=== PATIENT | female | born 1985 | race Caucasian/White ===

== ENCOUNTER 2016-07-21 18:37 | Emergency (ER) | payer OTHER ==
[2016-07-21] MEDS ORDERED: MORPHINE SULFATE 2 MG INJ IV ONE (19:11)
[2016-07-21] MEDS ORDERED: Phenergan 25 MG INJ IV ONE (19:11)
[2016-07-21] MEDS ORDERED: Phenergan 25 MG INJ ONE (19:17)
[2016-07-21] MEDS ORDERED: MORPHINE SULFATE 2 MG INJ ONE (19:18)
[2016-07-21 19:36] LABS: Mean Cell Volume 93.1 fl (78-100); Mean Corpuscular Hemoglobin 31.5 pg (26-32); Mean Platelet Volume 9.3 fl (6-9.5); Platelet Count 335 K/mm3 (150-450); Red Blood Count 4.35 M/mm3 (4.1-5.4); White Blood Count 10.9 K/mm3 (4.0-10.5)
--- NOTE | 2016-07-21 19:43 | ERPHSYRPT ---
- History of Present Illness Time Seen by Provider: 07/21/16 19:38 Source: patient Exam Limitations: no limitations Patient Subjective Stated Complaint: PT HERE FOR INFECTED TATTOO FOR 3 1/2 WEEKS NOW, HAS BEEN ON 2 ROUNDS OF ANTIBOTICS,CO PAIN TO RIGHT FOOT Triage Nursing Assessment: PT ALERT, RESP EASY, SKIN W/D, RIGHT FOOT WITH TATTOO TO TOP OF FOOT THAT IS OPEN, DRAINING YELLOW DRAINAGE, HAS SCAB TO CENTER OF TATTOO Physician History: Pt had tatoo on 5/6 on both feet. Since then R foot with swelling, redness and pain to top of foot. Have been on 2 rounds of antibiotics, Keflex and Cipro, with minimal relief. Noitced yellowish fluid discharge yesterday. No fever, chills, dizziness or weakness. Timing/Duration: week(s) (2), constant Quality: burning, painful Severity: moderate Location: feet (R) Possible Causes: other (Tattoo) Modifying Factors: Improves With: other (Naproxen) Associated Symptoms: No change in skin texture, No fever, No numbness, No paresthesia Allergies/Adverse Reactions: No Known Drug Allergies Allergy (Verified 07/21/16 18:50) Home Medications: Humalog 10 units SQ TID 06/08/12 [History] Alprazolam 1 mg [Xanax 1 mg] 1 mg PO DAILY 02/13/14 [History] Simvastatin 0 mg PO DAILY 02/13/14 [History] Insulin Detemir [Levemir] 15 units BID 07/21/16 [History] Lisinopril 5 mg DAILY 07/21/16 [History] Hx Tetanus, Diphtheria Vaccination/Date Given: Yes (2015) Hx Influenza Vaccination/Date Given: No Hx Pneumococcal Vaccination/Date Given: No Immunizations Up to Date: Yes - Review of Systems Constitutional: No Fever, No Chills Eyes: No Symptoms Ears, Nose, & Throat: No Symptoms Respiratory: No Cough, No Dyspnea Cardiac: No Chest Pain, No Edema, No Syncope Abdominal/Gastrointestinal: No Abdominal Pain, No Nausea, No Vomiting, No Diarrhea Genitourinary Symptoms: No Dysuria Musculoskeletal: No Back Pain, No Neck Pain Skin: Cellulitis (top of R foot with some erythema and tenderness. No discharge noted ), No Rash Neurological: No Dizziness, No Focal Weakness, No Sensory Changes Psychological: No Symptoms Endocrine: No Symptoms All Other Systems: Reviewed and Negative - Past Medical History Pertinent Past Medical History: Yes Neurological History: No Pertinent History, Peripheral Neuropathy ENT History: No Pertinent History Cardiac History: No Pertinent History Respiratory History: No Pertinent History Endocrine Medical History: Diabetes Type I Musculoskeletal History: No Pertinent History GI Medical History: No Pertinent History History: No Pertinent History Psycho-Social History: Anxiety, Depression Female Reproductive Disorders: No Pertinent History Other Medical History: was taken off of diabetic pump and put on sub q insulin coverage- 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 - Past Surgical History Past Surgical History: Yes Neuro Surgical History: No Pertinent History Cardiac: No Pertinent History Respiratory: No Pertinent History Gastrointestinal: No Pertinent History Genitourinary: No Pertinent History Musculoskeletal: No Pertinent History Female Surgical History: Dilation & Curettage, Section - Social History Smoking Status: Current some day smoker (1/2 - PPD) How long have you smoked: 10 Exposure to second hand smoke: Yes Alcohol Use: None Drug Use: none Patient Lives Alone: No Significant Family History: heart disease, diabetes - Female History Hx Last Menstrual Period: UNKNOWN - Nursing Vital Signs Nursing Vital Signs: Initial Vital Signs Temperature 97.2 F Pulse Rate 115 Respiratory Rate 16 Blood Pressure [Left Arm] 138/87 Pain Intensity 8 - Physical Exam General Appearance: no apparent distress, alert Eye Exam: PERRL/EOMI, eyes nml inspection Ears, Nose, Throat Exam: normal ENT inspection, pharynx normal, moist mucous membranes Neck Exam: normal inspection, non-tender, supple, full range of motion Respiratory Exam: normal breath sounds, lungs clear, No respiratory distress Cardiovascular Exam: regular rate/rhythm, normal heart sounds Gastrointestinal/Abdomen Exam: soft, mass, No tenderness Back Exam: normal inspection, normal range of motion, No CVA tenderness, No vertebral tenderness Extremity Exam: normal range of motion, other (R foot: top of foot with some swelling/tenderness, no discharge noted, +2 DP bilat.) Neurologic Exam: alert, oriented x 3, cooperative, normal mood/affect, sensation nml, No motor deficits Skin Exam: normal color, warm, dry SpO2: 97 Oxygen Delivery: Room Air - Course Nursing assessment & vital signs reviewed: Yes Ordered Tests: Active Orders 24 hr Category Date Time Status IV Insertion STAT Care 07/21/16 19:09 Active BMP Stat Lab 07/21/16 19:23 Completed CBC W DIFF Stat Lab 07/21/16 19:23 Completed Manual Differential NC Stat Lab 07/21/16 19:23 Completed UA W/ MICROSCOPIC Stat Lab 07/21/16 19:23 Completed Urine Triage Profile Stat Lab 07/21/16 19:23 Completed Medication Summary Discontinued Medications Generic Name Dose Route Start Last Admin Trade Name Chaim PRN Reason Stop Dose Admin Ceftriaxone Sodium/Dextrose 1 g in 50 mls @ 100 mls/hr 07/21/16 19:47 19:55 Rocephin 1 Gm-D5w 50 Ml Bag IV 07/21/16 20:16 100 mls/hr STAT STA Administration Ceftriaxone Sodium/Dextrose Confirm 07/21/16 19:54 Rocephin 1 Gm-D5w 50 Ml Bag Administered 07/21/16 19:55 Dose 1 g in 50 mls @ ud IV .STK-MED ONE Morphine Sulfate 2 mg 07/21/16 19:11 07/21/16 19:20 Morphine Sulfate 2 Mg Inj IV 07/21/16 19:12 2 mg STAT ONE Administration Morphine Sulfate Confirm 07/21/16 19:18 Morphine Sulfate 2 Mg Inj Administered 07/21/16 19:19 Dose 2 mg .ROUTE .STK-MED ONE Promethazine HCl 12.5 mg 07/21/16 19:11 07/21/16 19:20 Phenergan 25 Mg Inj IV 07/21/16 19:12 12.5 mg STAT ONE Administration Promethazine HCl Confirm 07/21/16 19:17 Phenergan 25 Mg Inj Administered 07/21/16 19:18 Dose 25 mg .ROUTE .STK-MED ONE Lab/Rad Data: Laboratory Result Diagrams 07/21/16 19:23 07/21/16 19:23 Laboratory Results 07/21/16 07/21/16 07/21/16 Range/Units 19:23 19:23 19:23 WBC (4.0-10.5) K/mm3 RBC (4.1-5.4) M/mm3 Hgb (12.0-16.0) gm/dl Hct (35-47) % MCV (78-100) fl MCH (26-32) pg MCHC (32-36) g/dl RDW (11.5-14.0) % Plt Count (150-450) K/mm3 MPV (6-9.5) fl Segmented Neutrophils (36.0-66.0) % Band Neutrophils (0.0-2.0) % Lymphocytes (Manual) (24-44) % Monocytes (Manual) (0.0-12.0) % Eosinophils (Manual) (0.00-3.0) % Differential Comment Atypical Lymphocytes % Platelet Estimate (NORMAL) Sodium 141 (136-145) mEq/L Potassium 3.9 (3.5-5.1) mEq/L Chloride 104 (98-107) mEq/L Carbon Dioxide 29.3 (21-32) mEq/L Anion Gap 11.3 (5-15) MEQ/L BUN 17 (9-20) mg/dL Creatinine 0.88 (0.55-1.30) mg/dl Estimated GFR > 60 ML/MIN Glucose 137 H (70-110) MG/DL Calcium 9.9 (8.5-10.1) mg/dL Ur Collection Type CLEAN CATCH Urine Color YELLOW (YELLOW) Urine Appearance CLEAR (CLEAR) Urine pH 7.0 (5-6) Ur Specific [place] 1.025 (1.005-1.025) Urine Protein 100 (Negative) Urine Glucose (UA) 100 (NEGATIVE) mg/dL Urine Ketones NEGATIVE (NEGATIVE) Urine Nitrite NEGATIVE (NEGATIVE) Urine Bilirubin NEGATIVE (NEGATIVE) Urine Urobilinogen 0.2 (0-1) mg/dL Urine WBC (Auto) NEGATIVE (NEGATIVE) Urine RBC (Auto) TRACE-INTACT (0-5) Rodney/ul Urine Microscopic RBC 0-2 (0-2) /HPF Urine Microscopic WBC 0-2 (0-5) /HPF Ur Epithelial Cells MODERATE (FEW) /HPF Urine Bacteria RARE (NEGATIVE) /HPF Hyaline Casts 0-2 (0-2) /LPF Urine Opiates Level NEG. (NEGATIVE) Ur Methadone NEG. (NEGATIVE) Urine Barbiturates NEG. (NEGATIVE) Ur Phencyclidine (PCP) NEG. (NEGATIVE) Urine Amphetamine NEG. (NEGATIVE) U Benzodiazepine Level NEG. (NEGATIVE) Urine Cocaine NEG. (NEGATIVE) Urine Marijuana (THC) NEG. (NEGATIVE) Specimen Received 07/21/16 19207/21/16 Range/Units 19:23 WBC 10.9 H (4.0-10.5) K/mm3 RBC 4.35 (4.1-5.4) M/mm3 Hgb 13.7 (12.0-16.0) gm/dl Hct 40.5 (35-47) % MCV 93.1 (78-100) fl MCH 31.5 (26-32) pg MCHC 33.8 (32-36) g/dl RDW 13.0 (11.5-14.0) % Plt Count 335 (150-450) K/mm3 MPV 9.3 (6-9.5) fl Segmented Neutrophils 43 (36.0-66.0) % Band Neutrophils 1 (0.0-2.0) % Lymphocytes (Manual) 43 (24-44) % Monocytes (Manual) 3 (0.0-12.0) % Eosinophils (Manual) 2 (0.00-3.0) % Differential Comment NORMAL Atypical Lymphocytes 8 % Platelet Estimate NORMAL (NORMAL) Sodium (136-145) mEq/L Potassium (3.5-5.1) mEq/L Chloride (98-107) mEq/L Carbon Dioxide (21-32) mEq/L Anion Gap (5-15) MEQ/L BUN (9-20) mg/dL Creatinine (0.55-1.30) mg/dl Estimated GFR ML/MIN Glucose (70-110) MG/DL Calcium (8.5-10.1) mg/dL Ur Collection Type Urine Color (YELLOW) Urine Appearance (CLEAR) Urine pH (5-6) Ur Specific [place] (1.005-1.025) Urine Protein (Negative) Urine Glucose (UA) (NEGATIVE) mg/dL Urine Ketones (NEGATIVE) Urine Nitrite (NEGATIVE) Urine Bilirubin (NEGATIVE) Urine Urobilinogen (0-1) mg/dL Urine WBC (Auto) (NEGATIVE) Urine RBC (Auto) (0-5) Rodney/ul Urine Microscopic RBC (0-2) /HPF Urine Microscopic WBC (0-5) /HPF Ur Epithelial Cells (FEW) /HPF Urine Bacteria (NEGATIVE) /HPF Hyaline Casts (0-2) /LPF Urine Opiates Level (NEGATIVE) Ur Methadone (NEGATIVE) Urine Barbiturates (NEGATIVE) Ur Phencyclidine (PCP) (NEGATIVE) Urine Amphetamine (NEGATIVE) U Benzodiazepine Level (NEGATIVE) Urine Cocaine (NEGATIVE) Urine Marijuana (THC) (NEGATIVE) Specimen Received - Progress Progress: improved Progress Note: 07/21/16 20:32 Pt. given Rocephin, Morphine for discomfort, which did give her some relief Counseled pt/family regarding: lab results, diagnosis - Departure Time of Disposition: 20:32 Departure Disposition: Home Clinical Impression: Cellulitis Condition: Stable Critical Care Time: No Instructions: Cellulitis -- Adult Additional Instructions: RX: Augmenti XR, [place] Elevate R foot, ice, Motrin 600mg every 6 hrs with food to decrease pain/ swelling Return for worse pain, redness, swelling, fever, chills or any problems Prescriptions: Hydrocodone Bit/Acetaminophen [[place] 5-325 Tablet] 1 each PO Q6H PRN PRN #12 tablet PRN Reason: Pain Amoxicillin/Potassium Clav [Augmentin 875-125 Tablet] 1 each PO BID #20 tablet
[2016-07-21 19:44] LABS: ANION GAP 11.3 MEQ/L (5-15); BLOOD UREA NITROGEN 17 mg/dL (9-20); CHLORIDE 104 mEq/L (98-107); Carbon Dioxide 29.3 mEq/L (21-32); Glucose 137 MG/DL (70-110); Potassium 3.9 mEq/L (3.5-5.1); SODIUM 141 mEq/L (136-145)
[2016-07-21] MEDS ORDERED: ROCEPHIN 1 Gm-D5w 50 ml Bag** 1 G/50 ML IVPB IV STA (19:47)
[2016-07-21 19:53] LABS: Collection Type CLEAN CATCH
[2016-07-21 19:54] LABS: ADD URINE CULTURE? NO (NO); Bacteria RARE /HPF (NEGATIVE); COMPLETE URINE MICROSCOPIC? YES; Epithelial Cells MODERATE /HPF (FEW); Hyaline Casts 0-2 /LPF (0-2); WBC 0-2 /HPF (0-5)
[2016-07-21] MEDS ORDERED: ROCEPHIN 1 Gm-D5w 50 ml Bag** 1 G/50 ML IVPB IV ONE (19:54)
[2016-07-21 20:08] LABS: ATYPICAL LYMPHS 8 %; BAND 1 % (0.0-2.0); Eosinophil 2 % (0.00-3.0); Platelet Estimate NORMAL (NORMAL); Total Cells Counted 100
[2016-07-21 20:51] VITALS: BP 140/88; PULSE 102; O2SAT 96
== END 2016-07-21 20:55 | disposition home or self-care (01) ==
LOC: ED 18:37
DX: L03.115 Cellulitis of right lower limb (principal); L81.8 Other specified disorders of pigmentation
CPT/HCPCS: 36000; 36415; 80048; 80307; 81000; 85025; 96365; 96374; 99284; J0696; J2270; J2550

== ENCOUNTER 2016-09-10 22:32 | Inpatient (IN) | payer OTHER ==
[2016-09-10] MEDS ORDERED: Sodium Chloride 0.9% 1000 ML 1,000 ML IV SCH (23:00)
[2016-09-10 23:11] LABS: Lactic Acid 2.2 (0.4-2.0)
[2016-09-10] MEDS ORDERED: NORCO 5/325 MG PO ONE (23:16)
[2016-09-10 23:19] LABS: Mean Cell Volume 92.3 fl (78-100); Mean Platelet Volume 10.8 fl (6-9.5); Platelet Count 255 K/mm3 (150-450); Red Blood Count 3.65 M/mm3 (4.1-5.4); Red Cell Distribution Width 12.9 % (11.5-14.0); White Blood Count 13.2 K/mm3 (4.0-10.5)
[2016-09-10] MEDS ORDERED: Vancomycin 1GM/ Ns 250ML*** 250 ML IV ONE (23:23)
[2016-09-10] MEDS ORDERED: Sodium Chloride 0.9% 1000 ML 1,000 ML ONE (23:24)
[2016-09-10] MEDS ORDERED: NORCO 5/325 MG ONE (23:24)
[2016-09-10 23:29] LABS: Mean Corpuscular Hemoglobin 31.7 pg (26-32)
[2016-09-10 23:38] LABS: VBG BASE EXCESS -3.1 (-2.0-2.0); VBG CARBOXYHEMOGLOBIN 2.6 % T HGB (0.0-6.9); VBG HCO3- 20.9 meq/L (22-28); VBG HEMOGLOBIN 11.8; VBG O2 SATURATION 81.1 (95-100); VBG POTASSIUM 4.5 (3.5-5.1); VBG pH 7.41 (7.32-7.42)
[2016-09-10 23:41] LABS: ALBUMIN 1.8 g/dL (3.4-5.0); ALKALINE PHOSPHATASE 603 U/L (46-116); ANION GAP 20.1 MEQ/L (5-15); BLOOD UREA NITROGEN 15 mg/dL (9-20); CHLORIDE 93 mEq/L (98-107); Carbon Dioxide 22.8 mEq/L (21-32); Potassium 3.9 mEq/L (3.5-5.1); SGOT/AST 81 U/L (15-37); SGPT/ALT 182 U/L (12-78); SODIUM 132 mEq/L (136-145); Total Protein 6.3 gm/dL (6.4-8.2)
[2016-09-10 23:56] LABS: Glucose 517 MG/DL (70-110)
[2016-09-11 00:08] LABS: Bilirubin NEGATIVE (NEGATIVE); Blood NEGATIVE Ery/ul (0-5); COMPLETE URINE MICROSCOPIC? NO; Collection Type CLEAN CATCH; Glucose 1000 mg/dL (NEGATIVE); Leukocyte Esterase NEGATIVE (NEGATIVE)
[2016-09-11 00:25] LABS: ATYPICAL LYMPHS 1 %; BAND 12 % (0.0-2.0); Dohle Bodies 2+; Eosinophil 2 % (0.00-3.0); Metamyelocyte 2 %; Platelet Estimate NORMAL (NORMAL); Total Cells Counted 100
[2016-09-11] MEDS ORDERED: Azactam 1 GM/100 ML D5W 1 GM/100 ML IVPB IV ONE (00:33)
[2016-09-11] MEDS ORDERED: Sodium Chloride 0.9% 500 ML 500 ML IV ONE (00:36)
[2016-09-11] MEDS ORDERED: NovoLIN R SQ STA (00:42)
[2016-09-11] MEDS ORDERED: NovoLIN R ONE ×2 (00:48→02:06)
[2016-09-11] MEDS ORDERED: Sodium Chloride 0.9% 1000 ML 1,000 ML ONE ×2 (00:48→02:07)
--- NOTE | 2016-09-11 00:52 | ERPHSYRPT ---
- History of Present Illness Source: patient Exam Limitations: clinical condition Patient Subjective Stated Complaint: pt states she has a wound to her head where she hit it on her car door a week ago thursday. states she has been having fever, chill, and aches. Triage Nursing Assessment: pt alert and oriented, asnwers questions approp. pt ambulatory with steady gait noted. respirations nonlabored with lungs cta. mult scabs noted to bilat lower ext. scab noted to lt posterior head with redness surrounding. Physician History: Patient with history of head injuries in 9 days ago on corner of a car door without loss of consciousness did not think much of it. The area has been slightly swollen and painful since that time was seen at [facility] 2 days ago had a head CT was placed on Cleocin antibiotic as well as Naprosyn. She had abnormal liver enzymes at that time. She has had poor appetite but has been trying to drink water think she is dehydrated. Patient has juvenile diabetic and sugars she thinks is probably also out of control. Had a fever today without treatment at home. Had a head CT done at that time not sure what it showed. Patient was given prescription for Cleocin and Naprosyn at that time records from [facility] were reviewed. There was a fluid collection/ possible hematoma left occipital area. No nausea or vomiting just very poor appetite. Timing/Duration: today, day(s) (9), worse Fever Severity: mild Associated Symptoms: cough, headache, muscle aches, weakness Allergies/Adverse Reactions: No Known Drug Allergies Allergy (Verified 09/10/16 22:54) Home Medications: Humalog 12 units SQ TID 06/08/12 [History] Alprazolam 1 mg [Xanax 1 mg] 1 mg PO DAILY 02/13/14 [History] Insulin Detemir [Levemir] 15 units BID 07/21/16 [History] Hx Tetanus, Diphtheria Vaccination/Date Given: Yes (2015) Hx Influenza Vaccination/Date Given: No Hx Pneumococcal Vaccination/Date Given: No Immunizations Up to Date: Yes - Review of Systems Constitutional: Fever, Chills, Fatigue, Lethargy, Malaise, Weakness Eyes: No Symptoms Ears, Nose, & Throat: No Symptoms Respiratory: Cough (NONPRODUCTIVE NO WHEEZING OR SHORTNESS OF BREATH) Cardiac: No Symptoms Abdominal/Gastrointestinal: Appetite Changes, No Abdominal Pain, No Nausea, No Vomiting Genitourinary Symptoms: No Symptoms Musculoskeletal: No Symptoms Skin: No Symptoms Neurological: Headache Psychological: No Symptoms Endocrine: No Symptoms Hematologic/Lymphatic: No Symptoms Immunological/Allergic: No Symptoms All Other Systems: Reviewed and Negative - Past Medical History Pertinent Past Medical History: Yes Neurological History: No Pertinent History, Peripheral Neuropathy ENT History: No Pertinent History Cardiac History: No Pertinent History Respiratory History: No Pertinent History Endocrine Medical History: Diabetes Type I Musculoskeletal History: No Pertinent History GI Medical History: No Pertinent History History: No Pertinent History Psycho-Social History: Anxiety, Depression Female Reproductive Disorders: No Pertinent History Other Medical History: was taken off of diabetic pump and put on sub q insulin coverage- sees [facility] um rn - Past Surgical History Past Surgical History: Yes Neuro Surgical History: No Pertinent History Cardiac: No Pertinent History Respiratory: No Pertinent History Gastrointestinal: No Pertinent History Genitourinary: No Pertinent History Musculoskeletal: No Pertinent History Female Surgical History: Dilation & Curettage, Section - Social History Smoking Status: Current some day smoker How long have you smoked: 10 Exposure to second hand smoke: Yes Alcohol Use: None Drug Use: none Patient Lives Alone: No Significant Family History: heart disease, diabetes - Female History Hx Last Menstrual Period: depo shot - Nursing Vital Signs Nursing Vital Signs: Initial Vital Signs Temperature 98.6 F 09/10/16 22:38 Pulse Rate 105 H 09/10/16 22:38 Respiratory Rate 18 09/10/16 22:38 Blood Pressure 142/74 09/10/16 22:38 O2 Sat by Pulse Oximetry 97 09/10/16 22:38 Pain Scale Pain Intensity 8 - Physical Exam General Appearance: moderate distress, thin Eye Exam: PERRL/EOMI, eyes nml inspection, No photophobia ENT Exam: normal ENT inspection Neck Exam: normal inspection, non-tender, supple, full range of motion Respiratory Exam: normal breath sounds, decreased air movement Cardiovascular/Chest Exam: normal heart sounds, regular rate/rhythm, murmur Gastrointestinal/Abdominal Exam: soft, non tender, no distention, no mass, no guarding Pelvic Exam: not done Rectal Exam: deferred Extremity Exam: non-tender, normal range of motion, normal inspection Neurologic Exam: alert, oriented x 3, cooperative, co founder & ceo II-XII nml as tested, other (TENDER SLIGHTLY RAISED AREA OF EDEMA LEFT OCCIPITAL AREA WITH SMALL CENTRAL ABRASION) Skin Exam: normal color, warm, dry, rash (BILATERAL DORSAL FEET) Lymphatic: No adenopathy SpO2 Interpretation: borderline oxygenation SpO2: 92 (O2 APPLIED) Oxygen Delivery: Room Air - Course Nursing assessment & vital signs reviewed: Yes - Radiology Exams Chest X-ray Interpretation: Reviewed by me, Discussed w/ radiologist, Negative - CT Exams Head CT Interpretation: Tele-radiologist Report, Other (NO ACUTE INTRACRANIAL PATHOLOGY CONTINUES WITH AREA OF SOFT TISSUE SWELLING LEFT SUBOCCIPITAL AREA) Ordered Tests: Active Orders 24 hr Category Date Time Status Accucheck STAT Care 09/10/16 22:54 Active Accucheck STAT Care 09/11/16 00:29 Active A P Mechanic STAT Care 09/10/16 22:54 Active IV Insertion STAT Care 09/10/16 22:54 Active Pulse Oximetry (ED) STAT Care 09/10/16 22:54 Active Rectal Temperature STAT Care 09/10/16 22:54 Active CHEST 1 VIEW (PORTABLE) Stat Exams 09/10/16 23:10 Taken HEAD WITHOUT CONTRAST [CT] Stat Exams 09/11/16 02:40 Taken AMYLASE Stat Lab 09/11/16 00:00 Completed BLOOD CULTURE Stat Lab 09/10/16 23:14 Received CBC W DIFF Stat Lab 09/10/16 23:13 Completed CMP Stat Lab 09/10/16 23:13 Completed CULTURE, THROAT Stat Lab 09/10/16 23:14 Received CULTURE,URINE Stat Lab 09/10/16 22:55 Ordered HCG QUALITATIVE,SERUM Stat Lab 09/10/16 23:13 Completed LIPASE Stat Lab 09/11/16 00:00 Completed Lactic Acid Stat Lab 09/10/16 23:06 Completed Lactic Acid Stat Lab 09/11/16 02:04 Completed Lactic Acid Stat Lab 09/11/16 04:32 Ordered Manual Differential NC Stat Lab 09/10/16 23:13 Completed STREP SCREEN-BETA A Stat Lab 09/10/16 23:14 Completed UA Stat Lab 09/11/16 00:02 Completed VENOUS BLOOD GAS Stat Lab 09/10/16 23:06 Completed Transfer Order Routine Transfer 09/11/16 04:13 Ordered Medication Summary Generic Name Dose Route Start Last Admin Trade Name Freq PRN Reason Stop Dose Admin Sodium Chloride 1,000 mls @ 100 mls/hr 09/11/16 04:15 07/20/17 04:12 Sodium Chloride 0.9% 1000 Ml IV 10/11/16 04:14 100 mls/hr .Q10H ELOY Administration Discontinued Medications Generic Name Dose Route Start Last Admin Trade Name Chaim PRN Reason Stop Dose Admin Hydrocodone Bitart/Acetaminophen 1 tab 09/10/16 23:16 09/10/16 23:26 [place] 5/325 Mg PO 09/10/16 23:17 1 tab SENT HOME W/ PATIENT ONE Administration Hydrocodone Bitart/Acetaminophen Confirm 09/10/16 23:24 [place] 5/325 Mg Administered 09/10/16 23:25 Dose 1 tab .ROUTE .STK-MED ONE Hydrocodone Bitart/Acetaminophen 1 tab 09/11/16 02:20 09/11/16 02:48 [place] 5/325 Mg PO 09/11/16 02:21 1 tab STAT ONE Administration Hydrocodone Bitart/Acetaminophen Confirm 09/11/16 02:30 [place] 5/325 Mg Administered 09/11/16 02:31 Dose 1 tab .ROUTE .STK-MED ONE Sodium Chloride 1,000 mls @ 100 mls/hr 09/10/16 23:00 09/10/16 23:50 Sodium Chloride 0.9% 1000 Ml IV 10/10/16 22:59 999 mls/hr .Q10H ELOY Administration Sodium Chloride Confirm 09/10/16 23:24 Sodium Chloride 0.9% 1000 Ml Administered 09/10/16 23:25 Dose 1,000 mls @ ud .ROUTE .STK-MED ONE Vancomycin HCl 250 mls @ 167 mls/hr 09/10/16 23:23 09/10/16 23:45 Vancomycin 1gm/ Ns 250ml IV 09/11/16 00:52 167 mls/hr STAT ONE Administration Aztreonam 1 gm in 100 mls @ 200 mls/hr 09/11/16 00:33 09/11/16 01:53 Azactam 1 Gm/100 Ml D5w IV 09/11/16 01:02 200 mls/hr STAT ONE Administration Sodium Chloride 500 mls @ 500 mls/hr 09/11/16 00:36 09/11/16 00:51 Sodium Chloride 0.9% 500 Ml IV 09/11/16 01:35 500 mls/hr .Q1H ONE Administration Sodium Chloride Confirm 09/11/16 00:48 Sodium Chloride 0.9% 1000 Ml Administered 09/11/16 00:49 Dose 1,000 mls @ ud .ROUTE .[facility] ONE Insulin Human Regular 100 101 mls @ 6.06 mls/hr 09/11/16 02:00 09/11/16 03:35 units/ Sodium Chloride IV 10/11/16 01:59 3 units/hr .[id number] ELOY 3.03 mls/hr 6 UNITS/HR Infusion Sodium Chloride Confirm 09/11/16 02:07 Sodium Chloride 0.9% 100 Ml Ivpb Administered 09/11/16 02:08 Dose 100 mls @ ud IV .STK-MED ONE Sodium Chloride Confirm 09/11/16 02:07 Sodium Chloride 0.9% 1000 Ml Administered 09/11/16 02:08 Dose 1,000 mls @ ud .ROUTE .[facility] ONE Insulin Human Regular 100 101 mls @ 3.03 mls/hr 09/11/16 03:45 units/ Sodium Chloride IV 10/11/16 03:44 .Q24H ELOY 3 UNITS/HR Insulin Human Regular 8 unit 09/11/16 00:42 09/11/16 00:51 Novolin R SQ 09/11/16 00:43 8 unit STAT STA Administration Insulin Human Regular Confirm 09/11/16 00:48 Novolin R Administered 09/11/16 00:49 Dose 8 unit .ROUTE .[facility] ONE Insulin Human Regular Confirm 09/11/16 02:06 Novolin R Administered 09/11/16 02:07 Dose 1 unit .ROUTE .[facility] ONE Lab/Rad Data: Laboratory Result Diagrams 09/10/16 23:13 09/10/16 23:13 Laboratory Results 09/11/16 09/11/16 09/11/16 Range/Units 02:04 00:02 00:00 WBC (4.0-10.5) K/mm3 RBC (4.1-5.4) M/mm3 Hgb (12.0-16.0) gm/dl Hct (35-47) % MCV (78-100) fl MCH (26-32) pg MCHC (32-36) g/dl RDW (11.5-14.0) % Plt Count (150-450) K/mm3 MPV (6-9.5) fl Segmented Neutrophils (36.0-66.0) % Band Neutrophils (0.0-2.0) % Lymphocytes (Manual) (24-44) % Monocytes (Manual) (0.0-12.0) % Eosinophils (Manual) (0.00-3.0) % Metamyelocytes % Differential Comment Atypical Lymphocytes % Dohle Bodies Platelet Estimate (NORMAL) VBG pH (7.32-7.42) VBG pCO2 at Pat Temp (42-55) mm/Hg VBG pO2 at Pat Temp (25-40) mm/Hg VBG HCO3 (22-28) meq/L VBG O2 Sat (Alejandra) (95-100) VBG Base Excess (-2.0-2.0) VBG Hemoglobin VBG Carboxyhemoglobin (0.0-6.9) % T HGB POC Potassium (3.5-5.1) Sodium (136-145) mEq/L Potassium (3.5-5.1) mEq/L Chloride (98-107) mEq/L Carbon Dioxide (21-32) mEq/L Anion Gap (5-15) MEQ/L BUN (9-20) mg/dL Creatinine (0.55-1.30) mg/dl Estimated GFR ML/MIN Glucose (70-110) MG/DL Lactic Acid 2.4 H (0.4-2.0) Calcium (8.5-10.1) mg/dL Total Bilirubin (0.2-1.0) mg/dL AST (15-37) U/L ALT (12-78) U/L Alkaline Phosphatase (46-116) U/L Serum Total Protein (6.4-8.2) gm/dL Albumin (3.4-5.0) g/dL Amylase 10 L (25-115) U/L Lipase 59 L (73-393) U/L Serum , Qual (Negative) Ur Collection Type CLEAN CATCH Urine Color YELLOW (YELLOW) Urine Appearance CLEAR (CLEAR) Urine pH 5.0 (5-6) Ur Specific [place] 1.020 (1.005-1.025) Urine Protein NEGATIVE (Negative) Urine Ketones MODERATE (NEGATIVE) Urine Blood NEGATIVE (0-5) Rodney/ul Urine Nitrite NEGATIVE (NEGATIVE) Urine Bilirubin NEGATIVE (NEGATIVE) Urine Urobilinogen NORMAL (0-1) mg/dL Ur Leukocyte Esterase NEGATIVE (NEGATIVE) Urine Glucose 1000 (NEGATIVE) mg/dL Streptococcus Screen (Negative) Specimen Received 09/10/16 2403 09/10/16 09/10/16 09/10/16 Range/Units 23:14 23:13 23:13 WBC (4.0-10.5) K/mm3 RBC (4.1-5.4) M/mm3 Hgb (12.0-16.0) gm/dl Hct (35-47) % MCV (78-100) fl MCH (26-32) pg MCHC (32-36) g/dl RDW (11.5-14.0) % Plt Count (150-450) K/mm3 MPV (6-9.5) fl Segmented Neutrophils (36.0-66.0) % Band Neutrophils (0.0-2.0) % Lymphocytes (Manual) (24-44) % Monocytes (Manual) (0.0-12.0) % Eosinophils (Manual) (0.00-3.0) % Metamyelocytes % Differential Comment Atypical Lymphocytes % Dohle Bodies Platelet Estimate (NORMAL) VBG pH (7.32-7.42) VBG pCO2 at Pat Temp (42-55) mm/Hg VBG pO2 at Pat Temp (25-40) mm/Hg VBG HCO3 (22-28) meq/L VBG O2 Sat (Alejandra) (95-100) VBG Base Excess (-2.0-2.0) VBG Hemoglobin VBG Carboxyhemoglobin (0.0-6.9) % T HGB POC Potassium (3.5-5.1) Sodium 132 L (136-145) mEq/L Potassium 3.9 (3.5-5.1) mEq/L Chloride 93 L (98-107) mEq/L Carbon Dioxide 22.8 (21-32) mEq/L Anion Gap 20.1 H (5-15) MEQ/L BUN 15 (9-20) mg/dL Creatinine 1.05 (0.55-1.30) mg/dl Estimated GFR > 60 ML/MIN Glucose 517 H* (70-110) MG/DL Lactic Acid (0.4-2.0) Calcium 9.0 (8.5-10.1) mg/dL Total Bilirubin 1.20 H (0.2-1.0) mg/dL AST 81 H (15-37) U/L ALT 182 H (12-78) U/L Alkaline Phosphatase 603 H (46-116) U/L Serum Total Protein 6.3 L (6.4-8.2) gm/dL Albumin 1.8 L (3.4-5.0) g/dL Amylase (25-115) U/L Lipase (73-393) U/L Serum , Qual NEGATIVE (Negative) Ur Collection Type Urine Color (YELLOW) Urine Appearance (CLEAR) Urine pH (5-6) Ur Specific [place] (1.005-1.025) Urine Protein (Negative) Urine Ketones (NEGATIVE) Urine Blood (0-5) Rodney/ul Urine Nitrite (NEGATIVE) Urine Bilirubin (NEGATIVE) Urine Urobilinogen (0-1) mg/dL Ur Leukocyte Esterase (NEGATIVE) Urine Glucose (NEGATIVE) mg/dL Streptococcus Screen NEGATIVE (Negative) Specimen Received 09/10/16 09/10/16 09/10/16 Range/Units 23:13 23:06 23:06 WBC 13.2 H (4.0-10.5) K/mm3 RBC 3.65 L (4.1-5.4) M/mm3 Hgb 11.6 L (12.0-16.0) gm/dl Hct 33.7 L (35-47) % MCV 92.3 (78-100) fl MCH 31.7 (26-32) pg MCHC 34.4 (32-36) g/dl RDW 12.9 (11.5-14.0) % Plt Count 255 (150-450) K/mm3 MPV 10.8 H (6-9.5) fl Segmented Neutrophils 63 (36.0-66.0) % Band Neutrophils 12 H (0.0-2.0) % Lymphocytes (Manual) 17 L (24-44) % Monocytes (Manual) 3 (0.0-12.0) % Eosinophils (Manual) 2 (0.00-3.0) % Metamyelocytes 2 % Differential Comment NORMAL Atypical Lymphocytes 1 % Dohle Bodies 2+ Platelet Estimate NORMAL (NORMAL) VBG pH 7.41 (7.32-7.42) VBG pCO2 at Pat Temp 33 L (42-55) mm/Hg VBG pO2 at Pat Temp 41 H (25-40) mm/Hg VBG HCO3 20.9 L (22-28) meq/L VBG O2 Sat (Alejandra) 81.1 L (95-100) VBG Base Excess -3.1 L (-2.0-2.0) VBG Hemoglobin 11.8 VBG Carboxyhemoglobin 2.6 (0.0-6.9) % T HGB POC Potassium 4.5 (3.5-5.1) Sodium (136-145) mEq/L Potassium (3.5-5.1) mEq/L Chloride (98-107) mEq/L Carbon Dioxide (21-32) mEq/L Anion Gap (5-15) MEQ/L BUN (9-20) mg/dL Creatinine (0.55-1.30) mg/dl Estimated GFR ML/MIN Glucose (70-110) MG/DL Lactic Acid 2.2 H (0.4-2.0) Calcium (8.5-10.1) mg/dL Total Bilirubin (0.2-1.0) mg/dL AST (15-37) U/L ALT (12-78) U/L Alkaline Phosphatase (46-116) U/L Serum Total Protein (6.4-8.2) gm/dL Albumin (3.4-5.0) g/dL Amylase (25-115) U/L Lipase (73-393) U/L Serum , Qual (Negative) Ur Collection Type Urine Color (YELLOW) Urine Appearance (CLEAR) Urine pH (5-6) Ur Specific [place] (1.005-1.025) Urine Protein (Negative) Urine Ketones (NEGATIVE) Urine Blood (0-5) Rodney/ul Urine Nitrite (NEGATIVE) Urine Bilirubin (NEGATIVE) Urine Urobilinogen (0-1) mg/dL Ur Leukocyte Esterase (NEGATIVE) Urine Glucose (NEGATIVE) mg/dL Streptococcus Screen (Negative) Specimen Received - Progress Progress: improved Progress Note: 09/11/16 04:06Patient's blood sugar under good control after insulin drip utilized and with blood sugar 245 now discontinued. Patient's initial lactate was 2.2 and was increased to 2.4 and 2 hours. Slightly elevated white blood cell count. Urine negative for infection but with moderate ketones. Patient with history of juvenile diabetes. Chest x-ray negative for pneumonia. Exact site of potential infection is unclear except for possible infected area left occipital area. Patient was treated with vancomycin and Azactam for possible sepsis. Also noted significantly elevated liver enzymes. All this was carefully discussed with Dr. Miranda and patient will be admitted observation for Dr. Wilcox's further evaluation and treatment. This is an acceptance the patient. - Departure Time of Disposition: 04:09 Departure Disposition: Observation Clinical Impression: Ketoacidosis, Elevated lactic acid level, POSSIBLE SEPSIS, RULE OUT INFECTION SUBOCCIPITAL AREA, CONTUSION LEFT SUBOCCIPITAL, Elevated liver enzymes Fever Qualifiers: Fever type: unspecified Qualified Code(s): R50.9 - Fever, unspecified Cephalgia Qualifiers: Headache type: post-traumatic Headache chronicity pattern: unspecified pattern Condition: Fair Critical Care Time: No Referrals: FROILAN FRANCO [Primary Care Provider] -
[2016-09-11] MEDS ORDERED: NOVOLIN R INSULIN (FOR DRIPS)** 100 UNITS in Sodium Chloride 0.9% 100 ML IVPB 100 ML IV SCH ×2 (02:00→03:45)
[2016-09-11] MEDS ORDERED: Sodium Chloride 0.9% 100 ML IVPB 100 ML IV ONE (02:07)
[2016-09-11] MEDS ORDERED: NORCO 5/325 MG PO ONE ×2 (02:20→10:30)
[2016-09-11] MEDS ORDERED: NORCO 5/325 MG ONE (02:30)
[2016-09-11 02:37] LABS: Lactic Acid 2.4 (0.4-2.0)
[2016-09-11 02:46] LABS: LIPASE 59 U/L (73-393)
[2016-09-11] MEDS: Sodium Chloride 0.9% 1000 ML 1,000 ML IV SCH ×2 (04:12→14:01)
[2016-09-11] MEDS ORDERED: Zofran 4 MG/2 ML VIAL IV PRN (04:51)
[2016-09-11] MEDS ORDERED: NovoLOG Insulin SQ PRN (04:51)
[2016-09-11] MEDS ORDERED: VANCOCIN 1 GM VIAL*** 1 GM in Sodium Chloride 0.9% 250 ML 250 ML IV SCH (04:51)
[2016-09-11] MEDS: ULTRAM 50 MG PO PRN ×3 (05:16→14:02)
[2016-09-11] MEDS ORDERED: AZACTAM 1 GM ONE (06:23)
[2016-09-11] MEDS: Azactam 1 GM/100 ML D5W 1 GM/100 ML IVPB IV SCH ×3 (07:15→22:39)
[2016-09-11 07:32] LABS: Mean Cell Volume 93.4 fl (78-100); Mean Platelet Volume 10.3 fl (6-9.5); Platelet Count 254 K/mm3 (150-450); Red Blood Count 3.17 M/mm3 (4.1-5.4); Red Cell Distribution Width 12.8 % (11.5-14.0); White Blood Count 11.4 K/mm3 (4.0-10.5)
[2016-09-11 07:46] LABS: ALBUMIN 1.5 g/dL (3.4-5.0); ALKALINE PHOSPHATASE 488 U/L (46-116); BLOOD UREA NITROGEN 13 mg/dL (9-20); CHLORIDE 99 mEq/L (98-107); Carbon Dioxide 20.9 mEq/L (21-32); Glucose 418 MG/DL (70-110); Mean Corpuscular Hemoglobin 32.1 pg (26-32); Potassium 3.2 mEq/L (3.5-5.1); SGOT/AST 49 U/L (15-37); SGPT/ALT 134 U/L (12-78); SODIUM 135 mEq/L (136-145); Total Protein 5.3 gm/dL (6.4-8.2)
--- NOTE | 2016-09-11 08:42 | XRAY ---
Indication: Fever and cough. Comparison: July 16, 2014. Portable chest again demonstrates right infrahilar fibrosis/scarring. Remaining heart, lungs, and bony thorax normal. Comment: Preliminary interpretation was made by [facility]. No critical discrepancy.
--- NOTE | 2016-09-11 08:47 | XRAY ---
Indication: Left posterior head swelling, laceration, and drainage. Car door injury 1.5 weeks ago. Multiple contiguous axial images obtained through the head without contrast. Comparison: None There is moderate-sized left posterior parietal scalp hematoma. Otherwise normal appearing brain parenchyma, ventricles, and bony calvarium. Visualized paranasal sinuses and mastoid air cells are clear. Impression: Left posterior parietal scalp hematoma. No underlying fracture or acute intracranial abnormalities. Comment: Preliminary interpretation was made by [facility]. No discrepancy. CTDI 50.87
[2016-09-11 09:22] LABS: BAND 2 % (0.0-2.0); Eosinophil 2 % (0.00-3.0); Total Cells Counted 100; Toxic Granulation 2+
[2016-09-11 09:23] LABS: Platelet Estimate NORMAL (NORMAL)
[2016-09-11] MEDS ORDERED: INSULIN DETEMIR 15 UNIT SQ SCH (10:00)
[2016-09-11] MEDS: Lantus Insulin SQ SCH ×2 (10:02→22:40)
[2016-09-11] MEDS: NovoLOG Insulin SQ SCH ×2 (10:03→16:20)
[2016-09-11] MEDS: VANCOCIN 1 GM VIAL*** 1 GM in Sodium Chloride 0.9% 250 ML 250 ML IV SCH ×2 (10:03→23:18)
[2016-09-11] MEDS ORDERED: INSULIN LISPRO 12 UNIT SQ SCH (11:30)
[2016-09-11] MEDS: NovoLOG Insulin SQ PRN (14:02)
[2016-09-11] MEDS: XANAX 1 MG PO SCH (22:38)
[2016-09-12] MEDS: NovoLOG Insulin SQ PRN ×4 (00:53→22:30)
[2016-09-12] MEDS: Sodium Chloride 0.9% 1000 ML 1,000 ML IV SCH ×2 (02:53→16:31)
[2016-09-12] MEDS: ULTRAM 50 MG PO PRN (03:21)
[2016-09-12] MEDS: Azactam 1 GM/100 ML D5W 1 GM/100 ML IVPB IV SCH ×3 (06:04→22:30)
[2016-09-12 07:15] LABS: HEPATITIS B VIRUS CORE TOT AB Non Reactive (Non Reactive); Hepatitis B Surface Ab.Quant. <3.50 mIU/mL (0.00-8.49)
[2016-09-12] MEDS: NovoLOG Insulin SQ SCH ×3 (07:17→16:12)
[2016-09-12 07:38] LABS: Mean Cell Volume 94.1 fl (78-100); Mean Platelet Volume 9.7 fl (6-9.5); Platelet Count 301 K/mm3 (150-450); Red Blood Count 3.23 M/mm3 (4.1-5.4); Red Cell Distribution Width 12.9 % (11.5-14.0)
[2016-09-12 07:39] LABS: Mean Corpuscular Hemoglobin 31.8 pg (26-32)
[2016-09-12 07:58] LABS: BAND 17 % (0.0-2.0); Eosinophil 5 % (0.00-3.0); Hypochromia 1+; Metamyelocyte 1 %; Platelet Estimate NORMAL (NORMAL); Polychromasia 1+; Total Cells Counted 100
[2016-09-12 08:00] LABS: ALBUMIN 1.5 g/dL (3.4-5.0); ALKALINE PHOSPHATASE 513 U/L (46-116); ANION GAP 10.9 MEQ/L (5-15); BLOOD UREA NITROGEN 7 mg/dL (9-20); CHLORIDE 102 mEq/L (98-107); Carbon Dioxide 26.5 mEq/L (21-32); Glucose 290 MG/DL (70-110); Potassium 3.1 mEq/L (3.5-5.1); SGOT/AST 67 U/L (15-37); SGPT/ALT 111 U/L (12-78); SODIUM 136 mEq/L (136-145); Total Protein 5.3 gm/dL (6.4-8.2)
[2016-09-12] MEDS: NORCO 5/325 MG PO PRN ×3 (09:09→22:30)
[2016-09-12] MEDS ORDERED: TROUGH DRUG LEVELS IJ ONE (09:30)
[2016-09-12] MEDS: Lantus Insulin SQ SCH ×2 (10:15→22:30)
[2016-09-12] MEDS: VANCOCIN 1 GM VIAL*** 1 GM in Sodium Chloride 0.9% 250 ML 250 ML IV SCH ×2 (10:45→23:16)
[2016-09-12] MEDS: XANAX 1 MG PO SCH (22:30)
[2016-09-13] MEDS: Azactam 1 GM/100 ML D5W 1 GM/100 ML IVPB IV SCH ×3 (05:48→22:35)
[2016-09-13] MEDS: NORCO 5/325 MG PO PRN ×4 (05:48→22:35)
[2016-09-13] MEDS: Sodium Chloride 0.9% 1000 ML 1,000 ML IV SCH ×2 (05:59→17:32)
[2016-09-13 06:08] LABS: Mean Cell Volume 94.7 fl (78-100); Mean Platelet Volume 9.9 fl (6-9.5); Platelet Count 306 K/mm3 (150-450); Red Blood Count 3.22 M/mm3 (4.1-5.4); Red Cell Distribution Width 12.7 % (11.5-14.0); White Blood Count 9.8 K/mm3 (4.0-10.5)
[2016-09-13 06:24] LABS: Mean Corpuscular Hemoglobin 31.6 pg (26-32)
[2016-09-13 06:39] LABS: ALBUMIN 1.6 g/dL (3.4-5.0); ALKALINE PHOSPHATASE 551 U/L (46-116); ANION GAP 10.6 MEQ/L (5-15); BLOOD UREA NITROGEN 7 mg/dL (9-20); CHLORIDE 100 mEq/L (98-107); Carbon Dioxide 29.5 mEq/L (21-32); Glucose 238 MG/DL (70-110); SGOT/AST 94 U/L (15-37); SGPT/ALT 112 U/L (12-78); SODIUM 137 mEq/L (136-145); Total Protein 5.5 gm/dL (6.4-8.2)
[2016-09-13 07:08] LABS: Potassium 2.9 mEq/L (3.5-5.1)
[2016-09-13 07:16] LABS: Eosinophil 1 % (0.00-3.0); Total Cells Counted 100
[2016-09-13 07:17] LABS: Platelet Estimate NORMAL (NORMAL)
[2016-09-13] MEDS: POTASSIUM CHLORIDE 20 mEq IN WATER 100ML 100 ML IV SCH ×2 (07:41→12:35)
[2016-09-13] MEDS: NovoLOG Insulin SQ SCH ×3 (07:41→16:01)
[2016-09-13] MEDS: NovoLOG Insulin SQ PRN ×3 (07:42→22:37)
[2016-09-13] MEDS: Lantus Insulin SQ SCH ×2 (10:22→22:36)
[2016-09-13] MEDS: Klor Con 10 MEQ PO SCH (10:22)
[2016-09-13] MEDS: VANCOCIN 1 GM VIAL*** 1 GM in Sodium Chloride 0.9% 250 ML 250 ML IV SCH ×2 (10:22→23:34)
--- NOTE | 2016-09-13 15:31 | HP ---
CHIEF COMPLAINT: Head injury, fever and chills. History of poorly controlled diabetes. Anxiety. HISTORY OF PRESENT ILLNESS: The patient is a 31 year-old white female who apparently hit her head on a car door a few days ago. She reports it has been swollen and becoming more tender. She developed fever and chills and aches. The patient presented herself to the emergency room and was found to have what was felt to be cellulitis over the area of the scalp although she has hair that is dyed red and it is difficult to appreciate any erythema. There was somewhat warmth over the area and slightly boggy. The patient had been given a prescription for Cleocin and Naproxen at the [facility] Emergency room for a visit 2 days prior to this. PAST MEDICAL HISTORY: As indicated above, significant for poorly controlled diabetes. HOME MEDICATIONS: Currently includes Humalog 12 Units t.i.d., alprazolam 1 mg daily for anxiety, Levemir 15 Units b.i.d. ALLERGIES: The patient reports no known drug allergies PHYSICAL EXAMINATION: GENERAL: Reveals a well nourished, well developed 31 year-old white female who is disheveled and complaining of a headache and laying in the bed in a darkened room. VITAL SIGNS: Her initial vital signs showed a temperature of 98.6, pulse 105, respirations 18, and blood pressure 142/74. O2 were 97% on room air. HEENT: Reveals tenderness and slightly bogginess to the scalp area. There appears to be slight drainage from where the patient has been pressing on it and trying to express pus. Pupils are equal, round, reactive to light, extraocular muscles intact. Oropharynx is pink and moist. NECK: Supple without lymphadenopathy, thyromegaly or JVD. CHEST: Clear to auscultation, good air movement bilaterally. HEART: Regular rate and rhythm without murmurs, rubs or gallops. ABDOMEN: Soft, nontender, nondistended without hepatosplenomegaly or masses. EXTREMITIES: Without cyanosis, clubbing or edema. LABS: The patient's lab studies showed a CT scan showing posterior parietal scalp hematoma with no underlying fracture or acute intracranial abnormalities. The patient's initial laboratory studies showed a lactic acid of 2.4. She had a blood sugar that was 517, a BUN of 15, a creatinine of 1.05. Her total bili was 1.20, SGOT 81, SGPT 182, edyta phosphotase 603. Venous blood gas showed a pH of 7.41, pCO2 33. Her strep screen was negative. Her white count was 13,200, hemoglobin 11.6, platelet count 255,000. HCG was negative. Amylase and lipase were 10 and 59 respectively. Urinalysis showed glucose of 1000but was otherwise essentially normal with specific gravity 1.020. Her differential showed a 12 bands and 63 polys. ASSESSMENT: * Patient with cellulitis of the scalp, possible abscess. We will obtain surgical consultation. * Type 1 diabetes mellitus out of control. We will follow her with sliding scale coverage. * Unexplained elevation liver enzymes. We will check a hepatitis panel. * The patient will be placed on IV Vancomycin and Azactam pending surgical consultation.
[2016-09-13] MEDS: ULTRAM 50 MG PO PRN (20:02)
[2016-09-13] MEDS: XANAX 1 MG PO SCH (22:35)
[2016-09-14] MEDS: Azactam 1 GM/100 ML D5W 1 GM/100 ML IVPB IV SCH (04:55)
[2016-09-14] MEDS: Sodium Chloride 0.9% 1000 ML 1,000 ML IV SCH (04:55)
[2016-09-14] MEDS: NORCO 5/325 MG PO PRN ×2 (05:08→10:26)
[2016-09-14 05:47] LABS: Mean Cell Volume 95.3 fl (78-100); Platelet Count 329 K/mm3 (150-450); Red Blood Count 3.18 M/mm3 (4.1-5.4); Red Cell Distribution Width 13.1 % (11.5-14.0); White Blood Count 11.1 K/mm3 (4.0-10.5)
[2016-09-14 06:04] LABS: ALBUMIN 1.8 g/dL (3.4-5.0); ALKALINE PHOSPHATASE 540 U/L (46-116); ANION GAP 11.3 MEQ/L (5-15); BLOOD UREA NITROGEN 8 mg/dL (9-20); CHLORIDE 100 mEq/L (98-107); Carbon Dioxide 27.4 mEq/L (21-32); Glucose 303 MG/DL (70-110); Mean Corpuscular Hemoglobin 31.7 pg (26-32); Potassium 3.5 mEq/L (3.5-5.1); SGOT/AST 86 U/L (15-37); SGPT/ALT 93 U/L (12-78); SODIUM 135 mEq/L (136-145); Total Protein 5.8 gm/dL (6.4-8.2)
[2016-09-14 06:24] LABS: BAND 1 % (0.0-2.0); Eosinophil 2 % (0.00-3.0); Platelet Estimate NORMAL (NORMAL); Total Cells Counted 100
[2016-09-14] MEDS: NovoLOG Insulin SQ SCH ×2 (08:03→12:03)
[2016-09-14] MEDS: NovoLOG Insulin SQ PRN (08:06)
--- NOTE | 2016-09-14 09:21 | PCM.DCORD ---
- Discharge Disposition: Home, Self-Care Prescriptions: Continue Alprazolam 1 mg [Xanax 1 mg] 1 mg PO HS Insulin Detemir [Levemir] 15 units BID Insulin Lispro [Humalog] 12 unit SQ TIDAC Insulin Lispro [Humalog] 0 unit SQ UD PRN PRN Reason: Hyperglycemia Follow up with: FROILAN FRANCO [Primary Care Provider] - 1 Week
[2016-09-14] MEDS: VANCOCIN 1 GM VIAL*** 1 GM in Sodium Chloride 0.9% 250 ML 250 ML IV SCH (09:39)
[2016-09-14] MEDS: Lantus Insulin SQ SCH (10:58)
[2016-09-14] MEDS: Klor Con 10 MEQ PO SCH (10:58)
[2016-09-14 11:12] VITALS: BP 140/76; PULSE 80; O2SAT 97
--- NOTE | 2016-09-15 13:40 | DS ---
DISCHARGE DIAGNOSES: 1) CELLULITIS. 2) DIABETES MELLITUS TYPE 1 OUT OF CONTROL. 3) ELEVATED LIVER ENZYMES. CONSULTANTS: Dr. Sharma. HISTORY: The patient is a 31 year-old white female with history of diabetes mellitus type 1. She hit her head on a car door. She had been seen in outpatient clinic and started on Cleocin and NSAID for pain relief. She reports as the pain got progressively worse she represented herself to the emergency room and was subsequently admitted to the hospital for further evaluation and management with the diagnosis of cellulitis and possible abscess. HOSPITAL COURSE: The patient was admitted to the [facility] and started on Azactam and Vancomycin. She had surgical consultation by Dr. Sharma who felt that incision and drainage was not warranted. She did improve on a daily but slow basis. Over the past 48 hours she has had no fever. Her white blood cell count has slowly decreased to 11.1 on the day of discharge with 1 band and 55 polys. Her hemoglobin 10.1, PLT count 329,000. The patient has had sugars that have been somewhat high. Her glucose on 09/14/2016 was 303, BUN 8, creatinine 0.64. Electrolytes were essentially normal. She had been hypokalemic the day before at 2.9. We started her on oral potassium at 10 mEq daily. Her liver enzymes have also remained somewhat elevated. They have normalized somewhat. Her SGOT 86, SGPT 93, alkaline phosphatase 540. By the day of discharge she was made aware of this and the fact that she needs a follow up with a GI specialist as an outpatient. We did check a hepatitis panel which was negative during her stay. The patient is now felt to be ready for discharge home. She is discharged home on Bactrim DS 1 tablet twice a day. She is also to continue the potassium at 10 mEq daily as well as her usual home medications listed in the history and physical. She will see Amparo Gallego who is her normal primary care provider at the end of this week coming up or she is to call us if she has return of fever or worsening of her discomfort in her scalp area in the interim.
== END 2016-09-14 12:50 | disposition home or self-care (01) | DRG 603 ==
LOC: ED 22:32 → MED SURG 09-11 04:43 → OBSVTOIN 09-11 07:55
PROVIDERS: ADMIT Family Medicine; ATTEND Family Medicine
DX: L03.811 Cellulitis of head [any part, except face] (principal); W22.09XA Striking against other stationary object, initial encounter; E10.65 Type 1 diabetes mellitus with hyperglycemia; Z79.4 Long term (current) use of insulin; R74.8 Abnormal levels of other serum enzymes; F41.9 Anxiety disorder, unspecified
CPT/HCPCS: 36000; 36415; 70450; 71010; 80053; 80074; 80202; 81002; 82150; 82805; 82947; 82962; 83605; 83690; 84132; 84703; 85025; 87040; 87070; 87086; 87430; 93041; 94760; 96360; 96361; 96374; 99285; J3370; J3480; A9270-GY

== ENCOUNTER 2017-04-04 13:48 | Emergency (ER) | payer OTHER ==
[2017-04-04 15:51] VITALS: PULSE 115; O2SAT 94
[2017-04-04] MEDS ORDERED: TORAdol 30 mg Injection IM ONE (15:51)
[2017-04-04] MEDS ORDERED: AMOXIL 500 MG PO ONE (15:51)
[2017-04-04] MEDS ORDERED: AMOXIL 500 MG ONE (15:57)
[2017-04-04] MEDS ORDERED: TORAdol 30 mg Injection ONE (15:57)
--- NOTE | 2017-04-04 15:57 | ERPHSYRPT ---
- History of Present Illness Time Seen by Provider: 04/04/17 15:49 Source: patient Exam Limitations: no limitations Patient Subjective Stated Complaint: sore throat for three days and fever yesterday Triage Nursing Assessment: to room per self. skin w/d, color normal, resp nonlabored. mouth moist. left neck tender to touch. states fever at home. Physician History: 32-year-old white female arrives with complaint of a sore throat for 3-4 days fever yesterday no vomiting. She states she has pain with swallowing. Past medical history includes anxiety and depression. Past surgical history includes D&C . Timing/Duration: day(s) (4 days) Severity: moderate Modifying Factors: Improves With: nothing Associated Symptoms: fever, other (sore throat), No nausea, No vomiting, No abdominal pain, No shortness of breath, No heartburn, No diaphoresis, No cough, No chills, No chest pain, No headaches, No loss of appetite, No malaise, No rash , No syncope, No seizure, No weakness Allergies/Adverse Reactions: No Known Drug Allergies Allergy (Verified 04/04/17 14:31) Home Medications: Alprazolam 1 mg [Xanax 1 mg] 1 mg PO HS 02/13/14 [History] Insulin Detemir [Levemir] 15 units SQ BID 07/21/16 [History] Insulin Lispro [Humalog] 12 unit SQ TIDAC 09/11/16 [History] Cyclobenzaprine HCl [Flexeril] 5 mg PO UD 04/04/17 [History] Loratadine 10 mg [Claritin 10 mg] 10 mg PO DAILY 04/04/17 [History] Hx Tetanus, Diphtheria Vaccination/Date Given: Yes (2015) Hx Influenza Vaccination/Date Given: No Hx Pneumococcal Vaccination/Date Given: No - Review of Systems Constitutional: Fever, No Chills, No Fatigue, No Lethargy, No Malaise, No Night Sweats, No Weakness, No Weight Loss Eyes: No Symptoms Ears, Nose, & Throat: Throat Pain, Painful Swallowing, No Ear Pain, No Ear Discharge, No Hearing Changes, No Tinnitus, No Nose Pain, No Nose Congestion, No Nose Discharge, No Sinus Drainage, No Epistaxis, No Mouth Pain, No Mouth Swelling, No Loose Teeth, No Throat Swelling, No Hoarse, No Snoring, No Stridor Respiratory: No Cough, No Dyspnea Cardiac: No Chest Pain, No Edema, No Syncope Abdominal/Gastrointestinal: No Abdominal Pain, No Nausea, No Vomiting, No Diarrhea Genitourinary Symptoms: No Dysuria Musculoskeletal: No Back Pain, No Neck Pain Skin: No Rash Neurological: No Dizziness, No Focal Weakness, No Sensory Changes Psychological: No Symptoms Endocrine: No Symptoms All Other Systems: Reviewed and Negative - Past Medical History Pertinent Past Medical History: Yes Neurological History: No Pertinent History, Peripheral Neuropathy ENT History: No Pertinent History Cardiac History: No Pertinent History Respiratory History: No Pertinent History Endocrine Medical History: Diabetes Type I Musculoskeletal History: No Pertinent History GI Medical History: No Pertinent History History: No Pertinent History Psycho-Social History: Anxiety, Depression Female Reproductive Disorders: No Pertinent History Other Medical History: was taken off of diabetic pump and put on sub q insulin coverage- 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, carpal tunnel - Past Surgical History Past Surgical History: Yes Neuro Surgical History: No Pertinent History Cardiac: No Pertinent History Respiratory: No Pertinent History Gastrointestinal: No Pertinent History Genitourinary: No Pertinent History Musculoskeletal: No Pertinent History Female Surgical History: Dilation & Curettage, Section Other Surgical History: cs x2 - Social History Smoking Status: Current some day smoker How long have you smoked: 10 Exposure to second hand smoke: Yes Alcohol Use: None Drug Use: none Patient Lives Alone: No Significant Family History: heart disease, diabetes - Female History Hx Last Menstrual Period: unsure Hx Now: No (on depo shot) - Nursing Vital Signs Nursing Vital Signs: Initial Vital Signs Temperature 98.6 F 04/04/17 14:24 Pulse Rate 121 H 04/04/17 14:24 Respiratory Rate 20 04/04/17 14:24 Blood Pressure 135/97 04/04/17 14:24 O2 Sat by Pulse Oximetry 99 04/04/17 14:24 Pain Scale Pain Intensity 8 - Physical Exam General Appearance: mild distress Eye Exam: PERRL/EOMI, eyes nml inspection Ears, Nose, Throat Exam: TMs normal, moist mucous membranes, pharyngeal erythema , No pharynx normal, No dry mucous membranes, No TM abnormal (R), No TM abnormal (L), No tonsillar exudate Neck Exam: normal inspection, non-tender, supple, full range of motion Respiratory Exam: normal breath sounds, lungs clear, No respiratory distress Cardiovascular Exam: regular rate/rhythm, normal heart sounds, normal peripheral pulses Gastrointestinal/Abdomen Exam: soft, normal bowel sounds, No tenderness, No mass Back Exam: normal inspection, normal range of motion, No CVA tenderness, No vertebral tenderness Extremity Exam: normal inspection, normal range of motion, pelvis stable Neurologic Exam: alert, oriented x 3, cooperative, normal mood/affect, nml cerebellar function, nml station & gait, sensation nml, No motor deficits Skin Exam: normal color, warm, dry, No rash SpO2 Interpretation: normal (94%) SpO2: 94 Oxygen Delivery: Room Air - Course Nursing assessment & vital signs reviewed: Yes Ordered Tests: Medication Summary Discontinued Medications Generic Name Dose Route Start Last Admin Trade Name Keatonq PRN Reason Stop Dose Admin Amoxicillin 500 mg 04/04/17 15:51 Amoxil 500 Mg PO 04/04/17 15:52 STAT ONE Ketorolac Tromethamine 60 mg 04/04/17 15:51 Toradol 30 Mg Injection IM 04/04/17 15:52 STAT ONE - Progress Progress: improved Progress Note: 04/04/17 15:54 32-year-old white female arrives with complaint of sore throat fever symptoms for 3 days throat is markedly erythematous. Will go ahead and place patient on amoxicillin 500 mg orally 3 times a day. Will give patient Toradol 60 mg IM. Will discharge patient she is to take plenty fluids Tylenol every 4 hours or Motrin every 6 hours as needed for pain or temperature greater than 100.5. Patient states she is on her Depo-Provera shots. - Departure Time of Disposition: 15:55 Departure Disposition: Home Clinical Impression: Throat pain Pharyngitis Qualifiers: Pharyngitis/tonsillitis etiology: unspecified etiology Qualified Code(s): J02.9 - Acute pharyngitis, unspecified Condition: Fair Critical Care Time: No Referrals: FROILAN FRANCO [Primary Care Provider] - Instructions: Sore Throat, Adult (DC) Additional Instructions: Return home. Plenty of fluids. Tylenol every 4 hours as needed for pain or temperature greater than 100.5. Motrin every 6 hours as needed for pain or temperature greater than 100.5. Amoxicillin 500 mg orally 3 times a day for 10 days. Follow-up with your family Dr. symptoms are worse, no better in 48 hours, or persist longer than one week. Return for acute distress or for severe symptoms. Prescriptions: Amoxicillin 500 mg PO TID #30 capsule
[2017-04-04 16:15] VITALS: BP 137/88
== END 2017-04-04 16:15 | disposition home or self-care (01) ==
LOC: ED 13:48
DX: J02.9 Acute pharyngitis, unspecified (principal); R07.0 Pain in throat
CPT/HCPCS: 96372; 99284; J1885; A9270-GY

== ENCOUNTER 2017-04-29 19:20 | Emergency (ER) | payer OTHER ==
[2017-04-29] MEDS ORDERED: TORAdol 30 mg Injection IV ONE (19:43)
[2017-04-29] MEDS ORDERED: Zofran 4 MG/2 ML VIAL IV ONE (19:43)
[2017-04-29] MEDS ORDERED: Sodium Chloride 0.9% 1000 ML 1,000 ML IV SCH (19:45)
[2017-04-29] MEDS ORDERED: Sodium Chloride 0.9% 1000 ML 1,000 ML ONE (19:52)
[2017-04-29] MEDS ORDERED: TORAdol 30 mg Injection ONE (19:52)
[2017-04-29] MEDS ORDERED: Zofran 4 MG/2 ML VIAL ONE (19:52)
--- NOTE | 2017-04-29 20:00 | ERPHSYRPT ---
- History of Present Illness Time Seen by Provider: 04/29/17 19:38 Source: patient Exam Limitations: no limitations Patient Subjective Stated Complaint: low back pain x2 days; increasingly worse today; minimally worse on right side; diarrhea x2 days; also states her blood sugars have been running high today. Triage Nursing Assessment: pt a&o x3; skin p, w, d; ambulated to room per self; no other distress noted at this time. Physician History: FOR THE PAST 2 DAYS PT HAS HAD LOW BACK PAIN SLIGHTLY WORSE ON THE RIGHT WITH A SUBJECTIVE FEVER, CHILLS AND DIARRHEA WITHOUT BLOOD. PT DENIES CHEST PAIN, SHORTNESS OF AIR, NAUSEA, VOMITING. Allergies/Adverse Reactions: No Known Drug Allergies Allergy (Verified 04/04/17 14:31) Home Medications: Alprazolam 1 mg [Xanax 1 mg] 1 mg PO HS 02/13/14 [History] Insulin Detemir [Levemir] 15 units SQ BID 07/21/16 [History] Insulin Lispro [Humalog] 12 unit SQ TIDAC 09/11/16 [History] Cyclobenzaprine HCl [Flexeril] 5 mg PO UD 04/04/17 [History] Loratadine 10 mg [Claritin 10 mg] 10 mg PO DAILY 04/04/17 [History] Dextroamphetamine/Amphetamine [Adderall 20 mg Tablet] 20 mg PO DAILY 04/29/17 [ History] Hx Tetanus, Diphtheria Vaccination/Date Given: Yes Hx Influenza Vaccination/Date Given: No Hx Pneumococcal Vaccination/Date Given: No Immunizations Up to Date: No - Review of Systems Constitutional: Fever, Chills Respiratory: No Dyspnea Cardiac: No Chest Pain Abdominal/Gastrointestinal: Diarrhea, No Abdominal Pain, No Vomiting Musculoskeletal: Back Pain All Other Systems: Reviewed and Negative - Past Medical History Pertinent Past Medical History: Yes Neurological History: No Pertinent History, Peripheral Neuropathy ENT History: No Pertinent History Cardiac History: No Pertinent History Respiratory History: No Pertinent History Endocrine Medical History: Diabetes Type I Musculoskeletal History: No Pertinent History GI Medical History: No Pertinent History History: No Pertinent History Psycho-Social History: Anxiety, Depression Female Reproductive Disorders: No Pertinent History Other Medical History: was taken off of diabetic pump and put on sub q insulin coverage- 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, carpal tunnel - Past Surgical History Past Surgical History: Yes Neuro Surgical History: No Pertinent History Cardiac: No Pertinent History Respiratory: No Pertinent History Gastrointestinal: No Pertinent History Genitourinary: No Pertinent History Musculoskeletal: No Pertinent History Female Surgical History: Dilation & Curettage, Section Other Surgical History: cs x2 - Social History Smoking Status: Current every day smoker How long have you smoked: 10 years Exposure to second hand smoke: No Alcohol Use: None Drug Use: none Patient Lives Alone: No Significant Family History: heart disease, diabetes - Female History Hx Last Menstrual Period: depo shot Hx Now: No - Nursing Vital Signs Nursing Vital Signs: Initial Vital Signs Temperature 97.7 F 04/29/17 19:32 Pulse Rate 104 H 04/29/17 19:32 Respiratory Rate 14 04/29/17 19:32 Blood Pressure 159/115 04/29/17 19:32 O2 Sat by Pulse Oximetry 99 04/29/17 19:32 Pain Scale Pain Intensity 6 - Physical Exam General Appearance: alert Eye Exam: other (RIGHT PUPIL 3MM DIAMETER AND LEFT PUPIL 5MM DIAMETER(PT STATES SHE CAN SEE OK OUT OF BOTH EYES).) Ears, Nose, Throat Exam: pharynx normal, moist mucous membranes Neck Exam: normal inspection Respiratory Exam: lungs clear Cardiovascular Exam: normal heart sounds Gastrointestinal/Abdomen Exam: soft, normal bowel sounds, No tenderness Back Exam: normal range of motion, other (MILD PARAVERTEBRAL LOWER LUMBAR TENDERNESS) Extremity Exam: normal inspection, No pedal edema Neurologic Exam: alert, cooperative Skin Exam: warm, dry SpO2 Interpretation: normal SpO2: 99 Oxygen Delivery: Room Air - Course Nursing assessment & vital signs reviewed: Yes Ordered Tests: Active Orders 24 hr Category Date Time Status IV Insertion STAT Care 04/29/17 19:43 Active AMYLASE Stat Lab 04/29/17 20:00 Completed CBC W DIFF Stat Lab 04/29/17 20:00 Completed CMP Stat Lab 04/29/17 20:00 Completed LIPASE Stat Lab 04/29/17 20:00 Completed MAGNESIUM Stat Lab 04/29/17 20:00 Completed UA W/ MICROSCOPIC Stat Lab 04/29/17 20:00 Completed Medication Summary Generic Name Dose Route Start Last Admin Trade Name Freq PRN Reason Stop Dose Admin Sodium Chloride 1,000 mls @ 100 mls/hr 04/29/17 19:45 04/29/17 20:02 Sodium Chloride 0.9% 1000 Ml IV 05/29/17 19:44 100 mls/hr .Q10H ELOY Administration Discontinued Medications Generic Name Dose Route Start Last Admin Trade Name Chaim PRN Reason Stop Dose Admin Ketorolac Tromethamine 30 mg 04/29/17 19:43 04/29/17 20:02 Toradol 30 Mg Injection IV 04/29/17 19:44 30 mg STAT ONE Administration Ketorolac Tromethamine Confirm 04/29/17 19:52 Toradol 30 Mg Injection Administered 04/29/17 19:53 Dose 30 mg .ROUTE .STK-Codarica ONE Ondansetron HCl 4 mg 04/29/17 19:43 04/29/17 20:02 Zofran 4 Mg/2 Ml Vial IV 04/29/17 19:44 4 mg STAT ONE Administration Ondansetron HCl Confirm 04/29/17 19:52 Zofran 4 Mg/2 Ml Vial Administered 04/29/17 19:53 Dose 4 mg .ROUTE .PúbliKo-Codarica ONE Lab/Rad Data: Laboratory Result Diagrams 04/29/17 20:00 04/29/17 20:00 Laboratory Results 04/29/17 04/29/17 04/29/17 Range/Units 20:00 20:00 20:00 WBC (4.0-10.5) K/mm3 RBC (4.1-5.4) M/mm3 Hgb (12.0-16.0) gm/dl Hct (35-47) % MCV (78-100) fl MCH (26-32) pg MCHC (32-36) g/dl RDW (11.5-14.0) % Plt Count (150-450) K/mm3 MPV (6-9.5) fl Gran % (36.0-66.0) % Lymphocytes % (24.0-44.0) % Monocytes % (0.0-12.0) % Eosinophils % (0.00-5.0) % Basophils % (0.0-0.4) % Basophils # (0-0.4) Sodium 136 L (137-145) mmol/L Potassium 3.8 (3.5-5.1) mmol/L Chloride 98 (98-107) mEq/L Carbon Dioxide 23 (22-30) mmol/L Anion Gap 19.0 H (5-15) MEQ/L BUN 10 (7-17) mg/dl Creatinine 0.51 L (0.52-1.04) mg/dl Estimated GFR > 60 ML/MIN Glucose 361 H (74-106) mg/dL Calcium 9.5 (8.4-10.2) mg/dL Magnesium 1.8 (1.6-2.3) mg/dL Total Bilirubin 0.20 (0.2-1.3) mg/d? AST 24 (14-36) U/L ALT 20 (0-35) U/L Alkaline Phosphatase 115 (38-126) U/L Serum Total Protein 6.9 (6.3-8.2) mg/dl Albumin 3.9 (3.5-5.0) g/dl Amylase 45 (30-110) U/L Lipase 35 (23-300) U/L Ur Collection Type CLEAN CATCH Urine Color COLORLESS (YELLOW) Urine Appearance CLEAR (CLEAR) Urine pH 6.0 (5-6) Ur Specific [place] 1.010 (1.005-1.025) Urine Protein 30 (Negative) Urine Ketones NEGATIVE (NEGATIVE) Urine Blood NEGATIVE (0-5) Rodney/ul Urine Nitrite NEGATIVE (NEGATIVE) Urine Bilirubin NEGATIVE (NEGATIVE) Urine Urobilinogen NORMAL (0-1) mg/dL Ur Leukocyte Esterase NEGATIVE (NEGATIVE) Ur Epithelial Cells RARE (FEW) /HPF Urine Bacteria RARE (NEGATIVE) /HPF Urine Culture Reflexed NO (NO) Urine Glucose 1000 (NEGATIVE) mg/dL Specimen Received 04/29/17 19404/29/17 Range/Units 20:00 WBC 7.1 (4.0-10.5) K/mm3 RBC 4.18 (4.1-5.4) M/mm3 Hgb 13.2 (12.0-16.0) gm/dl Hct 39.1 (35-47) % MCV 93.5 (78-100) fl MCH 31.6 (26-32) pg MCHC 33.8 (32-36) g/dl RDW 13.2 (11.5-14.0) % Plt Count 287 (150-450) K/mm3 MPV 10.1 H (6-9.5) fl Gran % 41.4 (36.0-66.0) % Lymphocytes % 49.2 H (24.0-44.0) % Monocytes % 7.7 (0.0-12.0) % Eosinophils % 1.3 (0.00-5.0) % Basophils % 0.4 (0.0-0.4) % Basophils # 0.03 (0-0.4) Sodium (137-145) mmol/L Potassium (3.5-5.1) mmol/L Chloride (98-107) mEq/L Carbon Dioxide (22-30) mmol/L Anion Gap (5-15) MEQ/L BUN (7-17) mg/dl Creatinine (0.52-1.04) mg/dl Estimated GFR ML/MIN Glucose (74-106) mg/dL Calcium (8.4-10.2) mg/dL Magnesium (1.6-2.3) mg/dL Total Bilirubin (0.2-1.3) mg/d? AST (14-36) U/L ALT (0-35) U/L Alkaline Phosphatase (38-126) U/L Serum Total Protein (6.3-8.2) mg/dl Albumin (3.5-5.0) g/dl Amylase (30-110) U/L Lipase (23-300) U/L Ur Collection Type Urine Color (YELLOW) Urine Appearance (CLEAR) Urine pH (5-6) Ur Specific [place] (1.005-1.025) Urine Protein (Negative) Urine Ketones (NEGATIVE) Urine Blood (0-5) Rodney/ul Urine Nitrite (NEGATIVE) Urine Bilirubin (NEGATIVE) Urine Urobilinogen (0-1) mg/dL Ur Leukocyte Esterase (NEGATIVE) Ur Epithelial Cells (FEW) /HPF Urine Bacteria (NEGATIVE) /HPF Urine Culture Reflexed (NO) Urine Glucose (NEGATIVE) mg/dL Specimen Received - Departure Time of Disposition: 20:57 Departure Disposition: Home Clinical Impression: LOW BACK PAIN, HYPERGLYCEMIA Condition: Stable Critical Care Time: No Referrals: FROILAN FRANCO [Primary Care Provider] - Instructions: Low Back Pain (DC) Additional Instructions: FOLLOW UP WITH PRIVATE DOCTOR TOMORROW. Prescriptions: Naproxen [Naprosyn] 500 mg PO [id number] PRN #20 tablet PRN Reason: Pain Cyclobenzaprine HCl [Flexeril] 10 mg PO TID #20 tablet
[2017-04-29 20:07] LABS: BASOPHIL % 0.4 % (0.0-0.4); Basophil (Absolute #) 0.03 (0-0.4); Eosinophil % 1.3 % (0.00-5.0); Eosinophil (Absolute #) 0.09 (0-0.5); Granulocyte Absolute (ANC) 2.95 (1.4-6.9); Granulocytes % 41.4 % (36.0-66.0); Hematocrit 39.1 % (35-47); Hemoglobin 13.2 gm/dl (12.0-16.0); Lymphocytes % 49.2 % (24.0-44.0); Mean Cell Volume 93.5 fl (78-100); Mean Corpuscular Hemoglobin 31.6 pg (26-32); Mean Corpuscular Hgb Concent. 33.8 g/dl (32-36); Mean Platelet Volume 10.1 fl (6-9.5); Monocyte (Absolute #) 0.55 (0.0-1.3); Monocytes % 7.7 % (0.0-12.0); Platelet Count 287 K/mm3 (150-450); Red Blood Count 4.18 M/mm3 (4.1-5.4); Red Cell Distribution Width 13.2 % (11.5-14.0); White Blood Count 7.1 K/mm3 (4.0-10.5)
[2017-04-29 20:29] LABS: ALBUMIN 3.9 g/dl (3.5-5.0); ALKALINE PHOSPHATASE 115 U/L (38-126); AMYLASE 45 U/L (30-110); BLOOD UREA NITROGEN 10 mg/dl (7-17); CHLORIDE 98 mEq/L (98-107); Calcium 9.5 mg/dL (8.4-10.2); Carbon Dioxide 23 mmol/L (22-30); Creatinine 1 0.51 mg/dl (0.52-1.04); Glucose 361 mg/dL (74-106); LIPASE 35 U/L (23-300); Potassium 3.8 mmol/L (3.5-5.1); SGOT/AST 24 U/L (14-36); SODIUM 136 mmol/L (137-145); Total Protein 6.9 mg/dl (6.3-8.2)
[2017-04-29 20:36] LABS: SGPT/ALT 20 U/L (0-35)
[2017-04-29 20:47] LABS: Appearance CLEAR (CLEAR); Bilirubin NEGATIVE (NEGATIVE); Blood NEGATIVE Ery/ul (0-5); Glucose 1000 mg/dL (NEGATIVE); Ketones NEGATIVE (NEGATIVE); Leukocyte Esterase NEGATIVE (NEGATIVE); Nitrite NEGATIVE (NEGATIVE); Protein,Urine Dip 30 (Negative); Urobilinogen NORMAL mg/dL (0-1)
[2017-04-29 20:48] LABS: Bacteria RARE /HPF (NEGATIVE); Epithelial Cells RARE /HPF (FEW)
[2017-04-29 20:50] VITALS: BP 144/82; PULSE 98
[2017-04-29] MEDS ORDERED: NovoLIN R SQ ONE (20:50)
[2017-04-29] MEDS ORDERED: NovoLIN R ONE (21:02)
[2017-04-29 21:17] VITALS: O2SAT 99
== END 2017-04-29 21:22 | disposition home or self-care (01) ==
LOC: ED 19:20
DX: M54.5 Low back pain (principal); E10.65 Type 1 diabetes mellitus with hyperglycemia; F41.8 Other specified anxiety disorders; F17.200 Nicotine dependence, unspecified, uncomplicated
CPT/HCPCS: 36000; 36415; 80053; 81000; 82150; 83690; 83735; 85025; 96360; 96374; 96375; 99284; J1885; J2405; A9270-GY

== ENCOUNTER 2018-07-18 19:12 | Emergency (ER) | payer OTHER ==
--- NOTE | 2018-07-18 19:25 | ERPHSYRPT ---
- History of Present Illness Time Seen by Provider: 07/18/18 19:22 Source: patient Exam Limitations: no limitations Physician History: pt had overuse injury to left wrist a few weeks ago then fell on it and had inital x-ray reported to her as sprain- now hurting more an has swelling ; tender at ulnar area; neuro vas intact although paresthesias reported Occurred: days ago Method of Injury: fell, twisted Quality: constant, aching, sharpness, throbbing Severity of Pain-Max: moderate Severity of Pain-Current: moderate Extremities Pain Location: wrist: left Modifying Factors: Improves With: movement Associated Symptoms: none Allergies/Adverse Reactions: No Known Drug Allergies Allergy (Verified 07/18/18 19:18) Home Medications: Alprazolam 1 mg [Xanax 1 mg] 1 mg PO HS 02/13/14 [History] Insulin Lispro [Humalog] 12 unit SQ TIDAC 09/11/16 [History] Loratadine 10 mg [Claritin 10 mg] 10 mg PO DAILY PRN 04/04/17 [History] Insulin Glargine,Hum.rec.anlog [Toujeo Solostar] 15 units SQ BID 07/18/18 [ History] Hx Tetanus, Diphtheria Vaccination/Date Given: Yes Hx Influenza Vaccination/Date Given: No Hx Pneumococcal Vaccination/Date Given: No - Review of Systems Constitutional: No Fever, No Chills Eyes: No Symptoms Ears, Nose, & Throat: No Symptoms Respiratory: No Cough, No Dyspnea Cardiac: No Chest Pain, No Edema, No Syncope Abdominal/Gastrointestinal: No Abdominal Pain, No Nausea, No Vomiting, No Diarrhea Genitourinary Symptoms: No Dysuria Musculoskeletal: Fall, Injury (left wrist), Joint Pain, Joint Swelling, No Back Pain, No Neck Pain Skin: No Rash Neurological: No Dizziness, No Focal Weakness, No Sensory Changes Psychological: No Symptoms Endocrine: No Symptoms All Other Systems: Reviewed and Negative - Past Medical History Pertinent Past Medical History: Yes Neurological History: No Pertinent History, Peripheral Neuropathy ENT History: No Pertinent History Cardiac History: No Pertinent History Respiratory History: No Pertinent History Endocrine Medical History: Diabetes Type I Musculoskeletal History: No Pertinent History GI Medical History: No Pertinent History History: No Pertinent History Psycho-Social History: Anxiety, Depression Female Reproductive Disorders: No Pertinent History Other Medical History: was taken off of diabetic pump and put on sub q insulin coverage- sees [facility] [facility]- 5 yrs ago, carpal tunnel - Past Surgical History Past Surgical History: Yes Neuro Surgical History: No Pertinent History Cardiac: No Pertinent History Respiratory: No Pertinent History Gastrointestinal: No Pertinent History Genitourinary: No Pertinent History Musculoskeletal: No Pertinent History Female Surgical History: Dilation & Curettage, Section Other Surgical History: cs x2 - Social History Smoking Status: Current every day smoker How long have you smoked: 10 years Exposure to second hand smoke: No Alcohol Use: None Drug Use: none Patient Lives Alone: No Significant Family History: heart disease, diabetes - Nursing Vital Signs Nursing Vital Signs: Initial Vital Signs Temperature 99.3 F 07/18/18 19:24 Pulse Rate 103 H 07/18/18 19:24 Respiratory Rate 18 07/18/18 19:24 Blood Pressure 137/87 07/18/18 19:24 O2 Sat by Pulse Oximetry 98 07/18/18 19:24 Pain Scale Pain Intensity 8 - Physical Exam General Appearance: alert Eyes, Ears, Nose, Throat Exam: moist mucous membranes Neck Exam: non-tender, supple Cardiovascular/Respiratory Exam: chest non-tender, normal breath sounds, regular rate/rhythm, no respiratory distress Abdominal Exam: non-tender, No guarding Back Exam: normal inspection, No vertebral tenderness Shoulder Exam: normal inspection, non-tender, no evidence of injury, normal ROM Elbow/Forearm Exam: normal inspection, non-tender, no evidence of injury, normal ROM Wrist Exam: bone tenderness (left distal ulna at wrist), swelling Hand Exam: normal inspection, non-tender, no evidence of injury, normal ROM DTR - Upper Extremity Exam: bicep (R): 2+, bicep (L): 2+, tricep (R): 2+, tricep (L): 2+ Neuro/Tendon Exam: normal sensation, normal motor functions, normal tendon functions Mental Status Exam: alert, oriented x 3, cooperative Skin Exam: normal color, warm, dry - Course Nursing assessment & vital signs reviewed: Yes - Radiology Exams Left Wrist X-ray Interpretation: Reviewed by me, Non-displaced Fracture Ordered Tests: Active Orders 24 hr Category Date Time Status Splint STAT Care 07/18/18 19:27 Active WRIST (MIN 3 VIEWS) Stat Exams 07/18/18 19:26 Taken Medication Summary Discontinued Medications Generic Name Dose Route Start Last Admin Trade Name Chaim PRN Reason Stop Dose Admin Ketorolac Tromethamine 60 mg 07/18/18 19:27 07/18/18 19:35 Toradol 30 Mg Injection IM 07/18/18 19:28 60 mg STAT ONE Administration Ketorolac Tromethamine Confirm 07/18/18 19:34 Toradol 30 Mg Injection Administered 07/18/18 19:35 Dose 60 mg .ROUTE .STK-MED ONE - Progress Progress: improved, re-examined Counseled pt/family regarding: diagnosis, need for follow-up, rad results - Departure Departure Disposition: Home Clinical Impression: occult fracture left wrist vs sprain Condition: Good Critical Care Time: No Referrals: FROILAN FRANCO [Primary Care Provider] - Instructions: Wrist Sprain, Wrist Fracture Additional Instructions: followup with your DrMarietta for ortho referral and further evaluation; use splint meantime and return if any further concerns meantime; the final x-ray report will be thursday , but we are treating as if if it could be a fracture - hairline or may just be a bad sprain and require MRI later; return meantime if any concerns;
[2018-07-18 19:33] VITALS: BP 137/87; PULSE 103; O2SAT 98
[2018-07-18] MEDS ORDERED: TORAdol 30 mg Injection ONE (19:34)
[2018-07-18] MEDS: TORAdol 30 mg Injection IM ONE (19:35)
--- NOTE | 2018-07-18 22:15 | XRAY ---
Indication: Chronic pain. Comparison: June 09, 2018. 3 views of the left wrist unchanged again with small distal radius bony exostosis. No new/acute findings.
== END 2018-07-18 20:50 | disposition home or self-care (01) ==
LOC: ED 19:12
DX: S62.102A Fracture of unspecified carpal bone, left wrist, initial encounter for closed fracture (principal); W19.XXXA Unspecified fall, initial encounter; X50.1XXA Overexertion from prolonged static or awkward postures, initial encounter; G62.9 Polyneuropathy, unspecified; E10.9 Type 1 diabetes mellitus without complications; F41.8 Other specified anxiety disorders
CPT/HCPCS: 73110; 96372; 99284; J1885; L3908

== ENCOUNTER 2018-07-27 16:00 | Emergency (ER) | payer OTHER ==
[2018-07-27 16:09] VITALS: O2SAT 98
--- NOTE | 2018-07-27 16:27 | ERPHSYRPT ---
- History of Present Illness Time Seen by Provider: 07/27/18 16:22 Source: patient Exam Limitations: no limitations Patient Subjective Stated Complaint: PT states "I was here a week ago and had my left wrist x rayed and there is a fracture. I called my doctor and they made an appointment for bone and joint on the 19 of August." Triage Nursing Assessment: Pt presented alert and oriented X 3, skin pwd. Pt ambulates with an upright steady gait, able to speak in clear full sentences. Pt in no apparent respiratory distress. Pt has velcro splint on her left wrist. Physician History: 33-year-old white female arrives with complaint of pain in her left wrist symptoms since June 09, 2018 patient states she had fallen at that time in actually had an x-ray which was initially read as negative. She states she's been having pain in her left wrist worse with movement she was seen again on July 18, 2018 she had an x-ray which was initially read as a possible hairline fracture however this was reread by the radiologist on 2618 x-ray was read as a small distal radius exostosis of the left wrist no other abnormalities were noted. Patient states that she followed up with her family doctor and she had been set up with an appointment for August 18 with [facility] she states that she continues to hurt in her left wrist. Past medical history includes peripheral neuropathy, diabetes type 1, anxiety, depression Past surgical history includes D&C and Occurred: other (6 weeks ago) Method of Injury: fell Quality: constant Severity of Pain-Max: mild Severity of Pain-Current: mild Extremities Pain Location: wrist: left Associated Symptoms: none Allergies/Adverse Reactions: No Known Drug Allergies Allergy (Verified 07/18/18 19:18) Home Medications: Alprazolam 1 mg [Xanax 1 mg] 1 mg PO HS 02/13/14 [History] Insulin Lispro [Humalog] 12 unit SQ TIDAC 09/11/16 [History] Loratadine 10 mg [Claritin 10 mg] 10 mg PO DAILY PRN 04/04/17 [History] Insulin Glargine,Hum.rec.anlog [Touleena Solostar] 15 units SQ BID 07/18/18 [ History] Hx Tetanus, Diphtheria Vaccination/Date Given: Yes Hx Influenza Vaccination/Date Given: No Hx Pneumococcal Vaccination/Date Given: No Immunizations Up to Date: Yes - Review of Systems Constitutional: No Fever, No Chills Eyes: No Symptoms Ears, Nose, & Throat: No Symptoms Respiratory: No Cough, No Dyspnea Cardiac: No Chest Pain, No Edema, No Syncope Abdominal/Gastrointestinal: No Abdominal Pain, No Nausea, No Vomiting, No Diarrhea Genitourinary Symptoms: No Dysuria Musculoskeletal: Other (left wrist pain) Skin: No Rash Neurological: No Dizziness, No Focal Weakness, No Sensory Changes Psychological: No Symptoms Endocrine: No Symptoms All Other Systems: Reviewed and Negative - Past Medical History Pertinent Past Medical History: Yes Neurological History: No Pertinent History, Peripheral Neuropathy ENT History: No Pertinent History Cardiac History: No Pertinent History Respiratory History: No Pertinent History Endocrine Medical History: Diabetes Type I Musculoskeletal History: No Pertinent History GI Medical History: No Pertinent History History: No Pertinent History Psycho-Social History: Anxiety, Depression Female Reproductive Disorders: No Pertinent History Other Medical History: was taken off of diabetic pump and put on sub q insulin coverage- 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, carpal tunnel - Past Surgical History Past Surgical History: Yes Neuro Surgical History: No Pertinent History Cardiac: No Pertinent History Respiratory: No Pertinent History Gastrointestinal: No Pertinent History Genitourinary: No Pertinent History Musculoskeletal: No Pertinent History Female Surgical History: Dilation & Curettage, Section Other Surgical History: cs x2 - Social History Smoking Status: Current every day smoker How long have you smoked: years Exposure to second hand smoke: Yes Alcohol Use: None Drug Use: none Patient Lives Alone: No Significant Family History: heart disease, diabetes - Female History Hx Last Menstrual Period: depo Hx Now: No - Nursing Vital Signs Nursing Vital Signs: Initial Vital Signs Temperature 99.0 F 07/27/18 16:05 Respiratory Rate 18 07/27/18 16:05 Blood Pressure 91/69 07/27/18 16:05 O2 Sat by Pulse Oximetry 98 07/27/18 16:05 Pain Scale Pain Intensity 10 - Physical Exam General Appearance: alert Eyes, Ears, Nose, Throat Exam: moist mucous membranes Neck Exam: non-tender, supple Cardiovascular/Respiratory Exam: chest non-tender, normal breath sounds, regular rate/rhythm, no respiratory distress Abdominal Exam: non-tender, No guarding Back Exam: normal inspection, No vertebral tenderness Shoulder Exam: normal inspection, non-tender, no evidence of injury, normal ROM Elbow/Forearm Exam: normal inspection, non-tender, no evidence of injury, normal ROM Wrist Exam: No normal inspection (left wrist tender with palpation over distal radius, decreased range of motion left wrist secondary to pain) Neuro/Tendon Exam: normal sensation, normal motor functions Mental Status Exam: alert, oriented x 3, cooperative Skin Exam: normal color, warm, dry SpO2 Interpretation: normal (98%) SpO2: 98 - Course Nursing assessment & vital signs reviewed: Yes - Progress Progress: improved Progress Note: 07/27/18 16:26 33-year-old white female with a complaint of left wrist pain since June 09, 2018 she had this reexamined on July 18, 2018 and had been told that there was possibly a hairline fracture in her distal radius and that the x-rays would be reread by the radiologist patient had the x-rays read by the radiologist x-ray of the left wrist is remarkable for small distal radius exostosis of the left wrist there were no other abnormalities. Patient apparently had been seen by her family doctor who arranged for her to have an appointment on August 18 with [facility]. She continues to complain of pain in her left wrist. I have offered to obtain a repeat x-ray of the patient's left wrist she really does not want to do this right now she does state that she will plan to followup with [facility]. Will go ahead and write for Naprosyn for pain. 07/27/18 16:27 patient has a Velcro wristlet which she will be encouraged to use on the left wrist. - Departure Departure Disposition: Home Clinical Impression: Left wrist pain Condition: Fair Critical Care Time: No Referrals: FROILAN FRANCO [Primary Care Provider] - Instructions: Wrist Pain Additional Instructions: Return home. Ice and elevate left wrist 24-[address] [facility]opedics bone and joint clinic tomorrow morning 8 AM. Naprosyn 500 mg orally twice a day as needed for pain. Use your wristlet on your left wrist. Prescriptions: Naproxen 500 mg [Naprosyn 500 MG] 500 mg PO BIDPRN PRN #10 tablet PRN Reason: Pain
[2018-07-27 16:37] VITALS: BP 106/48; PULSE 88
== END 2018-07-27 16:38 | disposition home or self-care (01) ==
LOC: ED 16:00
DX: M25.532 Pain in left wrist (principal); G62.9 Polyneuropathy, unspecified; E10.9 Type 1 diabetes mellitus without complications
CPT/HCPCS: 99283

== ENCOUNTER 2018-11-29 18:34 | Emergency (ER) | payer OTHER ==
--- NOTE | 2018-11-29 18:43 | ERPHSYRPT ---
- History of Present Illness Time Seen by Provider: 11/29/18 18:43 Source: patient Exam Limitations: no limitations Physician History: 33 y/o white female presents with fx front upper tooth today. has an appt to see dentist in a month. Timing/Duration: abrupt onset, this afternoon Severity: moderate ENT Location: dental Prearrival Treatment: no prearrival treatment Associated Symptoms: tooth pain Allergies/Adverse Reactions: No Known Drug Allergies Allergy (Verified 11/29/18 18:51) Home Medications: Alprazolam 1 mg [Xanax 1 mg] 1 mg PO HS 02/13/14 [History] Insulin Lispro [Humalog] 12 unit SQ TIDAC 09/11/16 [History] Loratadine 10 mg [Claritin 10 mg] 10 mg PO DAILY PRN 04/04/17 [History] Insulin Glargine,Hum.rec.anlog [Toujeo Solostar] 15 units SQ BID 07/18/18 [ History] Hx Tetanus, Diphtheria Vaccination/Date Given: Yes Hx Influenza Vaccination/Date Given: No Hx Pneumococcal Vaccination/Date Given: No - Review of Systems Constitutional: No Symptoms Eyes: No Symptoms Ears, Nose, & Throat: Other (dental pain) Respiratory: No Symptoms Cardiac: No Symptoms Abdominal/Gastrointestinal: No Symptoms Genitourinary Symptoms: No Symptoms Musculoskeletal: No Symptoms Skin: No Symptoms Neurological: No Symptoms Psychological: No Symptoms Endocrine: No Symptoms Hematologic/Lymphatic: No Symptoms Immunological/Allergic: No Symptoms All Other Systems: Reviewed and Negative - Past Medical History Pertinent Past Medical History: Yes Neurological History: No Pertinent History, Peripheral Neuropathy ENT History: No Pertinent History Cardiac History: No Pertinent History Respiratory History: No Pertinent History Endocrine Medical History: Diabetes Type I Musculoskeletal History: No Pertinent History GI Medical History: No Pertinent History History: No Pertinent History Psycho-Social History: Anxiety, Depression Female Reproductive Disorders: No Pertinent History Other Medical History: was taken off of diabetic pump and put on sub q insulin coverage- 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, carpal tunnel - Past Surgical History Past Surgical History: Yes Neuro Surgical History: No Pertinent History Cardiac: No Pertinent History Respiratory: No Pertinent History Gastrointestinal: No Pertinent History Genitourinary: No Pertinent History Musculoskeletal: No Pertinent History Female Surgical History: Dilation & Curettage, Section Other Surgical History: cs x2 - Social History Smoking Status: Current every day smoker How long have you smoked: years Exposure to second hand smoke: Yes Alcohol Use: None Drug Use: none Patient Lives Alone: No Significant Family History: heart disease, diabetes - Nursing Vital Signs Nursing Vital Signs: Initial Vital Signs Temperature 98.6 F 11/29/18 18:44 Pulse Rate 119 H 11/29/18 18:44 Respiratory Rate 20 11/29/18 18:44 Blood Pressure 164/92 11/29/18 18:44 O2 Sat by Pulse Oximetry 98 11/29/18 18:44 Pain Scale Pain Intensity 9 - Physical Exam General Appearance: no apparent distress, alert Eye Exam: bilateral eye: normal inspection, PERRL, EOMI Ear Exam: bilateral ear: auricle normal Nasal Exam: normal inspection Throat Exam: dental tenderness (generalized poor dentition) Neck Exam: normal inspection, non-tender, supple, full range of motion, trachea midline Cardiovascular/Respiratory Exam: chest non-tender Abdominal Exam: non-tender Neurologic Exam: alert, oriented x 3, cooperative, tube wrapper II-XII nml as tested Skin Exam: normal color, warm, dry SpO2 Interpretation: normal O2 Delivery: Room Air - Course Nursing assessment & vital signs reviewed: Yes - Progress Progress: unchanged Counseled pt/family regarding: diagnosis, need for follow-up - Departure Departure Disposition: Home Clinical Impression: Pain, dental Condition: Stable Critical Care Time: No Referrals: FROILAN FRANCO [Primary Care Provider] - Additional Instructions: follow up with dentist for definitive care. use tylenol and ibuprofen for pain Prescriptions: Amoxicillin 500 mg Cap [Amoxil 500 mg] 500 mg PO TID #30 capsule
[2018-11-29 19:30] VITALS: BP 149/93; PULSE 114; O2SAT 97
[2018-11-29] MEDS ORDERED: AMOXIL 500 MG PO ONE (20:02)
[2018-11-29] MEDS ORDERED: PERCOCET TABLET 5/325MG PO STA (20:03)
[2018-11-29] MEDS ORDERED: PERCOCET TABLET 5/325MG ONE (20:19)
[2018-11-29] MEDS ORDERED: AMOXIL 500 MG ONE (20:20)
== END 2018-11-29 20:41 | disposition home or self-care (01) ==
LOC: ED 18:34
DX: K08.89 Other specified disorders of teeth and supporting structures (principal)
CPT/HCPCS: 99283; A9270-GY

== ENCOUNTER 2018-12-28 18:37 | Emergency (ER) | payer OTHER ==
--- NOTE | 2018-12-28 18:45 | ERPHSYRPT ---
- History of Present Illness Time Seen by Provider: 12/28/18 18:44 Source: patient, family Exam Limitations: no limitations Physician History: 33 y/o white female presents after slipping and falling backwards hitting head onto car door frame. no loc but vision changed briefly. has severe headache and nausea. Occurred: just prior to arrival Severity: mild Head Injury Location: occipital Method of Injury: fell (slipped) Loss of Consciousness: no loss of consciousness, dazed Associated Symptoms: nausea, headaches Allergies/Adverse Reactions: No Known Drug Allergies Allergy (Verified 12/28/18 18:46) Home Medications: Alprazolam 1 mg [Xanax 1 mg] 1 mg PO HS 02/13/14 [History] Insulin Lispro [Humalog] 12 unit SQ TIDAC 09/11/16 [History] Insulin Glargine,Hum.rec.anlog [Toujeo Solostar] 15 units SQ BID 07/18/18 [ History] Cephalexin Mh 500 mg [Keflex 500 mg] 500 mg PO TID 12/28/18 [History] Hx Tetanus, Diphtheria Vaccination/Date Given: Yes Hx Influenza Vaccination/Date Given: No Hx Pneumococcal Vaccination/Date Given: No - Review of Systems Constitutional: No Symptoms Eyes: No Symptoms, Vision Changes (after hit head, brief and now resolved) Ears, Nose, & Throat: No Symptoms Respiratory: No Symptoms Cardiac: No Symptoms Abdominal/Gastrointestinal: No Symptoms Genitourinary Symptoms: No Symptoms Musculoskeletal: No Symptoms Skin: No Symptoms Neurological: Headache Psychological: No Symptoms Endocrine: No Symptoms Hematologic/Lymphatic: No Symptoms Immunological/Allergic: No Symptoms All Other Systems: Reviewed and Negative - Past Medical History Pertinent Past Medical History: Yes Neurological History: No Pertinent History, Peripheral Neuropathy ENT History: No Pertinent History Cardiac History: No Pertinent History Respiratory History: No Pertinent History Endocrine Medical History: Diabetes Type I Musculoskeletal History: No Pertinent History GI Medical History: No Pertinent History History: No Pertinent History Psycho-Social History: Anxiety, Depression Female Reproductive Disorders: No Pertinent History Other Medical History: was taken off of diabetic pump and put on sub q insulin coverage- sees [employer] [facility]- 5 yrs ago, carpal tunnel - Past Surgical History Past Surgical History: Yes Neuro Surgical History: No Pertinent History Cardiac: No Pertinent History Respiratory: No Pertinent History Gastrointestinal: No Pertinent History Genitourinary: No Pertinent History Musculoskeletal: No Pertinent History Female Surgical History: Dilation & Curettage, Section Other Surgical History: cs x2 - Social History Smoking Status: Current every day smoker How long have you smoked: years Exposure to second hand smoke: Yes Alcohol Use: None Drug Use: none Patient Lives Alone: No Significant Family History: heart disease, diabetes - Nursing Vital Signs Nursing Vital Signs: Initial Vital Signs Temperature 97.9 F 12/28/18 18:41 Pulse Rate 105 H 12/28/18 18:41 Respiratory Rate 16 12/28/18 18:41 Blood Pressure 197/109 12/28/18 18:41 O2 Sat by Pulse Oximetry 99 12/28/18 18:41 Pain Scale Pain Intensity 9 - Joann Coma Score Best Eye Response ([place]): (4) open spontaneously Best Verbal Response ([place]): (5) oriented Best Motor Response ([place]): (6) obeys commands [place] Total: 15 - Physical Exam General Appearance: no apparent distress, alert, anxiety Head Injury: no evidence of injury Eye Exam: bilateral eye: normal inspection, PERRL, EOMI ENT Exam: airway nml, nml ext.inspection Neck Exam: supple, trachea midline, full range of motion, normal alignment, normal inspection Cardiovascular/Respiratory Exam: chest non-tender Gastrointestinal/Abdominal Exam: non tender Pelvic Exam: not done Rectal Exam: not done Back Exam: normal inspection, normal range of motion, No CVA tenderness, No vertebral tenderness Extremity Exam: non-tender, normal range of motion, normal inspection Mental Status Exam: alert, oriented x 3, cooperative watch adjuster Exam: normal hearing, normal speech, PERRL, tongue midline Coordination/Gait Exam: normal finger to nose, normal gait, normal cerebellar function Motor/Sensory Exam: no motor deficit, no sensory deficit Skin Exam: normal color, warm, dry Lymphatic Exam: No adenopathy SpO2 Interpretation: normal O2 Delivery: Room Air Ordered Tests: Active Orders 24 hr Category Date Time Status HEAD WITHOUT CONTRAST [CT] Stat Exams 12/28/18 18:45 Taken - Progress Progress: unchanged Progress Note: 12/28/18 19:50 ct head-negtive for acute process Counseled pt/family regarding: diagnosis, need for follow-up, rad results - Departure Departure Disposition: Home Clinical Impression: Head injury Condition: Stable Critical Care Time: No Referrals: FROILAN FRANCO [Primary Care Provider] - Additional Instructions: ice pack to area 3 times daily for 2 days. tylenol and ibuprofen for pain. follow up with primary doctor for further management
[2018-12-28] MEDS ORDERED: Norco 10/325 MG Tablet ONE (19:52)
[2018-12-28] MEDS: Norco 10/325 MG Tablet PO ONE (19:53)
[2018-12-28 20:20] VITALS: BP 182/99; PULSE 97; O2SAT 97
--- NOTE | 2018-12-29 08:37 | XRAY ---
Indication: Headache and dizziness following left posterior head injury. Multiple contiguous axial images obtained through the head without contrast. Comparison: September 11, 2016. Normal appearing brain parenchyma, ventricles, and bony calvarium. Visualized paranasal sinuses and mastoid air cells are clear. Impression: Normal CT head without contrast exam. CT DI 43.40
== END 2018-12-28 20:19 | disposition home or self-care (01) ==
LOC: ED 18:37
DX: S09.90XA Unspecified injury of head, initial encounter (principal); W01.198A Fall on same level from slipping, tripping and stumbling with subsequent striking against other object, initial encounter; Y93.9 Activity, unspecified; Y92.89 Other specified places as the place of occurrence of the external cause
CPT/HCPCS: 70450; 99283; A9270-GY

== ENCOUNTER 2019-03-07 16:46 | Inpatient (IN) | payer OTHER ==
[2019-03-07] MEDS ORDERED: Sodium Chloride 0.9% 1000 ML 1,000 ML IV STA ×2 (17:07→18:15)
[2019-03-07] MEDS ORDERED: Zofran 4 MG/2 ML VIAL IV ONE (17:08)
--- NOTE | 2019-03-07 17:22 | ERPHSYRPT ---
- History of Present Illness Time Seen by Provider: 03/07/19 17:10 Historian: patient Exam Limitations: clinical condition Patient Subjective Stated Complaint: Pt states that she has been vomiting for a week, unable to keep food or liquids down, states that she has been checking her sugars and they have been high, went to [facility] 2 nights ago and they told her that nothing was wrong Triage Nursing Assessment: Pt brought to the ER by her niece, Accu check to high to register, hypertensive, bowel sounds heard in all 4 quadrants, rates abdominal pain 12/02 Physician History: 34 y/o diabetic white female has been vomiting intermittently for a week. worse last 2 days. unable to hold down fluids. pt has had associated diarrhea and malaise. denies sore throat, denies cough, denies earaches, denies chest congestion. seen at [facility] yesterday with an elevated blood glucose in the 300s. Timing/Duration: week(s) (1) Quality: cramping Abdominal Pain Onset Location: generalized abdomen Pain Radiation: no radiation Severity of Pain-Max: mild Severity of Pain-Current: mild Modifying Factors: Improves With: nothing Associated Symptoms: diarrhea, loss of appetite, nausea, vomiting, weakness Previous symptoms: same symptoms as today Allergies/Adverse Reactions: No Known Drug Allergies Allergy (Verified 03/07/19 17:06) Home Medications: Alprazolam 1 mg [Xanax 1 mg] 1 mg PO HS 02/13/14 [History] Insulin Glargine,Hum.rec.anlog [Touleena Solostar] 15 units SQ BID 07/18/18 [ History] Insulin Aspart (Niacinamide) [Fiasp 100 Unit/ml Flextouch] 12 units SQ TIDAC [History] Hx Tetanus, Diphtheria Vaccination/Date Given: Yes Hx Influenza Vaccination/Date Given: No Hx Pneumococcal Vaccination/Date Given: No - Review of Systems Constitutional: Lethargy, Weakness Eyes: No Symptoms Ears, Nose, & Throat: No Symptoms Respiratory: No Symptoms Cardiac: No Symptoms Abdominal/Gastrointestinal: Nausea, Vomiting, Diarrhea Genitourinary Symptoms: No Symptoms Musculoskeletal: No Symptoms Skin: No Symptoms Neurological: No Symptoms Psychological: No Symptoms Endocrine: No Symptoms Hematologic/Lymphatic: No Symptoms Immunological/Allergic: No Symptoms All Other Systems: Reviewed and Negative - Past Medical History Pertinent Past Medical History: Yes Neurological History: No Pertinent History, Peripheral Neuropathy ENT History: No Pertinent History Cardiac History: No Pertinent History Respiratory History: No Pertinent History Endocrine Medical History: Diabetes Type I Musculoskeletal History: No Pertinent History GI Medical History: No Pertinent History History: No Pertinent History Psycho-Social History: Anxiety, Depression Female Reproductive Disorders: No Pertinent History Other Medical History: was taken off of diabetic pump and put on sub q insulin coverage- 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, carpal tunnel - Past Surgical History Past Surgical History: Yes Neuro Surgical History: No Pertinent History Cardiac: No Pertinent History Respiratory: No Pertinent History Gastrointestinal: No Pertinent History Genitourinary: No Pertinent History Musculoskeletal: No Pertinent History Female Surgical History: Dilation & Curettage, Section Other Surgical History: cs x2 - Social History Smoking Status: Current every day smoker How long have you smoked: years Exposure to second hand smoke: Yes Alcohol Use: None Drug Use: none Patient Lives Alone: No Significant Family History: heart disease, diabetes - Female History Hx Now: No (depo) - Nursing Vital Signs Nursing Vital Signs: Initial Vital Signs Temperature 98.6 F 03/07/19 16:54 Pulse Rate 105 H 03/07/19 16:54 Blood Pressure 179/93 03/07/19 16:54 O2 Sat by Pulse Oximetry 100 03/07/19 16:54 Pain Scale Pain Intensity 9 - Physical Exam General Appearance: no apparent distress, lethargy (mild) Eye Exam: PERRL/EOMI, eyes nml inspection Ears, Nose, Throat Exam: normal ENT inspection, dry mucous membranes Neck Exam: normal inspection, non-tender, supple, full range of motion Respiratory Exam: normal breath sounds, lungs clear, airway intact, No chest tenderness, No respiratory distress Cardiovascular Exam: regular rate/rhythm, normal heart sounds, normal peripheral pulses Gastrointestinal/Abdomen Exam: soft, normal bowel sounds, No tenderness Rectal Exam: not done Back Exam: normal inspection, normal range of motion, No CVA tenderness, No vertebral tenderness Extremity Exam: normal inspection, normal range of motion, pelvis stable Neurologic Exam: alert, oriented x 3, cooperative, supervisor sewer maintenance II-XII nml as tested Skin Exam: normal color, warm, dry Lymphatic Exam: No adenopathy SpO2 Interpretation: normal SpO2: 100 O2 Delivery: Room Air Ordered Tests: Active Orders 24 hr Category Date Time Status IV Insertion STAT Care 03/07/19 17:07 Active Pulse Oximetry (ED) STAT Care 03/07/19 17:07 Active CBC W DIFF Stat Lab 03/07/19 17:50 Completed CMP Stat Lab 03/07/19 17:50 Completed HCG,QUALITATIVE URINE Stat Lab 03/07/19 17:09 Ordered Lactic Acid Urgent Lab 03/07/19 17:49 Results UA W/RFX UR CULTURE Stat Lab 03/07/19 17:09 Ordered Transfer Order Routine Transfer 03/07/19 Ordered Medication Summary Generic Name Dose Route Start Last Admin Trade Name Freq PRN Reason Stop Dose Admin Sodium Chloride 1,000 mls @ 999 mls/hr 03/07/19 18:15 03/07/19 18:48 Sodium Chloride 0.9% 1000 Ml IV 03/07/19 19:15 999 mls/hr .Q1H1M STA Administration Discontinued Medications Generic Name Dose Route Start Last Admin Trade Name Freq PRN Reason Stop Dose Admin Sodium Chloride 1,000 mls @ 999 mls/hr 03/07/19 17:07 03/07/19 18:52 Sodium Chloride 0.9% 1000 Ml IV 03/07/19 18:07 Infused .Q1H1M STA Infusion Sodium Chloride Confirm 03/07/19 17:35 Sodium Chloride 0.9% 1000 Ml Administered 03/07/19 17:36 Dose 1,000 mls @ ud .ROUTE .STK-MED ONE Sodium Chloride Confirm 03/07/19 18:47 Sodium Chloride 0.9% 1000 Ml Administered 03/07/19 18:48 Dose 1,000 mls @ ud .ROUTE .STK-MED ONE Insulin Human Regular 18 unit 03/07/19 18:33 Novolin R IV 03/07/19 18:34 STAT ONE Ondansetron HCl 4 mg 03/07/19 17:08 03/07/19 17:37 Zofran 4 Mg/2 Ml Vial IV 03/07/19 17:09 4 mg STAT ONE Administration Ondansetron HCl Confirm 03/07/19 17:35 Zofran 4 Mg/2 Ml Vial Administered 03/07/19 17:36 Dose 4 mg .ROUTE .STK-MED ONE Lab/Rad Data: Laboratory Result Diagrams 03/07/19 17:50 03/07/19 17:50 Laboratory Results 03/07/19 03/07/19 03/07/19 Range/Units 17:50 17:50 17:49 WBC 7.2 (4.0-10.5) K/mm3 RBC 4.32 (4.1-5.4) M/mm3 Hgb 14.3 (12.0-16.0) gm/dl Hct 42.1 (35-47) % MCV 97.5 (78-100) fl MCH 33.1 H (26-32) pg MCHC 34.0 (32-36) g/dl RDW 12.7 (11.5-14.0) % Plt Count 227 (150-450) K/mm3 MPV 10.2 (7.5-11.0) fl Gran % 68.1 H (36.0-66.0) % Eos # (Auto) 0.06 (0-0.5) Absolute Lymphs (auto) 1.94 (1.0-4.6) Absolute Monos (auto) 0.28 (0.0-1.3) Lymphocytes % 26.9 (24.0-44.0) % Monocytes % 3.9 (0.0-12.0) % Eosinophils % 0.8 (0.00-5.0) % Basophils % 0.3 (0.0-0.4) % Absolute Granulocytes 4.92 (1.4-6.9) Basophils # 0.02 (0-0.4) Sodium 132 L (137-145) mmol/L Potassium 4.8 (3.5-5.1) mmol/L Chloride 92 L (98-107) mmol/L Carbon Dioxide 18 L (22-30) mmol/L Anion Gap 27.5 H (5-15) MEQ/L BUN 14 (7-17) mg/dL Creatinine 0.67 (0.52-1.04) mg/dL Estimated GFR > 60.0 ML/MIN Glucose 628 H* (74-106) mg/dL Lactic Acid 2.0 (0.4-2.0) Calcium 9.5 (8.4-10.2) mg/dL Total Bilirubin 1.00 (0.2-1.3) mg/dL AST 30 (14-36) U/L ALT 13 (0-35) U/L Alkaline Phosphatase 134 H (38-126) U/L Serum Total Protein 7.1 (6.3-8.2) g/dL Albumin 3.9 (3.5-5.0) g/dL - Progress Progress: improved Progress Note: 03/07/19 18:[address] figueroa. will admit telemetry. dx dka. iv hydration antiemetics and insulin Discussed with : Tra Counseled pt/family regarding: lab results, diagnosis - Departure Departure Disposition: In-patient Admission Clinical Impression: DKA (diabetic ketoacidoses) Condition: Fair Critical Care Time: Yes Critical Care Time(excluding separately billable procedures): Critical 30-74 mins Referrals: FROILAN FRANCO [Primary Care Provider] -
[2019-03-07] MEDS ORDERED: Zofran 4 MG/2 ML VIAL ONE (17:35)
[2019-03-07] MEDS ORDERED: Sodium Chloride 0.9% 1000 ML 1,000 ML ONE ×2 (17:35→18:47)
[2019-03-07 17:55] LABS: Absolute Neutrophil Ct (ANC) 4.92 (1.4-6.9); BASOPHIL % 0.3 % (0.0-0.4); Basophil (Absolute #) 0.02 (0-0.4); Eosinophil % 0.8 % (0.00-5.0); Eosinophil (Absolute #) 0.06 (0-0.5); Hematocrit 42.1 % (35-47); Hemoglobin 14.3 gm/dl (12.0-16.0); Lymphocyte (Absolute #) 1.94 (1.0-4.6); Lymphocytes % 26.9 % (24.0-44.0); Mean Cell Volume 97.5 fl (78-100); Mean Corpuscular Hemoglobin 33.1 pg (26-32); Mean Platelet Volume 10.2 fl (7.5-11.0); Monocyte (Absolute #) 0.28 (0.0-1.3); Monocytes % 3.9 % (0.0-12.0); Neutrophil % 68.1 % (36.0-66.0); Platelet Count 227 K/mm3 (150-450); Red Blood Count 4.32 M/mm3 (4.1-5.4); Red Cell Distribution Width 12.7 % (11.5-14.0); White Blood Count 7.2 K/mm3 (4.0-10.5)
[2019-03-07 18:19] LABS: ALBUMIN 3.9 g/dL (3.5-5.0); ALKALINE PHOSPHATASE 134 U/L (38-126); ANION GAP 27.5 MEQ/L (5-15); BLOOD UREA NITROGEN 14 mg/dL (7-17); CHLORIDE 92 mmol/L (98-107); Calcium 9.5 mg/dL (8.4-10.2); Carbon Dioxide 18 mmol/L (22-30); Creatinine 1 0.67 mg/dL (0.52-1.04); Potassium 4.8 mmol/L (3.5-5.1); SGOT/AST 30 U/L (14-36); SGPT/ALT 13 U/L (0-35); SODIUM 132 mmol/L (137-145); Total Protein 7.1 g/dL (6.3-8.2)
[2019-03-07 18:33] LABS: Glucose 628 mg/dL (74-106)
[2019-03-07] MEDS ORDERED: NovoLIN R IV ONE (18:33)
[2019-03-07] MEDS ORDERED: NovoLIN R ONE ×2 (19:07→20:29)
[2019-03-07 19:38] LABS: Appearance CLEAR (CLEAR); Bilirubin NEGATIVE (NEGATIVE); Blood NEGATIVE Ery/ul (0-5); Epithelial Cells RARE /HPF (FEW); Glucose >=500 mg/dL (NEGATIVE); Ketones MODERATE (NEGATIVE); Leukocyte Esterase NEGATIVE (NEGATIVE); Mucus SLIGHT /HPF (NEGATIVE); Nitrite NEGATIVE (NEGATIVE); Protein,Urine Dip NEGATIVE (Negative); Specific Gravity 1.027 (1.005-1.025); Urobilinogen NEGATIVE mg/dL (0-1)
[2019-03-07] MEDS ORDERED: Phenergan 25 MG INJ IM PRN (20:00)
[2019-03-07] MEDS ORDERED: TYLENOL 325 MG PO PRN (20:00)
[2019-03-07] MEDS: Sodium Chloride 0.9% 1000 ML 1,000 ML IV SCH (20:01)
[2019-03-07] MEDS ORDERED: NOVOLIN R INSULIN (FOR DRIPS)** 100 UNITS in Sodium Chloride 0.9% 100 ML IVPB 100 ML IV PRN (20:19)
[2019-03-07] MEDS ORDERED: Sodium Chloride 0.9% 100 ML IVPB 100 ML IV ONE (20:29)
[2019-03-07] MEDS ORDERED: Ecotrin 325 MG PO ONE (23:49)
[2019-03-07] MEDS ORDERED: PROTONIX 40 MG IV IV ONE (23:49)
[2019-03-07] MEDS ORDERED: Tums EX 750 MG PO PRN (23:51)
[2019-03-08] MEDS: Zofran 4 MG/2 ML VIAL IV PRN ×3 (00:01→15:46)
[2019-03-08] MEDS: NovoLOG Insulin SQ PRN ×3 (00:02→15:53)
[2019-03-08 00:13] LABS: Lactic Acid 3.1 (0.4-2.0)
[2019-03-08] MEDS ORDERED: Sodium Chloride 0.9% 1000 ML 1,000 ML IV STA (01:00)
[2019-03-08] MEDS: DILAUDID 2 MG INJECTION IV PRN ×6 (01:07→21:39)
[2019-03-08] MEDS: Sodium Chloride 0.9% 1000 ML 1,000 ML IV SCH ×5 (02:41→18:48)
[2019-03-08 03:21] LABS: Lactic Acid 2.9 (0.4-2.0)
[2019-03-08 03:43] LABS: Absolute Neutrophil Ct (ANC) 10.25 (1.4-6.9); BASOPHIL % 0.2 % (0.0-0.4); Basophil (Absolute #) 0.03 (0-0.4); Eosinophil % 0.1 % (0.00-5.0); Eosinophil (Absolute #) 0.01 (0-0.5); Hematocrit 34.5 % (35-47); Hemoglobin 11.7 gm/dl (12.0-16.0); Lymphocyte (Absolute #) 2.15 (1.0-4.6); Lymphocytes % 16.5 % (24.0-44.0); Mean Cell Volume 97.2 fl (78-100); Mean Corpuscular Hgb Concent. 33.9 g/dl (32-36); Mean Platelet Volume 10.1 fl (7.5-11.0); Monocyte (Absolute #) 0.62 (0.0-1.3); Monocytes % 4.7 % (0.0-12.0); Neutrophil % 78.5 % (36.0-66.0); Platelet Count 242 K/mm3 (150-450); Red Blood Count 3.55 M/mm3 (4.1-5.4); Red Cell Distribution Width 12.7 % (11.5-14.0); White Blood Count 13.1 K/mm3 (4.0-10.5)
[2019-03-08 03:57] LABS: ALKALINE PHOSPHATASE 87 U/L (38-126); ANION GAP 20.4 MEQ/L (5-15); BLOOD UREA NITROGEN 13 mg/dL (7-17); CHLORIDE 107 mmol/L (98-107); Calcium 8.3 mg/dL (8.4-10.2); Glucose 253 mg/dL (74-106); Potassium 4.6 mmol/L (3.5-5.1); SGOT/AST 22 U/L (14-36); SGPT/ALT 14 U/L (0-35); SODIUM 138 mmol/L (137-145); Total Protein 5.8 g/dL (6.3-8.2)
[2019-03-08 04:04] LABS: Carbon Dioxide 15 mmol/L (22-30)
[2019-03-08] MEDS ORDERED: TYLENOL 325 MG PO PRN (08:11)
[2019-03-08] MEDS: Carafate SUSPENSION 1000 MG/10 ML PO SCH ×3 (08:18→17:05)
[2019-03-08] MEDS: PROTONIX 40 MG IV IV SCH ×2 (08:30)
--- NOTE | 2019-03-08 08:50 | XRAY ---
Indication: Abdomen pain. Two-dimensional gallbladder sonogram performed. Comparison: None Gallbladder normally distended with minimal sludge/gravel in the dependent portion. No gallbladder wall thickening or pericholecystic fluid. Common bile duct measures 2.5 mm. No intrahepatic biliary distention. Liver is enlarged measuring 21 cm. Remaining visualized portions of the liver, pancreas, and right kidney appear unremarkable. Right kidney measures 11.2 cm in length. Impression: 1. Minimal gallbladder sludge/gravel. Negative for acute cholecystitis or biliary distention. 2. Incidental hepatomegaly.
[2019-03-08] MEDS ORDERED: NOVOLIN R INSULIN (FOR DRIPS)** 100 UNITS in Sodium Chloride 0.9% 100 ML IVPB 100 ML IV PRN (08:55)
--- NOTE | 2019-03-08 08:59 | HP ---
CHIEF COMPLAINT: Vomiting for a week, chest pain, inability to keep anything down with history of diabetes mellitus type 1. HISTORY OF PRESENT ILLNESS: The patient presented to the emergency room by ambulance found to be in diabetic ketoacidosis. She was brought into the hospital for management with IV insulin drip and IV fluids. She did receive 3,000 liters in the emergency room before she was admitted to the [facility]. The patient reports she had occasional problems with diabetic ketoacidosis but it has been a while since she had any problems with this. The patient reports she was seen in the emergency room in [facility] last week and swabbed for influenza which was negative. She reports she used several different medications [id number] for complaints of chest discomfort from what she feels is reflux esophagitis without much relief. PAST MEDICAL/SURGICAL HISTORY: Otherwise significant for anxiety and depression. She apparently has had previously been treated with diabetic pump but does not currently have a pump in place. She has had section x2. HOME MEDICATIONS: Alprazolam 1 mg at night for sleep. Toujeo 15 units b.i.d. and insulin short-acting 12 units subcu t.i.d. with meals. ALLERGIES: NKDA. PHYSICAL EXAMINATION: The patient's vital signs on admission showed temperature 98.6F, pulse 105, blood pressure 179/93. O2 100%. HEENT: Normocephalic, atraumatic. Pupils equal round reactive to light. Oropharynx is dry. NECK: Supple without lymphadenopathy, thyromegaly or JVD. CHEST: Clear to auscultation. HEART: Tachycardic without murmurs, rubs or gallops. ABDOMEN: Diffusely tender with no palpable masses. EXTREMITIES: Without cyanosis, clubbing or edema. NEUROLOGIC: She is alert and oriented x3. LAB DATA AND TESTS: The patient's labs in the emergency room showed her white count to be 7,300, hemoglobin 14.3, PLT count 227,000. Her sugar was 6.8 initially with a BUN 14, creatinine 0.67, sodium 132, potassium 4.8. Her CO2 was 18. Anion gap was 27.5. She had UA with specific gravity of 1.027, greater than 100 glucose. Her troponin was less than 0.012. ASSESSMENT: A patient with diabetic ketoacidosis who has been admitted to the hospital for diabetic ketoacidosis protocol on insulin drip and with close monitoring of vital signs and fluids at 200 cc/hour. We will give her IV Protonix for the chest discomfort and Carafate liquid 1 gm every six hours to help out with her esophagitis. We will monitor for any potential deterioration. She was treated with Tylenol for pain in her chest but without relief. She was given Dilaudid which did help at a milligram every 2 hours PRN for the chest discomfort. She did have a 12 lead EKG that showed no acute changes other than sinus tachycardia.
--- NOTE | 2019-03-08 09:00 | XRAY ---
Indication: Fever. Comparison: September 10, 2016. Portable chest demonstrates normal heart, lungs, and bony thorax.
[2019-03-08 09:03] LABS: AMYLASE 32 U/L (30-110); ANION GAP 19.1 MEQ/L (5-15); BLOOD UREA NITROGEN 13 mg/dL (7-17); CHLORIDE 107 mmol/L (98-107); Calcium 8.2 mg/dL (8.4-10.2); Creatinine 1 0.72 mg/dL (0.52-1.04); Glucose 253 mg/dL (74-106); LIPASE 16 U/L (23-300); Potassium 4.6 mmol/L (3.5-5.1); SODIUM 138 mmol/L (137-145)
[2019-03-08 09:10] LABS: Carbon Dioxide 15 mmol/L (22-30)
[2019-03-08] MEDS: Lantus Insulin SQ SCH ×3 (09:38→21:35)
[2019-03-08] MEDS: NovoLOG Insulin SQ SCH ×3 (09:39→17:36)
[2019-03-08] MEDS ORDERED: INSULIN GLARGINE HUM REC ANLOG 15 UNIT SQ SCH (10:00)
[2019-03-08] MEDS ORDERED: Dextrose 5% -0.45 NaCl 1000 ML 1,000 ML IV SCH (11:15)
[2019-03-08] MEDS ORDERED: [UNRECOGNIZED DRUG - OTHER] SQ SCH (11:30)
[2019-03-08] MEDS ORDERED: INSULIN ASPART 12 UNIT SQ SCH (11:30)
[2019-03-08] MEDS: Phenergan 25 MG INJ IV PRN ×2 (12:44→18:47)
[2019-03-08 12:50] LABS: ANION GAP 14.3 MEQ/L (5-15); BLOOD UREA NITROGEN 11 mg/dL (7-17); CHLORIDE 107 mmol/L (98-107); Calcium 8.3 mg/dL (8.4-10.2); Carbon Dioxide 19 mmol/L (22-30); Creatinine 1 0.64 mg/dL (0.52-1.04); Glucose 234 mg/dL (74-106); SODIUM 136 mmol/L (137-145)
[2019-03-08] MEDS: XANAX 1 MG PO SCH (21:35)
[2019-03-09] MEDS: Carafate SUSPENSION 1000 MG/10 ML PO SCH ×5 (00:12→23:45)
[2019-03-09] MEDS: NovoLOG Insulin SQ PRN (00:13)
[2019-03-09] MEDS: Sodium Chloride 0.9% 1000 ML 1,000 ML IV SCH ×4 (00:52→21:16)
[2019-03-09 05:41] LABS: Absolute Neutrophil Ct (ANC) 3.76 (1.4-6.9); BASOPHIL % 0.3 % (0.0-0.4); Basophil (Absolute #) 0.03 (0-0.4); Eosinophil % 1.9 % (0.00-5.0); Eosinophil (Absolute #) 0.17 (0-0.5); Hematocrit 40.7 % (35-47); Hemoglobin 13.6 gm/dl (12.0-16.0); Lymphocyte (Absolute #) 4.41 (1.0-4.6); Lymphocytes % 50.2 % (24.0-44.0); Mean Cell Volume 98.8 fl (78-100); Mean Corpuscular Hgb Concent. 33.4 g/dl (32-36); Mean Platelet Volume 12.5 fl (7.5-11.0); Monocyte (Absolute #) 0.42 (0.0-1.3); Monocytes % 4.8 % (0.0-12.0); Neutrophil % 42.8 % (36.0-66.0); Red Blood Count 4.12 M/mm3 (4.1-5.4); Red Cell Distribution Width 13.5 % (11.5-14.0); White Blood Count 8.8 K/mm3 (4.0-10.5)
[2019-03-09 05:47] LABS: Platelet Count 107 K/mm3 (150-450)
[2019-03-09 06:00] LABS: ALBUMIN 2.9 g/dL (3.5-5.0); ALKALINE PHOSPHATASE 100 U/L (38-126); ANION GAP 13.8 MEQ/L (5-15); BLOOD UREA NITROGEN 7 mg/dL (7-17); CHLORIDE 108 mmol/L (98-107); Calcium 8.6 mg/dL (8.4-10.2); Carbon Dioxide 19 mmol/L (22-30); Creatinine 1 0.51 mg/dL (0.52-1.04); Glucose 176 mg/dL (74-106); MAGNESIUM 1.7 mg/dL (1.6-2.3); Potassium 4.1 mmol/L (3.5-5.1); SGOT/AST 23 U/L (14-36); SGPT/ALT 10 U/L (0-35); SODIUM 136 mmol/L (137-145); Total Protein 5.8 g/dL (6.3-8.2)
[2019-03-09] MEDS: Zofran 4 MG/2 ML VIAL IV PRN ×2 (06:25→16:56)
[2019-03-09] MEDS: DILAUDID 2 MG INJECTION IV PRN ×7 (06:32→23:59)
[2019-03-09] MEDS: PROTONIX 40 MG IV IV SCH (10:01)
[2019-03-09] MEDS: Pepcid 20 MG VIAL IV SCH (10:02)
[2019-03-09] MEDS: Lantus Insulin SQ SCH ×2 (10:03→20:49)
[2019-03-09] MEDS: Phenergan 25 MG INJ IV PRN (10:04)
[2019-03-09] MEDS: NovoLOG Insulin SQ SCH ×3 (10:07→17:39)
[2019-03-09] MEDS: XANAX 1 MG PO SCH (20:49)
[2019-03-10] MEDS: NovoLOG Insulin SQ PRN ×2 (00:11→13:15)
[2019-03-10] MEDS: Phenergan 25 MG INJ IV PRN (02:05)
[2019-03-10] MEDS: Sodium Chloride 0.9% 1000 ML 1,000 ML IV SCH ×2 (03:52→13:12)
[2019-03-10 05:08] LABS: Hematocrit 34.6 % (35-47); Hemoglobin 11.7 gm/dl (12.0-16.0); Mean Cell Volume 97.5 fl (78-100); Mean Corpuscular Hgb Concent. 33.8 g/dl (32-36); Mean Platelet Volume 10.3 fl (7.5-11.0); Platelet Count 209 K/mm3 (150-450); Red Blood Count 3.55 M/mm3 (4.1-5.4); Red Cell Distribution Width 12.9 % (11.5-14.0); White Blood Count 8.2 K/mm3 (4.0-10.5)
[2019-03-10 05:24] LABS: ALKALINE PHOSPHATASE 86 U/L (38-126); ANION GAP 9.3 MEQ/L (5-15); BLOOD UREA NITROGEN 3 mg/dL (7-17); CHLORIDE 107 mmol/L (98-107); Calcium 8.2 mg/dL (8.4-10.2); Carbon Dioxide 24 mmol/L (22-30); Creatinine 1 0.51 mg/dL (0.52-1.04); Glucose 73 mg/dL (74-106); SGOT/AST 37 U/L (14-36); SGPT/ALT 13 U/L (0-35); SODIUM 138 mmol/L (137-145)
[2019-03-10 05:48] LABS: Potassium 2.9 mmol/L (3.5-5.1)
[2019-03-10] MEDS: POTASSIUM CHLORIDE 20 mEq IN WATER 100ML 20 MEQ/100 ML BAG IV SCH ×2 (06:13→08:21)
[2019-03-10] MEDS: Carafate SUSPENSION 1000 MG/10 ML PO SCH ×3 (06:13→17:44)
[2019-03-10] MEDS: DILAUDID 2 MG INJECTION IV PRN (06:26)
[2019-03-10] MEDS: PROTONIX 40 MG IV IV SCH (08:23)
[2019-03-10] MEDS: Pepcid 20 MG VIAL IV SCH (08:23)
[2019-03-10] MEDS: NovoLOG Insulin SQ SCH ×3 (08:29→17:46)
[2019-03-10] MEDS: Lantus Insulin SQ SCH ×2 (08:29→22:22)
[2019-03-10] MEDS: PERCOCET TABLET 5/325MG PO PRN ×4 (09:27→22:21)
[2019-03-10] MEDS: XANAX 1 MG PO SCH (22:23)
[2019-03-11] MEDS: Sodium Chloride 0.9% 1000 ML 1,000 ML IV SCH (02:22)
[2019-03-11 06:42] LABS: Absolute Neutrophil Ct (ANC) 2.31 (1.4-6.9); BASOPHIL % 0.6 % (0.0-0.4); Basophil (Absolute #) 0.04 (0-0.4); Eosinophil % 4.3 % (0.00-5.0); Eosinophil (Absolute #) 0.27 (0-0.5); Hematocrit 33.4 % (35-47); Hemoglobin 11.4 gm/dl (12.0-16.0); Lymphocyte (Absolute #) 3.36 (1.0-4.6); Mean Cell Volume 97.7 fl (78-100); Mean Corpuscular Hemoglobin 33.3 pg (26-32); Mean Corpuscular Hgb Concent. 34.1 g/dl (32-36); Mean Platelet Volume 11.3 fl (7.5-11.0); Monocyte (Absolute #) 0.36 (0.0-1.3); Monocytes % 5.7 % (0.0-12.0); Neutrophil % 36.4 % (36.0-66.0); Red Blood Count 3.42 M/mm3 (4.1-5.4); Red Cell Distribution Width 12.8 % (11.5-14.0); White Blood Count 6.3 K/mm3 (4.0-10.5)
[2019-03-11 06:52] LABS: ALBUMIN 2.6 g/dL (3.5-5.0); ALKALINE PHOSPHATASE 69 U/L (38-126); ANION GAP 7.5 MEQ/L (5-15); BLOOD UREA NITROGEN 4 mg/dL (7-17); CHLORIDE 104 mmol/L (98-107); Calcium 8.2 mg/dL (8.4-10.2); Carbon Dioxide 29 mmol/L (22-30); Creatinine 1 0.44 mg/dL (0.52-1.04); Glucose 121 mg/dL (74-106); Potassium 3.5 mmol/L (3.5-5.1); SGOT/AST 37 U/L (14-36); SGPT/ALT 15 U/L (0-35); SODIUM 137 mmol/L (137-145); Total Protein 5.4 g/dL (6.3-8.2)
[2019-03-11 07:27] VITALS: BP 127/82; PULSE 101; O2SAT 99
[2019-03-11 07:37] LABS: Platelet Count 165 K/mm3 (150-450)
--- NOTE | 2019-03-11 09:37 | DS ---
DISCHARGE DIAGNOSES: 1) DIABETIC KETOACIDOSIS. 2) REFLUX ESOPHAGITIS. HOSPITAL COURSE: The patient is a 34 year-old white female presenting with diabetic ketoacidosis to the emergency room with her blood sugar greater than 600. She was found to have a decrease in her CO2 levels and ketones were found in her urine. The patient was vomiting, unable to keep anything down. She was subsequently admitted to the hospital for IV fluids and placed on diabetic ketoacidosis protocol. The patient's blood sugars dropped to 200 fairly easily. Initially we stopped the insulin drip. However the patient's sugar vika again to 300. Her bicarb still remains somewhat low in fact was worsened at 15. We restarted the drip and left it on overnight. By the next morning the patient was feeling somewhat better. The patient was vehemently complaining of chest pain on admission which was thought to be due to reflux esophagitis and did not respond to anything other narcotic medications. She was given Dilaudid to help out with pain control. The patient otherwise was placed on Carafate liquid four times a daily as well as Protonix 40 mg IV and Pepcid 40 mg. The patient did improve on this therapy treatment, being able to eat a little bit more the next day. The patient was somewhat slow to improve and reluctant to go home as she felt like she might get worse again. She still had episodes of nausea requiring antiemetic medications even into the day of 03/10/2019. By the morning of 03/11/2019, the patient was looking much better, sugars were less than 200. She was felt to be ready for discharge home at this time. We discharged her home with additional medications of Carafate four times daily, Protonix 40 mg daily, Pepcid 40 mg daily. She was given Percocet 5/325 mg #15 four times a day PRN for pain. She was instructed to follow up in the office in one week. She will continue to use her insulin as she has been at home previously but placed on sliding scale coverage as her appetite has not completely returned to normal just yet. She will return to the hospital if she has any further exacerbations in the meantime.
== END 2019-03-11 10:42 | disposition home or self-care (01) | DRG 639 ==
LOC: ED 16:46 → ICU 19:48
PROVIDERS: ADMIT Family Medicine; ATTEND Family Medicine
DX: E11.10 Type 2 diabetes mellitus with ketoacidosis without coma (principal); R07.9 Chest pain, unspecified; K21.0 Gastro-esophageal reflux disease with esophagitis; Z79.4 Long term (current) use of insulin; Z79.899 Other long term (current) drug therapy
CPT/HCPCS: 36000; 36415; 71045; 76705; 80048; 80053; 81001; 82150; 82962; 83036; 83605; 83690; 83735; 84132; 84484; 84703; 85025; 85027; 93005; 94760; 94762; 96360; 96361; 96374; 96375; 99285; 99291; J1170; J1815; J2405; J2550; J3480; A9270-GY

== ENCOUNTER 2019-08-06 20:09 | Emergency (ER) | payer OTHER ==
[2019-08-06] MEDS ORDERED: HUMULIN R 100 UNIT in Sodium Chloride 0.9% 100 ML IVPB 100 ML IV PRN (20:16)
[2019-08-06] MEDS ORDERED: Sodium Chloride 0.9% 1000 ML 1,000 ML IV STA (20:16)
--- NOTE | 2019-08-06 20:16 | ERPHSYRPT ---
- History of Present Illness Time Seen by Provider: 08/06/19 20:12 Source: patient, family, EMS Exam Limitations: clinical condition Physician History: pt is known diabetic and has trouble with her sugar regulation noted that she was not answering phone and came to check and found her sleepy/somnolent and has off scale glucose reading per EMS on accucheck. Timing/Duration: today Severity: severe Modifying Factors: Improves With: eating Associated Symptoms: nausea Allergies/Adverse Reactions: No Known Drug Allergies Allergy (Verified 03/07/19 17:06) Home Medications: Alprazolam 1 mg [Xanax 1 mg] 1 mg PO HS 02/13/14 [History] Insulin Glargine,Hum.rec.anlog [Toujeo Solostar] 15 units SQ BID 07/18/18 [ History] Insulin Aspart (Niacinamide) [Fiasp 100 Unit/ml Flextouch] 12 units SQ TIDAC [History] Hx Tetanus, Diphtheria Vaccination/Date Given: Yes Hx Influenza Vaccination/Date Given: No Hx Pneumococcal Vaccination/Date Given: No - Review of Systems Constitutional: No Fever, No Chills Eyes: No Symptoms Ears, Nose, & Throat: No Symptoms Respiratory: No Cough, No Dyspnea Cardiac: No Chest Pain, No Edema, No Syncope Abdominal/Gastrointestinal: No Abdominal Pain, No Nausea, No Vomiting, No Diarrhea Genitourinary Symptoms: No Dysuria Musculoskeletal: No Back Pain, No Neck Pain Skin: No Rash Neurological: Other (smnolence), No Dizziness, No Focal Weakness, No Sensory Changes Psychological: No Symptoms Endocrine: Polyuria, Polydipsia Hematologic/Lymphatic: No Symptoms Immunological/Allergic: No Symptoms All Other Systems: Reviewed and Negative - Past Medical History Pertinent Past Medical History: Yes Neurological History: Peripheral Neuropathy ENT History: No Pertinent History Cardiac History: No Pertinent History Respiratory History: No Pertinent History Endocrine Medical History: Diabetes Type I Musculoskeletal History: No Pertinent History GI Medical History: No Pertinent History History: No Pertinent History Psycho-Social History: Anxiety, Depression Female Reproductive Disorders: No Pertinent History Other Medical History: was taken off of diabetic pump and put on sub q insulin coverage- 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);carpal tunnel bilat - Past Surgical History Past Surgical History: Yes Neuro Surgical History: No Pertinent History Cardiac: No Pertinent History Respiratory: No Pertinent History Gastrointestinal: No Pertinent History Genitourinary: No Pertinent History Musculoskeletal: No Pertinent History Female Surgical History: Dilation & Curettage, Section Other Surgical History: cs x2 - Social History Smoking Status: Current every day smoker How long have you smoked: years Exposure to second hand smoke: Yes Alcohol Use: None Drug Use: none Patient Lives Alone: No Significant Family History: heart disease, diabetes - Nursing Vital Signs Nursing Vital Signs: Initial Vital Signs Temperature 97.8 F 08/06/19 20:10 Pulse Rate 111 H 08/06/19 20:10 Respiratory Rate 36 H 08/06/19 20:10 Blood Pressure 101/62 08/06/19 20:10 O2 Sat by Pulse Oximetry 99 08/06/19 20:10 - Physical Exam General Appearance: moderate distress, alert Eye Exam: PERRL/EOMI, eyes nml inspection Ears, Nose, Throat Exam: normal ENT inspection, TMs normal, pharynx normal, moist mucous membranes Neck Exam: normal inspection, non-tender, supple, full range of motion Respiratory Exam: normal breath sounds, lungs clear, airway intact, No respiratory distress Cardiovascular Exam: regular rate/rhythm, normal heart sounds, normal peripheral pulses Gastrointestinal/Abdomen Exam: soft, normal bowel sounds, No tenderness, No mass Pelvic Exam: deferred Rectal Exam: deferred Back Exam: normal inspection, normal range of motion, No CVA tenderness, No vertebral tenderness Extremity Exam: normal inspection, normal range of motion, pelvis stable Neurologic Exam: cooperative, nml cerebellar function, confusion, No motor deficits Skin Exam: normal color, warm, dry, No rash Lymphatic Exam: No adenopathy SpO2 Interpretation: normal O2 Delivery: Room Air - Course Nursing assessment & vital signs reviewed: Yes EKG Interpreted by Me: Sinus Tach, prolonged QT interval, Right Bundle Branch Block, Non-specific ST Changes, Other (lpfb) Ordered Tests: Active Orders 24 hr Category Date Time Status Accucheck STAT Care 08/06/19 20:16 Active Jonathan Dukes DAILY Care 08/06/19 21:32 Ordered Director And Professor STAT Care 08/06/19 20:19 Active EKG-ER Only STAT Care 08/06/19 20:16 Active IV Insertion-2nd Peripheral STAT Care 08/06/19 20:16 Active Pulse Oximetry (ED) STAT Care 08/06/19 20:16 Active ABG [ARTERIAL BLOOD GASES] Stat Lab 08/06/19 21:32 Ordered CBC W DIFF Stat Lab 08/06/19 20:39 Completed CMP Stat Lab 08/06/19 20:39 Completed CULTURE,URINE Routine Lab 08/06/19 21:03 Received ETHYL ALCOHOL Stat Lab 08/06/19 20:39 Completed HCG QUALITATIVE,SERUM Stat Lab 08/06/19 20:39 Completed Lactic Acid Urgent Lab 08/06/19 20:35 Completed UA W/RFX UR CULTURE Stat Lab 08/06/19 21:01 Completed Medication Summary Generic Name Dose Route Start Last Admin Trade Name Freq PRN Reason Stop Dose Admin Insulin Human Regular 100 unit 100 mls @ 0 mls/hr 08/06/19 20:16 / Sodium Chloride IV 09/05/19 20:15 .Q0M PRN DKA/HYPERGLYCEMIA Protocol 0.1 UNIT/KG/HR Discontinued Medications Generic Name Dose Route Start Last Admin Trade Name Freq PRN Reason Stop Dose Admin Sodium Chloride 1,000 mls @ 999 mls/hr 08/06/19 20:16 08/06/19 21:34 Sodium Chloride 0.9% 1000 Ml IV 08/06/19 21:16 Infused .Q1H1M STA Infusion Sodium Chloride Confirm 08/06/19 20:34 Sodium Chloride 0.9% 1000 Ml Administered 08/06/19 20:35 Dose 1,000 mls @ ud .ROUTE .STK-MED ONE Sodium Chloride Confirm 08/06/19 21:29 Sodium Chloride 0.9% 100 Ml Ivpb Administered 08/06/19 21:30 Dose 100 mls @ ud IV .STK-MED ONE Insulin Human Regular Confirm 08/06/19 21:30 Humulin R Administered 08/06/19 21:31 Dose 1 unit .ROUTE .STK-MED ONE Insulin Human Regular 6 unit 08/06/19 21:40 Humulin R IV 08/06/19 21:41 STAT ONE Insulin Human Regular Confirm 08/06/19 21:42 Humulin R Administered 08/06/19 21:43 Dose 1 unit .ROUTE .STK-MED ONE Lab/Rad Data: Laboratory Result Diagrams 08/06/19 20:39 08/06/19 20:39 Laboratory Results 06/13/20 06/13/20 06/13/20 Range/Units 21:01 20:39 20:39 WBC (4.0-10.5) K/mm3 RBC (4.1-5.4) M/mm3 Hgb (12.0-16.0) gm/dl Hct (35-47) % MCV (78-100) fl MCH (26-32) pg MCHC (32-36) g/dl RDW (11.5-14.0) % Plt Count (150-450) K/mm3 MPV (7.5-11.0) fl Gran % (36.0-66.0) % Eos # (Auto) (0-0.5) Absolute Lymphs (auto) (1.0-4.6) Absolute Monos (auto) (0.0-1.3) Lymphocytes % (24.0-44.0) % Monocytes % (0.0-12.0) % Eosinophils % (0.00-5.0) % Basophils % (0.0-0.4) % Absolute Granulocytes (1.4-6.9) Basophils # (0-0.4) Sodium 133 L (137-145) mmol/L Potassium 6.3 H* (3.5-5.1) mmol/L Chloride 95 L (98-107) mmol/L Carbon Dioxide < 5 L* (22-30) mmol/L BUN 26 H (7-17) mg/dL Creatinine 1.24 H (0.52-1.04) mg/dL Estimated GFR 52.9 ML/MIN Glucose 1616 H* (74-106) mg/dL Lactic Acid (0.4-2.0) Calcium 9.1 (8.4-10.2) mg/dL Total Bilirubin 0.40 (0.2-1.3) mg/dL AST 31 (14-36) U/L ALT 19 (0-35) U/L Alkaline Phosphatase 181 H (38-126) U/L Serum Total Protein 6.5 (6.3-8.2) g/dL Albumin 4.0 (3.5-5.0) g/dL Serum , Qual NEGATIVE (Negative) Urine Color STRAW (YELLOW) Urine Appearance CLEAR (CLEAR) Urine pH 5.0 (5-6) Ur Specific Wilmer 1.022 (1.005-1.025) Urine Protein NEGATIVE (Negative) Urine Ketones SMALL (NEGATIVE) Urine Blood NEGATIVE (0-5) Rodney/ul Urine Nitrite NEGATIVE (NEGATIVE) Urine Bilirubin NEGATIVE (NEGATIVE) Urine Urobilinogen NEGATIVE (0-1) mg/dL Ur Leukocyte Esterase NEGATIVE (NEGATIVE) Urine WBC (Auto) NONE (0-5) /HPF Urine RBC (Auto) NONE (0-2) /HPF U Epithel Cells (Auto) NONE (FEW) /HPF Urine Bacteria (Auto) NONE SEEN (NEGATIVE) /HPF Urine Mucus (Auto) SLIGHT (NEGATIVE) /HPF Urine Culture Reflexed ORDERED SEPARATELY (NO) Urine Glucose >=500 (NEGATIVE) mg/dL Ethyl Alcohol < 10 (0-10) mg/dL 08/06/19 08/06/19 Range/Units 20:39 20:35 WBC 10.9 H (4.0-10.5) K/mm3 RBC 3.63 L (4.1-5.4) M/mm3 Hgb 12.5 (12.0-16.0) gm/dl Hct 44.9 (35-47) % MCV 123.7 H (78-100) fl MCH 34.4 H (26-32) pg MCHC 27.8 L (32-36) g/dl RDW 13.9 (11.5-14.0) % Plt Count 348 (150-450) K/mm3 MPV 11.1 H (7.5-11.0) fl Gran % 83.0 H (36.0-66.0) % Eos # (Auto) 0.01 (0-0.5) Absolute Lymphs (auto) 1.44 (1.0-4.6) Absolute Monos (auto) 0.36 (0.0-1.3) Lymphocytes % 13.3 L (24.0-44.0) % Monocytes % 3.3 (0.0-12.0) % Eosinophils % 0.1 (0.00-5.0) % Basophils % 0.3 (0.0-0.4) % Absolute Granulocytes 9.02 H (1.4-6.9) Basophils # 0.03 (0-0.4) Sodium (137-145) mmol/L Potassium (3.5-5.1) mmol/L Chloride (98-107) mmol/L Carbon Dioxide (22-30) mmol/L BUN (7-17) mg/dL Creatinine (0.52-1.04) mg/dL Estimated GFR ML/MIN Glucose (74-106) mg/dL Lactic Acid 3.2 H (0.4-2.0) Calcium (8.4-10.2) mg/dL Total Bilirubin (0.2-1.3) mg/dL AST (14-36) U/L ALT (0-35) U/L Alkaline Phosphatase (38-126) U/L Serum Total Protein (6.3-8.2) g/dL Albumin (3.5-5.0) g/dL Serum , Qual (Negative) Urine Color (YELLOW) Urine Appearance (CLEAR) Urine pH (5-6) Ur Specific Wilmer (1.005-1.025) Urine Protein (Negative) Urine Ketones (NEGATIVE) Urine Blood (0-5) Rodney/ul Urine Nitrite (NEGATIVE) Urine Bilirubin (NEGATIVE) Urine Urobilinogen (0-1) mg/dL Ur Leukocyte Esterase (NEGATIVE) Urine WBC (Auto) (0-5) /HPF Urine RBC (Auto) (0-2) /HPF U Epithel Cells (Auto) (FEW) /HPF Urine Bacteria (Auto) (NEGATIVE) /HPF Urine Mucus (Auto) (NEGATIVE) /HPF Urine Culture Reflexed (NO) Urine Glucose (NEGATIVE) mg/dL Ethyl Alcohol (0-10) mg/dL - Progress Progress: unchanged, re-examined Progress Note: 08/06/19 21:[address] Torres in ER at [facility] and will transfer for definitive care - give IVF bolus and Insulin 6 U and start drip - awaiting blood gas for bicarb drip airway is still good and pulso ox 99%. 08/06/19 21:48 pt required Critical care throughout visit to transfer due to resus efforts in DKA. Discussed with DrMarietta: Other (Dr. Torres at [facility]) Will see patient in: ED Counseled pt/family regarding: lab results, diagnosis, need for follow-up, rad results - Departure Departure Disposition: Transfer Clinical Impression: DKA (diabetic ketoacidoses) Condition: Critical Critical Care Time: No Referrals: FROILAN FRANCO [Primary Care Provider] -
[2019-08-06 20:33] VITALS: O2SAT 98
[2019-08-06] MEDS ORDERED: Sodium Chloride 0.9% 1000 ML 1,000 ML ONE (20:34)
[2019-08-06 20:42] LABS: Absolute Neutrophil Ct (ANC) 9.02 (1.4-6.9); BASOPHIL % 0.3 % (0.0-0.4); Basophil (Absolute #) 0.03 (0-0.4); Eosinophil % 0.1 % (0.00-5.0); Eosinophil (Absolute #) 0.01 (0-0.5); Hematocrit 44.9 % (35-47); Hemoglobin 12.5 gm/dl (12.0-16.0); Lymphocyte (Absolute #) 1.44 (1.0-4.6); Lymphocytes % 13.3 % (24.0-44.0); Mean Cell Volume 123.7 fl (78-100); Mean Corpuscular Hemoglobin 34.4 pg (26-32); Mean Corpuscular Hgb Concent. 27.8 g/dl (32-36); Mean Platelet Volume 11.1 fl (7.5-11.0); Monocyte (Absolute #) 0.36 (0.0-1.3); Monocytes % 3.3 % (0.0-12.0); Platelet Count 348 K/mm3 (150-450); Red Blood Count 3.63 M/mm3 (4.1-5.4); Red Cell Distribution Width 13.9 % (11.5-14.0); White Blood Count 10.9 K/mm3 (4.0-10.5)
[2019-08-06 20:53] LABS: ALKALINE PHOSPHATASE 181 U/L (38-126); BLOOD UREA NITROGEN 26 mg/dL (7-17); CHLORIDE 95 mmol/L (98-107); Calcium 9.1 mg/dL (8.4-10.2); Creatinine 1 1.24 mg/dL (0.52-1.04); SGOT/AST 31 U/L (14-36); SGPT/ALT 19 U/L (0-35); SODIUM 133 mmol/L (137-145); Total Protein 6.5 g/dL (6.3-8.2)
[2019-08-06 21:06] LABS: Appearance CLEAR (CLEAR); Bilirubin NEGATIVE (NEGATIVE); Blood NEGATIVE Ery/ul (0-5); Glucose >=500 mg/dL (NEGATIVE); Ketones SMALL (NEGATIVE); Leukocyte Esterase NEGATIVE (NEGATIVE); Mucus SLIGHT /HPF (NEGATIVE); Nitrite NEGATIVE (NEGATIVE); Protein,Urine Dip NEGATIVE (Negative); Specific Gravity 1.022 (1.005-1.025); Urobilinogen NEGATIVE mg/dL (0-1)
[2019-08-06 21:22] LABS: Bacteria NONE SEEN /HPF (NEGATIVE)
[2019-08-06 21:25] VITALS: BP 100/61; PULSE 107
[2019-08-06 21:27] LABS: ETHYL ALCOHOL < 10 mg/dL (0-10)
[2019-08-06 21:28] LABS: Glucose 1616 mg/dL (74-106)
[2019-08-06 21:29] LABS: Potassium 6.3 mmol/L (3.5-5.1)
[2019-08-06] MEDS ORDERED: Sodium Chloride 0.9% 100 ML IVPB 100 ML IV ONE (21:29)
[2019-08-06 21:30] LABS: Carbon Dioxide < 5 mmol/L (22-30)
[2019-08-06] MEDS ORDERED: HUMULIN R ONE ×2 (21:30→21:42)
[2019-08-06] MEDS ORDERED: HUMULIN R IV ONE (21:40)
[2019-08-06 21:44] LABS: A-aADO2 9; ABG HEMOGLOBIN 12.3; ARTERIAL BLD GAS O2 SATURATION 98.7 % (95-100); ARTERIAL BLOOD GAS BASE EXCESS -25.4 (-2.0-2.0); ARTERIAL BLOOD GAS FIO2 21 %; ARTERIAL BLOOD GAS PCO2 12 mmHg (35-45); ARTERIAL BLOOD GAS PO2 126 mmHg (75-100); ARTERIAL BLOOD GAS pH 7.04 (7.35-7.45); CARBOXYHEMOGLOBIN 0.7 % THgb (0.0-6.9); HCO3- 3.2 (22-28); paO2 pAO1 0.93
[2019-08-06 21:45] LABS: ABG POTASSIUM 7.1 (3.5-5.1); ABG SITE RIGHT BRACHIAL
[2019-08-06] MEDS ORDERED: Dextrose 5%/Water IV Soln. 1000 ML 1,000 ML IV ONE (21:48)
[2019-08-06] MEDS ORDERED: SODIUM BICARBONATE 50 MEQ/50 ML ABBOJECT IV ONE (21:49)
[2019-08-06] MEDS ORDERED: Sodium Bicarbonate 50 MEQ/50 ML VIAL ONE (21:52)
== END 2019-08-06 22:32 | disposition short-term general hospital (02) ==
LOC: ED 20:09
DX: E10.10 Type 1 diabetes mellitus with ketoacidosis without coma (principal)
CPT/HCPCS: 36000; 36415; 36600; 51702; 80053; 80307; 81001; 81025; 82375; 82803; 82962; 83605; 85025; 87086; 93005; 93041; 94760; 96360; 96374; 99285; 99291; 99292; J1815; G0480

== ENCOUNTER 2019-09-09 16:27 | Inpatient (IN) | payer OTHER ==
[2019-09-09] MEDS ORDERED: Sodium Chloride 0.9% 1000 ML 2,000 ML ONE (16:35)
[2019-09-09] MEDS ORDERED: Sodium Chloride 0.9% 1000 ML 1,000 ML IV STA ×3 (16:39→17:26)
[2019-09-09] MEDS ORDERED: HUMULIN R SQ ONE (16:39)
--- NOTE | 2019-09-09 16:47 | ERPHSYRPT ---
- History of Present Illness Time Seen by Provider: 09/09/19 16:39 Source: family, EMS Physician History: This is a 34-year-old patient with known history of diabetes presenting to the ED via EMS after being found less responsive at home. -History obtained from EMS-family called 911 as patient was ;less responsive at home. The glucometer can read up to 700 and it read high on the meter. Vital signs were stable for them -On arrival to ED, patient continues to be less responsive, vital signs are stable, blood sugars too high to read -She answers questions intermittently- states she is hurting everywhere, has been vomiting x 2 days - denies fever/sob/urinary symptoms/drug abuse - denies Timing/Duration: today Severity: severe Associated Symptoms: other (unable to obtain given patients mental status) Allergies/Adverse Reactions: No Known Drug Allergies Allergy (Verified 09/09/19 17:06) Home Medications: Alprazolam 1 mg [Xanax 1 mg] 1 mg PO HS 02/13/14 [History] Insulin Glargine,Hum.rec.anlog [Toujeo Solostar] 15 units SQ BID 07/18/18 [History] Insulin Aspart (Niacinamide) [Fiasp 100 Unit/ml Flextouch] 12 units SQ TIDAC 03/07/19 [History] Hx Tetanus, Diphtheria Vaccination/Date Given: Yes Hx Influenza Vaccination/Date Given: No Hx Pneumococcal Vaccination/Date Given: No - Review of Systems Constitutional: No Symptoms, Other Eyes: No Symptoms Ears, Nose, & Throat: No Symptoms Respiratory: No Symptoms Cardiac: No Symptoms Abdominal/Gastrointestinal: Nausea, Vomiting Genitourinary Symptoms: No Symptoms Musculoskeletal: No Symptoms, Other Skin: No Symptoms Neurological: No Symptoms Psychological: No Symptoms Endocrine: No Symptoms Hematologic/Lymphatic: No Symptoms Immunological/Allergic: No Symptoms All Other Systems: Reviewed and Negative - Past Medical History Pertinent Past Medical History: Yes Neurological History: Peripheral Neuropathy ENT History: No Pertinent History Cardiac History: No Pertinent History Respiratory History: No Pertinent History Endocrine Medical History: Diabetes Type I Musculoskeletal History: No Pertinent History GI Medical History: No Pertinent History History: No Pertinent History Psycho-Social History: Anxiety, Depression Female Reproductive Disorders: No Pertinent History Other Medical History: was taken off of diabetic pump and put on sub q insulin coverage- 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 (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 Krishnan);carpal tunnel bilat - Past Surgical History Past Surgical History: Yes Neuro Surgical History: No Pertinent History Cardiac: No Pertinent History Respiratory: No Pertinent History Gastrointestinal: No Pertinent History Genitourinary: No Pertinent History Musculoskeletal: No Pertinent History Female Surgical History: Dilation & Curettage, Section Other Surgical History: cs x2 - Social History Smoking Status: Current every day smoker How long have you smoked: years Exposure to second hand smoke: Yes Alcohol Use: None Drug Use: none Patient Lives Alone: No Significant Family History: heart disease, diabetes - Female History Hx Now: No - Nursing Vital Signs Nursing Vital Signs: Initial Vital Signs Pulse Rate 127 H 09/09/19 16:28 Respiratory Rate 28 H 09/09/19 16:28 Blood Pressure 140/78 09/09/19 16:28 O2 Sat by Pulse Oximetry 100 09/09/19 16:28 Pain Scale Pain Intensity 9 - Physical Exam General Appearance: mild distress Eye Exam: PERRL/EOMI, eyes nml inspection, No scleral icterus Ears, Nose, Throat Exam: normal ENT inspection, TMs normal, pharynx normal Neck Exam: normal inspection, non-tender, supple, full range of motion Respiratory Exam: normal breath sounds, lungs clear, No respiratory distress Cardiovascular Exam: regular rate/rhythm, normal heart sounds, normal peripheral pulses Gastrointestinal/Abdomen Exam: soft, normal bowel sounds Pelvic Exam: not done Rectal Exam: deferred Back Exam: normal inspection, No CVA tenderness Extremity Exam: normal inspection, normal range of motion Neurologic Exam: alert, oriented x 3, cooperative, other (unable to assess given patients mental status) Skin Exam: normal color, warm Lymphatic Exam: No adenopathy SpO2 Interpretation: normal O2 Delivery: Room Air - Course EKG Interpreted by Me: RATE, Sinus Tach, Right [place] Deviation, NORMAL INTERVALS, NORMAL QRS Rhythm Strip: Rate, Sinus Tachycardia Ordered Tests: Active Orders 24 hr Category Date Time Status Accucheck STAT Care 09/09/19 16:39 Active Fmd Teacher STAT Care 09/09/19 16:40 Active EKG-ER Only STAT Care 09/09/19 16:39 Active Rizzo [Catheter-[place] Rizzo] STAT Care 09/09/19 16:49 Active IV Insertion STAT Care 09/09/19 16:39 Active IV Insertion-2nd Peripheral STAT Care 09/09/19 16:39 Active CHEST 1 VIEW (PORTABLE) Stat Exams 09/09/19 16:42 Completed ABG [ARTERIAL BLOOD GASES] Urgent Lab 09/09/19 17:50 Completed ARTERIAL BLOOD GASES Urgent Lab 09/09/19 16:39 Completed CBC W DIFF Stat Lab 09/09/19 16:40 Completed CMP Stat Lab 09/09/19 16:40 Completed CULTURE,URINE Stat Lab 09/09/19 16:49 Ordered ETHYL ALCOHOL Stat Lab 09/09/19 16:40 Completed Glucose,Critical Care Stat Lab 09/09/19 17:01 Completed Glucose,Critical Care Urgent Lab 09/09/19 17:50 Completed HCG QUALITATIVE,SERUM Stat Lab 09/09/19 16:40 Completed Lactic Acid Urgent Lab 09/09/19 16:39 Completed Lactic Acid Urgent Lab 09/09/19 18:01 Completed MAGNESIUM Stat Lab 09/09/19 16:40 Completed UA W/RFX UR CULTURE Stat Lab 09/09/19 16:40 Completed Transfer Order Routine Transfer 09/09/19 Ordered Medication Summary Generic Name Dose Route Start Last Admin Trade Name Freq PRN Reason Stop Dose Admin Insulin Human Regular 100 unit 100 mls @ 5.847 mls/hr 09/09/19 17:52 09/09/19 17:59 / Sodium Chloride IV 10/09/19 17:51 0.1 unit/kg/hr .Q17H7M PRN 5.847 mls/hr DKA/HYPERGLYCEMIA Administration Protocol 0.1 UNIT/KG/HR Sodium Chloride 1,000 mls @ 100 mls/hr 09/09/19 18:15 09/09/19 18:09 Sodium Chloride 0.9% 1000 Ml IV 10/09/19 18:14 100 mls/hr .Q10H ELOY Administration Discontinued Medications Generic Name Dose Route Start Last Admin Trade Name Freq PRN Reason Stop Dose Admin Sodium Chloride Confirm 09/09/19 16:35 Sodium Chloride 0.9% 1000 Ml Administered 09/09/19 16:36 Dose 2,000 mls @ ud .ROUTE .STK-MED ONE Sodium Chloride 1,000 mls @ 999 mls/hr 09/09/19 16:39 09/09/19 17:36 Sodium Chloride 0.9% 1000 Ml IV 09/09/19 17:39 Infused .Q1H1M STA Infusion Sodium Chloride 1,000 mls @ 999 mls/hr 09/09/19 16:53 09/09/19 17:36 Sodium Chloride 0.9% 1000 Ml IV 09/09/19 17:53 Infused .Q1H1M STA Infusion Sodium Chloride 1,000 mls @ 999 mls/hr 09/09/19 17:26 09/09/19 18:33 Sodium Chloride 0.9% 1000 Ml IV 09/09/19 18:26 Infused .Q1H1M STA Titration Sodium Chloride Confirm 09/09/19 17:24 Sodium Chloride 0.9% 1000 Ml Administered 09/09/19 17:25 Dose 1,000 mls @ ud .ROUTE .STK-MED ONE Sodium Chloride Confirm 09/09/19 17:55 Sodium Chloride 0.9% 100 Ml Ivpb Administered 09/09/19 17:56 Dose 100 mls @ ud IV .STK-MED ONE Insulin Human Regular 10 unit 09/09/19 16:39 09/09/19 17:26 Humulin R SQ 09/09/19 16:40 10 unit STAT ONE Administration Insulin Human Regular Confirm 09/09/19 17:24 Humulin R Administered 09/09/19 17:25 Dose 10 unit .ROUTE .STK-MED ONE Insulin Human Regular Confirm 09/09/19 17:55 Humulin R Administered 09/09/19 17:56 Dose 100 unit .ROUTE .STK-MED ONE Sodium Bicarbonate 100 meq 09/09/19 17:51 09/09/19 17:58 Sodium Bicarbonate 50 Meq/50 Ml Abboject IV 09/09/19 17:52 100 meq STAT ONE Administration Sodium Bicarbonate Confirm 09/09/19 17:55 Sodium Bicarbonate 50 Meq/50 Ml Abboject Administered 09/09/19 17:56 Dose 100 meq IV .STK-MED ONE Lab/Rad Data: Laboratory Result Diagrams 09/09/19 16:40 09/09/19 16:40 Laboratory Results 09/09/19 09/09/19 09/09/19 Range/Units 18:01 17:50 17:50 WBC (4.0-10.5) K/mm3 RBC (4.1-5.4) M/mm3 Hgb (12.0-16.0) gm/dl Hct (35-47) % MCV (78-100) fl MCH (26-32) pg MCHC (32-36) g/dl RDW (11.5-14.0) % Plt Count (150-450) K/mm3 MPV (7.5-11.0) fl Gran % (36.0-66.0) % Eos # (Auto) (0-0.5) Absolute Lymphs (auto) (1.0-4.6) Absolute Monos (auto) (0.0-1.3) Lymphocytes % (24.0-44.0) % Monocytes % (0.0-12.0) % Eosinophils % (0.00-5.0) % Basophils % (0.0-0.4) % Absolute Granulocytes (1.4-6.9) Basophils # (0-0.4) Puncture Site RIGHT BRACHIAL pCO2 11 L* (35-45) mmHg pO2 152 H* (75-100) mmHg Base Excess -24.2 L (-2.0-2.0) O2 Saturation 94.8 (94-100) g/dF ABG pH 7.09 L* (7.35-7.45) ABG HCO3 3.3 L* (22-28) ABG O2 Sat (Measured) 99.2 (95-100) % Graham Test NOT APPLICABLE A-a Gradient -16 a/A Ratio 1.12 Hemoglobin 12.7 Carboxyhemoglobin 3.5 (0.0-6.9) % THgb Methemoglobin 1.0 L (1.4-1.5) % Potassium 4.5 (3.5-5.1) Temperature 37.0 C POC O2 Flow Rate 21 % Sodium (137-145) mmol/L Chloride (98-107) mmol/L Carbon Dioxide (22-30) mmol/L BUN (7-17) mg/dL Creatinine (0.52-1.04) mg/dL Estimated GFR ML/MIN Glucose 685 H* (74-106) mg/dL Lactic Acid 10.7 H (0.4-2.0) Calcium (8.4-10.2) mg/dL Magnesium (1.6-2.3) mg/dL Total Bilirubin (0.2-1.3) mg/dL AST (14-36) U/L ALT (0-35) U/L Alkaline Phosphatase (38-126) U/L Serum Total Protein (6.3-8.2) g/dL Albumin (3.5-5.0) g/dL Serum , Qual (Negative) Urine Color (YELLOW) Urine Appearance (CLEAR) Urine pH (5-6) Ur Specific Webster (1.005-1.025) Urine Protein (Negative) Urine Ketones (NEGATIVE) Urine Blood (0-5) Rodney/ul Urine Nitrite (NEGATIVE) Urine Bilirubin (NEGATIVE) Urine Urobilinogen (0-1) mg/dL Ur Leukocyte Esterase (NEGATIVE) Urine WBC (Auto) (0-5) /HPF Urine RBC (Auto) (0-2) /HPF U Epithel Cells (Auto) (FEW) /HPF Urine Bacteria (Auto) (NEGATIVE) /HPF Urine Mucus (Auto) (NEGATIVE) /HPF Urine Culture Reflexed (NO) Urine Glucose (NEGATIVE) mg/dL Ethyl Alcohol (0-10) mg/dL 09/09/19 09/09/19 09/09/19 Range/Units 17:01 16:40 16:40 WBC (4.0-10.5) K/mm3 RBC (4.1-5.4) M/mm3 Hgb (12.0-16.0) gm/dl Hct (35-47) % MCV (78-100) fl MCH (26-32) pg MCHC (32-36) g/dl RDW (11.5-14.0) % Plt Count (150-450) K/mm3 MPV (7.5-11.0) fl Gran % (36.0-66.0) % Eos # (Auto) (0-0.5) Absolute Lymphs (auto) (1.0-4.6) Absolute Monos (auto) (0.0-1.3) Lymphocytes % (24.0-44.0) % Monocytes % (0.0-12.0) % Eosinophils % (0.00-5.0) % Basophils % (0.0-0.4) % Absolute Granulocytes (1.4-6.9) Basophils # (0-0.4) Puncture Site pCO2 (35-45) mmHg pO2 (75-100) mmHg Base Excess (-2.0-2.0) O2 Saturation (94-100) g/dF ABG pH (7.35-7.45) ABG HCO3 (22-28) ABG O2 Sat (Measured) (95-100) % Graham Test A-a Gradient a/A Ratio Hemoglobin Carboxyhemoglobin (0.0-6.9) % THgb Methemoglobin (1.4-1.5) % Potassium (3.5-5.1) Temperature C POC O2 Flow Rate % Sodium (137-145) mmol/L Chloride (98-107) mmol/L Carbon Dioxide (22-30) mmol/L BUN (7-17) mg/dL Creatinine (0.52-1.04) mg/dL Estimated GFR ML/MIN Glucose > 685 H* (74-106) mg/dL Lactic Acid (0.4-2.0) Calcium (8.4-10.2) mg/dL Magnesium (1.6-2.3) mg/dL Total Bilirubin (0.2-1.3) mg/dL AST (14-36) U/L ALT (0-35) U/L Alkaline Phosphatase (38-126) U/L Serum Total Protein (6.3-8.2) g/dL Albumin (3.5-5.0) g/dL Serum , Qual NEGATIVE (Negative) Urine Color YELLOW (YELLOW) Urine Appearance SLIGHTLY CLOUDY (CLEAR) Urine pH 5.0 (5-6) Ur Specific [place] 1.022 (1.005-1.025) Urine Protein NEGATIVE (Negative) Urine Ketones SMALL (NEGATIVE) Urine Blood NEGATIVE (0-5) Rodney/ul Urine Nitrite NEGATIVE (NEGATIVE) Urine Bilirubin NEGATIVE (NEGATIVE) Urine Urobilinogen NEGATIVE (0-1) mg/dL Ur Leukocyte Esterase NEGATIVE (NEGATIVE) Urine WBC (Auto) NONE (0-5) /HPF Urine RBC (Auto) NONE (0-2) /HPF U Epithel Cells (Auto) NONE (FEW) /HPF Urine Bacteria (Auto) NONE (NEGATIVE) /HPF Urine Mucus (Auto) SLIGHT (NEGATIVE) /HPF Urine Culture Reflexed ORDERED SEPARATELY (NO) Urine Glucose >=500 (NEGATIVE) mg/dL Ethyl Alcohol (0-10) mg/dL 09/09/19 09/09/19 09/09/19 Range/Units 16:40 16:40 16:39 WBC 15.7 H (4.0-10.5) K/mm3 RBC 3.72 L (4.1-5.4) M/mm3 Hgb 12.9 (12.0-16.0) gm/dl Hct 42.9 (35-47) % MCV 115.3 H (78-100) fl MCH 34.7 H (26-32) pg MCHC 30.1 L (32-36) g/dl RDW 14.1 H (11.5-14.0) % Plt Count 413 (150-450) K/mm3 MPV 11.5 H (7.5-11.0) fl Gran % 82.3 H (36.0-66.0) % Eos # (Auto) 0.05 (0-0.5) Absolute Lymphs (auto) 2.34 (1.0-4.6) Absolute Monos (auto) 0.34 (0.0-1.3) Lymphocytes % 14.9 L (24.0-44.0) % Monocytes % 2.2 (0.0-12.0) % Eosinophils % 0.3 (0.00-5.0) % Basophils % 0.3 (0.0-0.4) % Absolute Granulocytes 12.92 H (1.4-6.9) Basophils # 0.04 (0-0.4) Puncture Site RIGHT BRACHIAL pCO2 13 L* (35-45) mmHg pO2 127 H* (75-100) mmHg Base Excess -22.8 L (-2.0-2.0) O2 Saturation 97.0 (94-100) g/dF ABG pH 7.12 L* (7.35-7.45) ABG HCO3 4.2 L* (22-28) ABG O2 Sat (Measured) 99.0 (95-100) % Graham Test NOT APPLICABLE A-a Gradient 6 a/A Ratio 0.95 Hemoglobin 12.0 Carboxyhemoglobin 0.9 (0.0-6.9) % THgb Methemoglobin 1.1 L (1.4-1.5) % Potassium 4.3 4.2 (3.5-5.1) Temperature 37.0 C POC O2 Flow Rate 21 % Sodium 143 (137-145) mmol/L Chloride 110 H (98-107) mmol/L Carbon Dioxide < 5 L* (22-30) mmol/L BUN 28 H (7-17) mg/dL Creatinine 1.24 H (0.52-1.04) mg/dL Estimated GFR 52.9 ML/MIN Glucose 723 H* (74-106) mg/dL Lactic Acid 8.5 H (0.4-2.0) Calcium 8.8 (8.4-10.2) mg/dL Magnesium 2.8 H (1.6-2.3) mg/dL Total Bilirubin 0.40 (0.2-1.3) mg/dL AST 30 (14-36) U/L ALT 26 (0-35) U/L Alkaline Phosphatase 127 H (38-126) U/L Serum Total Protein 6.4 (6.3-8.2) g/dL Albumin 3.7 (3.5-5.0) g/dL Serum , Qual (Negative) Urine Color (YELLOW) Urine Appearance (CLEAR) Urine pH (5-6) Ur Specific [place] (1.005-1.025) Urine Protein (Negative) Urine Ketones (NEGATIVE) Urine Blood (0-5) Rodney/ul Urine Nitrite (NEGATIVE) Urine Bilirubin (NEGATIVE) Urine Urobilinogen (0-1) mg/dL Ur Leukocyte Esterase (NEGATIVE) Urine WBC (Auto) (0-5) /HPF Urine RBC (Auto) (0-2) /HPF U Epithel Cells (Auto) (FEW) /HPF Urine Bacteria (Auto) (NEGATIVE) /HPF Urine Mucus (Auto) (NEGATIVE) /HPF Urine Culture Reflexed (NO) Urine Glucose (NEGATIVE) mg/dL Ethyl Alcohol < 10 (0-10) mg/dL - Progress Progress Note: 09/09/19 16:52 This is a 34-year-old patient brought to the ED for management of hyperglycemia. -She is responding to verbal stimulus -Vital signs stable on arrival - Labs ordered: CBC, CMP, UA, UDS, betahydroxybutyrate, lactic acid, ABG, bedside glucose Results: Imaging: CXR portable Medications/fluids : IVF bolus x 2, 10U insulin 09/09/19 17:57 Labs ordered: CBC, CMP, UA, ABG, betahydroxybutyrate, urine hcg ( negative) Results: ABG initial showed Ph 7.12, pco2- 13, po2- 127, hco3- 4.2, potassium 4.2, glucose 685. After 2 IVF boluses, 10 U insulin- repeat ABG worsened with ph 7.09, pco2 11, hco3 3.3, K + 4.5 . glucose 685, lA- 10.7 - insulin drip started along with 2 amp bicarb. CBC- leukocytosis with WBC ct 15.7, CMP- Cr 1.24, Na 143, Potassium 4.3 UA- ketones+, No UTI Imaging: CXr- No acute cardiopulmonary abnormality Medications/fluids : 3 IVF boluses, 10U regular insulin on arrival, is on insulin drip and maintenance fluids 09/09/19 18:29 Given severe DKA, discussed with Dr. Bryant who has agreed to take over further care. Discussed with : Mark Will see patient in: hospital (full admit) - Departure Departure Disposition: In-patient Admission Clinical Impression: DKA (diabetic ketoacidoses) Condition: Fair Critical Care Time: Yes Critical Care Time(excluding separately billable procedures): Critical 30-74 mins Referrals: FROILAN FRANCO [Primary Care Provider] -
[2019-09-09 17:02] LABS: A-aADO2 6; ABG POTASSIUM 4.2 (3.5-5.1); ARTERIAL BLOOD GAS BASE EXCESS -22.8 (-2.0-2.0); ARTERIAL BLOOD GAS FIO2 21 %; ARTERIAL BLOOD GAS PO2 127 mmHg (75-100); CARBOXYHEMOGLOBIN 0.9 % THgb (0.0-6.9); HCO3- 4.2 (22-28); Lactic Acid 8.5 (0.4-2.0); Methhemoglobin 1.1 % (1.4-1.5); paO2 pAO1 0.95
[2019-09-09 17:08] LABS: ARTERIAL BLOOD GAS PCO2 13 mmHg (35-45); ARTERIAL BLOOD GAS pH 7.12 (7.35-7.45)
[2019-09-09 17:09] LABS: ABG SITE RIGHT BRACHIAL
--- NOTE | 2019-09-09 17:10 | XRAY ---
Indication: Diabetic ketoacidosis. Comparison: March 08, 2019. Portable chest again demonstrates normal heart, lungs, and bony thorax.
[2019-09-09 17:19] LABS: Appearance SLIGHTLY CLOUDY (CLEAR); Bilirubin NEGATIVE (NEGATIVE); Blood NEGATIVE Ery/ul (0-5); Glucose >=500 mg/dL (NEGATIVE); Ketones SMALL (NEGATIVE); Leukocyte Esterase NEGATIVE (NEGATIVE); Mucus SLIGHT /HPF (NEGATIVE); Nitrite NEGATIVE (NEGATIVE); Protein,Urine Dip NEGATIVE (Negative); Specific Gravity 1.022 (1.005-1.025); Urobilinogen NEGATIVE mg/dL (0-1)
[2019-09-09] MEDS ORDERED: Sodium Chloride 0.9% 1000 ML 1,000 ML ONE ×2 (17:24→18:08)
[2019-09-09] MEDS ORDERED: HUMULIN R ONE ×2 (17:24→17:55)
[2019-09-09] MEDS ORDERED: SODIUM BICARBONATE 50 MEQ/50 ML ABBOJECT IV ONE ×2 (17:51→17:55)
[2019-09-09] MEDS ORDERED: Sodium Chloride 0.9% 100 ML IVPB 100 ML IV ONE (17:55)
[2019-09-09 17:57] LABS: Absolute Neutrophil Ct (ANC) 12.92 (1.4-6.9); BASOPHIL % 0.3 % (0.0-0.4); Basophil (Absolute #) 0.04 (0-0.4); Eosinophil % 0.3 % (0.00-5.0); Eosinophil (Absolute #) 0.05 (0-0.5); Hematocrit 42.9 % (35-47); Hemoglobin 12.9 gm/dl (12.0-16.0); Lymphocyte (Absolute #) 2.34 (1.0-4.6); Lymphocytes % 14.9 % (24.0-44.0); Mean Cell Volume 115.3 fl (78-100); Mean Corpuscular Hemoglobin 34.7 pg (26-32); Mean Corpuscular Hgb Concent. 30.1 g/dl (32-36); Mean Platelet Volume 11.5 fl (7.5-11.0); Monocyte (Absolute #) 0.34 (0.0-1.3); Monocytes % 2.2 % (0.0-12.0); Neutrophil % 82.3 % (36.0-66.0); Platelet Count 413 K/mm3 (150-450); Red Blood Count 3.72 M/mm3 (4.1-5.4); Red Cell Distribution Width 14.1 % (11.5-14.0); White Blood Count 15.7 K/mm3 (4.0-10.5)
[2019-09-09] MEDS: HUMULIN R 100 UNIT in Sodium Chloride 0.9% 100 ML IVPB 100 ML IV PRN (17:59)
[2019-09-09 18:03] LABS: A-aADO2 -16; ABG HEMOGLOBIN 12.7; ABG POTASSIUM 4.5 (3.5-5.1); ARTERIAL BLD GAS O2 SATURATION 99.2 % (95-100); ARTERIAL BLOOD GAS BASE EXCESS -24.2 (-2.0-2.0); ARTERIAL BLOOD GAS FIO2 21 %; ARTERIAL BLOOD GAS PO2 152 mmHg (75-100); CARBOXYHEMOGLOBIN 3.5 % THgb (0.0-6.9); HCO3- 3.3 (22-28); HGB O2 SAT 94.8 g/dF (94-100); paO2 pAO1 1.12
[2019-09-09 18:04] LABS: ARTERIAL BLOOD GAS pH 7.09 (7.35-7.45)
[2019-09-09 18:05] LABS: ABG SITE RIGHT BRACHIAL; ARTERIAL BLOOD GAS PCO2 11 mmHg (35-45)
[2019-09-09 18:13] LABS: ALBUMIN 3.7 g/dL (3.5-5.0); ALKALINE PHOSPHATASE 127 U/L (38-126); BLOOD UREA NITROGEN 28 mg/dL (7-17); CHLORIDE 110 mmol/L (98-107); Calcium 8.8 mg/dL (8.4-10.2); Creatinine 1 1.24 mg/dL (0.52-1.04); MAGNESIUM 2.8 mg/dL (1.6-2.3); Potassium 4.3 mmol/L (3.5-5.1); SGOT/AST 30 U/L (14-36); SODIUM 143 mmol/L (137-145); Total Protein 6.4 g/dL (6.3-8.2)
[2019-09-09] MEDS ORDERED: Sodium Chloride 0.9% 1000 ML 1,000 ML IV SCH ×2 (18:15→19:21)
[2019-09-09 18:20] LABS: SGPT/ALT 26 U/L (0-35)
[2019-09-09 18:23] LABS: Carbon Dioxide < 5 mmol/L (22-30); ETHYL ALCOHOL < 10 mg/dL (0-10); Glucose 723 mg/dL (74-106)
[2019-09-09] MEDS ORDERED: XANAX 1 MG PO PRN (20:50)
[2019-09-09] MEDS: SODIUM CHLORIDE 0.45% W/ 20 mEq KCL 1,000 ML IV SCH (21:39)
[2019-09-09 22:21] LABS: Amphetamine,Urine NEGATIVE (NEGATIVE); Barbiturate,Urine NEGATIVE (NEGATIVE); Benzodiazepine,Urine NEGATIVE (NEGATIVE); Cocaine,Urine NEGATIVE (NEGATIVE); Methadone,Urine NEGATIVE (NEGATIVE); Opiate,Urine NEGATIVE (NEGATIVE); PCP,Urine NEGATIVE (NEGATIVE); THC,Urine NEGATIVE (NEGATIVE)
[2019-09-09 22:30] LABS: A-aADO2 38; ABG HEMOGLOBIN 11.9; ABG POTASSIUM 3.9 (3.5-5.1); ARTERIAL BLD GAS O2 SATURATION 97.2 % (95-100); ARTERIAL BLOOD GAS BASE EXCESS -2.1 (-2.0-2.0); ARTERIAL BLOOD GAS FIO2 21 %; ARTERIAL BLOOD GAS PCO2 30 mmHg (35-45); ARTERIAL BLOOD GAS PO2 74 mmHg (75-100); ARTERIAL BLOOD GAS pH 7.45 (7.35-7.45); HCO3- 20.9 (22-28); HGB O2 SAT 94.9 g/dF (94-100); Methhemoglobin 1.4 % (1.4-1.5); paO2 pAO1 0.66
[2019-09-09 22:31] LABS: ABG SITE LEFT BRACHIAL
[2019-09-09 22:38] LABS: BLOOD UREA NITROGEN 26 mg/dL (7-17); CHLORIDE 117 mmol/L (98-107); Calcium 9.2 mg/dL (8.4-10.2); Carbon Dioxide 21 mmol/L (22-30); Creatinine 1 0.89 mg/dL (0.52-1.04); Glucose 160 mg/dL (74-106); Potassium 3.9 mmol/L (3.5-5.1); SODIUM 148 mmol/L (137-145)
[2019-09-10] MEDS: Zofran 4 MG/2 ML VIAL IV PRN ×2 (01:15→08:15)
[2019-09-10] MEDS: HUMALOG SQ PRN ×5 (01:26→16:26)
[2019-09-10 02:34] LABS: ANION GAP 14.9 MEQ/L (5-15); BLOOD UREA NITROGEN 23 mg/dL (7-17); CHLORIDE 115 mmol/L (98-107); Carbon Dioxide 22 mmol/L (22-30); Creatinine 1 0.78 mg/dL (0.52-1.04); Glucose 237 mg/dL (74-106); Potassium 4.3 mmol/L (3.5-5.1); SODIUM 147 mmol/L (137-145)
[2019-09-10 02:48] LABS: ARTERIAL BLD GAS O2 SATURATION 97.9 % (95-100); ARTERIAL BLOOD GAS BASE EXCESS -1.7 (-2.0-2.0); ARTERIAL BLOOD GAS PCO2 34 mmHg (35-45); ARTERIAL BLOOD GAS PO2 80 mmHg (75-100); ARTERIAL BLOOD GAS pH 7.42 (7.35-7.45); HCO3- 22.1 (22-28)
[2019-09-10 02:49] LABS: A-aADO2 27; ABG HEMOGLOBIN 12.4; ABG POTASSIUM 4.2 (3.5-5.1); ARTERIAL BLOOD GAS FIO2 21 %; CARBON DIOXIDE 23 mEq/L (23-27); HGB O2 SAT 95.9 g/dF (94-100); paO2 pAO1 0.75
[2019-09-10 02:50] LABS: ABG SITE RIGHT BRACHIAL
[2019-09-10] MEDS: SODIUM CHLORIDE 0.45% W/ 20 mEq KCL 1,000 ML IV SCH (04:27)
[2019-09-10 05:58] LABS: ARTERIAL BLOOD GAS PCO2 29 mmHg (35-45); ARTERIAL BLOOD GAS PO2 151 mmHg (75-100); ARTERIAL BLOOD GAS pH 7.46 (7.35-7.45)
[2019-09-10 05:59] LABS: A-aADO2 -38; ABG HEMOGLOBIN 11.7; ABG POTASSIUM 5.4 (3.5-5.1); ARTERIAL BLD GAS O2 SATURATION 99 % (95-100); ARTERIAL BLOOD GAS BASE EXCESS -2.1 (-2.0-2.0); CARBON DIOXIDE 21 mEq/L (23-27); HCO3- 20 (22-28); Methhemoglobin 0.8 % (1.4-1.5); paO2 pAO1 1.34
[2019-09-10 06:00] LABS: ABG SITE RIGHT BRACHIAL; ARTERIAL BLOOD GAS FIO2 21 %; CARBOXYHEMOGLOBIN 3.8 % THgb (0.0-6.9); HGB O2 SAT 94.9 g/dF (94-100)
[2019-09-10] MEDS ORDERED: D5W/0.45NS W/ 20mEq KCl 1000 ML 1,000 ML IV ONE (06:25)
[2019-09-10 06:26] LABS: Hematocrit 34.4 % (35-47); Hemoglobin 11.3 gm/dl (12.0-16.0); Mean Corpuscular Hemoglobin 33.8 pg (26-32); Mean Corpuscular Hgb Concent. 32.8 g/dl (32-36); Mean Platelet Volume 10.2 fl (7.5-11.0); Platelet Count 356 K/mm3 (150-450); Red Blood Count 3.34 M/mm3 (4.1-5.4); Red Cell Distribution Width 13.8 % (11.5-14.0); White Blood Count 12.3 K/mm3 (4.0-10.5)
[2019-09-10 06:31] LABS: ANION GAP 13.8 MEQ/L (5-15); BLOOD UREA NITROGEN 21 mg/dL (7-17); CHLORIDE 114 mmol/L (98-107); Calcium 8.7 mg/dL (8.4-10.2); Carbon Dioxide 21 mmol/L (22-30); Creatinine 1 0.78 mg/dL (0.52-1.04); Glucose 296 mg/dL (74-106); Potassium 4.6 mmol/L (3.5-5.1); SODIUM 145 mmol/L (137-145)
[2019-09-10 08:43] LABS: ARTERIAL BLOOD GAS pH 7.44 (7.35-7.45)
[2019-09-10 08:44] LABS: ARTERIAL BLD GAS O2 SATURATION 98.9 % (95-100); ARTERIAL BLOOD GAS PCO2 24 mmHg (35-45); ARTERIAL BLOOD GAS PO2 91 mmHg (75-100); HCO3- 16.3 (22-28)
[2019-09-10 08:46] LABS: A-aADO2 29; ABG HEMOGLOBIN 12.4; ARTERIAL BLOOD GAS FIO2 21 %; HGB O2 SAT 96.8 g/dF (94-100); Methhemoglobin 0.9 % (1.4-1.5)
[2019-09-10 08:47] LABS: ABG SITE LEFT BRACHIAL; CARBOXYHEMOGLOBIN 1.1 % THgb (0.0-6.9)
[2019-09-10 10:20] LABS: ANION GAP 10.4 MEQ/L (5-15); BLOOD UREA NITROGEN 18 mg/dL (7-17); CHLORIDE 115 mmol/L (98-107); Carbon Dioxide 25 mmol/L (22-30); Glucose 141 mg/dL (74-106); SODIUM 146 mmol/L (137-145)
[2019-09-10] MEDS: HUMULIN R 100 UNIT in Sodium Chloride 0.9% 100 ML IVPB 100 ML IV PRN ×2 (11:00→20:05)
[2019-09-10 11:26] LABS: Folate (Folic Acid) 5.34 ng/mL (2.76 - >20)
[2019-09-10] MEDS ORDERED: TRANDATE 20 MG/5 ML SYRINGE IV PRN (12:45)
[2019-09-10] MEDS ORDERED: ROCEPHIN 1 Gm-D5w 50 ml Bag** 1 G/50 ML IVPB IV SCH (13:00)
[2019-09-10] MEDS: D5W/0.45NS W/ 20mEq KCl 1000 ML 1,000 ML IV SCH ×2 (13:20→23:04)
[2019-09-10 13:44] LABS: ANION GAP 13.6 MEQ/L (5-15); BLOOD UREA NITROGEN 17 mg/dL (7-17); CHLORIDE 112 mmol/L (98-107); Calcium 9.1 mg/dL (8.4-10.2); Carbon Dioxide 24 mmol/L (22-30); Creatinine 1 0.72 mg/dL (0.52-1.04); Glucose 282 mg/dL (74-106); Potassium 4.3 mmol/L (3.5-5.1); SODIUM 146 mmol/L (137-145)
[2019-09-10] MEDS ORDERED: TRANDATE 20 MG/5 ML SYRINGE IV ONE (15:49)
[2019-09-10] MEDS ORDERED: Transderm Scop 1.5MG Patch TOP ONE (16:15)
--- NOTE | 2019-09-10 17:11 | XRAY ---
Indication: Loss of consciousness. Altered mental status/memory loss. Multiple contiguous axial images obtained through the head without contrast. Comparison: December 28, 2018. Again normal appearing brain parenchyma, ventricles, and bony calvarium. Visualized paranasal sinuses and mastoid air cells are clear. Impression: Continued normal CT head without contrast exam. Comment: Preliminary interpretation was made by [facility]. No critical discrepancy.
[2019-09-10 19:13] LABS: ANION GAP 16.6 MEQ/L (5-15); BLOOD UREA NITROGEN 16 mg/dL (7-17); CHLORIDE 114 mmol/L (98-107); Calcium 9.2 mg/dL (8.4-10.2); Carbon Dioxide 19 mmol/L (22-30); Creatinine 1 0.67 mg/dL (0.52-1.04); Glucose 234 mg/dL (74-106); Potassium 4.2 mmol/L (3.5-5.1); SODIUM 146 mmol/L (137-145)
[2019-09-10] MEDS ORDERED: Sodium Chloride 0.9% 100 ML IVPB 100 ML IV ONE (19:35)
[2019-09-10] MEDS ORDERED: HUMULIN R ONE (19:35)
--- NOTE | 2019-09-10 20:29 | PCM.HP ---
History of Present Illness - Chief Complaint Chief Complaint: DKA Date: 09/10/19 History of Present Illness: is a 34 year old female. Patient was arousable but was not able to give a hx this am. HPI is gathered from medical record and nursing staff. - Review of Systems All Other Systems: Unable due to condition (Patient is somulent and unable to provide hx. ) Medications & Allergies Home Medications: Home Medication List Alprazolam 0.5 mg [xanAX 0.5 MG] 0.5 mg PO DAILY 09/10/19 [History Confirmed 09/10/19] Insulin Lispro [Humalog Kwikpen] 12 unit SQ AC 09/10/19 [History Confirmed 09/10/19] Medroxyprogesterone Acet [Depo-Provera] 150 mg IM Q90D 09/10/19 [History Confirmed 09/10/19] Allergies/Adverse Reactions: Allergies Allergy/AdvReac Type Severity Reaction Status Date / Time No Known Drug Allergies Allergy Verified 09/09/19 17:06 - Past Medical History Past Medical History: Yes Neurological History: Peripheral Neuropathy ENT History: No Pertinent History Cardiac History: No Pertinent History Respiratory History: No Pertinent History Endocrine Medical History: Diabetes Type I Musculoskelatal History: No Pertinent History GI Medical History: No Pertinent History History: No Pertinent History Pyscho-Social History: Anxiety, Depression Reproductive Disorders: No Pertinent History Comment: was taken off of diabetic pump and put on sub q insulin coverage- 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);carpal tunnel bilat - Female History Hx Last Menstrual Period: unk Are you now?: No - Past Surgical History Past Surgical History: Yes Neuro Surgical History: No Pertinent History Cardiac History: No Pertinent History Respiratory Surgery: No Pertinent History GI Surgical History: No Pertinent History Genitourinary Surgical Hx: No Pertinent History Musculskeletal Surgical Hx: No Pertinent History Female Surgical History: Dilation & Curettage, Section Other Surgical History: cs x2 - Social History Smoking Status: Unknown if ever smoked How long have you smoked: years Exposure to second hand smoke: Yes Alcohol: None Drug Use: none Significant Family History: heart disease, diabetes - Physical Exam Vital Signs: Vital Signs - 24 hr Temp Pulse Resp BP Pulse Ox 09/10/19 19:50 100.5 F 122 H 17 142/64 97 07/18/20 16:00 98.5 F 119 H 14 167/84 98 09/10/19 12:00 99.1 F 132 H 12 169/89 96 09/10/19 08:19 99.7 F 126 H 25 H 173/93 98 09/10/19 08:00 126 H 25 H 09/10/19 07:45 99.0 F 134 H 14 136/66 95 09/10/19 04:00 98.9 F 126 H 25 H 130/63 96 09/09/19 23:59 125 H 09/09/19 23:55 16 09/09/19 23:23 99.3 F 125 H 16 105/60 98 General Appearance: mild distress, thin Neurologic Exam: depressed mood/affect, other (Arousable and was able to state where she was), No normal mood/affect, No disoriented, No confusion Respiratory Exam: normal breath sounds, lungs clear, No respiratory distress, No diminished breath sounds Cardiovascular Exam: tachycardia, No murmur, No friction rub, No gallop Gastrointestinal/Abdomen Exam: soft, normal bowel sounds, No tenderness, No distention Pelvic Exam: not done Rectal Exam: not done Extremity Exam: No pedal edema, No swelling Skin Exam: normal color, warm, dry, No rash Results - Labs Lab/Micro Results: Accuchecks Accucheck Value: 219 Accucheck Value: 120 Accucheck Value: 151 Accucheck Value: 237 Accucheck Value: 227 Lab Results-Last 24 Hours 09/09/19 09/09/19 09/09/19 Range/Units 20:49 21:25 22:15 WBC (4.0-10.5) K/mm3 RBC (4.1-5.4) M/mm3 Hgb (12.0-16.0) gm/dl Hct (35-47) % MCV (78-100) fl MCH (26-32) pg MCHC (32-36) g/dl RDW (11.5-14.0) % Plt Count (150-450) K/mm3 MPV (7.5-11.0) fl Puncture Site pCO2 (35-45) mmHg pO2 (75-100) mmHg Base Excess (-2.0-2.0) O2 Saturation (94-100) g/dF ABG pH (7.35-7.45) ABG HCO3 (22-28) ABG O2 Sat (Measured) (95-100) % Graham Test A-a Gradient a/A Ratio Hemoglobin Carboxyhemoglobin (0.0-6.9) % THgb Methemoglobin (1.4-1.5) % Glucose 208 H 160 H (70-110) Temperature C POC O2 Flow Rate % Sodium 148 H (137-145) mmol/L Potassium 3.9 (3.5-5.1) mmol/L Chloride 117 H (98-107) mmol/L Carbon Dioxide 21 L (22-30) mmol/L Anion Gap 14.0 (5-15) MEQ/L BUN 26 H (7-17) mg/dL Creatinine 0.89 (0.52-1.04) mg/dL Estimated GFR > 60.0 ML/MIN Hemoglobin A1c (4.5-6.0) % Lactic Acid (0.4-2.0) Calcium 9.2 (8.4-10.2) mg/dL Troponin I (0.000-0.034) ng/mL Vitamin B12 (239-931) pg/mL Folic Acid (2.76 - >20) ng/mL Urine Opiates Level NEGATIVE (NEGATIVE) Ur Methadone NEGATIVE (NEGATIVE) Urine Barbiturates NEGATIVE (NEGATIVE) Ur Phencyclidine (PCP) NEGATIVE (NEGATIVE) Urine Amphetamine NEGATIVE (NEGATIVE) U Benzodiazepine Level NEGATIVE (NEGATIVE) Urine Cocaine NEGATIVE (NEGATIVE) Urine Marijuana (THC) NEGATIVE (NEGATIVE) 09/09/19 09/09/19 09/09/19 Range/Units 22:18 22:18 22:18 WBC (4.0-10.5) K/mm3 RBC (4.1-5.4) M/mm3 Hgb (12.0-16.0) gm/dl Hct (35-47) % MCV (78-100) fl MCH (26-32) pg MCHC (32-36) g/dl RDW (11.5-14.0) % Plt Count (150-450) K/mm3 MPV (7.5-11.0) fl Puncture Site LEFT BRACHIAL pCO2 30 L (35-45) mmHg pO2 74 L (75-100) mmHg Base Excess -2.1 L (-2.0-2.0) O2 Saturation 94.9 (94-100) g/dF ABG pH 7.45 (7.35-7.45) ABG HCO3 20.9 L (22-28) ABG O2 Sat (Measured) 97.2 (95-100) % Graham Test NOT APPLICABLE A-a Gradient 38 a/A Ratio 0.66 Hemoglobin 11.9 Carboxyhemoglobin 1.0 (0.0-6.9) % THgb Methemoglobin 1.4 (1.4-1.5) % Glucose 161 H (70-110) Temperature 37.0 C POC O2 Flow Rate 21 % Sodium (137-145) mmol/L Potassium 3.9 (3.5-5.1) mmol/L Chloride (98-107) mmol/L Carbon Dioxide (22-30) mmol/L Anion Gap (5-15) MEQ/L BUN (7-17) mg/dL Creatinine (0.52-1.04) mg/dL Estimated GFR ML/MIN Hemoglobin A1c (4.5-6.0) % Lactic Acid 7.8 H (0.4-2.0) Calcium (8.4-10.2) mg/dL Troponin I (0.000-0.034) ng/mL Vitamin B12 (239-931) pg/mL Folic Acid (2.76 - >20) ng/mL Urine Opiates Level (NEGATIVE) Ur Methadone (NEGATIVE) Urine Barbiturates (NEGATIVE) Ur Phencyclidine (PCP) (NEGATIVE) Urine Amphetamine (NEGATIVE) U Benzodiazepine Level (NEGATIVE) Urine Cocaine (NEGATIVE) Urine Marijuana (THC) (NEGATIVE) 09/09/19 09/10/19 09/10/19 Range/Units 23:25 00:15 02:15 WBC (4.0-10.5) K/mm3 RBC (4.1-5.4) M/mm3 Hgb (12.0-16.0) gm/dl Hct (35-47) % MCV (78-100) fl MCH (26-32) pg MCHC (32-36) g/dl RDW (11.5-14.0) % Plt Count (150-450) K/mm3 MPV (7.5-11.0) fl Puncture Site pCO2 (35-45) mmHg pO2 (75-100) mmHg Base Excess (-2.0-2.0) O2 Saturation (94-100) g/dF ABG pH (7.35-7.45) ABG HCO3 (22-28) ABG O2 Sat (Measured) (95-100) % Graham Test A-a Gradient a/A Ratio Hemoglobin Carboxyhemoglobin (0.0-6.9) % THgb Methemoglobin (1.4-1.5) % Glucose 154 H 194 H 237 H (70-110) Temperature C POC O2 Flow Rate % Sodium 147 H (137-145) mmol/L Potassium 4.3 (3.5-5.1) mmol/L Chloride 115 H (98-107) mmol/L Carbon Dioxide 22 (22-30) mmol/L Anion Gap 14.9 (5-15) MEQ/L BUN 23 H (7-17) mg/dL Creatinine 0.78 (0.52-1.04) mg/dL Estimated GFR > 60.0 ML/MIN Hemoglobin A1c (4.5-6.0) % Lactic Acid (0.4-2.0) Calcium 9.0 (8.4-10.2) mg/dL Troponin I (0.000-0.034) ng/mL Vitamin B12 (239-931) pg/mL Folic Acid (2.76 - >20) ng/mL Urine Opiates Level (NEGATIVE) Ur Methadone (NEGATIVE) Urine Barbiturates (NEGATIVE) Ur Phencyclidine (PCP) (NEGATIVE) Urine Amphetamine (NEGATIVE) U Benzodiazepine Level (NEGATIVE) Urine Cocaine (NEGATIVE) Urine Marijuana (THC) (NEGATIVE) 09/10/19 09/10/19 09/10/19 Range/Units 02:40 05:00 05:45 WBC (4.0-10.5) K/mm3 RBC (4.1-5.4) M/mm3 Hgb (12.0-16.0) gm/dl Hct (35-47) % MCV (78-100) fl MCH (26-32) pg MCHC (32-36) g/dl RDW (11.5-14.0) % Plt Count (150-450) K/mm3 MPV (7.5-11.0) fl Puncture Site RIGHT BRACHIAL pCO2 34 L (35-45) mmHg pO2 80 (75-100) mmHg Base Excess -1.7 (-2.0-2.0) O2 Saturation 95.9 (94-100) g/dF ABG pH 7.42 (7.35-7.45) ABG HCO3 22.1 (22-28) ABG O2 Sat (Measured) 97.9 (95-100) % Graham Test NOT APPLICABLE A-a Gradient 27 a/A Ratio 0.75 Hemoglobin 12.4 Carboxyhemoglobin 1.0 (0.0-6.9) % THgb Methemoglobin 1.0 L (1.4-1.5) % Glucose 296 H (70-110) Temperature C POC O2 Flow Rate 21 % Sodium 145 (137-145) mmol/L Potassium 4.2 4.6 (3.5-5.1) mmol/L Chloride 114 H (98-107) mmol/L Carbon Dioxide 23 21 L (22-30) mmol/L Anion Gap 13.8 (5-15) MEQ/L BUN 21 H (7-17) mg/dL Creatinine 0.78 (0.52-1.04) mg/dL Estimated GFR > 60.0 ML/MIN Hemoglobin A1c 10.72 H (4.5-6.0) % Lactic Acid (0.4-2.0) Calcium 8.7 (8.4-10.2) mg/dL Troponin I (0.000-0.034) ng/mL Vitamin B12 (239-931) pg/mL Folic Acid (2.76 - >20) ng/mL Urine Opiates Level (NEGATIVE) Ur Methadone (NEGATIVE) Urine Barbiturates (NEGATIVE) Ur Phencyclidine (PCP) (NEGATIVE) Urine Amphetamine (NEGATIVE) U Benzodiazepine Level (NEGATIVE) Urine Cocaine (NEGATIVE) Urine Marijuana (THC) (NEGATIVE) 09/10/19 09/10/19 09/10/19 Range/Units 05:45 05:55 05:55 WBC 12.3 H (4.0-10.5) K/mm3 RBC 3.34 L (4.1-5.4) M/mm3 Hgb 11.3 L (12.0-16.0) gm/dl Hct 34.4 L (35-47) % MCV 103.0 H D (78-100) fl MCH 33.8 H (26-32) pg MCHC 32.8 (32-36) g/dl RDW 13.8 (11.5-14.0) % Plt Count 356 (150-450) K/mm3 MPV 10.2 (7.5-11.0) fl Puncture Site RIGHT BRACHIAL pCO2 29 L (35-45) mmHg pO2 151 H* (75-100) mmHg Base Excess -2.1 L (-2.0-2.0) O2 Saturation 94.9 (94-100) g/dF ABG pH 7.46 H (7.35-7.45) ABG HCO3 20 L (22-28) ABG O2 Sat (Measured) 99 (95-100) % Graham Test NOT APPLICABLE A-a Gradient -38 a/A Ratio 1.34 Hemoglobin 11.7 Carboxyhemoglobin 3.8 (0.0-6.9) % THgb Methemoglobin 0.8 L (1.4-1.5) % Glucose (70-110) Temperature C POC O2 Flow Rate 21 % Sodium (137-145) mmol/L Potassium 5.4 H (3.5-5.1) mmol/L Chloride (98-107) mmol/L Carbon Dioxide 21 L (22-30) mmol/L Anion Gap (5-15) MEQ/L BUN (7-17) mg/dL Creatinine (0.52-1.04) mg/dL Estimated GFR ML/MIN Hemoglobin A1c (4.5-6.0) % Lactic Acid 1.5 (0.4-2.0) Calcium (8.4-10.2) mg/dL Troponin I (0.000-0.034) ng/mL Vitamin B12 (239-931) pg/mL Folic Acid (2.76 - >20) ng/mL Urine Opiates Level (NEGATIVE) Ur Methadone (NEGATIVE) Urine Barbiturates (NEGATIVE) Ur Phencyclidine (PCP) (NEGATIVE) Urine Amphetamine (NEGATIVE) U Benzodiazepine Level (NEGATIVE) Urine Cocaine (NEGATIVE) Urine Marijuana (THC) (NEGATIVE) 09/10/19 09/10/19 09/10/19 Range/Units 06:00 08:00 08:00 WBC (4.0-10.5) K/mm3 RBC (4.1-5.4) M/mm3 Hgb (12.0-16.0) gm/dl Hct (35-47) % MCV (78-100) fl MCH (26-32) pg MCHC (32-36) g/dl RDW (11.5-14.0) % Plt Count (150-450) K/mm3 MPV (7.5-11.0) fl Puncture Site LEFT BRACHIAL pCO2 24 L (35-45) mmHg pO2 91 (75-100) mmHg Base Excess -6.0 L (-2.0-2.0) O2 Saturation 96.8 (94-100) g/dF ABG pH 7.44 (7.35-7.45) ABG HCO3 16.3 L* (22-28) ABG O2 Sat (Measured) 98.9 (95-100) % Graham Test NOT APPLICABLE A-a Gradient 29 a/A Ratio Hemoglobin 12.4 Carboxyhemoglobin 1.1 (0.0-6.9) % THgb Methemoglobin 0.9 L (1.4-1.5) % Glucose 191 H (70-110) Temperature C POC O2 Flow Rate 21 % Sodium (137-145) mmol/L Potassium 4.0 (3.5-5.1) mmol/L Chloride (98-107) mmol/L Carbon Dioxide (22-30) mmol/L Anion Gap (5-15) MEQ/L BUN (7-17) mg/dL Creatinine (0.52-1.04) mg/dL Estimated GFR ML/MIN Hemoglobin A1c (4.5-6.0) % Lactic Acid (0.4-2.0) Calcium (8.4-10.2) mg/dL Troponin I (0.000-0.034) ng/mL Vitamin B12 315 (239-931) pg/mL Folic Acid 5.34 (2.76 - >20) ng/mL Urine Opiates Level (NEGATIVE) Ur Methadone (NEGATIVE) Urine Barbiturates (NEGATIVE) Ur Phencyclidine (PCP) (NEGATIVE) Urine Amphetamine (NEGATIVE) U Benzodiazepine Level (NEGATIVE) Urine Cocaine (NEGATIVE) Urine Marijuana (THC) (NEGATIVE) 09/10/19 09/10/19 09/10/19 Range/Units 08:00 10:07 12:00 WBC (4.0-10.5) K/mm3 RBC (4.1-5.4) M/mm3 Hgb (12.0-16.0) gm/dl Hct (35-47) % MCV (78-100) fl MCH (26-32) pg MCHC (32-36) g/dl RDW (11.5-14.0) % Plt Count (150-450) K/mm3 MPV (7.5-11.0) fl Puncture Site pCO2 (35-45) mmHg pO2 (75-100) mmHg Base Excess (-2.0-2.0) O2 Saturation (94-100) g/dF ABG pH (7.35-7.45) ABG HCO3 (22-28) ABG O2 Sat (Measured) (95-100) % Graham Test A-a Gradient a/A Ratio Hemoglobin Carboxyhemoglobin (0.0-6.9) % THgb Methemoglobin (1.4-1.5) % Glucose 141 H 127 H (70-110) Temperature C POC O2 Flow Rate % Sodium 146 H (137-145) mmol/L Potassium 4.0 (3.5-5.1) mmol/L Chloride 115 H (98-107) mmol/L Carbon Dioxide 25 (22-30) mmol/L Anion Gap 10.4 (5-15) MEQ/L BUN 18 H (7-17) mg/dL Creatinine 0.70 (0.52-1.04) mg/dL Estimated GFR > 60.0 ML/MIN Hemoglobin A1c (4.5-6.0) % Lactic Acid 8.9 H (0.4-2.0) Calcium 9.0 (8.4-10.2) mg/dL Troponin I (0.000-0.034) ng/mL Vitamin B12 (239-931) pg/mL Folic Acid (2.76 - >20) ng/mL Urine Opiates Level (NEGATIVE) Ur Methadone (NEGATIVE) Urine Barbiturates (NEGATIVE) Ur Phencyclidine (PCP) (NEGATIVE) Urine Amphetamine (NEGATIVE) U Benzodiazepine Level (NEGATIVE) Urine Cocaine (NEGATIVE) Urine Marijuana (THC) (NEGATIVE) 09/10/19 09/10/19 09/10/19 Range/Units 13:20 13:34 16:00 WBC (4.0-10.5) K/mm3 RBC (4.1-5.4) M/mm3 Hgb (12.0-16.0) gm/dl Hct (35-47) % MCV (78-100) fl MCH (26-32) pg MCHC (32-36) g/dl RDW (11.5-14.0) % Plt Count (150-450) K/mm3 MPV (7.5-11.0) fl Puncture Site pCO2 (35-45) mmHg pO2 (75-100) mmHg Base Excess (-2.0-2.0) O2 Saturation (94-100) g/dF ABG pH (7.35-7.45) ABG HCO3 (22-28) ABG O2 Sat (Measured) (95-100) % Graham Test A-a Gradient a/A Ratio Hemoglobin Carboxyhemoglobin (0.0-6.9) % THgb Methemoglobin (1.4-1.5) % Glucose 282 H 332 H (70-110) Temperature C POC O2 Flow Rate % Sodium 146 H (137-145) mmol/L Potassium 4.3 (3.5-5.1) mmol/L Chloride 112 H (98-107) mmol/L Carbon Dioxide 24 (22-30) mmol/L Anion Gap 13.6 (5-15) MEQ/L BUN 17 (7-17) mg/dL Creatinine 0.72 (0.52-1.04) mg/dL Estimated GFR > 60.0 ML/MIN Hemoglobin A1c (4.5-6.0) % Lactic Acid (0.4-2.0) Calcium 9.1 (8.4-10.2) mg/dL Troponin I < 0.012 (0.000-0.034) ng/mL Vitamin B12 (239-931) pg/mL Folic Acid (2.76 - >20) ng/mL Urine Opiates Level (NEGATIVE) Ur Methadone (NEGATIVE) Urine Barbiturates (NEGATIVE) Ur Phencyclidine (PCP) (NEGATIVE) Urine Amphetamine (NEGATIVE) U Benzodiazepine Level (NEGATIVE) Urine Cocaine (NEGATIVE) Urine Marijuana (THC) (NEGATIVE) 09/10/19 09/10/19 09/10/19 Range/Units 16:26 18:40 18:40 WBC (4.0-10.5) K/mm3 RBC (4.1-5.4) M/mm3 Hgb (12.0-16.0) gm/dl Hct (35-47) % MCV (78-100) fl MCH (26-32) pg MCHC (32-36) g/dl RDW (11.5-14.0) % Plt Count (150-450) K/mm3 MPV (7.5-11.0) fl Puncture Site pCO2 (35-45) mmHg pO2 (75-100) mmHg Base Excess (-2.0-2.0) O2 Saturation (94-100) g/dF ABG pH (7.35-7.45) ABG HCO3 (22-28) ABG O2 Sat (Measured) (95-100) % Graham Test A-a Gradient a/A Ratio Hemoglobin Carboxyhemoglobin (0.0-6.9) % THgb Methemoglobin (1.4-1.5) % Glucose 234 H (70-110) Temperature C POC O2 Flow Rate % Sodium 146 H (137-145) mmol/L Potassium 4.2 (3.5-5.1) mmol/L Chloride 114 H (98-107) mmol/L Carbon Dioxide 19 L (22-30) mmol/L Anion Gap 16.6 H (5-15) MEQ/L BUN 16 (7-17) mg/dL Creatinine 0.67 (0.52-1.04) mg/dL Estimated GFR > 60.0 ML/MIN Hemoglobin A1c (4.5-6.0) % Lactic Acid (0.4-2.0) Calcium 9.2 (8.4-10.2) mg/dL Troponin I < 0.012 < 0.012 (0.000-0.034) ng/mL Vitamin B12 (239-931) pg/mL Folic Acid (2.76 - >20) ng/mL Urine Opiates Level (NEGATIVE) Ur Methadone (NEGATIVE) Urine Barbiturates (NEGATIVE) Ur Phencyclidine (PCP) (NEGATIVE) Urine Amphetamine (NEGATIVE) U Benzodiazepine Level (NEGATIVE) Urine Cocaine (NEGATIVE) Urine Marijuana (THC) (NEGATIVE) 09/10/19 Range/Units 18:55 WBC (4.0-10.5) K/mm3 RBC (4.1-5.4) M/mm3 Hgb (12.0-16.0) gm/dl Hct (35-47) % MCV (78-100) fl MCH (26-32) pg MCHC (32-36) g/dl RDW (11.5-14.0) % Plt Count (150-450) K/mm3 MPV (7.5-11.0) fl Puncture Site pCO2 (35-45) mmHg pO2 (75-100) mmHg Base Excess (-2.0-2.0) O2 Saturation (94-100) g/dF ABG pH (7.35-7.45) ABG HCO3 (22-28) ABG O2 Sat (Measured) (95-100) % Graham Test A-a Gradient a/A Ratio Hemoglobin Carboxyhemoglobin (0.0-6.9) % THgb Methemoglobin (1.4-1.5) % Glucose 232 H (70-110) Temperature C POC O2 Flow Rate % Sodium (137-145) mmol/L Potassium (3.5-5.1) mmol/L Chloride (98-107) mmol/L Carbon Dioxide (22-30) mmol/L Anion Gap (5-15) MEQ/L BUN (7-17) mg/dL Creatinine (0.52-1.04) mg/dL Estimated GFR ML/MIN Hemoglobin A1c (4.5-6.0) % Lactic Acid (0.4-2.0) Calcium (8.4-10.2) mg/dL Troponin I (0.000-0.034) ng/mL Vitamin B12 (239-931) pg/mL Folic Acid (2.76 - >20) ng/mL Urine Opiates Level (NEGATIVE) Ur Methadone (NEGATIVE) Urine Barbiturates (NEGATIVE) Ur Phencyclidine (PCP) (NEGATIVE) Urine Amphetamine (NEGATIVE) U Benzodiazepine Level (NEGATIVE) Urine Cocaine (NEGATIVE) Urine Marijuana (THC) (NEGATIVE) Microbiology 09/09/19 17:40 Urine Culture - Preliminary Catherized NO GROWTH TO DATE Accuchecks Accucheck Value: 219 Accucheck Value: 120 Accucheck Value: 151 Accucheck Value: 237 Accucheck Value: 227 - Radiology Impressions Radiology Exams & Impressions: Radiology Procedures Category Date Time Status CHEST 1 VIEW (PORTABLE) Stat Exams 09/09/19 16:42 Completed ECHO W/2D AND DOPPLER [US] Urgent Exams 09/12/19 08:00 Ordered HEAD WITHOUT CONTRAST [CT] Urgent Exams 09/10/19 11:06 Completed Assessment/Plan (1) Encephalopathy Current Visit: Yes Status: Acute Assessment & Plan: Likely due to DKA or metabolic acidosis. Patient has had difficulty weening off the insulin drip. Even with blood sugars in the 100s she is unable or has no desire to eat. We have put her back on the insulin drip at a lower rate. She is on d5 half normal with K. Her lactic has trended down then back up trended down and back up. We will maintain her on the drip for longer. Her gap had closed and she had been initiated on sliding scale. Patient got CT of head today to rule possible stroke due to her decreased level of consciousness. CT head was neg for bleed. Code(s): G93.40 - ENCEPHALOPATHY, UNSPECIFIED (2) DKA (diabetic ketoacidoses) Current Visit: Yes Status: Acute Assessment & Plan: She is going to be on the insulin drip for longer period of time. The gap was closed and she was transitioned to PO diet. She is not eating. BS started to increase again. Will keep her on D5 half normal and lower dose of insulin drip for now. Code(s): E11.10 - TYPE 2 DIABETES MELLITUS WITH KETOACIDOSIS WITHOUT COMA (3) Tachycardia Current Visit: Yes Status: Acute Assessment & Plan: Unsure etiology. Was started on beta lisa which helped with tachycardia. Trops x3 were ordered EKG x2 were ordered. Echo was ordered. Patient does have PRN labetalol Code(s): R00.0 - TACHYCARDIA, UNSPECIFIED (4) Elevated lactic acid level Current Visit: No Status: Acute Assessment & Plan: Likely due to DKA which is still being managed. Code(s): R79.89 - OTHER SPECIFIED ABNORMAL FINDINGS OF BLOOD CHEMISTRY (5) Noncompliance Current Visit: Yes Status: Acute Assessment & Plan: Patient is not on the correct insulin regimen. She is supposed to be on long acting but does not take this. She has a follow up scheduled with endocrinology. Code(s): Z91.19 - PATIENT'S NONCOMPLIANCE W OTH MEDICAL TREATMENT AND REGIMEN (6) Poor dental hygiene Current Visit: Yes Status: Acute Assessment & Plan: Patient likely has some tooth decay due to poor oral hygiene. She is currently on antibiotics as possible source of infection. Will continue to monitor signs and symptoms. Code(s): Z91.89 - OTH PERSONAL RISK FACTORS, NOT ELSEWHERE CLASSIFIED (7) Sepsis Current Visit: Yes Status: Acute Assessment & Plan: Patient now has a temp, elevated lactic acid, tachycardia and encephalopathy. Will start her on vanc and zosyn and follow sepsis protocol.
[2019-09-10] MEDS ORDERED: FEVERALL 650 MG PR PRN (21:02)
[2019-09-10] MEDS ORDERED: TYLENOL 325 MG PO PRN (21:28)
[2019-09-10] MEDS ORDERED: VANCOMYCIN 1 GRAM/200 ML BAG 1 GM/200 ML PIGGYBACK IV ONE (22:00)
[2019-09-10 22:26] LABS: ANION GAP 15.5 MEQ/L (5-15); BLOOD UREA NITROGEN 14 mg/dL (7-17); CHLORIDE 113 mmol/L (98-107); Calcium 9.4 mg/dL (8.4-10.2); Carbon Dioxide 21 mmol/L (22-30); Creatinine 1 0.71 mg/dL (0.52-1.04); Glucose 211 mg/dL (74-106); SODIUM 146 mmol/L (137-145)
[2019-09-10] MEDS ORDERED: Zosyn 3.375 GM Vial IV ONE (23:09)
[2019-09-10] MEDS ORDERED: Sodium Chloride 100ML MINI-BAG PLUS 100 ML IV ONE (23:10)
[2019-09-10] MEDS: Zosyn 3.375 GM Vial 3.375 GM in Sodium Chloride 100ML MINI-BAG PLUS 100 ML IV SCH (23:19)
[2019-09-11] MEDS ORDERED: Toprol Xl 50 MG PO ONE (01:51)
[2019-09-11 02:12] LABS: ANION GAP 11.5 MEQ/L (5-15); BLOOD UREA NITROGEN 12 mg/dL (7-17); CHLORIDE 114 mmol/L (98-107); Calcium 9.2 mg/dL (8.4-10.2); Carbon Dioxide 24 mmol/L (22-30); Creatinine 1 0.72 mg/dL (0.52-1.04); Glucose 147 mg/dL (74-106); Potassium 3.8 mmol/L (3.5-5.1); SODIUM 146 mmol/L (137-145)
[2019-09-11] MEDS ORDERED: TRANDATE 20 MG/5 ML SYRINGE IV ONE ×2 (03:41→16:26)
[2019-09-11] MEDS ORDERED: Sodium Chloride 100ML MINI-BAG PLUS 100 ML IV ONE (04:13)
[2019-09-11] MEDS: Zosyn 3.375 GM Vial 3.375 GM in Sodium Chloride 100ML MINI-BAG PLUS 100 ML IV SCH ×4 (05:25→23:27)
[2019-09-11 05:55] LABS: Absolute Neutrophil Ct (ANC) 7.51 (1.4-6.9); BASOPHIL % 0.3 % (0.0-0.4); Basophil (Absolute #) 0.03 (0-0.4); Eosinophil % 0.1 % (0.00-5.0); Eosinophil (Absolute #) 0.01 (0-0.5); Hematocrit 36.9 % (35-47); Hemoglobin 11.8 gm/dl (12.0-16.0); Lymphocyte (Absolute #) 2.74 (1.0-4.6); Lymphocytes % 24.3 % (24.0-44.0); Mean Cell Volume 105.4 fl (78-100); Mean Corpuscular Hemoglobin 33.7 pg (26-32); Monocyte (Absolute #) 0.99 (0.0-1.3); Monocytes % 8.8 % (0.0-12.0); Neutrophil % 66.5 % (36.0-66.0); Platelet Count 313 K/mm3 (150-450); Red Cell Distribution Width 14.3 % (11.5-14.0); White Blood Count 11.3 K/mm3 (4.0-10.5)
[2019-09-11] MEDS: D5W/0.45NS W/ 20mEq KCl 1000 ML 1,000 ML IV SCH (06:00)
[2019-09-11 06:21] LABS: ANION GAP 10.8 MEQ/L (5-15); BLOOD UREA NITROGEN 11 mg/dL (7-17); CHLORIDE 112 mmol/L (98-107); Calcium 9.1 mg/dL (8.4-10.2); Carbon Dioxide 25 mmol/L (22-30); Creatinine 1 0.74 mg/dL (0.52-1.04); Glucose 164 mg/dL (74-106); Potassium 3.6 mmol/L (3.5-5.1); SODIUM 144 mmol/L (137-145)
[2019-09-11] MEDS: Zofran 4 MG/2 ML VIAL IV PRN ×3 (08:16→17:34)
[2019-09-11] MEDS: VANCOMYCIN 1 GRAM/200 ML BAG 1 GM/200 ML PIGGYBACK IV SCH ×2 (09:51→21:20)
[2019-09-11 10:24] LABS: ANION GAP 13.2 MEQ/L (5-15); BLOOD UREA NITROGEN 10 mg/dL (7-17); CHLORIDE 112 mmol/L (98-107); Calcium 9.2 mg/dL (8.4-10.2); Carbon Dioxide 23 mmol/L (22-30); Glucose 151 mg/dL (74-106); Potassium 3.7 mmol/L (3.5-5.1); SODIUM 145 mmol/L (137-145)
[2019-09-11] MEDS: Pepcid 20 MG VIAL IV SCH (10:43)
[2019-09-11] MEDS: Lantus Insulin SQ SCH (10:43)
--- NOTE | 2019-09-11 11:38 | PCM.NOTE ---
Date and Time: 09/11/19 1138 Subjective Assessment: 34 yr old female seen and examined this am. Patient reports that she has been without her tuojeo for her DM. She reports that she has been drinking apple juice this am. She reported to one of the nurses that she would like her neuropathy medication. - Review of Systems Constitutional: Fever, No Chills All Other Systems: Unable due to condition (Patient is more awake this am but still limited historian) Objective Exam General Appearance: mild distress, lethargy, thin, other (Patient is unkempt and is a brittle diabetic. Bronze colored skin.) Neurologic Exam: depressed mood/affect (Flat affect), other (arousable and more alert than yesterday. She answered two questions today) Skin Exam: warm, dry, No rash, No jaundice Eye Exam: No scleral icterus Ears, Nose, Throat Exam: moist mucous membranes Respiratory Exam: normal breath sounds, lungs clear, No respiratory distress, No diminished breath sounds, No crackles/rales, No wheezing Cardiovascular Exam: normal heart sounds, tachycardia, No murmur, No friction rub, No gallop, No irregular, No edema Gastrointestinal/Abdomen Exam: soft, normal bowel sounds, No tenderness Extremity Exam: No pedal edema, No swelling Pelvic Exam: deferred Rectal Exam: deferred OBJECTIVE DATA Vital Signs: Vital Signs - 24 hr Temp Pulse Resp BP Pulse Ox 09/11/19 08:00 103 H 15 09/11/19 07:22 99.3 F 107 H 15 171/94 97 09/11/19 04:00 99.5 F 123 H 15 144/79 09/11/19 00:01 123 H 09/11/19 00:00 15 09/10/19 23:55 99.5 F 123 H 15 144/79 98 09/10/19 20:00 122 H 17 09/10/19 19:50 100.5 F 122 H 17 142/64 97 09/10/19 16:00 98.5 F 119 H 14 167/84 98 09/10/19 12:00 99.1 F 132 H 12 169/89 96 Pain Assessment - Last Documented Pain Intensity 9 Pain Scale Used [facility] Intake and Output: Intake & Output 09/08/19 09/09/19 09/10/19 09/11/19 11:59 11:59 11:59 11:59 Intake Total 1287 6790 Output Total 2250 7960 Balance -963 690 Weight 60.8 kg 60 kg Lab Results: Accuchecks Date 09/11/19 Time 08:00 Accucheck Value: 153 Accucheck Value: 140 Accucheck Value: 140 Lab Results-Last 24 Hours 09/10/19 09/10/19 09/10/19 Range/Units 06:00 12:00 13:20 WBC (4.0-10.5) K/mm3 RBC (4.1-5.4) M/mm3 Hgb (12.0-16.0) gm/dl Hct (35-47) % MCV (78-100) fl MCH (26-32) pg MCHC (32-36) g/dl RDW (11.5-14.0) % Plt Count (150-450) K/mm3 MPV (7.5-11.0) fl Gran % (36.0-66.0) % Eos # (Auto) (0-0.5) Absolute Lymphs (auto) (1.0-4.6) Absolute Monos (auto) (0.0-1.3) Lymphocytes % (24.0-44.0) % Monocytes % (0.0-12.0) % Eosinophils % (0.00-5.0) % Basophils % (0.0-0.4) % Absolute Granulocytes (1.4-6.9) Basophils # (0-0.4) Glucose 127 H (70-110) Sodium (137-145) mmol/L Potassium (3.5-5.1) mmol/L Chloride (98-107) mmol/L Carbon Dioxide (22-30) mmol/L Anion Gap (5-15) MEQ/L BUN (7-17) mg/dL Creatinine (0.52-1.04) mg/dL Estimated GFR ML/MIN Lactic Acid (0.4-2.0) Calcium (8.4-10.2) mg/dL Troponin I < 0.012 (0.000-0.034) ng/mL NT-Pro-B Natriuret Pep (0-450) pg/mL Vitamin B12 315 (239-931) pg/mL Folic Acid 5.34 (2.76 - >20) ng/mL 07/09/10/19 09/10/19 Range/Units 13:34 16:00 16:26 WBC (4.0-10.5) K/mm3 RBC (4.1-5.4) M/mm3 Hgb (12.0-16.0) gm/dl Hct (35-47) % MCV (78-100) fl MCH (26-32) pg MCHC (32-36) g/dl RDW (11.5-14.0) % Plt Count (150-450) K/mm3 MPV (7.5-11.0) fl Gran % (36.0-66.0) % Eos # (Auto) (0-0.5) Absolute Lymphs (auto) (1.0-4.6) Absolute Monos (auto) (0.0-1.3) Lymphocytes % (24.0-44.0) % Monocytes % (0.0-12.0) % Eosinophils % (0.00-5.0) % Basophils % (0.0-0.4) % Absolute Granulocytes (1.4-6.9) Basophils # (0-0.4) Glucose 282 H 332 H (70-110) Sodium 146 H (137-145) mmol/L Potassium 4.3 (3.5-5.1) mmol/L Chloride 112 H (98-107) mmol/L Carbon Dioxide 24 (22-30) mmol/L Anion Gap 13.6 (5-15) MEQ/L BUN 17 (7-17) mg/dL Creatinine 0.72 (0.52-1.04) mg/dL Estimated GFR > 60.0 ML/MIN Lactic Acid (0.4-2.0) Calcium 9.1 (8.4-10.2) mg/dL Troponin I < 0.012 (0.000-0.034) ng/mL NT-Pro-B Natriuret Pep (0-450) pg/mL Vitamin B12 (239-931) pg/mL Folic Acid (2.76 - >20) ng/mL 09/10/19 09/10/19 09/10/19 Range/Units 18:40 18:40 18:55 WBC (4.0-10.5) K/mm3 RBC (4.1-5.4) M/mm3 Hgb (12.0-16.0) gm/dl Hct (35-47) % MCV (78-100) fl MCH (26-32) pg MCHC (32-36) g/dl RDW (11.5-14.0) % Plt Count (150-450) K/mm3 MPV (7.5-11.0) fl Gran % (36.0-66.0) % Eos # (Auto) (0-0.5) Absolute Lymphs (auto) (1.0-4.6) Absolute Monos (auto) (0.0-1.3) Lymphocytes % (24.0-44.0) % Monocytes % (0.0-12.0) % Eosinophils % (0.00-5.0) % Basophils % (0.0-0.4) % Absolute Granulocytes (1.4-6.9) Basophils # (0-0.4) Glucose 234 H 232 H (70-110) Sodium 146 H (137-145) mmol/L Potassium 4.2 (3.5-5.1) mmol/L Chloride 114 H (98-107) mmol/L Carbon Dioxide 19 L (22-30) mmol/L Anion Gap 16.6 H (5-15) MEQ/L BUN 16 (7-17) mg/dL Creatinine 0.67 (0.52-1.04) mg/dL Estimated GFR > 60.0 ML/MIN Lactic Acid (0.4-2.0) Calcium 9.2 (8.4-10.2) mg/dL Troponin I < 0.012 (0.000-0.034) ng/mL NT-Pro-B Natriuret Pep (0-450) pg/mL Vitamin B12 (239-931) pg/mL Folic Acid (2.76 - >20) ng/mL 09/10/19 09/10/19 09/11/19 Range/Units 21:45 22:05 01:45 WBC (4.0-10.5) K/mm3 RBC (4.1-5.4) M/mm3 Hgb (12.0-16.0) gm/dl Hct (35-47) % MCV (78-100) fl MCH (26-32) pg MCHC (32-36) g/dl RDW (11.5-14.0) % Plt Count (150-450) K/mm3 MPV (7.5-11.0) fl Gran % (36.0-66.0) % Eos # (Auto) (0-0.5) Absolute Lymphs (auto) (1.0-4.6) Absolute Monos (auto) (0.0-1.3) Lymphocytes % (24.0-44.0) % Monocytes % (0.0-12.0) % Eosinophils % (0.00-5.0) % Basophils % (0.0-0.4) % Absolute Granulocytes (1.4-6.9) Basophils # (0-0.4) Glucose 215 H 211 H 147 H (70-110) Sodium 146 H 146 H (137-145) mmol/L Potassium 4.0 3.8 (3.5-5.1) mmol/L Chloride 113 H 114 H (98-107) mmol/L Carbon Dioxide 21 L 24 (22-30) mmol/L Anion Gap 15.5 H 11.5 (5-15) MEQ/L BUN 14 12 (7-17) mg/dL Creatinine 0.71 0.72 (0.52-1.04) mg/dL Estimated GFR > 60.0 > 60.0 ML/MIN Lactic Acid (0.4-2.0) Calcium 9.4 9.2 (8.4-10.2) mg/dL Troponin I (0.000-0.034) ng/mL NT-Pro-B Natriuret Pep (0-450) pg/mL Vitamin B12 (239-931) pg/mL Folic Acid (2.76 - >20) ng/mL 09/11/19 09/11/19 09/11/19 Range/Units 01:56 05:22 05:22 WBC 11.3 H (4.0-10.5) K/mm3 RBC 3.50 L (4.1-5.4) M/mm3 Hgb 11.8 L (12.0-16.0) gm/dl Hct 36.9 (35-47) % MCV 105.4 H (78-100) fl MCH 33.7 H (26-32) pg MCHC 32.0 (32-36) g/dl RDW 14.3 H (11.5-14.0) % Plt Count 313 (150-450) K/mm3 MPV 10.0 (7.5-11.0) fl Gran % 66.5 H (36.0-66.0) % Eos # (Auto) 0.01 (0-0.5) Absolute Lymphs (auto) 2.74 (1.0-4.6) Absolute Monos (auto) 0.99 (0.0-1.3) Lymphocytes % 24.3 (24.0-44.0) % Monocytes % 8.8 (0.0-12.0) % Eosinophils % 0.1 (0.00-5.0) % Basophils % 0.3 (0.0-0.4) % Absolute Granulocytes 7.51 H (1.4-6.9) Basophils # 0.03 (0-0.4) Glucose 146 H 164 H (70-110) Sodium 144 (137-145) mmol/L Potassium 3.6 (3.5-5.1) mmol/L Chloride 112 H (98-107) mmol/L Carbon Dioxide 25 (22-30) mmol/L Anion Gap 10.8 (5-15) MEQ/L BUN 11 (7-17) mg/dL Creatinine 0.74 (0.52-1.04) mg/dL Estimated GFR > 60.0 ML/MIN Lactic Acid (0.4-2.0) Calcium 9.1 (8.4-10.2) mg/dL Troponin I (0.000-0.034) ng/mL NT-Pro-B Natriuret Pep (0-450) pg/mL Vitamin B12 (239-931) pg/mL Folic Acid (2.76 - >20) ng/mL 09/11/19 09/11/19 09/11/19 Range/Units 08:00 10:00 10:00 WBC (4.0-10.5) K/mm3 RBC (4.1-5.4) M/mm3 Hgb (12.0-16.0) gm/dl Hct (35-47) % MCV (78-100) fl MCH (26-32) pg MCHC (32-36) g/dl RDW (11.5-14.0) % Plt Count (150-450) K/mm3 MPV (7.5-11.0) fl Gran % (36.0-66.0) % Eos # (Auto) (0-0.5) Absolute Lymphs (auto) (1.0-4.6) Absolute Monos (auto) (0.0-1.3) Lymphocytes % (24.0-44.0) % Monocytes % (0.0-12.0) % Eosinophils % (0.00-5.0) % Basophils % (0.0-0.4) % Absolute Granulocytes (1.4-6.9) Basophils # (0-0.4) Glucose 171 H 151 H (70-110) Sodium 145 (137-145) mmol/L Potassium 3.7 (3.5-5.1) mmol/L Chloride 112 H (98-107) mmol/L Carbon Dioxide 23 (22-30) mmol/L Anion Gap 13.2 (5-15) MEQ/L BUN 10 (7-17) mg/dL Creatinine 0.70 (0.52-1.04) mg/dL Estimated GFR > 60.0 ML/MIN Lactic Acid (0.4-2.0) Calcium 9.2 (8.4-10.2) mg/dL Troponin I (0.000-0.034) ng/mL NT-Pro-B Natriuret Pep 860 H (0-450) pg/mL Vitamin B12 (239-931) pg/mL Folic Acid (2.76 - >20) ng/mL 09/11/19 09/11/19 Range/Units 10:17 11:20 WBC (4.0-10.5) K/mm3 RBC (4.1-5.4) M/mm3 Hgb (12.0-16.0) gm/dl Hct (35-47) % MCV (78-100) fl MCH (26-32) pg MCHC (32-36) g/dl RDW (11.5-14.0) % Plt Count (150-450) K/mm3 MPV (7.5-11.0) fl Gran % (36.0-66.0) % Eos # (Auto) (0-0.5) Absolute Lymphs (auto) (1.0-4.6) Absolute Monos (auto) (0.0-1.3) Lymphocytes % (24.0-44.0) % Monocytes % (0.0-12.0) % Eosinophils % (0.00-5.0) % Basophils % (0.0-0.4) % Absolute Granulocytes (1.4-6.9) Basophils # (0-0.4) Glucose 175 H (70-110) Sodium (137-145) mmol/L Potassium (3.5-5.1) mmol/L Chloride (98-107) mmol/L Carbon Dioxide (22-30) mmol/L Anion Gap (5-15) MEQ/L BUN (7-17) mg/dL Creatinine (0.52-1.04) mg/dL Estimated GFR ML/MIN Lactic Acid 5.1 H (0.4-2.0) Calcium (8.4-10.2) mg/dL Troponin I (0.000-0.034) ng/mL NT-Pro-B Natriuret Pep (0-450) pg/mL Vitamin B12 (239-931) pg/mL Folic Acid (2.76 - >20) ng/mL Radiology Exams: Radiology Procedures Category Date Time Status CHEST 1 VIEW (PORTABLE) Stat Exams 09/09/19 16:42 Completed ECHO W/2D AND DOPPLER [US] Urgent Exams 09/12/19 08:00 Ordered HEAD WITHOUT CONTRAST [CT] Urgent Exams 09/10/19 11:06 Completed Multi-Disciplinary Progress Notes: Multi-Disciplinary Progress Notes 09/11/19 07:58 Pharmacy Note by Jaylan Lopez Pharmacokinetic dosing service Date: 09/11/19 Time: 0800 Objective: PHARMACY DOSING VANCOMYCIN Patient: JUAN SHARMA Floor: 128 Age: 34 yo Serum creatinine: 0.74 mg/dL Height: 65 Inches Weight (kg): 60 Diagnosis: POSSIBLE SEPSIS; DIABETIC DKA Relevant medical/social history: Cultures and sensitivities: NONE Other labs: SR CR = 0.74 WBC 11.3 LACTIC 8.9 Assessment: IBW (kg): 57.00 Dosing wt(kg): 60 Estimated Creatinine clearance (ml/min): 97.3 CRCL method: Cockcroft and Gault using ibw(default). Drug selected: Vancomycin Loading dose (mg): 0 Vd (liters): 42.0 (factor used: 0.7 L/kg) Huseyin (hr-1): 0.085 Half life (hrs): 8.15 Recommended dose: 1000 mg Interval: 12 hrs Infusion time (hrs): 1.5 Predicted peak (mcg/mL): 35.0 Predicted trough (mcg/mL): 14.34 Total body weight is being used for vancomycin dosing. Renal function is stable [ xxxx] /unstable [ ] Recommendations: Give Vancomycin 1000 mg q 12 hrs with an expected Cpeak of 35.0 mcg/ml and an expected Ctrough of 14.34 mcg/ml Renal dosing of other antibiotics (review renal dosing of other medications and list guidelines here): ZOSYN 3.375 GM Q6H Thank you for the consult, will continue to follow. Signature: SHAILESH Initialized on 09/11/19 07:58 - END OF NOTE Assessment/Plan (1) Sepsis Current Visit: Yes Status: Acute Assessment & Plan: Patient meets criteria for sepsis. She is on vanc and zosyn. Tylenol for fevers. She continues to have elevated lactic acid. Will continue to trend lactic acid and follow up on blood cultures. No source of infection found except possible dental infection. (2) Encephalopathy Current Visit: Yes Status: Acute Assessment & Plan: Encephalopathy likely due to DKA or Sepsis. Patient is more alert this am. Patient is starting to appear fluid overloaded. Lactic acid is still elevated and has bounced all around from 1.5 to 10. We will continue to trend lactic acid. It is currently around 5. CT head was negative for any pathology. Today patient was able to answer two questions. Code(s): G93.40 - ENCEPHALOPATHY, UNSPECIFIED (3) DKA (diabetic ketoacidoses) Current Visit: Yes Status: Acute Assessment & Plan: Gap was closed and then started to be elevated again. Patient has had to be restarted on insulin drip due to increasing blood sugars and elevated lactic acid. She is a brittle diabetic. She is being started on long acting and moderate sliding scale. She is on clear liquid diet. Will continue to monitor BS and lactic acid. Patient reported to me she has been out of her medications. Patient reported to discharge planning that she has them she just does not take them. She is at risk for repeat admission. Patient supposedly has endocrin appt on September 15. Code(s): E11.10 - TYPE 2 DIABETES MELLITUS WITH KETOACIDOSIS WITHOUT COMA (4) Tachycardia Current Visit: Yes Status: Acute Assessment & Plan: Patient has required multiple doses of labetol and metoprolol for HR and BP. She still has been tachy but has improved. Will decrease fluids. She is not normally on bp meds. Echo is ordered Code(s): R00.0 - TACHYCARDIA, UNSPECIFIED (5) Elevated lactic acid level Current Visit: No Status: Acute Code(s): R79.89 - OTHER SPECIFIED ABNORMAL FINDINGS OF BLOOD CHEMISTRY (6) Noncompliance Current Visit: Yes Status: Acute Code(s): Z91.19 - PATIENT'S NONCOMPLIANCE W OTH MEDICAL TREATMENT AND REGIMEN (7) Poor dental hygiene Current Visit: Yes Status: Acute Code(s): Z91.89 - OTH PERSONAL RISK FACTORS, NOT ELSEWHERE CLASSIFIED (8) Elevated brain natriuretic peptide (BNP) level Current Visit: Yes Status: Acute Assessment & Plan: Echo has been ordered. BNP was elevated this am. She is possibly fluid overloaded but she has required significant fluid replacement due to DKA and sepsis Code(s): R79.89 - OTHER SPECIFIED ABNORMAL FINDINGS OF BLOOD CHEMISTRY
[2019-09-11] MEDS ORDERED: Neurontin 100 MG PO PRN (11:41)
[2019-09-11] MEDS: HUMALOG SQ PRN ×3 (14:30→22:07)
[2019-09-11 14:37] LABS: AMYLASE 73 U/L (30-110); ANION GAP 10.6 MEQ/L (5-15); BLOOD UREA NITROGEN 9 mg/dL (7-17); CHLORIDE 108 mmol/L (98-107); Calcium 8.9 mg/dL (8.4-10.2); Carbon Dioxide 25 mmol/L (22-30); Glucose 332 mg/dL (74-106); LIPASE 106 U/L (23-300); Potassium 3.7 mmol/L (3.5-5.1); SODIUM 140 mmol/L (137-145)
[2019-09-11] MEDS ORDERED: HUMALOG ONE ×2 (18:45→22:04)
[2019-09-11] MEDS: Ativan 2 MG/1 ML VIAL IV PRN (18:51)
[2019-09-12] MEDS ORDERED: HUMALOG ONE ×2 (02:39→05:52)
[2019-09-12] MEDS: HUMALOG SQ PRN ×4 (02:41→21:52)
[2019-09-12] MEDS: Zofran 4 MG/2 ML VIAL IV PRN ×4 (02:41→21:53)
[2019-09-12] MEDS ORDERED: TRANDATE 20 MG/5 ML SYRINGE IV ONE (03:10)
[2019-09-12] MEDS ORDERED: BENADRYL 25 MG CAPSULE PO ONE (03:10)
[2019-09-12] MEDS: Zosyn 3.375 GM Vial 3.375 GM in Sodium Chloride 100ML MINI-BAG PLUS 100 ML IV SCH ×3 (05:23→17:17)
[2019-09-12] MEDS: Sodium Chloride 0.9% 10 ML FLUSH Syringe IV SCH ×3 (05:23→21:52)
[2019-09-12] MEDS: D5W/0.45NS W/ 20mEq KCl 1000 ML 1,000 ML IV SCH (07:16)
[2019-09-12] MEDS: Lantus Insulin SQ SCH (07:32)
[2019-09-12 08:04] LABS: Hematocrit 35.3 % (35-47); Hemoglobin 11.5 gm/dl (12.0-16.0); Mean Cell Volume 102.6 fl (78-100); Mean Corpuscular Hemoglobin 33.4 pg (26-32); Mean Corpuscular Hgb Concent. 32.6 g/dl (32-36); Mean Platelet Volume 9.7 fl (7.5-11.0); Platelet Count 272 K/mm3 (150-450); Red Blood Count 3.44 M/mm3 (4.1-5.4); Red Cell Distribution Width 13.2 % (11.5-14.0); White Blood Count 9.3 K/mm3 (4.0-10.5)
[2019-09-12 08:22] LABS: ANION GAP 12.6 MEQ/L (5-15); BLOOD UREA NITROGEN 10 mg/dL (7-17); CHLORIDE 103 mmol/L (98-107); Calcium 9.1 mg/dL (8.4-10.2); Carbon Dioxide 25 mmol/L (22-30); Creatinine 1 0.63 mg/dL (0.52-1.04); Glucose 146 mg/dL (74-106); SODIUM 138 mmol/L (137-145)
[2019-09-12] MEDS: Norco 10/325 MG Tablet PO PRN ×4 (09:13→21:51)
[2019-09-12] MEDS: POTASSIUM CHLORIDE 20 mEq IN WATER 100ML 20 MEQ/100 ML BAG IV SCH ×2 (09:14→11:35)
[2019-09-12] MEDS: Pepcid 20 MG VIAL IV SCH (09:19)
[2019-09-12] MEDS: VANCOMYCIN 1 GRAM/200 ML BAG 1 GM/200 ML PIGGYBACK IV SCH ×2 (10:40→21:52)
[2019-09-12] MEDS: Tums EX 750 MG PO PRN (11:00)
--- NOTE | 2019-09-12 12:25 | ECHO ---
Transthoracic echocardiographic examination and color Doppler was done on 09/12/2019. INDICATION: Tachycardia. IMPRESSION: 1) NO REGIONAL WALL MOTION ABNORMALITY. ESTIMATED GLOBAL LEFT VENTRICULAR EJECTION FRACTION BETWEEN 60 AND 65%. 2) TRACE TRICUSPID REGURGITATION. RIGHT VENTRICULAR SYSTOLIC PRESSURE OF 21 MM OF MERCURY. The left ventricle is visualized and demonstrated adequate motion of all the segments. Estimated global left ventricular ejection fraction between 60 and 65%. The left ventricular thickness is at upper limits of normal. The mitral valve is seen and this opens adequately. No significant mitral regurgitation is seen. Left atrium is normal. The aortic valve opens adequately. The gradient across the left ventricular outflow tract is about 14 mm of Mercury. The right side chambers are normal with normal right ventricular contractility. There is trace tricuspid regurgitation. The right ventricular systolic pressure of 21 mm of Mercury.
[2019-09-12] MEDS: Ativan 2 MG/1 ML VIAL IV PRN (21:51)
[2019-09-12] MEDS ORDERED: BENADRYL 25 MG CAPSULE PO PRN (22:33)
[2019-09-13] MEDS: Zosyn 3.375 GM Vial 3.375 GM in Sodium Chloride 100ML MINI-BAG PLUS 100 ML IV SCH ×2 (00:04→05:20)
[2019-09-13 05:09] LABS: BLOOD UREA NITROGEN 11 mg/dL (7-17); CHLORIDE 101 mmol/L (98-107); Carbon Dioxide 28 mmol/L (22-30); Creatinine 1 0.71 mg/dL (0.52-1.04); Glucose 286 mg/dL (74-106); Potassium 3.5 mmol/L (3.5-5.1); SODIUM 134 mmol/L (137-145)
[2019-09-13 05:10] LABS: ALBUMIN 2.9 g/dL (3.5-5.0); ALKALINE PHOSPHATASE 109 U/L (38-126); ANION GAP 8.5 MEQ/L (5-15); Calcium 9.1 mg/dL (8.4-10.2); SGOT/AST 31 U/L (14-36); SGPT/ALT 15 U/L (0-35); Total Protein 5.7 g/dL (6.3-8.2)
[2019-09-13] MEDS: Sodium Chloride 0.9% 10 ML FLUSH Syringe IV SCH (05:20)
[2019-09-13] MEDS: Norco 10/325 MG Tablet PO PRN ×2 (05:30→10:02)
[2019-09-13] MEDS: Zofran 4 MG/2 ML VIAL IV PRN ×2 (05:30→10:02)
[2019-09-13] MEDS: Lantus Insulin SQ SCH (07:48)
[2019-09-13] MEDS: HUMALOG SQ PRN (07:49)
[2019-09-13] MEDS: Tums EX 750 MG PO PRN (07:49)
[2019-09-13 08:10] VITALS: BP 141/91; PULSE 98; O2SAT 100
[2019-09-13] MEDS ORDERED: TROUGH DRUG LEVELS IJ ONE (09:30)
--- NOTE | 2019-09-13 10:52 | DS ---
DISCHARGE DIAGNOSES: 1) DIABETIC KETOACIDOSIS. 2) DIABETES MELLITUS TYPE 1. HISTORY: The patient is a 34 year old white female who has had several admissions to the hospital for this problem. She reports that she has been feeling bad and hurting all over. Her sugar at home was over 700 on her meter and she therefore presented to the emergency room where she was found to be in diabetic ketoacidosis. The patient was admitted to the hospital after she was found to in diabetic ketoacidosis. PAST MEDICAL/SURGICAL HISTORY: Significant for diabetes, anxiety and depression. She has previously had a diabetic pump which has been removed. She sees Abigail Krishnan, [facility] Endocrinology. She has had bilateral carpal tunnel surgery performed. HOSPITAL COURSE: The patient was given diabetic ketoacidosis protocol which resolved her initial problem where her labs essentially returned to near normal other than being somewhat hypokalemic which had resolved with IV potassium riders. The patient was slow to improve in regards to her stomach and ability to take food down. Still not eating well by the morning of 09/12/2019 but by the morning of 09/13/2019 was looking and feeling much better. She was requesting Midnight for pain medicine to go home with and apparently she had been taking that quite regularly during her stay and I am concerned that she may developing a habit which we had discussed with her and being careful about the potential for addiction with that medication. The patient will be discharged home on her usual home medications and she was given a total of twelve Midnight to use on a PRN basis for her pain. She will be given follow up appointment to see her primary care provider, Amparo Gallego, in one week in the office.
== END 2019-09-13 10:55 | disposition home or self-care (01) | DRG 637 ==
LOC: ED 16:27 → ICU 19:08
PROVIDERS: ADMIT Family Medicine; ATTEND Family Medicine
DX: E10.10 Type 1 diabetes mellitus with ketoacidosis without coma (principal); A41.9 Sepsis, unspecified organism; G93.40 Encephalopathy, unspecified; E87.6 Hypokalemia; Z79.899 Other long term (current) drug therapy; Z79.4 Long term (current) use of insulin; R00.0 Tachycardia, unspecified; R79.89 Other specified abnormal findings of blood chemistry; Z91.19 Patient's noncompliance with other medical treatment and regimen
CPT/HCPCS: 36000; 36415; 36600; 51702; 70450; 71045; 80048; 80053; 80307; 81001; 81025; 82010; 82150; 82375; 82607; 82746; 82803; 82947; 82962; 83036; 83605; 83690; 83735; 83880; 84132; 84484; 85025; 85027; 87040; 87086; 93005; 93041; 93306; 96360; 96372; 96374; 99285; 99291; J0696; J1815; J1817; J2060; J2405; J3480; A9270-GY; G0480; J3370

== ENCOUNTER 2020-05-11 19:14 | Emergency (ER) | payer OTHER ==
[2020-05-11] MEDS ORDERED: NORCO 5/325 MG PO ONE (19:43)
[2020-05-11] MEDS ORDERED: NORCO 5/325 MG ONE (19:49)
--- NOTE | 2020-05-11 19:53 | ERPHSYRPT ---
- History of Present Illness Source: patient Exam Limitations: no limitations Patient Subjective Stated Complaint: "My finger hurts." Triage Nursing Assessment: Patient reported right 1st finger pain and swelling. Denied any known injury to the finger. Onset the night prior. located only at the 1st finger non-radiating. Described pain as throbbing. Denied past similar events. Right 1st digit with noted swelling, tenderness, and the appearance of a blister on the lateral aspect of the DIP. No noted erythema, heat, or read streaking. No noted exudate. Decreased ROM d/t pain. CR < 3 sec. Timing/Duration: yesterday Quality: painful Severity: moderate, severe Location: other (Right index finger) Possible Causes: no cause identified Associated Symptoms: blisters, swelling/mass/lumps Allergies/Adverse Reactions: No Known Drug Allergies Allergy (Verified 05/11/20 19:23) Home Medications: Insulin Lispro [Humalog Kwikpen] 12 unit SQ AC 09/10/19 [History] Medroxyprogesterone Acet [Depo-Provera] 150 mg IM Q90D 09/10/19 [History] Hx Tetanus, Diphtheria Vaccination/Date Given: Yes Hx Influenza Vaccination/Date Given: No Hx Pneumococcal Vaccination/Date Given: No Travel Risk - International Travel Have you traveled outside of the country in past 3 weeks: No - Coronavirus Screening Are you exhibiting any of the following symptoms?: No Close contact with a COVID-19 positive Pt in past 14-21 Days: No - Review of Systems Constitutional: No Fever, No Chills Eyes: No Symptoms Ears, Nose, & Throat: No Symptoms Respiratory: No Cough, No Dyspnea Cardiac: No Chest Pain, No Edema, No Syncope Abdominal/Gastrointestinal: No Abdominal Pain, No Nausea, No Vomiting, No Diarrhea Genitourinary Symptoms: No Dysuria Musculoskeletal: No Back Pain, No Neck Pain Skin: Cellulitis, Other (Blisters), No Rash Neurological: No Dizziness, No Focal Weakness, No Sensory Changes Psychological: No Symptoms Endocrine: No Symptoms All Other Systems: Reviewed and Negative - Past Medical History Pertinent Past Medical History: Yes Neurological History: Peripheral Neuropathy ENT History: No Pertinent History Cardiac History: No Pertinent History Respiratory History: No Pertinent History Endocrine Medical History: Diabetes Type I Musculoskeletal History: No Pertinent History GI Medical History: No Pertinent History History: No Pertinent History Psycho-Social History: Anxiety, Depression Female Reproductive Disorders: No Pertinent History Other Medical History: was taken off of diabetic pump and put on sub q insulin coverage- 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);carpal tunnel bilat - Past Surgical History Past Surgical History: Yes Neuro Surgical History: No Pertinent History Cardiac: No Pertinent History Respiratory: No Pertinent History Gastrointestinal: No Pertinent History Genitourinary: No Pertinent History Musculoskeletal: No Pertinent History Female Surgical History: Dilation & Curettage, Section Other Surgical History: cs x2 - Social History Smoking Status: Current every day smoker How long have you smoked: years Exposure to second hand smoke: Yes Alcohol Use: None Drug Use: none Patient Lives Alone: No Significant Family History: heart disease, diabetes - Female History Hx Now: No - Nursing Vital Signs Nursing Vital Signs: Initial Vital Signs Temperature 97.7 F 05/11/20 19:15 Pulse Rate 110 H 05/11/20 19:15 Respiratory Rate 16 05/11/20 19:15 Blood Pressure 171/100 05/11/20 19:15 O2 Sat by Pulse Oximetry 98 05/11/20 19:15 Pain Scale Pain Intensity 9 - Physical Exam General Appearance: no apparent distress, alert Eye Exam: PERRL/EOMI, eyes nml inspection Ears, Nose, Throat Exam: normal ENT inspection, pharynx normal, moist mucous membranes Neck Exam: normal inspection, non-tender, supple, full range of motion Respiratory Exam: normal breath sounds, lungs clear, No respiratory distress Cardiovascular Exam: regular rate/rhythm, normal heart sounds Gastrointestinal/Abdomen Exam: soft, mass, No tenderness Back Exam: normal inspection, normal range of motion, No CVA tenderness, No vertebral tenderness Extremity Exam: normal inspection, normal range of motion, deformities (Pain right index finger), inflammation, swelling, tenderness Neurologic Exam: alert, oriented x 3, cooperative, normal mood/affect, sensation nml, No motor deficits Skin Exam: warm, dry, other (Blistering noted on fingertip.) SpO2 Interpretation: normal SpO2: 98 Procedures - Incision and Drainage Time of Procedure: 20:25 Site: right index finger Anesthesia: None Blade Size: other (19G needle) I & D Procedure: betadine prep, sterile drapes applied, irrigated with normal saline Results: other (Clear fluid) Progress: No complications. Neuro conditions. Patient tolerated well. No blood loss. Clear drainage from blister. - Course Nursing assessment & vital signs reviewed: Yes Ordered Tests: Active Orders 24 hr Category Date Time Status FINGER(S) Stat Exams 05/11/20 19:57 Taken Medication Summary Discontinued Medications Generic Name Dose Route Start Last Admin Trade Name Chaim PRN Reason Stop Dose Admin Hydrocodone Bitart/Acetaminophen 1 tab 05/11/20 19:43 05/11/20 19:50 [place] 5/325 Mg PO 05/11/20 19:44 1 tab STAT ONE Administration Hydrocodone Bitart/Acetaminophen Confirm 05/11/20 19:49 [place] 5/325 Mg Administered 05/11/20 19:50 Dose 1 tab .ROUTE .STK-MED ONE - Progress Progress: improved Progress Note: 05/11/20 19:52 X-ray finger make sure there is no foreign body. Patient denies any injury but unsure. Will consider pain control, x-ray and probable I&D. 05/11/20 20:27 XR is negative. Incision and drainage went well. Will discharge home on antibiotics. Counseled pt/family regarding: diagnosis, need for follow-up, rad results - Departure Departure Disposition: Home Clinical Impression: Cellulitis Condition: Stable Critical Care Time: No Referrals: FROILAN FRANCO [Primary Care Provider] - Instructions: Cellulitis (Skin Infection), Adult (DC) Additional Instructions: Keep clean. Daily dressing changes. Take antibiotics as prescribed. Follow-up with your PCP in 2 to 3 days for recheck. Motrin or Tylenol for pain. Return to ER if worse. Prescriptions: Smz/Tmp Ds Tablet [Bactrim Ds Tablet] 1 udtab PO BID #20 tablet
[2020-05-11] MEDS ORDERED: Rocephin 1000 MG INJ IM ONE (20:29)
[2020-05-11] MEDS ORDERED: Rocephin 1000 MG INJ ONE (20:45)
[2020-05-11] MEDS ORDERED: XYLOCAINE 1% HCL 20 ML MDV ONE (20:45)
[2020-05-11] MEDS ORDERED: BACIGUENT PACKET ONE (21:03)
[2020-05-11 21:07] VITALS: BP 141/100; PULSE 108; O2SAT 97
--- NOTE | 2020-05-11 22:04 | XRAY ---
Indication: Pain and swelling. No known injury. Comparison: None 3 view right 2nd finger demonstrates distal soft tissue swelling. No other bony, articular, or soft tissue abnormalities.
== END 2020-05-11 21:08 | disposition home or self-care (01) ==
LOC: ED 19:14
DX: L03.011 Cellulitis of right finger (principal)
CPT/HCPCS: 73140; 96372; 99284; J0696; A9270-GY

== ENCOUNTER 2020-07-03 20:34 | Observation (INO) | payer OTHER ==
[2020-07-03] MEDS ORDERED: Zofran 4 MG/2 ML VIAL IV ONE (20:53)
[2020-07-03] MEDS ORDERED: Sodium Chloride 0.9% 1000 ML 1,000 ML IV STA (20:53)
[2020-07-03] MEDS ORDERED: MORPHINE SULFATE 4 MG INJ IV ONE (20:53)
[2020-07-03 21:14] LABS: Absolute Neutrophil Ct (ANC) 6.65 (1.4-6.9); BASOPHIL % 0.7 % (0.0-0.4); Basophil (Absolute #) 0.07 (0-0.4); Eosinophil % 0.7 % (0.00-5.0); Eosinophil (Absolute #) 0.07 (0-0.5); Hematocrit 43.6 % (35-47); Hemoglobin 14.7 gm/dl (12.0-16.0); Lymphocyte (Absolute #) 2.78 (1.0-4.6); Lymphocytes % 27.8 % (24.0-44.0); Mean Cell Volume 96.5 fl (78-100); Mean Corpuscular Hemoglobin 32.5 pg (26-32); Mean Corpuscular Hgb Concent. 33.7 g/dl (32-36); Mean Platelet Volume 9.5 fl (7.5-11.0); Monocyte (Absolute #) 0.43 (0.0-1.3); Monocytes % 4.3 % (0.0-12.0); Neutrophil % 66.5 % (36.0-66.0); Platelet Count 389 K/mm3 (150-450); Red Blood Count 4.52 M/mm3 (4.1-5.4); Red Cell Distribution Width 13.6 % (11.5-14.0)
[2020-07-03 21:20] LABS: Appearance SLIGHTLY CLOUDY (CLEAR); Bilirubin NEGATIVE (NEGATIVE); Blood NEGATIVE Ery/ul (0-5); Epithelial Cells RARE /HPF (FEW); Glucose >=500 mg/dL (NEGATIVE); Ketones SMALL (NEGATIVE); Leukocyte Esterase NEGATIVE (NEGATIVE); Mucus SLIGHT /HPF (NEGATIVE); Nitrite NEGATIVE (NEGATIVE); Protein,Urine Dip >=500 (Negative); RBC 0-2 /HPF (0-2); Urobilinogen NEGATIVE mg/dL (0-1); WBC 0-2 /HPF (0-5)
[2020-07-03 21:27] LABS: ALBUMIN 4.2 g/dL (3.5-5.0); ALKALINE PHOSPHATASE 153 U/L (38-126); AMYLASE 45 U/L (30-110); ANION GAP 12.4 MEQ/L (5-15); BLOOD UREA NITROGEN 14 mg/dL (7-17); CHLORIDE 101 mmol/L (98-107); Calcium 9.7 mg/dL (8.4-10.2); Carbon Dioxide 23 mmol/L (22-30); Creatinine 1 0.67 mg/dL (0.52-1.04); EST GLOMERULAR FILTRATION RATE > 60.0 ML/MIN; Glucose 295 mg/dL (74-106); LIPASE 19 U/L (23-300); Potassium 3.8 mmol/L (3.5-5.1); SGOT/AST 31 U/L (14-36); SGPT/ALT 36 U/L (0-35); SODIUM 132 mmol/L (137-145); Total Protein 7.3 g/dL (6.3-8.2)
--- NOTE | 2020-07-03 21:30 | ERPHSYRPT ---
- History of Present Illness Time Seen by Provider: 07/03/20 20:43 Historian: patient Exam Limitations: no limitations Patient Subjective Stated Complaint: Patient states " I started having right ABD pain this morning and the pain continues to get worse as the day goes on". Triage Nursing Assessment: . Physician History: 35 years old female type I diabetic presented in the ER with gradually worsening right upper quadrant pain since morning, moderate intensity sharp nature, nonradiating, aggravated with movements palpation and associated with nausea but no vomiting. Denies any fever or chills. Denies any sick contact. No diarrhea or constipation reported. Timing/Duration: today, gradual onset, worse Activities at Onset: rest Quality: sharpness Abdominal Pain Onset Location: RUQ, epigastric Pain Radiation: no radiation Severity of Pain-Max: moderate Severity of Pain-Current: moderate Modifying Factors: Worsens With: movement, palpation Associated Symptoms: nausea, No vomiting Previous symptoms: no prior history Allergies/Adverse Reactions: No Known Drug Allergies Allergy (Verified 07/03/20 20:44) Home Medications: Medroxyprogesterone Acet [Depo-Provera] 150 mg IM Q90D 09/10/19 [History] Insulin Aspart (Niacinamide) [Fiasp 100 Unit/ml Flextouch] 14 units SQ AC 07/03/20 [History] Hx Tetanus, Diphtheria Vaccination/Date Given: Yes Hx Influenza Vaccination/Date Given: No Hx Pneumococcal Vaccination/Date Given: No Immunizations Up to Date: Yes Travel Risk - International Travel Have you traveled outside of the country in past 3 weeks: No - Coronavirus Screening Are you exhibiting any of the following symptoms?: No Close contact with a COVID-19 positive Pt in past 14-21 Days: No - Vaccine Status Have you recieved a Covid-19 vaccination: No - Review of Systems Constitutional: No Symptoms Eyes: No Symptoms Ears, Nose, & Throat: No Symptoms Respiratory: No Symptoms Cardiac: No Symptoms Abdominal/Gastrointestinal: Abdominal Pain, Nausea Genitourinary Symptoms: No Symptoms Musculoskeletal: No Symptoms Skin: No Symptoms Neurological: No Symptoms Psychological: No Symptoms Endocrine: No Symptoms Hematologic/Lymphatic: No Symptoms Immunological/Allergic: No Symptoms - Past Medical History Pertinent Past Medical History: Yes Neurological History: Peripheral Neuropathy ENT History: No Pertinent History Cardiac History: No Pertinent History Respiratory History: No Pertinent History Endocrine Medical History: Diabetes Type I Musculoskeletal History: No Pertinent History GI Medical History: No Pertinent History History: No Pertinent History Psycho-Social History: Anxiety, Depression Female Reproductive Disorders: No Pertinent History Other Medical History: Was taken off of diabetic pump and put on sub q insulin coverage- 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 - Past Surgical History Past Surgical History: Yes Neuro Surgical History: No Pertinent History Cardiac: No Pertinent History Respiratory: No Pertinent History Gastrointestinal: No Pertinent History Genitourinary: No Pertinent History Musculoskeletal: No Pertinent History Female Surgical History: Dilation & Curettage, Section Other Surgical History: cs x2 - Social History Smoking Status: Current every day smoker How long have you smoked: 20 years Exposure to second hand smoke: Yes Alcohol Use: None Drug Use: none Patient Lives Alone: No Significant Family History: heart disease, diabetes - Female History Hx Last Menstrual Period: Depo Shot Hx Now: (UNKN) - Nursing Vital Signs Nursing Vital Signs: Initial Vital Signs Temperature 98.5 F 07/03/20 20:42 Pulse Rate 120 H 07/03/20 20:42 Respiratory Rate 18 07/03/20 20:42 Blood Pressure 176/93 07/03/20 20:42 O2 Sat by Pulse Oximetry 100 07/03/20 20:42 Pain Scale Pain Intensity 4 - Physical Exam General Appearance: no apparent distress, alert Eye Exam: PERRL/EOMI, eyes nml inspection Ears, Nose, Throat Exam: normal ENT inspection Neck Exam: normal inspection, supple, full range of motion Respiratory Exam: normal breath sounds, lungs clear Cardiovascular Exam: normal heart sounds, tachycardia Gastrointestinal/Abdomen Exam: soft, normal bowel sounds, tenderness (Right upper quadrant), guarding (Right upper quadrant), No rebound Back Exam: normal inspection, normal range of motion Extremity Exam: normal inspection, normal range of motion Neurologic Exam: alert, oriented x 3, cooperative Skin Exam: normal color SpO2 Interpretation: normal SpO2: 100 O2 Delivery: Room Air Ordered Tests: Active Orders 24 hr Category Date Time Status IV Insertion STAT Care 07/03/20 20:53 Active NPO (ED) STAT Care 07/03/20 20:53 Active ABDOMEN AND PELVIS W CONTRAST [CT] Stat Exams 07/03/20 21:42 Taken AMYLASE Stat Lab 07/03/20 21:05 Completed CBC W DIFF Stat Lab 07/03/20 21:05 Completed CMP Stat Lab 07/03/20 21:05 Completed HCG,QUALITATIVE URINE Stat Lab 07/03/20 21:03 Completed LIPASE Stat Lab 07/03/20 21:05 Completed UA W/RFX UR CULTURE Stat Lab 07/03/20 21:03 Completed VENOUS BLOOD GAS Stat Lab 07/03/20 21:30 Completed Medication Summary Generic Name Dose Route Start Last Admin Trade Name Chaim PRN Reason Stop Dose Admin Piperacillin Sod/Tazobactam 100 mls @ 200 mls/hr 07/03/20 23:04 Sod 3.375 gm/ Sodium Chloride IV 07/03/20 23:33 STAT ONE Discontinued Medications Generic Name Dose Route Start Last Admin Trade Name Freq PRN Reason Stop Dose Admin Sodium Chloride 1,000 mls @ 999 mls/hr 07/03/20 20:53 07/03/20 22:53 Sodium Chloride 0.9% 1000 Ml IV 07/03/20 21:53 Infused .Q1H1M STA Infusion Sodium Chloride Confirm 07/03/20 21:36 Sodium Chloride 0.9% 1000 Ml Administered 07/03/20 21:37 Dose 1,000 mls @ ud .ROUTE .STK-MED ONE Morphine Sulfate 4 mg 07/03/20 20:53 07/03/20 21:57 Morphine Sulfate 4 Mg Inj IV 07/03/20 20:54 4 mg STAT ONE Administration Morphine Sulfate Confirm 07/03/20 21:36 Morphine Sulfate 4 Mg Inj Administered 07/03/20 21:37 Dose 4 mg .ROUTE .STK-MED ONE Ondansetron HCl 4 mg 07/03/20 20:53 07/03/20 21:57 Zofran 4 Mg/2 Ml Vial IV 07/03/20 20:54 4 mg STAT ONE Administration Ondansetron HCl Confirm 07/03/20 21:35 Zofran 4 Mg/2 Ml Vial Administered 07/03/20 21:36 Dose 4 mg .ROUTE .STK-MED ONE Lab/Rad Data: Laboratory Result Diagrams 07/03/20 21:05 07/03/20 21:05 Laboratory Results 07/03/20 07/03/20 07/03/20 Range/Units 21:30 21:05 21:05 WBC 10.0 (4.0-10.5) K/mm3 RBC 4.52 (4.1-5.4) M/mm3 Hgb 14.7 (12.0-16.0) gm/dl Hct 43.6 (35-47) % MCV 96.5 (78-100) fl MCH 32.5 H (26-32) pg MCHC 33.7 (32-36) g/dl RDW 13.6 (11.5-14.0) % Plt Count 389 (150-450) K/mm3 MPV 9.5 (7.5-11.0) fl Gran % 66.5 H (36.0-66.0) % Eos # (Auto) 0.07 (0-0.5) Absolute Lymphs (auto) 2.78 (1.0-4.6) Absolute Monos (auto) 0.43 (0.0-1.3) Lymphocytes % 27.8 (24.0-44.0) % Monocytes % 4.3 (0.0-12.0) % Eosinophils % 0.7 (0.00-5.0) % Basophils % 0.7 (0.0-0.4) % Absolute Granulocytes 6.65 (1.4-6.9) Basophils # 0.07 (0-0.4) pO2/FiO2 Ratio 21.0 % VBG pH 7.45 H (7.32-7.42) VBG pCO2 at Pat Temp 31 L (42-55) mm/Hg VBG pO2 at Pat Temp 55 H (25-40) mm/Hg VBG HCO3 21.5 L (22-28) meq/L VBG O2 Sat (Alejandra) 90.4 L (95-100) VBG Base Excess -1.6 (-2.0-2.0) VBG Hemoglobin 14.3 VBG Carboxyhemoglobin 6.8 (0.0-6.9) % T HGB POC Potassium 4.4 (3.5-5.1) Sodium 132 L (137-145) mmol/L Potassium 3.8 (3.5-5.1) mmol/L Chloride 101 (98-107) mmol/L Carbon Dioxide 23 (22-30) mmol/L Anion Gap 12.4 (5-15) MEQ/L BUN 14 (7-17) mg/dL Creatinine 0.67 (0.52-1.04) mg/dL Estimated GFR > 60.0 ML/MIN Glucose 295 H (74-106) mg/dL Calcium 9.7 (8.4-10.2) mg/dL Total Bilirubin 0.60 (0.2-1.3) mg/dL AST 31 (14-36) U/L ALT 36 H (0-35) U/L Alkaline Phosphatase 153 H (38-126) U/L Serum Total Protein 7.3 (6.3-8.2) g/dL Albumin 4.2 (3.5-5.0) g/dL Amylase 45 (30-110) U/L Lipase 19 L (23-300) U/L Urine Color (YELLOW) Urine Appearance (CLEAR) Urine pH (5-6) Ur Specific [place] (1.005-1.025) Urine Protein (Negative) Urine Ketones (NEGATIVE) Urine Blood (0-5) Rodney/ul Urine Nitrite (NEGATIVE) Urine Bilirubin (NEGATIVE) Urine Urobilinogen (0-1) mg/dL Ur Leukocyte Esterase (NEGATIVE) Urine WBC (Auto) (0-5) /HPF Urine RBC (Auto) (0-2) /HPF U Epithel Cells (Auto) (FEW) /HPF Urine Bacteria (Auto) (NEGATIVE) /HPF Urine Mucus (Auto) (NEGATIVE) /HPF Urine Culture Reflexed (NO) Urine Glucose (NEGATIVE) mg/dL Urine HCG, Qual (Negative) 07/03/20 07/03/20 Range/Units 21:03 21:03 WBC (4.0-10.5) K/mm3 RBC (4.1-5.4) M/mm3 Hgb (12.0-16.0) gm/dl Hct (35-47) % MCV (78-100) fl MCH (26-32) pg MCHC (32-36) g/dl RDW (11.5-14.0) % Plt Count (150-450) K/mm3 MPV (7.5-11.0) fl Gran % (36.0-66.0) % Eos # (Auto) (0-0.5) Absolute Lymphs (auto) (1.0-4.6) Absolute Monos (auto) (0.0-1.3) Lymphocytes % (24.0-44.0) % Monocytes % (0.0-12.0) % Eosinophils % (0.00-5.0) % Basophils % (0.0-0.4) % Absolute Granulocytes (1.4-6.9) Basophils # (0-0.4) pO2/FiO2 Ratio % VBG pH (7.32-7.42) VBG pCO2 at Pat Temp (42-55) mm/Hg VBG pO2 at Pat Temp (25-40) mm/Hg VBG HCO3 (22-28) meq/L VBG O2 Sat (Alejandra) (95-100) VBG Base Excess (-2.0-2.0) VBG Hemoglobin VBG Carboxyhemoglobin (0.0-6.9) % T HGB POC Potassium (3.5-5.1) Sodium (137-145) mmol/L Potassium (3.5-5.1) mmol/L Chloride (98-107) mmol/L Carbon Dioxide (22-30) mmol/L Anion Gap (5-15) MEQ/L BUN (7-17) mg/dL Creatinine (0.52-1.04) mg/dL Estimated GFR ML/MIN Glucose (74-106) mg/dL Calcium (8.4-10.2) mg/dL Total Bilirubin (0.2-1.3) mg/dL AST (14-36) U/L ALT (0-35) U/L Alkaline Phosphatase (38-126) U/L Serum Total Protein (6.3-8.2) g/dL Albumin (3.5-5.0) g/dL Amylase (30-110) U/L Lipase (23-300) U/L Urine Color YELLOW (YELLOW) Urine Appearance SLIGHTLY CLOUDY (CLEAR) Urine pH 5.0 (5-6) Ur Specific [place] 1.030 (1.005-1.025) Urine Protein >=500 (Negative) Urine Ketones SMALL (NEGATIVE) Urine Blood NEGATIVE (0-5) Rodney/ul Urine Nitrite NEGATIVE (NEGATIVE) Urine Bilirubin NEGATIVE (NEGATIVE) Urine Urobilinogen NEGATIVE (0-1) mg/dL Ur Leukocyte Esterase NEGATIVE (NEGATIVE) Urine WBC (Auto) 0-2 (0-5) /HPF Urine RBC (Auto) 0-2 (0-2) /HPF U Epithel Cells (Auto) RARE (FEW) /HPF Urine Bacteria (Auto) NONE (NEGATIVE) /HPF Urine Mucus (Auto) SLIGHT (NEGATIVE) /HPF Urine Culture Reflexed NO (NO) Urine Glucose >=500 (NEGATIVE) mg/dL Urine HCG, Qual NEGATIVE (Negative) - Progress Progress: improved, pain not gone completely, re-examined Progress Note: 07/03/20 23:11 35 years old type I diabetic is evaluated for right-sided abdominal pain. She is given fluids and symptomatic treatment for pain, reevaluation feeling better. She has a normal white count, grossly unremarkable chemistries. Normal lipase. Obtain CT with contrast which showed colitis and started on Zosyn. Discussed with Dr. Wilcox and patient is admitted Discussed with .: Tra Will see patient in: hospital (observation) Counseled pt/family regarding: lab results, diagnosis, rad results - Departure Departure Disposition: Observation Clinical Impression: Infectious colitis Condition: Stable Critical Care Time: No Referrals: FROILAN FRANCO [Primary Care Provider] -
[2020-07-03] MEDS ORDERED: Zofran 4 MG/2 ML VIAL ONE (21:35)
[2020-07-03] MEDS ORDERED: MORPHINE SULFATE 4 MG INJ ONE (21:36)
[2020-07-03] MEDS ORDERED: Sodium Chloride 0.9% 1000 ML 1,000 ML ONE (21:36)
[2020-07-03 22:14] LABS: VBG BASE EXCESS -1.6 (-2.0-2.0); VBG CARBOXYHEMOGLOBIN 6.8 % T HGB (0.0-6.9); VBG HCO3- 21.5 meq/L (22-28); VBG HEMOGLOBIN 14.3; VBG O2 SATURATION 90.4 (95-100); VBG POTASSIUM 4.4 (3.5-5.1); VBG pH 7.45 (7.32-7.42)
[2020-07-03] MEDS ORDERED: Zosyn 3.375 GM Vial 3.375 GM in Sodium Chloride 100ML MINI-BAG PLUS 100 ML IV ONE (23:04)
[2020-07-03] MEDS ORDERED: Zosyn 3.375 GM Vial IV ONE (23:33)
[2020-07-03] MEDS ORDERED: Sodium Chloride 100ML MINI-BAG PLUS 100 ML IV ONE (23:34)
[2020-07-04 00:10] LABS: INFLUENZA A NEGATIVE (NEGATIVE); INFLUENZA B NEGATIVE (NEGATIVE); RESPIRATORY SYNCTIAL VIRUS NEGATIVE (Negative)
[2020-07-04] MEDS ORDERED: Sodium Chloride 0.9% W/ 20 mEq KCl/LITER 1,000 ML IV SCH (01:37)
[2020-07-04] MEDS ORDERED: HUMALOG SQ PRN (01:37)
[2020-07-04] MEDS ORDERED: Zofran 4 MG/2 ML VIAL IV PRN (01:37)
[2020-07-04] MEDS ORDERED: Zosyn 3.375 GM Vial IV ONE ×2 (02:31→04:15)
[2020-07-04] MEDS ORDERED: Sodium Chloride 100ML MINI-BAG PLUS 100 ML IV ONE ×2 (02:35→04:15)
[2020-07-04] MEDS: MORPHINE SULFATE 2 MG INJ IV PRN ×3 (02:38→10:47)
[2020-07-04] MEDS: Zosyn 3.375 GM Vial 3.375 GM in Sodium Chloride 100ML MINI-BAG PLUS 100 ML IV SCH ×2 (02:38→06:09)
[2020-07-04 05:28] LABS: Absolute Neutrophil Ct (ANC) 4.36 (1.4-6.9); BASOPHIL % 0.4 % (0.0-0.4); Basophil (Absolute #) 0.04 (0-0.4); Eosinophil % 1.3 % (0.00-5.0); Eosinophil (Absolute #) 0.12 (0-0.5); Hematocrit 38.4 % (35-47); Hemoglobin 12.6 gm/dl (12.0-16.0); Lymphocyte (Absolute #) 3.88 (1.0-4.6); Lymphocytes % 43.2 % (24.0-44.0); Mean Cell Volume 96.5 fl (78-100); Mean Corpuscular Hemoglobin 31.7 pg (26-32); Mean Corpuscular Hgb Concent. 32.8 g/dl (32-36); Mean Platelet Volume 9.7 fl (7.5-11.0); Monocyte (Absolute #) 0.59 (0.0-1.3); Monocytes % 6.6 % (0.0-12.0); Neutrophil % 48.5 % (36.0-66.0); Platelet Count 364 K/mm3 (150-450); Red Blood Count 3.98 M/mm3 (4.1-5.4); Red Cell Distribution Width 13.7 % (11.5-14.0)
[2020-07-04 06:03] LABS: ALBUMIN 3.4 g/dL (3.5-5.0); ALKALINE PHOSPHATASE 118 U/L (38-126); ANION GAP 13.9 MEQ/L (5-15); BLOOD UREA NITROGEN 11 mg/dL (7-17); CHLORIDE 104 mmol/L (98-107); Calcium 8.9 mg/dL (8.4-10.2); Carbon Dioxide 20 mmol/L (22-30); Creatinine 1 0.66 mg/dL (0.52-1.04); EST GLOMERULAR FILTRATION RATE > 60.0 ML/MIN; Glucose 189 mg/dL (74-106); Potassium 3.4 mmol/L (3.5-5.1); SGOT/AST 25 U/L (14-36); SGPT/ALT 29 U/L (0-35); SODIUM 135 mmol/L (137-145); Total Protein 6.3 g/dL (6.3-8.2)
[2020-07-04] MEDS ORDERED: PROTONIX 40 MG IV IV SCH (10:00)
[2020-07-04] MEDS ORDERED: MEDROXYPROGESTERONE ACET IM SCH (10:30)
[2020-07-04] MEDS ORDERED: MEDICATION INTERVENTION PO SCH (10:45)
--- NOTE | 2020-07-04 10:50 | SSS ---
DISCHARGE DIAGNOSES: 1) ABDOMINAL PAIN. 2) PROTEINURIA. 3) DIABETES MELLITUS TYPE I. HISTORY: The patient is a 35 year-old white female who presented herself to the emergency room complaining of right flank pain. She reports the pain had gotten worse throughout the day. She denies any other symptoms. She has had no nausea, no vomiting, no diarrhea, no blood in the stool, no constipation. The patient does see diabetic specialist nurse practitioner in [place] for diabetes mellitus type I. PAST MEDICAL/SURGICAL HISTORY: Fibromyalgia. Peripheral neuropathy. She does have a diabetic pump which was placed but had it removed. section x2. HOME MEDICATIONS: Insulin Aspart 14 units subcu AC and Toujeo 34 units at night. She takes Depo-Provera shots once every three months and Savella 100 mg b.i.d. for fibromyalgia. ALLERGIES: NKDA. PHYSICAL EXAMINATION: Her vital signs on admission showed her temperature 98.5F, pulse 120, blood pressure 136/93, respiratory rate 18. O2 saturation 100%. HEENT: Normocephalic, atraumatic. Pupils equal round reactive to light. Extraocular movements intact. Oropharynx is pink and moist. NECK: Supple without lymphadenopathy, thyromegaly or JVD. CHEST: Clear to auscultation. HEART: Regular rate and rhythm. No murmurs, rubs or gallops. ABDOMEN: Soft, mildly tender in the right flank area but no palpable masses were felt. EXTREMITIES: Without cyanosis, clubbing or edema. NEUROLOGIC: The patient is alert and oriented x3. No focal deficits were noted. LAB DATA AND TESTS: The patient's evaluations in the emergency room included CT scan of the abdomen and pelvis which showed some swelling or flattening from decreased air in the colon on the right side but nothing else was seen. Gallbladder ultrasound was also looked at in comparison and was essentially unremarkable. She had no stones or hydronephrosis seen in the right kidney. Her 12-lead EKG showed sinus tachycardia but otherwise was normal. She had HCG which was negative. Her sugar was 295, BUN 14, creatinine 0.67. Electrolytes showed sodium slightly low at 132. Liver enzymes slightly elevated. SGPT 36. Alkaline phosphatase 153. Amylase and lipase were normal. Her CBC was normal with white count of 10,000, hemoglobin 14.7, PLT count of 289,000. COVID, influenza and RSV were negative. Her UA showed specific gravity 1.030 and had significant proteinuria at greater than 500 as well as her glucose, 0-2 red blood cells and 0-2 white blood cells per high power field. Her venous blood gas showed a pH of 7.45, pCO2 31. HOSPITAL COURSE: The patient was admitted to the [facility] [place] after getting IV Zosyn and IV fluids. By the next morning the patient was hungry and was wanting to eat. She had minimal tenderness and no other problems were noted. The patient was felt to be ready for advancing her diet and if she tolerated that well she will be discharged home. She will follow up in the office at which time we will check 24 hour urine protein to see if there is an issue with that since she has diabetes. Her BUN and creatinine however were noted to be normal as were the CT scans in that area as well. She will continue her usual medications and follow up in my office in one week.
[2020-07-04] MEDS ORDERED: INSULIN ASPART 14 UNIT SQ SCH (11:30)
[2020-07-04] MEDS ORDERED: [UNRECOGNIZED DRUG - OTHER] SQ SCH (11:30)
[2020-07-04] MEDS ORDERED: HUMALOG SQ SCH (11:30)
[2020-07-04 12:01] VITALS: BP 136/81; PULSE 101; O2SAT 95
[2020-07-04] MEDS ORDERED: INSULIN GLARGINE HUM REC ANLOG 34 UNIT SQ SCH (22:00)
[2020-07-04] MEDS ORDERED: Lantus Insulin SQ SCH (22:00)
[2020-07-04] MEDS ORDERED: MILNACIPRAN HCL 100 MG PO SCH (22:00)
--- NOTE | 2020-07-04 22:52 | XRAY ---
Exam: CT of the abdomen and pelvis with IV contrast from 07/03/2000. Comparison: None. Indication: 35-year-old female with generalized abdominal pain, right-sided abdominal pain associated with nausea which began today. The patient gives a history of 3 prior sections and a dilation and curettage. Technique: Post-IV contrast axial images were obtained through the abdomen and pelvis during automated injection of 80 ML's of Isovue 370 IV contrast material. Reconstructed coronal and sagittal images were created and reviewed. Delayed axial images were obtained through the abdomen and pelvis as well. Findings: The lung bases reveal some minimal linear scarring/atelectasis at the anterior medial right lung base and the posterior medial left lung base. No posterior pleural fluid is seen. The liver appears of unremarkable size and is remarkable for a small ill-defined hypodensity measuring 5-6 mm in diameter within the upper left hepatic lobe on axial image #18. This is too small to characterize. The remainder of the liver reveals an unremarkable uniform attenuation. No intrahepatic biliary duct distention is seen. The gallbladder is distended and reveals no dense calcifications within it. The spleen is of normal size and reveals no mass. The pancreas and adrenal glands appear unremarkable. The kidneys reveal a couple small cysts within the right kidney, the larger measuring 1.2 cm in diameter within the lower pole. There is no solid renal mass or hydronephrosis. No renal calculi are seen. No ureteral calculi are seen. Mild atherosclerotic vascular calcification is seen within the distal abdominal aorta. No abdominal aortic aneurysm or abnormal retroperitoneal lymphadenopathy is seen. A retroaortic left renal vein is incidentally seen. There is no free intraperitoneal air. A minimal fat-containing umbilical hernia is seen. No bowel containing ventral hernia is seen. There are segments of underdistended colon with possibly chronic mucosal thickening along the ascending to mid transverse colon where the vasa recta appears somewhat prominent. The sigmoid colon appears decompressed. I see no significant surrounding inflammatory changes. There is no evidence of bowel obstruction. The uterus appears anteflexed. No abnormal pelvic mass, pelvic lymphadenopathy, or free intraperitoneal fluid is seen. I see no findings of appendicitis within the right lower quadrant. The inguinal regions appear unremarkable. The skeleton reveals no acute fracture or aggressive bone lesion. Impression: 1. Mild thickened appearance along the proximal colon could possibly be due to mild colitis, or alternatively, underdistended bowel. 2. Other incidental findings, as discussed above. No other acute process is seen.
== END 2020-07-04 12:17 | disposition home or self-care (01) ==
LOC: ED 20:34 → MED SURG 07-04 01:25
PROVIDERS: ADMIT Family Medicine; ATTEND Family Medicine
DX: R10.11 Right upper quadrant pain (principal); E10.9 Type 1 diabetes mellitus without complications; R80.9 Proteinuria, unspecified; Z79.899 Other long term (current) drug therapy; Z79.4 Long term (current) use of insulin; Z20.828 Contact with and (suspected) exposure to other viral communicable diseases
CPT/HCPCS: 0241U; 36000; 36415; 74177; 80053; 81001; 82150; 82805; 83036; 83690; 84703; 85025; 96360; 96365; 96374; 96375; 99285; G0378; J1817; J2270; J2405

== ENCOUNTER 2020-07-04 21:34 | Emergency (ER) | payer OTHER ==
[2020-07-04] MEDS ORDERED: TORAdol 30 mg Injection IV ONE (22:31)
[2020-07-04] MEDS ORDERED: Zofran 4 MG/2 ML VIAL IV ONE (22:31)
[2020-07-04] MEDS ORDERED: Sodium Chloride 0.9% 1000 ML 1,000 ML IV SCH (22:45)
[2020-07-04] MEDS ORDERED: TORAdol 30 mg Injection ONE (23:25)
[2020-07-04] MEDS ORDERED: Zofran 4 MG/2 ML VIAL ONE (23:25)
[2020-07-04] MEDS ORDERED: Sodium Chloride 0.9% 1000 ML 1,000 ML ONE (23:25)
[2020-07-04 23:35] LABS: Absolute Neutrophil Ct (ANC) 5.32 (1.4-6.9); BASOPHIL % 0.4 % (0.0-0.4); Basophil (Absolute #) 0.04 (0-0.4); Eosinophil % 1.5 % (0.00-5.0); Eosinophil (Absolute #) 0.14 (0-0.5); Hematocrit 35.8 % (35-47); Hemoglobin 11.8 gm/dl (12.0-16.0); Lymphocyte (Absolute #) 3.28 (1.0-4.6); Lymphocytes % 35.2 % (24.0-44.0); Mean Cell Volume 96.8 fl (78-100); Mean Corpuscular Hemoglobin 31.9 pg (26-32); Mean Platelet Volume 9.7 fl (7.5-11.0); Monocyte (Absolute #) 0.54 (0.0-1.3); Monocytes % 5.8 % (0.0-12.0); Neutrophil % 57.1 % (36.0-66.0); Platelet Count 362 K/mm3 (150-450); Red Cell Distribution Width 13.6 % (11.5-14.0); White Blood Count 9.3 K/mm3 (4.0-10.5)
[2020-07-04 23:40] LABS: Appearance SLIGHTLY CLOUDY (CLEAR); Bilirubin NEGATIVE (NEGATIVE); Blood NEGATIVE Ery/ul (0-5); Epithelial Cells RARE /HPF (FEW); Glucose >=500 mg/dL (NEGATIVE); Ketones NEGATIVE (NEGATIVE); Leukocyte Esterase NEGATIVE (NEGATIVE); Mucus SLIGHT /HPF (NEGATIVE); Nitrite NEGATIVE (NEGATIVE); Protein,Urine Dip >=500 (Negative); RBC 0-2 /HPF (0-2); Specific Gravity 1.024 (1.005-1.025); Urobilinogen NEGATIVE mg/dL (0-1); WBC 0-2 /HPF (0-5)
[2020-07-04 23:49] LABS: ALBUMIN 3.6 g/dL (3.5-5.0); ALKALINE PHOSPHATASE 108 U/L (38-126); ANION GAP 13.9 MEQ/L (5-15); BLOOD UREA NITROGEN 10 mg/dL (7-17); CHLORIDE 107 mmol/L (98-107); Calcium 9.1 mg/dL (8.4-10.2); Carbon Dioxide 18 mmol/L (22-30); Creatinine 1 0.64 mg/dL (0.52-1.04); EST GLOMERULAR FILTRATION RATE > 60.0 ML/MIN; Glucose 262 mg/dL (74-106); LIPASE 64 U/L (23-300); SGOT/AST 35 U/L (14-36); SGPT/ALT 28 U/L (0-35); SODIUM 135 mmol/L (137-145); Total Protein 6.5 g/dL (6.3-8.2)
[2020-07-04 23:50] LABS: Potassium 4.2 mmol/L (3.5-5.1)
[2020-07-05 01:08] VITALS: O2SAT 98
--- NOTE | 2020-07-05 02:17 | ERPHSYRPT ---
- History of Present Illness Time Seen by Provider: 07/04/20 22:00 Historian: patient Exam Limitations: no limitations Patient Subjective Stated Complaint: pt states she was in the er yesterday for rt abd pain. today she has pain in the rt abd and rt flank. states pain in her flank and lower back are new Triage Nursing Assessment: pt alert and oriented, answers questions approp. pt ambulatory with steady gait noted, respirations nonlabored with lungs cta. abd soft and nontender to light palpation, bowel sounds present x4 and hyper. Physician History: Patient is a 35-year-old female with history of type 1 diabetes presents to our ED with complaints of 'nausea right abdominal pain flank pain, and back pain. Patient was in our ED yesterday for abdominal pain. Patient was discharged home. Patient's pain today is different in location and character from her pain yesterday. No associated vomiting. No diarrhea. No trauma. No fever. No chest pain or shortness of breath. Symptoms are mild to moderate in intensity. No dysuria urinary frequency or hematuria. Symptoms are constant. No specific worsening or improving factors. Patient voices no other complaints or concerns at this time. Timing/Duration: yesterday Activities at Onset: none Quality: aching Abdominal Pain Onset Location: other (Right-sided abdominal pain right flank and low back) Pain Radiation: no radiation Severity of Pain-Max: moderate Severity of Pain-Current: mild Modifying Factors: Improves With: nothing Associated Symptoms: denies symptoms Previous symptoms: different symptoms Allergies/Adverse Reactions: No Known Drug Allergies Allergy (Verified 07/04/20 22:02) Home Medications: Medroxyprogesterone Acet [Depo-Provera] 150 mg IM Q90D 09/10/19 [History] Insulin Aspart (Niacinamide) [Fiasp 100 Unit/ml Flextouch] 14 units SQ AC 07/03/20 [History] Insulin Glargine,Hum.rec.anlog [Toujoano Solostar] 34 units SQ HS 07/04/20 [History] Milnacipran HCl [Savella] 100 mg PO BID 07/04/20 [History] Hx Tetanus, Diphtheria Vaccination/Date Given: Yes Hx Influenza Vaccination/Date Given: No Hx Pneumococcal Vaccination/Date Given: No Immunizations Up to Date: Yes Travel Risk - International Travel Have you traveled outside of the country in past 3 weeks: No - Coronavirus Screening Are you exhibiting any of the following symptoms?: No Close contact with a COVID-19 positive Pt in past 14-21 Days: No - Vaccine Status Have you recieved a Covid-19 vaccination: No - Review of Systems Constitutional: No Symptoms, No Fever, No Chills Eyes: No Symptoms Ears, Nose, & Throat: No Symptoms Respiratory: No Symptoms, No Cough, No Dyspnea Cardiac: No Symptoms, No Chest Pain, No Edema, No Syncope Abdominal/Gastrointestinal: No Symptoms, No Abdominal Pain, No Nausea, No Vomiting, No Diarrhea Genitourinary Symptoms: No Symptoms, No Dysuria Musculoskeletal: No Symptoms, No Back Pain, No Neck Pain Skin: No Symptoms, No Rash Neurological: No Symptoms, No Dizziness, No Focal Weakness, No Sensory Changes Psychological: No Symptoms Endocrine: No Symptoms Hematologic/Lymphatic: No Symptoms Immunological/Allergic: No Symptoms All Other Systems: Reviewed and Negative - Past Medical History Pertinent Past Medical History: Yes Neurological History: Peripheral Neuropathy ENT History: No Pertinent History Cardiac History: No Pertinent History Respiratory History: No Pertinent History Endocrine Medical History: Diabetes Type I Musculoskeletal History: Arthritis, Fibromyalgia GI Medical History: Pancreatitis History: No Pertinent History Psycho-Social History: Anxiety, Depression Female Reproductive Disorders: No Pertinent History Other Medical History: Was taken off of diabetic pump and put on sub q insulin coverage- sees [facility] dip unit operator (Abigail Krishnan). - Past Surgical History Past Surgical History: Yes Neuro Surgical History: No Pertinent History Cardiac: No Pertinent History Respiratory: No Pertinent History Gastrointestinal: No Pertinent History Genitourinary: No Pertinent History Musculoskeletal: No Pertinent History Female Surgical History: Dilation & Curettage, Section Other Surgical History: cs x2 - Social History Smoking Status: Current every day smoker How long have you smoked: 20 years Exposure to second hand smoke: No Alcohol Use: None Drug Use: none Patient Lives Alone: No Significant Family History: heart disease, diabetes - Female History Hx Last Menstrual Period: depo Hx Now: No - Nursing Vital Signs Nursing Vital Signs: Initial Vital Signs Temperature 99.9 F 07/04/20 21:51 Pulse Rate 110 H 07/04/20 21:51 Respiratory Rate 16 07/04/20 21:51 Blood Pressure 188/97 07/04/20 21:51 O2 Sat by Pulse Oximetry 100 07/04/20 21:51 Pain Scale Pain Intensity 5 - Physical Exam General Appearance: no apparent distress, alert, other Eye Exam: PERRL/EOMI, eyes nml inspection Ears, Nose, Throat Exam: normal ENT inspection, TMs normal, pharynx normal, moist mucous membranes Neck Exam: normal inspection, non-tender, supple, full range of motion Respiratory Exam: normal breath sounds, lungs clear, airway intact, No chest tenderness, No respiratory distress Cardiovascular Exam: regular rate/rhythm, normal heart sounds, normal peripheral pulses Gastrointestinal/Abdomen Exam: soft, tenderness, other (Tenderness to right lower abdomen right flank and low back. Overlying soft tissue intact. No signs of trauma.), No mass Pelvic Exam: not done Rectal Exam: deferred Back Exam: normal inspection, normal range of motion, No CVA tenderness, No vertebral tenderness Extremity Exam: normal inspection, normal range of motion, pelvis stable Neurologic Exam: alert, oriented x 3, cooperative, normal mood/affect, nml cerebellar function, sensation nml, No motor deficits Skin Exam: normal color, warm, dry Lymphatic Exam: No adenopathy SpO2 Interpretation: normal SpO2: 98 O2 Delivery: Room Air - Course Nursing assessment & vital signs reviewed: Yes - CT Exams Abdomen/Pelvis CT Interpretation: Tele-radiologist Report (No acute findings on CT abdomen pelvis.) Ordered Tests: Active Orders 24 hr Category Date Time Status IV Insertion STAT Care 07/04/20 22:31 Active ABDOMEN AND PELVIS W CONTRAST [CT] Stat Exams 07/04/20 23:46 Taken CBC W DIFF Stat Lab 07/04/20 23:25 Completed CMP Stat Lab 07/04/20 23:25 Completed LIPASE Stat Lab 07/04/20 23:25 Completed UA W/RFX UR CULTURE Stat Lab 07/04/20 22:36 Completed Medication Summary Generic Name Dose Route Start Last Admin Trade Name Freq PRN Reason Stop Dose Admin Sodium Chloride 1,000 mls @ 100 mls/hr 07/04/20 22:45 07/04/20 23:26 Sodium Chloride 0.9% 1000 Ml IV 08/03/20 22:44 100 mls/hr .Q10H ELOY Administration Discontinued Medications Generic Name Dose Route Start Last Admin Trade Name Freq PRN Reason Stop Dose Admin Ketorolac Tromethamine 30 mg 07/04/20 22:31 07/04/20 23:26 Toradol 30 Mg Injection IV 07/04/20 22:32 30 mg STAT ONE Administration Ketorolac Tromethamine Confirm 07/04/20 23:25 Toradol 30 Mg Injection Administered 07/04/20 23:26 Dose 30 mg .ROUTE .STK-MED ONE Ondansetron HCl 4 mg 07/04/20 22:31 07/04/20 23:26 Zofran 4 Mg/2 Ml Vial IV 07/04/20 22:32 4 mg STAT ONE Administration Ondansetron HCl Confirm 07/04/20 23:25 Zofran 4 Mg/2 Ml Vial Administered 07/04/20 23:26 Dose 4 mg .ROUTE .STK-MED ONE Lab/Rad Data: Laboratory Result Diagrams 07/04/20 23:25 07/04/20 23:25 Laboratory Results 07/04/20 07/04/20 07/04/20 Range/Units 23:25 23:25 22:36 WBC 9.3 (4.0-10.5) K/mm3 RBC 3.70 L (4.1-5.4) M/mm3 Hgb 11.8 L (12.0-16.0) gm/dl Hct 35.8 (35-47) % MCV 96.8 (78-100) fl MCH 31.9 (26-32) pg MCHC 33.0 (32-36) g/dl RDW 13.6 (11.5-14.0) % Plt Count 362 (150-450) K/mm3 MPV 9.7 (7.5-11.0) fl Gran % 57.1 (36.0-66.0) % Eos # (Auto) 0.14 (0-0.5) Absolute Lymphs (auto) 3.28 (1.0-4.6) Absolute Monos (auto) 0.54 (0.0-1.3) Lymphocytes % 35.2 (24.0-44.0) % Monocytes % 5.8 (0.0-12.0) % Eosinophils % 1.5 (0.00-5.0) % Basophils % 0.4 (0.0-0.4) % Absolute Granulocytes 5.32 (1.4-6.9) Basophils # 0.04 (0-0.4) Sodium 135 L (137-145) mmol/L Potassium 4.2 D (3.5-5.1) mmol/L Chloride 107 (98-107) mmol/L Carbon Dioxide 18 L (22-30) mmol/L Anion Gap 13.9 (5-15) MEQ/L BUN 10 (7-17) mg/dL Creatinine 0.64 (0.52-1.04) mg/dL Estimated GFR > 60.0 ML/MIN Glucose 262 H (74-106) mg/dL Calcium 9.1 (8.4-10.2) mg/dL Total Bilirubin 0.50 (0.2-1.3) mg/dL AST 35 (14-36) U/L ALT 28 (0-35) U/L Alkaline Phosphatase 108 (38-126) U/L Serum Total Protein 6.5 (6.3-8.2) g/dL Albumin 3.6 (3.5-5.0) g/dL Lipase 64 (23-300) U/L Urine Color YELLOW (YELLOW) Urine Appearance SLIGHTLY CLOUDY (CLEAR) Urine pH 5.0 (5-6) Ur Specific [place] 1.024 (1.005-1.025) Urine Protein >=500 (Negative) Urine Ketones NEGATIVE (NEGATIVE) Urine Blood NEGATIVE (0-5) Rodney/ul Urine Nitrite NEGATIVE (NEGATIVE) Urine Bilirubin NEGATIVE (NEGATIVE) Urine Urobilinogen NEGATIVE (0-1) mg/dL Ur Leukocyte Esterase NEGATIVE (NEGATIVE) Urine WBC (Auto) 0-2 (0-5) /HPF Urine RBC (Auto) 0-2 (0-2) /HPF U Epithel Cells (Auto) RARE (FEW) /HPF Urine Bacteria (Auto) NONE (NEGATIVE) /HPF Urine Mucus (Auto) SLIGHT (NEGATIVE) /HPF Urine Culture Reflexed NO (NO) Urine Glucose >=500 (NEGATIVE) mg/dL - Progress Progress: improved Progress Note: Patient reassessed. Pain improved. Urinalysis reveals proteinuria and glucosuria. Renal function otherwise within normal limits. No UTI. Glucose is 262. CT abdomen pelvis negative for acute pathology. States she is currently working with Dr. Wilcox to figure out why her urine proteins are excessive. Zack meléndez feels well. She is currently requesting discharge. Patient agrees to follow-up with her primary care doctor within 48 hours for reevaluation. Patient voices no other complaints or concerns at this time. 07/05/20 02:33 Counseled pt/family regarding: lab results, diagnosis, need for follow-up, rad results - Departure Departure Disposition: Home Clinical Impression: Abdominal pain, Proteinuria, Glucosuria Condition: Stable Critical Care Time: No Referrals: FROILAN FRANCO [Primary Care Provider] - Additional Instructions: Discharge/Care Plan JUAN SHARMA was seen on 07/05/20 in the Emergency Room. The patient was counseled regarding Diagnosis,Lab results, Imaging studies, need for follow up and when to return to the Emergency Room. Prescriptions given: Discharge Note I have spoken with the patient and/or caregivers. I have explained the patient's condition, diagnosis and treatment plan based on the information available to me at this time. I have answered the patient's and/or caregiver's questions and addressed any concerns. The patient and/or caregivers have as good understanding of the patient's diagnosis, condition and treatment plan as can be expected at this point. The vital signs have been stable. The patient's condition is stable and appropriate for discharge from the emergency department. The patient will pursue further outpatient evaluation with the primary care physician or other designated or consulting physician as outlined in the discharge instructions. The patient and/or caregivers are agreeable to this plan of care and follow-up instructions have been explained in detail. The patient and/or caregivers have received these instruction. The patient/and or caregivers are aware that any significant change in condition or worsening of symptoms should prompt an immediate return to this or the closest emergency department or call 911.
[2020-07-05 02:39] VITALS: BP 178/99; PULSE 97
--- NOTE | 2020-07-05 23:40 | XRAY ---
Exam: CT of the abdomen and pelvis with IV contrast from 07/05/2020. CTDI: 4.08 mGy Comparison: CT of the abdomen and pelvis with IV contrast from 07/03/2020. Indication: 35-year-old female with right lower quadrant pain 2 days with new onset of right flank pain 1 day with associated nausea; patient was diagnosed with colitis and admitted on 07/03/2020, treated with antibiotics, and discharged on 07/04/2020. Technique: Post-IV contrast axial images were obtained through the abdomen and pelvis during automated injection of 80 cc of Isovue-370 contrast material. No oral contrast was given. Delayed axial images were obtained. Reconstructed coronal and sagittal images were created and reviewed. Findings: The lung bases reveal minimal linear atelectasis/scarring at the anterior medial right lung base and anterior left lung base. No posterior pleural fluid is seen. The liver appears of unremarkable size. Prior tiny hypodensity within the upper portion of the left lobe of the liver is not as well-seen on the current study. It may be barely detected on delay axial image #15. It is too small to characterize. No other hepatic mass or intrahepatic biliary duct distention is seen. The gallbladder is mildly distended and reveals no dense calcifications within it. The spleen, pancreas, and adrenal glands appear unremarkable. The kidneys are of unremarkable size. A couple small cysts are again seen within the right kidney. I see no definite renal calculi or hydronephrosis. There is no evidence of abdominal aortic aneurysm. Minimal vascular calcification is seen with the distal abdominal aorta. No abnormal retro-peritoneal lymphadenopathy is seen. Incidentally, I note moderate secretions/fluid within the stomach lumen. There is a tiny fat-containing umbilical hernia. No free intraperitoneal air is seen. I see no evidence of bowel obstruction or significant bowel wall thickening. There is no evidence of appendicitis within the right lower quadrant. The uterus is anteflexed and is of unremarkable size. The pelvic adnexa appear unremarkable. No abnormally enlarged pelvic lymph nodes or free intraperitoneal fluid is seen. The urinary bladder appears unremarkable. The deep pelvic sidewalls are normal. There appears to be a mild amount of stool within the distal rectosigmoid colon. The skeleton reveals no acute fracture or other aggressive bone lesion. Impression: 1. No acute intra-abdominal or pelvic findings are seen, as discussed above.
== END 2020-07-05 02:37 | disposition home or self-care (01) ==
LOC: ED 21:34
DX: R10.9 Unspecified abdominal pain (principal); R80.9 Proteinuria, unspecified; R81 Glycosuria
CPT/HCPCS: 36415; 74177; 80053; 81001; 83690; 85025; 96374; 96375; 99284; J1885; J2405

== ENCOUNTER 2020-08-01 16:55 | Emergency (ER) | payer OTHER ==
[2020-08-01 18:07] LABS: Absolute Neutrophil Ct (ANC) 4.42 (1.4-6.9); BASOPHIL % 0.5 % (0.0-0.4); Basophil (Absolute #) 0.04 (0-0.4); Eosinophil (Absolute #) 0.08 (0-0.5); Hematocrit 48.2 % (35-47); Hemoglobin 15.3 gm/dl (12.0-16.0); Lymphocyte (Absolute #) 3.13 (1.0-4.6); Lymphocytes % 38.5 % (24.0-44.0); Mean Cell Volume 97.4 fl (78-100); Mean Corpuscular Hemoglobin 30.9 pg (26-32); Mean Corpuscular Hgb Concent. 31.7 g/dl (32-36); Mean Platelet Volume 9.9 fl (7.5-11.0); Monocyte (Absolute #) 0.45 (0.0-1.3); Monocytes % 5.5 % (0.0-12.0); Neutrophil % 54.5 % (36.0-66.0); Platelet Count 304 K/mm3 (150-450); Red Blood Count 4.95 M/mm3 (4.1-5.4); Red Cell Distribution Width 12.6 % (11.5-14.0); White Blood Count 8.1 K/mm3 (4.0-10.5)
--- NOTE | 2020-08-01 18:12 | ERPHSYRPT ---
- History of Present Illness Time Seen by Provider: 08/01/20 17:25 Historian: patient Exam Limitations: no limitations Patient Subjective Stated Complaint: Pt states that she has been having pain in her right lower back for the past week, possible flank pain Triage Nursing Assessment: Pt was brought to the ER by her mother, tachycardic, hypertensive, pain to right lower back, possible flank pain, some mild pain to the right lower quadrant, had 24 hour urine study done this week with Dr. Wilcox and it showed over 3000 protein, type 1 diabetic, doesn't appear to be in any distress Physician History: This is a 35-year-old insulin-dependent diabetic white female who has had worsening back/flank pain in the last week. Patient was seen in this emergency department on 07/04/2020 with the same diagnosis. She was admitted into the hospital with the diagnosis of abdominal pain, flank pain and colitis. She was treated in the hospital with Zosyn intravenously. Patient was then discharged to home on 07/05/2020 but then returned with the same complaint of abdominal/flank pain and back pain. She was discharged to home from the emergency department. Patient has history of arthritis, fibromyalgia and pancreatitis as well. Dr. Wilcox had the patient undergo a 24-hour urine test on 07/26/2020. Her total urine protein level was over 3000. She is here today primarily for worsening pain in her flank and back. She did not suffer any acute traumatic injury. Activities at Onset: none Quality: aching Abdominal Pain Onset Location: flank (Lateral) Pain Radiation: no radiation Severity of Pain-Max: moderate Severity of Pain-Current: moderate Modifying Factors: Improves With: nothing Associated Symptoms: back Previous symptoms: same symptoms as today Allergies/Adverse Reactions: No Known Drug Allergies Allergy (Verified 08/01/20 17:27) Home Medications: Medroxyprogesterone Acet [Depo-Provera] 150 mg IM Q90D 09/10/19 [History] Insulin Aspart (Niacinamide) [Fiasp 100 Unit/ml Flextouch] 14 units SQ AC 07/03/20 [History] Insulin Glargine,Hum.rec.anlog [Toujeo Solostar] 34 units SQ HS 07/04/20 [History] Milnacipran HCl [Savella] 100 mg PO BID 07/04/20 [History] Hx Tetanus, Diphtheria Vaccination/Date Given: Yes Hx Influenza Vaccination/Date Given: No Hx Pneumococcal Vaccination/Date Given: No Travel Risk - International Travel Have you traveled outside of the country in past 3 weeks: No - Coronavirus Screening Are you exhibiting any of the following symptoms?: No Close contact with a COVID-19 positive Pt in past 14-21 Days: No - Vaccine Status Have you recieved a Covid-19 vaccination: No - Review of Systems Constitutional: No Symptoms Eyes: No Symptoms Ears, Nose, & Throat: No Symptoms Respiratory: No Symptoms Cardiac: No Symptoms Abdominal/Gastrointestinal: No Symptoms Genitourinary Symptoms: Flank Pain (Neuro) Musculoskeletal: Back Pain, No Injury Skin: No Symptoms Neurological: No Symptoms Psychological: No Symptoms Endocrine: No Symptoms Hematologic/Lymphatic: No Symptoms Immunological/Allergic: No Symptoms All Other Systems: Reviewed and Negative - Past Medical History Pertinent Past Medical History: Yes Neurological History: Peripheral Neuropathy ENT History: No Pertinent History Cardiac History: No Pertinent History Respiratory History: No Pertinent History Endocrine Medical History: Diabetes Type I Musculoskeletal History: Arthritis, Fibromyalgia GI Medical History: Pancreatitis History: No Pertinent History Psycho-Social History: Anxiety, Depression Female Reproductive Disorders: No Pertinent History Other Medical History: Was taken off of diabetic pump and put on sub q insulin coverage- sees [facility] cuff folder (Abigail Krishnan). - Past Surgical History Past Surgical History: Yes Neuro Surgical History: No Pertinent History Cardiac: No Pertinent History Respiratory: No Pertinent History Gastrointestinal: No Pertinent History Genitourinary: No Pertinent History Musculoskeletal: No Pertinent History Female Surgical History: Dilation & Curettage, Section Other Surgical History: cs x2 - Social History Smoking Status: Current every day smoker How long have you smoked: 20 years Exposure to second hand smoke: Yes Alcohol Use: None Drug Use: none Patient Lives Alone: No Significant Family History: heart disease, diabetes - Female History Hx Now: No (depo) - Nursing Vital Signs Nursing Vital Signs: Initial Vital Signs Temperature 98.0 F 08/01/20 17:14 Pulse Rate 112 H 08/01/20 17:14 Blood Pressure 144/98 08/01/20 17:14 O2 Sat by Pulse Oximetry 98 08/01/20 17:14 Pain Scale Pain Intensity [Right Lower 9 Back] Pain Intensity 9 - Physical Exam General Appearance: no apparent distress, alert, anxiety Eye Exam: PERRL/EOMI, eyes nml inspection Ears, Nose, Throat Exam: normal ENT inspection, moist mucous membranes Neck Exam: normal inspection, non-tender, supple, full range of motion Respiratory Exam: normal breath sounds, lungs clear, airway intact, No chest tenderness, No respiratory distress Cardiovascular Exam: tachycardia (Mild) Gastrointestinal/Abdomen Exam: soft, normal bowel sounds, No tenderness Pelvic Exam: not done Rectal Exam: not done Back Exam: normal inspection, normal range of motion, CVA tenderness (Lateral pain), No vertebral tenderness Extremity Exam: normal inspection, normal range of motion, pelvis stable Neurologic Exam: alert, oriented x 3, cooperative, 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, normal mood/affect, nml cerebellar function, nml station & gait, sensation nml Skin Exam: normal color, warm, dry Lymphatic Exam: No adenopathy SpO2 Interpretation: normal SpO2: 98 O2 Delivery: Room Air - Course Nursing assessment & vital signs reviewed: Yes Ordered Tests: Active Orders 24 hr Category Date Time Status ABDOMEN AND PELVIS W/0 CONTRAS [CT] Stat Exams 08/01/20 17:33 Taken AMYLASE Stat Lab 08/01/20 17:56 Completed CBC W DIFF Stat Lab 08/01/20 17:56 Completed CMP Stat Lab 08/01/20 17:56 Completed CULTURE,URINE Stat Lab 08/01/20 17:39 Received LIPASE Stat Lab 08/01/20 17:56 Completed Lactic Acid Stat Lab 08/01/20 17:32 Completed UA W/RFX UR CULTURE Stat Lab 08/01/20 17:39 Completed Medication Summary Discontinued Medications Generic Name Dose Route Start Last Admin Trade Name Chaim PRN Reason Stop Dose Admin Ceftriaxone Sodium 1,000 mg 08/01/20 19:21 Rocephin 1000 Mg Inj IM 08/01/20 19:22 STAT ONE Lab/Rad Data: Laboratory Result Diagrams 08/01/20 17:56 08/01/20 17:56 Laboratory Results 08/01/20 08/01/20 08/01/20 Range/Units 17:56 17:56 17:39 WBC 8.1 (4.0-10.5) K/mm3 RBC 4.95 (4.1-5.4) M/mm3 Hgb 15.3 (12.0-16.0) gm/dl Hct 48.2 H (35-47) % MCV 97.4 (78-100) fl MCH 30.9 (26-32) pg MCHC 31.7 L (32-36) g/dl RDW 12.6 (11.5-14.0) % Plt Count 304 (150-450) K/mm3 MPV 9.9 (7.5-11.0) fl Gran % 54.5 (36.0-66.0) % Eos # (Auto) 0.08 (0-0.5) Absolute Lymphs (auto) 3.13 (1.0-4.6) Absolute Monos (auto) 0.45 (0.0-1.3) Lymphocytes % 38.5 (24.0-44.0) % Monocytes % 5.5 (0.0-12.0) % Eosinophils % 1.0 (0.00-5.0) % Basophils % 0.5 (0.0-0.4) % Absolute Granulocytes 4.42 (1.4-6.9) Basophils # 0.04 (0-0.4) Sodium 134 L (137-145) mmol/L Potassium 4.2 (3.5-5.1) mmol/L Chloride 103 (98-107) mmol/L Carbon Dioxide 18 L (22-30) mmol/L Anion Gap 17.3 H (5-15) MEQ/L BUN 13 (7-17) mg/dL Creatinine 0.62 (0.52-1.04) mg/dL Estimated GFR > 60.0 ML/MIN Glucose 244 H (74-106) mg/dL Lactic Acid (0.4-2.0) Calcium 9.5 (8.4-10.2) mg/dL Total Bilirubin 0.50 (0.2-1.3) mg/dL AST 30 (14-36) U/L ALT 20 (0-35) U/L Alkaline Phosphatase 77 (38-126) U/L Serum Total Protein 6.2 L (6.3-8.2) g/dL Albumin 3.6 (3.5-5.0) g/dL Amylase 37 (30-110) U/L Lipase 29 (23-300) U/L Urine Color EN (YELLOW) Urine Appearance SLIGHTLY CLOUDY (CLEAR) Urine pH 5.0 (5-6) Ur Specific [place] 1.026 (1.005-1.025) Urine Protein >=500 (Negative) Urine Ketones SMALL (NEGATIVE) Urine Blood SMALL (0-5) Rodney/ul Urine Nitrite NEGATIVE (NEGATIVE) Urine Bilirubin NEGATIVE (NEGATIVE) Urine Urobilinogen 2 (0-1) mg/dL Ur Leukocyte Esterase NEGATIVE (NEGATIVE) Urine WBC (Auto) 6-10 (0-5) /HPF Urine RBC (Auto) 0-2 (0-2) /HPF U Hyaline Cast (Auto) 3-5 (0-2) /LPF U Epithel Cells (Auto) RARE (FEW) /HPF Urine Bacteria (Auto) RARE (NEGATIVE) /HPF Urine Mucus (Auto) SLIGHT (NEGATIVE) /HPF Urine Culture Reflexed YES (NO) Urine Glucose >=500 (NEGATIVE) mg/dL 08/01/20 Range/Units 17:32 WBC (4.0-10.5) K/mm3 RBC (4.1-5.4) M/mm3 Hgb (12.0-16.0) gm/dl Hct (35-47) % MCV (78-100) fl MCH (26-32) pg MCHC (32-36) g/dl RDW (11.5-14.0) % Plt Count (150-450) K/mm3 MPV (7.5-11.0) fl Gran % (36.0-66.0) % Eos # (Auto) (0-0.5) Absolute Lymphs (auto) (1.0-4.6) Absolute Monos (auto) (0.0-1.3) Lymphocytes % (24.0-44.0) % Monocytes % (0.0-12.0) % Eosinophils % (0.00-5.0) % Basophils % (0.0-0.4) % Absolute Granulocytes (1.4-6.9) Basophils # (0-0.4) Sodium (137-145) mmol/L Potassium (3.5-5.1) mmol/L Chloride (98-107) mmol/L Carbon Dioxide (22-30) mmol/L Anion Gap (5-15) MEQ/L BUN (7-17) mg/dL Creatinine (0.52-1.04) mg/dL Estimated GFR ML/MIN Glucose (74-106) mg/dL Lactic Acid 3.4 H (0.4-2.0) Calcium (8.4-10.2) mg/dL Total Bilirubin (0.2-1.3) mg/dL AST (14-36) U/L ALT (0-35) U/L Alkaline Phosphatase (38-126) U/L Serum Total Protein (6.3-8.2) g/dL Albumin (3.5-5.0) g/dL Amylase (30-110) U/L Lipase (23-300) U/L Urine Color (YELLOW) Urine Appearance (CLEAR) Urine pH (5-6) Ur Specific [place] (1.005-1.025) Urine Protein (Negative) Urine Ketones (NEGATIVE) Urine Blood (0-5) Rodney/ul Urine Nitrite (NEGATIVE) Urine Bilirubin (NEGATIVE) Urine Urobilinogen (0-1) mg/dL Ur Leukocyte Esterase (NEGATIVE) Urine WBC (Auto) (0-5) /HPF Urine RBC (Auto) (0-2) /HPF U Hyaline Cast (Auto) (0-2) /LPF U Epithel Cells (Auto) (FEW) /HPF Urine Bacteria (Auto) (NEGATIVE) /HPF Urine Mucus (Auto) (NEGATIVE) /HPF Urine Culture Reflexed (NO) Urine Glucose (NEGATIVE) mg/dL - Progress Progress: improved, pain not gone completely, re-examined Progress Note: 08/01/20 19:22 Medical decision making: This patient has poor peripheral venous access. We are unable to obtain venous access. We were able to obtain a urine and blood work. The CAT scan of the abdomen pelvis is negative when compared to the CAT scans of the abdomen pelvis on 07/04/2020 and 07/05/2020. The patient does not have any acute emergent critical condition. She will likely need to have an evaluation by a trailer technician because of the protein that is in her urine. Patient is to drink plenty of fluids at home. We will treat her mild urinary tract infection with Rocephin in the hospital intramuscularly and outpatient Keflex. I will give her a dose of pain medicine here in the emergency department intramuscularly. Counseled pt/family regarding: lab results, diagnosis, need for follow-up, rad results - Departure Departure Disposition: Home Clinical Impression: Flank pain, Back pain, Proteinuria, UTI (urinary tract infection) Condition: Stable Critical Care Time: No Referrals: ALAN WILCOX [Primary Care Provider] - Additional Instructions: Drink plenty of fluids. Call your primary care doctor tomorrow and discuss the possibility of evaluation by a trailer technician if indicated. Take your medications as prescribed. Prescriptions: Cephalexin Mh 500 mg [Keflex 500 mg] 500 mg PO TID #21 capsule
[2020-08-01 18:20] LABS: Appearance SLIGHTLY CLOUDY (CLEAR); Bacteria RARE /HPF (NEGATIVE); Bilirubin NEGATIVE (NEGATIVE); Blood SMALL Ery/ul (0-5); Epithelial Cells RARE /HPF (FEW); Glucose >=500 mg/dL (NEGATIVE); Ketones SMALL (NEGATIVE); Leukocyte Esterase NEGATIVE (NEGATIVE); Mucus SLIGHT /HPF (NEGATIVE); Nitrite NEGATIVE (NEGATIVE); Protein,Urine Dip >=500 (Negative); RBC 0-2 /HPF (0-2); Specific Gravity 1.026 (1.005-1.025); Urobilinogen 2 mg/dL (0-1)
[2020-08-01 18:22] LABS: ALBUMIN 3.6 g/dL (3.5-5.0); ALKALINE PHOSPHATASE 77 U/L (38-126); AMYLASE 37 U/L (30-110); ANION GAP 17.3 MEQ/L (5-15); BLOOD UREA NITROGEN 13 mg/dL (7-17); CHLORIDE 103 mmol/L (98-107); Calcium 9.5 mg/dL (8.4-10.2); Carbon Dioxide 18 mmol/L (22-30); Creatinine 1 0.62 mg/dL (0.52-1.04); EST GLOMERULAR FILTRATION RATE > 60.0 ML/MIN; Glucose 244 mg/dL (74-106); LIPASE 29 U/L (23-300); Potassium 4.2 mmol/L (3.5-5.1); SGOT/AST 30 U/L (14-36); SODIUM 134 mmol/L (137-145); Total Protein 6.2 g/dL (6.3-8.2)
[2020-08-01 18:29] LABS: SGPT/ALT 20 U/L (0-35)
[2020-08-01] MEDS ORDERED: Rocephin 1000 MG INJ IM ONE (19:21)
[2020-08-01] MEDS ORDERED: MORPHINE SULFATE 4 MG INJ IM ONE (19:26)
[2020-08-01] MEDS ORDERED: ZOFRAN ODT 4 MG PO ONE (19:27)
[2020-08-01] MEDS ORDERED: ZOFRAN ODT 4 MG ONE ×2 (19:36→19:49)
[2020-08-01] MEDS ORDERED: Rocephin 1000 MG INJ ONE (19:37)
[2020-08-01] MEDS ORDERED: MORPHINE SULFATE 4 MG INJ ONE (19:37)
[2020-08-01 20:02] VITALS: BP 128/92; PULSE 122; O2SAT 100
--- NOTE | 2020-08-02 08:39 | XRAY ---
Indication: Right flank pain 1 week. Nausea. Multiple contiguous axial images obtained through the abdomen and pelvis without contrast using renal stone protocol. Comparison: July 05, 2020. Lung bases again demonstrates mild bibasilar fibrosis/scarring without infiltrate or effusion. Heart is not enlarged. No renal calculus or evidence for obstructive uropathy in either system. Noncontrasted stomach and bowel loops nonobstructed again with normal appendix. No free fluid/air. Remaining liver, gallbladder, pancreas, spleen, adrenal glands, kidneys, ureters, bladder, and uterus unremarkable for noncontrast exam. There remains minimal aortoiliac calcifications without aneurysm. Osseous structures intact. Impression: 1. Continued negative renal calculus or evidence for obstructive uropathy. 2. Remaining CT abdomen/pelvis without contrast exam is negative.
== END 2020-08-01 20:00 | disposition home or self-care (01) ==
LOC: ED 16:55
DX: R10.9 Unspecified abdominal pain (principal); R80.9 Proteinuria, unspecified; N39.0 Urinary tract infection, site not specified; M54.5 Low back pain
CPT/HCPCS: 36415; 74176; 80053; 81001; 82150; 83605; 83690; 85025; 87086; 96372; 99284; J0696; J2270; Q0162

== ENCOUNTER 2020-08-05 19:31 | Emergency (ER) | payer OTHER ==
[2020-08-05] MEDS ORDERED: Zofran 4 MG/2 ML VIAL IV ONE (19:56)
[2020-08-05] MEDS ORDERED: Sodium Chloride 0.9% 1000 ML 1,000 ML IV STA ×2 (19:56→20:48)
--- NOTE | 2020-08-05 20:00 | ERPHSYRPT ---
- History of Present Illness Time Seen by Provider: 08/05/20 19:35 Source: patient Exam Limitations: no limitations Patient Subjective Stated Complaint: Patient states " My sugar has been running high all day and I haven't ate anything today. I have given myself about 50U of Fiasp today and I cannot get my BS below 200. I have been in DKA before and I do not want to do that again." Triage Nursing Assessment: . Physician History: 35 years old type I diabetic with history of DKA's in the past presented in the ER with chief complaint of elevated blood sugar in 500s when she woke up this morning, has been giving insulin multiple times and is unable to bring it below 200. Patient blood sugar on presentation is 235. Reports some nausea but no vomiting. Complaining of mild pelvic cramping off and on but denies any urinary symptoms. Does have couple of episodes of loose stools today. Denies fever chills but feeling fatigued tired with lack of energy. Timing/Duration: today, constant, sudden, improved Severity: moderate Modifying Factors: Improves With: nothing Associated Symptoms: nausea, abdominal pain, malaise, weakness, No shortness of breath, No heartburn, No diaphoresis, No cough, No chills, No chest pain, No fever, No headaches, No loss of appetite, No rash, No syncope, No seizure Allergies/Adverse Reactions: No Known Drug Allergies Allergy (Verified 08/05/20 19:47) Home Medications: Medroxyprogesterone Acet [Depo-Provera] 150 mg IM Q90D 09/10/19 [History] Insulin Aspart (Niacinamide) [Fiasp 100 Unit/ml Flextouch] 14 units SQ AC 06/23 03/15 [History] Insulin Glargine,Hum.rec.anlog [Toujeo Solostar] 34 units SQ HS 07/04/20 [History] Milnacipran HCl [Savella] 100 mg PO BID 07/04/20 [History] Hx Tetanus, Diphtheria Vaccination/Date Given: Yes Hx Influenza Vaccination/Date Given: No Hx Pneumococcal Vaccination/Date Given: No Immunizations Up to Date: Yes Travel Risk - International Travel Have you traveled outside of the country in past 3 weeks: No - Coronavirus Screening Are you exhibiting any of the following symptoms?: No Close contact with a COVID-19 positive Pt in past 14-21 Days: No - Vaccine Status Have you recieved a Covid-19 vaccination: No - Review of Systems Constitutional: Fatigue, Weakness Eyes: No Symptoms Ears, Nose, & Throat: No Symptoms Respiratory: No Symptoms Cardiac: No Symptoms Abdominal/Gastrointestinal: Abdominal Pain, Nausea Genitourinary Symptoms: No Symptoms Musculoskeletal: Myalgias Skin: No Symptoms Neurological: No Symptoms Psychological: No Symptoms Endocrine: No Symptoms Hematologic/Lymphatic: No Symptoms Immunological/Allergic: No Symptoms - Past Medical History Pertinent Past Medical History: Yes Neurological History: Peripheral Neuropathy ENT History: No Pertinent History Cardiac History: No Pertinent History Respiratory History: No Pertinent History Endocrine Medical History: Diabetes Type I Musculoskeletal History: Arthritis, Fibromyalgia GI Medical History: Pancreatitis History: No Pertinent History Psycho-Social History: Anxiety, Depression Female Reproductive Disorders: No Pertinent History Other Medical History: Was taken off of diabetic pump and put on sub q insulin coverage- sees [facility] psychiatric lpn (Abigail Krishnan). - Past Surgical History Past Surgical History: Yes Neuro Surgical History: No Pertinent History Cardiac: No Pertinent History Respiratory: No Pertinent History Gastrointestinal: No Pertinent History Genitourinary: No Pertinent History Musculoskeletal: No Pertinent History Female Surgical History: Dilation & Curettage, Section Other Surgical History: cs x2 - Social History Smoking Status: Current every day smoker How long have you smoked: 20 years Exposure to second hand smoke: Yes Alcohol Use: None Drug Use: none Patient Lives Alone: No Significant Family History: heart disease, diabetes - Female History Hx Last Menstrual Period: Depo Shot Hx Now: No - Nursing Vital Signs Nursing Vital Signs: Initial Vital Signs Temperature 98.7 F 08/05/20 19:50 Pulse Rate 118 H 08/05/20 19:50 Respiratory Rate 18 08/05/20 19:50 Blood Pressure 138/95 08/05/20 19:50 O2 Sat by Pulse Oximetry 98 08/05/20 19:50 Pain Scale Pain Intensity 8 - Physical Exam General Appearance: no apparent distress, alert, anxiety Eye Exam: PERRL/EOMI, eyes nml inspection Ears, Nose, Throat Exam: normal ENT inspection, pharynx normal Neck Exam: normal inspection, non-tender, supple, full range of motion Respiratory Exam: normal breath sounds, lungs clear, No chest tenderness Cardiovascular Exam: normal heart sounds, tachycardia Back Exam: normal inspection, normal range of motion Extremity Exam: normal inspection, normal range of motion Neurologic Exam: alert, oriented x 3, cooperative, disciplinary hearing officer II-XII nml as tested, nml cerebellar function, nml station & gait, sensation nml, No motor deficits Skin Exam: normal color SpO2 Interpretation: normal SpO2: 98 O2 Delivery: Room Air Ordered Tests: Active Orders 24 hr Category Date Time Status IV Insertion STAT Care 08/05/20 19:56 Active POCT Glucose Check STAT Care 08/05/20 19:56 Active CBC W DIFF Stat Lab 08/05/20 20:13 Completed CMP Stat Lab 08/05/20 20:13 Completed HCG,QUALITATIVE URINE Stat Lab 08/05/20 19:58 Completed Lactic Acid Stat Lab 08/05/20 22:35 Received Lactic Acid Urgent Lab 08/05/20 19:56 Completed MAGNESIUM Stat Lab 08/05/20 20:13 Completed POCT GLUCOSE Stat Lab 08/05/20 19:44 Completed POCT GLUCOSE Stat Lab 08/05/20 22:35 Completed UA W/RFX UR CULTURE Stat Lab 08/05/20 19:58 Completed VENOUS BLOOD GAS Urgent Lab 08/05/20 19:57 Completed Medication Summary Discontinued Medications Generic Name Dose Route Start Last Admin Trade Name Freq PRN Reason Stop Dose Admin Sodium Chloride 1,000 mls @ 999 mls/hr 08/05/20 19:56 08/05/20 21:44 Sodium Chloride 0.9% 1000 Ml IV 08/05/20 20:56 Infused .Q1H1M STA Infusion Sodium Chloride Confirm 08/05/20 20:13 Sodium Chloride 0.9% 1000 Ml Administered 08/05/20 20:14 Dose 1,000 mls @ ud .ROUTE .STK-MED ONE Sodium Chloride 1,000 mls @ 999 mls/hr 08/05/20 20:48 08/05/20 22:28 Sodium Chloride 0.9% 1000 Ml IV 08/05/20 21:48 Infused .Q1H1M STA Infusion Sodium Chloride Confirm 08/05/20 20:59 Sodium Chloride 0.9% 1000 Ml Administered 08/05/20 21:00 Dose 1,000 mls @ ud .ROUTE .STK-MED ONE Ketorolac Tromethamine 30 mg 08/05/20 22:45 08/05/20 22:49 Toradol 30 Mg Injection IV 08/05/20 22:46 30 mg STAT ONE Administration Ketorolac Tromethamine Confirm 08/05/20 22:48 Toradol 30 Mg Injection Administered 08/05/20 22:49 Dose 30 mg .ROUTE .STK-MED ONE Ondansetron HCl 4 mg 08/05/20 19:56 08/05/20 20:16 Zofran 4 Mg/2 Ml Vial IV 08/05/20 19:57 4 mg STAT ONE Administration Ondansetron HCl Confirm 08/05/20 20:13 Zofran 4 Mg/2 Ml Vial Administered 08/05/20 20:14 Dose 4 mg .ROUTE .STK-MED ONE Lab/Rad Data: Laboratory Result Diagrams 08/05/20 20:13 08/05/20 20:13 Laboratory Results 08/05/20 08/05/20 08/05/20 Range/Units 22:35 20:13 20:13 WBC 9.7 (4.0-10.5) K/mm3 RBC 4.67 (4.1-5.4) M/mm3 Hgb 14.3 (12.0-16.0) gm/dl Hct 43.0 (35-47) % MCV 92.1 (78-100) fl MCH 30.6 (26-32) pg MCHC 33.3 (32-36) g/dl RDW 12.1 (11.5-14.0) % Plt Count 354 (150-450) K/mm3 MPV 9.9 (7.5-11.0) fl Gran % 56.7 (36.0-66.0) % Eos # (Auto) 0.04 (0-0.5) Absolute Lymphs (auto) 3.64 (1.0-4.6) Absolute Monos (auto) 0.48 (0.0-1.3) Lymphocytes % 37.4 (24.0-44.0) % Monocytes % 4.9 (0.0-12.0) % Eosinophils % 0.4 (0.00-5.0) % Basophils % 0.6 (0.0-0.4) % Absolute Granulocytes 5.52 (1.4-6.9) Basophils # 0.06 (0-0.4) pO2/FiO2 Ratio % VBG pH (7.32-7.42) VBG pCO2 at Pat Temp (42-55) mm/Hg VBG pO2 at Pat Temp (25-40) mm/Hg VBG HCO3 (22-28) meq/L VBG O2 Sat (Alejandra) (95-100) VBG Base Excess (-2.0-2.0) VBG Hemoglobin VBG Carboxyhemoglobin (0.0-6.9) % T HGB POC Potassium (3.5-5.1) Sodium 137 (137-145) mmol/L Potassium 3.6 (3.5-5.1) mmol/L Chloride 102 (98-107) mmol/L Carbon Dioxide 22 (22-30) mmol/L Anion Gap 16.4 H (5-15) MEQ/L BUN 11 (7-17) mg/dL Creatinine 0.60 (0.52-1.04) mg/dL Estimated GFR > 60.0 ML/MIN Glucose 170 H (74-106) mg/dL POC Glucometer 109 H (74 to 106) mg/dL Lactic Acid (0.4-2.0) Calcium 9.6 (8.4-10.2) mg/dL Magnesium 1.6 (1.6-2.3) mg/dL Total Bilirubin 0.50 (0.2-1.3) mg/dL AST 31 (14-36) U/L ALT 22 (0-35) U/L Alkaline Phosphatase 83 (38-126) U/L Serum Total Protein 7.1 (6.3-8.2) g/dL Albumin 4.1 (3.5-5.0) g/dL Urine Color (YELLOW) Urine Appearance (CLEAR) Urine pH (5-6) Ur Specific [place] (1.005-1.025) Urine Protein (Negative) Urine Ketones (NEGATIVE) Urine Blood (0-5) Rodney/ul Urine Nitrite (NEGATIVE) Urine Bilirubin (NEGATIVE) Urine Urobilinogen (0-1) mg/dL Ur Leukocyte Esterase (NEGATIVE) Urine WBC (Auto) (0-5) /HPF Urine RBC (Auto) (0-2) /HPF U Hyaline Cast (Auto) (0-2) /LPF U Epithel Cells (Auto) (FEW) /HPF Urine Bacteria (Auto) (NEGATIVE) /HPF Urine Mucus (Auto) (NEGATIVE) /HPF Urine Culture Reflexed (NO) Urine Glucose (NEGATIVE) mg/dL Urine HCG, Qual (Negative) 08/05/20 08/05/20 08/05/20 Range/Units 19:58 19:58 19:57 WBC (4.0-10.5) K/mm3 RBC (4.1-5.4) M/mm3 Hgb (12.0-16.0) gm/dl Hct (35-47) % MCV (78-100) fl MCH (26-32) pg MCHC (32-36) g/dl RDW (11.5-14.0) % Plt Count (150-450) K/mm3 MPV (7.5-11.0) fl Gran % (36.0-66.0) % Eos # (Auto) (0-0.5) Absolute Lymphs (auto) (1.0-4.6) Absolute Monos (auto) (0.0-1.3) Lymphocytes % (24.0-44.0) % Monocytes % (0.0-12.0) % Eosinophils % (0.00-5.0) % Basophils % (0.0-0.4) % Absolute Granulocytes (1.4-6.9) Basophils # (0-0.4) pO2/FiO2 Ratio 21.0 % VBG pH 7.41 (7.32-7.42) VBG pCO2 at Pat Temp 36 L (42-55) mm/Hg VBG pO2 at Pat Temp 45 H (25-40) mm/Hg VBG HCO3 22.8 (22-28) meq/L VBG O2 Sat (Alejandra) 77.2 L (95-100) VBG Base Excess -1.4 (-2.0-2.0) VBG Hemoglobin 14.8 VBG Carboxyhemoglobin 4.8 (0.0-6.9) % T HGB POC Potassium 3.7 (3.5-5.1) Sodium (137-145) mmol/L Potassium (3.5-5.1) mmol/L Chloride (98-107) mmol/L Carbon Dioxide (22-30) mmol/L Anion Gap (5-15) MEQ/L BUN (7-17) mg/dL Creatinine (0.52-1.04) mg/dL Estimated GFR ML/MIN Glucose (74-106) mg/dL POC Glucometer (74 to 106) mg/dL Lactic Acid (0.4-2.0) Calcium (8.4-10.2) mg/dL Magnesium (1.6-2.3) mg/dL Total Bilirubin (0.2-1.3) mg/dL AST (14-36) U/L ALT (0-35) U/L Alkaline Phosphatase (38-126) U/L Serum Total Protein (6.3-8.2) g/dL Albumin (3.5-5.0) g/dL Urine Color YELLOW (YELLOW) Urine Appearance CLEAR (CLEAR) Urine pH 6.0 (5-6) Ur Specific [place] 1.019 (1.005-1.025) Urine Protein >=500 (Negative) Urine Ketones SMALL (NEGATIVE) Urine Blood NEGATIVE (0-5) Rodney/ul Urine Nitrite NEGATIVE (NEGATIVE) Urine Bilirubin NEGATIVE (NEGATIVE) Urine Urobilinogen NEGATIVE (0-1) mg/dL Ur Leukocyte Esterase NEGATIVE (NEGATIVE) Urine WBC (Auto) 0-2 (0-5) /HPF Urine RBC (Auto) 3-5 (0-2) /HPF U Hyaline Cast (Auto) 0-2 (0-2) /LPF U Epithel Cells (Auto) RARE (FEW) /HPF Urine Bacteria (Auto) RARE (NEGATIVE) /HPF Urine Mucus (Auto) SLIGHT (NEGATIVE) /HPF Urine Culture Reflexed NO (NO) Urine Glucose 50 (NEGATIVE) mg/dL Urine HCG, Qual NEGATIVE (Negative) 08/05/20 08/05/20 Range/Units 19:56 19:44 WBC (4.0-10.5) K/mm3 RBC (4.1-5.4) M/mm3 Hgb (12.0-16.0) gm/dl Hct (35-47) % MCV (78-100) fl MCH (26-32) pg MCHC (32-36) g/dl RDW (11.5-14.0) % Plt Count (150-450) K/mm3 MPV (7.5-11.0) fl Gran % (36.0-66.0) % Eos # (Auto) (0-0.5) Absolute Lymphs (auto) (1.0-4.6) Absolute Monos (auto) (0.0-1.3) Lymphocytes % (24.0-44.0) % Monocytes % (0.0-12.0) % Eosinophils % (0.00-5.0) % Basophils % (0.0-0.4) % Absolute Granulocytes (1.4-6.9) Basophils # (0-0.4) pO2/FiO2 Ratio % VBG pH (7.32-7.42) VBG pCO2 at Pat Temp (42-55) mm/Hg VBG pO2 at Pat Temp (25-40) mm/Hg VBG HCO3 (22-28) meq/L VBG O2 Sat (Alejandra) (95-100) VBG Base Excess (-2.0-2.0) VBG Hemoglobin VBG Carboxyhemoglobin (0.0-6.9) % T HGB POC Potassium (3.5-5.1) Sodium (137-145) mmol/L Potassium (3.5-5.1) mmol/L Chloride (98-107) mmol/L Carbon Dioxide (22-30) mmol/L Anion Gap (5-15) MEQ/L BUN (7-17) mg/dL Creatinine (0.52-1.04) mg/dL Estimated GFR ML/MIN Glucose (74-106) mg/dL POC Glucometer 235 H (74 to 106) mg/dL Lactic Acid 3.9 H (0.4-2.0) Calcium (8.4-10.2) mg/dL Magnesium (1.6-2.3) mg/dL Total Bilirubin (0.2-1.3) mg/dL AST (14-36) U/L ALT (0-35) U/L Alkaline Phosphatase (38-126) U/L Serum Total Protein (6.3-8.2) g/dL Albumin (3.5-5.0) g/dL Urine Color (YELLOW) Urine Appearance (CLEAR) Urine pH (5-6) Ur Specific [place] (1.005-1.025) Urine Protein (Negative) Urine Ketones (NEGATIVE) Urine Blood (0-5) Rodney/ul Urine Nitrite (NEGATIVE) Urine Bilirubin (NEGATIVE) Urine Urobilinogen (0-1) mg/dL Ur Leukocyte Esterase (NEGATIVE) Urine WBC (Auto) (0-5) /HPF Urine RBC (Auto) (0-2) /HPF U Hyaline Cast (Auto) (0-2) /LPF U Epithel Cells (Auto) (FEW) /HPF Urine Bacteria (Auto) (NEGATIVE) /HPF Urine Mucus (Auto) (NEGATIVE) /HPF Urine Culture Reflexed (NO) Urine Glucose (NEGATIVE) mg/dL Urine HCG, Qual (Negative) - Progress Progress: improved, re-examined Progress Note: 08/05/20 23:36 35 years old is evaluated for uncontrolled diabetes mellitus. She is given fluids, work-up ruled out DKA, HHS. Her blood sugar improved to low 100s without any medication. Patient had elevated lactate without any focus of infection and improved with second bolus of fluid 2.9. She is counseled about blood sugar monitoring and dietary management. Discussed signs symptoms of worsening needing return to ER which she seems understanding. Abdominal exam nonsurgical, lungs bilateral clear to auscultation and not in any distress, do not think needs any imaging and is stable for discharge with outpatient follow- up. Counseled pt/family regarding: lab results, diagnosis, need for follow-up - Departure Departure Disposition: Home Clinical Impression: Hyperglycemia, Lactic acidosis Condition: Stable Critical Care Time: No Referrals: ALAN MORAN [Primary Care Provider] - Follow Up with PCP/3 days Instructions: Hyperglycemia, Adult (DC) Additional Instructions: Drink plenty of fluids. Monitor your blood sugar regularly, keep a log and follow-up with primary care. Return to ER for uncontrolled blood sugar or if have any fever chills, abdominal pain, chest pain, palpitations or shortness of breath etc.
[2020-08-05 20:10] LABS: Appearance CLEAR (CLEAR); Bacteria RARE /HPF (NEGATIVE); Bilirubin NEGATIVE (NEGATIVE); Blood NEGATIVE Ery/ul (0-5); Epithelial Cells RARE /HPF (FEW); Glucose 50 mg/dL (NEGATIVE); Hyaline Casts 0-2 /LPF (0-2); Ketones SMALL (NEGATIVE); Leukocyte Esterase NEGATIVE (NEGATIVE); Mucus SLIGHT /HPF (NEGATIVE); Nitrite NEGATIVE (NEGATIVE); Protein,Urine Dip >=500 (Negative); Specific Gravity 1.019 (1.005-1.025); Urobilinogen NEGATIVE mg/dL (0-1); WBC 0-2 /HPF (0-5)
[2020-08-05] MEDS ORDERED: Zofran 4 MG/2 ML VIAL ONE (20:13)
[2020-08-05] MEDS ORDERED: Sodium Chloride 0.9% 1000 ML 1,000 ML ONE ×2 (20:13→20:59)
[2020-08-05 20:17] LABS: Absolute Neutrophil Ct (ANC) 5.52 (1.4-6.9); BASOPHIL % 0.6 % (0.0-0.4); Basophil (Absolute #) 0.06 (0-0.4); Eosinophil % 0.4 % (0.00-5.0); Eosinophil (Absolute #) 0.04 (0-0.5); Hemoglobin 14.3 gm/dl (12.0-16.0); Lymphocyte (Absolute #) 3.64 (1.0-4.6); Lymphocytes % 37.4 % (24.0-44.0); Mean Cell Volume 92.1 fl (78-100); Mean Corpuscular Hemoglobin 30.6 pg (26-32); Mean Corpuscular Hgb Concent. 33.3 g/dl (32-36); Mean Platelet Volume 9.9 fl (7.5-11.0); Monocyte (Absolute #) 0.48 (0.0-1.3); Monocytes % 4.9 % (0.0-12.0); Neutrophil % 56.7 % (36.0-66.0); Platelet Count 354 K/mm3 (150-450); Red Blood Count 4.67 M/mm3 (4.1-5.4); Red Cell Distribution Width 12.1 % (11.5-14.0); White Blood Count 9.7 K/mm3 (4.0-10.5)
[2020-08-05 20:28] LABS: ALBUMIN 4.1 g/dL (3.5-5.0); ALKALINE PHOSPHATASE 83 U/L (38-126); ANION GAP 16.4 MEQ/L (5-15); BLOOD UREA NITROGEN 11 mg/dL (7-17); CHLORIDE 102 mmol/L (98-107); Calcium 9.6 mg/dL (8.4-10.2); Carbon Dioxide 22 mmol/L (22-30); EST GLOMERULAR FILTRATION RATE > 60.0 ML/MIN; Glucose 170 mg/dL (74-106); MAGNESIUM 1.6 mg/dL (1.6-2.3); Potassium 3.6 mmol/L (3.5-5.1); SGOT/AST 31 U/L (14-36); SODIUM 137 mmol/L (137-145); Total Protein 7.1 g/dL (6.3-8.2)
[2020-08-05 20:34] LABS: SGPT/ALT 22 U/L (0-35)
[2020-08-05 20:38] LABS: VBG BASE EXCESS -1.4 (-2.0-2.0); VBG CARBOXYHEMOGLOBIN 4.8 % T HGB (0.0-6.9); VBG HCO3- 22.8 meq/L (22-28); VBG HEMOGLOBIN 14.8; VBG O2 SATURATION 77.2 (95-100); VBG POTASSIUM 3.7 (3.5-5.1); VBG pH 7.41 (7.32-7.42)
[2020-08-05] MEDS ORDERED: TORAdol 30 mg Injection IV ONE (22:45)
[2020-08-05] MEDS ORDERED: TORAdol 30 mg Injection ONE (22:48)
[2020-08-05 23:38] VITALS: O2SAT 98
[2020-08-06 00:16] VITALS: BP 150/90; PULSE 100
== END 2020-08-05 23:55 | disposition home or self-care (01) ==
LOC: ED 19:31
DX: E10.65 Type 1 diabetes mellitus with hyperglycemia (principal); Z79.4 Long term (current) use of insulin; E87.2 Acidosis
CPT/HCPCS: 36000; 36415; 80053; 81001; 82805; 82947; 83605; 83735; 84703; 85025; 96360; 96361; 96374; 96375; 99284; J1885; J2405

== ENCOUNTER 2020-08-07 11:33 | Observation (INO) | payer OTHER ==
[2020-08-07] MEDS ORDERED: Sodium Chloride 0.9% 1000 ML 1,000 ML IV STA (12:43)
--- NOTE | 2020-08-07 12:47 | ERPHSYRPT ---
- History of Present Illness Time Seen by Provider: 08/07/20 12:30 Source: patient Exam Limitations: no limitations Patient Subjective Stated Complaint: pt here for weakness, and vomiting for 4 days now, she was seen in er on thursday for same thing, she states her BS have b een high today Triage Nursing Assessment: pt alert, resp easy, skin w.d.p, face mask in place, abd soft Physician History: Patient is a 35-year-old female with a history of type 1 diabetes presents to our ED with complaints of nausea vomiting x4 days. Patient states she feels extremely weak. Patient was in our ED on Thursday for the same. Patient is here as her symptoms are progressing. Patient complains of abdominal cramping. Patient states that she feels her bowels are very active. No trauma. No fever. No diarrhea. No obvious change in urine output. Symptoms are progressive. Symptoms are moderate in intensity. No specific worsening or improving factors. Patient denies chest pain. Shortness of breath. No numbness tingling or weakness. She voices no other complaints concerns at this time. Of note patient is an active smoker. She has no intentions of quitting at this time. Timing/Duration: day(s) (4 days) Severity: moderate Modifying Factors: Improves With: nothing Associated Symptoms: nausea, vomiting, abdominal pain, loss of appetite, weakness, No cough, No chest pain, No fever, No syncope Allergies/Adverse Reactions: No Known Drug Allergies Allergy (Verified 08/07/20 12:25) Home Medications: Medroxyprogesterone Acet [Depo-Provera] 150 mg IM Q90D 09/10/19 [History] Insulin Aspart (Niacinamide) [Fiasp 100 Unit/ml Flextouch] 14 units SQ AC 07/03/20 [History] Insulin Glargine,Hum.rec.anlog [Toujeo Solostar] 34 units SQ HS 07/04/20 [History] Milnacipran HCl [Savella] 100 mg PO BID 07/04/20 [History] Hx Tetanus, Diphtheria Vaccination/Date Given: Yes Hx Influenza Vaccination/Date Given: No Hx Pneumococcal Vaccination/Date Given: No Immunizations Up to Date: No Travel Risk - International Travel Have you traveled outside of the country in past 3 weeks: No - Coronavirus Screening Are you exhibiting any of the following symptoms?: No Close contact with a COVID-19 positive Pt in past 14-21 Days: No - Vaccine Status Have you recieved a Covid-19 vaccination: No - Review of Systems Constitutional: No Symptoms, No Fever, No Chills Eyes: No Symptoms Ears, Nose, & Throat: No Symptoms Respiratory: No Symptoms, No Cough, No Dyspnea Cardiac: No Symptoms, No Chest Pain, No Edema, No Syncope Abdominal/Gastrointestinal: No Symptoms, No Abdominal Pain, No Nausea, No Vomiting, No Diarrhea Genitourinary Symptoms: No Symptoms, No Dysuria Musculoskeletal: No Symptoms, No Back Pain, No Neck Pain Skin: No Symptoms, No Rash Neurological: No Symptoms, No Dizziness, No Focal Weakness, No Sensory Changes Psychological: No Symptoms Endocrine: No Symptoms Hematologic/Lymphatic: No Symptoms Immunological/Allergic: No Symptoms All Other Systems: Reviewed and Negative - Past Medical History Pertinent Past Medical History: Yes Neurological History: Peripheral Neuropathy ENT History: No Pertinent History Cardiac History: No Pertinent History Respiratory History: No Pertinent History Endocrine Medical History: Diabetes Type I Musculoskeletal History: Arthritis, Fibromyalgia GI Medical History: Pancreatitis History: No Pertinent History Psycho-Social History: Anxiety, Depression Female Reproductive Disorders: No Pertinent History Other Medical History: Was taken off of diabetic pump and put on sub q insulin coverage- sees [facility] sales office manager (Abigail Krishnan). - Past Surgical History Past Surgical History: Yes Neuro Surgical History: No Pertinent History Cardiac: No Pertinent History Respiratory: No Pertinent History Gastrointestinal: No Pertinent History Genitourinary: No Pertinent History Musculoskeletal: No Pertinent History Female Surgical History: Dilation & Curettage, Section Other Surgical History: cs x2 - Social History Smoking Status: Current every day smoker How long have you smoked: 20 years Exposure to second hand smoke: Yes Alcohol Use: None Drug Use: none Patient Lives Alone: No Significant Family History: heart disease, diabetes - Female History Hx Last Menstrual Period: unsure Hx Now: No - Nursing Vital Signs Nursing Vital Signs: Initial Vital Signs Temperature 97.7 F 08/07/20 12:13 Pulse Rate 117 H 08/07/20 12:13 Respiratory Rate 18 08/07/20 12:13 Blood Pressure 151/84 08/07/20 12:13 O2 Sat by Pulse Oximetry 100 08/07/20 12:13 Pain Scale Pain Intensity 6 - Physical Exam General Appearance: no apparent distress, alert Eye Exam: PERRL/EOMI, eyes nml inspection Ears, Nose, Throat Exam: normal ENT inspection, TMs normal, pharynx normal, moist mucous membranes Neck Exam: normal inspection, non-tender, supple, full range of motion Respiratory Exam: normal breath sounds, lungs clear, No respiratory distress Cardiovascular Exam: regular rate/rhythm, normal heart sounds, normal peripheral pulses Gastrointestinal/Abdomen Exam: soft, normal bowel sounds, No tenderness, No mass Back Exam: normal inspection, normal range of motion, No CVA tenderness, No vertebral tenderness Extremity Exam: normal inspection, normal range of motion, pelvis stable Neurologic Exam: alert, oriented x 3, cooperative, normal mood/affect, nml cerebellar function, nml station & gait, sensation nml, No motor deficits Skin Exam: normal color, warm, dry, No rash Lymphatic Exam: No adenopathy SpO2 Interpretation: normal SpO2: 100 O2 Delivery: Room Air - Course Nursing assessment & vital signs reviewed: Yes EKG Interpreted by Me: RATE ([id number]), Sinus Tach, NORMAL AXIS, NORMAL INTERVALS - Radiology Ultrasound Exam Gallbladder Ultrasound: tele radiology report (CT abdomen pelvis with contrast reveals n oncontrast stomach and bowel loops none obstructed with normal appendix. Gallbladder normally distended with new intraluminal dense sludge/gravel layering. Left lobe of the liver demonstrates 1 cm hemangioma. Right kidney demonstrates 2 stable small cortic) Ordered Tests: Active Orders 24 hr Category Date Time Status Bedrest ROUTINE Activity 08/07/20 16:34 Active Uat Tester STAT Care 08/07/20 12:45 Completed Code Status Order ROUTINE Care 08/07/20 16:34 Active EKG-ER Only STAT Care 08/07/20 12:43 Completed IV Care Q6H Care 08/07/20 16:34 Active IV Insertion STAT Care 08/07/20 12:43 Completed Neuro Checks Q4H Care 08/07/20 16:34 Active POCT Glucose Check Q1H Care 08/07/20 14:[address] in Observation ROUTINE Care 08/07/20 16:34 Active Pulse Oximetry (ED) STAT Care 08/07/20 12:43 Completed Telemetry q6h Care 08/07/20 16:34 Active Consistent Carbohydrate Diet 1800 Calorie Diet 08/07/20 Dinner Active ABDOMEN AND PELVIS W CONTRAST [CT] Stat Exams 08/07/20 14:35 Completed CBC W DIFF AM.LAB Lab 08/08/20 04:00 Ordered CBC W DIFF Stat Lab 08/07/20 13:33 Completed CMP AM.LAB Lab 08/08/20 04:00 Ordered CMP Stat Lab 08/07/20 13:33 Completed ETHYL ALCOHOL Stat Lab 08/07/20 13:33 Completed MAGNESIUM Stat Lab 08/07/20 13:33 Completed POCT GLUCOSE Stat Lab 08/07/20 12:44 Completed POCT GLUCOSE Stat Lab 08/07/20 14:45 Completed POCT GLUCOSE Stat Lab 08/07/20 15:12 Completed POCT GLUCOSE Stat Lab 08/07/20 16:18 Completed UA W/RFX UR CULTURE Stat Lab 08/07/20 12:44 Completed Urine Triage Profile Stat Lab 08/07/20 12:44 Completed Pulse Oximetry CONTINUOUS RT 08/07/20 16:34 Active Transfer Order Routine Transfer 08/07/20 Completed Medication Summary Generic Name Dose Route Start Last Admin Trade Name Freq PRN Reason Stop Dose Admin Hydralazine HCl 10 mg 08/07/20 20:30 Apresoline 20 Mg/Ml Inj IV 09/06/20 18:25 Q6H PRN PRN HYPERTENSION Insulin Human Regular 100 unit 100 mls @ 6.033 mls/hr 08/07/20 15:24 08/07/20 21:10 / Sodium Chloride IV 09/06/20 15:23 0 unit/kg/hr .[id number] PRN 0 mls/hr DKA/HYPERGLYCEMIA Titration Protocol 0.1 UNIT/KG/HR Sodium Chloride 1,000 mls @ 150 mls/hr 08/07/20 17:15 08/07/20 17:16 Sodium Chloride 0.9% 1000 Ml IV 08/07/20 23:54 150 mls/hr .Q6H40M ELOY Administration Potassium Chloride 100 mls @ 50 mls/hr 08/07/20 17:15 Potassium Chloride 20 Meq In Water 100ml IV 09/06/20 17:14 PRN PRN Sodium Chloride 1,000 mls @ 100 mls/hr 08/07/20 17:45 08/07/20 18:27 Sodium Chloride 0.9% 1000 Ml IV 09/06/20 17:44 Not Given .Q10H ELOY Insulin Glargine 34 unit 08/07/20 22:00 08/07/20 21:10 Lantus Insulin SQ 09/06/20 21:59 34 unit HS ELOY Administration Insulin Human Lispro 0 unit 08/07/20 20:52 08/07/20 22:11 Humalog SQ 09/06/20 20:51 5 unit UD PRN Administration HYPERGLYCEMIA Morphine Sulfate 2 mg 08/07/20 16:34 08/07/20 21:10 Morphine Sulfate 2 Mg Inj IV 08/12/20 16:33 2 mg Q4H PRN PRN Administration PAIN Ondansetron HCl 4 mg 08/07/20 16:34 08/07/20 23:05 Zofran 4 Mg/2 Ml Vial IV 09/06/20 16:33 4 mg Q6H PRN PRN Administration NAUSEA/VOMITING Potassium Bicarbonate 50 meq 08/07/20 17:27 K-Lyte 25 Meq PO 09/06/20 17:26 PRN PRN Discontinued Medications Generic Name Dose Route Start Last Admin Trade Name Freq PRN Reason Stop Dose Admin Hydralazine HCl 10 mg 08/07/20 18:26 08/07/20 18:29 Apresoline 20 Mg/Ml Inj IV 09/06/20 18:29 10 mg Q6H PRN Administration HYPERTENSION Sodium Chloride 1,000 mls @ 999 mls/hr 08/07/20 12:43 08/07/20 13:58 Sodium Chloride 0.9% 1000 Ml IV 08/07/20 13:43 Infused .Q1H1M STA Infusion Sodium Chloride Confirm 08/07/20 12:50 Sodium Chloride 0.9% 1000 Ml Administered 08/07/20 12:51 Dose 1,000 mls @ ud .ROUTE .STK-MED ONE Magnesium Sulfate/Dextrose 100 mls @ 100 mls/hr 08/07/20 14:30 08/07/20 15:15 Magnesium 1 Gm / 100 Ml D5w IV 08/07/20 16:29 100 mls/hr Q1H ELOY Administration Lactated Ringer's 1,000 mls @ 999 mls/hr 08/07/20 14:34 08/07/20 16:05 Lactated Ringers IV 08/07/20 15:34 Infused .Q1H1M ONE Infusion Lactated Ringer's Confirm 08/07/20 14:36 Lactated Ringers Administered 08/07/20 14:37 Dose 1,000 mls @ ud IV .STK-MED ONE Sodium Chloride Confirm 08/07/20 15:30 Sodium Chloride 0.9% 100 Ml Bag Administered 08/07/20 15:31 Dose 100 mls @ ud .ROUTE .STK-MED ONE Insulin Human Regular Confirm 08/07/20 15:30 Humulin R Administered 08/07/20 15:31 Dose 100 unit .ROUTE .STK-MED ONE Morphine Sulfate 2 mg 08/07/20 12:55 08/07/20 12:58 Morphine Sulfate 2 Mg Inj IV 08/07/20 12:56 2 mg STAT ONE Administration Morphine Sulfate Confirm 08/07/20 12:56 Morphine Sulfate 2 Mg Inj Administered 08/07/20 12:57 Dose 2 mg .ROUTE .STK-MED ONE Morphine Sulfate 4 mg 08/07/20 14:34 08/07/20 14:40 Morphine Sulfate 4 Mg Inj IV 08/07/20 14:35 4 mg STAT ONE Administration Morphine Sulfate Confirm 08/07/20 14:36 Morphine Sulfate 4 Mg Inj Administered 08/07/20 14:37 Dose 4 mg .ROUTE .STK-MED ONE Ondansetron HCl 4 mg 08/07/20 12:56 08/07/20 12:58 Zofran 4 Mg/2 Ml Vial IV 08/07/20 12:57 4 mg STAT ONE Administration Ondansetron HCl Confirm 08/07/20 12:56 Zofran 4 Mg/2 Ml Vial Administered 08/07/20 12:57 Dose 4 mg .ROUTE .STK-MED ONE Ondansetron HCl 4 mg 08/07/20 14:28 08/07/20 14:29 Zofran 4 Mg/2 Ml Vial IV 08/07/20 14:29 4 mg STAT ONE Administration Ondansetron HCl Confirm 08/07/20 14:28 Zofran 4 Mg/2 Ml Vial Administered 08/07/20 14:29 Dose 4 mg .ROUTE .STK-MED ONE Lab/Rad Data: Laboratory Result Diagrams 08/07/20 13:33 08/07/20 13:33 Laboratory Results 08/07/20 08/07/20 08/07/20 Range/Units 16:19 16:18 15:12 WBC (4.0-10.5) K/mm3 RBC (4.1-5.4) M/mm3 Hgb (12.0-16.0) gm/dl Hct (35-47) % MCV (78-100) fl MCH (26-32) pg MCHC (32-36) g/dl RDW (11.5-14.0) % Plt Count (150-450) K/mm3 MPV (7.5-11.0) fl Gran % (36.0-66.0) % Eos # (Auto) (0-0.5) Absolute Lymphs (auto) (1.0-4.6) Absolute Monos (auto) (0.0-1.3) Lymphocytes % (24.0-44.0) % Monocytes % (0.0-12.0) % Eosinophils % (0.00-5.0) % Basophils % (0.0-0.4) % Absolute Granulocytes (1.4-6.9) Basophils # (0-0.4) pO2/FiO2 Ratio Cancelled VBG pH Cancelled VBG pCO2 at Pat Temp Cancelled VBG pO2 at Pat Temp Cancelled VBG HCO3 Cancelled VBG O2 Sat (Alejandra) Cancelled VBG Base Excess Cancelled VBG Hemoglobin Cancelled VBG Carboxyhemoglobin Cancelled POC Potassium Cancelled Sodium (137-145) mmol/L Potassium (3.5-5.1) mmol/L Chloride (98-107) mmol/L Carbon Dioxide (22-30) mmol/L Anion Gap (5-15) MEQ/L BUN (7-17) mg/dL Creatinine (0.52-1.04) mg/dL Estimated GFR ML/MIN Glucose (74-106) mg/dL POC Glucometer 331 H 394 H (74 to 106) mg/dL Calcium (8.4-10.2) mg/dL Magnesium (1.6-2.3) mg/dL Total Bilirubin (0.2-1.3) mg/dL AST (14-36) U/L ALT (0-35) U/L Alkaline Phosphatase (38-126) U/L Serum Total Protein (6.3-8.2) g/dL Albumin (3.5-5.0) g/dL Urine Color (YELLOW) Urine Appearance (CLEAR) Urine pH (5-6) Ur Specific Shannon (1.005-1.025) Urine Protein (Negative) Urine Ketones (NEGATIVE) Urine Blood (0-5) Rodney/ul Urine Nitrite (NEGATIVE) Urine Bilirubin (NEGATIVE) Urine Urobilinogen (0-1) mg/dL Ur Leukocyte Esterase (NEGATIVE) Urine WBC (Auto) (0-5) /HPF Urine RBC (Auto) (0-2) /HPF U Hyaline Cast (Auto) (0-2) /LPF U Epithel Cells (Auto) (FEW) /HPF Urine Bacteria (Auto) (NEGATIVE) /HPF Urine Mucus (Auto) (NEGATIVE) /HPF Urine Culture Reflexed (NO) Urine Glucose (NEGATIVE) mg/dL Urine Opiates Level (NEGATIVE) Ur Methadone (NEGATIVE) Urine Barbiturates (NEGATIVE) Ur Phencyclidine (PCP) (NEGATIVE) Urine Amphetamine (NEGATIVE) U Benzodiazepine Level (NEGATIVE) Urine Cocaine (NEGATIVE) Urine Marijuana (THC) (NEGATIVE) Ethyl Alcohol (0-10) mg/dL SARS-CoV-2 (PCR) (NEGATIVE) 08/07/20 08/07/20 08/07/20 Range/Units 14:46 14:45 13:33 WBC (4.0-10.5) K/mm3 RBC (4.1-5.4) M/mm3 Hgb (12.0-16.0) gm/dl Hct (35-47) % MCV (78-100) fl MCH (26-32) pg MCHC (32-36) g/dl RDW (11.5-14.0) % Plt Count (150-450) K/mm3 MPV (7.5-11.0) fl Gran % (36.0-66.0) % Eos # (Auto) (0-0.5) Absolute Lymphs (auto) (1.0-4.6) Absolute Monos (auto) (0.0-1.3) Lymphocytes % (24.0-44.0) % Monocytes % (0.0-12.0) % Eosinophils % (0.00-5.0) % Basophils % (0.0-0.4) % Absolute Granulocytes (1.4-6.9) Basophils # (0-0.4) pO2/FiO2 Ratio VBG pH VBG pCO2 at Pat Temp VBG pO2 at Pat Temp VBG HCO3 VBG O2 Sat (Alejandra) VBG Base Excess VBG Hemoglobin VBG Carboxyhemoglobin POC Potassium Sodium 133 L (137-145) mmol/L Potassium 3.5 (3.5-5.1) mmol/L Chloride 104 (98-107) mmol/L Carbon Dioxide 16 L* (22-30) mmol/L Anion Gap 16.9 H (5-15) MEQ/L BUN 7 (7-17) mg/dL Creatinine 0.57 (0.52-1.04) mg/dL Estimated GFR > 60.0 ML/MIN Glucose 221 H (74-106) mg/dL POC Glucometer 364 H (74 to 106) mg/dL Calcium 8.8 (8.4-10.2) mg/dL Magnesium 1.5 L (1.6-2.3) mg/dL Total Bilirubin 0.60 (0.2-1.3) mg/dL AST 20 (14-36) U/L ALT 9 (0-35) U/L Alkaline Phosphatase 83 (38-126) U/L Serum Total Protein 6.2 L (6.3-8.2) g/dL Albumin 3.4 L (3.5-5.0) g/dL Urine Color (YELLOW) Urine Appearance (CLEAR) Urine pH (5-6) Ur Specific Shannon (1.005-1.025) Urine Protein (Negative) Urine Ketones (NEGATIVE) Urine Blood (0-5) Rodney/ul Urine Nitrite (NEGATIVE) Urine Bilirubin (NEGATIVE) Urine Urobilinogen (0-1) mg/dL Ur Leukocyte Esterase (NEGATIVE) Urine WBC (Auto) (0-5) /HPF Urine RBC (Auto) (0-2) /HPF U Hyaline Cast (Auto) (0-2) /LPF U Epithel Cells (Auto) (FEW) /HPF Urine Bacteria (Auto) (NEGATIVE) /HPF Urine Mucus (Auto) (NEGATIVE) /HPF Urine Culture Reflexed (NO) Urine Glucose (NEGATIVE) mg/dL Urine Opiates Level (NEGATIVE) Ur Methadone (NEGATIVE) Urine Barbiturates (NEGATIVE) Ur Phencyclidine (PCP) (NEGATIVE) Urine Amphetamine (NEGATIVE) U Benzodiazepine Level (NEGATIVE) Urine Cocaine (NEGATIVE) Urine Marijuana (THC) (NEGATIVE) Ethyl Alcohol < 10 (0-10) mg/dL SARS-CoV-2 (PCR) NEGATIVE (NEGATIVE) 08/07/20 08/07/20 08/07/20 Range/Units 13:33 12:44 12:44 WBC 11.9 H (4.0-10.5) K/mm3 RBC 4.25 (4.1-5.4) M/mm3 Hgb 13.0 (12.0-16.0) gm/dl Hct 38.8 (35-47) % MCV 91.3 (78-100) fl MCH 30.6 (26-32) pg MCHC 33.5 (32-36) g/dl RDW 12.0 (11.5-14.0) % Plt Count 326 (150-450) K/mm3 MPV 9.7 (7.5-11.0) fl Gran % 72.6 H (36.0-66.0) % Eos # (Auto) 0.02 (0-0.5) Absolute Lymphs (auto) 2.56 (1.0-4.6) Absolute Monos (auto) 0.62 (0.0-1.3) Lymphocytes % 21.6 L (24.0-44.0) % Monocytes % 5.2 (0.0-12.0) % Eosinophils % 0.2 (0.00-5.0) % Basophils % 0.4 (0.0-0.4) % Absolute Granulocytes 8.60 H (1.4-6.9) Basophils # 0.05 (0-0.4) pO2/FiO2 Ratio VBG pH VBG pCO2 at Pat Temp VBG pO2 at Pat Temp VBG HCO3 VBG O2 Sat (Alejandra) VBG Base Excess VBG Hemoglobin VBG Carboxyhemoglobin POC Potassium Sodium (137-145) mmol/L Potassium (3.5-5.1) mmol/L Chloride (98-107) mmol/L Carbon Dioxide (22-30) mmol/L Anion Gap (5-15) MEQ/L BUN (7-17) mg/dL Creatinine (0.52-1.04) mg/dL Estimated GFR ML/MIN Glucose (74-106) mg/dL POC Glucometer (74 to 106) mg/dL Calcium (8.4-10.2) mg/dL Magnesium (1.6-2.3) mg/dL Total Bilirubin (0.2-1.3) mg/dL AST (14-36) U/L ALT (0-35) U/L Alkaline Phosphatase (38-126) U/L Serum Total Protein (6.3-8.2) g/dL Albumin (3.5-5.0) g/dL Urine Color YELLOW (YELLOW) Urine Appearance SLIGHTLY CLOUDY (CLEAR) Urine pH 6.0 (5-6) Ur Specific Shannon 1.024 (1.005-1.025) Urine Protein >=500 (Negative) Urine Ketones MODERATE (NEGATIVE) Urine Blood NEGATIVE (0-5) Rodney/ul Urine Nitrite NEGATIVE (NEGATIVE) Urine Bilirubin NEGATIVE (NEGATIVE) Urine Urobilinogen NEGATIVE (0-1) mg/dL Ur Leukocyte Esterase NEGATIVE (NEGATIVE) Urine WBC (Auto) 0-2 (0-5) /HPF Urine RBC (Auto) 0-2 (0-2) /HPF U Hyaline Cast (Auto) 3-5 (0-2) /LPF U Epithel Cells (Auto) RARE (FEW) /HPF Urine Bacteria (Auto) RARE (NEGATIVE) /HPF Urine Mucus (Auto) SLIGHT (NEGATIVE) /HPF Urine Culture Reflexed NO (NO) Urine Glucose >=500 (NEGATIVE) mg/dL Urine Opiates Level NEGATIVE (NEGATIVE) Ur Methadone NEGATIVE (NEGATIVE) Urine Barbiturates NEGATIVE (NEGATIVE) Ur Phencyclidine (PCP) NEGATIVE (NEGATIVE) Urine Amphetamine NEGATIVE (NEGATIVE) U Benzodiazepine Level NEGATIVE (NEGATIVE) Urine Cocaine NEGATIVE (NEGATIVE) Urine Marijuana (THC) NEGATIVE (NEGATIVE) Ethyl Alcohol (0-10) mg/dL SARS-CoV-2 (PCR) (NEGATIVE) 08/07/20 Range/Units 12:44 WBC (4.0-10.5) K/mm3 RBC (4.1-5.4) M/mm3 Hgb (12.0-16.0) gm/dl Hct (35-47) % MCV (78-100) fl MCH (26-32) pg MCHC (32-36) g/dl RDW (11.5-14.0) % Plt Count (150-450) K/mm3 MPV (7.5-11.0) fl Gran % (36.0-66.0) % Eos # (Auto) (0-0.5) Absolute Lymphs (auto) (1.0-4.6) Absolute Monos (auto) (0.0-1.3) Lymphocytes % (24.0-44.0) % Monocytes % (0.0-12.0) % Eosinophils % (0.00-5.0) % Basophils % (0.0-0.4) % Absolute Granulocytes (1.4-6.9) Basophils # (0-0.4) pO2/FiO2 Ratio VBG pH VBG pCO2 at Pat Temp VBG pO2 at Pat Temp VBG HCO3 VBG O2 Sat (Alejandra) VBG Base Excess VBG Hemoglobin VBG Carboxyhemoglobin POC Potassium Sodium (137-145) mmol/L Potassium (3.5-5.1) mmol/L Chloride (98-107) mmol/L Carbon Dioxide (22-30) mmol/L Anion Gap (5-15) MEQ/L BUN (7-17) mg/dL Creatinine (0.52-1.04) mg/dL Estimated GFR ML/MIN Glucose (74-106) mg/dL POC Glucometer 187 H (74 to 106) mg/dL Calcium (8.4-10.2) mg/dL Magnesium (1.6-2.3) mg/dL Total Bilirubin (0.2-1.3) mg/dL AST (14-36) U/L ALT (0-35) U/L Alkaline Phosphatase (38-126) U/L Serum Total Protein (6.3-8.2) g/dL Albumin (3.5-5.0) g/dL Urine Color (YELLOW) Urine Appearance (CLEAR) Urine pH (5-6) Ur Specific Shannon (1.005-1.025) Urine Protein (Negative) Urine Ketones (NEGATIVE) Urine Blood (0-5) Rodney/ul Urine Nitrite (NEGATIVE) Urine Bilirubin (NEGATIVE) Urine Urobilinogen (0-1) mg/dL Ur Leukocyte Esterase (NEGATIVE) Urine WBC (Auto) (0-5) /HPF Urine RBC (Auto) (0-2) /HPF U Hyaline Cast (Auto) (0-2) /LPF U Epithel Cells (Auto) (FEW) /HPF Urine Bacteria (Auto) (NEGATIVE) /HPF Urine Mucus (Auto) (NEGATIVE) /HPF Urine Culture Reflexed (NO) Urine Glucose (NEGATIVE) mg/dL Urine Opiates Level (NEGATIVE) Ur Methadone (NEGATIVE) Urine Barbiturates (NEGATIVE) Ur Phencyclidine (PCP) (NEGATIVE) Urine Amphetamine (NEGATIVE) U Benzodiazepine Level (NEGATIVE) Urine Cocaine (NEGATIVE) Urine Marijuana (THC) (NEGATIVE) Ethyl Alcohol (0-10) mg/dL SARS-CoV-2 (PCR) (NEGATIVE) - Progress Progress: improved Progress Note: Patient reassessed. She feels better. Patient's glucose initially in the 187 range. Glucose gradually increased. Insulin drip initiated. Patient admitted to ICU. 08/07/20 23:[address] Dutta, Other (Case discussed with Dr. Wilcox who accepts admission to observation.) Will see patient in: hospital (observation) Counseled pt/family regarding: lab results, diagnosis, need for follow-up, rad results, smoking cessation - Departure Departure Disposition: Observation Clinical Impression: Nausea and vomiting, Generalized weakness, Gallbladder dense sludge/gravel, Stable small hepatic hemangioma, Renal cyst, right, DKA (diabetic ketoacidosis) Condition: Stable Critical Care Time: No
[2020-08-07] MEDS ORDERED: Sodium Chloride 0.9% 1000 ML 1,000 ML ONE (12:50)
[2020-08-07] MEDS ORDERED: MORPHINE SULFATE 2 MG INJ IV ONE (12:55)
[2020-08-07] MEDS ORDERED: Zofran 4 MG/2 ML VIAL IV ONE ×2 (12:56→14:28)
[2020-08-07] MEDS ORDERED: Zofran 4 MG/2 ML VIAL ONE ×2 (12:56→14:28)
[2020-08-07] MEDS ORDERED: MORPHINE SULFATE 2 MG INJ ONE (12:56)
[2020-08-07 12:59] LABS: Appearance SLIGHTLY CLOUDY (CLEAR); Bacteria RARE /HPF (NEGATIVE); Bilirubin NEGATIVE (NEGATIVE); Blood NEGATIVE Ery/ul (0-5); Epithelial Cells RARE /HPF (FEW); Glucose >=500 mg/dL (NEGATIVE); Ketones MODERATE (NEGATIVE); Leukocyte Esterase NEGATIVE (NEGATIVE); Mucus SLIGHT /HPF (NEGATIVE); Nitrite NEGATIVE (NEGATIVE); Protein,Urine Dip >=500 (Negative); RBC 0-2 /HPF (0-2); Specific Gravity 1.024 (1.005-1.025); Urobilinogen NEGATIVE mg/dL (0-1); WBC 0-2 /HPF (0-5)
[2020-08-07 13:18] LABS: Amphetamine,Urine NEGATIVE (NEGATIVE); Barbiturate,Urine NEGATIVE (NEGATIVE); Benzodiazepine,Urine NEGATIVE (NEGATIVE); Cocaine,Urine NEGATIVE (NEGATIVE); Methadone,Urine NEGATIVE (NEGATIVE); Opiate,Urine NEGATIVE (NEGATIVE); PCP,Urine NEGATIVE (NEGATIVE); THC,Urine NEGATIVE (NEGATIVE)
[2020-08-07 13:35] LABS: BASOPHIL % 0.4 % (0.0-0.4); Basophil (Absolute #) 0.05 (0-0.4); Eosinophil % 0.2 % (0.00-5.0); Eosinophil (Absolute #) 0.02 (0-0.5); Hematocrit 38.8 % (35-47); Lymphocyte (Absolute #) 2.56 (1.0-4.6); Lymphocytes % 21.6 % (24.0-44.0); Mean Cell Volume 91.3 fl (78-100); Mean Corpuscular Hemoglobin 30.6 pg (26-32); Mean Corpuscular Hgb Concent. 33.5 g/dl (32-36); Mean Platelet Volume 9.7 fl (7.5-11.0); Monocyte (Absolute #) 0.62 (0.0-1.3); Monocytes % 5.2 % (0.0-12.0); Neutrophil % 72.6 % (36.0-66.0); Platelet Count 326 K/mm3 (150-450); Red Blood Count 4.25 M/mm3 (4.1-5.4); White Blood Count 11.9 K/mm3 (4.0-10.5)
[2020-08-07 14:01] LABS: ALBUMIN 3.4 g/dL (3.5-5.0); ALKALINE PHOSPHATASE 83 U/L (38-126); ANION GAP 16.9 MEQ/L (5-15); BLOOD UREA NITROGEN 7 mg/dL (7-17); CHLORIDE 104 mmol/L (98-107); Calcium 8.8 mg/dL (8.4-10.2); Creatinine 1 0.57 mg/dL (0.52-1.04); EST GLOMERULAR FILTRATION RATE > 60.0 ML/MIN; ETHYL ALCOHOL < 10 mg/dL (0-10); Glucose 221 mg/dL (74-106); MAGNESIUM 1.5 mg/dL (1.6-2.3); Potassium 3.5 mmol/L (3.5-5.1); SGOT/AST 20 U/L (14-36); SGPT/ALT 9 U/L (0-35); SODIUM 133 mmol/L (137-145); Total Protein 6.2 g/dL (6.3-8.2)
[2020-08-07 14:05] LABS: Carbon Dioxide 16 mmol/L (22-30)
[2020-08-07] MEDS ORDERED: Lactated Ringers 1,000 ML IV ONE ×2 (14:34→14:36)
[2020-08-07] MEDS ORDERED: MORPHINE SULFATE 4 MG INJ IV ONE (14:34)
[2020-08-07] MEDS ORDERED: MORPHINE SULFATE 4 MG INJ ONE (14:36)
[2020-08-07] MEDS: Magnesium 1 Gm / 100 Ml D5W*** 100 ML IV SCH ×2 (14:40→15:15)
[2020-08-07] MEDS ORDERED: HUMULIN R 100 UNIT in Sodium Chloride 0.9% 100 ML BAG 100 ML IV PRN (15:24)
--- NOTE | 2020-08-07 15:26 | XRAY ---
Indication: Abdomen pain 4 days. Nausea and choking. Multiple contiguous axial images obtained through the abdomen and pelvis using 80 cc Isovue 370 contrast. Comparison: August 01, 2020. Lung bases again demonstrates minimal fibrosis/scarring without infiltrate or effusion. Heart is not enlarged. Noncontrasted stomach and bowel loops nonobstructed with normal appendix. Gallbladder normally distended with new intraluminal dense sludge/gravel layering. Left lobe of the liver again demonstrates previous CT proven 1 cm hemangioma. Right kidney demonstrates 2 stable small cortical cysts. Remaining pancreas, spleen, adrenal glands, kidneys, ureters, bladder, and uterus unremarkable. Stable minimal distal aortic calcifications. No AAA or pathologic retroperitoneal lymphadenopathy. Impression: 1. New gallbladder dense sludge/gravel. 2. Stable small hepatic hemangioma and right renal cysts.
[2020-08-07] MEDS ORDERED: Sodium Chloride 0.9% 100 ML BAG 100 ML ONE (15:30)
[2020-08-07] MEDS ORDERED: HUMULIN R ONE (15:30)
[2020-08-07 16:46] LABS: A-aADO2 19; ABG HEMOGLOBIN 13.5; ABG POTASSIUM 4.5 (3.5-5.1); ABG SITE LEFT BRACHIAL; ARTERIAL BLD GAS O2 SATURATION 98.7 % (95-100); ARTERIAL BLOOD GAS BASE EXCESS -5.5 (-2.0-2.0); ARTERIAL BLOOD GAS FIO2 21 %; ARTERIAL BLOOD GAS PCO2 27 mmHg (35-45); ARTERIAL BLOOD GAS PO2 97 mmHg (75-100); ARTERIAL BLOOD GAS pH 7.42 (7.35-7.45); CARBOXYHEMOGLOBIN 2.7 % THgb (0.0-6.9); HCO3- 17.5 (22-28); HGB O2 SAT 95.6 g/dF (94-100); Methhemoglobin 0.3 % (1.4-1.5)
[2020-08-07] MEDS: Zofran 4 MG/2 ML VIAL IV PRN ×2 (16:57→23:05)
[2020-08-07] MEDS: MORPHINE SULFATE 2 MG INJ IV PRN ×2 (16:57→21:10)
[2020-08-07] MEDS ORDERED: POTASSIUM CHLORIDE 20 mEq IN WATER 100ML 100 ML IV PRN (17:15)
[2020-08-07] MEDS ORDERED: Sodium Chloride 0.9% 1000 ML 1,000 ML IV SCH ×2 (17:15→17:45)
[2020-08-07] MEDS ORDERED: K-LYTE 25 MEQ PO PRN (17:27)
[2020-08-07 18:26] LABS: ANION GAP 14.5 MEQ/L (5-15); BLOOD UREA NITROGEN 7 mg/dL (7-17); CHLORIDE 102 mmol/L (98-107); Calcium 8.8 mg/dL (8.4-10.2); Carbon Dioxide 20 mmol/L (22-30); Creatinine 1 0.62 mg/dL (0.52-1.04); EST GLOMERULAR FILTRATION RATE > 60.0 ML/MIN; Glucose 269 mg/dL (74-106); Potassium 3.5 mmol/L (3.5-5.1); SODIUM 133 mmol/L (137-145)
[2020-08-07] MEDS ORDERED: APRESOLINE 20 MG/ML INJ IV PRN (18:26)
[2020-08-07] MEDS ORDERED: Lantus Insulin SQ SCH (22:00)
[2020-08-07] MEDS: HUMALOG SQ PRN (22:11)
[2020-08-07] MEDS: Sodium Chloride 0.9% W/ 20 mEq KCl/LITER 1,000 ML IV SCH (23:47)
[2020-08-08 04:52] LABS: Absolute Neutrophil Ct (ANC) 6.06 (1.4-6.9); BASOPHIL % 0.5 % (0.0-0.4); Basophil (Absolute #) 0.06 (0-0.4); Eosinophil % 1.3 % (0.00-5.0); Eosinophil (Absolute #) 0.15 (0-0.5); Hematocrit 37.5 % (35-47); Hemoglobin 12.6 gm/dl (12.0-16.0); Lymphocyte (Absolute #) 4.28 (1.0-4.6); Lymphocytes % 37.9 % (24.0-44.0); Mean Cell Volume 91.2 fl (78-100); Mean Corpuscular Hemoglobin 30.7 pg (26-32); Mean Corpuscular Hgb Concent. 33.6 g/dl (32-36); Mean Platelet Volume 9.8 fl (7.5-11.0); Monocyte (Absolute #) 0.73 (0.0-1.3); Monocytes % 6.5 % (0.0-12.0); Neutrophil % 53.8 % (36.0-66.0); Platelet Count 336 K/mm3 (150-450); Red Blood Count 4.11 M/mm3 (4.1-5.4); White Blood Count 11.3 K/mm3 (4.0-10.5)
[2020-08-08 05:07] LABS: ALKALINE PHOSPHATASE 74 U/L (38-126); ANION GAP 11.8 MEQ/L (5-15); BLOOD UREA NITROGEN 7 mg/dL (7-17); CHLORIDE 103 mmol/L (98-107); Calcium 8.5 mg/dL (8.4-10.2); Carbon Dioxide 21 mmol/L (22-30); EST GLOMERULAR FILTRATION RATE > 60.0 ML/MIN; Glucose 291 mg/dL (74-106); Potassium 3.5 mmol/L (3.5-5.1); SGOT/AST 19 U/L (14-36); SGPT/ALT 9 U/L (0-35); SODIUM 132 mmol/L (137-145); Total Protein 5.8 g/dL (6.3-8.2)
[2020-08-08] MEDS: APRESOLINE 20 MG/ML INJ IV PRN ×2 (06:36→07:17)
[2020-08-08] MEDS: MORPHINE SULFATE 2 MG INJ IV PRN ×9 (06:36→23:05)
[2020-08-08] MEDS: Zofran 4 MG/2 ML VIAL IV PRN ×3 (06:36→20:52)
[2020-08-08] MEDS: HUMALOG SQ PRN ×3 (07:18→22:17)
--- NOTE | 2020-08-08 07:52 | HP ---
CHIEF COMPLAINT: Vomiting and abdominal pain. HISTORY OF PRESENT ILLNESS: The patient is a 35 year-old white female with history of type I diabetes mellitus who has been having problems for the past week. She has been to the emergency room for the third time now and we decided she needed to be admitted due to her sugars being abnormally high and dehydration issues. PAST MEDICAL/SURGICAL HISTORY: Significant for diabetes mellitus type I for several years. Her control has not been good with A1C's ranging in the 9 to 10 range. She previously had D&C and section. Fibromyalgia. HOME MEDICATIONS: Include insulin Fiasp 100 units Flextouch 14 units subcu a.c., insulin glargine 34 units at night, Depo-Provera 150 mg every 90 days, Savella 100 mg b.i.d. for fibromyalgia. ALLERGIES: NKDA. PHYSICAL EXAMINATION: Her vital signs on admission to the emergency room showed a temperature 97.7F, pulse 117, respiratory rate 18, blood pressure 159/84. O2 saturation 100%. HEENT: Normocephalic, atraumatic. Pupils equal round reactive to light. Extraocular movements intact. Oropharynx is slightly dry. NECK: Supple without lymphadenopathy, thyromegaly or JVD. CHEST: Clear to auscultation. HEART: Regular rate and rhythm but somewhat tachycardic. No murmurs, rubs or gallops are heard. ABDOMEN: Soft, somewhat tender in the epigastric region but no palpable masses. No guarding or rebound. EXTREMITIES: Without cyanosis, clubbing or edema. NEUROLOGIC: The patient is alert and oriented x3. No focal deficits. LAB DATA AND TESTS: Her laboratory studies show urine protein to be negative. Her white count was slightly elevated at 11,900, hemoglobin 13.0, PLT 326,000. Her sugar initially was 221, BUN 7, creatinine 0.57. Sodium slightly low at 133. Her CO2 was 16. Her liver enzymes were normal. ETOH was negative. COVID test was negative. Her blood gas showed a venous blood gas of 7.42. CT scan of the abdomen showed new gallbladder sludge and/or gravel otherwise stable small hepatic hemangioma and right renal cysts. ASSESSMENT: A patient with nausea, abdominal pain and diabetes mellitus type I. The patient has been admitted for IV fluid hydration and further evaluation of her gallbladder with gallbladder ultrasound. She also tends to be somewhat tachycardic and blood pressure has been elevated due to her pain. We will check an echocardiogram as well at this time and start her on some Coreg 3.125 mg b.i.d. for both her heart rate and blood pressure. She will also need coverage with hydralazine for systolic blood pressure over 180. Surgical consultation with possibility of having cholecystectomy.
[2020-08-08] MEDS: Sodium Chloride 0.9% W/ 20 mEq KCl/LITER 1,000 ML IV SCH ×2 (08:20→16:28)
[2020-08-08] MEDS: Coreg 3.125 MG PO SCH ×2 (08:20→21:30)
[2020-08-08] MEDS ORDERED: MEDICATION INTERVENTION MC SCH (09:15)
[2020-08-08] MEDS ORDERED: MILNACIPRAN HCL 100 MG PO SCH (10:00)
--- NOTE | 2020-08-08 10:48 | XRAY ---
Indication: Gallbladder sludge. Two-dimensional gallbladder sonogram performed. Comparison: March 08, 2019. Pancreas not well seen due to overlying bowel gas. Gallbladder normally distended again with minimal sludge in the dependent portion. No gallstones, wall thickening, or pericholecystic fluid. Common bile duct measures 3.1 mm. No intrahepatic biliary distention. Remaining visualized liver homogeneous in echogenicity without ascites. Right kidney measures 11.9 cm in length with new 9 mm upper pole cortical cyst. No suspicious solid renal mass or hydronephrosis. Impression: 1. Stable minimal gallbladder sludge. Negative for cholelithiasis/cholecystitis. 2. New subcentimeter right renal cyst.
[2020-08-08] MEDS ORDERED: MEFOXIN 2 GM PREMIX** 2 GM/50 ML ML IV SCH (11:00)
[2020-08-08] MEDS ORDERED: [UNRECOGNIZED DRUG - OTHER] SQ SCH (11:30)
[2020-08-08] MEDS ORDERED: INSULIN ASPART 14 UNIT SQ SCH (11:30)
[2020-08-08] MEDS: HUMALOG SQ SCH ×2 (11:33→17:26)
[2020-08-08] MEDS: Sodium Chloride 0.9% 1000 ML 1,000 ML IV SCH ×2 (12:37→17:48)
[2020-08-08] MEDS ORDERED: Lantus Insulin SQ SCH (22:00)
[2020-08-09] MEDS: MORPHINE SULFATE 2 MG INJ IV PRN ×7 (01:09→12:35)
[2020-08-09] MEDS: Sodium Chloride 0.9% W/ 20 mEq KCl/LITER 1,000 ML IV SCH (01:13)
[2020-08-09] MEDS: PROTONIX 40 MG IV IV SCH ×2 (01:42→09:46)
[2020-08-09] MEDS: Zofran 4 MG/2 ML VIAL IV PRN (03:21)
[2020-08-09] MEDS: HUMALOG SQ PRN ×2 (03:45→12:35)
[2020-08-09 05:20] LABS: Hemoglobin 11.4 gm/dl (12.0-16.0); Mean Cell Volume 93.6 fl (78-100); Mean Corpuscular Hemoglobin 30.5 pg (26-32); Mean Corpuscular Hgb Concent. 32.6 g/dl (32-36); Platelet Count 262 K/mm3 (150-450); Red Blood Count 3.74 M/mm3 (4.1-5.4); Red Cell Distribution Width 11.9 % (11.5-14.0); White Blood Count 8.8 K/mm3 (4.0-10.5)
[2020-08-09 05:41] LABS: ALBUMIN 2.9 g/dL (3.5-5.0); ALKALINE PHOSPHATASE 63 U/L (38-126); ANION GAP 11.7 MEQ/L (5-15); BLOOD UREA NITROGEN 7 mg/dL (7-17); CHLORIDE 104 mmol/L (98-107); Calcium 8.6 mg/dL (8.4-10.2); Carbon Dioxide 21 mmol/L (22-30); Creatinine 1 0.63 mg/dL (0.52-1.04); EST GLOMERULAR FILTRATION RATE > 60.0 ML/MIN; Glucose 156 mg/dL (74-106); Potassium 3.4 mmol/L (3.5-5.1); SGOT/AST 27 U/L (14-36); SGPT/ALT 12 U/L (0-35); SODIUM 133 mmol/L (137-145); Total Protein 5.4 g/dL (6.3-8.2)
[2020-08-09 07:33] VITALS: O2SAT 97
[2020-08-09] MEDS: HUMALOG SQ SCH ×2 (07:42→12:35)
--- NOTE | 2020-08-09 08:40 | CONS ---
CONSULT DATE: 08/08/2020 REASON FOR CONSULT: Abdominal pain, nausea. HISTORY OF PRESENT ILLNESS: The patient is a 35 year old female with a history of poorly controlled diabetes mellitus type I, A1C above 9, who states that over the last couple of weeks she has had increasing problems with some nausea, abdominal pain, elevated blood sugars with blood sugars above 600 at some point. She presented to the emergency department and she was admitted for diabetic ketoacidosis. She was treated and her sugars and labs are improving. However, she continues to complain of some abdominal pain, nausea and a CT scan was obtained which showed some sludge in gallbladder so surgical consultation was requested. On discussion with the patient, she does endorse some constant upper abdominal pain that has been going on for at least several days. It did not really seem to improve with her resolution of diabetic ketoacidosis. She had some mild nausea, no emesis, no change in her bowel function and no blood in her stools or melena. The patient denies any exacerbating or relieving factors. This is not post-prandial in nature. She has had no prior episodes previous to this last week. Denies heartburn symptoms. REVIEW OF SYSTEMS: Otherwise negative. PAST MEDICAL HISTORY: Diabetes mellitus type I uncontrolled. Fibromyalgia. PAST SURGICAL HISTORY: section. D&C. MEDICATIONS: Home medications reviewed: Insulin. Depo-Provera. Savella. ALLERGIES: NKDA. SOCIAL HISTORY: Daily smoker. Occasional alcohol. No illicits endorsed. PHYSICAL EXAMINATION: Normal vital signs. She is in no acute distress. HEENT: Sclera nonicteric. NECK: Symmetric. No mass. LUNGS: Nonlabored respirations. HEART: Regular rate and rhythm. ABDOMEN: Nondistended, soft, minimally tender to palpation in the upper abdomen. No rebound and guarding. No Loaiza. EXTREMITIES: No peripheral edema. NEUROLOGIC: GCS 15. Moving all extremities. LAB DATA AND TESTS: Laboratory studies 08/08/2020: White blood cell count 11.3, hemoglobin 12.6, PLT 336,000. Sodium 132, potassium 3.5, chloride 103, carbon dioxide 21. Anion gap 11.8, creatinine 0.6, glucose 291. AST 19, ALT 9, total bilirubin 0.4, alkaline phosphatase 74. Imaging: CT scan abdomen and pelvis 08/07/2020 gallbladder sludge or gravel, stable small hepatic hemangioma and right renal cyst. Ultrasound 08/08/2020 showed gallbladder sludge, common bile duct 3.1 mm. No gallstones, wall thickening or pericholecystic fluid. ASSESSMENT AND PLAN: The patient is a 35 year old female with nonspecific abdominal pain in the setting of diabetic ketoacidosis, this feature can go along with diabetic ketoacidosis. However subjectively her symptoms have not significantly improved. She does have sludge on imaging of the gallbladder. Her symptoms do not necessarily line up with gallbladder symptoms. Regardless, the patient was offered cholecystectomy and EGD. However the patient refused even though that was scheduled. The patient is now saying that she would like to have it done just at a later date this admission. It would be reasonable to proceed with a laparoscopic cholecystectomy and EGD. The patient is aware that this very well may not be the source of her symptoms. We will have to discuss with the operating room and my partners availability for the procedures. It is certainly not emergent and the patient's has already canceled once so it would be reasonable to do this in the outpatient setting also and empirically treat with proton pump inhibitor.
--- NOTE | 2020-08-09 09:29 | DS ---
DISCHARGE DIAGNOSES: 1) ABDOMINAL PAIN. 2) VOMITING. 3) SLUDGE IN THE GALLBLADDER. CONSULTANTS: Dr. Sharma. HOSPITAL COURSE: The patient is a 35 year-old white female who had episodes of vomiting, abdominal pain over the past week. She has been in the emergency room three times. The patient is a brittle type I diabetic. She was checked for what the emergency room doctor thought was originally possibly mild diabetic ketoacidosis and this is not the case as the patient's pH was 7.42 and she was admitted. The patient was initially started on IV insulin but this was discontinued and she was given her usual insulin along with additional for coverage. Her blood sugars were falling and in 100's by the morning of 08/09/2020. The patient did have CT scan of the abdomen and pelvis which showed gallbladder sludge. Ultrasound likewise showed the sludge as well. With the patient's recurrent abdominal problems, we felt the patient would benefit from having laparoscopic cholecystectomy. This was offered to the patient on 08/08/2020 in the evening however the patient declined to have it done at this time. She wanted her mother to be present. By the next morning the patient was hungry and wanting to eat and we offered her again to have this removed on the afternoon of 08/09/2020 and the patient declined once again saying that she wanted to wait. She was therefore discharged home at this time with instructions to follow up with surgery and to follow up in our office in one week. She is to resume her home medications. It was also noted that the patient was also hypertensive during her stay and tachycardic. She was started on Coreg 3.125 mg b.i.d. which did improve the heart rate and blood pressure both. She was given Protonix 40 mg to take as well for potential gastritis issues. She is to return to the hospital if she has any further problems in the interim.
[2020-08-09] MEDS: Coreg 3.125 MG PO SCH (09:46)
[2020-08-09 11:38] VITALS: BP 173/84; PULSE 100
--- NOTE | 2020-08-09 14:01 | ECHO ---
Transthoracic echocardiographic examination and color Doppler was done on 08/08/2020. INDICATION: Hypertension, diabetes. IMPRESSION: 1) NO REGIONAL WALL MOTION ABNORMALITY. ESTIMATED GLOBAL LEFT VENTRICULAR EJECTION FRACTION OF AROUND 70%. 2) MODERATE CONCENTRIC LEFT VENTRICULAR HYPERTROPHY. The left ventricle is visualized and demonstrated adequate motion of all the segments. Estimated global left ventricular ejection fraction around 70%. There is moderate concentric left ventricular hypertrophy. There is no significant gradient across the left ventricular outflow tract. The mitral valve is seen and this opens adequately. No significant mitral regurgitation is seen. Left atrium is normal. The aortic valve opens adequately. There is no significant gradient across the left ventricular outflow tract. The right side chambers are normal.
[2020-08-22] MEDS ORDERED: MEDROXYPROGESTERONE ACET IM SCH (08:45)
== END 2020-08-09 13:45 | disposition home or self-care (01) ==
LOC: ED 11:33 → ICU 16:22
PROVIDERS: ADMIT Family Medicine; ATTEND Family Medicine
DX: R10.9 Unspecified abdominal pain (principal); R11.2 Nausea with vomiting, unspecified; R53.1 Weakness; E10.65 Type 1 diabetes mellitus with hyperglycemia; K82.8 Other specified diseases of gallbladder; E86.0 Dehydration; Z79.899 Other long term (current) drug therapy; Z79.4 Long term (current) use of insulin; Z20.828 Contact with and (suspected) exposure to other viral communicable diseases
CPT/HCPCS: 36000; 36415; 36600; 74177; 76705; 80048; 80053; 80307; 81001; 82375; 82803; 82947; 83735; 85025; 93005; 93041; 93268; 93306; 94760; 96360; 96365; 96366; 96367; 96374; 96375; 96376; 99285; G0378; U0003; J0360; J1815; J1817; J2270; J2405; J3475; A9270-GY; G0480

== ENCOUNTER 2020-08-12 19:52 | Emergency (ER) | payer OTHER ==
[2020-08-12 20:13] VITALS: O2SAT 99
[2020-08-12] MEDS ORDERED: TORAdol 30 mg Injection IM ONE (20:44)
[2020-08-12] MEDS ORDERED: ZOFRAN ODT 4 MG PO ONE (20:45)
[2020-08-12 21:17] LABS: BASOPHIL % 0.5 % (0.0-0.4); Basophil (Absolute #) 0.04 (0-0.4); Eosinophil % 1.5 % (0.00-5.0); Eosinophil (Absolute #) 0.11 (0-0.5); Hematocrit 39.3 % (35-47); Hemoglobin 12.9 gm/dl (12.0-16.0); Lymphocyte (Absolute #) 2.98 (1.0-4.6); Lymphocytes % 39.3 % (24.0-44.0); Mean Cell Volume 93.6 fl (78-100); Mean Corpuscular Hemoglobin 30.7 pg (26-32); Mean Corpuscular Hgb Concent. 32.8 g/dl (32-36); Mean Platelet Volume 10.1 fl (7.5-11.0); Monocyte (Absolute #) 0.55 (0.0-1.3); Monocytes % 7.3 % (0.0-12.0); Neutrophil % 51.4 % (36.0-66.0); Platelet Count 304 K/mm3 (150-450); White Blood Count 7.6 K/mm3 (4.0-10.5)
[2020-08-12 21:22] LABS: Appearance SLIGHTLY CLOUDY (CLEAR); Bilirubin NEGATIVE (NEGATIVE); Blood NEGATIVE Ery/ul (0-5); Epithelial Cells RARE /HPF (FEW); Glucose >=500 mg/dL (NEGATIVE); Ketones NEGATIVE (NEGATIVE); Leukocyte Esterase NEGATIVE (NEGATIVE); Mucus SLIGHT /HPF (NEGATIVE); Nitrite NEGATIVE (NEGATIVE); Protein,Urine Dip >=500 (Negative); Specific Gravity 1.027 (1.005-1.025); Urobilinogen NEGATIVE mg/dL (0-1)
[2020-08-12 21:27] LABS: ALBUMIN 3.4 g/dL (3.5-5.0); ALKALINE PHOSPHATASE 81 U/L (38-126); AMYLASE 50 U/L (30-110); ANION GAP 10.3 MEQ/L (5-15); BLOOD UREA NITROGEN 11 mg/dL (7-17); CHLORIDE 101 mmol/L (98-107); Calcium 9.1 mg/dL (8.4-10.2); Carbon Dioxide 27 mmol/L (22-30); Creatinine 1 0.53 mg/dL (0.52-1.04); EST GLOMERULAR FILTRATION RATE > 60.0 ML/MIN; Glucose 243 mg/dL (74-106); LIPASE 70 U/L (23-300); Potassium 3.6 mmol/L (3.5-5.1); SGOT/AST 24 U/L (14-36); SGPT/ALT 14 U/L (0-35); SODIUM 134 mmol/L (137-145); Total Protein 6.1 g/dL (6.3-8.2)
[2020-08-12] MEDS ORDERED: ZOFRAN ODT 4 MG ONE (21:28)
[2020-08-12] MEDS ORDERED: TORAdol 30 mg Injection ONE (21:28)
[2020-08-12 21:34] LABS: Amphetamine,Urine NEGATIVE (NEGATIVE); Barbiturate,Urine NEGATIVE (NEGATIVE); Benzodiazepine,Urine NEGATIVE (NEGATIVE); Cocaine,Urine NEGATIVE (NEGATIVE); Methadone,Urine NEGATIVE (NEGATIVE); Opiate,Urine NEGATIVE (NEGATIVE); PCP,Urine NEGATIVE (NEGATIVE); THC,Urine NEGATIVE (NEGATIVE)
--- NOTE | 2020-08-12 21:37 | ERPHSYRPT ---
- History of Present Illness Time Seen by Provider: 08/12/20 20:20 Historian: patient Exam Limitations: no limitations Patient Subjective Stated Complaint: Patient states " I started having right flank pain early this am and it hasn't got any better." I at least know what is wrong now, my gallbladder is bad and I see Dr. Sharma on Thursday next week. They sent me home with no pain meds and I can't deal with the pain." Triage Nursing Assessment: .id Physician History: Patient is a 35-year-old insulin-dependent diabetic with frequent episodes of DKA and abdominal pain who frequently visits the ER requiring fairly large amounts of analgesics. She presents after a discharge last when it was found she had sludge in her gallbladder she is to see Zachary on Thursday she denies any fevers chills or sweats she has had some nausea but no vomiting or diarrhea. [facility]. Timing/Duration: today Activities at Onset: none Quality: cramping Abdominal Pain Onset Location: RUQ, flank Severity of Pain-Max: severe Severity of Pain-Current: mild Modifying Factors: Improves With: nothing Associated Symptoms: nausea Previous symptoms: same symptoms as today Allergies/Adverse Reactions: No Known Drug Allergies Allergy (Verified 08/12/20 20:14) Home Medications: Medroxyprogesterone Acet [Depo-Provera] 150 mg IM Q90D 09/10/19 [History] Insulin Aspart (Niacinamide) [Fiasp 100 Unit/ml Flextouch] 14 units SQ AC 07/03/20 [History] Insulin Glargine,Hum.rec.anlog [Toujeo Solostar] 34 units SQ HS 07/04/20 [Hi story] Milnacipran HCl [Savella] 100 mg PO BID 07/04/20 [History] Hx Tetanus, Diphtheria Vaccination/Date Given: Yes Hx Influenza Vaccination/Date Given: No Hx Pneumococcal Vaccination/Date Given: No Immunizations Up to Date: Yes Travel Risk - International Travel Have you traveled outside of the country in past 3 weeks: No - Coronavirus Screening Are you exhibiting any of the following symptoms?: No Close contact with a COVID-19 positive Pt in past 14-21 Days: No - Vaccine Status Have you recieved a Covid-19 vaccination: No - Review of Systems Constitutional: No Fever, No Chills Eyes: No Symptoms Ears, Nose, & Throat: No Symptoms Respiratory: No Cough, No Dyspnea Cardiac: No Chest Pain, No Edema, No Syncope Abdominal/Gastrointestinal: Abdominal Pain (Right flank), No Nausea, No Vomiting, No Diarrhea Genitourinary Symptoms: No Dysuria Musculoskeletal: No Back Pain, No Neck Pain Skin: No Rash Neurological: No Dizziness, No Focal Weakness, No Sensory Changes Psychological: No Symptoms Endocrine: No Symptoms All Other Systems: Reviewed and Negative - Past Medical History Pertinent Past Medical History: Yes Neurological History: Peripheral Neuropathy ENT History: No Pertinent History Cardiac History: No Pertinent History Respiratory History: No Pertinent History Endocrine Medical History: Diabetes Type I Musculoskeletal History: Arthritis, Fibromyalgia GI Medical History: Pancreatitis History: No Pertinent History Psycho-Social History: Anxiety, Depression Female Reproductive Disorders: No Pertinent History Other Medical History: Was taken off of diabetic pump and put on sub q insulin coverage- 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 - Past Surgical History Past Surgical History: Yes Neuro Surgical History: No Pertinent History Cardiac: No Pertinent History Respiratory: No Pertinent History Gastrointestinal: No Pertinent History Genitourinary: No Pertinent History Musculoskeletal: No Pertinent History Female Surgical History: Dilation & Curettage, Section Other Surgical History: cs x2 - Social History Smoking Status: Current every day smoker How long have you smoked: 15 years Exposure to second hand smoke: No Alcohol Use: None Drug Use: none Patient Lives Alone: No Significant Family History: heart disease, diabetes - Female History Hx Now: No - Nursing Vital Signs Nursing Vital Signs: Initial Vital Signs Temperature 98.3 F 08/12/20 20:12 Pulse Rate 115 H 08/12/20 20:12 Respiratory Rate 18 08/12/20 20:12 Blood Pressure 168/107 08/12/20 20:12 O2 Sat by Pulse Oximetry 99 08/12/20 20:12 Pain Scale Pain Intensity 9 - Physical Exam General Appearance: no apparent distress, alert Eye Exam: PERRL/EOMI, eyes nml inspection Ears, Nose, Throat Exam: normal ENT inspection, pharynx normal, moist mucous membranes Neck Exam: normal inspection, non-tender, supple, full range of motion Respiratory Exam: normal breath sounds, lungs clear, No respiratory distress Cardiovascular Exam: regular rate/rhythm, normal heart sounds Gastrointestinal/Abdomen Exam: soft, tenderness, No mass Back Exam: normal inspection, normal range of motion, No CVA tenderness, No vertebral tenderness Extremity Exam: normal inspection, normal range of motion, pelvis stable Neurologic Exam: alert, oriented x 3, cooperative, normal mood/affect, nml cerebellar function, sensation nml, No motor deficits Skin Exam: normal color, warm, dry SpO2: 99 - Course Nursing assessment & vital signs reviewed: Yes Ordered Tests: Active Orders 24 hr Category Date Time Status AMYLASE Stat Lab 08/12/20 21:12 Completed CBC W DIFF Stat Lab 08/12/20 21:12 Completed CMP Stat Lab 08/12/20 21:12 Completed LIPASE Stat Lab 08/12/20 21:12 Completed Lactic Acid Stat Lab 08/12/20 21:10 Completed UA W/RFX UR CULTURE Stat Lab 08/12/20 21:12 Completed Urine Triage Profile Stat Lab 08/12/20 21:12 Completed Medication Summary Discontinued Medications Generic Name Dose Route Start Last Admin Trade Name Freq PRN Reason Stop Dose Admin Ketorolac Tromethamine 30 mg 08/12/20 20:44 08/12/20 21:31 Toradol 30 Mg Injection IM 08/12/20 20:45 30 mg STAT ONE Administration Ketorolac Tromethamine Confirm 08/12/20 21:28 Toradol 30 Mg Injection Administered 08/12/20 21:29 Dose 30 mg .ROUTE .STK-MED ONE Ondansetron HCl 4 mg 08/12/20 20:45 08/12/20 21:33 Zofran Odt 4 Mg PO 08/12/20 20:46 4 mg STAT ONE Administration Ondansetron HCl Confirm 08/12/20 21:28 Zofran Odt 4 Mg Administered 08/12/20 21:29 Dose 4 mg .ROUTE .STK-MED ONE Lab/Rad Data: Laboratory Result Diagrams 08/12/20 21:12 08/12/20 21:12 Laboratory Results 08/12/20 08/12/20 08/12/20 Range/Units 21:12 21:12 21:12 WBC 7.6 (4.0-10.5) K/mm3 RBC 4.20 (4.1-5.4) M/mm3 Hgb 12.9 (12.0-16.0) gm/dl Hct 39.3 (35-47) % MCV 93.6 (78-100) fl MCH 30.7 (26-32) pg MCHC 32.8 (32-36) g/dl RDW 12.0 (11.5-14.0) % Plt Count 304 (150-450) K/mm3 MPV 10.1 (7.5-11.0) fl Gran % 51.4 (36.0-66.0) % Eos # (Auto) 0.11 (0-0.5) Absolute Lymphs (auto) 2.98 (1.0-4.6) Absolute Monos (auto) 0.55 (0.0-1.3) Lymphocytes % 39.3 (24.0-44.0) % Monocytes % 7.3 (0.0-12.0) % Eosinophils % 1.5 (0.00-5.0) % Basophils % 0.5 (0.0-0.4) % Absolute Granulocytes 3.90 (1.4-6.9) Basophils # 0.04 (0-0.4) Sodium 134 L (137-145) mmol/L Potassium 3.6 (3.5-5.1) mmol/L Chloride 101 (98-107) mmol/L Carbon Dioxide 27 (22-30) mmol/L Anion Gap 10.3 (5-15) MEQ/L BUN 11 (7-17) mg/dL Creatinine 0.53 (0.52-1.04) mg/dL Estimated GFR > 60.0 ML/MIN Glucose 243 H (74-106) mg/dL Lactic Acid (0.4-2.0) Calcium 9.1 (8.4-10.2) mg/dL Total Bilirubin 0.30 (0.2-1.3) mg/dL AST 24 (14-36) U/L ALT 14 (0-35) U/L Alkaline Phosphatase 81 (38-126) U/L Serum Total Protein 6.1 L (6.3-8.2) g/dL Albumin 3.4 L (3.5-5.0) g/dL Amylase 50 (30-110) U/L Lipase 70 (23-300) U/L Urine Color (YELLOW) Urine Appearance (CLEAR) Urine pH (5-6) Ur Specific [place] (1.005-1.025) Urine Protein (Negative) Urine Ketones (NEGATIVE) Urine Blood (0-5) Rodney/ul Urine Nitrite (NEGATIVE) Urine Bilirubin (NEGATIVE) Urine Urobilinogen (0-1) mg/dL Ur Leukocyte Esterase (NEGATIVE) Urine WBC (Auto) (0-5) /HPF Urine RBC (Auto) (0-2) /HPF U Epithel Cells (Auto) (FEW) /HPF Urine Bacteria (Auto) (NEGATIVE) /HPF Urine Mucus (Auto) (NEGATIVE) /HPF Urine Culture Reflexed (NO) Urine Glucose (NEGATIVE) mg/dL Urine Opiates Level NEGATIVE (NEGATIVE) Ur Methadone NEGATIVE (NEGATIVE) Urine Barbiturates NEGATIVE (NEGATIVE) Ur Phencyclidine (PCP) NEGATIVE (NEGATIVE) Urine Amphetamine NEGATIVE (NEGATIVE) U Benzodiazepine Level NEGATIVE (NEGATIVE) Urine Cocaine NEGATIVE (NEGATIVE) Urine Marijuana (THC) NEGATIVE (NEGATIVE) 08/12/20 08/12/20 Range/Units 21:12 21:10 WBC (4.0-10.5) K/mm3 RBC (4.1-5.4) M/mm3 Hgb (12.0-16.0) gm/dl Hct (35-47) % MCV (78-100) fl MCH (26-32) pg MCHC (32-36) g/dl RDW (11.5-14.0) % Plt Count (150-450) K/mm3 MPV (7.5-11.0) fl Gran % (36.0-66.0) % Eos # (Auto) (0-0.5) Absolute Lymphs (auto) (1.0-4.6) Absolute Monos (auto) (0.0-1.3) Lymphocytes % (24.0-44.0) % Monocytes % (0.0-12.0) % Eosinophils % (0.00-5.0) % Basophils % (0.0-0.4) % Absolute Granulocytes (1.4-6.9) Basophils # (0-0.4) Sodium (137-145) mmol/L Potassium (3.5-5.1) mmol/L Chloride (98-107) mmol/L Carbon Dioxide (22-30) mmol/L Anion Gap (5-15) MEQ/L BUN (7-17) mg/dL Creatinine (0.52-1.04) mg/dL Estimated GFR ML/MIN Glucose (74-106) mg/dL Lactic Acid 1.4 (0.4-2.0) Calcium (8.4-10.2) mg/dL Total Bilirubin (0.2-1.3) mg/dL AST (14-36) U/L ALT (0-35) U/L Alkaline Phosphatase (38-126) U/L Serum Total Protein (6.3-8.2) g/dL Albumin (3.5-5.0) g/dL Amylase (30-110) U/L Lipase (23-300) U/L Urine Color YELLOW (YELLOW) Urine Appearance SLIGHTLY CLOUDY (CLEAR) Urine pH 6.0 (5-6) Ur Specific [place] 1.027 (1.005-1.025) Urine Protein >=500 (Negative) Urine Ketones NEGATIVE (NEGATIVE) Urine Blood NEGATIVE (0-5) Rodney/ul Urine Nitrite NEGATIVE (NEGATIVE) Urine Bilirubin NEGATIVE (NEGATIVE) Urine Urobilinogen NEGATIVE (0-1) mg/dL Ur Leukocyte Esterase NEGATIVE (NEGATIVE) Urine WBC (Auto) 3-5 (0-5) /HPF Urine RBC (Auto) 3-5 (0-2) /HPF U Epithel Cells (Auto) RARE (FEW) /HPF Urine Bacteria (Auto) NONE (NEGATIVE) /HPF Urine Mucus (Auto) SLIGHT (NEGATIVE) /HPF Urine Culture Reflexed NO (NO) Urine Glucose >=500 (NEGATIVE) mg/dL Urine Opiates Level (NEGATIVE) Ur Methadone (NEGATIVE) Urine Barbiturates (NEGATIVE) Ur Phencyclidine (PCP) (NEGATIVE) Urine Amphetamine (NEGATIVE) U Benzodiazepine Level (NEGATIVE) Urine Cocaine (NEGATIVE) Urine Marijuana (THC) (NEGATIVE) - Progress Progress: unchanged - Departure Departure Disposition: Home Clinical Impression: Abdominal pain Condition: Fair Critical Care Time: No Referrals: ALAN MORAN [Primary Care Provider] - Instructions: Flank Pain
[2020-08-12 21:47] VITALS: BP 179/97; PULSE 101
[2020-08-12] MEDS ORDERED: Hydromorphone 1 mg/ml Injection IM ONE (22:05)
[2020-08-12] MEDS ORDERED: Hydromorphone 1 mg/ml Injection ONE (22:14)
== END 2020-08-12 22:29 | disposition home or self-care (01) ==
LOC: ED 19:52
DX: R10.9 Unspecified abdominal pain (principal)
CPT/HCPCS: 36415; 80053; 80307; 81001; 82150; 83605; 83690; 85025; 96372; 99284; J1170; J1885; Q0162

== ENCOUNTER 2020-09-09 12:27 | Emergency (ER) | payer OTHER ==
[2020-09-09] MEDS ORDERED: Zofran 4 MG/2 ML VIAL IV ONE (13:00)
[2020-09-09] MEDS ORDERED: MORPHINE SULFATE 4 MG INJ IV ONE (13:00)
[2020-09-09] MEDS ORDERED: Sodium Chloride 0.9% 1000 ML 1,000 ML IV STA (13:00)
[2020-09-09] MEDS ORDERED: Sodium Chloride 0.9% 1000 ML 1,000 ML ONE (13:05)
[2020-09-09] MEDS ORDERED: MORPHINE SULFATE 4 MG INJ ONE (13:05)
[2020-09-09] MEDS ORDERED: Zofran 4 MG/2 ML VIAL ONE (13:05)
[2020-09-09 13:46] LABS: Appearance CLOUDY (CLEAR); Bacteria RARE /HPF (NEGATIVE); Bilirubin NEGATIVE (NEGATIVE); Blood NEGATIVE Ery/ul (0-5); Epithelial Cells MODERATE /HPF (FEW); Glucose >=500 mg/dL (NEGATIVE); Ketones SMALL (NEGATIVE); Leukocyte Esterase NEGATIVE (NEGATIVE); Mucus SLIGHT /HPF (NEGATIVE); Nitrite NEGATIVE (NEGATIVE); Protein,Urine Dip >=500 (Negative); RBC 0-2 /HPF (0-2); Specific Gravity 1.028 (1.005-1.025); Urobilinogen NEGATIVE mg/dL (0-1)
[2020-09-09 13:47] LABS: Absolute Neutrophil Ct (ANC) 3.77 (1.4-6.9); BASOPHIL % 0.6 % (0.0-0.4); Basophil (Absolute #) 0.04 (0-0.4); Eosinophil % 1.3 % (0.00-5.0); Eosinophil (Absolute #) 0.09 (0-0.5); Hematocrit 41.7 % (35-47); Hemoglobin 13.5 gm/dl (12.0-16.0); Lymphocyte (Absolute #) 2.58 (1.0-4.6); Lymphocytes % 37.3 % (24.0-44.0); Mean Cell Volume 92.5 fl (78-100); Mean Corpuscular Hemoglobin 29.9 pg (26-32); Mean Corpuscular Hgb Concent. 32.4 g/dl (32-36); Mean Platelet Volume 10.5 fl (7.5-11.0); Monocyte (Absolute #) 0.44 (0.0-1.3); Monocytes % 6.4 % (0.0-12.0); Neutrophil % 54.4 % (36.0-66.0); Platelet Count 267 K/mm3 (150-450); Red Blood Count 4.51 M/mm3 (4.1-5.4); Red Cell Distribution Width 12.7 % (11.5-14.0); White Blood Count 6.9 K/mm3 (4.0-10.5)
[2020-09-09 14:02] LABS: ALBUMIN 3.3 g/dL (3.5-5.0); ALKALINE PHOSPHATASE 75 U/L (38-126); ANION GAP 12.6 MEQ/L (5-15); BLOOD UREA NITROGEN 14 mg/dL (7-17); CHLORIDE 103 mmol/L (98-107); Carbon Dioxide 23 mmol/L (22-30); Creatinine 1 0.69 mg/dL (0.52-1.04); EST GLOMERULAR FILTRATION RATE > 60.0 ML/MIN; Glucose 262 mg/dL (74-106); Potassium 4.4 mmol/L (3.5-5.1); SGOT/AST 19 U/L (14-36); SGPT/ALT 8 U/L (0-35); SODIUM 134 mmol/L (137-145)
[2020-09-09 14:06] LABS: LIPASE < 10 U/L (23-300)
[2020-09-09 14:23] VITALS: BP 102/57; PULSE 100; O2SAT 98
--- NOTE | 2020-09-09 14:32 | ERPHSYRPT ---
- History of Present Illness Time Seen by Provider: 09/09/20 12:47 Historian: patient Exam Limitations: no limitations Patient Subjective Stated Complaint: pain to the right lateral side that radiates to the back Triage Nursing Assessment: Pt brought to the ER by her mom, tachycardic, pain to the right lateral chest and back for the past 4 days, was told last month that he gall bladder was bad, was to have surgery on the but surgery is res cheduling, decreased appetite, DM1, pulses normal, skin n/w/d Physician History: 35 years old female with history of type 1 diabetes mellitus poorly controlled, recently diagnosed gallbladder sludge was doing follow-up and surgery is being scheduled for presented in the ER with intermittent right upper quadrant pain since yesterday moderate to severe intensity with associated nausea no vomiting. Pain is similar to previous episodes. No fever or chills reported. Timing/Duration: day(s), intermittent, sudden, improved Activities at Onset: rest Quality: sharpness Abdominal Pain Onset Location: RUQ Pain Radiation: back Severity of Pain-Max: severe Severity of Pain-Current: moderate Modifying Factors: Worsens With: movement, palpation Associated Symptoms: nausea Previous symptoms: same symptoms as today Allergies/Adverse Reactions: No Known Drug Allergies Allergy (Verified 09/09/20 12:43) Home Medications: Medroxyprogesterone Acet [Depo-Provera] 150 mg IM Q90D 09/10/19 [History] Insulin Aspart (Niacinamide) [Fiasp 100 Unit/ml Flextouch] 14 units SQ AC 07/03/20 [History] Insulin Glargine,Hum.rec.anlog [Brandi Adams] 34 units SQ HS 07/04/20 [Histor y] Hx Tetanus, Diphtheria Vaccination/Date Given: Yes Hx Influenza Vaccination/Date Given: No Hx Pneumococcal Vaccination/Date Given: No Travel Risk - International Travel Have you traveled outside of the country in past 3 weeks: No - Coronavirus Screening Are you exhibiting any of the following symptoms?: No Close contact with a COVID-19 positive Pt in past 14-21 Days: No - Vaccine Status Have you recieved a Covid-19 vaccination: No - Review of Systems Constitutional: No Symptoms Eyes: No Symptoms Ears, Nose, & Throat: No Symptoms Respiratory: No Symptoms Cardiac: No Symptoms Abdominal/Gastrointestinal: Abdominal Pain, Nausea Genitourinary Symptoms: No Symptoms Musculoskeletal: No Symptoms Skin: No Symptoms Neurological: No Symptoms Psychological: No Symptoms Endocrine: No Symptoms Hematologic/Lymphatic: No Symptoms Immunological/Allergic: No Symptoms - Past Medical History Pertinent Past Medical History: Yes Neurological History: Peripheral Neuropathy ENT History: No Pertinent History Cardiac History: No Pertinent History Respiratory History: No Pertinent History Endocrine Medical History: Diabetes Type I Musculoskeletal History: Arthritis, Fibromyalgia GI Medical History: Pancreatitis History: No Pertinent History Psycho-Social History: Anxiety, Depression Female Reproductive Disorders: No Pertinent History Other Medical History: Was taken off of diabetic pump and put on sub q insulin coverage- [facility] (Abigail Krishnan). - Past Surgical History Past Surgical History: Yes Neuro Surgical History: No Pertinent History Cardiac: No Pertinent History Respiratory: No Pertinent History Gastrointestinal: No Pertinent History Genitourinary: No Pertinent History Musculoskeletal: No Pertinent History Female Surgical History: Dilation & Curettage, Section Other Surgical History: cs x2 - Social History Smoking Status: Current every day smoker How long have you smoked: 15 years Exposure to second hand smoke: Yes Alcohol Use: None Drug Use: none Patient Lives Alone: No Significant Family History: heart disease, diabetes - Female History Hx Now: No (depo) - Nursing Vital Signs Nursing Vital Signs: Initial Vital Signs Temperature 97.7 F 09/09/20 12:32 Pulse Rate 114 H 09/09/20 12:32 Blood Pressure 109/76 09/09/20 12:32 O2 Sat by Pulse Oximetry 100 09/09/20 12:32 Pain Scale Pain Intensity 7 - Physical Exam General Appearance: no apparent distress, alert Eye Exam: PERRL/EOMI Ears, Nose, Throat Exam: normal ENT inspection, pharynx normal Neck Exam: normal inspection, non-tender, supple, full range of motion Respiratory Exam: normal breath sounds, lungs clear, No chest tenderness Cardiovascular Exam: regular rate/rhythm, normal heart sounds Gastrointestinal/Abdomen Exam: soft, normal bowel sounds, tenderness (Minimal tenderness right upper quadrant, negative Loaiza sign) Back Exam: normal inspection, normal range of motion Extremity Exam: normal inspection, normal range of motion, pelvis stable Neurologic Exam: alert, oriented x 3, cooperative Skin Exam: normal color SpO2 Interpretation: normal SpO2: 98 O2 Delivery: Room Air Ordered Tests: Active Orders 24 hr Category Date Time Status IV Insertion STAT Care 09/09/20 13:00 Completed NPO (ED) STAT Care 09/09/20 13:00 Completed CBC W DIFF Stat Lab 09/09/20 13:04 Completed CMP Stat Lab 09/09/20 13:04 Completed HCG,QUALITATIVE URINE Stat Lab 09/09/20 13:04 Completed LIPASE Stat Lab 09/09/20 13:04 Completed UA W/RFX UR CULTURE Stat Lab 09/09/20 13:04 Completed Medication Summary Discontinued Medications Generic Name Dose Route Start Last Admin Trade Name Chaim PRN Reason Stop Dose Admin Sodium Chloride 1,000 mls @ 999 mls/hr 09/09/20 13:00 09/09/20 14:16 Sodium Chloride 0.9% 1000 Ml IV 09/09/20 14:00 Infused .Q1H1M STA Infusion Sodium Chloride Confirm 09/09/20 13:05 Sodium Chloride 0.9% 1000 Ml Administered 09/09/20 13:06 Dose 1,000 mls @ ud .ROUTE .STK-MED ONE Morphine Sulfate 4 mg 09/09/20 13:00 09/09/20 13:08 Morphine Sulfate 4 Mg Inj IV 09/09/20 13:01 4 mg STAT ONE Administration Morphine Sulfate Confirm 09/09/20 13:05 Morphine Sulfate 4 Mg Inj Administered 09/09/20 13:06 Dose 4 mg .ROUTE .STK-MED ONE Ondansetron HCl 4 mg 09/09/20 13:00 09/09/20 13:08 Zofran 4 Mg/2 Ml Vial IV 09/09/20 13:01 4 mg STAT ONE Administration Ondansetron HCl Confirm 09/09/20 13:05 Zofran 4 Mg/2 Ml Vial Administered 09/09/20 13:06 Dose 4 mg .ROUTE .STK-MED ONE Lab/Rad Data: Laboratory Result Diagrams 09/09/20 13:04 09/09/20 13:04 Laboratory Results 09/09/20 09/09/20 09/09/20 Range/Units 13:04 13:04 13:04 WBC 6.9 (4.0-10.5) K/mm3 RBC 4.51 (4.1-5.4) M/mm3 Hgb 13.5 (12.0-16.0) gm/dl Hct 41.7 (35-47) % MCV 92.5 (78-100) fl MCH 29.9 (26-32) pg MCHC 32.4 (32-36) g/dl RDW 12.7 (11.5-14.0) % Plt Count 267 (150-450) K/mm3 MPV 10.5 (7.5-11.0) fl Gran % 54.4 (36.0-66.0) % Eos # (Auto) 0.09 (0-0.5) Absolute Lymphs (auto) 2.58 (1.0-4.6) Absolute Monos (auto) 0.44 (0.0-1.3) Lymphocytes % 37.3 (24.0-44.0) % Monocytes % 6.4 (0.0-12.0) % Eosinophils % 1.3 (0.00-5.0) % Basophils % 0.6 (0.0-0.4) % Absolute Granulocytes 3.77 (1.4-6.9) Basophils # 0.04 (0-0.4) Sodium 134 L (137-145) mmol/L Potassium 4.4 (3.5-5.1) mmol/L Chloride 103 (98-107) mmol/L Carbon Dioxide 23 (22-30) mmol/L Anion Gap 12.6 (5-15) MEQ/L BUN 14 (7-17) mg/dL Creatinine 0.69 (0.52-1.04) mg/dL Estimated GFR > 60.0 ML/MIN Glucose 262 H (74-106) mg/dL Calcium 9.0 (8.4-10.2) mg/dL Total Bilirubin 0.40 (0.2-1.3) mg/dL AST 19 (14-36) U/L ALT 8 (0-35) U/L Alkaline Phosphatase 75 (38-126) U/L Serum Total Protein 6.0 L (6.3-8.2) g/dL Albumin 3.3 L (3.5-5.0) g/dL Lipase < 10 L (23-300) U/L Urine Color (YELLOW) Urine Appearance (CLEAR) Urine pH (5-6) Ur Specific [place] (1.005-1.025) Urine Protein (Negative) Urine Ketones (NEGATIVE) Urine Blood (0-5) Rodney/ul Urine Nitrite (NEGATIVE) Urine Bilirubin (NEGATIVE) Urine Urobilinogen (0-1) mg/dL Ur Leukocyte Esterase (NEGATIVE) Urine WBC (Auto) (0-5) /HPF Urine RBC (Auto) (0-2) /HPF U Epithel Cells (Auto) (FEW) /HPF Urine Bacteria (Auto) (NEGATIVE) /HPF Urine Mucus (Auto) (NEGATIVE) /HPF Urine Culture Reflexed (NO) Urine Glucose (NEGATIVE) mg/dL Urine HCG, Qual NEGATIVE (Negative) 09/09/20 Range/Units 13:04 WBC (4.0-10.5) K/mm3 RBC (4.1-5.4) M/mm3 Hgb (12.0-16.0) gm/dl Hct (35-47) % MCV (78-100) fl MCH (26-32) pg MCHC (32-36) g/dl RDW (11.5-14.0) % Plt Count (150-450) K/mm3 MPV (7.5-11.0) fl Gran % (36.0-66.0) % Eos # (Auto) (0-0.5) Absolute Lymphs (auto) (1.0-4.6) Absolute Monos (auto) (0.0-1.3) Lymphocytes % (24.0-44.0) % Monocytes % (0.0-12.0) % Eosinophils % (0.00-5.0) % Basophils % (0.0-0.4) % Absolute Granulocytes (1.4-6.9) Basophils # (0-0.4) Sodium (137-145) mmol/L Potassium (3.5-5.1) mmol/L Chloride (98-107) mmol/L Carbon Dioxide (22-30) mmol/L Anion Gap (5-15) MEQ/L BUN (7-17) mg/dL Creatinine (0.52-1.04) mg/dL Estimated GFR ML/MIN Glucose (74-106) mg/dL Calcium (8.4-10.2) mg/dL Total Bilirubin (0.2-1.3) mg/dL AST (14-36) U/L ALT (0-35) U/L Alkaline Phosphatase (38-126) U/L Serum Total Protein (6.3-8.2) g/dL Albumin (3.5-5.0) g/dL Lipase (23-300) U/L Urine Color EN (YELLOW) Urine Appearance CLOUDY (CLEAR) Urine pH 5.0 (5-6) Ur Specific [place] 1.028 (1.005-1.025) Urine Protein >=500 (Negative) Urine Ketones SMALL (NEGATIVE) Urine Blood NEGATIVE (0-5) Rodney/ul Urine Nitrite NEGATIVE (NEGATIVE) Urine Bilirubin NEGATIVE (NEGATIVE) Urine Urobilinogen NEGATIVE (0-1) mg/dL Ur Leukocyte Esterase NEGATIVE (NEGATIVE) Urine WBC (Auto) 3-5 (0-5) /HPF Urine RBC (Auto) 0-2 (0-2) /HPF U Epithel Cells (Auto) MODERATE (FEW) /HPF Urine Bacteria (Auto) RARE (NEGATIVE) /HPF Urine Mucus (Auto) SLIGHT (NEGATIVE) /HPF Urine Culture Reflexed NO (NO) Urine Glucose >=500 (NEGATIVE) mg/dL Urine HCG, Qual (Negative) - Progress Progress: improved Progress Note: 09/09/20 14:30 She is given symptomatic treatment along with fluids. Baseline labs are grossly unremarkable. No elevated liver enzymes. Normal bilirubin. Normal lipase. I believe patient has biliary colic, do not think needs CT imaging or ultrasound. Recommended outpatient follow-up with Dr. Sharma. Discussed signs symptoms of worsening needing return to ER which he seems understanding. Counseled pt/family regarding: lab results, diagnosis, need for follow-up - Departure Departure Disposition: Home Clinical Impression: Biliary colic symptom Condition: Stable Critical Care Time: No Referrals: ALAN MORAN [Primary Care Provider] - (1-2 days for reevaluation) NAILA SHARMA MD [ASSOCIATE STAFF] - (Call tomorrow for appointment/reevaluation) Instructions: Acute Abdomen (Belly Pain), Adult (DC), Gallstones (DC) Additional Instructions: Take Tylenol/ibuprofen as needed. Follow-up with primary care and general surgery for reevaluation. Return to ER for intractable pain/vomiting/fever chills etc.
== END 2020-09-09 14:32 | disposition home or self-care (01) ==
LOC: ED 12:27
DX: K59.00 Constipation, unspecified (principal)
CPT/HCPCS: 36000; 36415; 80053; 81001; 83690; 84703; 85025; 96360; 96374; 96375; 99284; J2270; J2405

== ENCOUNTER 2020-09-10 14:47 | Emergency (ER) | payer OTHER ==
[2020-09-10 15:09] VITALS: PULSE 110; O2SAT 97
[2020-09-10] MEDS ORDERED: TORAdol 30 mg Injection IV ONE (15:31)
[2020-09-10] MEDS ORDERED: TORAdol 30 mg Injection ONE (16:05)
--- NOTE | 2020-09-10 16:08 | ERPHSYRPT ---
- History of Present Illness Time Seen by Provider: 09/10/20 15:25 Source: patient Exam Limitations: no limitations Patient Subjective Stated Complaint: Pt seen in ER last night for abdominal pain. Had previous ct scan done in July. Scheduled for gallbladder removal with Dr Sharma on 09/12/20. Pt continues to have abdominal pain today. Reports nausea but no vomiting. Denies fever. Pt also diabetic. Reports home FSBS 400. Reports decreased appetitie and oral intake. Also states she feels like her shingles are coming back. Pt reports discomfort to right flank area. Triage Nursing Assessment: Pt skin pink, warm, dry. Active bowel sounds throughout. Abdomen soft, tender on palpation of all quads. No obvious skin lesions to right flank area. Allergies/Adverse Reactions: No Known Drug Allergies Allergy (Verified 09/10/20 15:10) Home Medications: Medroxyprogesterone Acet [Depo-Provera] 150 mg IM Q90D 09/10/19 [History] Insulin Aspart (Niacinamide) [Fiasp 100 Unit/ml Flextouch] 14 units SQ AC 07/03/20 [History] Insulin Glargine,Hum.rec.anlog [Toujeo Solostar] 34 units SQ HS 07/04/20 [History] Hx Tetanus, Diphtheria Vaccination/Date Given: Yes Hx Influenza Vaccination/Date Given: No Hx Pneumococcal Vaccination/Date Given: No Travel Risk - International Travel Have you traveled outside of the country in past 3 weeks: No - Coronavirus Screening Are you exhibiting any of the following symptoms?: No Close contact with a COVID-19 positive Pt in past 14-21 Days: No - Vaccine Status Have you recieved a Covid-19 vaccination: No - Past Medical History Pertinent Past Medical History: Yes Neurological History: Peripheral Neuropathy ENT History: No Pertinent History Cardiac History: No Pertinent History Respiratory History: No Pertinent History Endocrine Medical History: Diabetes Type I Musculoskeletal History: Arthritis, Fibromyalgia GI Medical History: Pancreatitis History: No Pertinent History Psycho-Social History: Anxiety, Depression Female Reproductive Disorders: No Pertinent History Other Medical History: Was taken off of diabetic pump and put on sub q insulin coverage- 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 - Past Surgical History Past Surgical History: Yes Neuro Surgical History: No Pertinent History Cardiac: No Pertinent History Respiratory: No Pertinent History Gastrointestinal: No Pertinent History Genitourinary: No Pertinent History Musculoskeletal: No Pertinent History Female Surgical History: Dilation & Curettage, Section Other Surgical History: cs x2 - Social History Smoking Status: Current every day smoker How long have you smoked: 15 years Exposure to second hand smoke: Yes Alcohol Use: None Drug Use: none Patient Lives Alone: No Significant Family History: heart disease, diabetes - Female History Hx Last Menstrual Period: Depo Hx Now: No - Nursing Vital Signs Nursing Vital Signs: Initial Vital Signs Temperature 97.3 F 09/10/20 15:02 Pulse Rate 110 H 09/10/20 15:02 Respiratory Rate 14 09/10/20 15:02 Blood Pressure 146/92 09/10/20 15:02 O2 Sat by Pulse Oximetry 97 09/10/20 15:02 Pain Scale Pain Intensity 9 - Physical Exam SpO2: 97 Ordered Tests: Active Orders 24 hr Category Date Time Status GALLBLADDER [US] Routine Exams 09/10/20 15:51 Taken POCT GLUCOSE Stat Lab 09/10/20 15:15 Completed Medication Summary Discontinued Medications Generic Name Dose Route Start Last Admin Trade Name Chaim PRN Reason Stop Dose Admin Acyclovir 800 mg 09/10/20 16:13 09/10/20 16:15 Zovirax 800 Mg PO 09/10/20 16:14 800 mg ONCE STA Administration Acyclovir Confirm 09/10/20 16:13 Zovirax 200 Mg Administered 09/10/20 16:14 Dose 800 mg .ROUTE .STK-MED ONE Ketorolac Tromethamine 30 mg 09/10/20 15:31 09/10/20 16:05 Toradol 30 Mg Injection IV 09/10/20 15:32 30 mg STAT ONE Administration Ketorolac Tromethamine Confirm 09/10/20 16:05 Toradol 30 Mg Injection Administered 09/10/20 16:06 Dose 30 mg .ROUTE .STK-MED ONE Lab/Rad Data: Laboratory Results 09/10/20 Range/Units 15:15 POC Glucometer 197 H (74 to 106) mg/dL - Progress Progress: improved Progress Note: Patient reassessed. Pain improved. We attempted to contact Dr. Sharma but he is in the OR at this time. Patient states she has a spot on her back which she believes is the beginning of shingles. Patient received 100 mg acyclovir for shingles outbreak. Patient is scheduled to have surgery, cholecystectomy done to be performed by Dr. Sharma this coming . Patient received Toradol for pain control. Repeat ultrasound today reveals no acute cholecystitis. No indication for further work-up at this time will discharge home. Patient follow-up with her primary care doctor within 48 hours for reevaluation. Or patient can follow-up with her surgeon. She currently has a procedure scheduled for . Mother bedside. They voiced no other complaints concerns at this time. 09/10/20 16:17 09/10/20 16:21 Portions of this note were created with voice recognition technology. There may be grammatical, spelling, punctuation or sound alike errors 09/10/20 16:33 Return call. He stated that patient may stay in the hospital if she has severe persistent pain. Patient is comfortable at this time and prefers to go home. Discussed with : Tra Counseled pt/family regarding: lab results, diagnosis, need for follow-up, rad results - Departure Departure Disposition: Home Clinical Impression: Biliary colic, Shingles Condition: Stable Critical Care Time: No Referrals: ALAN MORAN [Primary Care Provider] - Additional Instructions: Discharge/Care Plan EDITHJUANAYE LAWLER was seen on 09/10/20 in the Emergency Room. The patient was counseled regarding Diagnosis,Lab results, Imaging studies, need for follow up and when to return to the Emergency Room. Prescriptions given: Discharge Note I have spoken with the patient and/or caregivers. I have explained the patient's condition, diagnosis and treatment plan based on the information available to me at this time. I have answered the patient's and/or caregiver's questions and addressed any concerns. The patient and/or caregivers have as good understanding of the patient's diagnosis, condition and treatment plan as can be expected at this point. The vital signs have been stable. The patient's condition is stable and appropriate for discharge from the emergency department. The patient will pursue further outpatient evaluation with the primary care physician or other designated or consulting physician as outlined in the discharge instructions. The patient and/or caregivers are agreeable to this plan of care and follow-up instructions have been explained in detail. The patient and/or caregivers have received these instruction. The patient/and or caregivers are aware that any significant change in condition or worsening of symptoms should prompt an immediate return to this or the closest emergency department or call 911. Prescriptions: Ketorolac Tromethamine [Toradol] 10 mg PO TID 5 Days #15 tablet Acyclovir 800 mg [Zovirax 800 mg] 800 mg PO 5XD 7 Days #35 tablet
[2020-09-10] MEDS ORDERED: ZOVIRAX 200 MG ONE (16:13)
[2020-09-10] MEDS ORDERED: ZOVIRAX 800 MG PO STA (16:13)
[2020-09-10 16:14] VITALS: BP 167/89
--- NOTE | 2020-09-10 16:27 | XRAY ---
Indication: Right upper quadrant pain. Two-dimensional gallbladder sonogram performed. Comparison: August 08, 2020. Gallbladder normally distended again with minimal sludge in the dependent portion. No gallstones, abnormal gallbladder wall thickening, or pericholecystic fluid. Common bile duct measures 2.8 mm. No intrahepatic biliary distention. Right kidney measures 11.5 cm in length with stable 1 cm upper pole cyst. Remaining visualized liver and pancreas sonographically unremarkable. No ascites. Impression: Stable gallbladder sonogram again demonstrating minimal gallbladder sludge and right renal cyst. No new abnormalities.
== END 2020-09-10 16:54 | disposition home or self-care (01) ==
LOC: ED 14:47
DX: K80.50 Calculus of bile duct without cholangitis or cholecystitis without obstruction (principal); B02.9 Zoster without complications; Q75.9 Congenital malformation of skull and face bones, unspecified; Q44.1 Other congenital malformations of gallbladder; N28.1 Cyst of kidney, acquired
CPT/HCPCS: 76705; 82947; 96374; 99284; J1885; A9270-GY

== ENCOUNTER 2020-09-10 21:04 | Observation (INO) | payer OTHER ==
--- NOTE | 2020-09-10 21:19 | ERPHSYRPT ---
- History of Present Illness Time Seen by Provider: 09/10/20 21:30 Source: patient Exam Limitations: no limitations Physician History: Patient is a 35-year-old female presents to our ED for the second time today. Patient is here for right upper quadrant pain/biliary colic. Patient is known to have gallbladder sludge and intermittent biliary colic. Patient is currently scheduled to have an elective cholecystectomy performed next . Patient's surgeon is Dr. Sharma. During patient's initial visit today we performed a gallbladder ultrasound. I personally evaluated patient. I spoke to Dr. Kane Sharma. Per Dr. Sharma patient could go home if her pain was well controlled. Patient stated she felt well. However patient was advised to return if the pain became unbearable. Patient is here again for the second time today because the right upper quadrant pain is significant. No indication for repeat ultrasound at this time. We will contact the general surgery [facility] for further recommendations. Patient otherwise feels well. She denies nausea or vomiting. No trauma. No fever. Patient voices no other complaints or concerns at this time. Timing/Duration: today Severity: moderate Modifying Factors: Improves With: other (Toradol significantly improved pain during patient's initial visit.) Associated Symptoms: denies symptoms, abdominal pain, No nausea, No vomiting, No shortness of breath, No heartburn, No diaphoresis, No cough, No fever, No headaches, No syncope Allergies/Adverse Reactions: No Known Drug Allergies Allergy (Verified 09/10/20 21:31) Home Medications: Medroxyprogesterone Acet [Depo-Provera] 150 mg IM Q90D 09/10/19 [History] Insulin Aspart (Niacinamide) [Fiasp 100 Unit/ml Flextouch] 14 units SQ AC 07/03/20 [History] Insulin Glargine,Hum.rec.anlog [Brandi Solnadine] 34 units SQ HS 07/04/20 [History] Hx Tetanus, Diphtheria Vaccination/Date Given: Yes Hx Influenza Vaccination/Date Given: No Hx Pneumococcal Vaccination/Date Given: No Travel Risk - Vaccine Status Have you recieved a Covid-19 vaccination: No - Review of Systems Constitutional: No Symptoms, No Fever, No Chills Eyes: No Symptoms Ears, Nose, & Throat: No Symptoms Respiratory: No Symptoms, No Cough, No Dyspnea Cardiac: No Symptoms, No Chest Pain, No Edema, No Syncope Abdominal/Gastrointestinal: No Symptoms, No Abdominal Pain, No Nausea, No Vomiting, No Diarrhea Genitourinary Symptoms: No Symptoms, No Dysuria Musculoskeletal: No Symptoms, No Back Pain, No Neck Pain Skin: No Symptoms, No Rash Neurological: No Symptoms, No Dizziness, No Focal Weakness, No Sensory Changes Psychological: No Symptoms Endocrine: No Symptoms Hematologic/Lymphatic: No Symptoms Immunological/Allergic: No Symptoms All Other Systems: Reviewed and Negative - Past Medical History Pertinent Past Medical History: Yes Neurological History: Peripheral Neuropathy ENT History: No Pertinent History Cardiac History: No Pertinent History Respiratory History: No Pertinent History Endocrine Medical History: Diabetes Type I Musculoskeletal History: Arthritis, Fibromyalgia GI Medical History: Pancreatitis History: No Pertinent History Psycho-Social History: Anxiety, Depression Female Reproductive Disorders: No Pertinent History Other Medical History: Was taken off of diabetic pump and put on sub q insulin coverage- 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 - Past Surgical History Past Surgical History: Yes Neuro Surgical History: No Pertinent History Cardiac: No Pertinent History Respiratory: No Pertinent History Gastrointestinal: No Pertinent History Genitourinary: No Pertinent History Musculoskeletal: No Pertinent History Female Surgical History: Dilation & Curettage, Section Other Surgical History: cs x2 - Social History Smoking Status: Current every day smoker How long have you smoked: 15 years Exposure to second hand smoke: Yes Alcohol Use: None Drug Use: none Patient Lives Alone: No Significant Family History: heart disease, diabetes - Nursing Vital Signs Nursing Vital Signs: Initial Vital Signs Temperature 98.2 F 09/10/20 21:24 Pulse Rate 109 H 09/10/20 21:24 Respiratory Rate 16 09/10/20 21:24 Blood Pressure 166/106 09/10/20 21:24 O2 Sat by Pulse Oximetry 100 09/10/20 21:24 Pain Scale Pain Intensity 9 - Physical Exam General Appearance: no apparent distress, alert Eye Exam: PERRL/EOMI, eyes nml inspection Ears, Nose, Throat Exam: normal ENT inspection, TMs normal, pharynx normal, moist mucous membranes Neck Exam: normal inspection, non-tender, supple, full range of motion Respiratory Exam: normal breath sounds, lungs clear, No respiratory distress Cardiovascular Exam: regular rate/rhythm, normal heart sounds, normal peripheral pulses Gastrointestinal/Abdomen Exam: soft, normal bowel sounds, No tenderness, No mass Back Exam: normal inspection, normal range of motion, No CVA tenderness, No vertebral tenderness Extremity Exam: normal inspection, normal range of motion, pelvis stable Neurologic Exam: alert, oriented x 3, cooperative, normal mood/affect, nml cerebellar function, nml station & gait, sensation nml, No motor deficits Skin Exam: normal color, warm, dry, No rash Lymphatic Exam: No adenopathy SpO2 Interpretation: normal SpO2: 100 O2 Delivery: Room Air - Course Nursing assessment & vital signs reviewed: Yes Ordered Tests: Active Orders 24 hr Category Date Time Status IV Insertion STAT Care 09/10/20 21:32 Active CBC W DIFF Stat Lab 09/10/20 21:44 Completed CMP Stat Lab 09/10/20 21:44 Completed CULTURE,URINE Stat Lab 09/10/20 22:35 Received LIPASE Stat Lab 09/10/20 21:44 Completed UA W/RFX UR CULTURE Stat Lab 09/10/20 22:35 Completed Transfer Order Routine Transfer 09/11/20 Ordered Medication Summary Generic Name Dose Route Start Last Admin Trade Name Freq PRN Reason Stop Dose Admin Sodium Chloride 1,000 mls @ 100 mls/hr 09/10/20 21:45 09/10/20 22:16 Sodium Chloride 0.9% 1000 Ml IV 10/10/20 21:44 100 mls/hr .Q10H ELOY Administration Discontinued Medications Generic Name Dose Route Start Last Admin Trade Name Keatonq PRN Reason Stop Dose Admin Morphine Sulfate 2 mg 09/10/20 21:32 09/10/20 22:21 Morphine Sulfate 2 Mg Inj IV 09/10/20 21:33 2 mg STAT ONE Administration Morphine Sulfate Confirm 09/10/20 22:14 Morphine Sulfate 2 Mg Inj Administered 09/10/20 22:15 Dose 2 mg .ROUTE .STK-MED ONE Ondansetron HCl 4 mg 09/10/20 21:32 09/10/20 22:17 Zofran 4 Mg/2 Ml Vial IV 09/10/20 21:33 4 mg STAT ONE Administration Ondansetron HCl Confirm 09/10/20 22:13 Zofran 4 Mg/2 Ml Vial Administered 09/10/20 22:14 Dose 4 mg .ROUTE .STK-MED ONE Lab/Rad Data: Laboratory Result Diagrams 09/10/20 21:44 09/10/20 21:44 Laboratory Results 09/10/20 09/10/20 09/10/20 Range/Units 22:35 21:56 21:44 WBC (4.0-10.5) K/mm3 RBC (4.1-5.4) M/mm3 Hgb (12.0-16.0) gm/dl Hct (35-47) % MCV (78-100) fl MCH (26-32) pg MCHC (32-36) g/dl RDW (11.5-14.0) % Plt Count (150-450) K/mm3 MPV (7.5-11.0) fl Gran % (36.0-66.0) % Eos # (Auto) (0-0.5) Absolute Lymphs (auto) (1.0-4.6) Absolute Monos (auto) (0.0-1.3) Lymphocytes % (24.0-44.0) % Monocytes % (0.0-12.0) % Eosinophils % (0.00-5.0) % Basophils % (0.0-0.4) % Absolute Granulocytes (1.4-6.9) Basophils # (0-0.4) Sodium 137 (137-145) mmol/L Potassium 4.0 (3.5-5.1) mmol/L Chloride 102 (98-107) mmol/L Carbon Dioxide 23 (22-30) mmol/L Anion Gap 15.8 H (5-15) MEQ/L BUN 14 (7-17) mg/dL Creatinine 0.72 (0.52-1.04) mg/dL Estimated GFR > 60.0 ML/MIN Glucose 160 H (74-106) mg/dL Calcium 9.7 (8.4-10.2) mg/dL Total Bilirubin 0.40 (0.2-1.3) mg/dL AST 26 (14-36) U/L ALT 14 (0-35) U/L Alkaline Phosphatase 76 (38-126) U/L Serum Total Protein 7.3 (6.3-8.2) g/dL Albumin 4.2 (3.5-5.0) g/dL Lipase 21 L (23-300) U/L Urine Color EN (YELLOW) Urine Appearance SLIGHTLY CLOUDY (CLEAR) Urine pH 5.0 (5-6) Ur Specific [place] 1.025 (1.005-1.025) Urine Protein >=500 (Negative) Urine Ketones TRACE (NEGATIVE) Urine Blood NEGATIVE (0-5) Rodney/ul Urine Nitrite NEGATIVE (NEGATIVE) Urine Bilirubin SMALL (NEGATIVE) Urine Urobilinogen 2 (0-1) mg/dL Ur Leukocyte Esterase NEGATIVE (NEGATIVE) Urine WBC (Auto) 6-10 (0-5) /HPF Urine RBC (Auto) 3-5 (0-2) /HPF U Hyaline Cast (Auto) 26-50 (0-2) /LPF U Epithel Cells (Auto) FEW (FEW) /HPF Urine Bacteria (Auto) RARE (NEGATIVE) /HPF Granular Casts (Auto) 5-10 (NEGATIVE) /LPF Urine Mucus (Auto) SLIGHT (NEGATIVE) /HPF Urine Culture Reflexed YES (NO) Urine Glucose >=500 (NEGATIVE) mg/dL SARS-CoV-2 (PCR) NEGATIVE (NEGATIVE) 09/10/20 Range/Units 21:44 WBC 8.3 (4.0-10.5) K/mm3 RBC 4.65 (4.1-5.4) M/mm3 Hgb 13.9 (12.0-16.0) gm/dl Hct 42.3 (35-47) % MCV 91.0 (78-100) fl MCH 29.9 (26-32) pg MCHC 32.9 (32-36) g/dl RDW 12.6 (11.5-14.0) % Plt Count 331 (150-450) K/mm3 MPV 9.8 (7.5-11.0) fl Gran % 52.6 (36.0-66.0) % Eos # (Auto) 0.10 (0-0.5) Absolute Lymphs (auto) 3.29 (1.0-4.6) Absolute Monos (auto) 0.51 (0.0-1.3) Lymphocytes % 39.6 (24.0-44.0) % Monocytes % 6.1 (0.0-12.0) % Eosinophils % 1.2 (0.00-5.0) % Basophils % 0.5 (0.0-0.4) % Absolute Granulocytes 4.36 (1.4-6.9) Basophils # 0.04 (0-0.4) Sodium (137-145) mmol/L Potassium (3.5-5.1) mmol/L Chloride (98-107) mmol/L Carbon Dioxide (22-30) mmol/L Anion Gap (5-15) MEQ/L BUN (7-17) mg/dL Creatinine (0.52-1.04) mg/dL Estimated GFR ML/MIN Glucose (74-106) mg/dL Calcium (8.4-10.2) mg/dL Total Bilirubin (0.2-1.3) mg/dL AST (14-36) U/L ALT (0-35) U/L Alkaline Phosphatase (38-126) U/L Serum Total Protein (6.3-8.2) g/dL Albumin (3.5-5.0) g/dL Lipase (23-300) U/L Urine Color (YELLOW) Urine Appearance (CLEAR) Urine pH (5-6) Ur Specific [place] (1.005-1.025) Urine Protein (Negative) Urine Ketones (NEGATIVE) Urine Blood (0-5) Rodney/ul Urine Nitrite (NEGATIVE) Urine Bilirubin (NEGATIVE) Urine Urobilinogen (0-1) mg/dL Ur Leukocyte Esterase (NEGATIVE) Urine WBC (Auto) (0-5) /HPF Urine RBC (Auto) (0-2) /HPF U Hyaline Cast (Auto) (0-2) /LPF U Epithel Cells (Auto) (FEW) /HPF Urine Bacteria (Auto) (NEGATIVE) /HPF Granular Casts (Auto) (NEGATIVE) /LPF Urine Mucus (Auto) (NEGATIVE) /HPF Urine Culture Reflexed (NO) Urine Glucose (NEGATIVE) mg/dL SARS-CoV-2 (PCR) (NEGATIVE) - Departure Departure Disposition: Observation Clinical Impression: Biliary colic, Proteinuria Condition: Stable Critical Care Time: No Referrals: ALAN MORAN [Primary Care Provider] -
[2020-09-10] MEDS ORDERED: MORPHINE SULFATE 2 MG INJ IV ONE (21:32)
[2020-09-10] MEDS ORDERED: Zofran 4 MG/2 ML VIAL IV ONE (21:32)
[2020-09-10] MEDS ORDERED: Sodium Chloride 0.9% 1000 ML 1,000 ML IV SCH (21:45)
[2020-09-10 21:52] LABS: Absolute Neutrophil Ct (ANC) 4.36 (1.4-6.9); BASOPHIL % 0.5 % (0.0-0.4); Basophil (Absolute #) 0.04 (0-0.4); Eosinophil % 1.2 % (0.00-5.0); Hematocrit 42.3 % (35-47); Hemoglobin 13.9 gm/dl (12.0-16.0); Lymphocyte (Absolute #) 3.29 (1.0-4.6); Lymphocytes % 39.6 % (24.0-44.0); Mean Corpuscular Hemoglobin 29.9 pg (26-32); Mean Corpuscular Hgb Concent. 32.9 g/dl (32-36); Mean Platelet Volume 9.8 fl (7.5-11.0); Monocyte (Absolute #) 0.51 (0.0-1.3); Monocytes % 6.1 % (0.0-12.0); Neutrophil % 52.6 % (36.0-66.0); Platelet Count 331 K/mm3 (150-450); Red Blood Count 4.65 M/mm3 (4.1-5.4); Red Cell Distribution Width 12.6 % (11.5-14.0); White Blood Count 8.3 K/mm3 (4.0-10.5)
[2020-09-10 22:01] LABS: ALBUMIN 4.2 g/dL (3.5-5.0); ALKALINE PHOSPHATASE 76 U/L (38-126); ANION GAP 15.8 MEQ/L (5-15); BLOOD UREA NITROGEN 14 mg/dL (7-17); CHLORIDE 102 mmol/L (98-107); Calcium 9.7 mg/dL (8.4-10.2); Carbon Dioxide 23 mmol/L (22-30); Creatinine 1 0.72 mg/dL (0.52-1.04); EST GLOMERULAR FILTRATION RATE > 60.0 ML/MIN; Glucose 160 mg/dL (74-106); LIPASE 21 U/L (23-300); SGOT/AST 26 U/L (14-36); SGPT/ALT 14 U/L (0-35); SODIUM 137 mmol/L (137-145); Total Protein 7.3 g/dL (6.3-8.2)
[2020-09-10] MEDS ORDERED: Zofran 4 MG/2 ML VIAL ONE (22:13)
[2020-09-10] MEDS ORDERED: Sodium Chloride 0.9% 1000 ML 1,000 ML ONE (22:14)
[2020-09-10] MEDS ORDERED: MORPHINE SULFATE 2 MG INJ ONE (22:14)
[2020-09-10 22:44] LABS: Appearance SLIGHTLY CLOUDY (CLEAR); Bacteria RARE /HPF (NEGATIVE); Bilirubin SMALL (NEGATIVE); Blood NEGATIVE Ery/ul (0-5); Epithelial Cells FEW /HPF (FEW); Glucose >=500 mg/dL (NEGATIVE); Hyaline Casts 26-50 /LPF (0-2); Ketones TRACE (NEGATIVE); Leukocyte Esterase NEGATIVE (NEGATIVE); Mucus SLIGHT /HPF (NEGATIVE); Nitrite NEGATIVE (NEGATIVE); Protein,Urine Dip >=500 (Negative); Specific Gravity 1.025 (1.005-1.025); Urobilinogen 2 mg/dL (0-1)
[2020-09-11] MEDS ORDERED: Hydromorphone 1 mg/ml Injection IV ONE (00:46)
[2020-09-11] MEDS ORDERED: Hydromorphone 1 mg/ml Injection ONE (00:50)
[2020-09-11] MEDS: MORPHINE SULFATE 4 MG INJ IV PRN ×5 (04:10→20:47)
[2020-09-11 04:27] LABS: Absolute Neutrophil Ct (ANC) 2.97 (1.4-6.9); BASOPHIL % 0.3 % (0.0-0.4); Basophil (Absolute #) 0.02 (0-0.4); Eosinophil % 1.1 % (0.00-5.0); Eosinophil (Absolute #) 0.08 (0-0.5); Hematocrit 36.5 % (35-47); Hemoglobin 11.9 gm/dl (12.0-16.0); Lymphocyte (Absolute #) 3.78 (1.0-4.6); Lymphocytes % 51.4 % (24.0-44.0); Mean Cell Volume 91.7 fl (78-100); Mean Corpuscular Hemoglobin 29.9 pg (26-32); Mean Corpuscular Hgb Concent. 32.6 g/dl (32-36); Mean Platelet Volume 9.8 fl (7.5-11.0); Monocytes % 6.8 % (0.0-12.0); Neutrophil % 40.4 % (36.0-66.0); Platelet Count 300 K/mm3 (150-450); Red Blood Count 3.98 M/mm3 (4.1-5.4); Red Cell Distribution Width 12.4 % (11.5-14.0); White Blood Count 7.4 K/mm3 (4.0-10.5)
[2020-09-11 04:40] LABS: ALBUMIN 3.4 g/dL (3.5-5.0); ALKALINE PHOSPHATASE 60 U/L (38-126); ANION GAP 13.8 MEQ/L (5-15); BLOOD UREA NITROGEN 16 mg/dL (7-17); CHLORIDE 104 mmol/L (98-107); Calcium 9.1 mg/dL (8.4-10.2); Carbon Dioxide 22 mmol/L (22-30); Creatinine 1 0.81 mg/dL (0.52-1.04); EST GLOMERULAR FILTRATION RATE > 60.0 ML/MIN; Glucose 203 mg/dL (74-106); Potassium 3.8 mmol/L (3.5-5.1); SGOT/AST 23 U/L (14-36); SGPT/ALT 12 U/L (0-35); SODIUM 136 mmol/L (137-145); Total Protein 6.1 g/dL (6.3-8.2)
[2020-09-11] MEDS: Sodium Chloride 0.9% 1000 ML 1,000 ML IV SCH ×2 (08:30→19:32)
[2020-09-11] MEDS: PROTONIX 40 MG IV IV SCH (08:31)
[2020-09-11] MEDS ORDERED: INSULIN ASPART 14 UNIT SQ SCH (11:30)
[2020-09-11] MEDS ORDERED: [UNRECOGNIZED DRUG - OTHER] SQ SCH (11:30)
[2020-09-11] MEDS ORDERED: MEDROXYPROGESTERONE ACET IM SCH (11:30)
[2020-09-11] MEDS: HUMALOG SQ SCH ×2 (13:04→18:37)
--- NOTE | 2020-09-11 13:41 | PCM.DCORD ---
- Discharge Discharge Date: 09/11/20 Disposition: Home, Self-Care Condition: Stable Prescriptions: New Hydrocodone/Acetaminophen [Hydrocodone-Acetamin 7.5-325] 1 each PO Q6H PRN #28 tablet MDD 4 tablets PRN Reason: Pain Continue Medroxyprogesterone Acet [Depo-Provera] 150 mg IM Q90D Insulin Aspart (Niacinamide) [Fiasp 100 Unit/ml Flextouch] 14 units SQ AC Insulin Glargine,Hum.rec.anlog [Toujeo Solostar] 34 units SQ HS PANTOPRAZOLE 40 mg Tablet [Protonix 40MG Tablet] 40 mg PO QAM #30 tab Acyclovir 800 mg [Zovirax 800 mg] 800 mg PO 5XD 7 Days #35 tablet Ketorolac Tromethamine [Toradol] 10 mg PO TID 5 Days #15 tablet Additional Instructions: Patient is to present for previously schedule cholecystectomy this week. Follow up with: ALAN MORAN [Primary Care Provider] -
[2020-09-11] MEDS: TORAdol 10 MG TABLET PO SCH ×2 (14:53→21:46)
[2020-09-11] MEDS: ZOVIRAX 800 MG PO SCH ×3 (14:53→23:04)
[2020-09-11] MEDS: Zofran 4 MG/2 ML VIAL IV PRN ×2 (14:57→23:04)
[2020-09-11 16:18] LABS: ALBUMIN 3.4 g/dL (3.5-5.0); BILIRUBIN,TOTAL 0.3 mg/dL (0.2-1.3)
[2020-09-11] MEDS ORDERED: INSULIN GLARGINE HUM REC ANLOG 34 UNIT SQ SCH (22:00)
[2020-09-11] MEDS ORDERED: Lantus Insulin SQ SCH (22:00)
[2020-09-12] MEDS: MORPHINE SULFATE 4 MG INJ IV PRN ×4 (00:41→14:33)
[2020-09-12] MEDS: Zofran 4 MG/2 ML VIAL IV PRN ×2 (06:10→13:13)
[2020-09-12] MEDS: Sodium Chloride 0.9% 1000 ML 1,000 ML IV SCH (06:12)
[2020-09-12 08:03] VITALS: O2SAT 98
[2020-09-12] MEDS: ZOVIRAX 800 MG PO SCH ×3 (08:13→14:33)
[2020-09-12] MEDS: HUMALOG SQ SCH ×2 (08:21→13:13)
--- NOTE | 2020-09-12 09:21 | HP ---
HISTORY OF PRESENT ILLNESS: The patient is a 35 year-old who apparently had some biliary colic, had some right upper quadrant epigastric pain, some nausea, had some gallbladder sludge. She had some recurrent symptoms so was admitted. PAST MEDICAL HISTORY: Diabetes. Depression. Anxiety. Fibromyalgia. Arthritis. She had pancreatitis in the past. PAST SURGICAL HISTORY: D&C. section. MEDICATIONS: Depo-Provera, Insulin Aspart, Insulin Glargine. ALLERGIES: NKDA. FAMILY HISTORY: Heart disease. SOCIAL HISTORY: Half pack per day smoker, denies alcohol abuse. REVIEW OF SYSTEMS: Fourteen systems reviewed per admission assessment. No chest pain or palpitations. She has some neuropathy as well as fibromyalgia and arthritis. PHYSICAL EXAMINATION: She is afebrile with blood pressure 166/106. GENERAL: No acute distress. HEENT: Sclerae nonicteric. NECK: No JVD. CHEST: Equal excursion, nonlabored breathing. CVS: Regular rhythm. ABDOMEN: Soft, some mild tenderness right upper quadrant. No peritoneal signs. EXTREMITIES: No significant edema. NEURO: Alert, oriented, moving extremities symmetrically. PSYCH: Appropriate mood and affect. LAB DATA AND TESTS: Liver function tests were okay. Bilirubin 0.4. Alkaline phosphatase 76. White count 8.3. IMPRESSION: Right upper quadrant pain. She has history of some gallbladder sludge. She has been worked up. She was scheduled to have cholecystectomy later in the week by Dr. Chirag Sharma. No emergent surgery necessary. She is supposed to go home tomorrow apparently to follow up for surgery later in the week. Continue medical management.
[2020-09-12] MEDS: PROTONIX 40 MG IV IV SCH (10:10)
[2020-09-12] MEDS: TORAdol 10 MG TABLET PO SCH ×2 (10:12→14:33)
[2020-09-12 11:53] VITALS: BP 174/84; PULSE 94
--- NOTE | 2020-09-12 15:26 | DS ---
DISCHARGE DIAGNOSIS: CHOLECYSTITIS. PROCEDURES PERFORMED: None. HISTORY: The patient is a 35 year-old female with history of chronic cholecystitis. She presented to the emergency department with acute right upper quadrant abdominal pain. Repeat lab work and imaging consistent with chronic cholecystitis. However, the patient did have persistent constant pain. She was admitted for observation. HOSPITAL COURSE: The patient was admitted, pain controlled and her pain dramatically resolved. On 09/11/2020, she was having minimal pain, hungry and wanted to be advanced on diet. She was advanced on diet. She is tolerating p.o., pain minimal, dramatically improved. She is scheduled for outpatient cholecystectomy. She wanted to proceed with outpatient cholecystectomy. Discharge orders were placed. However, she had a home going prescription was unable to be approved by insurance and ultimately she ended up staying until 09/12/2020 still doing very well on 09/12/2020 and tolerating p.o. and no pain, up and ambulating, tolerating regular diet. She was discharged in good condition. DISCHARGE INSTRUCTIONS: The patient is to follow up as previously scheduled for outpatient cholecystectomy.
== END 2020-09-12 15:30 | disposition home or self-care (01) ==
LOC: ED 21:04 → MED SURG 09-11 01:35
PROVIDERS: ADMIT Surgery; ATTEND Surgery
DX: K81.1 Chronic cholecystitis (principal); E10.9 Type 1 diabetes mellitus without complications; Z79.4 Long term (current) use of insulin; Z79.899 Other long term (current) drug therapy; Z20.828 Contact with and (suspected) exposure to other viral communicable diseases
CPT/HCPCS: 36000; 36415; 80053; 80076; 81001; 82947; 83036; 83690; 85025; 87086; 96374; 96375; 96376; 99284; U0003; G0378; J1170; J1817; J2270; J2405; A9270-GY

== ENCOUNTER 2020-09-27 20:23 | Emergency (ER) | payer OTHER ==
[2020-09-27] MEDS ORDERED: MORPHINE SULFATE 4 MG INJ IM ONE (20:39)
[2020-09-27] MEDS ORDERED: MORPHINE SULFATE 4 MG INJ ONE (20:47)
--- NOTE | 2020-09-27 20:51 | ERPHSYRPT ---
- History of Present Illness Time Seen by Provider: 09/27/20 20:26 Historian: patient Exam Limitations: no limitations Patient Subjective Stated Complaint: pt states, "I picked up my niece yesterday who weighs 25 lbs and my stomach has been hurting ever since". Triage Nursing Assessment: pt c/o RUQ pain, has gallbladder surgery 2 weeks ago. Pt lift her niece yesterday who is 25# and has had pain ever since. Abd soft with active bs x4 quad, tender to RUQ on palpation. Stephani sites healed. Physician History: 35 years old 2 weeks postop laparoscopic cholecystectomy presented in the ER with chief complaint of epigastric and right upper quadrant dull aching to sharp pain intermittently since yesterday after she picked up her niece who is almost 20 pounds. Patient reports pain aggravated with palpation and movement and better with being still. She has been taking Tylenol with no significant relief. Denies associated nausea vomiting or diarrhea. No fever or chills reported. Timing/Duration: yesterday, intermittent, gradual onset, worse Activities at Onset: rest Quality: sharpness Abdominal Pain Onset Location: RUQ, epigastric Pain Radiation: no radiation Severity of Pain-Max: moderate Severity of Pain-Current: moderate Modifying Factors: Worsens With: coughing, movement, palpation Associated Symptoms: denies symptoms Allergies/Adverse Reactions: No Known Drug Allergies Allergy (Verified 09/27/20 20:41) Home Medications: Medroxyprogesterone Acet [Depo-Provera] 150 mg IM Q90D 09/10/19 [History] Insulin Aspart (Niacinamide) [Fiasp 100 Unit/ml Flextouch] 14 units SQ AC 07/03/20 [History] Insulin Glargine,Hum.rec.anlog [Toujeo Solostar] 34 units SQ HS 07/04/20 [History] Hx Tetanus, Diphtheria Vaccination/Date Given: Yes Hx Influenza Vaccination/Date Given: No Hx Pneumococcal Vaccination/Date Given: No Immunizations Up to Date: Yes Travel Risk - International Travel Have you traveled outside of the country in past 3 weeks: No - Coronavirus Screening Are you exhibiting any of the following symptoms?: No - Vaccine Status Have you recieved a Covid-19 vaccination: No - Review of Systems Constitutional: No Symptoms Eyes: No Symptoms Ears, Nose, & Throat: No Symptoms Respiratory: No Symptoms Cardiac: No Symptoms Abdominal/Gastrointestinal: Abdominal Pain Genitourinary Symptoms: No Symptoms Musculoskeletal: No Symptoms Skin: No Symptoms Neurological: No Symptoms Psychological: No Symptoms Endocrine: No Symptoms Hematologic/Lymphatic: No Symptoms Immunological/Allergic: No Symptoms - Past Medical History Pertinent Past Medical History: Yes Neurological History: Peripheral Neuropathy ENT History: No Pertinent History Cardiac History: No Pertinent History Respiratory History: No Pertinent History Endocrine Medical History: Diabetes Type I Musculoskeletal History: Arthritis, Fibromyalgia GI Medical History: Gallbladder Disease, Pancreatitis History: No Pertinent History Psycho-Social History: Anxiety, Depression Female Reproductive Disorders: No Pertinent History Other Medical History: Was taken off of diabetic pump and put on sub q insulin coverage- [facility]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 - Past Surgical History Past Surgical History: Yes Neuro Surgical History: No Pertinent History Cardiac: No Pertinent History Respiratory: No Pertinent History Gastrointestinal: Cholecystectomy Genitourinary: No Pertinent History Musculoskeletal: No Pertinent History Female Surgical History: Dilation & Curettage, Section Other Surgical History: cs x2 - Social History Smoking Status: Current every day smoker How long have you smoked: 20 yrs Exposure to second hand smoke: No Alcohol Use: None Drug Use: none Patient Lives Alone: No Significant Family History: heart disease, diabetes - Female History Hx Now: No - Nursing Vital Signs Nursing Vital Signs: Initial Vital Signs Temperature 98.7 F 09/27/20 20:25 Pulse Rate 114 H 09/27/20 20:25 Respiratory Rate 16 09/27/20 20:25 Blood Pressure 165/103 09/27/20 20:25 O2 Sat by Pulse Oximetry 98 09/27/20 20:25 Pain Scale Pain Intensity 8 - Physical Exam General Appearance: no apparent distress, alert Eye Exam: PERRL/EOMI Ears, Nose, Throat Exam: normal ENT inspection, pharynx normal Neck Exam: normal inspection, supple, full range of motion Respiratory Exam: normal breath sounds, lungs clear Cardiovascular Exam: normal heart sounds, tachycardia Gastrointestinal/Abdomen Exam: soft, normal bowel sounds, tenderness (Minimal tenderness in epigastric and right upper quadrant. No guarding or rebound tenderness.) Back Exam: normal inspection, normal range of motion Extremity Exam: normal inspection, normal range of motion, pelvis stable Neurologic Exam: alert, oriented x 3, cooperative Skin Exam: normal color SpO2 Interpretation: normal SpO2: 98 O2 Delivery: Room Air Ordered Tests: Active Orders 24 hr Category Date Time Status AMYLASE Stat Lab 09/27/20 20:55 Completed CBC W DIFF Stat Lab 09/27/20 20:55 Completed CMP Stat Lab 09/27/20 20:55 Completed HCG,QUALITATIVE URINE Stat Lab 09/27/20 20:55 Completed LIPASE Stat Lab 09/27/20 20:55 Completed UA W/RFX UR CULTURE Stat Lab 09/27/20 20:55 Completed Medication Summary Discontinued Medications Generic Name Dose Route Start Last Admin Trade Name Freq PRN Reason Stop Dose Admin Morphine Sulfate 4 mg 09/27/20 20:39 09/27/20 20:48 Morphine Sulfate 4 Mg Inj IM 09/27/20 20:40 4 mg STAT ONE Administration Morphine Sulfate Confirm 09/27/20 20:47 Morphine Sulfate 4 Mg Inj Administered 09/27/20 20:48 Dose 4 mg .ROUTE .[employer] ONE Lab/Rad Data: Laboratory Result Diagrams 09/27/20 20:55 09/27/20 20:55 Laboratory Results 09/27/20 09/27/20 09/27/20 Range/Units 20:55 20:55 20:55 WBC 8.7 (4.0-10.5) K/mm3 RBC 4.40 (4.1-5.4) M/mm3 Hgb 13.2 (12.0-16.0) gm/dl Hct 40.4 (35-47) % MCV 91.8 (78-100) fl MCH 30.0 (26-32) pg MCHC 32.7 (32-36) g/dl RDW 13.7 (11.5-14.0) % Plt Count 435 (150-450) K/mm3 MPV 9.6 (7.5-11.0) fl Gran % 55.8 (36.0-66.0) % Eos # (Auto) 0.11 (0-0.5) Absolute Lymphs (auto) 3.27 (1.0-4.6) Absolute Monos (auto) 0.42 (0.0-1.3) Lymphocytes % 37.5 (24.0-44.0) % Monocytes % 4.8 (0.0-12.0) % Eosinophils % 1.3 (0.00-5.0) % Basophils % 0.6 (0.0-0.4) % Absolute Granulocytes 4.86 (1.4-6.9) Basophils # 0.05 (0-0.4) Sodium 136 L (137-145) mmol/L Potassium 4.7 (3.5-5.1) mmol/L Chloride 100 (98-107) mmol/L Carbon Dioxide 24 (22-30) mmol/L Anion Gap 16.9 H (5-15) MEQ/L BUN 10 (7-17) mg/dL Creatinine 0.64 (0.52-1.04) mg/dL Estimated GFR > 60.0 ML/MIN Glucose 166 H (74-106) mg/dL Calcium 10.1 (8.4-10.2) mg/dL Total Bilirubin 0.30 (0.2-1.3) mg/dL AST 30 (14-36) U/L ALT 15 (0-35) U/L Alkaline Phosphatase 92 (38-126) U/L Serum Total Protein 7.5 (6.3-8.2) g/dL Albumin 4.1 (3.5-5.0) g/dL Amylase 44 (30-110) U/L Lipase < 10 L (23-300) U/L Urine Color (YELLOW) Urine Appearance (CLEAR) Urine pH (5-6) Ur Specific [place] (1.005-1.025) Urine Protein (Negative) Urine Ketones (NEGATIVE) Urine Blood (0-5) Rodney/ul Urine Nitrite (NEGATIVE) Urine Bilirubin (NEGATIVE) Urine Urobilinogen (0-1) mg/dL Ur Leukocyte Esterase (NEGATIVE) Urine WBC (Auto) (0-5) /HPF Urine RBC (Auto) (0-2) /HPF U Hyaline Cast (Auto) (0-2) /LPF U Epithel Cells (Auto) (FEW) /HPF Urine Bacteria (Auto) (NEGATIVE) /HPF Urine Culture Reflexed (NO) Urine Glucose (NEGATIVE) mg/dL Urine HCG, Qual NEGATIVE (Negative) 09/27/20 Range/Units 20:55 WBC (4.0-10.5) K/mm3 RBC (4.1-5.4) M/mm3 Hgb (12.0-16.0) gm/dl Hct (35-47) % MCV (78-100) fl MCH (26-32) pg MCHC (32-36) g/dl RDW (11.5-14.0) % Plt Count (150-450) K/mm3 MPV (7.5-11.0) fl Gran % (36.0-66.0) % Eos # (Auto) (0-0.5) Absolute Lymphs (auto) (1.0-4.6) Absolute Monos (auto) (0.0-1.3) Lymphocytes % (24.0-44.0) % Monocytes % (0.0-12.0) % Eosinophils % (0.00-5.0) % Basophils % (0.0-0.4) % Absolute Granulocytes (1.4-6.9) Basophils # (0-0.4) Sodium (137-145) mmol/L Potassium (3.5-5.1) mmol/L Chloride (98-107) mmol/L Carbon Dioxide (22-30) mmol/L Anion Gap (5-15) MEQ/L BUN (7-17) mg/dL Creatinine (0.52-1.04) mg/dL Estimated GFR ML/MIN Glucose (74-106) mg/dL Calcium (8.4-10.2) mg/dL Total Bilirubin (0.2-1.3) mg/dL AST (14-36) U/L ALT (0-35) U/L Alkaline Phosphatase (38-126) U/L Serum Total Protein (6.3-8.2) g/dL Albumin (3.5-5.0) g/dL Amylase (30-110) U/L Lipase (23-300) U/L Urine Color YELLOW (YELLOW) Urine Appearance CLEAR (CLEAR) Urine pH 6.0 (5-6) Ur Specific [place] 1.011 (1.005-1.025) Urine Protein >=500 (Negative) Urine Ketones SMALL (NEGATIVE) Urine Blood NEGATIVE (0-5) Rodney/ul Urine Nitrite NEGATIVE (NEGATIVE) Urine Bilirubin NEGATIVE (NEGATIVE) Urine Urobilinogen NEGATIVE (0-1) mg/dL Ur Leukocyte Esterase NEGATIVE (NEGATIVE) Urine WBC (Auto) NONE (0-5) /HPF Urine RBC (Auto) NONE (0-2) /HPF U Hyaline Cast (Auto) 0-2 (0-2) /LPF U Epithel Cells (Auto) RARE (FEW) /HPF Urine Bacteria (Auto) RARE (NEGATIVE) /HPF Urine Culture Reflexed NO (NO) Urine Glucose >=500 (NEGATIVE) mg/dL Urine HCG, Qual (Negative) - Progress Progress: improved, re-examined Progress Note: 09/27/20 22:26 35 years old is evaluated for upper abdominal pain after lifting baby almost 20 pounds yesterday. She does not have any peritoneal signs. Minimal tenderness. Given pain medication, on reevaluation feeling better. Lab work grossly unremarkable. Do not think he needs any imaging. Recommended taking Tylenol ibuprofen as needed and outpatient follow-up with primary care and general surgery as scheduled. Discussed signs symptoms of worsening needing return to ER which she seemed understanding. Stable for discharge. Counseled pt/family regarding: lab results, diagnosis, need for follow-up - Departure Departure Disposition: Home Clinical Impression: Postoperative abdominal pain Condition: Stable Critical Care Time: No Referrals: ALAN MORAN [Primary Care Provider] - (1-2 days for reevaluation) Instructions: Acute Abdomen (Belly Pain), Adult (DC) Additional Instructions: Take Tylenol/ibuprofen as needed for pain. Follow-up with your primary care and general surgery for reevaluation. Avoid lifting heavy objects. Return to ER for worsening pain or if develop vomiting fever chills etc.
[2020-09-27 21:44] LABS: Appearance CLEAR (CLEAR); Bacteria RARE /HPF (NEGATIVE); Bilirubin NEGATIVE (NEGATIVE); Blood NEGATIVE Ery/ul (0-5); Epithelial Cells RARE /HPF (FEW); Glucose >=500 mg/dL (NEGATIVE); Hyaline Casts 0-2 /LPF (0-2); Ketones SMALL (NEGATIVE); Leukocyte Esterase NEGATIVE (NEGATIVE); Nitrite NEGATIVE (NEGATIVE); Protein,Urine Dip >=500 (Negative); Specific Gravity 1.011 (1.005-1.025); Urobilinogen NEGATIVE mg/dL (0-1)
[2020-09-27 21:48] LABS: Absolute Neutrophil Ct (ANC) 4.86 (1.4-6.9); BASOPHIL % 0.6 % (0.0-0.4); Basophil (Absolute #) 0.05 (0-0.4); Eosinophil % 1.3 % (0.00-5.0); Eosinophil (Absolute #) 0.11 (0-0.5); Hematocrit 40.4 % (35-47); Hemoglobin 13.2 gm/dl (12.0-16.0); Lymphocyte (Absolute #) 3.27 (1.0-4.6); Lymphocytes % 37.5 % (24.0-44.0); Mean Cell Volume 91.8 fl (78-100); Mean Corpuscular Hgb Concent. 32.7 g/dl (32-36); Mean Platelet Volume 9.6 fl (7.5-11.0); Monocyte (Absolute #) 0.42 (0.0-1.3); Monocytes % 4.8 % (0.0-12.0); Neutrophil % 55.8 % (36.0-66.0); Platelet Count 435 K/mm3 (150-450); Red Cell Distribution Width 13.7 % (11.5-14.0); White Blood Count 8.7 K/mm3 (4.0-10.5)
[2020-09-27 22:03] LABS: ALBUMIN 4.1 g/dL (3.5-5.0); ALKALINE PHOSPHATASE 92 U/L (38-126); AMYLASE 44 U/L (30-110); ANION GAP 16.9 MEQ/L (5-15); BLOOD UREA NITROGEN 10 mg/dL (7-17); CHLORIDE 100 mmol/L (98-107); Calcium 10.1 mg/dL (8.4-10.2); Carbon Dioxide 24 mmol/L (22-30); Creatinine 1 0.64 mg/dL (0.52-1.04); EST GLOMERULAR FILTRATION RATE > 60.0 ML/MIN; Glucose 166 mg/dL (74-106); Potassium 4.7 mmol/L (3.5-5.1); SGOT/AST 30 U/L (14-36); SGPT/ALT 15 U/L (0-35); SODIUM 136 mmol/L (137-145); Total Protein 7.5 g/dL (6.3-8.2)
[2020-09-27 22:04] LABS: LIPASE < 10 U/L (23-300)
[2020-09-27 22:26] VITALS: O2SAT 98
[2020-09-27 22:36] VITALS: BP 159/93; PULSE 105
== END 2020-09-27 22:36 | disposition home or self-care (01) ==
LOC: ED 20:23
DX: R10.9 Unspecified abdominal pain (principal); Z98.890 Other specified postprocedural states; X50.0XXA Overexertion from strenuous movement or load, initial encounter
CPT/HCPCS: 36415; 80053; 81001; 82150; 83690; 84703; 85025; 96372; 99283; J2270

== ENCOUNTER 2020-09-29 12:06 | Emergency (ER) | payer OTHER ==
[2020-09-29] MEDS ORDERED: TORAdol 30 mg Injection IV ONE (12:49)
[2020-09-29] MEDS ORDERED: Zofran 4 MG/2 ML VIAL IV ONE (12:49)
[2020-09-29] MEDS ORDERED: Sodium Chloride 0.9% 1000 ML 1,000 ML IV STA (12:49)
--- NOTE | 2020-09-29 12:49 | ERPHSYRPT ---
- History of Present Illness Time Seen by Provider: 09/29/20 12:35 Historian: patient Exam Limitations: no limitations Patient Subjective Stated Complaint: Pt states "I had my galbladder out two weeks ago and I was not even thinking and I picked up my niece and ever since I have been a little dizzy and had belly pain. I am nauseated but not vomiting.". Dr. Ciro Sharma did surgery Triage Nursing Assessment: Pt presented alert and oriented X 3, skin pwd pt ambulates with an upright steady gait able to speak in clear full sentences pt in no apparent respiratory distres.s Physician History: Patient is a 35-year-old white female who had her gallbladder removed over 2 weeks ago and then lifted a niece which weighs over 25 pounds on Thursday and has had pain in the epigastric area ever since. She was seen 2 days ago in the ER with the pain. It was felt at that time by the examining physician that no CT was required she was released but has continued to have pain. Timing/Duration: day(s) (3), worse Activities at Onset: other (Lifting knees) Quality: sharpness, stabbing Abdominal Pain Onset Location: epigastric Pain Radiation: no radiation Severity of Pain-Max: severe Severity of Pain-Current: moderate Previous symptoms: no prior history Allergies/Adverse Reactions: No Known Drug Allergies Allergy (Verified 09/27/20 20:41) Home Medications: Medroxyprogesterone Acet [Depo-Provera] 150 mg IM Q90D 09/10/19 [History] Insulin Aspart (Niacinamide) [Fiasp 100 Unit/ml Flextouch] 14 units SQ AC 07/03/20 [History] Insulin Glargine,Hum.rec.anlog [Toujeo Solostar] 34 units SQ HS 07/04/20 [History] Hx Tetanus, Diphtheria Vaccination/Date Given: Yes Hx Influenza Vaccination/Date Given: No Hx Pneumococcal Vaccination/Date Given: No Immunizations Up to Date: Yes Travel Risk - International Travel Have you traveled outside of the country in past 3 weeks: No - Coronavirus Screening Are you exhibiting any of the following symptoms?: No Close contact with a COVID-19 positive Pt in past 14-21 Days: No - Vaccine Status Have you recieved a Covid-19 vaccination: No - Review of Systems Constitutional: No Fever, No Chills Eyes: No Symptoms Ears, Nose, & Throat: No Symptoms Respiratory: No Cough, No Dyspnea Cardiac: No Chest Pain, No Edema, No Syncope Abdominal/Gastrointestinal: Abdominal Pain, No Nausea, No Vomiting, No Diarrhea Genitourinary Symptoms: No Dysuria Musculoskeletal: No Back Pain, No Neck Pain Skin: No Rash Neurological: No Dizziness, No Focal Weakness, No Sensory Changes Psychological: No Symptoms Endocrine: No Symptoms All Other Systems: Reviewed and Negative - Past Medical History Pertinent Past Medical History: Yes Neurological History: Peripheral Neuropathy ENT History: No Pertinent History Cardiac History: No Pertinent History Respiratory History: No Pertinent History Endocrine Medical History: Diabetes Type I Musculoskeletal History: Arthritis, Fibromyalgia GI Medical History: Gallbladder Disease, Pancreatitis History: No Pertinent History Psycho-Social History: Anxiety, Depression Female Reproductive Disorders: No Pertinent History Other Medical History: Was taken off of diabetic pump and put on sub q insulin coverage- 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 - Past Surgical History Past Surgical History: Yes Neuro Surgical History: No Pertinent History Cardiac: No Pertinent History Respiratory: No Pertinent History Gastrointestinal: Cholecystectomy Genitourinary: No Pertinent History Musculoskeletal: No Pertinent History Female Surgical History: Dilation & Curettage, Section Other Surgical History: cs x2. hayden - Social History Smoking Status: Current every day smoker How long have you smoked: years Exposure to second hand smoke: Yes Alcohol Use: None Drug Use: none Patient Lives Alone: No Significant Family History: heart disease, diabetes - Female History Hx Last Menstrual Period: depo Hx Now: No - Nursing Vital Signs Nursing Vital Signs: Initial Vital Signs Temperature 98.0 F 09/29/20 12:15 Pulse Rate 120 H 09/29/20 12:15 Respiratory Rate 20 09/29/20 12:15 Blood Pressure 151/96 09/29/20 12:15 O2 Sat by Pulse Oximetry 98 09/29/20 12:15 Pain Scale Pain Intensity 8 - Physical Exam General Appearance: no apparent distress, alert Eye Exam: PERRL/EOMI, eyes nml inspection Ears, Nose, Throat Exam: normal ENT inspection, pharynx normal, moist mucous membranes Neck Exam: normal inspection, non-tender, supple, full range of motion Respiratory Exam: normal breath sounds, lungs clear, No respiratory distress Cardiovascular Exam: regular rate/rhythm, normal heart sounds Gastrointestinal/Abdomen Exam: soft, tenderness (Tenderness in the epigastrium), No mass Back Exam: normal inspection, normal range of motion, No CVA tenderness, No vertebral tenderness Extremity Exam: normal inspection, normal range of motion, pelvis stable Neurologic Exam: alert, oriented x 3, cooperative, normal mood/affect, nml cerebellar function, sensation nml, No motor deficits Skin Exam: normal color, warm, dry SpO2 Interpretation: normal SpO2: 98 O2 Delivery: Room Air - Course Nursing assessment & vital signs reviewed: Yes - CT Exams Abdomen/Pelvis CT Interpretation: Tele-radiologist Report Ordered Tests: Active Orders 24 hr Category Date Time Status IV Insertion STAT Care 09/29/20 12:49 Active ABDOMEN AND PELVIS W CONTRAST [CT] Stat Exams 09/29/20 12:50 Taken AMYLASE Stat Lab 09/29/20 13:05 Completed CBC W DIFF Stat Lab 09/29/20 13:05 Completed CMP Stat Lab 09/29/20 13:05 Completed LIPASE Stat Lab 09/29/20 13:05 Completed Lactic Acid Stat Lab 09/29/20 12:49 Completed UA W/RFX UR CULTURE Stat Lab 09/29/20 14:00 Completed Medication Summary Discontinued Medications Generic Name Dose Route Start Last Admin Trade Name Freq PRN Reason Stop Dose Admin Hydromorphone HCl 1 mg 09/29/20 14:26 09/29/20 14:44 Hydromorphone 1 Mg/Ml Injection IV 09/29/20 14:27 1 mg STAT ONE Administration Hydromorphone HCl Confirm 09/29/20 14:43 Hydromorphone 1 Mg/Ml Injection Administered 09/29/20 14:44 Dose 1 mg .ROUTE .STK-MED ONE Sodium Chloride 1,000 mls @ 999 mls/hr 09/29/20 12:49 09/29/20 15:23 Sodium Chloride 0.9% 1000 Ml IV 09/29/20 13:49 Infused .Q1H1M STA Infusion Sodium Chloride Confirm 09/29/20 14:05 Sodium Chloride 0.9% 1000 Ml Administered 09/29/20 14:06 Dose 1,000 mls @ ud .ROUTE .STK-MED ONE Ketorolac Tromethamine 30 mg 09/29/20 12:49 09/29/20 14:08 Toradol 30 Mg Injection IV 09/29/20 12:50 30 mg STAT ONE Administration Ketorolac Tromethamine Confirm 09/29/20 14:05 Toradol 30 Mg Injection Administered 09/29/20 14:06 Dose 30 mg .ROUTE .STK-MED ONE Ondansetron HCl 4 mg 09/29/20 12:49 09/29/20 14:08 Zofran 4 Mg/2 Ml Vial IV 09/29/20 12:50 4 mg STAT ONE Administration Ondansetron HCl Confirm 09/29/20 14:05 Zofran 4 Mg/2 Ml Vial Administered 09/29/20 14:06 Dose 4 mg .ROUTE .STK-MED ONE Lab/Rad Data: Laboratory Result Diagrams 09/29/20 13:05 09/29/20 13:05 Laboratory Results 09/29/20 09/29/20 09/29/20 Range/Units 14:00 13:05 13:05 WBC 9.3 (4.0-10.5) K/mm3 RBC 4.84 (4.1-5.4) M/mm3 Hgb 14.4 (12.0-16.0) gm/dl Hct 43.5 (35-47) % MCV 89.9 (78-100) fl MCH 29.8 (26-32) pg MCHC 33.1 (32-36) g/dl RDW 13.9 (11.5-14.0) % Plt Count 464 H (150-450) K/mm3 MPV 9.5 (7.5-11.0) fl Gran % 65.1 (36.0-66.0) % Eos # (Auto) 0.12 (0-0.5) Absolute Lymphs (auto) 2.66 (1.0-4.6) Absolute Monos (auto) 0.43 (0.0-1.3) Lymphocytes % 28.6 (24.0-44.0) % Monocytes % 4.6 (0.0-12.0) % Eosinophils % 1.3 (0.00-5.0) % Basophils % 0.4 (0.0-0.4) % Absolute Granulocytes 6.06 (1.4-6.9) Basophils # 0.04 (0-0.4) Sodium 135 L (137-145) mmol/L Potassium 4.4 (3.5-5.1) mmol/L Chloride 99 (98-107) mmol/L Carbon Dioxide 23 (22-30) mmol/L Anion Gap 17.7 H (5-15) MEQ/L BUN 13 (7-17) mg/dL Creatinine 0.59 (0.52-1.04) mg/dL Estimated GFR > 60.0 ML/MIN Glucose 251 H (74-106) mg/dL Lactic Acid (0.4-2.0) Calcium 10.7 H (8.4-10.2) mg/dL Total Bilirubin 0.60 (0.2-1.3) mg/dL AST 24 (14-36) U/L ALT 12 (0-35) U/L Alkaline Phosphatase 115 (38-126) U/L Serum Total Protein 7.9 (6.3-8.2) g/dL Albumin 4.4 (3.5-5.0) g/dL Amylase 44 (30-110) U/L Lipase < 10 L (23-300) U/L Urine Color YELLOW (YELLOW) Urine Appearance SLIGHTLY CLOUDY (CLEAR) Urine pH 5.0 (5-6) Ur Specific [place] 1.023 (1.005-1.025) Urine Protein >=500 (Negative) Urine Ketones SMALL (NEGATIVE) Urine Blood SMALL (0-5) Rodney/ul Urine Nitrite NEGATIVE (NEGATIVE) Urine Bilirubin NEGATIVE (NEGATIVE) Urine Urobilinogen NEGATIVE (0-1) mg/dL Ur Leukocyte Esterase NEGATIVE (NEGATIVE) Urine WBC (Auto) NONE (0-5) /HPF Urine RBC (Auto) 0-2 (0-2) /HPF U Hyaline Cast (Auto) 0-2 (0-2) /LPF U Epithel Cells (Auto) FEW (FEW) /HPF Urine Bacteria (Auto) RARE (NEGATIVE) /HPF Urine Mucus (Auto) SLIGHT (NEGATIVE) /HPF Urine Culture Reflexed NO (NO) Urine Glucose >=500 (NEGATIVE) mg/dL 09/29/20 Range/Units 12:49 WBC (4.0-10.5) K/mm3 RBC (4.1-5.4) M/mm3 Hgb (12.0-16.0) gm/dl Hct (35-47) % MCV (78-100) fl MCH (26-32) pg MCHC (32-36) g/dl RDW (11.5-14.0) % Plt Count (150-450) K/mm3 MPV (7.5-11.0) fl Gran % (36.0-66.0) % Eos # (Auto) (0-0.5) Absolute Lymphs (auto) (1.0-4.6) Absolute Monos (auto) (0.0-1.3) Lymphocytes % (24.0-44.0) % Monocytes % (0.0-12.0) % Eosinophils % (0.00-5.0) % Basophils % (0.0-0.4) % Absolute Granulocytes (1.4-6.9) Basophils # (0-0.4) Sodium (137-145) mmol/L Potassium (3.5-5.1) mmol/L Chloride (98-107) mmol/L Carbon Dioxide (22-30) mmol/L Anion Gap (5-15) MEQ/L BUN (7-17) mg/dL Creatinine (0.52-1.04) mg/dL Estimated GFR ML/MIN Glucose (74-106) mg/dL Lactic Acid 0.9 (0.4-2.0) Calcium (8.4-10.2) mg/dL Total Bilirubin (0.2-1.3) mg/dL AST (14-36) U/L ALT (0-35) U/L Alkaline Phosphatase (38-126) U/L Serum Total Protein (6.3-8.2) g/dL Albumin (3.5-5.0) g/dL Amylase (30-110) U/L Lipase (23-300) U/L Urine Color (YELLOW) Urine Appearance (CLEAR) Urine pH (5-6) Ur Specific [place] (1.005-1.025) Urine Protein (Negative) Urine Ketones (NEGATIVE) Urine Blood (0-5) Rodney/ul Urine Nitrite (NEGATIVE) Urine Bilirubin (NEGATIVE) Urine Urobilinogen (0-1) mg/dL Ur Leukocyte Esterase (NEGATIVE) Urine WBC (Auto) (0-5) /HPF Urine RBC (Auto) (0-2) /HPF U Hyaline Cast (Auto) (0-2) /LPF U Epithel Cells (Auto) (FEW) /HPF Urine Bacteria (Auto) (NEGATIVE) /HPF Urine Mucus (Auto) (NEGATIVE) /HPF Urine Culture Reflexed (NO) Urine Glucose (NEGATIVE) mg/dL - Progress Progress: unchanged - Departure Departure Disposition: Home Clinical Impression: Muscle strain Condition: Stable Critical Care Time: No Referrals: ALAN MORAN [Primary Care Provider] - Instructions: Muscle Strain (DC)
[2020-09-29 13:50] LABS: Absolute Neutrophil Ct (ANC) 6.06 (1.4-6.9); BASOPHIL % 0.4 % (0.0-0.4); Basophil (Absolute #) 0.04 (0-0.4); Eosinophil % 1.3 % (0.00-5.0); Eosinophil (Absolute #) 0.12 (0-0.5); Hematocrit 43.5 % (35-47); Hemoglobin 14.4 gm/dl (12.0-16.0); Lymphocyte (Absolute #) 2.66 (1.0-4.6); Lymphocytes % 28.6 % (24.0-44.0); Mean Cell Volume 89.9 fl (78-100); Mean Corpuscular Hemoglobin 29.8 pg (26-32); Mean Corpuscular Hgb Concent. 33.1 g/dl (32-36); Mean Platelet Volume 9.5 fl (7.5-11.0); Monocyte (Absolute #) 0.43 (0.0-1.3); Monocytes % 4.6 % (0.0-12.0); Neutrophil % 65.1 % (36.0-66.0); Platelet Count 464 K/mm3 (150-450); Red Blood Count 4.84 M/mm3 (4.1-5.4); Red Cell Distribution Width 13.9 % (11.5-14.0); White Blood Count 9.3 K/mm3 (4.0-10.5)
[2020-09-29 13:59] LABS: ALBUMIN 4.4 g/dL (3.5-5.0); ALKALINE PHOSPHATASE 115 U/L (38-126); AMYLASE 44 U/L (30-110); ANION GAP 17.7 MEQ/L (5-15); BLOOD UREA NITROGEN 13 mg/dL (7-17); CHLORIDE 99 mmol/L (98-107); Calcium 10.7 mg/dL (8.4-10.2); Carbon Dioxide 23 mmol/L (22-30); Creatinine 1 0.59 mg/dL (0.52-1.04); EST GLOMERULAR FILTRATION RATE > 60.0 ML/MIN; Glucose 251 mg/dL (74-106); Potassium 4.4 mmol/L (3.5-5.1); SGOT/AST 24 U/L (14-36); SGPT/ALT 12 U/L (0-35); SODIUM 135 mmol/L (137-145); Total Protein 7.9 g/dL (6.3-8.2)
[2020-09-29 14:03] LABS: LIPASE < 10 U/L (23-300)
[2020-09-29] MEDS ORDERED: Zofran 4 MG/2 ML VIAL ONE (14:05)
[2020-09-29] MEDS ORDERED: Sodium Chloride 0.9% 1000 ML 1,000 ML ONE (14:05)
[2020-09-29] MEDS ORDERED: TORAdol 30 mg Injection ONE (14:05)
[2020-09-29] MEDS ORDERED: Hydromorphone 1 mg/ml Injection IV ONE (14:26)
[2020-09-29] MEDS ORDERED: Hydromorphone 1 mg/ml Injection ONE (14:43)
[2020-09-29 14:51] LABS: Appearance SLIGHTLY CLOUDY (CLEAR); Bacteria RARE /HPF (NEGATIVE); Bilirubin NEGATIVE (NEGATIVE); Blood SMALL Ery/ul (0-5); Epithelial Cells FEW /HPF (FEW); Glucose >=500 mg/dL (NEGATIVE); Hyaline Casts 0-2 /LPF (0-2); Ketones SMALL (NEGATIVE); Leukocyte Esterase NEGATIVE (NEGATIVE); Mucus SLIGHT /HPF (NEGATIVE); Nitrite NEGATIVE (NEGATIVE); Protein,Urine Dip >=500 (Negative); RBC 0-2 /HPF (0-2); Specific Gravity 1.023 (1.005-1.025); Urobilinogen NEGATIVE mg/dL (0-1)
[2020-09-29 17:27] VITALS: BP 151/101; PULSE 105; O2SAT 97
--- NOTE | 2020-09-29 19:55 | XRAY ---
Indication: Abdomen pain, nausea, and vomiting. Multiple contiguous axial images obtained through the abdomen and pelvis using 80 cc Isovue 370 contrast. Comparison: August 07, 2020 Lung bases again demonstrates minimal fibrosis/scarring. Heart not enlarged. Noncontrasted stomach and bowel loops remaining nonobstructed. Appendix normal. Interval cholecystectomy. No free fluid/air. Stable tiny hepatic hemangioma and right renal cysts. Remaining liver, pancreas, spleen, adrenal glands, kidneys, ureters, bladder, uterus, and aorta appear normal in CT appearance and attenuation. No pathologic retroperitoneal lymphadenopathy. Osseous structures intact. Impression: 1. Status post cholecystectomy. No complications. 2. Stable tiny hepatic hemangioma and tiny right renal cysts. Comment: Preliminary interpretation made by [facility]. No critical discrepancy.
== END 2020-09-29 17:27 | disposition critical access hospital (66) ==
LOC: ED 12:06
DX: T14.8XXA Other injury of unspecified body region, initial encounter (principal); X50.0XXA Overexertion from strenuous movement or load, initial encounter; X50.9XXA Other and unspecified overexertion or strenuous movements or postures, initial encounter; Y93.89 Activity, other specified; Y92.89 Other specified places as the place of occurrence of the external cause; R10.9 Unspecified abdominal pain; Z98.890 Other specified postprocedural states; R42 Dizziness and giddiness; F41.9 Anxiety disorder, unspecified; E10.8 Type 1 diabetes mellitus with unspecified complications
CPT/HCPCS: 36000; 36415; 74177; 80053; 81001; 82150; 83605; 83690; 85025; 96360; 96374; 96375; 99284; J1170; J1885; J2405

== ENCOUNTER 2020-10-04 13:45 | Observation (INO) | payer OTHER ==
--- NOTE | 2020-10-04 13:53 | ERPHSYRPT ---
- History of Present Illness Time Seen by Provider: 10/04/20 13:53 Source: patient, family Exam Limitations: no limitations Physician History: This is a 35-year-old insulin-dependent diabetic female who also has a history of anxiety, depression, arthritis and fibromyalgia who presents with dizziness and orthostatic hypotension. Her blood sugar read 320 on her reading unit. She feels weak and tired and thirsty. She is relatively noncompliant. Her primary care physician is Dr. Wilcox. She is nauseated. She has no chest pain. She denies shortness of breath. She has no abdominal pain. She has no dysuria or hematuria. Timing/Duration: today Severity: moderate Deficits: no difficulties Baseline/Normal Cognition: alert oriented x 3 Current Cognition: alert oriented x 3 Baseline Gait: walks w/o assistance Allergies/Adverse Reactions: No Known Drug Allergies Allergy (Verified 10/04/20 14:07) Home Medications: Medroxyprogesterone Acet [Depo-Provera] 150 mg IM Q90D 09/10/19 [History] Insulin Aspart (Niacinamide) [Fiasp 100 Unit/ml Flextouch] 14 units SQ AC 07/03/20 [History] Insulin Glargine,Hum.rec.anlog [Toujeo Solostar] 34 units SQ HS 07/04/20 [History] Hx Tetanus, Diphtheria Vaccination/Date Given: Yes Hx Influenza Vaccination/Date Given: No Hx Pneumococcal Vaccination/Date Given: No Travel Risk - International Travel Have you traveled outside of the country in past 3 weeks: No - Coronavirus Screening Are you exhibiting any of the following symptoms?: No - Vaccine Status Have you recieved a Covid-19 vaccination: No - Review of Systems Constitutional: Weakness Eyes: No Symptoms Ears, Nose, & Throat: No Symptoms Respiratory: No Symptoms Cardiac: No Symptoms Abdominal/Gastrointestinal: Vomiting Genitourinary Symptoms: No Symptoms Musculoskeletal: No Symptoms Skin: No Symptoms Neurological: Dizziness Endocrine: No Symptoms Hematologic/Lymphatic: No Symptoms Immunological/Allergic: No Symptoms All Other Systems: Reviewed and Negative - Past Medical History Pertinent Past Medical History: Yes Neurological History: Peripheral Neuropathy ENT History: No Pertinent History Cardiac History: No Pertinent History Respiratory History: No Pertinent History Endocrine Medical History: Diabetes Type I Musculoskeletal History: Arthritis, Fibromyalgia GI Medical History: Gallbladder Disease, Pancreatitis History: No Pertinent History Psycho-Social History: Anxiety, Depression Female Reproductive Disorders: No Pertinent History Other Medical History: Was taken off of diabetic pump and put on sub q insulin coverage- 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 - Past Surgical History Past Surgical History: Yes Neuro Surgical History: No Pertinent History Cardiac: No Pertinent History Respiratory: No Pertinent History Gastrointestinal: Cholecystectomy Genitourinary: No Pertinent History Musculoskeletal: No Pertinent History Female Surgical History: Dilation & Curettage, Section Other Surgical History: cs x2. hayden - Social History Smoking Status: Current every day smoker How long have you smoked: years Exposure to second hand smoke: Yes Alcohol Use: None Drug Use: none Patient Lives Alone: No Significant Family History: heart disease, diabetes - Nursing Vital Signs Nursing Vital Signs: Initial Vital Signs Temperature 99.5 F 10/04/20 13:58 Pulse Rate 115 H 10/04/20 13:58 Respiratory Rate 16 10/04/20 13:58 Blood Pressure 115/64 10/04/20 13:58 O2 Sat by Pulse Oximetry 99 10/04/20 13:58 Pain Scale Pain Intensity 9 - Joann Coma Scale Best Eye Response (Joann): (4) open spontaneously Best Verbal Response ([place]): (5) oriented Best Motor Response ([place]): (6) obeys commands [place] Total: 15 - Physical Exam General Appearance: mild distress, alert, anxiety, lethargy Eye Exam: bilateral eye: normal inspection, PERRL, EOMI Ears, Nose, Throat Exam: pharynx normal, dry mucous membranes Neck Exam: normal inspection, non-tender, supple, full range of motion Respiratory: normal breath sounds, lungs clear, airway intact, No chest tenderness, No respiratory distress Cardiovascular: tachycardia Gastrointestinal: soft, normal bowel sounds, No tenderness Pelvic Exam: not done Rectal Exam: not done Back Exam: normal inspection, normal range of motion, No CVA tenderness, No vertebral tenderness Extremity Exam: normal inspection Mental Status: alert, oriented x 3, cooperative alto singer Exam: normal hearing, normal speech, PERRL Coordination/Gait: normal finger to nose, normal gait, normal cerebellar function Motor/Sensory: no motor deficit, no sensory deficit, no pronator drift Skin Exam: normal color, warm, dry SpO2 Interpretation: normal O2 Delivery: Room Air - Course Nursing assessment & vital signs reviewed: Yes Ordered Tests: Active Orders 24 hr Category Date Time Status Clean Catch Urine Specimen STAT Care 10/04/20 15:31 Active EKG-ER Only STAT Care 10/04/20 15:31 Active IV Insertion STAT Care 10/04/20 15:31 Active HEAD WITHOUT CONTRAST [CT] Stat Exams 10/04/20 15:32 Completed CBC W DIFF Stat Lab 10/04/20 16:10 Completed CMP Stat Lab 10/04/20 16:10 Completed Lactic Acid Stat Lab 10/04/20 16:10 Completed MAGNESIUM Stat Lab 10/04/20 16:10 Completed UA W/RFX UR CULTURE Stat Lab 10/04/20 17:13 Ordered Urine Triage Profile Stat Lab 10/04/20 17:13 Ordered Transfer Order Routine Transfer 10/04/20 Ordered Medication Summary Generic Name Dose Route Start Last Admin Trade Name Fresamira PRN Reason Stop Dose Admin Sodium Chloride 1,000 mls @ 100 mls/hr 10/04/20 15:45 10/04/20 15:58 Sodium Chloride 0.9% 1000 Ml IV 11/03/20 15:44 100 mls/hr .Q10H ELOY Administration Sodium Chloride 1,000 mls @ 999 mls/hr 10/04/20 17:01 10/04/20 17:22 Sodium Chloride 0.9% 1000 Ml IV 10/04/20 18:01 999 mls/hr .Q1H1M STA Administration Discontinued Medications Generic Name Dose Route Start Last Admin Trade Name Chaim PRN Reason Stop Dose Admin Hydromorphone HCl 1 mg 10/04/20 17:02 10/04/20 17:16 Hydromorphone 1 Mg/Ml Injection IV 10/04/20 17:03 1 mg STAT ONE Administration Hydromorphone HCl Confirm 10/04/20 17:10 Hydromorphone 1 Mg/Ml Injection Administered 10/04/20 17:11 Dose 1 mg .ROUTE .STK-MED ONE Insulin Human Regular 15 unit 10/04/20 17:03 10/04/20 17:23 Humulin R IV 10/04/20 17:04 15 unit STAT ONE Administration Insulin Human Regular Confirm 10/04/20 17:10 Humulin R Administered 10/04/20 17:11 Dose 15 unit .ROUTE .STK-MED ONE Ondansetron HCl 4 mg 10/04/20 15:31 10/04/20 15:58 Zofran 4 Mg/2 Ml Vial IV 10/04/20 15:32 4 mg STAT ONE Administration Ondansetron HCl Confirm 10/04/20 15:53 Zofran 4 Mg/2 Ml Vial Administered 10/04/20 15:54 Dose 4 mg .ROUTE .STK-MED ONE Ondansetron HCl 4 mg 10/04/20 17:02 10/04/20 17:12 Zofran 4 Mg/2 Ml Vial IV 10/04/20 17:03 Not Given STAT ONE Lab/Rad Data: Laboratory Result Diagrams 10/04/20 16:10 10/04/20 16:10 Laboratory Results 10/04/20 10/04/20 10/04/20 Range/Units 16:10 16:10 16:10 WBC 11.9 H (4.0-10.5) K/mm3 RBC 4.34 (4.1-5.4) M/mm3 Hgb 12.8 (12.0-16.0) gm/dl Hct 39.7 (35-47) % MCV 91.5 (78-100) fl MCH 29.5 (26-32) pg MCHC 32.2 (32-36) g/dl RDW 13.8 (11.5-14.0) % Plt Count 428 (150-450) K/mm3 MPV 10.2 (7.5-11.0) fl Gran % 73.9 H (36.0-66.0) % Eos # (Auto) 0.03 (0-0.5) Absolute Lymphs (auto) 2.37 (1.0-4.6) Absolute Monos (auto) 0.65 (0.0-1.3) Lymphocytes % 19.9 L (24.0-44.0) % Monocytes % 5.4 (0.0-12.0) % Eosinophils % 0.3 (0.00-5.0) % Basophils % 0.5 (0.0-0.4) % Absolute Granulocytes 8.82 H (1.4-6.9) Basophils # 0.06 (0-0.4) Sodium 132 L (137-145) mmol/L Potassium 4.5 (3.5-5.1) mmol/L Chloride 97 L (98-107) mmol/L Carbon Dioxide 15 L* (22-30) mmol/L Anion Gap 22.9 H (5-15) MEQ/L BUN 13 (7-17) mg/dL Creatinine 0.83 (0.52-1.04) mg/dL Estimated GFR > 60.0 ML/MIN Glucose 451 H (74-106) mg/dL Lactic Acid 1.5 (0.4-2.0) Calcium 9.5 (8.4-10.2) mg/dL Magnesium 1.7 (1.6-2.3) mg/dL Total Bilirubin 0.80 (0.2-1.3) mg/dL AST 19 (14-36) U/L ALT 9 (0-35) U/L Alkaline Phosphatase 95 (38-126) U/L Serum Total Protein 6.5 (6.3-8.2) g/dL Albumin 3.9 (3.5-5.0) g/dL - Progress Progress: improved, pain not gone completely, re-examined Progress Note: 10/04/20 17:25 CAT scan of the head without contrast shows no acute intracranial abnormality. Medical decision making: This patient presents with dizziness. She is also had nausea and vomiting. She has mild tachycardia and dry mouth. She does ache all over. She denies chest pain and she denies shortness of breath. We opted to discontinue the order for an EKG. Patient's dizziness is most likely due to her dehydration and DKA diagnosis. I spoke with Dr. Wilcox, the primary position for this patient. I reviewed the patient history, condition, laboratory results as well as results of the CAT scan of the head. He agrees to place the patient in observation. Discussed with : Tra Counseled pt/family regarding: lab results, diagnosis, need for follow-up, rad results - Departure Departure Disposition: Observation Clinical Impression: Dehydration, DKA (diabetic ketoacidosis) Condition: Stable Critical Care Time: Yes Critical Care Time(excluding separately billable procedures): Critical 30-74 mins Referrals: ALAN WILCOX [Primary Care Provider] -
[2020-10-04] MEDS ORDERED: Zofran 4 MG/2 ML VIAL IV ONE ×2 (15:31→17:02)
[2020-10-04] MEDS ORDERED: Sodium Chloride 0.9% 1000 ML 1,000 ML IV SCH (15:45)
[2020-10-04] MEDS ORDERED: Zofran 4 MG/2 ML VIAL ONE ×2 (15:53→23:19)
[2020-10-04] MEDS ORDERED: Sodium Chloride 0.9% 1000 ML 1,000 ML ONE ×2 (15:53→17:10)
[2020-10-04 16:18] LABS: Absolute Neutrophil Ct (ANC) 8.82 (1.4-6.9); BASOPHIL % 0.5 % (0.0-0.4); Basophil (Absolute #) 0.06 (0-0.4); Eosinophil % 0.3 % (0.00-5.0); Eosinophil (Absolute #) 0.03 (0-0.5); Hematocrit 39.7 % (35-47); Hemoglobin 12.8 gm/dl (12.0-16.0); Lymphocyte (Absolute #) 2.37 (1.0-4.6); Lymphocytes % 19.9 % (24.0-44.0); Mean Cell Volume 91.5 fl (78-100); Mean Corpuscular Hemoglobin 29.5 pg (26-32); Mean Corpuscular Hgb Concent. 32.2 g/dl (32-36); Mean Platelet Volume 10.2 fl (7.5-11.0); Monocyte (Absolute #) 0.65 (0.0-1.3); Monocytes % 5.4 % (0.0-12.0); Neutrophil % 73.9 % (36.0-66.0); Platelet Count 428 K/mm3 (150-450); Red Blood Count 4.34 M/mm3 (4.1-5.4); Red Cell Distribution Width 13.8 % (11.5-14.0); White Blood Count 11.9 K/mm3 (4.0-10.5)
[2020-10-04 16:29] LABS: ALBUMIN 3.9 g/dL (3.5-5.0); ALKALINE PHOSPHATASE 95 U/L (38-126); ANION GAP 22.9 MEQ/L (5-15); BLOOD UREA NITROGEN 13 mg/dL (7-17); CHLORIDE 97 mmol/L (98-107); Calcium 9.5 mg/dL (8.4-10.2); Creatinine 1 0.83 mg/dL (0.52-1.04); EST GLOMERULAR FILTRATION RATE > 60.0 ML/MIN; Glucose 451 mg/dL (74-106); MAGNESIUM 1.7 mg/dL (1.6-2.3); Potassium 4.5 mmol/L (3.5-5.1); SGOT/AST 19 U/L (14-36); SGPT/ALT 9 U/L (0-35); SODIUM 132 mmol/L (137-145); Total Protein 6.5 g/dL (6.3-8.2)
--- NOTE | 2020-10-04 16:30 | XRAY ---
Indication: Dizziness, nausea, and vomiting. Multiple contiguous axial images obtained through the head without contrast. Comparison: September 10, 2019. Normal appearing brain parenchyma, ventricles, and bony calvarium. Visualized paranasal sinuses and mastoid air cells are clear. Impression: Continued normal CT head without contrast exam.
[2020-10-04 16:42] LABS: Carbon Dioxide 15 mmol/L (22-30)
[2020-10-04] MEDS ORDERED: Sodium Chloride 0.9% 1000 ML 1,000 ML IV STA (17:01)
[2020-10-04] MEDS ORDERED: Hydromorphone 1 mg/ml Injection IV ONE (17:02)
[2020-10-04] MEDS ORDERED: HUMULIN R IV ONE (17:03)
[2020-10-04] MEDS ORDERED: HUMULIN R ONE (17:10)
[2020-10-04] MEDS ORDERED: Hydromorphone 1 mg/ml Injection ONE (17:10)
[2020-10-04 17:34] LABS: Appearance SLIGHTLY CLOUDY (CLEAR); Bacteria RARE /HPF (NEGATIVE); Bilirubin NEGATIVE (NEGATIVE); Blood NEGATIVE Ery/ul (0-5); Epithelial Cells RARE /HPF (FEW); Glucose >=500 mg/dL (NEGATIVE); Hyaline Casts 0-2 /LPF (0-2); Ketones MODERATE (NEGATIVE); Leukocyte Esterase NEGATIVE (NEGATIVE); Mucus SLIGHT /HPF (NEGATIVE); Nitrite NEGATIVE (NEGATIVE); Protein,Urine Dip >=500 (Negative); RBC 0-2 /HPF (0-2); Specific Gravity 1.017 (1.005-1.025); Urobilinogen NEGATIVE mg/dL (0-1)
[2020-10-04 17:45] LABS: Amphetamine,Urine NEGATIVE (NEGATIVE); Barbiturate,Urine NEGATIVE (NEGATIVE); Benzodiazepine,Urine NEGATIVE (NEGATIVE); Cocaine,Urine NEGATIVE (NEGATIVE); Methadone,Urine NEGATIVE (NEGATIVE); Opiate,Urine NEGATIVE (NEGATIVE); PCP,Urine NEGATIVE (NEGATIVE); THC,Urine NEGATIVE (NEGATIVE)
[2020-10-04] MEDS ORDERED: Compazine 10 MG/2 ML IV ONE (18:40)
[2020-10-04] MEDS ORDERED: Compazine 10 MG/2 ML ONE (19:46)
[2020-10-04] MEDS ORDERED: HUMALOG SQ ONE (22:55)
[2020-10-04] MEDS ORDERED: PROTONIX 40 MG IV IV SCH (23:00)
[2020-10-04] MEDS ORDERED: Lantus Insulin SQ ONE (23:00)
[2020-10-04] MEDS: Sodium Chloride 0.9% 1000 ML 1,000 ML IV SCH (23:13)
[2020-10-04] MEDS: Zofran 4 MG/2 ML VIAL IV PRN (23:21)
[2020-10-05] MEDS: Sodium Chloride 0.9% 1000 ML 1,000 ML IV SCH ×2 (00:30→04:35)
[2020-10-05 05:21] LABS: BASOPHIL % 0.4 % (0.0-0.4); Basophil (Absolute #) 0.04 (0-0.4); Eosinophil % 0.3 % (0.00-5.0); Eosinophil (Absolute #) 0.03 (0-0.5); Hematocrit 38.2 % (35-47); Hemoglobin 12.4 gm/dl (12.0-16.0); Lymphocyte (Absolute #) 3.05 (1.0-4.6); Lymphocytes % 28.4 % (24.0-44.0); Mean Cell Volume 91.4 fl (78-100); Mean Corpuscular Hemoglobin 29.7 pg (26-32); Mean Corpuscular Hgb Concent. 32.5 g/dl (32-36); Mean Platelet Volume 10.3 fl (7.5-11.0); Monocyte (Absolute #) 0.61 (0.0-1.3); Monocytes % 5.7 % (0.0-12.0); Neutrophil % 65.2 % (36.0-66.0); Platelet Count 418 K/mm3 (150-450); Red Blood Count 4.18 M/mm3 (4.1-5.4); White Blood Count 10.7 K/mm3 (4.0-10.5)
[2020-10-05 05:34] LABS: ALBUMIN 3.8 g/dL (3.5-5.0); ALKALINE PHOSPHATASE 90 U/L (38-126); ANION GAP 18.5 MEQ/L (5-15); BLOOD UREA NITROGEN 11 mg/dL (7-17); CHLORIDE 105 mmol/L (98-107); Calcium 9.2 mg/dL (8.4-10.2); Creatinine 1 0.66 mg/dL (0.52-1.04); EST GLOMERULAR FILTRATION RATE > 60.0 ML/MIN; Glucose 93 mg/dL (74-106); Potassium 3.3 mmol/L (3.5-5.1); SGOT/AST 18 U/L (14-36); SGPT/ALT 7 U/L (0-35); SODIUM 136 mmol/L (137-145); Total Protein 6.8 g/dL (6.3-8.2)
[2020-10-05 05:41] LABS: Carbon Dioxide 17 mmol/L (22-30)
[2020-10-05] MEDS: Zofran 4 MG/2 ML VIAL IV PRN ×3 (07:38→20:15)
[2020-10-05] MEDS: D5W/0.45NS W/ 20mEq KCl 1000 ML 1,000 ML IV SCH ×2 (08:46→16:52)
--- NOTE | 2020-10-05 09:46 | HP ---
CHIEF COMPLAINT: Nausea, vomiting, history of diabetes mellitus type I with multiple hospitalizations for diabetic ketoacidosis. HISTORY OF PRESENT ILLNESS: The patient is a 35 year-old white female who presented to the emergency room reporting that she felt weak, dizzy and had some nausea and vomiting. She is a known diabetic type I. The patient was seen in the emergency room and felt to need to be admitted for diabetic ketoacidosis treatment. PAST MEDICAL/SURGICAL HISTORY: The patient's medical history is otherwise significant for gallbladder disease, pancreatitis, anxiety and depression. She generally sees an accountant certified public for care of her diabetes but again the care has not been good as the patient is frequently in the hospital for the above problems. She previously had a cholecystectomy, D&C, section. HOME MEDICATIONS: Depo-Provera, Toujeo 34 units in the evening and Insulin Aspart 14 units subcu a.c., pantoprazole 40 mg a day for gastroesophageal reflux disease-type symptoms. ALLERGIES: NKDA. PHYSICAL EXAMINATION: The patient's vital signs on admission did show a slight temperature elevation at 99.5F. The patient reports she had no fever at home. She had not been ill nor been around anybody that was sick as far as she knew of. The pulse rate 115, respiratory rate 16, blood pressure 115/64. O2 saturation 99%. HEENT: Normocephalic, atraumatic. Pupils equal round reactive to light. Extraocular movements intact. Oropharynx is pink and moist. The patient was nauseated and vomiting during my visit. CHEST: Clear chest. HEART: Regular rate and rhythm. ABDOMEN: Somewhat tender in the epigastric region but otherwise no palpable masses were felt. EXTREMITIES: Without cyanosis, clubbing or edema. NEUROLOGIC: The patient is alert and oriented x3 with no focal deficits. LAB DATA AND TESTS: Laboratory studies when she presented to the emergency room showed sugar 451, BUN 13, creatinine 0.83. Her CO2 was 15. No liver enzyme abnormalities were noted. Lactic acid was 1.5. White count was 11,900 with hemoglobin 12.8, PLT count 428,000. It did appear that she had a mild left shift with 73.9% granulocytes. The COVID test was negative. Her urine drug screen was negative. UA was essentially normal with specific gravity 1.017, greater than 500 protein, greater than 500 glucose was noted. She had a CT of the head without contrast showing normal CT scan of the head. ASSESSMENT: She was admitted to the hospital with the diagnosis of mild diabetic ketoacidosis. She was given a liter of fluid in the emergency room and started normal saline at 250 cc/hour for the next 8 hours with Accu-Chek's. We did increase her long acting insulin at 50 units and placed on a low dose sliding scale coverage otherwise.
[2020-10-05] MEDS: TYLENOL 325 MG PO PRN ×2 (12:40→20:20)
[2020-10-05 14:03] LABS: ANION GAP 14.3 MEQ/L (5-15); BLOOD UREA NITROGEN 6 mg/dL (7-17); CHLORIDE 99 mmol/L (98-107); Calcium 8.9 mg/dL (8.4-10.2); Carbon Dioxide 24 mmol/L (22-30); Creatinine 1 0.52 mg/dL (0.52-1.04); EST GLOMERULAR FILTRATION RATE > 60.0 ML/MIN; Glucose 224 mg/dL (74-106); Potassium 3.6 mmol/L (3.5-5.1); SODIUM 133 mmol/L (137-145)
[2020-10-05] MEDS: HUMULIN R SQ PRN ×2 (14:29→21:35)
[2020-10-05] MEDS: PROTONIX 40 MG IV IV SCH (21:25)
[2020-10-06] MEDS: D5W/0.45NS W/ 20mEq KCl 1000 ML 1,000 ML IV SCH ×2 (00:52→07:27)
[2020-10-06] MEDS: TYLENOL 325 MG PO PRN (00:55)
[2020-10-06] MEDS: Zofran 4 MG/2 ML VIAL IV PRN ×4 (02:34→21:19)
[2020-10-06] MEDS: HUMULIN R SQ PRN ×5 (03:20→21:18)
[2020-10-06] MEDS ORDERED: Catapres 0.1 MG PO ONE (03:36)
[2020-10-06 06:41] LABS: Absolute Neutrophil Ct (ANC) 4.83 (1.4-6.9); BASOPHIL % 0.4 % (0.0-0.4); Basophil (Absolute #) 0.03 (0-0.4); Eosinophil % 0.7 % (0.00-5.0); Eosinophil (Absolute #) 0.06 (0-0.5); Hematocrit 39.3 % (35-47); Hemoglobin 13.1 gm/dl (12.0-16.0); Mean Cell Volume 89.7 fl (78-100); Mean Corpuscular Hemoglobin 29.9 pg (26-32); Mean Corpuscular Hgb Concent. 33.3 g/dl (32-36); Mean Platelet Volume 10.3 fl (7.5-11.0); Monocytes % 8.2 % (0.0-12.0); Neutrophil % 56.7 % (36.0-66.0); Platelet Count 375 K/mm3 (150-450); Red Blood Count 4.38 M/mm3 (4.1-5.4); Red Cell Distribution Width 13.7 % (11.5-14.0); White Blood Count 8.5 K/mm3 (4.0-10.5)
[2020-10-06 06:53] LABS: ALBUMIN 3.9 g/dL (3.5-5.0); ALKALINE PHOSPHATASE 86 U/L (38-126); ANION GAP 15.1 MEQ/L (5-15); BLOOD UREA NITROGEN 3 mg/dL (7-17); CHLORIDE 101 mmol/L (98-107); Calcium 9.3 mg/dL (8.4-10.2); Carbon Dioxide 24 mmol/L (22-30); Creatinine 1 0.57 mg/dL (0.52-1.04); EST GLOMERULAR FILTRATION RATE > 60.0 ML/MIN; Glucose 232 mg/dL (74-106); Potassium 3.5 mmol/L (3.5-5.1); SGOT/AST 25 U/L (14-36); SGPT/ALT 13 U/L (0-35); SODIUM 136 mmol/L (137-145); Total Protein 7.1 g/dL (6.3-8.2)
--- NOTE | 2020-10-06 10:17 | PCM.NOTE ---
Date and Time: 10/06/20 1012 Subjective Assessment: patient reports she is nauseated with po intake and had diarrhea after breakfast, not feeling well. had cholecystectomy 3 weeks ago. asking for something for neuropathy pain Objective Exam General Appearance: no apparent distress, alert Respiratory Exam: normal breath sounds, lungs clear, No respiratory distress Cardiovascular Exam: regular rate/rhythm, normal heart sounds Gastrointestinal/Abdomen Exam: soft, No tenderness, No mass Extremity Exam: normal inspection, normal range of motion OBJECTIVE DATA Vital Signs: Vital Signs - 24 hr Temp Pulse Resp BP Pulse Ox 10/06/20 08:00 98.1 F 104 H 20 159/94 94 L 10/06/20 04:59 170/92 10/06/20 03:49 199/97 10/06/20 03:30 98.4 F 110 H 22 184/100 98 10/06/20 00:00 20 10/05/20 23:46 99.0 F 108 H 20 169/81 98 10/05/20 20:00 16 10/05/20 19:58 98.2 F 110 H 16 181/86 98 10/05/20 16:00 98.8 F 111 H 18 189/100 97 10/05/20 12:00 98.6 F 114 H 18 159/88 95 Pain Assessment - Last Documented Pain Intensity 8 Pain Scale Used 0-10 Pain Scale Intake and Output: Intake & Output 10/03/20 10/04/20 10/05/20 10/06/20 11:59 11:59 11:59 11:59 Intake Total 1511 4316 Output Total 450 2500 Balance 1061 1816 Weight 64.4 kg Lab Results: Lab Results-Last 24 Hours 10/05/20 10/05/20 10/05/20 Range/Units 11:54 13:48 21:02 WBC (4.0-10.5) K/mm3 RBC (4.1-5.4) M/mm3 Hgb (12.0-16.0) gm/dl Hct (35-47) % MCV (78-100) fl MCH (26-32) pg MCHC (32-36) g/dl RDW (11.5-14.0) % Plt Count (150-450) K/mm3 MPV (7.5-11.0) fl Gran % (36.0-66.0) % Eos # (Auto) (0-0.5) Absolute Lymphs (auto) (1.0-4.6) Absolute Monos (auto) (0.0-1.3) Lymphocytes % (24.0-44.0) % Monocytes % (0.0-12.0) % Eosinophils % (0.00-5.0) % Basophils % (0.0-0.4) % Absolute Granulocytes (1.4-6.9) Basophils # (0-0.4) Sodium 133 L (137-145) mmol/L Potassium 3.6 (3.5-5.1) mmol/L Chloride 99 (98-107) mmol/L Carbon Dioxide 24 (22-30) mmol/L Anion Gap 14.3 (5-15) MEQ/L BUN 6 L (7-17) mg/dL Creatinine 0.52 (0.52-1.04) mg/dL Estimated GFR > 60.0 ML/MIN Glucose 224 H (74-106) mg/dL POC Glucometer 174 H 202 H (74 to 106) mg/dL Calcium 8.9 (8.4-10.2) mg/dL Total Bilirubin (0.2-1.3) mg/dL AST (14-36) U/L ALT (0-35) U/L Alkaline Phosphatase (38-126) U/L Serum Total Protein (6.3-8.2) g/dL Albumin (3.5-5.0) g/dL 10/05/20 10/06/20 10/06/20 Range/Units 22:48 03:15 05:25 WBC 8.5 (4.0-10.5) K/mm3 RBC 4.38 (4.1-5.4) M/mm3 Hgb 13.1 (12.0-16.0) gm/dl Hct 39.3 (35-47) % MCV 89.7 (78-100) fl MCH 29.9 (26-32) pg MCHC 33.3 (32-36) g/dl RDW 13.7 (11.5-14.0) % Plt Count 375 (150-450) K/mm3 MPV 10.3 (7.5-11.0) fl Gran % 56.7 (36.0-66.0) % Eos # (Auto) 0.06 (0-0.5) Absolute Lymphs (auto) 2.90 (1.0-4.6) Absolute Monos (auto) 0.70 (0.0-1.3) Lymphocytes % 34.0 (24.0-44.0) % Monocytes % 8.2 (0.0-12.0) % Eosinophils % 0.7 (0.00-5.0) % Basophils % 0.4 (0.0-0.4) % Absolute Granulocytes 4.83 (1.4-6.9) Basophils # 0.03 (0-0.4) Sodium (137-145) mmol/L Potassium (3.5-5.1) mmol/L Chloride (98-107) mmol/L Carbon Dioxide (22-30) mmol/L Anion Gap (5-15) MEQ/L BUN (7-17) mg/dL Creatinine (0.52-1.04) mg/dL Estimated GFR ML/MIN Glucose (74-106) mg/dL POC Glucometer 260 H 271 H (74 to 106) mg/dL Calcium (8.4-10.2) mg/dL Total Bilirubin (0.2-1.3) mg/dL AST (14-36) U/L ALT (0-35) U/L Alkaline Phosphatase (38-126) U/L Serum Total Protein (6.3-8.2) g/dL Albumin (3.5-5.0) g/dL 10/06/20 Range/Units 05:25 WBC (4.0-10.5) K/mm3 RBC (4.1-5.4) M/mm3 Hgb (12.0-16.0) gm/dl Hct (35-47) % MCV (78-100) fl MCH (26-32) pg MCHC (32-36) g/dl RDW (11.5-14.0) % Plt Count (150-450) K/mm3 MPV (7.5-11.0) fl Gran % (36.0-66.0) % Eos # (Auto) (0-0.5) Absolute Lymphs (auto) (1.0-4.6) Absolute Monos (auto) (0.0-1.3) Lymphocytes % (24.0-44.0) % Monocytes % (0.0-12.0) % Eosinophils % (0.00-5.0) % Basophils % (0.0-0.4) % Absolute Granulocytes (1.4-6.9) Basophils # (0-0.4) Sodium 136 L (137-145) mmol/L Potassium 3.5 (3.5-5.1) mmol/L Chloride 101 (98-107) mmol/L Carbon Dioxide 24 (22-30) mmol/L Anion Gap 15.1 H (5-15) MEQ/L BUN 3 L (7-17) mg/dL Creatinine 0.57 (0.52-1.04) mg/dL Estimated GFR > 60.0 ML/MIN Glucose 232 H (74-106) mg/dL POC Glucometer (74 to 106) mg/dL Calcium 9.3 (8.4-10.2) mg/dL Total Bilirubin 0.60 (0.2-1.3) mg/dL AST 25 (14-36) U/L ALT 13 (0-35) U/L Alkaline Phosphatase 86 (38-126) U/L Serum Total Protein 7.1 (6.3-8.2) g/dL Albumin 3.9 (3.5-5.0) g/dL Radiology Exams: Radiology Procedures Category Date Time Status HEAD WITHOUT CONTRAST [CT] Stat Exams 10/04/20 15:32 Completed Assessment/Plan (1) DKA (diabetic ketoacidoses) Current Visit: Yes Status: Acute Assessment & Plan: start lantus, change to nondextrose containing fluids (sugars over 200 consistently) Code(s): E11.10 - TYPE 2 DIABETES MELLITUS WITH KETOACIDOSIS WITHOUT COMA (2) Postoperative abdominal pain Current Visit: No Status: Acute Assessment & Plan: tramadol for pain Code(s): R10.9 - UNSPECIFIED ABDOMINAL PAIN; G89.18 - OTHER ACUTE POSTPROCEDURAL PAIN
[2020-10-06] MEDS: Lantus Insulin SQ SCH (11:59)
[2020-10-06] MEDS: ULTRAM 50 MG PO PRN ×2 (11:59→17:59)
[2020-10-06] MEDS: SODIUM CHLORIDE 0.45% W/ 20 mEq KCL 1,000 ML IV SCH ×2 (12:39→22:41)
[2020-10-06] MEDS: PROTONIX 40 MG IV IV SCH (22:12)
[2020-10-07] MEDS: ULTRAM 50 MG PO PRN ×2 (00:12→12:18)
[2020-10-07] MEDS: Zofran 4 MG/2 ML VIAL IV PRN ×2 (04:25→10:35)
[2020-10-07] MEDS: HUMULIN R SQ PRN ×3 (06:20→12:56)
[2020-10-07 06:37] LABS: Absolute Neutrophil Ct (ANC) 2.79 (1.4-6.9); BASOPHIL % 0.4 % (0.0-0.4); Basophil (Absolute #) 0.03 (0-0.4); Eosinophil % 1.8 % (0.00-5.0); Eosinophil (Absolute #) 0.14 (0-0.5); Hemoglobin 11.9 gm/dl (12.0-16.0); Lymphocyte (Absolute #) 4.25 (1.0-4.6); Lymphocytes % 55.1 % (24.0-44.0); Mean Cell Volume 91.8 fl (78-100); Mean Corpuscular Hemoglobin 29.5 pg (26-32); Mean Corpuscular Hgb Concent. 32.2 g/dl (32-36); Mean Platelet Volume 10.5 fl (7.5-11.0); Monocyte (Absolute #) 0.51 (0.0-1.3); Monocytes % 6.6 % (0.0-12.0); Neutrophil % 36.1 % (36.0-66.0); Platelet Count 306 K/mm3 (150-450); Red Blood Count 4.03 M/mm3 (4.1-5.4); Red Cell Distribution Width 13.8 % (11.5-14.0); White Blood Count 7.7 K/mm3 (4.0-10.5)
[2020-10-07 06:55] LABS: ALBUMIN 2.9 g/dL (3.5-5.0); ALKALINE PHOSPHATASE 68 U/L (38-126); BLOOD UREA NITROGEN 6 mg/dL (7-17); CHLORIDE 103 mmol/L (98-107); Calcium 8.7 mg/dL (8.4-10.2); Carbon Dioxide 26 mmol/L (22-30); Creatinine 1 0.68 mg/dL (0.52-1.04); EST GLOMERULAR FILTRATION RATE > 60.0 ML/MIN; Glucose 305 mg/dL (74-106); Potassium 4.6 mmol/L (3.5-5.1); SGOT/AST 18 U/L (14-36); SGPT/ALT 7 U/L (0-35); SODIUM 134 mmol/L (137-145); Total Protein 5.7 g/dL (6.3-8.2)
[2020-10-07] MEDS: SODIUM CHLORIDE 0.45% W/ 20 mEq KCL 1,000 ML IV SCH (07:17)
[2020-10-07 07:47] VITALS: O2SAT 97
[2020-10-07] MEDS: Lantus Insulin SQ SCH (08:29)
--- NOTE | 2020-10-07 08:40 | PCM.DS ---
Discharge Summary Date of Admission: 10/04/20 20:49 Admitting Physician: ALAN MORAN Primary Care Provider: ALAN MORAN Allergies Allergies No Known Drug Allergies Allergy (Verified 10/04/20 14:07) Hospital Summary - Hospital Course Hospital Course: patient feeling much better today, tolerating po. no vomiting or abd pain. - Vitals & Intake/Output Vital Signs: Vital Signs Temperature 97.7 F 10/07/20 07:46 Pulse Rate 97 H 10/07/20 07:46 Respiratory Rate 20 10/07/20 07:46 Blood Pressure 157/77 10/07/20 07:46 O2 Sat by Pulse Oximetry 97 10/07/20 07:46 Intake & Output: Intake & Output 10/04/20 10/05/20 10/06/20 10/07/20 11:59 11:59 11:59 11:59 Intake Total 1511 4796 4282 Output Total 450 2500 Balance 1061 2296 4282 Weight 64.4 kg - Lab Result Diagrams: 10/07/20 05:35 10/07/20 05:35 Lab Results-Last 24 Hrs: Lab Results-Last 24 Hours 10/06/20 10/07/20 10/07/20 Range/Units 20:46 05:35 05:35 WBC 7.7 (4.0-10.5) K/mm3 RBC 4.03 L (4.1-5.4) M/mm3 Hgb 11.9 L (12.0-16.0) gm/dl Hct 37.0 (35-47) % MCV 91.8 (78-100) fl MCH 29.5 (26-32) pg MCHC 32.2 (32-36) g/dl RDW 13.8 (11.5-14.0) % Plt Count 306 (150-450) K/mm3 MPV 10.5 (7.5-11.0) fl Gran % 36.1 (36.0-66.0) % Eos # (Auto) 0.14 (0-0.5) Absolute Lymphs (auto) 4.25 (1.0-4.6) Absolute Monos (auto) 0.51 (0.0-1.3) Lymphocytes % 55.1 H (24.0-44.0) % Monocytes % 6.6 (0.0-12.0) % Eosinophils % 1.8 (0.00-5.0) % Basophils % 0.4 (0.0-0.4) % Absolute Granulocytes 2.79 (1.4-6.9) Basophils # 0.03 (0-0.4) Sodium 134 L (137-145) mmol/L Potassium 4.6 D (3.5-5.1) mmol/L Chloride 103 (98-107) mmol/L Carbon Dioxide 26 (22-30) mmol/L Anion Gap 10.0 (5-15) MEQ/L BUN 6 L (7-17) mg/dL Creatinine 0.68 (0.52-1.04) mg/dL Estimated GFR > 60.0 ML/MIN Glucose 305 H (74-106) mg/dL POC Glucometer 258 H (74 to 106) mg/dL Calcium 8.7 (8.4-10.2) mg/dL Total Bilirubin 0.30 (0.2-1.3) mg/dL AST 18 (14-36) U/L ALT 7 (0-35) U/L Alkaline Phosphatase 68 (38-126) U/L Serum Total Protein 5.7 L (6.3-8.2) g/dL Albumin 2.9 L (3.5-5.0) g/dL // Range/Units 06:13 WBC (4.0-10.5) K/mm3 RBC (4.1-5.4) M/mm3 Hgb (12.0-16.0) gm/dl Hct (35-47) % MCV (78-100) fl MCH (26-32) pg MCHC (32-36) g/dl RDW (11.5-14.0) % Plt Count (150-450) K/mm3 MPV (7.5-11.0) fl Gran % (36.0-66.0) % Eos # (Auto) (0-0.5) Absolute Lymphs (auto) (1.0-4.6) Absolute Monos (auto) (0.0-1.3) Lymphocytes % (24.0-44.0) % Monocytes % (0.0-12.0) % Eosinophils % (0.00-5.0) % Basophils % (0.0-0.4) % Absolute Granulocytes (1.4-6.9) Basophils # (0-0.4) Sodium (137-145) mmol/L Potassium (3.5-5.1) mmol/L Chloride (98-107) mmol/L Carbon Dioxide (22-30) mmol/L Anion Gap (5-15) MEQ/L BUN (7-17) mg/dL Creatinine (0.52-1.04) mg/dL Estimated GFR ML/MIN Glucose (74-106) mg/dL POC Glucometer 276 H (74 to 106) mg/dL Calcium (8.4-10.2) mg/dL Total Bilirubin (0.2-1.3) mg/dL AST (14-36) U/L ALT (0-35) U/L Alkaline Phosphatase (38-126) U/L Serum Total Protein (6.3-8.2) g/dL Albumin (3.5-5.0) g/dL Micro Results-Entire Visit: Accuchecks Date 10/06/20 Date 10/06/20 - Procedures and Test Procedures and Tests throughout Hospitalization: Therapy Orders & Screens 10/04/20 21:32 Smoking Cessation Education ONCE Comment: Diagnosis: DKA Smoking Status: Current every day smoker How long have you smoked: 20 y Have you smoked in the past 12 months: Yes Approximately how many cigarettes per day: 1/2 pack Do you dip or chew tobacco: No Discharge Exam General Appearance: no apparent distress, alert Neurologic Exam: alert, oriented x 3 Respiratory Exam: normal breath sounds, lungs clear, No respiratory distress Cardiovascular Exam: regular rate/rhythm, normal heart sounds Gastrointestinal/Abdomen Exam: soft, No tenderness, No mass Skin Exam: normal color Final Diagnosis/Problem List - Final Discharge Diagnosis/Problem (1) DKA (diabetic ketoacidoses) Current Visit: Yes Status: Acute Assessment & Plan: resolved, patient has insulin and all necessary supplies at home when asked Code(s): E11.10 - TYPE 2 DIABETES MELLITUS WITH KETOACIDOSIS WITHOUT COMA (2) Postoperative abdominal pain Current Visit: No Status: Acute Assessment & Plan: doing well, tolerating regular diet and looks good Code(s): R10.9 - UNSPECIFIED ABDOMINAL PAIN; G89.18 - OTHER ACUTE POSTPROCEDURAL PAIN - Discharge Disposition: Home, Self-Care Condition: Stable Prescriptions: Continue Medroxyprogesterone Acet [Depo-Provera] 150 mg IM Q90D Insulin Aspart (Niacinamide) [Fiasp 100 Unit/ml Flextouch] 14 units SQ AC Insulin Glargine,Hum.rec.anlog [Touleena Solnadine] 34 units SQ HS PANTOPRAZOLE 40 mg Tablet [Protonix 40MG Tablet] 40 mg PO QAM #30 tab Follow up with: ALAN MORAN [Primary Care Provider] - 1 Week
[2020-10-07 14:05] VITALS: BP 124/68; PULSE 110
== END 2020-10-07 13:08 | disposition home or self-care (01) ==
LOC: ED 13:45 → MED SURG 20:49
PROVIDERS: ADMIT Family Medicine; ATTEND Family Medicine
DX: E10.10 Type 1 diabetes mellitus with ketoacidosis without coma (principal); R42 Dizziness and giddiness; I95.1 Orthostatic hypotension; Z79.899 Other long term (current) drug therapy; Z79.4 Long term (current) use of insulin; R10.9 Unspecified abdominal pain; G89.18 Other acute postprocedural pain
CPT/HCPCS: 36000; 36415; 70450; 80048; 80053; 80307; 81001; 82947; 83605; 83735; 85025; 96360; 96374; 96375; 99284; 99291; G0378; U0003; J1170; J1815; J1817; J2405; A9270-GY

== ENCOUNTER 2020-12-30 17:08 | Observation (INO) | payer OTHER ==
[2020-12-30] MEDS ORDERED: Sodium Chloride 0.9% 1000 ML 1,000 ML IV STA (17:46)
[2020-12-30] MEDS ORDERED: Zofran 4 MG/2 ML VIAL IV ONE ×2 (17:46→20:11)
[2020-12-30] MEDS ORDERED: SUBLIMAZE 100 MCG/2 ML IV ONE (17:46)
[2020-12-30 17:56] LABS: Appearance CLEAR (CLEAR); Bilirubin NEGATIVE (NEGATIVE); Blood NEGATIVE Ery/ul (0-5); Glucose >=500 mg/dL (NEGATIVE); Ketones MODERATE (NEGATIVE); Leukocyte Esterase NEGATIVE (NEGATIVE); Nitrite NEGATIVE (NEGATIVE); Protein,Urine Dip 100 (Negative); Specific Gravity 1.023 (1.005-1.025); Urobilinogen NEGATIVE mg/dL (0-1)
[2020-12-30] MEDS ORDERED: Zofran 4 MG/2 ML VIAL ONE ×2 (18:10→20:25)
[2020-12-30] MEDS ORDERED: Sodium Chloride 0.9% 1000 ML 1,000 ML ONE (18:11)
[2020-12-30] MEDS ORDERED: SUBLIMAZE 100 MCG/2 ML ONE (18:11)
[2020-12-30 19:27] LABS: A-aADO2 -6; ABG HEMOGLOBIN 13.6; ABG POTASSIUM 4.7 (3.5-5.1); ABG SITE RIGHT BRACHIAL; ARTERIAL BLD GAS O2 SATURATION 98.9 % (95-100); ARTERIAL BLOOD GAS BASE EXCESS -9.6 (-2.0-2.0); ARTERIAL BLOOD GAS FIO2 21 %; ARTERIAL BLOOD GAS PCO2 20 mmHg (35-45); ARTERIAL BLOOD GAS PO2 131 mmHg (75-100); ARTERIAL BLOOD GAS pH 7.41 (7.35-7.45); CARBOXYHEMOGLOBIN 4.1 % THgb (0.0-6.9); HCO3- 12.7 (22-28); HGB O2 SAT 93.9 g/dF (94-100)
[2020-12-30 19:27] LABS: Absolute Neutrophil Ct (ANC) 8.34 (1.4-6.9); BASOPHIL % 0.5 % (0.0-0.4); Basophil (Absolute #) 0.06 (0-0.4); Eosinophil % 0.2 % (0.00-5.0); Eosinophil (Absolute #) 0.02 (0-0.5); Hematocrit 39.7 % (35-47); Lymphocyte (Absolute #) 2.38 (1.0-4.6); Lymphocytes % 21.3 % (24.0-44.0); Mean Cell Volume 93.6 fl (78-100); Mean Corpuscular Hemoglobin 30.7 pg (26-32); Mean Corpuscular Hgb Concent. 32.7 g/dl (32-36); Mean Platelet Volume 10.4 fl (7.5-11.0); Monocyte (Absolute #) 0.37 (0.0-1.3); Monocytes % 3.3 % (0.0-12.0); Neutrophil % 74.7 % (36.0-66.0); Platelet Count 306 K/mm3 (150-450); Red Blood Count 4.24 M/mm3 (4.1-5.4); Red Cell Distribution Width 12.9 % (11.5-14.0); White Blood Count 11.2 K/mm3 (4.0-10.5)
[2020-12-30] MEDS ORDERED: Reglan 10 MG/2 ML IV ONE (19:46)
[2020-12-30] MEDS ORDERED: Hydromorphone 1 mg/ml Injection IV ONE (19:46)
--- NOTE | 2020-12-30 19:50 | ERPHSYRPT ---
- History of Present Illness Time Seen by Provider: 12/30/20 17:19 Historian: patient Exam Limitations: no limitations Patient Subjective Stated Complaint: Vomiting Triage Nursing Assessment: Patient ambulated back to ED and transferred self to bed. Patient A+O X3. Patient's skin pink, warm and dry. Patient complains of vomiting all day. Patient is type 1 diabetic and states her blood sugars have been in the 300s all day. Patient complains of body aches and abdominal pain 09/01. Patient also complains of nausea and diarrhea. Physician History: 35 years old type I diabetic presented in the ER with chief complaint of generalized abdominal pain since morning with associated multiple episodes of nonprojectile, nonbilious vomiting without hematemesis. Patient feels weak fatigued tired and dehydrated. No fever or chills reported. Timing/Duration: today, constant, worse Activities at Onset: rest Quality: dullness, sharpness Abdominal Pain Onset Location: generalized abdomen Pain Radiation: no radiation Severity of Pain-Max: moderate Severity of Pain-Current: moderate Modifying Factors: Worsens With: movement, vomiting Associated Symptoms: nausea, vomiting Previous symptoms: same symptoms as today Allergies/Adverse Reactions: No Known Drug Allergies Allergy (Verified 12/30/20 17:17) Home Medications: Medroxyprogesterone Acet [Depo-Provera] 150 mg IM Q90D 09/10/19 [History] Insulin Aspart (Niacinamide) [Fiasp 100 Unit/ml Flextouch] 14 units SQ AC 07/03/20 [History] Insulin Glargine,Hum.rec.anlog [Touleena Solnadine] 34 units SQ HS 07/04/20 [History] Hx Tetanus, Diphtheria Vaccination/Date Given: Yes Hx Influenza Vaccination/Date Given: No Hx Pneumococcal Vaccination/Date Given: No Immunizations Up to Date: Yes Travel Risk - International Travel Have you traveled outside of the country in past 3 weeks: No - Coronavirus Screening Are you exhibiting any of the following symptoms?: No Close contact with a COVID-19 positive Pt in past 14-21 Days: No - Vaccine Status Have you recieved a Covid-19 vaccination: No - Review of Systems Constitutional: Fatigue, Weakness Eyes: No Symptoms Ears, Nose, & Throat: No Symptoms Respiratory: No Symptoms Cardiac: No Symptoms Abdominal/Gastrointestinal: Abdominal Pain, Nausea, Vomiting Genitourinary Symptoms: No Symptoms Musculoskeletal: No Symptoms Skin: No Symptoms Neurological: No Symptoms Psychological: No Symptoms Endocrine: No Symptoms Hematologic/Lymphatic: No Symptoms Immunological/Allergic: No Symptoms - Past Medical History Pertinent Past Medical History: Yes Neurological History: Peripheral Neuropathy ENT History: No Pertinent History Cardiac History: No Pertinent History Respiratory History: No Pertinent History Endocrine Medical History: Diabetes Type I Musculoskeletal History: Arthritis, Fibromyalgia GI Medical History: Pancreatitis History: No Pertinent History Psycho-Social History: Anxiety, Depression Female Reproductive Disorders: No Pertinent History Other Medical History: gallbladder out september 13, 2020 - Past Surgical History Past Surgical History: Yes Neuro Surgical History: No Pertinent History Cardiac: No Pertinent History Respiratory: No Pertinent History Gastrointestinal: Cholecystectomy Genitourinary: No Pertinent History Musculoskeletal: No Pertinent History Female Surgical History: Dilation & Curettage, Section Other Surgical History: cs x2. hayden - Social History Smoking Status: Current every day smoker How long have you smoked: 20 y Exposure to second hand smoke: No Alcohol Use: None Drug Use: none Patient Lives Alone: No Significant Family History: heart disease, diabetes - Female History Hx Last Menstrual Period: Depo Hx Now: (unkn) - Nursing Vital Signs Nursing Vital Signs: Initial Vital Signs Temperature 97.1 F 12/30/20 17:19 Pulse Rate 129 H 12/30/20 17:19 Respiratory Rate 18 12/30/20 17:19 Blood Pressure 159/96 12/30/20 17:19 O2 Sat by Pulse Oximetry 99 12/30/20 17:19 Pain Scale Pain Intensity 3 - Physical Exam General Appearance: no apparent distress, alert Eye Exam: PERRL/EOMI, eyes nml inspection Ears, Nose, Throat Exam: normal ENT inspection, pharynx normal Neck Exam: normal inspection, supple, full range of motion Respiratory Exam: normal breath sounds, lungs clear Cardiovascular Exam: normal heart sounds, tachycardia Gastrointestinal/Abdomen Exam: soft, normal bowel sounds, tenderness (Generalized), No rebound Back Exam: normal inspection, normal range of motion, No CVA tenderness Extremity Exam: normal inspection, normal range of motion Neurologic Exam: alert, oriented x 3, cooperative Skin Exam: normal color SpO2 Interpretation: normal SpO2: 98 O2 Delivery: Room Air Ordered Tests: Active Orders 24 hr Category Date Time Status IV Insertion STAT Care 12/30/20 17:46 Active NPO (ED) STAT Care 12/30/20 17:46 Active ABDOMEN AND PELVIS W/0 CONTRAS [CT] Stat Exams 12/30/20 17:46 Taken ARTERIAL BLOOD GASES Routine Lab 12/30/20 19:20 Completed CBC W DIFF Stat Lab 12/30/20 19:24 Completed CMP Stat Lab 12/30/20 19:24 Completed LIPASE Stat Lab 12/30/20 19:24 Completed MAGNESIUM Stat Lab 12/30/20 20:11 Ordered POCT GLUCOSE Stat Lab 12/30/20 18:42 Completed POCT GLUCOSE Stat Lab 12/30/20 19:41 Completed UA W/RFX UR CULTURE Stat Lab 12/30/20 17:52 Completed Medication Summary Generic Name Dose Route Start Last Admin Trade Name Freq PRN Reason Stop Dose Admin Insulin Human Regular 100 unit 100 mls @ 0 mls/hr 12/30/20 20:11 / Sodium Chloride IV 01/29/21 20:10 .[id number] PRN DKA/HYPERGLYCEMIA Protocol 0.1 UNIT/KG/HR Discontinued Medications Generic Name Dose Route Start Last Admin Trade Name Freq PRN Reason Stop Dose Admin Fentanyl Citrate 50 mcg 12/30/20 17:46 12/30/20 18:16 Fentanyl Citrate 100 Mcg/2 Ml* Vial IV 12/30/20 17:47 50 mcg STAT ONE Administration Fentanyl Citrate Confirm 12/30/20 18:11 Fentanyl Citrate 100 Mcg/2 Ml* Vial Administered 12/30/20 18:12 Dose 100 mcg .ROUTE .STK-MED ONE Hydromorphone HCl 0.5 mg 12/30/20 19:46 Hydromorphone 1 Mg/1ml Inj 1 Mg/Ml Syringe IV 12/30/20 19:47 STAT ONE Sodium Chloride 1,000 mls @ 999 mls/hr 12/30/20 17:46 12/30/20 19:30 Sodium Chloride 0.9% 1000 Ml IV 12/30/20 18:46 Infused .Q1H1M STA Infusion Sodium Chloride Confirm 12/30/20 18:11 Sodium Chloride 0.9% 1000 Ml Administered 12/30/20 18:12 Dose 1,000 mls @ ud .ROUTE .STK-MED ONE Metoclopramide HCl 10 mg 12/30/20 19:46 Metoclopramide Hcl 10 Mg/2 Ml Vial IV 11/07/21 19:47 STAT ONE Ondansetron HCl 4 mg 12/30/20 17:46 12/30/20 18:17 Ondansetron Hcl 4 Mg/2 Ml Vial IV 12/30/20 17:47 4 mg STAT ONE Administration Ondansetron HCl Confirm 12/30/20 18:10 Ondansetron Hcl 4 Mg/2 Ml Vial Administered 12/30/20 18:11 Dose 4 mg .ROUTE .STK-MED ONE Ondansetron HCl 4 mg 12/30/20 20:11 Ondansetron Hcl 4 Mg/2 Ml Vial IV 12/30/20 20:12 STAT ONE Lab/Rad Data: Laboratory Result Diagrams 12/30/20 19:24 12/30/20 19:24 Laboratory Results 12/30/20 12/30/20 12/30/20 Range/Units 19:41 19:24 19:24 WBC 11.2 H (4.0-10.5) K/mm3 RBC 4.24 (4.1-5.4) M/mm3 Hgb 13.0 (12.0-16.0) gm/dl Hct 39.7 (35-47) % MCV 93.6 (78-100) fl MCH 30.7 (26-32) pg MCHC 32.7 (32-36) g/dl RDW 12.9 (11.5-14.0) % Plt Count 306 (150-450) K/mm3 MPV 10.4 (7.5-11.0) fl Gran % 74.7 H (36.0-66.0) % Eos # (Auto) 0.02 (0-0.5) Absolute Lymphs (auto) 2.38 (1.0-4.6) Absolute Monos (auto) 0.37 (0.0-1.3) Lymphocytes % 21.3 L (24.0-44.0) % Monocytes % 3.3 (0.0-12.0) % Eosinophils % 0.2 (0.00-5.0) % Basophils % 0.5 (0.0-0.4) % Absolute Granulocytes 8.34 H (1.4-6.9) Basophils # 0.06 (0-0.4) Puncture Site pCO2 (35-45) mmHg pO2 (75-100) mmHg Base Excess (-2.0-2.0) O2 Saturation (94-100) g/dF ABG pH (7.35-7.45) ABG HCO3 (22-28) ABG O2 Sat (Measured) (95-100) % Graham Test A-a Gradient a/A Ratio Hemoglobin Carboxyhemoglobin (0.0-6.9) % THgb Methemoglobin (1.4-1.5) % Potassium 4.9 (3.5-5.1) Temperature C POC O2 Flow Rate % Sodium 136 L (137-145) mmol/L Chloride 101 (98-107) mmol/L Carbon Dioxide 13 L* (22-30) mmol/L Anion Gap 26.2 H (5-15) MEQ/L BUN 15 (7-17) mg/dL Creatinine 0.68 (0.52-1.04) mg/dL Estimated GFR > 60.0 ML/MIN Glucose 519 H* (74-106) mg/dL POC Glucometer 460 H (74 to 106) mg/dL Calcium 9.4 (8.4-10.2) mg/dL Total Bilirubin 0.80 (0.2-1.3) mg/dL AST 16 (14-36) U/L ALT 10 (0-35) U/L Alkaline Phosphatase 111 (38-126) U/L Serum Total Protein 6.5 (6.3-8.2) g/dL Albumin 3.8 (3.5-5.0) g/dL Lipase 17 L (23-300) U/L Urine Color (YELLOW) Urine Appearance (CLEAR) Urine pH (5-6) Ur Specific Arabi (1.005-1.025) Urine Protein (Negative) Urine Ketones (NEGATIVE) Urine Blood (0-5) Rodney/ul Urine Nitrite (NEGATIVE) Urine Bilirubin (NEGATIVE) Urine Urobilinogen (0-1) mg/dL Ur Leukocyte Esterase (NEGATIVE) Urine WBC (Auto) (0-5) /HPF Urine RBC (Auto) (0-2) /HPF U Epithel Cells (Auto) (FEW) /HPF Urine Bacteria (Auto) (NEGATIVE) /HPF Urine Culture Reflexed (NO) Urine Glucose (NEGATIVE) mg/dL 12/30/20 12/30/20 12/30/20 Range/Units 19:20 18:42 17:52 WBC (4.0-10.5) K/mm3 RBC (4.1-5.4) M/mm3 Hgb (12.0-16.0) gm/dl Hct (35-47) % MCV (78-100) fl MCH (26-32) pg MCHC (32-36) g/dl RDW (11.5-14.0) % Plt Count (150-450) K/mm3 MPV (7.5-11.0) fl Gran % (36.0-66.0) % Eos # (Auto) (0-0.5) Absolute Lymphs (auto) (1.0-4.6) Absolute Monos (auto) (0.0-1.3) Lymphocytes % (24.0-44.0) % Monocytes % (0.0-12.0) % Eosinophils % (0.00-5.0) % Basophils % (0.0-0.4) % Absolute Granulocytes (1.4-6.9) Basophils # (0-0.4) Puncture Site RIGHT BRACHIAL pCO2 20 L* (35-45) mmHg pO2 131 H* (75-100) mmHg Base Excess -9.6 L (-2.0-2.0) O2 Saturation 93.9 L (94-100) g/dF ABG pH 7.41 (7.35-7.45) ABG HCO3 12.7 L* (22-28) ABG O2 Sat (Measured) 98.9 (95-100) % Graham Test NOT APPLICABLE A-a Gradient -6 a/A Ratio 1.05 Hemoglobin 13.6 Carboxyhemoglobin 4.1 (0.0-6.9) % THgb Methemoglobin 1.0 L (1.4-1.5) % Potassium 4.7 (3.5-5.1) Temperature 37.0 C POC O2 Flow Rate 21 % Sodium (137-145) mmol/L Chloride (98-107) mmol/L Carbon Dioxide (22-30) mmol/L Anion Gap (5-15) MEQ/L BUN (7-17) mg/dL Creatinine (0.52-1.04) mg/dL Estimated GFR ML/MIN Glucose (74-106) mg/dL POC Glucometer 457 H (74 to 106) mg/dL Calcium (8.4-10.2) mg/dL Total Bilirubin (0.2-1.3) mg/dL AST (14-36) U/L ALT (0-35) U/L Alkaline Phosphatase (38-126) U/L Serum Total Protein (6.3-8.2) g/dL Albumin (3.5-5.0) g/dL Lipase (23-300) U/L Urine Color STRAW (YELLOW) Urine Appearance CLEAR (CLEAR) Urine pH 5.0 (5-6) Ur Specific Arabi 1.023 (1.005-1.025) Urine Protein 100 (Negative) Urine Ketones MODERATE (NEGATIVE) Urine Blood NEGATIVE (0-5) Rodney/ul Urine Nitrite NEGATIVE (NEGATIVE) Urine Bilirubin NEGATIVE (NEGATIVE) Urine Urobilinogen NEGATIVE (0-1) mg/dL Ur Leukocyte Esterase NEGATIVE (NEGATIVE) Urine WBC (Auto) NONE (0-5) /HPF Urine RBC (Auto) NONE (0-2) /HPF U Epithel Cells (Auto) NONE (FEW) /HPF Urine Bacteria (Auto) NONE (NEGATIVE) /HPF Urine Culture Reflexed NO (NO) Urine Glucose >=500 (NEGATIVE) mg/dL - Progress Progress: improved, pain not gone completely, re-examined Progress Note: 12/30/20 20:24 She is given fluids and symptomatic treatment for pain, feeling better on reevaluation. Work-up showed white count of 11, bicarb of 13 with a gap of 26 and glucose in 500s. Although patient has pH 7.4. I believe she is going in DKA. She is started on insulin drip. I have obtained CT abdomen pelvis which is nonspecific for any acute findings. Discussed with Dr. Wilcox and patient is admitted to ICU. Discussed with .: Tra Will see patient in: hospital (observation) Counseled pt/family regarding: lab results, diagnosis, need for follow-up, rad results - Departure Departure Disposition: Observation Clinical Impression: DKA (diabetic ketoacidoses) Qualifiers: Diabetes mellitus type: type 1 Diabetes mellitus complication detail: without coma Qualified Code(s): E10.10 - Type 1 diabetes mellitus with ketoacidosis without coma Nausea and vomiting Qualifiers: Vomiting type: unspecified Vomiting Intractability: non-intractable Qualified Code(s): R11.2 - Nausea with vomiting, unspecified Abdominal pain Qualifiers: Abdominal location: generalized Qualified Code(s): R10.84 - Generalized abdominal pain Condition: Stable Critical Care Time: No Referrals: ALAN WILCOX [Primary Care Provider] - Follow up/PCP as directed
[2020-12-30 20:00] LABS: ALBUMIN 3.8 g/dL (3.5-5.0); ALKALINE PHOSPHATASE 111 U/L (38-126); ANION GAP 26.2 MEQ/L (5-15); BLOOD UREA NITROGEN 15 mg/dL (7-17); CHLORIDE 101 mmol/L (98-107); Calcium 9.4 mg/dL (8.4-10.2); Creatinine 1 0.68 mg/dL (0.52-1.04); EST GLOMERULAR FILTRATION RATE > 60.0 ML/MIN; LIPASE 17 U/L (23-300); Potassium 4.9 mmol/L (3.5-5.1); SGOT/AST 16 U/L (14-36); SGPT/ALT 10 U/L (0-35); SODIUM 136 mmol/L (137-145); Total Protein 6.5 g/dL (6.3-8.2)
[2020-12-30 20:08] LABS: Carbon Dioxide 13 mmol/L (22-30); Glucose 519 mg/dL (74-106)
[2020-12-30] MEDS ORDERED: HUMULIN R 100 UNIT in Sodium Chloride 0.9% 100 ML BAG 100 ML IV PRN (20:11)
[2020-12-30] MEDS ORDERED: Reglan 10 MG/2 ML ONE (20:26)
[2020-12-30] MEDS ORDERED: Hydromorphone 1 mg/ml Injection ONE (20:26)
[2020-12-30] MEDS ORDERED: Sodium Chloride 0.9% 100 ML BAG 100 ML ONE (20:47)
[2020-12-30] MEDS ORDERED: HUMULIN R ONE (20:47)
[2020-12-30] MEDS: Sodium Chloride 0.9% 1000 ML 1,000 ML IV SCH (23:42)
[2020-12-31] MEDS ORDERED: TYLENOL 325 MG PO PRN (01:22)
[2020-12-31] MEDS ORDERED: DUONEB 0.5-3 MG/3 ml Neb IH PRN (01:22)
[2020-12-31] MEDS: Magnesium 1 Gm / 100 Ml D5W*** 100 ML IV SCH ×2 (02:23→02:46)
[2020-12-31 02:28] LABS: ANION GAP 16.9 MEQ/L (5-15); BLOOD UREA NITROGEN 18 mg/dL (7-17); CHLORIDE 105 mmol/L (98-107); Calcium 9.5 mg/dL (8.4-10.2); Carbon Dioxide 17 mmol/L (22-30); Creatinine 1 0.81 mg/dL (0.52-1.04); EST GLOMERULAR FILTRATION RATE > 60.0 ML/MIN; Glucose 343 mg/dL (74-106); Potassium 4.9 mmol/L (3.5-5.1); SODIUM 134 mmol/L (137-145)
[2020-12-31] MEDS: HUMALOG SQ PRN ×4 (03:19→11:37)
[2020-12-31 06:20] LABS: Absolute Neutrophil Ct (ANC) 8.43 (1.4-6.9); BASOPHIL % 0.3 % (0.0-0.4); Basophil (Absolute #) 0.04 (0-0.4); Eosinophil (Absolute #) 0 (0-0.5); Hematocrit 40.4 % (35-47); Hemoglobin 13.2 gm/dl (12.0-16.0); Lymphocyte (Absolute #) 2.47 (1.0-4.6); Lymphocytes % 21.4 % (24.0-44.0); Mean Cell Volume 93.3 fl (78-100); Mean Corpuscular Hemoglobin 30.5 pg (26-32); Mean Corpuscular Hgb Concent. 32.7 g/dl (32-36); Mean Platelet Volume 10.6 fl (7.5-11.0); Monocyte (Absolute #) 0.58 (0.0-1.3); Neutrophil % 73.3 % (36.0-66.0); Platelet Count 350 K/mm3 (150-450); Red Blood Count 4.33 M/mm3 (4.1-5.4); Red Cell Distribution Width 13.2 % (11.5-14.0); White Blood Count 11.5 K/mm3 (4.0-10.5)
[2020-12-31 06:33] LABS: ANION GAP 19.6 MEQ/L (5-15); BLOOD UREA NITROGEN 16 mg/dL (7-17); CHLORIDE 105 mmol/L (98-107); Calcium 9.9 mg/dL (8.4-10.2); Carbon Dioxide 19 mmol/L (22-30); Creatinine 1 0.78 mg/dL (0.52-1.04); EST GLOMERULAR FILTRATION RATE > 60.0 ML/MIN; Glucose 181 mg/dL (74-106); SODIUM 140 mmol/L (137-145)
[2020-12-31] MEDS: Hydromorphone 1 mg/ml Injection IV PRN ×3 (07:42→22:30)
[2020-12-31] MEDS: Zofran 4 MG/2 ML VIAL IV PRN ×5 (07:43→23:21)
[2020-12-31] MEDS: D5W/0.45NS W/ 20mEq KCl 1000 ML 1,000 ML IV SCH ×3 (07:46→22:16)
--- NOTE | 2020-12-31 08:51 | XRAY ---
Indication: Abdomen pain, nausea, and vomiting. Multiple contiguous axial images obtained through the abdomen and pelvis without contrast. Comparison: September 29, 2020. Lung bases again demonstrates minimal fibrosis/scarring. No infiltrate or effusion. Heart is not enlarged. Noncontrasted stomach and bowel loops remain nonobstructed with normal appendix. Stable tiny left lobe hepatic hemangioma and cholecystectomy. No free fluid/air. Remaining liver, pancreas, spleen, adrenal glands, kidneys, ureters, bladder, and uterus are unremarkable for noncontrast exam. Again minimal aortic calcifications without aneurysm. Impression: 1. Stable hepatic hemangioma. 2. Remaining CT abdomen/pelvis without contrast exam is negative. Comment: Preliminary interpretation made by [facility]. No critical discrepancy.
[2020-12-31] MEDS: PROTONIX 40 MG IV IV SCH (10:13)
[2020-12-31 10:16] LABS: ANION GAP 21.3 MEQ/L (5-15); BLOOD UREA NITROGEN 14 mg/dL (7-17); CHLORIDE 104 mmol/L (98-107); Calcium 9.9 mg/dL (8.4-10.2); Carbon Dioxide 19 mmol/L (22-30); Creatinine 1 0.67 mg/dL (0.52-1.04); EST GLOMERULAR FILTRATION RATE > 60.0 ML/MIN; Glucose 247 mg/dL (74-106); Potassium 4.7 mmol/L (3.5-5.1); SODIUM 139 mmol/L (137-145)
[2020-12-31] MEDS ORDERED: HUMULIN R 100 UNIT in Sodium Chloride 0.9% 100 ML BAG 100 ML IV PRN (12:49)
[2020-12-31 14:08] LABS: ANION GAP 20.8 MEQ/L (5-15); BLOOD UREA NITROGEN 11 mg/dL (7-17); CHLORIDE 104 mmol/L (98-107); Calcium 9.9 mg/dL (8.4-10.2); Carbon Dioxide 18 mmol/L (22-30); Creatinine 1 0.65 mg/dL (0.52-1.04); EST GLOMERULAR FILTRATION RATE > 60.0 ML/MIN; Glucose 252 mg/dL (74-106); Potassium 4.4 mmol/L (3.5-5.1); SODIUM 138 mmol/L (137-145)
[2020-12-31 17:35] LABS: BLOOD UREA NITROGEN 11 mg/dL (7-17); CHLORIDE 105 mmol/L (98-107); Calcium 9.3 mg/dL (8.4-10.2); Carbon Dioxide 21 mmol/L (22-30); Creatinine 1 0.62 mg/dL (0.52-1.04); EST GLOMERULAR FILTRATION RATE > 60.0 ML/MIN; Glucose 179 mg/dL (74-106); Potassium 4.9 mmol/L (3.5-5.1); SODIUM 136 mmol/L (137-145)
[2020-12-31 21:54] LABS: ANION GAP 12.3 MEQ/L (5-15); BLOOD UREA NITROGEN 10 mg/dL (7-17); CHLORIDE 104 mmol/L (98-107); Calcium 9.3 mg/dL (8.4-10.2); Carbon Dioxide 22 mmol/L (22-30); EST GLOMERULAR FILTRATION RATE > 60.0 ML/MIN; Glucose 126 mg/dL (74-106); Potassium 3.8 mmol/L (3.5-5.1); SODIUM 135 mmol/L (137-145)
[2020-12-31] MEDS ORDERED: Hydromorphone 1 mg/ml Injection ONE (22:26)
[2021-01-01] MEDS: HUMALOG SQ PRN ×6 (00:27→19:57)
[2021-01-01] MEDS: Sodium Chloride 0.9% 1000 ML 1,000 ML IV SCH ×3 (00:43→19:45)
[2021-01-01] MEDS: Zofran 4 MG/2 ML VIAL IV PRN ×4 (03:27→15:30)
[2021-01-01 04:56] LABS: ALBUMIN 3.3 g/dL (3.5-5.0); ALKALINE PHOSPHATASE 94 U/L (38-126); ANION GAP 13.7 MEQ/L (5-15); BLOOD UREA NITROGEN 9 mg/dL (7-17); CHLORIDE 103 mmol/L (98-107); Calcium 9.2 mg/dL (8.4-10.2); Carbon Dioxide 20 mmol/L (22-30); Creatinine 1 0.59 mg/dL (0.52-1.04); EST GLOMERULAR FILTRATION RATE > 60.0 ML/MIN; Glucose 269 mg/dL (74-106); Potassium 4.4 mmol/L (3.5-5.1); SGOT/AST 19 U/L (14-36); SGPT/ALT 9 U/L (0-35); SODIUM 132 mmol/L (137-145)
[2021-01-01] MEDS ORDERED: Hydromorphone 1 mg/ml Injection ONE (05:08)
[2021-01-01] MEDS: Hydromorphone 1 mg/ml Injection IV PRN ×5 (05:22→23:51)
[2021-01-01 06:44] LABS: Absolute Neutrophil Ct (ANC) 10.87 (1.4-6.9); BASOPHIL % 0.3 % (0.0-0.4); Basophil (Absolute #) 0.04 (0-0.4); Eosinophil % 0.1 % (0.00-5.0); Eosinophil (Absolute #) 0.02 (0-0.5); Hematocrit 39.1 % (35-47); Hemoglobin 12.8 gm/dl (12.0-16.0); Lymphocyte (Absolute #) 2.81 (1.0-4.6); Lymphocytes % 19.4 % (24.0-44.0); Mean Cell Volume 93.8 fl (78-100); Mean Corpuscular Hemoglobin 30.7 pg (26-32); Mean Corpuscular Hgb Concent. 32.7 g/dl (32-36); Mean Platelet Volume 10.4 fl (7.5-11.0); Monocyte (Absolute #) 0.74 (0.0-1.3); Monocytes % 5.1 % (0.0-12.0); Neutrophil % 75.1 % (36.0-66.0); Platelet Count 284 K/mm3 (150-450); Red Blood Count 4.17 M/mm3 (4.1-5.4); White Blood Count 14.5 K/mm3 (4.0-10.5)
[2021-01-01] MEDS: PROTONIX 40 MG IV IV SCH (08:03)
[2021-01-01] MEDS ORDERED: HUMULIN R 100 UNIT in Sodium Chloride 0.9% 100 ML BAG 100 ML IV PRN ×2 (09:32→11:12)
--- NOTE | 2021-01-01 13:23 | HP ---
CHIEF COMPLAINT: Vomiting in a patient with diabetes. HISTORY OF PRESENT ILLNESS: The patient is a 35-year-old white female with diabetes mellitus type I, who has had admission several times for diabetic ketoacidosis. It appears that she is having this issue once again. She was admitted to the hospital for IV fluids, insulin drip. PAST MEDICAL/SURGICAL HISTORY: Again significant for the diabetes mellitus type I. She has had really no other surgical issues or medical issues otherwise. She did have some pancreatitis in the past from the same issue. She has a history of anxiety and depression. She had gallbladder removed in August 2020. HOME MEDICATIONS: Insulin she takes 14 units subcu a.c. and Glargine Insulin 34 units at night. She is on Depo-Provera as her only other medication. ALLERGIES: NKDA. PHYSICAL EXAMINATION: The patient's vital signs on admission showed her temperature to be 97.1F, pulse 129, respiratory rate 18 and blood pressure 159/96. O2 saturation 99%. HEENT: Normocephalic, atraumatic. Pupils equal round reactive to light. Extraocular movements intact. Oropharynx is dry. NECK: Supple without lymphadenopathy, thyromegaly or JVD. CHEST: Clear to auscultation with good air movement bilaterally. HEART: Regular rate and rhythm without murmurs, rubs or gallops and is somewhat tachycardic. ABDOMEN: Diffusely tender through the epigastric region. EXTREMITIES: Without cyanosis, clubbing or edema. NEUROLOGIC: The patient is alert and oriented x3. LAB DATA AND TESTS: The patient's laboratory data in the emergency room revealed her urine to have glucose but otherwise essentially normal specific gravity 1.023. Her venous blood gas showed pH of 7.41 with pCO2 of 20. Her white count was 11.2, hemoglobin 13.0, PLT count 306,000. Her initial glucose was 519. BUN 15, creatinine 0.68. The CO2 at that time was 13. Anion gap of 26.2. Her magnesium was 1.7. COVID test was negative. ASSESSMENT: A patient with diabetic ketoacidosis. She has been admitted for insulin drip, IV fluid rehydration. She is being monitored initially in the ICU due to insulin drip and we will hold her dietary intake presently at NPO until she is able to get rid of the nausea then we will switch her to clear liquid diet and advance as tolerated.
[2021-01-01] MEDS: Compazine 10 MG/2 ML IV PRN ×2 (19:44→23:51)
[2021-01-01 20:01] LABS: AMYLASE 45 U/L (30-110); LIPASE 19 U/L (23-300)
[2021-01-02] MEDS: Hydromorphone 1 mg/ml Injection IV PRN ×3 (04:41→19:54)
[2021-01-02] MEDS: Compazine 10 MG/2 ML IV PRN ×3 (04:41→19:53)
[2021-01-02] MEDS: HUMALOG SQ PRN ×7 (04:43→23:59)
[2021-01-02] MEDS: Sodium Chloride 0.9% 1000 ML 1,000 ML IV SCH ×2 (04:52→11:13)
[2021-01-02 05:47] LABS: Absolute Neutrophil Ct (ANC) 5.46 (1.4-6.9); BASOPHIL % 0.5 % (0.0-0.4); Basophil (Absolute #) 0.05 (0-0.4); Eosinophil % 0.7 % (0.00-5.0); Eosinophil (Absolute #) 0.07 (0-0.5); Hematocrit 39.4 % (35-47); Hemoglobin 12.8 gm/dl (12.0-16.0); Lymphocyte (Absolute #) 3.89 (1.0-4.6); Lymphocytes % 38.4 % (24.0-44.0); Mean Cell Volume 93.8 fl (78-100); Mean Corpuscular Hemoglobin 30.5 pg (26-32); Mean Corpuscular Hgb Concent. 32.5 g/dl (32-36); Mean Platelet Volume 10.3 fl (7.5-11.0); Monocyte (Absolute #) 0.65 (0.0-1.3); Monocytes % 6.4 % (0.0-12.0); Platelet Count 275 K/mm3 (150-450); Red Cell Distribution Width 13.1 % (11.5-14.0); White Blood Count 10.1 K/mm3 (4.0-10.5)
[2021-01-02 06:11] LABS: ALBUMIN 3.3 g/dL (3.5-5.0); ALKALINE PHOSPHATASE 85 U/L (38-126); ANION GAP 13.4 MEQ/L (5-15); BLOOD UREA NITROGEN 15 mg/dL (7-17); CHLORIDE 103 mmol/L (98-107); Calcium 8.6 mg/dL (8.4-10.2); Carbon Dioxide 21 mmol/L (22-30); Creatinine 1 0.86 mg/dL (0.52-1.04); EST GLOMERULAR FILTRATION RATE > 60.0 ML/MIN; Glucose 196 mg/dL (74-106); SGOT/AST 18 U/L (14-36); SGPT/ALT 8 U/L (0-35); SODIUM 134 mmol/L (137-145); Total Protein 6.1 g/dL (6.3-8.2)
[2021-01-02] MEDS: HYDROCODONE-ACETAMIN 10-325 MG PO PRN ×2 (08:02→15:09)
[2021-01-02] MEDS: Zofran 4 MG/2 ML VIAL IV PRN (08:11)
[2021-01-02] MEDS: PROTONIX 40 MG IV IV SCH (10:46)
[2021-01-03] MEDS: Compazine 10 MG/2 ML IV PRN ×3 (00:01→16:16)
[2021-01-03] MEDS: HUMALOG SQ PRN ×5 (04:14→20:22)
[2021-01-03] MEDS: Hydromorphone 1 mg/ml Injection IV PRN ×2 (04:16→11:19)
[2021-01-03] MEDS: Sodium Chloride 0.9% 1000 ML 1,000 ML IV SCH (04:24)
[2021-01-03 05:45] LABS: Hematocrit 37.6 % (35-47); Hemoglobin 12.2 gm/dl (12.0-16.0); Mean Cell Volume 94.9 fl (78-100); Mean Corpuscular Hemoglobin 30.8 pg (26-32); Mean Corpuscular Hgb Concent. 32.4 g/dl (32-36); Mean Platelet Volume 10.3 fl (7.5-11.0); Platelet Count 252 K/mm3 (150-450); Red Blood Count 3.96 M/mm3 (4.1-5.4); White Blood Count 8.7 K/mm3 (4.0-10.5)
[2021-01-03 06:06] LABS: ALBUMIN 3.2 g/dL (3.5-5.0); ALKALINE PHOSPHATASE 73 U/L (38-126); ANION GAP 13.7 MEQ/L (5-15); BLOOD UREA NITROGEN 13 mg/dL (7-17); CHLORIDE 105 mmol/L (98-107); Calcium 8.4 mg/dL (8.4-10.2); Carbon Dioxide 21 mmol/L (22-30); Creatinine 1 0.61 mg/dL (0.52-1.04); EST GLOMERULAR FILTRATION RATE > 60.0 ML/MIN; Glucose 157 mg/dL (74-106); Potassium 3.5 mmol/L (3.5-5.1); SGOT/AST 20 U/L (14-36); SGPT/ALT 15 U/L (0-35); SODIUM 136 mmol/L (137-145)
[2021-01-03] MEDS: HYDROCODONE-ACETAMIN 10-325 MG PO PRN ×4 (08:45→20:18)
[2021-01-03] MEDS: PROTONIX 40 MG IV IV SCH (08:45)
[2021-01-03] MEDS: Zofran 4 MG/2 ML VIAL IV PRN (11:19)
[2021-01-03 15:15] VITALS: BP 102/51; PULSE 107; O2SAT 94
--- NOTE | 2021-01-03 16:48 | PCM.NOTE ---
Date and Time: 01/03/21 8927 OBJECTIVE DATA Vital Signs: Vital Signs - 24 hr Temp Pulse Resp BP Pulse Ox 01/03/21 12:00 98.5 F 107 H 16 102/51 94 L 01/03/21 07:49 97.5 F 104 H 16 92/54 97 01/03/21 05:00 18 01/03/21 04:00 97.8 F 94 H 18 121/64 95 01/03/21 01:00 16 01/02/21 23:50 98.4 F 88 16 97/48 97 01/02/21 21:00 16 01/02/21 19:49 98.4 F 94 H 16 127/63 99 Pain Assessment - Last Documented Pain Intensity 6 Pain Scale Used 0-10 Pain Scale Intake and Output: Intake & Output 01/01/21 01/02/21 01/03/21 01/04/21 11:59 11:59 11:59 11:59 Intake Total 3219 4714 3603 Output Total 300 Balance 3219 4725 3303 Weight 62 kg 66.5 kg 67.8 kg Lab Results: Lab Results-Last 24 Hours 01/02/21 01/02/21 01/03/21 Range/Units 20:45 23:33 04:04 WBC (4.0-10.5) K/mm3 RBC (4.1-5.4) M/mm3 Hgb (12.0-16.0) gm/dl Hct (35-47) % MCV (78-100) fl MCH (26-32) pg MCHC (32-36) g/dl RDW (11.5-14.0) % Plt Count (150-450) K/mm3 MPV (7.5-11.0) fl Sodium (137-145) mmol/L Potassium (3.5-5.1) mmol/L Chloride (98-107) mmol/L Carbon Dioxide (22-30) mmol/L Anion Gap (5-15) MEQ/L BUN (7-17) mg/dL Creatinine (0.52-1.04) mg/dL Estimated GFR ML/MIN Glucose (74-106) mg/dL POC Glucometer 182 H 225 H 195 H (74 to 106) mg/dL Calcium (8.4-10.2) mg/dL Total Bilirubin (0.2-1.3) mg/dL AST (14-36) U/L ALT (0-35) U/L Alkaline Phosphatase (38-126) U/L Serum Total Protein (6.3-8.2) g/dL Albumin (3.5-5.0) g/dL 01/03/21 01/03/21 01/03/21 Range/Units 05:02 05:02 07:13 WBC 8.7 (4.0-10.5) K/mm3 RBC 3.96 L (4.1-5.4) M/mm3 Hgb 12.2 (12.0-16.0) gm/dl Hct 37.6 (35-47) % MCV 94.9 (78-100) fl MCH 30.8 (26-32) pg MCHC 32.4 (32-36) g/dl RDW 13.0 (11.5-14.0) % Plt Count 252 (150-450) K/mm3 MPV 10.3 (7.5-11.0) fl Sodium 136 L (137-145) mmol/L Potassium 3.5 (3.5-5.1) mmol/L Chloride 105 (98-107) mmol/L Carbon Dioxide 21 L (22-30) mmol/L Anion Gap 13.7 (5-15) MEQ/L BUN 13 (7-17) mg/dL Creatinine 0.61 (0.52-1.04) mg/dL Estimated GFR > 60.0 ML/MIN Glucose 157 H (74-106) mg/dL POC Glucometer 230 H (74 to 106) mg/dL Calcium 8.4 (8.4-10.2) mg/dL Total Bilirubin 0.40 (0.2-1.3) mg/dL AST 20 (14-36) U/L ALT 15 (0-35) U/L Alkaline Phosphatase 73 (38-126) U/L Serum Total Protein 6.0 L (6.3-8.2) g/dL Albumin 3.2 L (3.5-5.0) g/dL 01/03/21 01/03/21 01/03/21 Range/Units 11:32 15:16 16:26 WBC (4.0-10.5) K/mm3 RBC (4.1-5.4) M/mm3 Hgb (12.0-16.0) gm/dl Hct (35-47) % MCV (78-100) fl MCH (26-32) pg MCHC (32-36) g/dl RDW (11.5-14.0) % Plt Count (150-450) K/mm3 MPV (7.5-11.0) fl Sodium (137-145) mmol/L Potassium (3.5-5.1) mmol/L Chloride (98-107) mmol/L Carbon Dioxide (22-30) mmol/L Anion Gap (5-15) MEQ/L BUN (7-17) mg/dL Creatinine (0.52-1.04) mg/dL Estimated GFR ML/MIN Glucose (74-106) mg/dL POC Glucometer 351 H 290 H 254 H (74 to 106) mg/dL Calcium (8.4-10.2) mg/dL Total Bilirubin (0.2-1.3) mg/dL AST (14-36) U/L ALT (0-35) U/L Alkaline Phosphatase (38-126) U/L Serum Total Protein (6.3-8.2) g/dL Albumin (3.5-5.0) g/dL Multi-Disciplinary Progress Notes: Multi-Disciplinary Progress Notes 01/03/21 11:49 Case Management Note by Beti Contreras REVIEWED CHART- NO CHANGE IN DC PLANS AT THIS TIME Initialized on 01/03/21 11:49 - END OF NOTE
[2021-01-03] MEDS ORDERED: Lantus Insulin SQ SCH ×2 (18:00)
[2021-01-03] MEDS: PHENERGAN 25 MG PO PRN (19:39)
[2021-01-04] MEDS: HYDROCODONE-ACETAMIN 10-325 MG PO PRN ×3 (01:04→09:44)
[2021-01-04] MEDS: HUMALOG SQ PRN ×2 (01:04→08:47)
[2021-01-04] MEDS: PHENERGAN 25 MG PO PRN ×2 (01:04→05:14)
[2021-01-04] MEDS ORDERED: PHENERGAN 25 MG PO PRN (07:30)
[2021-01-04] MEDS ORDERED: Protonix 40MG Tablet PO SCH (10:00)
== END 2021-01-04 10:28 | disposition home or self-care (01) ==
LOC: ED 17:08 → ICU 12-31 01:19 → MED SURG 01-01 17:40
PROVIDERS: ADMIT Family Medicine; ATTEND Family Medicine
DX: E10.10 Type 1 diabetes mellitus with ketoacidosis without coma (principal); R11.2 Nausea with vomiting, unspecified; R19.7 Diarrhea, unspecified; R10.84 Generalized abdominal pain; F17.200 Nicotine dependence, unspecified, uncomplicated; F41.9 Anxiety disorder, unspecified; F32.9 Major depressive disorder, single episode, unspecified; Z79.899 Other long term (current) drug therapy; Z20.828 Contact with and (suspected) exposure to other viral communicable diseases
CPT/HCPCS: 36000; 36415; 36600; 74176; 80048; 80053; 81001; 82150; 82375; 82803; 82947; 83036; 83690; 83735; 85025; 85027; 93268; 96360; 96374; 96375; 96376; 99285; G0378; U0003; J1170; J1815; J1817; J2405; J3010; J3475; A9270-GY

== ENCOUNTER 2021-08-20 20:02 | Emergency (ER) | payer OTHER ==
[2021-08-20] MEDS ORDERED: Sodium Chloride 0.9% 1000 ML 1,000 ML IV STA ×2 (20:31→22:06)
[2021-08-20] MEDS ORDERED: Sodium Chloride 0.9% 1000 ML 1,000 ML ONE ×2 (20:39→22:22)
[2021-08-20] MEDS ORDERED: Zofran 4 MG/2 ML VIAL IV ONE (20:51)
[2021-08-20] MEDS ORDERED: Zofran 4 MG/2 ML VIAL ONE (20:51)
[2021-08-20] MEDS ORDERED: SUBLIMAZE 100 MCG/2 ML IV ONE ×2 (20:51→21:49)
[2021-08-20] MEDS ORDERED: SUBLIMAZE 100 MCG/2 ML ONE ×2 (20:52→21:52)
[2021-08-20 21:20] LABS: A-aADO2 -11; ABG HEMOGLOBIN 13.4; ABG POTASSIUM 4.3 (3.5-5.1); ARTERIAL BLD GAS O2 SATURATION 99.3 % (95-100); ARTERIAL BLOOD GAS BASE EXCESS -0.8 (-2.0-2.0); ARTERIAL BLOOD GAS FIO2 21 %; ARTERIAL BLOOD GAS PCO2 29 mmHg (35-45); ARTERIAL BLOOD GAS PO2 124 mmHg (75-100); ARTERIAL BLOOD GAS pH 7.48 (7.35-7.45); CARBOXYHEMOGLOBIN 7.4 % THgb (0.0-6.9); HCO3- 21.6 (22-28); HGB O2 SAT 90.9 g/dF (94-100); Methhemoglobin 1.1 % (1.4-1.5)
[2021-08-20 21:20] LABS: Absolute Neutrophil Ct (ANC) 6.22 x10^3/uL (1.4-6.9); Basophil (Absolute #) 0.07 x10^3/uL (0-0.4); Eosinophil % 0.6 % (0.00-5.0); Eosinophil (Absolute #) 0.06 x10^3/uL (0-0.5); Hematocrit 36.6 % (35-47); Hemoglobin 12.5 g/dL (12.0-16.0); Lymphocyte (Absolute #) 3.56 x10^3/uL (1.0-4.6); Lymphocytes % 33.7 % (24.0-44.0); Mean Cell Volume 91.7 fL (78-100); Mean Corpuscular Hemoglobin 31.3 pg (26-32); Mean Corpuscular Hgb Concent. 34.2 g/dL (32-36); Mean Platelet Volume 9.6 fL (7.5-11.0); Monocyte (Absolute #) 0.61 x10^3/uL (0.0-1.3); Monocytes % 5.8 % (0.0-12.0); Neutrophil % 58.9 % (36.0-66.0); Platelet Count 292 x10^3/uL (150-450); Red Blood Count 3.99 x10^6/uL (4.1-5.4); Red Cell Distribution Width 12.9 % (11.5-14.0); White Blood Count 10.6 x10^3/uL (4.0-10.5)
[2021-08-20 21:21] LABS: ABG SITE RIGHT RADIAL; ALLEN TEST OK? YES
[2021-08-20 21:24] LABS: Appearance SLIGHTLY CLOUDY (CLEAR); Bilirubin SMALL (NEGATIVE); Glucose 500 mg/dL (NEGATIVE)
[2021-08-20 21:25] LABS: Dipstick done @ ? MAIN LAB; Ketones SMALL-15 (NEGATIVE); Nitrite NEGATIVE (NEGATIVE); Ph 5.5 (5-6); Protein,Urine Dip >=300 (Negative); RBC SMALL Ery/ul (0-5); Specific Gravity >=1.030 (1.005-1.025); Urobilinogen 0.2 mg/dL (0-1)
[2021-08-20 21:26] LABS: Bacteria NONE SEEN /HPF (NEGATIVE); Epithelial Cells FEW /HPF (FEW); Mucus SLIGHT /HPF (NEGATIVE); RBC 0-2 /HPF (0-2); WBC 0-2 /HPF (0-5)
[2021-08-20 21:27] LABS: Urine Cultured Indicated? YES
[2021-08-20 21:34] LABS: ALBUMIN 3.5 g/dL (3.5-5.0); ALKALINE PHOSPHATASE 107 U/L (38-126); ANION GAP 13.2 MEQ/L (5-15); BLOOD UREA NITROGEN 16 mg/dL (7-17); CHLORIDE 102 mmol/L (98-107); Calcium 8.7 mg/dL (8.4-10.2); Carbon Dioxide 22 mmol/L (22-30); Creatinine 1 0.83 mg/dL (0.52-1.04); EST GLOMERULAR FILTRATION RATE > 60.0 ML/MIN; Glucose 325 mg/dL (74-106); Potassium 4.3 mmol/L (3.5-5.1); SGOT/AST 24 U/L (14-36); SGPT/ALT 14 U/L (0-35); SODIUM 133 mmol/L (137-145); Total Protein 6.5 g/dL (6.3-8.2)
[2021-08-20] MEDS ORDERED: HUMULIN R IV ONE (21:48)
[2021-08-20] MEDS ORDERED: HUMULIN R ONE (21:51)
[2021-08-20 21:58] LABS: INFLUENZA A NEGATIVE (NEGATIVE); INFLUENZA B NEGATIVE (NEGATIVE); RESPIRATORY SYNCTIAL VIRUS NEGATIVE (Negative); SARS-CoV-2 Xpert Express NEGATIVE (NEGATIVE)
--- NOTE | 2021-08-20 23:13 | ERPHSYRPT ---
- History of Present Illness Time Seen by Provider: 08/20/21 21:10 Patient Subjective Stated Complaint: feeling unwell for two days, states she has been feeling like shes going into DKA. feels dehydrated. blood sugar is 244 at this time. Triage Nursing Assessment: pt is alert and oriented, states pain generally at 9/10 Physician History: Patient is a 36-year-old female who has high blood sugar has been feeling unwell for 2 days her blood sugar has been greater than 3 at home she took 10 units of rapid acting insulin and it was down to 249. She has had generalized aches and pains and feels like she is dehydrated. Timing/Duration: today Severity: moderate Modifying Factors: Improves With: movement Associated Symptoms: nausea, vomiting, abdominal pain Allergies/Adverse Reactions: No Known Drug Allergies Allergy (Verified 08/20/21 20:33) Home Medications: Medroxyprogesterone Acetate [Depo-Provera] 150 mg IM Q90D 09/10/19 [History] Insulin Aspart (Niacinamide) [Fiasp 100 Unit/ml Flextouch] 14 units SQ AC 07/03/20 [History] Insulin Glargine,Hum.rec.anlog [Toujeo Solostar] 34 units SQ HS 07/04/20 [His tory] Hx Tetanus, Diphtheria Vaccination/Date Given: No Hx Influenza Vaccination/Date Given: No Hx Pneumococcal Vaccination/Date Given: No Travel Risk - International Travel Have you traveled outside of the country in past 3 weeks: No - Coronavirus Screening Are you exhibiting any of the following symptoms?: No Close contact with a COVID-19 positive Pt in past 14-21 Days: No - Vaccine Status Have you recieved a Covid-19 vaccination: No - Review of Systems Constitutional: No Fever, No Chills Eyes: No Symptoms Ears, Nose, & Throat: No Symptoms Respiratory: No Cough, No Dyspnea Cardiac: No Chest Pain, No Edema, No Syncope Abdominal/Gastrointestinal: No Abdominal Pain, No Nausea, No Vomiting, No Diarrhea Genitourinary Symptoms: No Dysuria Musculoskeletal: Arthralgias, Myalgias, No Back Pain, No Neck Pain Skin: No Rash Neurological: No Dizziness, No Focal Weakness, No Sensory Changes Psychological: No Symptoms Endocrine: No Symptoms All Other Systems: Reviewed and Negative - Past Medical History Pertinent Past Medical History: Yes Neurological History: Peripheral Neuropathy ENT History: No Pertinent History Cardiac History: No Pertinent History Respiratory History: No Pertinent History Endocrine Medical History: Diabetes Type I Musculoskeletal History: Arthritis, Fibromyalgia GI Medical History: Pancreatitis History: No Pertinent History Psycho-Social History: Anxiety, Depression Female Reproductive Disorders: No Pertinent History Other Medical History: gallbladder out september 13, 2020 - Past Surgical History Past Surgical History: Yes Neuro Surgical History: No Pertinent History Cardiac: No Pertinent History Respiratory: No Pertinent History Gastrointestinal: Cholecystectomy Genitourinary: No Pertinent History Musculoskeletal: No Pertinent History Female Surgical History: Dilation & Curettage, Section Other Surgical History: cs x2. hayden - Social History Smoking Status: Current every day smoker How long have you smoked: 22 years Exposure to second hand smoke: Yes Alcohol Use: None Drug Use: none Patient Lives Alone: No Significant Family History: heart disease, diabetes - Female History Hx Last Menstrual Period: depo shots Hx Now: No - Nursing Vital Signs Nursing Vital Signs: Initial Vital Signs Pulse Rate 104 H 08/20/21 21:02 Respiratory Rate 18 08/20/21 21:02 O2 Sat by Pulse Oximetry 99 08/20/21 21:02 Pain Scale Pain Intensity 8 - Physical Exam General Appearance: no apparent distress, alert Eye Exam: PERRL/EOMI, eyes nml inspection Ears, Nose, Throat Exam: normal ENT inspection, TMs normal, pharynx normal, moist mucous membranes Neck Exam: normal inspection, non-tender, supple, full range of motion Respiratory Exam: normal breath sounds, lungs clear, No respiratory distress Cardiovascular Exam: regular rate/rhythm, normal heart sounds, normal peripheral pulses Gastrointestinal/Abdomen Exam: soft, normal bowel sounds, No tenderness, No mass Back Exam: normal inspection, normal range of motion, No CVA tenderness, No vertebral tenderness Extremity Exam: normal inspection, normal range of motion, pelvis stable Neurologic Exam: alert, oriented x 3, cooperative, normal mood/affect, nml cerebellar function, nml station & gait, sensation nml, No motor deficits Skin Exam: normal color, warm, dry, No rash Lymphatic Exam: No adenopathy SpO2: 99 - Course Nursing assessment & vital signs reviewed: Yes EKG Interpreted by Me: RATE (102), Sinus Tach, Other (Posterior GRS axis probable anteroseptal infarct old borderline ST elevation in the lateral leads) - Radiology Exams Chest X-ray Interpretation: Interpreted by me, Negative Ordered Tests: Active Orders 24 hr Category Date Time Status EKG-ER Only STAT Care 08/20/21 20:31 Active IV Insertion STAT Care 08/20/21 20:43 Active POCT Glucose Check STAT Care 08/20/21 20:34 Active CHEST 1 VIEW (PORTABLE) Stat Exams 08/20/21 20:31 Taken ARTERIAL BLOOD GASES Routine Lab 08/20/21 21:11 Completed CBC W DIFF Stat Lab 08/20/21 21:05 Completed CMP Stat Lab 08/20/21 21:05 Completed CULTURE,URINE Stat Lab 08/20/21 20:44 Received Lactic Acid Urgent Lab 08/20/21 21:11 Completed MAGNESIUM Stat Lab 08/20/21 21:05 Completed POCT GLUCOSE Stat Lab 08/20/21 20:31 Completed POCT GLUCOSE Stat Lab 08/20/21 22:19 Completed TROPONIN Q3H Lab 08/20/21 21:05 Completed TROPONIN Q3H Lab 08/20/21 23:45 Ordered UA W/RFX CULTURE Stat Lab 08/20/21 20:44 Completed Medication Summary Discontinued Medications Generic Name Dose Route Start Last Admin Trade Name Chaim PRN Reason Stop Dose Admin Fentanyl Citrate 100 mcg 08/20/21 20:51 08/20/21 20:54 Fentanyl Citrate 100 Mcg/2 Ml* Vial IV 08/20/21 20:52 100 mcg STAT ONE Administration Fentanyl Citrate Confirm 08/20/21 20:52 Fentanyl Citrate 100 Mcg/2 Ml* Vial Administered 08/20/21 20:53 Dose 100 mcg .ROUTE .STK-MED ONE Fentanyl Citrate 100 mcg 08/20/21 21:49 08/20/21 21:52 Fentanyl Citrate 100 Mcg/2 Ml* Vial IV 08/20/21 21:50 100 mcg STAT ONE Administration Fentanyl Citrate Confirm 08/20/21 21:52 Fentanyl Citrate 100 Mcg/2 Ml* Vial Administered 08/20/21 21:53 Dose 100 mcg .ROUTE .STK-MED ONE Sodium Chloride 1,000 mls @ 999 mls/hr 08/20/21 20:31 08/20/21 21:41 Sodium Chloride 0.9% 1000 Ml IV 08/20/21 21:31 Infused .Q1H1M STA Infusion Sodium Chloride Confirm 08/20/21 20:39 Sodium Chloride 0.9% 1000 Ml Administered 08/20/21 20:40 Dose 1,000 mls @ ud .ROUTE .STK-MED ONE Sodium Chloride 1,000 mls @ 999 mls/hr 08/20/21 22:06 08/20/21 22:25 Sodium Chloride 0.9% 1000 Ml IV 08/20/21 23:06 999 mls/hr .Q1H1M STA Administration Sodium Chloride Confirm 08/20/21 22:22 Sodium Chloride 0.9% 1000 Ml Administered 08/20/21 22:23 Dose 1,000 mls @ ud .ROUTE .STK-MED ONE Insulin Human Regular 5 unit 08/20/21 21:48 08/20/21 21:51 Insulin Regular, Human 1 Unit IV 08/20/21 21:49 5 unit STAT ONE Administration Insulin Human Regular Confirm 08/20/21 21:51 Insulin Regular, Human 1 Unit Administered 08/20/21 21:52 Dose 5 unit .ROUTE .STK-MED ONE Ondansetron HCl 4 mg 08/20/21 20:51 08/20/21 20:54 Ondansetron Hcl 4 Mg/2 Ml Vial IV 08/20/21 20:52 4 mg STAT ONE Administration Ondansetron HCl Confirm 08/20/21 20:51 Ondansetron Hcl 4 Mg/2 Ml Vial Administered 08/20/21 20:52 Dose 4 mg .ROUTE .STK-MED ONE Lab/Rad Data: Laboratory Result Diagrams 08/20/21 21:05 08/20/21 21:05 Laboratory Results 08/20/21 08/20/21 08/20/21 Range/Units 22:19 21:20 21:20 WBC (4.0-10.5) x10^3/uL RBC (4.1-5.4) x10^6/uL Hgb (12.0-16.0) g/dL Hct (35-47) % MCV (78-100) fL MCH (26-32) pg MCHC (32-36) g/dL RDW (11.5-14.0) % Plt Count (150-450) x10^3/uL MPV (7.5-11.0) fL Gran % (36.0-66.0) % Immature Gran % (Auto) (0.00-0.4) % Nucleat RBC Rel Count (0.00-0.1) % Eos # (Auto) (0-0.5) x10^3/uL Immature Gran # (Auto) (0.00-0.03) x10^3u/L Absolute Lymphs (auto) (1.0-4.6) x10^3/uL Absolute Monos (auto) (0.0-1.3) x10^3/uL Absolute Nucleated RBC (0.00-0.01) x10^3u/L Lymphocytes % (24.0-44.0) % Monocytes % (0.0-12.0) % Eosinophils % (0.00-5.0) % Basophils % (0.0-0.4) % Absolute Granulocytes (1.4-6.9) x10^3/uL Basophils # (0-0.4) x10^3/uL Puncture Site pCO2 (35-45) mmHg pO2 (75-100) mmHg Base Excess (-2.0-2.0) O2 Saturation (94-100) g/dF ABG pH (7.35-7.45) ABG HCO3 (22-28) ABG O2 Sat (Measured) (95-100) % Graham Test A-a Gradient a/A Ratio Hemoglobin Carboxyhemoglobin (0.0-6.9) % THgb Methemoglobin (1.4-1.5) % Temperature C POC O2 Flow Rate % Sodium (137-145) mmol/L Potassium (3.5-5.1) mmol/L Chloride (98-107) mmol/L Carbon Dioxide (22-30) mmol/L Anion Gap (5-15) MEQ/L BUN (7-17) mg/dL Creatinine (0.52-1.04) mg/dL Estimated GFR ML/MIN Glucose (74-106) mg/dL POC Glucometer 284 H (74 to 106) mg/dL Lactic Acid (0.4-2.0) Calcium (8.4-10.2) mg/dL Magnesium (1.6-2.3) mg/dL Total Bilirubin (0.2-1.3) mg/dL AST (14-36) U/L ALT (0-35) U/L Alkaline Phosphatase (38-126) U/L Troponin I (0.000-0.034) ng/mL Serum Total Protein (6.3-8.2) g/dL Albumin (3.5-5.0) g/dL Urinalys Dipstick Clnc Urine Color (YELLOW) Urine Appearance (CLEAR) Urine pH (5-6) Ur Specific [place] (1.005-1.025) POC Urine Protein Conf (Negative) Urine Ketones (NEGATIVE) Urine Nitrite (NEGATIVE) Urine Bilirubin (NEGATIVE) Urine Urobilinogen (0-1) mg/dL Urine Leukocytes (NEGATIVE) Urine WBC (Auto) (0-5) /HPF Urine RBC (Auto) (0-2) /HPF U Hyaline Cast (Auto) (0-2) /LPF U Epithel Cells (Auto) (FEW) /HPF Urine Bacteria (Auto) (NEGATIVE) /HPF Urine RBC (0-5) Rodney/ul Urine Mucus (Auto) (NEGATIVE) /HPF Ur Culture Indicated? Urine Glucose (NEGATIVE) mg/dL Influenza Type A Ag NEGATIVE (NEGATIVE) Influenza Type B Ag NEGATIVE (NEGATIVE) RSV (PCR) NEGATIVE (Negative) SARS-CoV-2 (PCR) NEGATIVE (NEGATIVE) Group A Strep Antibody NOT DETECTED (NEGATIVE) 08/20/21 08/20/21 08/20/21 Range/Units 21:11 21:11 21:05 WBC (4.0-10.5) x10^3/uL RBC (4.1-5.4) x10^6/uL Hgb (12.0-16.0) g/dL Hct (35-47) % MCV (78-100) fL MCH (26-32) pg MCHC (32-36) g/dL RDW (11.5-14.0) % Plt Count (150-450) x10^3/uL MPV (7.5-11.0) fL Gran % (36.0-66.0) % Immature Gran % (Auto) (0.00-0.4) % Nucleat RBC Rel Count (0.00-0.1) % Eos # (Auto) (0-0.5) x10^3/uL Immature Gran # (Auto) (0.00-0.03) x10^3u/L Absolute Lymphs (auto) (1.0-4.6) x10^3/uL Absolute Monos (auto) (0.0-1.3) x10^3/uL Absolute Nucleated RBC (0.00-0.01) x10^3u/L Lymphocytes % (24.0-44.0) % Monocytes % (0.0-12.0) % Eosinophils % (0.00-5.0) % Basophils % (0.0-0.4) % Absolute Granulocytes (1.4-6.9) x10^3/uL Basophils # (0-0.4) x10^3/uL Puncture Site RIGHT RADIAL pCO2 29 L (35-45) mmHg pO2 124 H* (75-100) mmHg Base Excess -0.8 (-2.0-2.0) O2 Saturation 90.9 L (94-100) g/dF ABG pH 7.48 H (7.35-7.45) ABG HCO3 21.6 L (22-28) ABG O2 Sat (Measured) 99.3 (95-100) % Graham Test YES A-a Gradient -11 a/A Ratio 1.10 Hemoglobin 13.4 Carboxyhemoglobin 7.4 H* (0.0-6.9) % THgb Methemoglobin 1.1 L (1.4-1.5) % Temperature 37.0 C POC O2 Flow Rate 21 % Sodium (137-145) mmol/L Potassium 4.3 (3.5-5.1) mmol/L Chloride (98-107) mmol/L Carbon Dioxide (22-30) mmol/L Anion Gap (5-15) MEQ/L BUN (7-17) mg/dL Creatinine (0.52-1.04) mg/dL Estimated GFR ML/MIN Glucose (74-106) mg/dL POC Glucometer (74 to 106) mg/dL Lactic Acid 1.0 (0.4-2.0) Calcium (8.4-10.2) mg/dL Magnesium (1.6-2.3) mg/dL Total Bilirubin (0.2-1.3) mg/dL AST (14-36) U/L ALT (0-35) U/L Alkaline Phosphatase (38-126) U/L Troponin I < 0.012 (0.000-0.034) ng/mL Serum Total Protein (6.3-8.2) g/dL Albumin (3.5-5.0) g/dL Urinalys Dipstick Clnc Urine Color (YELLOW) Urine Appearance (CLEAR) Urine pH (5-6) Ur Specific [place] (1.005-1.025) POC Urine Protein Conf (Negative) Urine Ketones (NEGATIVE) Urine Nitrite (NEGATIVE) Urine Bilirubin (NEGATIVE) Urine Urobilinogen (0-1) mg/dL Urine Leukocytes (NEGATIVE) Urine WBC (Auto) (0-5) /HPF Urine RBC (Auto) (0-2) /HPF U Hyaline Cast (Auto) (0-2) /LPF U Epithel Cells (Auto) (FEW) /HPF Urine Bacteria (Auto) (NEGATIVE) /HPF Urine RBC (0-5) Rodney/ul Urine Mucus (Auto) (NEGATIVE) /HPF Ur Culture Indicated? Urine Glucose (NEGATIVE) mg/dL Influenza Type A Ag (NEGATIVE) Influenza Type B Ag (NEGATIVE) RSV (PCR) (Negative) SARS-CoV-2 (PCR) (NEGATIVE) Group A Strep Antibody (NEGATIVE) 08/20/21 08/20/21 08/20/21 Range/Units 21:05 21:05 20:44 WBC 10.6 H (4.0-10.5) x10^3/uL RBC 3.99 L (4.1-5.4) x10^6/uL Hgb 12.5 (12.0-16.0) g/dL Hct 36.6 (35-47) % MCV 91.7 (78-100) fL MCH 31.3 (26-32) pg MCHC 34.2 (32-36) g/dL RDW 12.9 (11.5-14.0) % Plt Count 292 (150-450) x10^3/uL MPV 9.6 (7.5-11.0) fL Gran % 58.9 (36.0-66.0) % Immature Gran % (Auto) 0.3 (0.00-0.4) % Nucleat RBC Rel Count 0.0 (0.00-0.1) % Eos # (Auto) 0.06 (0-0.5) x10^3/uL Immature Gran # (Auto) 0.03 (0.00-0.03) x10^3u/L Absolute Lymphs (auto) 3.56 (1.0-4.6) x10^3/uL Absolute Monos (auto) 0.61 (0.0-1.3) x10^3/uL Absolute Nucleated RBC 0.00 (0.00-0.01) x10^3u/L Lymphocytes % 33.7 (24.0-44.0) % Monocytes % 5.8 (0.0-12.0) % Eosinophils % 0.6 (0.00-5.0) % Basophils % 0.7 (0.0-0.4) % Absolute Granulocytes 6.22 (1.4-6.9) x10^3/uL Basophils # 0.07 (0-0.4) x10^3/uL Puncture Site pCO2 (35-45) mmHg pO2 (75-100) mmHg Base Excess (-2.0-2.0) O2 Saturation (94-100) g/dF ABG pH (7.35-7.45) ABG HCO3 (22-28) ABG O2 Sat (Measured) (95-100) % Graham Test A-a Gradient a/A Ratio Hemoglobin Carboxyhemoglobin (0.0-6.9) % THgb Methemoglobin (1.4-1.5) % Temperature C POC O2 Flow Rate % Sodium 133 L (137-145) mmol/L Potassium 4.3 (3.5-5.1) mmol/L Chloride 102 (98-107) mmol/L Carbon Dioxide 22 (22-30) mmol/L Anion Gap 13.2 (5-15) MEQ/L BUN 16 (7-17) mg/dL Creatinine 0.83 (0.52-1.04) mg/dL Estimated GFR > 60.0 ML/MIN Glucose 325 H (74-106) mg/dL POC Glucometer (74 to 106) mg/dL Lactic Acid (0.4-2.0) Calcium 8.7 (8.4-10.2) mg/dL Magnesium 2.0 (1.6-2.3) mg/dL Total Bilirubin 0.60 (0.2-1.3) mg/dL AST 24 (14-36) U/L ALT 14 (0-35) U/L Alkaline Phosphatase 107 (38-126) U/L Troponin I (0.000-0.034) ng/mL Serum Total Protein 6.5 (6.3-8.2) g/dL Albumin 3.5 (3.5-5.0) g/dL Urinalys Dipstick Clnc MAIN LAB Urine Color YELLOW (YELLOW) Urine Appearance SLIGHTLY CLOUDY (CLEAR) Urine pH 5.5 (5-6) Ur Specific [place] >=1.030 (1.005-1.025) POC Urine Protein Conf >=300 (Negative) Urine Ketones SMALL-15 (NEGATIVE) Urine Nitrite NEGATIVE (NEGATIVE) Urine Bilirubin SMALL (NEGATIVE) Urine Urobilinogen 0.2 (0-1) mg/dL Urine Leukocytes NEGATIVE (NEGATIVE) Urine WBC (Auto) 0-2 (0-5) /HPF Urine RBC (Auto) 0-2 (0-2) /HPF U Hyaline Cast (Auto) 3-5 (0-2) /LPF U Epithel Cells (Auto) FEW (FEW) /HPF Urine Bacteria (Auto) NONE SEEN (NEGATIVE) /HPF Urine RBC SMALL (0-5) Rodney/ul Urine Mucus (Auto) SLIGHT (NEGATIVE) /HPF Ur Culture Indicated? YES Urine Glucose 500 (NEGATIVE) mg/dL Influenza Type A Ag (NEGATIVE) Influenza Type B Ag (NEGATIVE) RSV (PCR) (Negative) SARS-CoV-2 (PCR) (NEGATIVE) Group A Strep Antibody (NEGATIVE) 08/20/21 Range/Units 20:31 WBC (4.0-10.5) x10^3/uL RBC (4.1-5.4) x10^6/uL Hgb (12.0-16.0) g/dL Hct (35-47) % MCV (78-100) fL MCH (26-32) pg MCHC (32-36) g/dL RDW (11.5-14.0) % Plt Count (150-450) x10^3/uL MPV (7.5-11.0) fL Gran % (36.0-66.0) % Immature Gran % (Auto) (0.00-0.4) % Nucleat RBC Rel Count (0.00-0.1) % Eos # (Auto) (0-0.5) x10^3/uL Immature Gran # (Auto) (0.00-0.03) x10^3u/L Absolute Lymphs (auto) (1.0-4.6) x10^3/uL Absolute Monos (auto) (0.0-1.3) x10^3/uL Absolute Nucleated RBC (0.00-0.01) x10^3u/L Lymphocytes % (24.0-44.0) % Monocytes % (0.0-12.0) % Eosinophils % (0.00-5.0) % Basophils % (0.0-0.4) % Absolute Granulocytes (1.4-6.9) x10^3/uL Basophils # (0-0.4) x10^3/uL Puncture Site pCO2 (35-45) mmHg pO2 (75-100) mmHg Base Excess (-2.0-2.0) O2 Saturation (94-100) g/dF ABG pH (7.35-7.45) ABG HCO3 (22-28) ABG O2 Sat (Measured) (95-100) % Graham Test A-a Gradient a/A Ratio Hemoglobin Carboxyhemoglobin (0.0-6.9) % THgb Methemoglobin (1.4-1.5) % Temperature C POC O2 Flow Rate % Sodium (137-145) mmol/L Potassium (3.5-5.1) mmol/L Chloride (98-107) mmol/L Carbon Dioxide (22-30) mmol/L Anion Gap (5-15) MEQ/L BUN (7-17) mg/dL Creatinine (0.52-1.04) mg/dL Estimated GFR ML/MIN Glucose (74-106) mg/dL POC Glucometer 253 H (74 to 106) mg/dL Lactic Acid (0.4-2.0) Calcium (8.4-10.2) mg/dL Magnesium (1.6-2.3) mg/dL Total Bilirubin (0.2-1.3) mg/dL AST (14-36) U/L ALT (0-35) U/L Alkaline Phosphatase (38-126) U/L Troponin I (0.000-0.034) ng/mL Serum Total Protein (6.3-8.2) g/dL Albumin (3.5-5.0) g/dL Urinalys Dipstick Clnc Urine Color (YELLOW) Urine Appearance (CLEAR) Urine pH (5-6) Ur Specific [place] (1.005-1.025) POC Urine Protein Conf (Negative) Urine Ketones (NEGATIVE) Urine Nitrite (NEGATIVE) Urine Bilirubin (NEGATIVE) Urine Urobilinogen (0-1) mg/dL Urine Leukocytes (NEGATIVE) Urine WBC (Auto) (0-5) /HPF Urine RBC (Auto) (0-2) /HPF U Hyaline Cast (Auto) (0-2) /LPF U Epithel Cells (Auto) (FEW) /HPF Urine Bacteria (Auto) (NEGATIVE) /HPF Urine RBC (0-5) Rodney/ul Urine Mucus (Auto) (NEGATIVE) /HPF Ur Culture Indicated? Urine Glucose (NEGATIVE) mg/dL Influenza Type A Ag (NEGATIVE) Influenza Type B Ag (NEGATIVE) RSV (PCR) (Negative) SARS-CoV-2 (PCR) (NEGATIVE) Group A Strep Antibody (NEGATIVE) - Progress Progress: improved - Departure Departure Disposition: AMA Clinical Impression: Dehydration, Hyperglycemia Condition: Stable Critical Care Time: No Referrals: ALAN MORAN [Primary Care Provider] - Follow up/PCP as directed Instructions: High Blood Sugar, Adult (DC)
[2021-08-20 23:35] VITALS: BP 128/88; PULSE 100; O2SAT 98
--- NOTE | 2021-08-21 09:33 | XRAY ---
ONE VIEW CHEST: [AP portable one view] COMPARISON: 09/09/2019. REPORT: [The heart size and countour are normal. The torey and mideiastinal structures appear intact. The lung styles are well expanded and appear clear. Pulmonary vascularity is normal. The visualized bones appear grossly intact.] IMPRESSION: 1. No active cardiopulmonary disease is seen.]-
== END 2021-08-20 23:35 | disposition left against medical advice (07) ==
LOC: ED 20:02
DX: E10.65 Type 1 diabetes mellitus with hyperglycemia (principal); E86.0 Dehydration; M79.10 Myalgia, unspecified site; Z72.0 Tobacco use; Z28.310 Unvaccinated for COVID-19
CPT/HCPCS: 0241U; 36000; 36415; 36600; 71045; 80053; 81015; 82375; 82803; 82947; 83605; 83735; 84484; 85025; 87086; 87651; 93005; 96360; 96361; 96374; 96375; 96376; 99284; J1815; J2405; J3010

== ENCOUNTER 2021-10-07 21:09 | Emergency (ER) | payer OTHER ==
--- NOTE | 2021-10-07 21:14 | ERPHSYRPT ---
- History of Present Illness Time Seen by Provider: 10/07/21 21:13 Source: patient Exam Limitations: no limitations Physician History: This is a 36-year-old white female patient of Dr. Wilcox who has insulin- dependent diabetes as well as peripheral neuropathy and presents with an elevated blood sugar level, hypertension and tachycardia. Patient has a history of DKA in the past but has not had episodes within the last year or so. She has a Dexcom in place and prior to arrival the reading said "high". Patient also has a history of arthritis, fibromyalgia, and pancreatitis. She is a daily smoker of cigarettes. She has not had any nausea vomiting or diarrhea. She does not have chest pain. She has no localized abdominal pain. Timing/Duration: today Severity: mild (To moderate) Associated Symptoms: weakness Allergies/Adverse Reactions: No Known Drug Allergies Allergy (Verified 08/20/21 20:33) Home Medications: Medroxyprogesterone Acetate [Depo-Provera] 150 mg IM Q90D 09/10/19 [History] Insulin Aspart (Niacinamide) [Fiasp 100 Unit/ml Flextouch] 14 units SQ AC 07/03/20 [History] Insulin Glargine,Hum.rec.anlog [Toujeo Solostar] 34 units SQ HS 07/04/20 [History] Hx Tetanus, Diphtheria Vaccination/Date Given: No Hx Influenza Vaccination/Date Given: No Hx Pneumococcal Vaccination/Date Given: No Travel Risk - International Travel Have you traveled outside of the country in past 3 weeks: No - Coronavirus Screening Are you exhibiting any of the following symptoms?: No Close contact with a COVID-19 positive Pt in past 14-21 Days: No - Vaccine Status Have you recieved a Covid-19 vaccination: No - Review of Systems Constitutional: No Symptoms Eyes: No Symptoms Ears, Nose, & Throat: No Symptoms Respiratory: No Symptoms Cardiac: Palpitations Abdominal/Gastrointestinal: No Symptoms Genitourinary Symptoms: No Symptoms Musculoskeletal: Arthralgias, Myalgias Neurological: No Symptoms Psychological: No Symptoms Endocrine: No Symptoms Hematologic/Lymphatic: No Symptoms Immunological/Allergic: No Symptoms All Other Systems: Reviewed and Negative - Past Medical History Pertinent Past Medical History: Yes Neurological History: Peripheral Neuropathy ENT History: No Pertinent History Cardiac History: No Pertinent History Respiratory History: No Pertinent History Endocrine Medical History: Diabetes Type I Musculoskeletal History: Arthritis, Fibromyalgia GI Medical History: Pancreatitis History: No Pertinent History Psycho-Social History: Anxiety, Depression Female Reproductive Disorders: No Pertinent History Other Medical History: gallbladder out september 13, 2020 - Past Surgical History Past Surgical History: Yes Neuro Surgical History: No Pertinent History Cardiac: No Pertinent History Respiratory: No Pertinent History Gastrointestinal: Cholecystectomy Genitourinary: No Pertinent History Musculoskeletal: No Pertinent History Female Surgical History: Dilation & Curettage, Section Other Surgical History: cs x2. hayden - Social History Smoking Status: Current every day smoker How long have you smoked: 22 years Exposure to second hand smoke: Yes Alcohol Use: None Drug Use: none Patient Lives Alone: No Significant Family History: heart disease, diabetes - Nursing Vital Signs Nursing Vital Signs: Initial Vital Signs Temperature 98.0 F 10/07/21 21:13 Pulse Rate 124 H 10/07/21 21:13 Respiratory Rate 20 10/07/21 21:13 Blood Pressure 221/91 10/07/21 21:13 O2 Sat by Pulse Oximetry 99 10/07/21 21:13 Pain Scale Pain Intensity 8 - Physical Exam General Appearance: no apparent distress, alert, anxiety Eye Exam: PERRL/EOMI, eyes nml inspection Ears, Nose, Throat Exam: normal ENT inspection, dry mucous membranes Neck Exam: normal inspection, non-tender, supple, full range of motion Respiratory Exam: normal breath sounds, lungs clear, airway intact, No chest tenderness, No respiratory distress Cardiovascular Exam: tachycardia Gastrointestinal/Abdomen Exam: soft, normal bowel sounds, No tenderness Pelvic Exam: not done Rectal Exam: not done Back Exam: normal inspection, normal range of motion, No CVA tenderness, No vertebral tenderness Extremity Exam: normal inspection, normal range of motion, pelvis stable Neurologic Exam: alert, oriented x 3, cooperative, management consultant II-XII nml as tested, normal mood/affect, nml cerebellar function, nml station & gait, sensation nml Skin Exam: normal color, warm, dry Lymphatic Exam: No adenopathy SpO2 Interpretation: normal O2 Delivery: Room Air - Course Nursing assessment & vital signs reviewed: Yes Ordered Tests: Active Orders 24 hr Category Date Time Status IV Insertion STAT Care 10/07/21 21:35 Active POCT Glucose Check STAT Care 10/07/21 21:24 Active AMYLASE Stat Lab 10/07/21 22:10 Completed BLOOD CULTURE Stat Lab 10/07/21 22:10 Received CBC W DIFF Stat Lab 10/07/21 22:10 Completed CMP Stat Lab 10/07/21 22:10 Completed CULTURE,URINE Stat Lab 10/07/21 21:47 Received LIPASE Stat Lab 10/07/21 22:10 Completed Lactic Acid Stat Lab 10/07/21 22:05 Completed POCT GLUCOSE Stat Lab 10/07/21 21:19 Completed POCT GLUCOSE Stat Lab 10/07/21 22:59 Completed POCT GLUCOSE Stat Lab 10/08/21 00:01 Completed UA W/RFX CULTURE Stat Lab 10/07/21 21:47 Completed Medication Summary Discontinued Medications Generic Name Dose Route Start Last Admin Trade Name Keatonq PRN Reason Stop Dose Admin Clonidine 0.1 mg 10/07/21 23:16 10/07/21 23:29 Clonidine Hcl 0.1 Mg Tablet PO 10/07/21 23:17 0.1 mg STAT ONE Administration Clonidine Confirm 10/07/21 23:29 Clonidine Hcl 0.1 Mg Tablet Administered 10/07/21 23:30 Dose 0.1 mg .ROUTE .STK-MED ONE Hydromorphone HCl 0.5 mg 10/07/21 21:44 10/07/21 21:49 Hydromorphone 1 Mg/1ml Inj 1 Mg/Ml Syringe IV 10/07/21 21:45 0.5 mg STAT ONE Administration Hydromorphone HCl Confirm 10/07/21 21:49 Hydromorphone 1 Mg/1ml Inj 1 Mg/Ml Syringe Administered 10/07/21 21:50 Dose 1 mg .ROUTE .STK-MED ONE Sodium Chloride 1,000 mls @ 999 mls/hr 10/07/21 21:44 10/07/21 22:56 Sodium Chloride 0.9% 1000 Ml IV 10/07/21 22:44 Infused .Q1H1M STA Infusion Sodium Chloride Confirm 10/07/21 21:49 Sodium Chloride 0.9% 1000 Ml Administered 10/07/21 21:50 Dose 1,000 mls @ ud .ROUTE .STK-MED ONE Sodium Chloride 1,000 mls @ 999 mls/hr 10/07/21 22:26 10/08/21 00:09 Sodium Chloride 0.9% 1000 Ml IV 10/07/21 23:26 Infused .Q1H1M STA Infusion Sodium Chloride Confirm 10/07/21 22:58 Sodium Chloride 0.9% 1000 Ml Administered 10/07/21 22:59 Dose 1,000 mls @ ud .ROUTE .STK-MED ONE Insulin Human Regular 8 unit 10/07/21 22:31 10/07/21 23:03 Insulin Regular, Human 1 Unit IV 10/07/21 22:32 8 unit STAT ONE Administration Insulin Human Regular Confirm 10/07/21 23:02 Insulin Regular, Human 1 Unit Administered 10/07/21 23:03 Dose 8 unit .ROUTE .STK-MED ONE Ondansetron HCl 4 mg 10/07/21 21:44 10/07/21 21:50 Ondansetron Hcl 4 Mg/2 Ml Vial IV 10/07/21 21:45 4 mg STAT ONE Administration Ondansetron HCl Confirm 10/07/21 21:48 Ondansetron Hcl 4 Mg/2 Ml Vial Administered 10/07/21 21:49 Dose 4 mg .ROUTE .STK-MED ONE Lab/Rad Data: Laboratory Result Diagrams 10/07/21 22:10 10/07/21 22:10 Laboratory Results 10/08/21 10/07/21 10/07/21 Range/Units 00:01 22:59 22:10 WBC (4.0-10.5) x10^3/uL RBC (4.1-5.4) x10^6/uL Hgb (12.0-16.0) g/dL Hct (35-47) % MCV (78-100) fL MCH (26-32) pg MCHC (32-36) g/dL RDW (11.5-14.0) % Plt Count (150-450) x10^3/uL MPV (7.5-11.0) fL Gran % (36.0-66.0) % Immature Gran % (Auto) (0.00-0.4) % Nucleat RBC Rel Count (0.00-0.1) % Eos # (Auto) (0-0.5) x10^3/uL Immature Gran # (Auto) (0.00-0.03) x10^3u/L Absolute Lymphs (auto) (1.0-4.6) x10^3/uL Absolute Monos (auto) (0.0-1.3) x10^3/uL Absolute Nucleated RBC (0.00-0.01) x10^3u/L Lymphocytes % (24.0-44.0) % Monocytes % (0.0-12.0) % Eosinophils % (0.00-5.0) % Basophils % (0.0-0.4) % Absolute Granulocytes (1.4-6.9) x10^3/uL Basophils # (0-0.4) x10^3/uL Sodium (137-145) mmol/L Potassium (3.5-5.1) mmol/L Chloride (98-107) mmol/L Carbon Dioxide (22-30) mmol/L Anion Gap (5-15) MEQ/L BUN (7-17) mg/dL Creatinine (0.52-1.04) mg/dL Estimated GFR ML/MIN Glucose (74-106) mg/dL POC Glucometer 294 H 458 H (74 to 106) mg/dL Lactic Acid (0.4-2.0) Calcium (8.4-10.2) mg/dL Total Bilirubin (0.2-1.3) mg/dL AST (14-36) U/L ALT (0-35) U/L Alkaline Phosphatase (38-126) U/L Serum Total Protein (6.3-8.2) g/dL Albumin (3.5-5.0) g/dL Amylase (30-110) U/L Lipase (23-300) U/L Urinalys Dipstick Clnc Urine Color (YELLOW) Urine Appearance (CLEAR) Urine pH (5-6) Ur Specific [place] (1.005-1.025) POC Urine Protein Conf (Negative) Urine Ketones (NEGATIVE) Urine Nitrite (NEGATIVE) Urine Bilirubin (NEGATIVE) Urine Urobilinogen (0-1) mg/dL Urine Leukocytes (NEGATIVE) Urine WBC (Auto) (0-5) /HPF Urine RBC (Auto) (0-2) /HPF U Epithel Cells (Auto) (FEW) /HPF Urine Bacteria (Auto) (NEGATIVE) /HPF Urine RBC (0-5) Rodney/ul Urine Mucus (Auto) (NEGATIVE) /HPF Ur Culture Indicated? Urine Glucose (NEGATIVE) mg/dL Influenza Type A Ag NEGATIVE (NEGATIVE) Influenza Type B Ag NEGATIVE (NEGATIVE) RSV (PCR) NEGATIVE (Negative) SARS-CoV-2 (PCR) NEGATIVE (NEGATIVE) 10/07/21 10/07/21 10/07/21 Range/Units 22:10 22:10 22:05 WBC 7.9 (4.0-10.5) x10^3/uL RBC 4.26 (4.1-5.4) x10^6/uL Hgb 13.2 (12.0-16.0) g/dL Hct 39.8 (35-47) % MCV 93.4 (78-100) fL MCH 31.0 (26-32) pg MCHC 33.2 (32-36) g/dL RDW 12.7 (11.5-14.0) % Plt Count 281 (150-450) x10^3/uL MPV 10.0 (7.5-11.0) fL Gran % 53.8 (36.0-66.0) % Immature Gran % (Auto) 0.4 (0.00-0.4) % Nucleat RBC Rel Count 0.0 (0.00-0.1) % Eos # (Auto) 0.06 (0-0.5) x10^3/uL Immature Gran # (Auto) 0.03 (0.00-0.03) x10^3u/L Absolute Lymphs (auto) 3.02 (1.0-4.6) x10^3/uL Absolute Monos (auto) 0.46 (0.0-1.3) x10^3/uL Absolute Nucleated RBC 0.00 (0.00-0.01) x10^3u/L Lymphocytes % 38.3 (24.0-44.0) % Monocytes % 5.8 (0.0-12.0) % Eosinophils % 0.8 (0.00-5.0) % Basophils % 0.9 (0.0-0.4) % Absolute Granulocytes 4.25 (1.4-6.9) x10^3/uL Basophils # 0.07 (0-0.4) x10^3/uL Sodium 130 L (137-145) mmol/L Potassium 4.1 (3.5-5.1) mmol/L Chloride 101 (98-107) mmol/L Carbon Dioxide 22 (22-30) mmol/L Anion Gap 11.2 (5-15) MEQ/L BUN 7 (7-17) mg/dL Creatinine 0.57 (0.52-1.04) mg/dL Estimated GFR > 60.0 ML/MIN Glucose 476 H (74-106) mg/dL POC Glucometer (74 to 106) mg/dL Lactic Acid 1.7 (0.4-2.0) Calcium 9.0 (8.4-10.2) mg/dL Total Bilirubin 0.50 (0.2-1.3) mg/dL AST 25 (14-36) U/L ALT 17 (0-35) U/L Alkaline Phosphatase 109 (38-126) U/L Serum Total Protein 6.7 (6.3-8.2) g/dL Albumin 3.7 (3.5-5.0) g/dL Amylase 59 (30-110) U/L Lipase 43 (23-300) U/L Urinalys Dipstick Clnc Urine Color (YELLOW) Urine Appearance (CLEAR) Urine pH (5-6) Ur Specific [place] (1.005-1.025) POC Urine Protein Conf (Negative) Urine Ketones (NEGATIVE) Urine Nitrite (NEGATIVE) Urine Bilirubin (NEGATIVE) Urine Urobilinogen (0-1) mg/dL Urine Leukocytes (NEGATIVE) Urine WBC (Auto) (0-5) /HPF Urine RBC (Auto) (0-2) /HPF U Epithel Cells (Auto) (FEW) /HPF Urine Bacteria (Auto) (NEGATIVE) /HPF Urine RBC (0-5) Rodney/ul Urine Mucus (Auto) (NEGATIVE) /HPF Ur Culture Indicated? Urine Glucose (NEGATIVE) mg/dL Influenza Type A Ag (NEGATIVE) Influenza Type B Ag (NEGATIVE) RSV (PCR) (Negative) SARS-CoV-2 (PCR) (NEGATIVE) 10/07/21 10/07/21 Range/Units 21:47 21:19 WBC (4.0-10.5) x10^3/uL RBC (4.1-5.4) x10^6/uL Hgb (12.0-16.0) g/dL Hct (35-47) % MCV (78-100) fL MCH (26-32) pg MCHC (32-36) g/dL RDW (11.5-14.0) % Plt Count (150-450) x10^3/uL MPV (7.5-11.0) fL Gran % (36.0-66.0) % Immature Gran % (Auto) (0.00-0.4) % Nucleat RBC Rel Count (0.00-0.1) % Eos # (Auto) (0-0.5) x10^3/uL Immature Gran # (Auto) (0.00-0.03) x10^3u/L Absolute Lymphs (auto) (1.0-4.6) x10^3/uL Absolute Monos (auto) (0.0-1.3) x10^3/uL Absolute Nucleated RBC (0.00-0.01) x10^3u/L Lymphocytes % (24.0-44.0) % Monocytes % (0.0-12.0) % Eosinophils % (0.00-5.0) % Basophils % (0.0-0.4) % Absolute Granulocytes (1.4-6.9) x10^3/uL Basophils # (0-0.4) x10^3/uL Sodium (137-145) mmol/L Potassium (3.5-5.1) mmol/L Chloride (98-107) mmol/L Carbon Dioxide (22-30) mmol/L Anion Gap (5-15) MEQ/L BUN (7-17) mg/dL Creatinine (0.52-1.04) mg/dL Estimated GFR ML/MIN Glucose (74-106) mg/dL POC Glucometer 379 H (74 to 106) mg/dL Lactic Acid (0.4-2.0) Calcium (8.4-10.2) mg/dL Total Bilirubin (0.2-1.3) mg/dL AST (14-36) U/L ALT (0-35) U/L Alkaline Phosphatase (38-126) U/L Serum Total Protein (6.3-8.2) g/dL Albumin (3.5-5.0) g/dL Amylase (30-110) U/L Lipase (23-300) U/L Urinalys Dipstick Clnc MAIN LAB Urine Color YELLOW (YELLOW) Urine Appearance CLEAR (CLEAR) Urine pH 6.5 (5-6) Ur Specific [place] 1.015 (1.005-1.025) POC Urine Protein Conf >=300 (Negative) Urine Ketones NEGATIVE (NEGATIVE) Urine Nitrite NEGATIVE (NEGATIVE) Urine Bilirubin NEGATIVE (NEGATIVE) Urine Urobilinogen 0.2 (0-1) mg/dL Urine Leukocytes NEGATIVE (NEGATIVE) Urine WBC (Auto) 0-2 (0-5) /HPF Urine RBC (Auto) 0-2 (0-2) /HPF U Epithel Cells (Auto) FEW (FEW) /HPF Urine Bacteria (Auto) RARE (NEGATIVE) /HPF Urine RBC SMALL (0-5) Rodney/ul Urine Mucus (Auto) SLIGHT (NEGATIVE) /HPF Ur Culture Indicated? YES Urine Glucose 500 (NEGATIVE) mg/dL Influenza Type A Ag (NEGATIVE) Influenza Type B Ag (NEGATIVE) RSV (PCR) (Negative) SARS-CoV-2 (PCR) (NEGATIVE) - Departure Departure Disposition: Home Clinical Impression: Hyperglycemia, Hypertension Condition: Stable Critical Care Time: No Referrals: ALAN WILCOX [Primary Care Provider] - Follow up/PCP as directed Instructions: High Blood Sugar, Adult (DC) Additional Instructions: Drink plenty of clear liquids. Monitor your blood sugar closely. Follow-up with your primary care physician later this morning. Contact their office to make arrangements for follow-up appointment for further evaluation and management.
[2021-10-07] MEDS ORDERED: Sodium Chloride 0.9% 1000 ML 1,000 ML IV STA ×2 (21:44→22:26)
[2021-10-07] MEDS ORDERED: Zofran 4 MG/2 ML VIAL IV ONE (21:44)
[2021-10-07] MEDS ORDERED: Hydromorphone 1 mg/ml Injection IV ONE (21:44)
[2021-10-07] MEDS ORDERED: Zofran 4 MG/2 ML VIAL ONE (21:48)
[2021-10-07] MEDS ORDERED: Hydromorphone 1 mg/ml Injection ONE (21:49)
[2021-10-07] MEDS ORDERED: Sodium Chloride 0.9% 1000 ML 1,000 ML ONE ×2 (21:49→22:58)
[2021-10-07 22:15] LABS: Absolute Neutrophil Ct (ANC) 4.25 x10^3/uL (1.4-6.9); Basophil (Absolute #) 0.07 x10^3/uL (0-0.4); Eosinophil % 0.8 % (0.00-5.0); Eosinophil (Absolute #) 0.06 x10^3/uL (0-0.5); Hematocrit 39.8 % (35-47); Hemoglobin 13.2 g/dL (12.0-16.0); Lymphocyte (Absolute #) 3.02 x10^3/uL (1.0-4.6); Lymphocytes % 38.3 % (24.0-44.0); Mean Cell Volume 93.4 fL (78-100); Mean Corpuscular Hgb Concent. 33.2 g/dL (32-36); Monocyte (Absolute #) 0.46 x10^3/uL (0.0-1.3); Monocytes % 5.8 % (0.0-12.0); Neutrophil % 53.8 % (36.0-66.0); Platelet Count 281 x10^3/uL (150-450); Red Blood Count 4.26 x10^6/uL (4.1-5.4); Red Cell Distribution Width 12.7 % (11.5-14.0); White Blood Count 7.9 x10^3/uL (4.0-10.5)
[2021-10-07 22:26] LABS: Bacteria RARE /HPF (NEGATIVE); Epithelial Cells FEW /HPF (FEW); Mucus SLIGHT /HPF (NEGATIVE); RBC 0-2 /HPF (0-2); WBC 0-2 /HPF (0-5)
[2021-10-07 22:28] LABS: ALBUMIN 3.7 g/dL (3.5-5.0); ALKALINE PHOSPHATASE 109 U/L (38-126); AMYLASE 59 U/L (30-110); ANION GAP 11.2 MEQ/L (5-15); BLOOD UREA NITROGEN 7 mg/dL (7-17); CHLORIDE 101 mmol/L (98-107); Carbon Dioxide 22 mmol/L (22-30); Creatinine 1 0.57 mg/dL (0.52-1.04); EST GLOMERULAR FILTRATION RATE > 60.0 ML/MIN; Glucose 476 mg/dL (74-106); LIPASE 43 U/L (23-300); Potassium 4.1 mmol/L (3.5-5.1); SGOT/AST 25 U/L (14-36); SGPT/ALT 17 U/L (0-35); SODIUM 130 mmol/L (137-145); Total Protein 6.7 g/dL (6.3-8.2)
[2021-10-07 22:30] LABS: Appearance CLEAR (CLEAR); Glucose 500 mg/dL (NEGATIVE)
[2021-10-07 22:31] LABS: Bilirubin NEGATIVE (NEGATIVE); Dipstick done @ ? MAIN LAB; Ketones NEGATIVE (NEGATIVE); Nitrite NEGATIVE (NEGATIVE); Ph 6.5 (5-6); Protein,Urine Dip >=300 (Negative); RBC SMALL Ery/ul (0-5); Specific Gravity 1.015 (1.005-1.025); Urine Cultured Indicated? YES; Urobilinogen 0.2 mg/dL (0-1)
[2021-10-07] MEDS ORDERED: HUMULIN R IV ONE (22:31)
[2021-10-07 22:51] LABS: INFLUENZA A NEGATIVE (NEGATIVE); INFLUENZA B NEGATIVE (NEGATIVE); RESPIRATORY SYNCTIAL VIRUS NEGATIVE (Negative); SARS-CoV-2 Xpert Express NEGATIVE (NEGATIVE)
[2021-10-07] MEDS ORDERED: HUMULIN R ONE (23:02)
[2021-10-07] MEDS ORDERED: CLONIDINE 0.1 MG TABLET PO ONE (23:16)
[2021-10-07] MEDS ORDERED: CLONIDINE 0.1 MG TABLET ONE (23:29)
[2021-10-08 00:07] VITALS: BP 171/100; PULSE 94; O2SAT 97
== END 2021-10-08 00:33 | disposition home or self-care (01) ==
LOC: ED 21:09
DX: E10.65 Type 1 diabetes mellitus with hyperglycemia (principal); I10 Essential (primary) hypertension; R00.0 Tachycardia, unspecified; E10.42 Type 1 diabetes mellitus with diabetic polyneuropathy; Z72.0 Tobacco use; Z79.899 Other long term (current) drug therapy; Z28.310 Unvaccinated for COVID-19
CPT/HCPCS: 0241U; 36000; 36415; 80053; 81015; 82150; 82947; 83605; 83690; 85025; 87040; 87086; 96360; 96372; 96374; 96375; 99284; J1170; J1815; J2405; A9270-GY

== ENCOUNTER 2022-03-14 16:40 | Observation (INO) | payer OTHER ==
--- NOTE | 2022-03-14 16:58 | ERPHSYRPT ---
- History of Present Illness Time Seen by Provider: 03/14/22 16:57 Source: patient Exam Limitations: no limitations Physician History: This is a 37-year-old white female patient of Dr. Moran who was seen at [facility] by nurse practitioner Guille Shrestha for cough and flulike symptoms. Patient was found to have a negative COVID test, negative RSV, and negative influenza a and B test results. A chest x-ray was performed which showed a new left lower lobe groundglass airspace disease and to a lesser degree similar findings in the right costophrenic angle. She was found to have a 12.5 white count which is elevated. Patient was given intramuscular injection of Kenalog but no other medications. Patient was told to go directly from the clinic to the emergency department for further evaluation because the nurse practitioner Fady was concerned about her tachycardia and an oxygen saturation level of 89%. However, the patient did not arrive until approximately 5 PM because she had to do things with her kids first. She told this to the nurse practitioner Fady this morning. On arrival to the emergency department, patient is tachycardic with a heart rate of 129, she is afebrile, she has a room air oxygenation level of 97%. Patient is an insulin dependent diabetic Timing/Duration: today Cough Quality/Degree: mild, dry cough Possible Cause: occasional episodes Modifying Factors: Improves With: activity, coughing Associated Symptoms: cough, No fever, No chills, No chest pain/soreness Allergies/Adverse Reactions: No Known Drug Allergies Allergy (Verified 08/20/21 20:33) Home Medications: Medroxyprogesterone Acetate [Depo-Provera] 150 mg IM Q90D 09/10/19 [History] Insulin Aspart (Niacinamide) [Fiasp 100 Unit/ml Flextouch] 14 units SQ AC 07/03/20 [History] Insulin Glargine,Hum.rec.anlog [Toujeo Solostar] 34 units SQ HS 07/04/20 [History] Hx Tetanus, Diphtheria Vaccination/Date Given: No Hx Influenza Vaccination/Date Given: No Hx Pneumococcal Vaccination/Date Given: No Travel Risk - International Travel Have you traveled outside of the country in past 3 weeks: No - Coronavirus Screening Are you exhibiting any of the following symptoms?: Yes Symptoms: Cough: New Onset, Headaches/Body Aches/Fatigue - Vaccine Status Have you recieved a Covid-19 vaccination: No - Review of Systems Constitutional: No Symptoms Eyes: No Symptoms Ears, Nose, & Throat: No Symptoms Respiratory: Cough Cardiac: Palpitations Abdominal/Gastrointestinal: No Symptoms Genitourinary Symptoms: No Symptoms Musculoskeletal: No Symptoms Skin: No Symptoms Neurological: No Symptoms Psychological: No Symptoms Endocrine: No Symptoms Hematologic/Lymphatic: No Symptoms Immunological/Allergic: No Symptoms All Other Systems: Reviewed and Negative - Past Medical History Pertinent Past Medical History: Yes Neurological History: Peripheral Neuropathy ENT History: No Pertinent History Cardiac History: No Pertinent History Respiratory History: No Pertinent History Endocrine Medical History: Diabetes Type I Musculoskeletal History: Arthritis, Fibromyalgia GI Medical History: Pancreatitis History: No Pertinent History Psycho-Social History: Anxiety, Depression Female Reproductive Disorders: No Pertinent History Other Medical History: gallbladder out september 13, 2020 - Past Surgical History Past Surgical History: Yes Neuro Surgical History: No Pertinent History Cardiac: No Pertinent History Respiratory: No Pertinent History Gastrointestinal: Cholecystectomy Genitourinary: No Pertinent History Musculoskeletal: No Pertinent History Female Surgical History: Dilation & Curettage, Section Other Surgical History: cs x2. hayden - Social History Smoking Status: Current every day smoker How long have you smoked: 22 years Exposure to second hand smoke: Yes Alcohol Use: None Drug Use: none Patient Lives Alone: No Significant Family History: heart disease, diabetes - Nursing Vital Signs Nursing Vital Signs: Initial Vital Signs Temperature 98.7 F 03/14/22 16:56 Pulse Rate 128 H 03/14/22 16:56 Respiratory Rate 24 03/14/22 16:56 Blood Pressure 192/100 03/14/22 16:56 O2 Sat by Pulse Oximetry 93 L 03/14/22 16:56 Pain Scale Pain Intensity 5 - Physical Exam General Appearance: no apparent distress, alert, anxiety Eye Exam: PERRL/EOMI, eyes nml inspection Ears, Nose, Throat Exam: normal ENT inspection, moist mucous membranes Neck Exam: normal inspection, non-tender, supple, full range of motion Respiratory Exam: normal breath sounds, lungs clear, airway intact, No chest tenderness, No respiratory distress Cardiovascular Exam: normal peripheral pulses, tachycardia Gastrointestinal/Abdomen Exam: soft, normal bowel sounds, No tenderness Pelvic Exam: not done Rectal Exam: not done Back Exam: normal inspection, normal range of motion, No CVA tenderness, No vertebral tenderness Extremity Exam: normal inspection, normal range of motion, pelvis stable Neurologic Exam: alert, oriented x 3, cooperative, print developer II-XII nml as tested, normal mood/affect, nml cerebellar function, nml station & gait, sensation nml Skin Exam: normal color, warm, dry Lymphatic Exam: No adenopathy SpO2 Interpretation: normal O2 Delivery: Room Air - Course Nursing assessment & vital signs reviewed: Yes EKG Interpreted by Me: RATE (119), Sinus Tach, LAFB, NORMAL QRS, NORMAL ST-T, Other (No acute ischemic changes on today's EKG. There is no evidence of ST elevation in the inferior leads.) Ordered Tests: Active Orders 24 hr Category Date Time Status EKG-ER Only STAT Care 03/14/22 17:07 Active IV Insertion STAT Care 03/14/22 17:07 Active Pulse Oximetry (ED) STAT Care 03/14/22 17:07 Active BMP Stat Lab 03/14/22 17:25 Completed CULTURE,URINE Stat Lab 03/14/22 19:00 Received D-DIMER QUANTITATIVE Stat Lab 03/14/22 17:25 Completed TROPONIN Q4H Lab 03/14/22 17:25 Completed TROPONIN Q4H Lab 03/14/22 21:15 Ordered TROPONIN Q4H Lab 03/15/22 01:15 Ordered UA W/RFX UR CULTURE Stat Lab 03/14/22 19:00 Completed Incentive Spirometry UD RT 03/14/22 21:07 Active Respiratory Therapy Assessment DAILY RT 03/14/22 21:07 Active Transfer Order Routine Transfer 03/14/22 Ordered Medication Summary Discontinued Medications Generic Name Dose Route Start Last Admin Trade Name Freq PRN Reason Stop Dose Admin Hydrocodone Bitart/Acetaminophen 15 ml 03/14/22 21:21 Hydrocodone/Acetaminophen 5 Ml Udcup PO 03/14/22 21:22 STAT STA Albuterol Sulfate Confirm 03/14/22 20:06 Albuterol Sulfate 2.5 Mg/3 Ml Neb Administered 03/14/22 20:07 Dose 2.5 mg IH .STK-MED ONE Albuterol Sulfate 2.5 mg 03/14/22 20:05 03/14/22 20:05 Albuterol Sulfate 2.5 Mg/3 Ml Neb IH 03/14/22 20:06 2.5 mg STAT ONE Administration Sodium Chloride 1,000 mls @ 999 mls/hr 03/14/22 17:07 03/14/22 18:48 Sodium Chloride 0.9% 1000 Ml IV 03/14/22 18:07 Infused .Q1H1M STA Infusion Sodium Chloride Confirm 03/14/22 17:35 Sodium Chloride 0.9% 1000 Ml Administered 03/14/22 17:36 Dose 1,000 mls @ ud .ROUTE .STK-MED ONE Sodium Chloride 1,000 mls @ 999 mls/hr 03/14/22 18:31 03/14/22 19:59 Sodium Chloride 0.9% 1000 Ml IV 03/14/22 19:31 Infused .Q1H1M STA Infusion Sodium Chloride Confirm 03/14/22 18:42 Sodium Chloride 0.9% 1000 Ml Administered 03/14/22 18:43 Dose 1,000 mls @ ud .ROUTE .STK-MED ONE Ceftriaxone Sodium/Dextrose 1 g in 50 mls @ 100 mls/hr 03/14/22 20:25 03/14/22 21:04 Rocephin 1 Gm-D5w 50 Ml Bag IV 03/14/22 20:54 Infused STAT STA Infusion Ceftriaxone Sodium/Dextrose Confirm 03/14/22 20:29 Rocephin 1 Gm-D5w 50 Ml Bag Administered 03/14/22 20:30 Dose 1 g in 50 mls @ ud IV .STK-MED ONE Morphine Sulfate 4 mg 03/14/22 18:46 03/14/22 18:56 Morphine Sulfate 4 Mg/Ml Injection IV 03/14/22 18:47 4 mg STAT ONE Administration Morphine Sulfate Confirm 03/14/22 18:52 Morphine Sulfate 4 Mg/Ml Injection Administered 03/14/22 18:53 Dose 4 mg .ROUTE .STK-MED ONE Ondansetron HCl 4 mg 03/14/22 18:46 03/14/22 18:53 Ondansetron Hcl 4 Mg/2 Ml Vial IV 03/14/22 18:47 4 mg STAT ONE Administration Ondansetron HCl Confirm 03/14/22 18:51 Ondansetron Hcl 4 Mg/2 Ml Vial Administered 03/14/22 18:52 Dose 4 mg .ROUTE .STK-MED ONE Lab/Rad Data: Laboratory Result Diagrams 03/14/22 17:25 Laboratory Results 03/14/22 03/14/22 03/14/22 Range/Units 19:00 17:25 17:25 D-Dimer (0.0-0.50) mg/L Sodium (137-145) mmol/L Potassium (3.5-5.1) mmol/L Chloride (98-107) mmol/L Carbon Dioxide (22-30) mmol/L Anion Gap (5-15) MEQ/L BUN (7-17) mg/dL Creatinine (0.52-1.04) mg/dL Estimated GFR ML/MIN Glucose (74-106) mg/dL Calcium (8.4-10.2) mg/dL Troponin I < 0.012 (0.000-0.034) ng/mL Urine Color Yellow (Yellow) Urine Appearance Clear (Clear) Urine pH 6.0 (4.6-8.0) Ur Specific Smilax 1.020 (1.005-1.030) Urine Protein 300 A (Negative) Urine Glucose (UA) >=1000 A (Negative) mg/dL Urine Ketones 15 A (Negative) Urine Blood Small A (Negative) Urine Nitrite Negative (Negative) Urine Bilirubin Negative (Negative) Urine Urobilinogen 1.0 A (0.2) mg/dL Ur Leukocyte Esterase Negative (Negative) U Hyaline Cast (Auto) NONE SEEN (0-2) /LPF Urine Microscopic RBC 0-2 (0-5) /HPF Urine Microscopic WBC 0-2 (0-5) /HPF Ur Epithelial Cells Rare (None Seen) /HPF Urine Bacteria None Seen (None Seen) /HPF Urine Culture Reflexed YES (NO) Group A Strep Antibody NOT DETECTED (NEGATIVE) 03/14/22 03/14/22 Range/Units 17:25 17:25 D-Dimer 0.35 (0.0-0.50) mg/L Sodium 133 L (137-145) mmol/L Potassium 3.7 (3.5-5.1) mmol/L Chloride 95 L (98-107) mmol/L Carbon Dioxide 29 (22-30) mmol/L Anion Gap 12.9 (5-15) MEQ/L BUN 5 L (7-17) mg/dL Creatinine 0.62 (0.52-1.04) mg/dL Estimated GFR > 60.0 ML/MIN Glucose 230 H (74-106) mg/dL Calcium 8.9 (8.4-10.2) mg/dL Troponin I (0.000-0.034) ng/mL Urine Color (Yellow) Urine Appearance (Clear) Urine pH (4.6-8.0) Ur Specific Smilax (1.005-1.030) Urine Protein (Negative) Urine Glucose (UA) (Negative) mg/dL Urine Ketones (Negative) Urine Blood (Negative) Urine Nitrite (Negative) Urine Bilirubin (Negative) Urine Urobilinogen (0.2) mg/dL Ur Leukocyte Esterase (Negative) U Hyaline Cast (Auto) (0-2) /LPF Urine Microscopic RBC (0-5) /HPF Urine Microscopic WBC (0-5) /HPF Ur Epithelial Cells (None Seen) /HPF Urine Bacteria (None Seen) /HPF Urine Culture Reflexed (NO) Group A Strep Antibody (NEGATIVE) - Progress Progress: improved, re-examined Air Movement: fair Progress Note: 03/14/22 19:33 Medical decision making: This patient had a chest x-ray earlier today that showed bilateral lower lobe groundglass opacity with the left side being larger than the right base. She is having some issues with lower than expected oxygen saturations. Her D-dimer is normal. She has a cough. Her heart rate now after liter fluid is 107 bpm. Her blood pressure is 157/80. Her troponin is normal. Her COVID test is negative as is her influenza a and B test. She has a negative group A strep test. Patient is diabetic and her blood sugar is approximately 250. We are awaiting her urinalysis to determine if she has ketones in her urine. Her anion gap is normal as is her CO2. 03/14/22 21:19 Medical decision making: The plan originally was to discharge the patient to home however we rechecked the patient's vital signs a little bit before discharge. Patient was reexamined. Patient was evaluated by respiratory therapy on room air patient runs 88 to 90%. She is not taking full breaths but has pain when she does take a full breath so she stopped suddenly. Patient has pulmonary infiltrate bibasilar worse on the left than the right and she is hyp oxic and diabetic and I feel the patient would be best served by placing her in observation. I spoke with Dr. Vanegas. I reviewed the patient history, patient lab and radiographic results as well as her clinical state and the response to our work-up. Using the patient history, vital signs, results of laboratory work-up and results of radiographic study as well as response to our management, we opted to place her in observation and formulated the above plan. Blood Culture(s) Obtained: No Antibiotics given: Yes Discussed with Dr.: Leong Counseled pt/family regarding: lab results, diagnosis, rad results - Departure Departure Disposition: Home Clinical Impression: Infiltrate of lung present on chest x-ray, Hypoxia Condition: Stable Critical Care Time: No Referrals: ALAN MORAN [Primary Care Provider] - Follow up/PCP as directed
[2022-03-14] MEDS ORDERED: Sodium Chloride 0.9% 1000 ML 1,000 ML IV STA ×2 (17:07→18:31)
[2022-03-14] MEDS ORDERED: Sodium Chloride 0.9% 1000 ML 1,000 ML ONE ×2 (17:35→18:42)
[2022-03-14 17:48] LABS: ANION GAP 12.9 MEQ/L (5-15); BLOOD UREA NITROGEN 5 mg/dL (7-17); CHLORIDE 95 mmol/L (98-107); Calcium 8.9 mg/dL (8.4-10.2); Carbon Dioxide 29 mmol/L (22-30); Creatinine 1 0.62 mg/dL (0.52-1.04); EST GLOMERULAR FILTRATION RATE > 60.0 ML/MIN; Glucose 230 mg/dL (74-106); Potassium 3.7 mmol/L (3.5-5.1); SODIUM 133 mmol/L (137-145)
[2022-03-14] MEDS ORDERED: MORPHINE SULFATE 4 MG INJ IV ONE (18:46)
[2022-03-14] MEDS ORDERED: Zofran 4 MG/2 ML VIAL IV ONE (18:46)
[2022-03-14] MEDS ORDERED: Zofran 4 MG/2 ML VIAL ONE (18:51)
[2022-03-14] MEDS ORDERED: MORPHINE SULFATE 4 MG INJ ONE (18:52)
[2022-03-14 19:39] LABS: Appearance Clear (Clear); Bacteria None Seen /HPF (None Seen); Bilirubin Negative (Negative); Blood Small (Negative); Epithelial Cells Rare /HPF (None Seen); Glucose, Urine >=1000 mg/dL (Negative); Hyaline Casts NONE SEEN /LPF (0-2); Ketones 15 (Negative); Leukocyte Esterase Negative (Negative); Nitrite Negative (Negative); Protein,Urine Dip 300 (Negative); RBC 0-2 /HPF (0-5); WBC 0-2 /HPF (0-5)
[2022-03-14 19:42] LABS: ADD URINE CULTURE? YES (NO)
[2022-03-14] MEDS ORDERED: PROVENTIL 2.5 MG/3 ML NEB IH ONE ×2 (20:05→20:06)
[2022-03-14] MEDS ORDERED: ROCEPHIN 1 Gm-D5w 50 ml Bag** 1 G/50 ML IVPB IV STA (20:25)
[2022-03-14] MEDS ORDERED: ROCEPHIN 1 Gm-D5w 50 ml Bag** 1 G/50 ML IVPB IV ONE (20:29)
[2022-03-14] MEDS ORDERED: HYDROCODONE-ACETAMIN 2.5-108/5 ML SOLUTION PO STA (21:21)
[2022-03-14] MEDS ORDERED: HYDROCODONE-ACETAMIN 2.5-108/5 ML SOLUTION ONE (21:34)
[2022-03-14] MEDS ORDERED: Zofran 4 MG/2 ML VIAL IV PRN (23:04)
[2022-03-14] MEDS ORDERED: TYLENOL 325 MG PO PRN (23:04)
[2022-03-14] MEDS: HUMULIN R SQ PRN (23:45)
[2022-03-14] MEDS: Sodium Chloride 0.9% 1000 ML 1,000 ML IV SCH (23:46)
[2022-03-15] MEDS: HYDROCODONE-ACETAMIN 2.5-108/5 ML SOLUTION PO PRN ×6 (01:36→21:43)
[2022-03-15 03:05] LABS: Absolute Neutrophil Ct (ANC) 8.87 x10^3/uL (1.4-6.9); BASOPHIL % 0.6 % (0.0-0.4); Basophil (Absolute #) 0.08 x10^3/uL (0-0.4); Eosinophil % 0.7 % (0.00-5.0); Eosinophil (Absolute #) 0.09 x10^3/uL (0-0.5); Hematocrit 33.6 % (35-47); Hemoglobin 10.9 g/dL (12.0-16.0); IMMATURE GRAN # 0.07 x10^3u/L (0.00-0.03); IMMATURE GRAN % 0.5 % (0.00-0.4); Lymphocyte (Absolute #) 2.83 x10^3/uL (1.0-4.6); Mean Cell Volume 97.7 fL (78-100); Mean Corpuscular Hemoglobin 31.7 pg (26-32); Mean Corpuscular Hgb Concent. 32.4 g/dL (32-36); Mean Platelet Volume 9.4 fL (7.5-11.0); Monocyte (Absolute #) 0.91 x10^3/uL (0.0-1.3); Monocytes % 7.1 % (0.0-12.0); Neutrophil % 69.1 % (36.0-66.0); Platelet Count 362 x10^3/uL (150-450); Red Blood Count 3.44 x10^6/uL (4.1-5.4); White Blood Count 12.9 x10^3/uL (4.0-10.5)
[2022-03-15 03:13] LABS: ALBUMIN 3.1 g/dL (3.5-5.0); ALKALINE PHOSPHATASE 218 U/L (38-126); ANION GAP 15.3 MEQ/L (5-15); BLOOD UREA NITROGEN 6 mg/dL (7-17); CHLORIDE 100 mmol/L (98-107); Carbon Dioxide 20 mmol/L (22-30); Creatinine 1 0.61 mg/dL (0.52-1.04); EST GLOMERULAR FILTRATION RATE > 60.0 ML/MIN; Glucose 394 mg/dL (74-106); Potassium 3.5 mmol/L (3.5-5.1); SGOT/AST 34 U/L (14-36); SODIUM 131 mmol/L (137-145); Total Protein 5.9 g/dL (6.3-8.2)
[2022-03-15 03:19] LABS: SGPT/ALT 39 U/L (0-35)
[2022-03-15] MEDS: HUMULIN R SQ PRN ×4 (04:44→21:44)
[2022-03-15] MEDS ORDERED: Zithromax 500 MG/ 250 ML NaCl Premix 500 MG/250 ML IVPB IV SCH ×2 (10:00→22:00)
--- NOTE | 2022-03-15 10:35 | PCM.HP ---
History of Present Illness - Chief Complaint Chief Complaint: c/o cough,fever, bodyache for 1-2 days History of Present Illness: is a 37 year old female.who was seen at [facility] by nurse practitioner Guille Shrestha for cough and flulike symptoms. Patient was found to have a negative COVID test, negative RSV, and negative influenza a and B test results. A chest x-ray was performed which showed a new left lower lobe groundglass airspace disease and to a lesser degree similar findings in the right costophrenic angle. She was found to have a 12.5 white count which is elevated. Patient was given intramuscular injection of Kenalog but no other medications. Patient was told to go directly from the clinic to the emergency department for further evaluation because the nurse practitioner Fady was concerned about her tachycardia and an oxygen saturation level of 89%. However, the patient did not arrive until approximately 5 PM because she had to do things with her kids first. She told this to the nurse practitioner Fady this morning. On arrival to the emergency department, patient is tachycardic with a heart rate of 129, she is afebrile, she has a room air oxygenation level of 97%. Patient is an insulin dependent diabetic Timing/Duration: today Cough Quality/Degree: mild, dry cough Possible Cause: occasional episodes Modifying Factors: Improves With: activity, coughing Associated Symptoms: cough, No fever, No chills, No chest pain/soreness - Review of Systems Constitutional: Fever, Chills, Malaise Eyes: No Symptoms Ears, Nose, & Throat: No Symptoms Respiratory: Cough, Short Of Breath, Wheezing Cardiac: No Chest Pain, No Edema, No Syncope Abdominal/Gastrointestinal: No Abdominal Pain, No Nausea, No Vomiting, No Diarrhea Genitourinary Symptoms: No Dysuria Musculoskeletal: No Back Pain, No Neck Pain Skin: No Rash Neurological: No Dizziness, No Focal Weakness, No Sensory Changes Psychological: No Symptoms Endocrine: No Symptoms Hematologic/Lymphatic: No Symptoms Immunological/Allergic: No Symptoms Medications & Allergies Home Medications: Home Medication List Medroxyprogesterone Acetate [Depo-Provera] 150 mg IM Q90D 09/10/19 [History Confirmed 03/15/22] Insulin Aspart (Niacinamide) [Fiasp 100 Unit/ml Flextouch] 14 units SQ AC 07/03/20 [History Confirmed 03/15/22] Insulin Glargine,Hum.rec.anlog [Brandi Adams] 20 units SQ HS 07/04/20 [History Confirmed 03/15/22] Allergies/Adverse Reactions: Allergies Allergy/AdvReac Type Severity Reaction Status Date / Time No Known Drug Allergies Allergy Verified 08/20/21 20:33 - Past Medical History Past Medical History: Yes Neurological History: Peripheral Neuropathy ENT History: No Pertinent History Cardiac History: No Pertinent History Respiratory History: No Pertinent History Endocrine Medical History: Diabetes Type I Musculoskelatal History: Arthritis, Fibromyalgia, Other GI Medical History: Pancreatitis History: No Pertinent History Pyscho-Social History: Anxiety, Depression Reproductive Disorders: No Pertinent History Comment: gallbladder out september 13, 2020, carpal tunnel - Female History Hx Last Menstrual Period: depo Are you now?: No - Past Surgical History Past Surgical History: Yes Neuro Surgical History: No Pertinent History Cardiac History: No Pertinent History Respiratory Surgery: No Pertinent History GI Surgical History: Cholecystectomy Genitourinary Surgical Hx: No Pertinent History Musculskeletal Surgical Hx: No Pertinent History Female Surgical History: Dilation & Curettage, Section Other Surgical History: cs x2. hayden - Social History Smoking Status: Current every day smoker How long have you smoked: 22 years Exposure to second hand smoke: Yes Alcohol: None Drug Use: none Significant Family History: heart disease, diabetes - Physical Exam Vital Signs: Vital Signs - 24 hr Temp Pulse Resp BP Pulse Ox 03/15/22 07:57 98.4 F 92 H 16 123/58 95 03/15/22 07:28 98 H 18 96 03/15/22 03:43 98.4 F 105 H 18 140/70 95 03/14/22 23:56 98.7 F 123 H 19 144/63 92 L 03/14/22 23:45 121 H 18 94 L 03/14/22 23:04 92 L 03/14/22 22:02 120 H 18 132/65 93 L 03/14/22 21:03 120 H 121/50 90 L 03/14/22 20:05 111 H 20 96 03/14/22 20:02 108 H 16 138/75 94 L 03/14/22 19:10 109 H 20 157/80 91 L 03/14/22 18:46 98.7 F 111 H 20 152/71 92 L 03/14/22 17:43 111 H 20 179/99 90 L 03/14/22 17:33 95 03/14/22 16:56 98.7 F 128 H 24 192/100 93 L General Appearance: no apparent distress, alert Neurologic Exam: alert, oriented x 3, cooperative, normal mood/affect, nml cerebellar function, nml station & gait, sensation nml, No motor deficits Eye Exam: PERRL/EOMI, eyes nml inspection Ears, Nose, Throat Exam: normal ENT inspection, TMs normal, pharynx normal, moist mucous membranes Neck Exam: normal inspection, non-tender, supple, full range of motion Respiratory Exam: diminished breath sounds, accessory muscle use, crackles/rales, rhonchi, wheezing, No respiratory distress Cardiovascular Exam: regular rate/rhythm, normal heart sounds, normal peripheral pulses Gastrointestinal/Abdomen Exam: soft, normal bowel sounds, No tenderness, No mass Back Exam: normal inspection, normal range of motion, No CVA tenderness, No vertebral tenderness Extremity Exam: normal inspection, normal range of motion, pelvis stable Skin Exam: normal color, warm, dry, No rash Lymphatic Exam: No adenopathy Results - Labs Lab/Micro Results: Lab Results-Last 24 Hours 03/14/22 03/14/22 03/14/22 Range/Units 17:25 17:25 17:25 WBC (4.0-10.5) x10^3/uL RBC (4.1-5.4) x10^6/uL Hgb (12.0-16.0) g/dL Hct (35-47) % MCV (78-100) fL MCH (26-32) pg MCHC (32-36) g/dL RDW (11.5-14.0) % Plt Count (150-450) x10^3/uL MPV (7.5-11.0) fL Gran % (36.0-66.0) % Immature Gran % (Auto) (0.00-0.4) % Nucleat RBC Rel Count (0.00-0.1) % Eos # (Auto) (0-0.5) x10^3/uL Immature Gran # (Auto) (0.00-0.03) x10^3u/L Absolute Lymphs (auto) (1.0-4.6) x10^3/uL Absolute Monos (auto) (0.0-1.3) x10^3/uL Absolute Nucleated RBC (0.00-0.01) x10^3u/L Lymphocytes % (24.0-44.0) % Monocytes % (0.0-12.0) % Eosinophils % (0.00-5.0) % Basophils % (0.0-0.4) % Absolute Granulocytes (1.4-6.9) x10^3/uL Basophils # (0-0.4) x10^3/uL D-Dimer 0.35 (0.0-0.50) mg/L Sodium 133 L (137-145) mmol/L Potassium 3.7 (3.5-5.1) mmol/L Chloride 95 L (98-107) mmol/L Carbon Dioxide 29 (22-30) mmol/L Anion Gap 12.9 (5-15) MEQ/L BUN 5 L (7-17) mg/dL Creatinine 0.62 (0.52-1.04) mg/dL Estimated GFR > 60.0 ML/MIN Glucose 230 H (74-106) mg/dL POC Glucometer (74 to 106) mg/dL Calcium 8.9 (8.4-10.2) mg/dL Total Bilirubin (0.2-1.3) mg/dL AST (14-36) U/L ALT (0-35) U/L Alkaline Phosphatase (38-126) U/L Troponin I < 0.012 (0.000-0.034) ng/mL Serum Total Protein (6.3-8.2) g/dL Albumin (3.5-5.0) g/dL Urine Color (Yellow) Urine Appearance (Clear) Urine pH (4.6-8.0) Ur Specific [place] (1.005-1.030) Urine Protein (Negative) Urine Glucose (UA) (Negative) mg/dL Urine Ketones (Negative) Urine Blood (Negative) Urine Nitrite (Negative) Urine Bilirubin (Negative) Urine Urobilinogen (0.2) mg/dL Ur Leukocyte Esterase (Negative) U Hyaline Cast (Auto) (0-2) /LPF Urine Microscopic RBC (0-5) /HPF Urine Microscopic WBC (0-5) /HPF Ur Epithelial Cells (None Seen) /HPF Urine Bacteria (None Seen) /HPF Urine Culture Reflexed (NO) Group A Strep Antibody (NEGATIVE) 03/14/22 03/14/22 03/14/22 Range/Units 17:25 19:00 21:47 WBC (4.0-10.5) x10^3/uL RBC (4.1-5.4) x10^6/uL Hgb (12.0-16.0) g/dL Hct (35-47) % MCV (78-100) fL MCH (26-32) pg MCHC (32-36) g/dL RDW (11.5-14.0) % Plt Count (150-450) x10^3/uL MPV (7.5-11.0) fL Gran % (36.0-66.0) % Immature Gran % (Auto) (0.00-0.4) % Nucleat RBC Rel Count (0.00-0.1) % Eos # (Auto) (0-0.5) x10^3/uL Immature Gran # (Auto) (0.00-0.03) x10^3u/L Absolute Lymphs (auto) (1.0-4.6) x10^3/uL Absolute Monos (auto) (0.0-1.3) x10^3/uL Absolute Nucleated RBC (0.00-0.01) x10^3u/L Lymphocytes % (24.0-44.0) % Monocytes % (0.0-12.0) % Eosinophils % (0.00-5.0) % Basophils % (0.0-0.4) % Absolute Granulocytes (1.4-6.9) x10^3/uL Basophils # (0-0.4) x10^3/uL D-Dimer (0.0-0.50) mg/L Sodium (137-145) mmol/L Potassium (3.5-5.1) mmol/L Chloride (98-107) mmol/L Carbon Dioxide (22-30) mmol/L Anion Gap (5-15) MEQ/L BUN (7-17) mg/dL Creatinine (0.52-1.04) mg/dL Estimated GFR ML/MIN Glucose (74-106) mg/dL POC Glucometer (74 to 106) mg/dL Calcium (8.4-10.2) mg/dL Total Bilirubin (0.2-1.3) mg/dL AST (14-36) U/L ALT (0-35) U/L Alkaline Phosphatase (38-126) U/L Troponin I < 0.012 (0.000-0.034) ng/mL Serum Total Protein (6.3-8.2) g/dL Albumin (3.5-5.0) g/dL Urine Color Yellow (Yellow) Urine Appearance Clear (Clear) Urine pH 6.0 (4.6-8.0) Ur Specific [place] 1.020 (1.005-1.030) Urine Protein 300 A (Negative) Urine Glucose (UA) >=1000 A (Negative) mg/dL Urine Ketones 15 A (Negative) Urine Blood Small A (Negative) Urine Nitrite Negative (Negative) Urine Bilirubin Negative (Negative) Urine Urobilinogen 1.0 A (0.2) mg/dL Ur Leukocyte Esterase Negative (Negative) U Hyaline Cast (Auto) NONE SEEN (0-2) /LPF Urine Microscopic RBC 0-2 (0-5) /HPF Urine Microscopic WBC 0-2 (0-5) /HPF Ur Epithelial Cells Rare (None Seen) /HPF Urine Bacteria None Seen (None Seen) /HPF Urine Culture Reflexed YES (NO) Group A Strep Antibody NOT DETECTED (NEGATIVE) 03/14/22 03/15/22 03/15/22 Range/Units 23:25 02:54 02:54 WBC 12.9 H (4.0-10.5) x10^3/uL RBC 3.44 L (4.1-5.4) x10^6/uL Hgb 10.9 L (12.0-16.0) g/dL Hct 33.6 L (35-47) % MCV 97.7 (78-100) fL MCH 31.7 (26-32) pg MCHC 32.4 (32-36) g/dL RDW 14.0 (11.5-14.0) % Plt Count 362 (150-450) x10^3/uL MPV 9.4 (7.5-11.0) fL Gran % 69.1 H (36.0-66.0) % Immature Gran % (Auto) 0.5 H (0.00-0.4) % Nucleat RBC Rel Count 0.0 (0.00-0.1) % Eos # (Auto) 0.09 (0-0.5) x10^3/uL Immature Gran # (Auto) 0.07 H (0.00-0.03) x10^3u/L Absolute Lymphs (auto) 2.83 (1.0-4.6) x10^3/uL Absolute Monos (auto) 0.91 (0.0-1.3) x10^3/uL Absolute Nucleated RBC 0.00 (0.00-0.01) x10^3u/L Lymphocytes % 22.0 L (24.0-44.0) % Monocytes % 7.1 (0.0-12.0) % Eosinophils % 0.7 (0.00-5.0) % Basophils % 0.6 (0.0-0.4) % Absolute Granulocytes 8.87 H (1.4-6.9) x10^3/uL Basophils # 0.08 (0-0.4) x10^3/uL D-Dimer (0.0-0.50) mg/L Sodium (137-145) mmol/L Potassium (3.5-5.1) mmol/L Chloride (98-107) mmol/L Carbon Dioxide (22-30) mmol/L Anion Gap (5-15) MEQ/L BUN (7-17) mg/dL Creatinine (0.52-1.04) mg/dL Estimated GFR ML/MIN Glucose (74-106) mg/dL POC Glucometer 461 H (74 to 106) mg/dL Calcium (8.4-10.2) mg/dL Total Bilirubin (0.2-1.3) mg/dL AST (14-36) U/L ALT (0-35) U/L Alkaline Phosphatase (38-126) U/L Troponin I < 0.012 (0.000-0.034) ng/mL Serum Total Protein (6.3-8.2) g/dL Albumin (3.5-5.0) g/dL Urine Color (Yellow) Urine Appearance (Clear) Urine pH (4.6-8.0) Ur Specific [place] (1.005-1.030) Urine Protein (Negative) Urine Glucose (UA) (Negative) mg/dL Urine Ketones (Negative) Urine Blood (Negative) Urine Nitrite (Negative) Urine Bilirubin (Negative) Urine Urobilinogen (0.2) mg/dL Ur Leukocyte Esterase (Negative) U Hyaline Cast (Auto) (0-2) /LPF Urine Microscopic RBC (0-5) /HPF Urine Microscopic WBC (0-5) /HPF Ur Epithelial Cells (None Seen) /HPF Urine Bacteria (None Seen) /HPF Urine Culture Reflexed (NO) Group A Strep Antibody (NEGATIVE) 03/15/22 03/15/22 03/15/22 Range/Units 02:54 04:35 07:17 WBC (4.0-10.5) x10^3/uL RBC (4.1-5.4) x10^6/uL Hgb (12.0-16.0) g/dL Hct (35-47) % MCV (78-100) fL MCH (26-32) pg MCHC (32-36) g/dL RDW (11.5-14.0) % Plt Count (150-450) x10^3/uL MPV (7.5-11.0) fL Gran % (36.0-66.0) % Immature Gran % (Auto) (0.00-0.4) % Nucleat RBC Rel Count (0.00-0.1) % Eos # (Auto) (0-0.5) x10^3/uL Immature Gran # (Auto) (0.00-0.03) x10^3u/L Absolute Lymphs (auto) (1.0-4.6) x10^3/uL Absolute Monos (auto) (0.0-1.3) x10^3/uL Absolute Nucleated RBC (0.00-0.01) x10^3u/L Lymphocytes % (24.0-44.0) % Monocytes % (0.0-12.0) % Eosinophils % (0.00-5.0) % Basophils % (0.0-0.4) % Absolute Granulocytes (1.4-6.9) x10^3/uL Basophils # (0-0.4) x10^3/uL D-Dimer (0.0-0.50) mg/L Sodium 131 L (137-145) mmol/L Potassium 3.5 (3.5-5.1) mmol/L Chloride 100 (98-107) mmol/L Carbon Dioxide 20 L (22-30) mmol/L Anion Gap 15.3 H (5-15) MEQ/L BUN 6 L (7-17) mg/dL Creatinine 0.61 (0.52-1.04) mg/dL Estimated GFR > 60.0 ML/MIN Glucose 394 H (74-106) mg/dL POC Glucometer 434 H 280 H (74 to 106) mg/dL Calcium 8.0 L (8.4-10.2) mg/dL Total Bilirubin 0.30 (0.2-1.3) mg/dL AST 34 (14-36) U/L ALT 39 H (0-35) U/L Alkaline Phosphatase 218 H (38-126) U/L Troponin I (0.000-0.034) ng/mL Serum Total Protein 5.9 L (6.3-8.2) g/dL Albumin 3.1 L (3.5-5.0) g/dL Urine Color (Yellow) Urine Appearance (Clear) Urine pH (4.6-8.0) Ur Specific [place] (1.005-1.030) Urine Protein (Negative) Urine Glucose (UA) (Negative) mg/dL Urine Ketones (Negative) Urine Blood (Negative) Urine Nitrite (Negative) Urine Bilirubin (Negative) Urine Urobilinogen (0.2) mg/dL Ur Leukocyte Esterase (Negative) U Hyaline Cast (Auto) (0-2) /LPF Urine Microscopic RBC (0-5) /HPF Urine Microscopic WBC (0-5) /HPF Ur Epithelial Cells (None Seen) /HPF Urine Bacteria (None Seen) /HPF Urine Culture Reflexed (NO) Group A Strep Antibody (NEGATIVE) Microbiology 03/14/22 19:00 Urine Culture - Preliminary Urine, Void NO GROWTH TO DATE Accuchecks Date 03/15/22 Date 03/15/22 Date 03/14/22 Time 04:30 Time 23:35 - Other Procedures and Tests Respiratory Therapy 03/14/22 23:04 Oxygen Nasal Cannula 2 lpm 03/15/22 00:04 Respiratory Therapy Assessment DAILY Assessment/Plan (1) Infiltrate of lung present on chest x-ray Current Visit: Yes Status: Acute Assessment & Plan: Chief Complaint Diagnosis pneumonia, hypoxia, cough Allergies Allergy/AdvReac Type Severity Reaction Status Date / Time No Known Drug Allergies Allergy Verified 08/20/21 20:33 Vital Signs (Last 24 hours) Temp Pulse Resp BP Pulse Ox 03/15/22 07:57 98.4 F 92 H 16 123/58 95 03/15/22 07:28 98 H 18 96 03/15/22 03:43 98.4 F 105 H 18 140/70 95 03/14/22 23:56 98.7 F 123 H 19 144/63 92 L 03/14/22 23:45 121 H 18 94 L 03/14/22 23:04 92 L 03/14/22 22:02 120 H 18 132/65 93 L 03/14/22 21:03 120 H 121/50 90 L 03/14/22 20:05 111 H 20 96 03/14/22 20:02 108 H 16 138/75 94 L 03/14/22 19:10 109 H 20 157/80 91 L 03/14/22 18:46 98.7 F 111 H 20 152/71 92 L 03/14/22 17:43 111 H 20 179/99 90 L 03/14/22 17:33 95 03/14/22 16:56 98.7 F 128 H 24 192/100 93 L Current Medications Generic Name Dose Route Start Last Admin Trade Name Freq PRN Reason Stop Dose Admin Acetaminophen 650 mg 03/14/22 23:04 Acetaminophen 325 Mg Tablet PO 04/13/22 23:03 Q4H PRN PRN PAIN, FEVER, HEADACHE Hydrocodone Bitart/Acetaminophen 10 ml 03/14/22 23:04 03/15/22 09:39 Hydrocodone/Acetaminophen 5 Ml Udcup PO 03/19/22 23:03 10 ml Q4HPRN PRN Administration PAIN Sodium Chloride 1,000 mls @ 50 mls/hr 03/14/22 23:04 03/14/22 23:46 Sodium Chloride 0.9% 1000 Ml IV 04/13/22 23:03 50 mls/hr .Q20H ELOY Administration Ceftriaxone Sodium/Dextrose 1 g in 50 mls @ 100 mls/hr 03/15/22 22:00 Rocephin 1 Gm-D5w 50 Ml Bag IV 03/18/22 21:59 QPM ELOY Azithromycin 500 mg in 250 mls @ 250 mls/hr 03/15/22 22:00 Zithromax 500 Mg/ 250 Ml Nacl Premix IV 04/14/22 09:59 QPM ELOY Insulin Human Regular 0 unit 03/14/22 23:04 03/15/22 08:30 Insulin Regular, Human 1 Unit SQ 04/13/22 23:03 7 unit UD PRN Administration HYPERGLYCEMIA Ondansetron HCl 4 mg 03/14/22 23:04 Ondansetron Hcl 4 Mg/2 Ml Vial IV 04/13/22 23:03 Q6H PRN PRN NAUSEA/VOMITING Discontinued Medications Generic Name Dose Route Start Last Admin Trade Name Freq PRN Reason Stop Dose Admin Hydrocodone Bitart/Acetaminophen 15 ml 03/14/22 21:21 03/14/22 21:36 Hydrocodone/Acetaminophen 5 Ml Udcup PO 03/14/22 21:22 15 ml STAT STA Administration Hydrocodone Bitart/Acetaminophen Confirm 03/14/22 21:34 Hydrocodone/Acetaminophen 5 Ml Udcup Administered 03/14/22 21:35 Dose 15 ml .ROUTE .STK-MED ONE Albuterol Sulfate Confirm 03/14/22 20:06 Albuterol Sulfate 2.5 Mg/3 Ml Neb Administered 03/14/22 20:07 Dose 2.5 mg IH .STK-MED ONE Albuterol Sulfate 2.5 mg 03/14/22 20:05 03/14/22 20:05 Albuterol Sulfate 2.5 Mg/3 Ml Neb IH 03/14/22 20:06 2.5 mg STAT ONE Administration Sodium Chloride 1,000 mls @ 999 mls/hr 03/14/22 17:07 03/14/22 18:48 Sodium Chloride 0.9% 1000 Ml IV 03/14/22 18:07 Infused .Q1H1M STA Infusion Sodium Chloride Confirm 03/14/22 17:35 Sodium Chloride 0.9% 1000 Ml Administered 03/14/22 17:36 Dose 1,000 mls @ ud .ROUTE .STK-MED ONE Sodium Chloride 1,000 mls @ 999 mls/hr 03/14/22 18:31 03/14/22 19:59 Sodium Chloride 0.9% 1000 Ml IV 03/14/22 19:31 Infused .Q1H1M STA Infusion Sodium Chloride Confirm 03/14/22 18:42 Sodium Chloride 0.9% 1000 Ml Administered 03/14/22 18:43 Dose 1,000 mls @ ud .ROUTE .STK-MED ONE Ceftriaxone Sodium/Dextrose 1 g in 50 mls @ 100 mls/hr 03/14/22 20:25 03/14/22 21:04 Rocephin 1 Gm-D5w 50 Ml Bag IV 03/14/22 20:54 Infused STAT STA Infusion Ceftriaxone Sodium/Dextrose Confirm 03/14/22 20:29 Rocephin 1 Gm-D5w 50 Ml Bag Administered 03/14/22 20:30 Dose 1 g in 50 mls @ ud IV .STK-MED ONE Azithromycin 500 mg in 250 mls @ 250 mls/hr 03/15/22 10:00 03/14/22 23:48 Zithromax 500 Mg/ 250 Ml Nacl Premix IV 04/14/22 09:59 250 mls/hr Q24H10 ELOY Administration Morphine Sulfate 4 mg 03/14/22 18:46 03/14/22 18:56 Morphine Sulfate 4 Mg/Ml Injection IV 03/14/22 18:47 4 mg STAT ONE Administration Morphine Sulfate Confirm 03/14/22 18:52 Morphine Sulfate 4 Mg/Ml Injection Administered 03/14/22 18:53 Dose 4 mg .ROUTE .STK-MED ONE Ondansetron HCl 4 mg 03/14/22 18:46 03/14/22 18:53 Ondansetron Hcl 4 Mg/2 Ml Vial IV 03/14/22 18:47 4 mg STAT ONE Administration Ondansetron HCl Confirm 03/14/22 18:51 Ondansetron Hcl 4 Mg/2 Ml Vial Administered 03/14/22 18:52 Dose 4 mg .ROUTE .STK-MED ONE Intake & Output (Last 24 hours) 03/12/22 03/13/22 03/14/22 03/15/22 11:59 11:59 11:59 11:59 Intake Total 2683 Balance 2683 Weight 70.8 kg Microbiology Results (Last 24 hours) 03/14/22 19:00 Urine, Void Urine Culture - Preliminary NO GROWTH TO DATE Laboratory Results (Last 24 hours) 03/15/22 03/15/22 03/15/22 07:17 04:35 02:54 WBC RBC Hgb Hct MCV MCH MCHC RDW Plt Count MPV Gran % Immature Gran % (Auto) Nucleat RBC Rel Count Eos # (Auto) Immature Gran # (Auto) Absolute Lymphs (auto) Absolute Monos (auto) Absolute Nucleated RBC Lymphocytes % Monocytes % Eosinophils % Basophils % Absolute Granulocytes Basophils # D-Dimer Sodium 131 L Potassium 3.5 Chloride 100 Carbon Dioxide 20 L Anion Gap 15.3 H BUN 6 L Creatinine 0.61 Estimated GFR > 60.0 Glucose 394 H POC Glucometer 280 H 434 H Calcium 8.0 L Total Bilirubin 0.30 AST 34 ALT 39 H Alkaline Phosphatase 218 H Troponin I Serum Total Protein 5.9 L Albumin 3.1 L Urine Color Urine Appearance Urine pH Ur Specific [place] Urine Protein Urine Glucose (UA) Urine Ketones Urine Blood Urine Nitrite Urine Bilirubin Urine Urobilinogen Ur Leukocyte Esterase U Hyaline Cast (Auto) Urine Microscopic RBC Urine Microscopic WBC Ur Epithelial Cells Urine Bacteria Urine Culture Reflexed Group A Strep Antibody 03/15/22 03/15/22 03/14/22 02:54 02:54 23:25 WBC 12.9 H RBC 3.44 L Hgb 10.9 L Hct 33.6 L MCV 97.7 MCH 31.7 MCHC 32.4 RDW 14.0 Plt Count 362 MPV 9.4 Gran % 69.1 H Immature Gran % (Auto) 0.5 H Nucleat RBC Rel Count 0.0 Eos # (Auto) 0.09 Immature Gran # (Auto) 0.07 H Absolute Lymphs (auto) 2.83 Absolute Monos (auto) 0.91 Absolute Nucleated RBC 0.00 Lymphocytes % 22.0 L Monocytes % 7.1 Eosinophils % 0.7 Basophils % 0.6 Absolute Granulocytes 8.87 H Basophils # 0.08 D-Dimer Sodium Potassium Chloride Carbon Dioxide Anion Gap BUN Creatinine Estimated GFR Glucose POC Glucometer 461 H Calcium Total Bilirubin AST ALT Alkaline Phosphatase Troponin I < 0.012 Serum Total Protein Albumin Urine Color Urine Appearance Urine pH Ur Specific [place] Urine Protein Urine Glucose (UA) Urine Ketones Urine Blood Urine Nitrite Urine Bilirubin Urine Urobilinogen Ur Leukocyte Esterase U Hyaline Cast (Auto) Urine Microscopic RBC Urine Microscopic WBC Ur Epithelial Cells Urine Bacteria Urine Culture Reflexed Group A Strep Antibody 03/14/22 03/14/22 03/14/22 21:47 19:00 17:25 WBC RBC Hgb Hct MCV MCH MCHC RDW Plt Count MPV Gran % Immature Gran % (Auto) Nucleat RBC Rel Count Eos # (Auto) Immature Gran # (Auto) Absolute Lymphs (auto) Absolute Monos (auto) Absolute Nucleated RBC Lymphocytes % Monocytes % Eosinophils % Basophils % Absolute Granulocytes Basophils # D-Dimer Sodium Potassium Chloride Carbon Dioxide Anion Gap BUN Creatinine Estimated GFR Glucose POC Glucometer Calcium Total Bilirubin AST ALT Alkaline Phosphatase Troponin I < 0.012 Serum Total Protein Albumin Urine Color Yellow Urine Appearance Clear Urine pH 6.0 Ur Specific [place] 1.020 Urine Protein 300 A Urine Glucose (UA) >=1000 A Urine Ketones 15 A Urine Blood Small A Urine Nitrite Negative Urine Bilirubin Negative Urine Urobilinogen 1.0 A Ur Leukocyte Esterase Negative U Hyaline Cast (Auto) NONE SEEN Urine Microscopic RBC 0-2 Urine Microscopic WBC 0-2 Ur Epithelial Cells Rare Urine Bacteria None Seen Urine Culture Reflexed YES Group A Strep Antibody NOT DETECTED 03/14/22 03/14/22 03/14/22 17:25 17:25 17:25 WBC RBC Hgb Hct MCV MCH MCHC RDW Plt Count MPV Gran % Immature Gran % (Auto) Nucleat RBC Rel Count Eos # (Auto) Immature Gran # (Auto) Absolute Lymphs (auto) Absolute Monos (auto) Absolute Nucleated RBC Lymphocytes % Monocytes % Eosinophils % Basophils % Absolute Granulocytes Basophils # D-Dimer 0.35 Sodium 133 L Potassium 3.7 Chloride 95 L Carbon Dioxide 29 Anion Gap 12.9 BUN 5 L Creatinine 0.62 Estimated GFR > 60.0 Glucose 230 H POC Glucometer Calcium 8.9 Total Bilirubin AST ALT Alkaline Phosphatase Troponin I < 0.012 Serum Total Protein Albumin Urine Color Urine Appearance Urine pH Ur Specific [place] Urine Protein Urine Glucose (UA) Urine Ketones Urine Blood Urine Nitrite Urine Bilirubin Urine Urobilinogen Ur Leukocyte Esterase U Hyaline Cast (Auto) Urine Microscopic RBC Urine Microscopic WBC Ur Epithelial Cells Urine Bacteria Urine Culture Reflexed Group A Strep Antibody Orders (Last 24 hours) Category Date Time Status Up With Assistance TOLERATED Activity 03/14/22 23:04 Active Code Status Order ROUTINE Care 03/14/22 23:04 Active EKG-ER Only STAT Care 03/14/22 17:07 Completed Elevate HOB TOLERATED Care 03/14/22 23:04 Active IV Insertion STAT Care 03/14/22 17:07 Completed POCT Glucose Check ACHS Care 03/14/22 23:[address] in Observation ROUTINE Care 03/14/22 23:04 Active Pulse Oximetry (ED) STAT Care 03/14/22 17:07 Completed Weight,Daily 0600 Care 03/14/22 23:04 Active Consistent Carbohydrate Diet 1999 Calorie Diet 03/15/22 Breakfast Active BMP Stat Lab 03/14/22 17:25 Completed CBC W DIFF AM.LAB Lab 03/15/22 02:54 Completed CMP AM.LAB Lab 03/15/22 02:54 Completed CULTURE,URINE Stat Lab 03/14/22 19:00 Results D-DIMER QUANTITATIVE Stat Lab 03/14/22 17:25 Completed Group A Strep Stat Lab 03/14/22 17:25 Completed POCT GLUCOSE Stat Lab 03/14/22 23:25 Completed POCT GLUCOSE Stat Lab 03/15/22 04:35 Completed POCT GLUCOSE Stat Lab 03/15/22 07:17 Completed TROPONIN Q4H Lab 03/14/22 17:25 Completed TROPONIN Q4H Lab 03/14/22 21:47 Completed TROPONIN Q4H Lab 03/15/22 02:54 Completed UA W/RFX UR CULTURE Stat Lab 03/14/22 19:00 Completed Acetaminophen 325 mg [Tylenol 325 mg] Med 03/14/22 23:04 Active 650 mg PO Q4H PRN PRN Albuterol 2.5 mg/3 ml Neb [Proventil 2.5 mg/3 ml Neb Med 03/14/22 20:06 Discontinued ] 2.5 mg IH .STK-MED ONE Albuterol 2.5 mg/3 ml Neb [Proventil 2.5 mg/3 ml Neb Med 03/14/22 20:05 Discontinued ] 2.5 mg IH STAT ONE Azithromycin 500 mg/250 ml [Zithromax 500 MG/ 250 ML Med 03/15/22 10:00 Discontinued NaCl Premix] 500 mg in 250 ml IV Q24H10 Azithromycin 500 mg/250 ml [Zithromax 500 MG/ 250 ML Med 03/15/22 22:00 Active NaCl Premix] 500 mg in 250 ml IV QPM Ceftriaxone 1 GM/50 ML PREMIX* [ROCEPHIN 1 Gm-D5w 50 ml Med 03/15/22 22:00 Active Bag] 1 g in 50 ml IV QPM Ceftriaxone 1 GM/50 ML PREMIX* [ROCEPHIN 1 Gm-D5w 50 ml Med 03/14/22 20:25 Discontinued Bag] 1 g in 50 ml IV STAT Ceftriaxone 1 GM/50 ML PREMIX* [ROCEPHIN 1 Gm-D5w 50 ml Med 03/14/22 20:29 Discontinued Bag] 1 g in 50 ml IV UD Hydrocodone/Acetaminophen [Hydrocodone-Acetamin 2.5-108 Med 03/14/22 23:04 Active /5 ml Solution] 10 ml PO Q4HPRN PRN Hydrocodone/Acetaminophen [Hydrocodone-Acetamin 2.5-108 Med 03/14/22 21:34 Discontinued /5 ml Solution] 15 ml .ROUTE .STK-MED ONE Hydrocodone/Acetaminophen [Hydrocodone-Acetamin 2.5-108 Med 03/14/22 21:21 Discontinued /5 ml Solution] 15 ml PO STAT STA Insulin Regular, Human [Humulin R] Med 03/14/22 23:04 Active See Dose Instructions SQ UD PRN Morphine Sulfate 4 mg Inj Med 03/14/22 18:52 Discontinued 4 mg .ROUTE .STK-MED ONE Morphine Sulfate 4 mg Inj Med 03/14/22 18:46 Discontinued 4 mg IV STAT ONE NaCl 0.9% 1000 ml [Sodium Chloride 0.9% 1000 ML] 1,000 Med 03/14/22 17:35 Discontinued ml .ROUTE UD NaCl 0.9% 1000 ml [Sodium Chloride 0.9% 1000 ML] 1,000 Med 03/14/22 18:42 Discontinued ml .ROUTE UD NaCl 0.9% 1000 ml [Sodium Chloride 0.9% 1000 ML] 1,000 Med 03/14/22 23:04 Active ml IV 50 mls/hr NaCl 0.9% 1000 ml [Sodium Chloride 0.9% 1000 ML] 1,000 Med 03/14/22 17:07 Discontinued ml IV 999 mls/hr NaCl 0.9% 1000 ml [Sodium Chloride 0.9% 1000 ML] 1,000 Med 03/14/22 18:31 Discontinued ml IV 999 mls/hr Ondansetron HCl 4 mg/2 ml [Zofran 4 MG/2 ML VIAL] Med 03/14/22 18:51 Discontinued 4 mg .ROUTE .STK-MED ONE Ondansetron HCl 4 mg/2 ml [Zofran 4 MG/2 ML VIAL] Med 03/14/22 23:04 Active 4 mg IV Q6H PRN PRN Ondansetron HCl 4 mg/2 ml [Zofran 4 MG/2 ML VIAL] Med 03/14/22 18:46 Discontinued 4 mg IV STAT ONE Incentive Spirometry UD RT 03/14/22 21:07 Completed Oxygen Nasal Cannula 2 lpm RT 03/14/22 23:04 Active Pulse Oximetry ROUTINE RT 03/14/22 23:04 Active Respiratory Therapy Assessment DAILY RT 03/14/22 21:07 Completed Respiratory Therapy Assessment DAILY RT 03/15/22 00:04 Active Respiratory Therapy Consult ROUTINE RT 03/14/22 23:04 Completed Code(s): R91.8 - OTHER NONSPECIFIC ABNORMAL FINDING OF LUNG FIELD (2) Hypoxia Current Visit: Yes Status: Acute Code(s): R09.02 - HYPOXEMIA
[2022-03-15] MEDS ORDERED: MEDROXYPROGESTERONE ACETATE IM SCH (13:15)
[2022-03-15] MEDS: HUMALOG SQ SCH (16:41)
[2022-03-15] MEDS: Sodium Chloride 0.9% 1000 ML 1,000 ML IV SCH (19:55)
[2022-03-15] MEDS ORDERED: NON-FORMULARY ITEM (Insulin Glargine,Hum.Rec.Anlog [Toujeo Solostar] 300 UNIT/ML Insuln.Pe SQ SCH (22:00)
[2022-03-15] MEDS ORDERED: Lantus Insulin SQ SCH (22:00)
[2022-03-15] MEDS ORDERED: ROCEPHIN 1 Gm-D5w 50 ml Bag** 1 G/50 ML IVPB IV SCH (22:00)
[2022-03-16] MEDS: HYDROCODONE-ACETAMIN 2.5-108/5 ML SOLUTION PO PRN ×3 (01:51→09:54)
[2022-03-16 06:27] LABS: Absolute Neutrophil Ct (ANC) 7.59 x10^3/uL (1.4-6.9); BASOPHIL % 0.6 % (0.0-0.4); Basophil (Absolute #) 0.07 x10^3/uL (0-0.4); Eosinophil % 2.6 % (0.00-5.0); Hematocrit 34.1 % (35-47); Hemoglobin 11.1 g/dL (12.0-16.0); IMMATURE GRAN # 0.05 x10^3u/L (0.00-0.03); IMMATURE GRAN % 0.4 % (0.00-0.4); Lymphocyte (Absolute #) 3.12 x10^3/uL (1.0-4.6); Lymphocytes % 26.6 % (24.0-44.0); Mean Cell Volume 94.7 fL (78-100); Mean Corpuscular Hemoglobin 30.8 pg (26-32); Mean Corpuscular Hgb Concent. 32.6 g/dL (32-36); Mean Platelet Volume 9.3 fL (7.5-11.0); Monocyte (Absolute #) 0.58 x10^3/uL (0.0-1.3); Neutrophil % 64.8 % (36.0-66.0); Platelet Count 376 x10^3/uL (150-450); Red Cell Distribution Width 14.2 % (11.5-14.0); White Blood Count 11.7 x10^3/uL (4.0-10.5)
[2022-03-16 06:40] LABS: ALBUMIN 3.1 g/dL (3.5-5.0); ALKALINE PHOSPHATASE 211 U/L (38-126); ANION GAP 5.1 MEQ/L (5-15); BLOOD UREA NITROGEN 4 mg/dL (7-17); CHLORIDE 106 mmol/L (98-107); Calcium 8.2 mg/dL (8.4-10.2); Carbon Dioxide 28 mmol/L (22-30); Creatinine 1 0.49 mg/dL (0.52-1.04); EST GLOMERULAR FILTRATION RATE > 60.0 ML/MIN; Glucose 147 mg/dL (74-106); Potassium 3.6 mmol/L (3.5-5.1); SGOT/AST 55 U/L (14-36); SGPT/ALT 32 U/L (0-35); SODIUM 135 mmol/L (137-145); Total Protein 6.2 g/dL (6.3-8.2)
--- NOTE | 2022-03-16 08:06 | PCM.DS ---
Discharge Summary Date of Admission: 03/14/22 22:58 Admitting Physician: STEVIE SALINAS Primary Care Provider: ALAN WILCOX Allergies Allergies No Known Drug Allergies Allergy (Verified 08/20/21 20:33) Hospital Summary - Hospital Course Hospital Course: Chief Complaint Diagnosis c/o cough,fever, bodyache for 1-2 days Allergies Allergy/AdvReac Type Severity Reaction Status Date / Time No Known Drug Allergies Allergy Verified 08/20/21 20:33 Vital Signs (Last 24 hours) Temp Pulse Resp BP Pulse Ox 03/16/22 05:55 100 H 18 94 L 03/16/22 04:00 97.8 F 99 H 17 149/79 92 L 03/15/22 23:44 97.5 F 110 H 16 147/74 95 03/15/22 19:38 97.7 F 103 H 17 139/65 94 L 03/15/22 18:10 100 H 18 92 L 03/15/22 16:00 97.8 F 81 18 151/80 96 03/15/22 11:22 97.5 F 103 H 18 141/72 96 Home Medications Medication Instructions Recorded Confirmed Last Taken Type Fluticasone/Salmeterol 115/21* 2 puff IH BIDRT #1 inh 03/16/22 Unknown Rx [Advair Hfa 115/21 Mcg Inhaler] cephALEXin [Cephalexin] 500 mg PO QID 7 Days #28 tablet 03/16/22 Unknown Rx Current Medications Generic Name Dose Route Start Last Admin Trade Name Freq PRN Reason Stop Dose Admin Acetaminophen 650 mg 03/14/22 23:04 03/16/22 01:55 Acetaminophen 325 Mg Tablet PO 04/13/22 23:03 650 mg Q4H PRN PRN Administration PAIN, FEVER, HEADACHE Hydrocodone Bitart/Acetaminophen 10 ml 03/14/22 23:04 03/16/22 05:56 Hydrocodone/Acetaminophen 5 Ml Udcup PO 03/19/22 23:03 10 ml Q4HPRN PRN Administration PAIN Sodium Chloride 1,000 mls @ 50 mls/hr 03/14/22 23:04 03/15/22 19:55 Sodium Chloride 0.9% 1000 Ml IV 04/13/22 23:03 50 mls/hr .Q20H ELOY Administration Ceftriaxone Sodium/Dextrose 1 g in 50 mls @ 100 mls/hr 03/15/22 22:00 03/15/22 22:22 Rocephin 1 Gm-D5w 50 Ml Bag IV 03/18/22 21:59 100 mls/hr QPM ELOY Administration Azithromycin 500 mg in 250 mls @ 250 mls/hr 03/15/22 22:00 03/15/22 21:43 Zithromax 500 Mg/ 250 Ml Nacl Premix IV 04/14/22 09:59 250 mls/hr QPM ELOY Administration Insulin Glargine 20 unit 03/15/22 22:00 03/15/22 21:45 Insulin Glargine 1 Unit SQ 04/14/22 21:59 20 unit HS ELOY Administration Insulin Human Lispro 14 unit 03/15/22 16:30 03/15/22 16:41 Insulin Lispro 1 Unit SQ 04/14/22 16:29 14 unit AC ELOY Administration Insulin Human Regular 0 unit 03/14/22 23:04 03/15/22 21:44 Insulin Regular, Human 1 Unit SQ 04/13/22 23:03 5 unit UD PRN Administration HYPERGLYCEMIA Ondansetron HCl 4 mg 03/14/22 23:04 Ondansetron Hcl 4 Mg/2 Ml Vial IV 04/13/22 23:03 Q6H PRN PRN NAUSEA/VOMITING Discontinued Medications Generic Name Dose Route Start Last Admin Trade Name Freq PRN Reason Stop Dose Admin Hydrocodone Bitart/Acetaminophen 15 ml 03/14/22 21:21 03/14/22 21:36 Hydrocodone/Acetaminophen 5 Ml Udcup PO 03/14/22 21:22 15 ml STAT STA Administration Hydrocodone Bitart/Acetaminophen Confirm 03/14/22 21:34 Hydrocodone/Acetaminophen 5 Ml Udcup Administered 03/14/22 21:35 Dose 15 ml .ROUTE .STK-MED ONE Albuterol Sulfate Confirm 03/14/22 20:06 Albuterol Sulfate 2.5 Mg/3 Ml Neb Administered 03/14/22 20:07 Dose 2.5 mg IH .STK-MED ONE Albuterol Sulfate 2.5 mg 03/14/22 20:05 03/14/22 20:05 Albuterol Sulfate 2.5 Mg/3 Ml Neb IH 03/14/22 20:06 2.5 mg STAT ONE Administration Sodium Chloride 1,000 mls @ 999 mls/hr 03/14/22 17:07 03/14/22 18:48 Sodium Chloride 0.9% 1000 Ml IV 03/14/22 18:07 Infused .Q1H1M STA Infusion Sodium Chloride Confirm 03/14/22 17:35 Sodium Chloride 0.9% 1000 Ml Administered 03/14/22 17:36 Dose 1,000 mls @ ud .ROUTE .STK-MED ONE Sodium Chloride 1,000 mls @ 999 mls/hr 03/14/22 18:31 03/14/22 19:59 Sodium Chloride 0.9% 1000 Ml IV 03/14/22 19:31 Infused .Q1H1M STA Infusion Sodium Chloride Confirm 03/14/22 18:42 Sodium Chloride 0.9% 1000 Ml Administered 03/14/22 18:43 Dose 1,000 mls @ ud .ROUTE .STK-MED ONE Ceftriaxone Sodium/Dextrose 1 g in 50 mls @ 100 mls/hr 03/14/22 20:25 03/14/22 21:04 Rocephin 1 Gm-D5w 50 Ml Bag IV 03/14/22 20:54 Infused STAT STA Infusion Ceftriaxone Sodium/Dextrose Confirm 03/14/22 20:29 Rocephin 1 Gm-D5w 50 Ml Bag Administered 03/14/22 20:30 Dose 1 g in 50 mls @ ud IV .STK-MED ONE Azithromycin 500 mg in 250 mls @ 250 mls/hr 03/15/22 10:00 03/14/22 23:48 Zithromax 500 Mg/ 250 Ml Nacl Premix IV 04/14/22 09:59 250 mls/hr Q24H10 ELOY Administration Morphine Sulfate 4 mg 03/14/22 18:46 03/14/22 18:56 Morphine Sulfate 4 Mg/Ml Injection IV 03/14/22 18:47 4 mg STAT ONE Administration Morphine Sulfate Confirm 03/14/22 18:52 Morphine Sulfate 4 Mg/Ml Injection Administered 03/14/22 18:53 Dose 4 mg .ROUTE .STK-MED ONE Ondansetron HCl 4 mg 03/14/22 18:46 03/14/22 18:53 Ondansetron Hcl 4 Mg/2 Ml Vial IV 03/14/22 18:47 4 mg STAT ONE Administration Ondansetron HCl Confirm 03/14/22 18:51 Ondansetron Hcl 4 Mg/2 Ml Vial Administered 03/14/22 18:52 Dose 4 mg .ROUTE .STK-MED ONE Intake & Output (Last 24 hours) 03/13/22 03/14/22 03/15/22 03/16/22 11:59 11:59 11:59 11:59 Intake Total 2803 3609 Balance 2803 3609 Weight 70.8 kg 72.5 kg Microbiology Results (Last 24 hours) 03/14/22 19:00 Urine, Void Urine Culture - Preliminary NO GROWTH TO DATE Laboratory Results (Last 24 hours) 03/16/22 03/16/22 03/16/22 06:51 05:47 05:47 WBC 11.7 H RBC 3.60 L Hgb 11.1 L Hct 34.1 L MCV 94.7 MCH 30.8 MCHC 32.6 RDW 14.2 H Plt Count 376 MPV 9.3 Gran % 64.8 Immature Gran % (Auto) 0.4 Nucleat RBC Rel Count 0.0 Eos # (Auto) 0.30 Immature Gran # (Auto) 0.05 H Absolute Lymphs (auto) 3.12 Absolute Monos (auto) 0.58 Absolute Nucleated RBC 0.00 Lymphocytes % 26.6 Monocytes % 5.0 Eosinophils % 2.6 Basophils % 0.6 Absolute Granulocytes 7.59 H Basophils # 0.07 Sodium 135 L Potassium 3.6 Chloride 106 Carbon Dioxide 28 Anion Gap 5.1 BUN 4 L Creatinine 0.49 L Estimated GFR > 60.0 Glucose 147 H POC Glucometer 143 H Calcium 8.2 L Total Bilirubin 0.20 AST 55 H ALT 32 Alkaline Phosphatase 211 H Serum Total Protein 6.2 L Albumin 3.1 L 03/15/22 03/15/22 03/15/22 20:31 16:24 11:10 WBC RBC Hgb Hct MCV MCH MCHC RDW Plt Count MPV Gran % Immature Gran % (Auto) Nucleat RBC Rel Count Eos # (Auto) Immature Gran # (Auto) Absolute Lymphs (auto) Absolute Monos (auto) Absolute Nucleated RBC Lymphocytes % Monocytes % Eosinophils % Basophils % Absolute Granulocytes Basophils # Sodium Potassium Chloride Carbon Dioxide Anion Gap BUN Creatinine Estimated GFR Glucose POC Glucometer 241 H 400 H 196 H Calcium Total Bilirubin AST ALT Alkaline Phosphatase Serum Total Protein Albumin Orders (Last 24 hours) Category Date Time Status Discharge Routine Discharge 03/16/22 07:35 Ordered CBC W DIFF AM.LAB Lab 03/16/22 05:47 Completed CMP AM.LAB Lab 03/16/22 05:47 Completed POCT GLUCOSE Stat Lab 03/15/22 07:17 Completed POCT GLUCOSE Stat Lab 03/15/22 11:10 Completed POCT GLUCOSE Stat Lab 03/15/22 16:24 Completed POCT GLUCOSE Stat Lab 03/15/22 20:31 Completed POCT GLUCOSE Stat Lab 03/16/22 06:51 Completed Azithromycin 500 mg/250 ml [Zithromax 500 MG/ 250 ML Med 03/15/22 10:00 Discontinued NaCl Premix] 500 mg in 250 ml IV Q24H10 Azithromycin 500 mg/250 ml [Zithromax 500 MG/ 250 ML Med 03/15/22 22:00 Active NaCl Premix] 500 mg in 250 ml IV QPM Ceftriaxone 1 GM/50 ML PREMIX* [ROCEPHIN 1 Gm-D5w 50 ml Med 03/15/22 22:00 Active Bag] 1 g in 50 ml IV QPM Insulin Glargine [Lantus Insulin] Med 03/15/22 22:00 Active 20 unit SQ HS Insulin Lispro [Humalog] Med 03/15/22 16:30 Active 14 unit SQ AC - Vitals & Intake/Output Vital Signs: Vital Signs Temperature 97.8 F 03/16/22 04:00 Pulse Rate 100 H 03/16/22 05:55 Respiratory Rate 18 03/16/22 05:55 Blood Pressure 149/79 03/16/22 04:00 O2 Sat by Pulse Oximetry 94 L 03/16/22 05:55 Intake & Output: Intake & Output 03/13/22 03/14/22 03/15/22 03/16/22 11:59 11:59 11:59 11:59 Intake Total 2803 3609 Balance 2803 3609 Weight 70.8 kg 72.5 kg - Lab Result Diagrams: 03/16/22 05:47 03/16/22 05:47 Lab Results-Last 24 Hrs: Lab Results-Last 24 Hours 03/15/22 03/15/22 03/15/22 Range/Units 11:10 16:24 20:31 WBC (4.0-10.5) x10^3/uL RBC (4.1-5.4) x10^6/uL Hgb (12.0-16.0) g/dL Hct (35-47) % MCV (78-100) fL MCH (26-32) pg MCHC (32-36) g/dL RDW (11.5-14.0) % Plt Count (150-450) x10^3/uL MPV (7.5-11.0) fL Gran % (36.0-66.0) % Immature Gran % (Auto) (0.00-0.4) % Nucleat RBC Rel Count (0.00-0.1) % Eos # (Auto) (0-0.5) x10^3/uL Immature Gran # (Auto) (0.00-0.03) x10^3u/L Absolute Lymphs (auto) (1.0-4.6) x10^3/uL Absolute Monos (auto) (0.0-1.3) x10^3/uL Absolute Nucleated RBC (0.00-0.01) x10^3u/L Lymphocytes % (24.0-44.0) % Monocytes % (0.0-12.0) % Eosinophils % (0.00-5.0) % Basophils % (0.0-0.4) % Absolute Granulocytes (1.4-6.9) x10^3/uL Basophils # (0-0.4) x10^3/uL Sodium (137-145) mmol/L Potassium (3.5-5.1) mmol/L Chloride (98-107) mmol/L Carbon Dioxide (22-30) mmol/L Anion Gap (5-15) MEQ/L BUN (7-17) mg/dL Creatinine (0.52-1.04) mg/dL Estimated GFR ML/MIN Glucose (74-106) mg/dL POC Glucometer 196 H 400 H 241 H (74 to 106) mg/dL Calcium (8.4-10.2) mg/dL Total Bilirubin (0.2-1.3) mg/dL AST (14-36) U/L ALT (0-35) U/L Alkaline Phosphatase (38-126) U/L Serum Total Protein (6.3-8.2) g/dL Albumin (3.5-5.0) g/dL 03/16/22 03/16/22 03/16/22 Range/Units 05:47 05:47 06:51 WBC 11.7 H (4.0-10.5) x10^3/uL RBC 3.60 L (4.1-5.4) x10^6/uL Hgb 11.1 L (12.0-16.0) g/dL Hct 34.1 L (35-47) % MCV 94.7 (78-100) fL MCH 30.8 (26-32) pg MCHC 32.6 (32-36) g/dL RDW 14.2 H (11.5-14.0) % Plt Count 376 (150-450) x10^3/uL MPV 9.3 (7.5-11.0) fL Gran % 64.8 (36.0-66.0) % Immature Gran % (Auto) 0.4 (0.00-0.4) % Nucleat RBC Rel Count 0.0 (0.00-0.1) % Eos # (Auto) 0.30 (0-0.5) x10^3/uL Immature Gran # (Auto) 0.05 H (0.00-0.03) x10^3u/L Absolute Lymphs (auto) 3.12 (1.0-4.6) x10^3/uL Absolute Monos (auto) 0.58 (0.0-1.3) x10^3/uL Absolute Nucleated RBC 0.00 (0.00-0.01) x10^3u/L Lymphocytes % 26.6 (24.0-44.0) % Monocytes % 5.0 (0.0-12.0) % Eosinophils % 2.6 (0.00-5.0) % Basophils % 0.6 (0.0-0.4) % Absolute Granulocytes 7.59 H (1.4-6.9) x10^3/uL Basophils # 0.07 (0-0.4) x10^3/uL Sodium 135 L (137-145) mmol/L Potassium 3.6 (3.5-5.1) mmol/L Chloride 106 (98-107) mmol/L Carbon Dioxide 28 (22-30) mmol/L Anion Gap 5.1 (5-15) MEQ/L BUN 4 L (7-17) mg/dL Creatinine 0.49 L (0.52-1.04) mg/dL Estimated GFR > 60.0 ML/MIN Glucose 147 H (74-106) mg/dL POC Glucometer 143 H (74 to 106) mg/dL Calcium 8.2 L (8.4-10.2) mg/dL Total Bilirubin 0.20 (0.2-1.3) mg/dL AST 55 H (14-36) U/L ALT 32 (0-35) U/L Alkaline Phosphatase 211 H (38-126) U/L Serum Total Protein 6.2 L (6.3-8.2) g/dL Albumin 3.1 L (3.5-5.0) g/dL Micro Results-Entire Visit: Microbiology 03/14/22 19:00 Urine Culture - Preliminary Urine, Void NO GROWTH TO DATE Accuchecks Date 03/15/22 Date 03/15/22 Date 03/15/22 Time 20:30 - Procedures and Test Procedures and Tests throughout Hospitalization: Therapy Orders & Screens 03/14/22 21:07 Incentive Spirometry UD Comment: Respiratory Therapy Assessment DAILY Comment: 03/14/22 23:04 Oxygen Nasal Cannula 2 lpm Comment: Respiratory Therapy Consult ROUTINE Comment: Reason For Exam: 03/15/22 00:04 Respiratory Therapy Assessment DAILY Comment: Discharge Exam General Appearance: no apparent distress, alert Neurologic Exam: alert, oriented x 3, cooperative, normal mood/affect, nml cerebellar function, sensation nml, No motor deficits Eye Exam: PERRL, EOMI, eyes nml inspection Ears, Nose, Throat Exam: normal ENT inspection, pharynx normal, moist mucous membranes Neck Exam: normal inspection, non-tender, supple, full range of motion Respiratory Exam: diminished breath sounds, No respiratory distress Cardiovascular Exam: regular rate/rhythm, normal heart sounds Gastrointestinal/Abdomen Exam: soft, No tenderness, No mass Pelvic Exam: deferred Rectal Exam: deferred Back Exam: normal inspection, normal range of motion, No CVA tenderness, No vertebral tenderness Extremity Exam: normal inspection, normal range of motion Skin Exam: normal color, warm, dry Final Diagnosis/Problem List - Final Discharge Diagnosis/Problem (1) Infiltrate of lung present on chest x-ray Current Visit: Yes Status: Resolved Assessment & Plan: Chief Complaint Diagnosis c/o cough,fever, bodyache for 1-2 days Allergies Allergy/AdvReac Type Severity Reaction Status Date / Time No Known Drug Allergies Allergy Verified 08/20/21 20:33 Vital Signs (Last 24 hours) Temp Pulse Resp BP Pulse Ox 03/16/22 05:55 100 H 18 94 L 03/16/22 04:00 97.8 F 99 H 17 149/79 92 L 03/15/22 23:44 97.5 F 110 H 16 147/74 95 03/15/22 19:38 97.7 F 103 H 17 139/65 94 L 03/15/22 18:10 100 H 18 92 L 03/15/22 16:00 97.8 F 81 18 151/80 96 03/15/22 11:22 97.5 F 103 H 18 141/72 96 Home Medications Medication Instructions Recorded Confirmed Last Taken Type Fluticasone/Salmeterol 115/21* 2 puff IH BIDRT #1 inh 03/16/22 Unknown Rx [Advair Hfa 115/21 Mcg Inhaler] cephALEXin [Cephalexin] 500 mg PO QID 7 Days #28 tablet 03/16/22 Unknown Rx Current Medications Generic Name Dose Route Start Last Admin Trade Name Freq PRN Reason Stop Dose Admin Acetaminophen 650 mg 03/14/22 23:04 03/16/22 01:55 Acetaminophen 325 Mg Tablet PO 04/13/22 23:03 650 mg Q4H PRN PRN Administration PAIN, FEVER, HEADACHE Hydrocodone Bitart/Acetaminophen 10 ml 03/14/22 23:04 03/16/22 05:56 Hydrocodone/Acetaminophen 5 Ml Udcup PO 03/19/22 23:03 10 ml Q4HPRN PRN Administration PAIN Sodium Chloride 1,000 mls @ 50 mls/hr 03/14/22 23:04 03/15/22 19:55 Sodium Chloride 0.9% 1000 Ml IV 04/13/22 23:03 50 mls/hr .Q20H ELOY Administration Ceftriaxone Sodium/Dextrose 1 g in 50 mls @ 100 mls/hr 03/15/22 22:00 03/15/22 22:22 Rocephin 1 Gm-D5w 50 Ml Bag IV 03/18/22 21:59 100 mls/hr QPM ELOY Administration Azithromycin 500 mg in 250 mls @ 250 mls/hr 03/15/22 22:00 03/15/22 21:43 Zithromax 500 Mg/ 250 Ml Nacl Premix IV 04/14/22 09:59 250 mls/hr QPM ELOY Administration Insulin Glargine 20 unit 03/15/22 22:00 03/15/22 21:45 Insulin Glargine 1 Unit SQ 04/14/22 21:59 20 unit HS ELOY Administration Insulin Human Lispro 14 unit 03/15/22 16:30 03/15/22 16:41 Insulin Lispro 1 Unit SQ 04/14/22 16:29 14 unit AC ELOY Administration Insulin Human Regular 0 unit 03/14/22 23:04 03/15/22 21:44 Insulin Regular, Human 1 Unit SQ 04/13/22 23:03 5 unit UD PRN Administration HYPERGLYCEMIA Ondansetron HCl 4 mg 03/14/22 23:04 Ondansetron Hcl 4 Mg/2 Ml Vial IV 04/13/22 23:03 Q6H PRN PRN NAUSEA/VOMITING Discontinued Medications Generic Name Dose Route Start Last Admin Trade Name Freq PRN Reason Stop Dose Admin Hydrocodone Bitart/Acetaminophen 15 ml 03/14/22 21:21 03/14/22 21:36 Hydrocodone/Acetaminophen 5 Ml Udcup PO 03/14/22 21:22 15 ml STAT STA Administration Hydrocodone Bitart/Acetaminophen Confirm 03/14/22 21:34 Hydrocodone/Acetaminophen 5 Ml Udcup Administered 03/14/22 21:35 Dose 15 ml .ROUTE .STK-MED ONE Albuterol Sulfate Confirm 03/14/22 20:06 Albuterol Sulfate 2.5 Mg/3 Ml Neb Administered 03/14/22 20:07 Dose 2.5 mg IH .STK-MED ONE Albuterol Sulfate 2.5 mg 03/14/22 20:05 03/14/22 20:05 Albuterol Sulfate 2.5 Mg/3 Ml Neb IH 03/14/22 20:06 2.5 mg STAT ONE Administration Sodium Chloride 1,000 mls @ 999 mls/hr 03/14/22 17:07 03/14/22 18:48 Sodium Chloride 0.9% 1000 Ml IV 03/14/22 18:07 Infused .Q1H1M STA Infusion Sodium Chloride Confirm 03/14/22 17:35 Sodium Chloride 0.9% 1000 Ml Administered 03/14/22 17:36 Dose 1,000 mls @ ud .ROUTE .STK-MED ONE Sodium Chloride 1,000 mls @ 999 mls/hr 03/14/22 18:31 03/14/22 19:59 Sodium Chloride 0.9% 1000 Ml IV 03/14/22 19:31 Infused .Q1H1M STA Infusion Sodium Chloride Confirm 03/14/22 18:42 Sodium Chloride 0.9% 1000 Ml Administered 03/14/22 18:43 Dose 1,000 mls @ ud .ROUTE .STK-MED ONE Ceftriaxone Sodium/Dextrose 1 g in 50 mls @ 100 mls/hr 03/14/22 20:25 03/14/22 21:04 Rocephin 1 Gm-D5w 50 Ml Bag IV 03/14/22 20:54 Infused STAT STA Infusion Ceftriaxone Sodium/Dextrose Confirm 03/14/22 20:29 Rocephin 1 Gm-D5w 50 Ml Bag Administered 03/14/22 20:30 Dose 1 g in 50 mls @ ud IV .STK-MED ONE Azithromycin 500 mg in 250 mls @ 250 mls/hr 03/15/22 10:00 03/14/22 23:48 Zithromax 500 Mg/ 250 Ml Nacl Premix IV 04/14/22 09:59 250 mls/hr Q24H10 ELOY Administration Morphine Sulfate 4 mg 03/14/22 18:46 03/14/22 18:56 Morphine Sulfate 4 Mg/Ml Injection IV 03/14/22 18:47 4 mg STAT ONE Administration Morphine Sulfate Confirm 03/14/22 18:52 Morphine Sulfate 4 Mg/Ml Injection Administered 03/14/22 18:53 Dose 4 mg .ROUTE .STK-MED ONE Ondansetron HCl 4 mg 03/14/22 18:46 03/14/22 18:53 Ondansetron Hcl 4 Mg/2 Ml Vial IV 03/14/22 18:47 4 mg STAT ONE Administration Ondansetron HCl Confirm 03/14/22 18:51 Ondansetron Hcl 4 Mg/2 Ml Vial Administered 03/14/22 18:52 Dose 4 mg .ROUTE .STK-MED ONE Intake & Output (Last 24 hours) 03/13/22 03/14/22 03/15/22 03/16/22 11:59 11:59 11:59 11:59 Intake Total 2803 3609 Balance 2803 3609 Weight 70.8 kg 72.5 kg Microbiology Results (Last 24 hours) 03/14/22 19:00 Urine, Void Urine Culture - Preliminary NO GROWTH TO DATE Laboratory Results (Last 24 hours) 03/16/22 03/16/22 03/16/22 06:51 05:47 05:47 WBC 11.7 H RBC 3.60 L Hgb 11.1 L Hct 34.1 L MCV 94.7 MCH 30.8 MCHC 32.6 RDW 14.2 H Plt Count 376 MPV 9.3 Gran % 64.8 Immature Gran % (Auto) 0.4 Nucleat RBC Rel Count 0.0 Eos # (Auto) 0.30 Immature Gran # (Auto) 0.05 H Absolute Lymphs (auto) 3.12 Absolute Monos (auto) 0.58 Absolute Nucleated RBC 0.00 Lymphocytes % 26.6 Monocytes % 5.0 Eosinophils % 2.6 Basophils % 0.6 Absolute Granulocytes 7.59 H Basophils # 0.07 Sodium 135 L Potassium 3.6 Chloride 106 Carbon Dioxide 28 Anion Gap 5.1 BUN 4 L Creatinine 0.49 L Estimated GFR > 60.0 Glucose 147 H POC Glucometer 143 H Calcium 8.2 L Total Bilirubin 0.20 AST 55 H ALT 32 Alkaline Phosphatase 211 H Serum Total Protein 6.2 L Albumin 3.1 L 03/15/22 03/15/22 03/15/22 20:31 16:24 11:10 WBC RBC Hgb Hct MCV MCH MCHC RDW Plt Count MPV Gran % Immature Gran % (Auto) Nucleat RBC Rel Count Eos # (Auto) Immature Gran # (Auto) Absolute Lymphs (auto) Absolute Monos (auto) Absolute Nucleated RBC Lymphocytes % Monocytes % Eosinophils % Basophils % Absolute Granulocytes Basophils # Sodium Potassium Chloride Carbon Dioxide Anion Gap BUN Creatinine Estimated GFR Glucose POC Glucometer 241 H 400 H 196 H Calcium Total Bilirubin AST ALT Alkaline Phosphatase Serum Total Protein Albumin Orders (Last 24 hours) Category Date Time Status Discharge Routine Discharge 03/16/22 07:35 Ordered CBC W DIFF AM.LAB Lab 03/16/22 05:47 Completed CMP AM.LAB Lab 03/16/22 05:47 Completed POCT GLUCOSE Stat Lab 03/15/22 07:17 Completed POCT GLUCOSE Stat Lab 03/15/22 11:10 Completed POCT GLUCOSE Stat Lab 03/15/22 16:24 Completed POCT GLUCOSE Stat Lab 03/15/22 20:31 Completed POCT GLUCOSE Stat Lab 03/16/22 06:51 Completed Azithromycin 500 mg/250 ml [Zithromax 500 MG/ 250 ML Med 03/15/22 10:00 Discontinued NaCl Premix] 500 mg in 250 ml IV Q24H10 Azithromycin 500 mg/250 ml [Zithromax 500 MG/ 250 ML Med 03/15/22 22:00 Active NaCl Premix] 500 mg in 250 ml IV QPM Ceftriaxone 1 GM/50 ML PREMIX* [ROCEPHIN 1 Gm-D5w 50 ml Med 03/15/22 22:00 Active Bag] 1 g in 50 ml IV QPM Insulin Glargine [Lantus Insulin] Med 03/15/22 22:00 Active 20 unit SQ HS Insulin Lispro [Humalog] Med 03/15/22 16:30 Active 14 unit SQ AC Code(s): R91.8 - OTHER NONSPECIFIC ABNORMAL FINDING OF LUNG FIELD (2) Hypoxia Current Visit: Yes Status: Resolved Code(s): R09.02 - HYPOXEMIA - Discharge Discharge Date: 03/16/22 Disposition: Home, Self-Care Condition: Stable Prescriptions: New Fluticasone/Salmeterol 115/21* [Advair Hfa 115/21 Mcg Inhaler] 2 puff IH BIDRT #1 inh cephALEXin [Cephalexin] 500 mg PO QID 7 Days #28 tablet No Action Medroxyprogesterone Acetate [Depo-Provera] 150 mg IM Q90D Insulin Aspart (Niacinamide) [Fiasp 100 Unit/ml Flextouch] 14 units SQ AC Insulin Glargine,Hum.rec.anlog [Toujeo Solostar] 20 units SQ HS Instructions: Pneumonia in Adults, Quitting Smoking for Older Adults, How to Use a Spacer Additional Instructions: call Dr Wilcox first thing tomorrow morning to schedule a follow up within 7 days of discharge Follow up with: ALAN WILCOX [Primary Care Provider] - 7 Days
[2022-03-16] MEDS: HUMALOG SQ SCH ×2 (08:16→11:39)
[2022-03-16 11:53] VITALS: BP 151/77; PULSE 108; O2SAT 95
== END 2022-03-16 12:37 | disposition home or self-care (01) ==
LOC: ED 16:40 → MED SURG 22:58
PROVIDERS: ADMIT General Practice; ATTEND General Practice
DX: R91.8 Other nonspecific abnormal finding of lung field (principal); R09.02 Hypoxemia; D72.829 Elevated white blood cell count, unspecified; R00.0 Tachycardia, unspecified; E10.9 Type 1 diabetes mellitus without complications; Z72.0 Tobacco use; Z79.899 Other long term (current) drug therapy; Z20.828 Contact with and (suspected) exposure to other viral communicable diseases
CPT/HCPCS: 36000; 36415; 80048; 80053; 81001; 82947; 84484; 85025; 85379; 87086; 87651; 93005; 94640; 94760; 96360; 96365; 96374; 96375; 99285; G0378; J0456; J0696; J1815; J1817; J2270; J2405; J7609; A9270-GY

== ENCOUNTER 2023-01-11 20:29 | Observation (INO) | payer OTHER ==
[2023-01-11] MEDS ORDERED: MORPHINE SULFATE 4 MG INJ IV ONE (21:13)
[2023-01-11] MEDS ORDERED: Zofran 4 MG/2 ML VIAL IV ONE (21:13)
[2023-01-11] MEDS ORDERED: Sodium Chloride 0.9% 1000 ML 1,000 ML IV SCH (21:15)
--- NOTE | 2023-01-11 21:18 | ERPHSYRPT ---
- History of Present Illness Time Seen by Provider: 01/11/23 20:48 Source: patient, family Exam Limitations: no limitations Patient Subjective Stated Complaint: headache since Thursday, vision in left eye blurry and left eye moves inward and is cross eyed when patch from left eye removed, fall on Thursday after sliding on sand on lanolium and pain in right knee all the way down to right ankle Triage Nursing Assessment: Pt ambulated to room per self. A&O X 3. Pupils equal bilaterally 3mm, reactive to light, left pupil/iris more medial than right eye. Right knee ecchymosis present, right foot does have nonpitting edema present, bilateral pedal pulses present and equal. Physician History: 38-year-old type I diabetic presented in the ER with chief complaint of moderate to severe left-sided headache with visual impairment since 4 days. Patient reports she is patching her left eye as it crosses and cannot see straight also difficulty movements of left eye laterally. Also report decreased vision from left eye as compared to right. Reports having off-and-on headache but this is different than usual. No numbness tingling or focal weakness otherwise. No difficulty speech or facial numbness. Patient reports she is having trouble seeing things and walking straight and felt yesterday with right ankle twisted inward with pain and swelling now. Allergies/Adverse Reactions: No Known Drug Allergies Allergy (Verified 01/12/23 02:26) Home Medications: Medroxyprogesterone Acetate [Depo-Provera] 150 mg IM Q90D 09/10/19 [History] Gabapentin 100 mg PO QID PRN 01/11/23 [History] Insulin Aspart [Novolog] 1 unit SQ UD 01/11/23 [History] PARoxetine HCL [Paxil] 20 mg PO DAILY 01/11/23 [History] Hx Tetanus, Diphtheria Vaccination/Date Given: No Hx Influenza Vaccination/Date Given: No Hx Pneumococcal Vaccination/Date Given: No Travel Risk - International Travel Have you traveled outside of the country in past 3 weeks: No - Coronavirus Screening Are you exhibiting any of the following symptoms?: Yes Symptoms: Headaches/Body Aches/Fatigue Close contact with a COVID-19 positive Pt in past 14-21 Days: No - Vaccine Status Have you recieved a Covid-19 vaccination: No - Review of Systems Constitutional: No Symptoms Eyes: Eye Pain, Vision Changes Ears, Nose, & Throat: No Symptoms Respiratory: No Symptoms Cardiac: No Symptoms Abdominal/Gastrointestinal: No Symptoms Genitourinary Symptoms: No Symptoms Musculoskeletal: Injury, Joint Pain, Joint Swelling Skin: No Symptoms Neurological: Headache Endocrine: No Symptoms Hematologic/Lymphatic: No Symptoms Immunological/Allergic: No Symptoms - Past Medical History Pertinent Past Medical History: Yes Neurological History: Peripheral Neuropathy ENT History: No Pertinent History Cardiac History: No Pertinent History Respiratory History: No Pertinent History Endocrine Medical History: Diabetes Type I Musculoskeletal History: Arthritis, Fibromyalgia, Other GI Medical History: Pancreatitis History: No Pertinent History Psycho-Social History: Anxiety, Depression Female Reproductive Disorders: No Pertinent History Other Medical History: gallbladder out september 13, 2020, carpal tunnel - Past Surgical History Past Surgical History: Yes Neuro Surgical History: No Pertinent History Cardiac: No Pertinent History Respiratory: No Pertinent History Gastrointestinal: Cholecystectomy Genitourinary: No Pertinent History Musculoskeletal: No Pertinent History Female Surgical History: Dilation & Curettage, Section Other Surgical History: cs x2. hayden - Social History Smoking Status: Current every day smoker How long have you smoked: 22 years Exposure to second hand smoke: Yes Alcohol Use: None Drug Use: none Patient Lives Alone: No Significant Family History: heart disease, diabetes - Female History Hx Now: No - Nursing Vital Signs Nursing Vital Signs: Initial Vital Signs Temperature 97.6 F 01/11/23 20:42 Pulse Rate 114 H 01/11/23 20:42 Respiratory Rate 16 01/11/23 20:42 Blood Pressure 200/99 01/11/23 20:42 O2 Sat by Pulse Oximetry 100 01/11/23 20:42 Pain Scale Pain Intensity 9 - Joann Coma Scale Best Eye Response (Joann): (4) open spontaneously Best Verbal Response (Halsey): (5) oriented Best Motor Response (Halsey): (6) obeys commands Joann Total: 15 - Physical Exam General Appearance: no apparent distress, alert Eye Exam: right eye: EOMI, left eye: abnormal EOM (Restricted left lateral movements.), bilateral eye: normal inspection, PERRL Ears, Nose, Throat Exam: normal ENT inspection, TMs normal, pharynx normal, moist mucous membranes Neck Exam: normal inspection, non-tender, supple, full range of motion Respiratory: normal breath sounds, lungs clear Cardiovascular: normal heart sounds, tachycardia Gastrointestinal: soft, normal bowel sounds, No tenderness Back Exam: normal inspection, normal range of motion Extremity Exam: normal inspection, normal range of motion Mental Status: alert, oriented x 3, 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 Exam: normal hearing, normal speech, PERRL, No abnormal eye position Coordination/Gait: normal finger to nose, normal cerebellar function Motor/Sensory: no motor deficit, no sensory deficit, no pronator drift, negative Babinski's sign DTR: bicep (R): 2+, bicep (L): 2+, knee (R): 2+, knee (L): 2+ Skin Exam: normal color SpO2 Interpretation: normal SpO2: 100 O2 Delivery: Room Air - Course EKG Interpreted by Me: RATE (105), Sinus Tach, Right [place] Deviation, NORMAL INTERVALS, Q-wave, Non-specific ST Changes Ordered Tests: Medication Summary Discontinued Medications Generic Name Dose Route Start Last Admin Trade Name Freq PRN Reason Stop Dose Admin Acetaminophen 325 mg 01/12/23 04:27 Acetaminophen 325 Mg Tablet PO 02/11/23 04:26 Q4H PRN PRN PAIN, FEVER, HEADACHE Acetaminophen 650 mg 01/12/23 04:30 01/12/23 10:20 Acetaminophen 325 Mg Tablet PO 02/11/23 04:29 650 mg Q4H PRN PRN Administration PAIN, FEVER, HEADACHE Hydrocodone Bitart/Acetaminophen 2 tab 01/12/23 01:14 01/12/23 01:22 Hydrocodone/Apap 5/325 1 Tab Tablet PO 01/12/23 01:15 2 tab STAT ONE Administration Hydrocodone Bitart/Acetaminophen Confirm 01/12/23 01:21 Hydrocodone/Apap 5/325 1 Tab Tablet Administered 01/12/23 01:22 Dose 2 tab .ROUTE .STK-MED ONE Aspirin 324 mg 01/12/23 00:43 01/12/23 00:46 Aspirin 81 Mg Tab.Chew PO 01/12/23 00:44 324 mg STAT ONE Administration Aspirin Confirm 01/12/23 00:47 Aspirin 81 Mg Tab.Chew Administered 01/12/23 00:48 Dose 324 mg .ROUTE .STK-MED ONE Gabapentin 100 mg 01/12/23 03:30 Gabapentin 100 Mg Capsule PO 02/11/23 03:29 QID PRN PRN Sodium Chloride 1,000 mls @ 100 mls/hr 01/11/23 21:15 01/11/23 21:32 Sodium Chloride 0.9% 1000 Ml IV 02/10/23 21:14 100 mls/hr .Q10H ELOY Administration Sodium Chloride Confirm 01/11/23 21:30 Sodium Chloride 0.9% 1000 Ml Administered 01/11/23 21:31 Dose 1,000 mls @ ud .ROUTE .STK-MED ONE Insulin Human Lispro 0 unit 01/12/23 03:30 01/12/23 11:57 Insulin Lispro 1 Unit SQ 02/11/23 03:29 2 unit UD PRN Administration HYPERGLYCEMIA Ketorolac Tromethamine 30 mg 01/11/23 23:48 01/12/23 00:03 Ketorolac Tromethamine 30 Mg/Ml Inj IV 01/11/23 23:49 30 mg STAT ONE Administration Ketorolac Tromethamine Confirm 01/11/23 23:49 Ketorolac Tromethamine 30 Mg/Ml Inj Administered 01/11/23 23:50 Dose 30 mg .ROUTE .STK-MED ONE Labetalol HCl 10 mg 01/12/23 00:42 01/12/23 00:46 Labetalol Hcl 20 Mg/4 Ml Disp.Syringe IV 01/12/23 00:43 10 mg STAT ONE Administration Labetalol HCl Confirm 01/12/23 00:44 Labetalol Hcl 20 Mg/4 Ml Disp.Syringe Administered 01/12/23 00:45 Dose 20 mg IV .STK-MED ONE Morphine Sulfate 4 mg 01/11/23 21:13 01/11/23 21:35 Morphine Sulfate 4 Mg/Ml Injection IV 01/11/23 21:14 4 mg STAT ONE Administration Morphine Sulfate Confirm 01/11/23 21:29 Morphine Sulfate 4 Mg/Ml Injection Administered 01/11/23 21:30 Dose 4 mg .ROUTE .STK-MED ONE Non-Formulary Medication 150 mg 01/12/23 03:30 Medroxyprogesterone Acetate [Depo-Provera] IM 02/11/23 03:29 Q90D ELOY Ondansetron HCl 4 mg 01/11/23 21:13 01/11/23 21:33 Ondansetron Hcl 4 Mg/2 Ml Vial IV 01/11/23 21:14 4 mg STAT ONE Administration Ondansetron HCl Confirm 01/11/23 21:29 Ondansetron Hcl 4 Mg/2 Ml Vial Administered 01/11/23 21:30 Dose 4 mg .ROUTE .STK-MED ONE Paroxetine HCl 20 mg 01/12/23 10:00 01/12/23 08:20 Paroxetine Hcl 20 Mg Tablet PO 02/11/23 09:59 20 mg DAILY ELOY Administration Insulin Pump 0 each 01/12/23 07:30 SQ 02/11/23 07:29 UD [facility] Lab/Rad Data: Laboratory Result Diagrams 01/11/23 21:30 01/11/23 21:30 Laboratory Results 01/12/23 01/11/23 01/11/23 Range/Units 01:18 21:30 21:30 WBC (4.0-10.5) x10^3/uL RBC (4.1-5.4) x10^6/uL Hgb (12.0-16.0) g/dL Hct (35-47) % MCV (78-100) fL MCH (26-32) pg MCHC (32-36) g/dL RDW (11.5-14.0) % Plt Count (150-450) x10^3/uL MPV (7.5-11.0) fL Gran % (36.0-66.0) % Immature Gran % (Auto) (0.00-0.4) % Nucleat RBC Rel Count (0.00-0.1) % Eos # (Auto) (0-0.5) x10^3/uL Immature Gran # (Auto) (0.00-0.03) x10^3u/L Absolute Lymphs (auto) (1.0-4.6) x10^3/uL Absolute Monos (auto) (0.0-1.3) x10^3/uL Absolute Nucleated RBC (0.00-0.01) x10^3u/L Lymphocytes % (24.0-44.0) % Monocytes % (0.0-12.0) % Eosinophils % (0.00-5.0) % Basophils % (0.0-0.4) % Absolute Granulocytes (1.4-6.9) x10^3/uL Basophils # (0-0.4) x10^3/uL Sodium (137-145) mmol/L Potassium (3.5-5.1) mmol/L Chloride (98-107) mmol/L Carbon Dioxide (22-30) mmol/L Anion Gap (5-15) MEQ/L BUN (7-17) mg/dL Creatinine (0.52-1.04) mg/dL Estimated GFR ML/MIN Glucose (74-106) mg/dL Calcium (8.4-10.2) mg/dL Total Bilirubin (0.2-1.3) mg/dL AST (14-36) U/L ALT (0-35) U/L Alkaline Phosphatase (38-126) U/L Troponin I < 0.012 (0.000-0.034) ng/mL Serum Total Protein (6.3-8.2) g/dL Albumin (3.5-5.0) g/dL Procalcitonin 0.155 H (0.030-0.080) ng/mL Serum HCG, Qual NEGATIVE (NEGATIVE) Urine Color (Yellow) Urine Appearance (Clear) Urine pH (4.6-8.0) Ur Specific [place] (1.005-1.030) Urine Protein (Negative) Urine Glucose (UA) (Negative) mg/dL Urine Ketones (Negative) Urine Blood (Negative) Urine Nitrite (Negative) Urine Bilirubin (Negative) Urine Urobilinogen (0.2) mg/dL Ur Leukocyte Esterase (Negative) U Hyaline Cast (Auto) (0-2) /LPF Urine Microscopic RBC (0-5) /HPF Urine Microscopic WBC (0-5) /HPF Ur Epithelial Cells (None Seen) /HPF Urine Bacteria (None Seen) /HPF Urine Culture Reflexed (NO) 01/11/23 01/11/23 01/11/23 Range/Units 21:30 21:30 21:30 WBC 9.4 (4.0-10.5) x10^3/uL RBC 4.40 (4.1-5.4) x10^6/uL Hgb 13.1 (12.0-16.0) g/dL Hct 40.3 (35-47) % MCV 91.6 (78-100) fL MCH 29.8 (26-32) pg MCHC 32.5 (32-36) g/dL RDW 12.5 (11.5-14.0) % Plt Count 263 (150-450) x10^3/uL MPV 9.5 (7.5-11.0) fL Gran % 51.5 (36.0-66.0) % Immature Gran % (Auto) 0.3 (0.00-0.4) % Nucleat RBC Rel Count 0.0 (0.00-0.1) % Eos # (Auto) 0.09 (0-0.5) x10^3/uL Immature Gran # (Auto) 0.03 (0.00-0.03) x10^3u/L Absolute Lymphs (auto) 3.66 (1.0-4.6) x10^3/uL Absolute Monos (auto) 0.73 (0.0-1.3) x10^3/uL Absolute Nucleated RBC 0.00 (0.00-0.01) x10^3u/L Lymphocytes % 38.8 (24.0-44.0) % Monocytes % 7.7 (0.0-12.0) % Eosinophils % 1.0 (0.00-5.0) % Basophils % 0.7 (0.0-0.4) % Absolute Granulocytes 4.86 (1.4-6.9) x10^3/uL Basophils # 0.07 (0-0.4) x10^3/uL Sodium 134 L (137-145) mmol/L Potassium 4.4 (3.5-5.1) mmol/L Chloride 100 (98-107) mmol/L Carbon Dioxide 26 (22-30) mmol/L Anion Gap 12.8 (5-15) MEQ/L BUN 13 (7-17) mg/dL Creatinine 0.64 (0.52-1.04) mg/dL Estimated GFR 116.7 ML/MIN Glucose 171 H (74-106) mg/dL Calcium 9.5 (8.4-10.2) mg/dL Total Bilirubin 0.90 (0.2-1.3) mg/dL AST 27 (14-36) U/L ALT 20 (0-35) U/L Alkaline Phosphatase 71 (38-126) U/L Troponin I < 0.012 (0.000-0.034) ng/mL Serum Total Protein 7.8 (6.3-8.2) g/dL Albumin 4.0 (3.5-5.0) g/dL Procalcitonin (0.030-0.080) ng/mL Serum HCG, Qual (NEGATIVE) Urine Color (Yellow) Urine Appearance (Clear) Urine pH (4.6-8.0) Ur Specific [place] (1.005-1.030) Urine Protein (Negative) Urine Glucose (UA) (Negative) mg/dL Urine Ketones (Negative) Urine Blood (Negative) Urine Nitrite (Negative) Urine Bilirubin (Negative) Urine Urobilinogen (0.2) mg/dL Ur Leukocyte Esterase (Negative) U Hyaline Cast (Auto) (0-2) /LPF Urine Microscopic RBC (0-5) /HPF Urine Microscopic WBC (0-5) /HPF Ur Epithelial Cells (None Seen) /HPF Urine Bacteria (None Seen) /HPF Urine Culture Reflexed (NO) 01/11/23 Range/Units 21:13 WBC (4.0-10.5) x10^3/uL RBC (4.1-5.4) x10^6/uL Hgb (12.0-16.0) g/dL Hct (35-47) % MCV (78-100) fL MCH (26-32) pg MCHC (32-36) g/dL RDW (11.5-14.0) % Plt Count (150-450) x10^3/uL MPV (7.5-11.0) fL Gran % (36.0-66.0) % Immature Gran % (Auto) (0.00-0.4) % Nucleat RBC Rel Count (0.00-0.1) % Eos # (Auto) (0-0.5) x10^3/uL Immature Gran # (Auto) (0.00-0.03) x10^3u/L Absolute Lymphs (auto) (1.0-4.6) x10^3/uL Absolute Monos (auto) (0.0-1.3) x10^3/uL Absolute Nucleated RBC (0.00-0.01) x10^3u/L Lymphocytes % (24.0-44.0) % Monocytes % (0.0-12.0) % Eosinophils % (0.00-5.0) % Basophils % (0.0-0.4) % Absolute Granulocytes (1.4-6.9) x10^3/uL Basophils # (0-0.4) x10^3/uL Sodium (137-145) mmol/L Potassium (3.5-5.1) mmol/L Chloride (98-107) mmol/L Carbon Dioxide (22-30) mmol/L Anion Gap (5-15) MEQ/L BUN (7-17) mg/dL Creatinine (0.52-1.04) mg/dL Estimated GFR ML/MIN Glucose (74-106) mg/dL Calcium (8.4-10.2) mg/dL Total Bilirubin (0.2-1.3) mg/dL AST (14-36) U/L ALT (0-35) U/L Alkaline Phosphatase (38-126) U/L Troponin I (0.000-0.034) ng/mL Serum Total Protein (6.3-8.2) g/dL Albumin (3.5-5.0) g/dL Procalcitonin (0.030-0.080) ng/mL Serum HCG, Qual (NEGATIVE) Urine Color Yellow (Yellow) Urine Appearance Cloudy A (Clear) Urine pH 7.0 (4.6-8.0) Ur Specific [place] 1.020 (1.005-1.030) Urine Protein >=1000 A (Negative) Urine Glucose (UA) 100 A (Negative) mg/dL Urine Ketones Negative (Negative) Urine Blood Small A (Negative) Urine Nitrite Negative (Negative) Urine Bilirubin Negative (Negative) Urine Urobilinogen 1.0 A (0.2) mg/dL Ur Leukocyte Esterase Negative (Negative) U Hyaline Cast (Auto) 6-10 A (0-2) /LPF Urine Microscopic RBC 11-20 A (0-5) /HPF Urine Microscopic WBC 0-2 (0-5) /HPF Ur Epithelial Cells Moderate A (None Seen) /HPF Urine Bacteria Rare A (None Seen) /HPF Urine Culture Reflexed YES (NO) - Progress Progress: unchanged Progress Note: 01/12/23 01:40 38-year-old is evaluated in the ER with chief complaint of left-sided headache and left lateral gaze palsy. Patient has no other focal neuro symptoms. She is given symptomatic treatment for headache. EKG is normal sinus rhythm with no acute ischemic changes. CT head is negative for any acute intracranial findings. Normal white count, fairly unremarkable chemistries. She is given labetalol for control of blood pressure and is currently in 140s. Neuro consult is obtained, agree with nerve palsy but needs further evaluation with MRI. Per neurology recommendation aspirin is given. X-ray right ankle negative for acute fracture dislocation reviewed by me, official report is pending. Placed in [facility]. I have discussed the results of work-up and neurology recommendation with patient and family and plan of admission which they agree. I have discussed with Dr. Bebe Altamirano, reviewed history, work-up and neurology recommendation and agreed with admission. Discussed with : Dwain Counseled pt/family regarding: lab results, diagnosis, rad results, smoking cessation Medical Desision Making - Independent Historian Additional History obtained from: Mother - Discussion of managment Care discussed with:: specialist ([facility] neurology Dr. Gannon, [facility] hospitalist) Reviewed:: Test results Agreed on:: Treatment plan Will see patient: in hospital - Diagnostic Testing Diagnostic test were ordered, analyzed, and reviewed by me: Yes Radiological Interpretation: Interpreted by me, Reviewed by me, Teleradiologist Report - Risk of complications The pt has a high risk of morbidity or mortality based on: Decision regarding hospitilization or escalation of hosp level of care - Departure Departure Disposition: Observation Clinical Impression: Sixth cranial nerve palsy, Uncontrolled hypertension, Migraine, Ankle sprain Condition: Stable Critical Care Time: Yes Critical Care Time(excluding separately billable procedures): Critical 30-74 mins
[2023-01-11] MEDS ORDERED: MORPHINE SULFATE 4 MG INJ ONE (21:29)
[2023-01-11] MEDS ORDERED: Zofran 4 MG/2 ML VIAL ONE (21:29)
[2023-01-11] MEDS ORDERED: Sodium Chloride 0.9% 1000 ML 1,000 ML ONE (21:30)
[2023-01-11 21:37] LABS: Absolute Neutrophil Ct (ANC) 4.86 x10^3/uL (1.4-6.9); BASOPHIL % 0.7 % (0.0-0.4); Basophil (Absolute #) 0.07 x10^3/uL (0-0.4); Eosinophil (Absolute #) 0.09 x10^3/uL (0-0.5); Hematocrit 40.3 % (35-47); Hemoglobin 13.1 g/dL (12.0-16.0); IMMATURE GRAN # 0.03 x10^3u/L (0.00-0.03); IMMATURE GRAN % 0.3 % (0.00-0.4); Lymphocyte (Absolute #) 3.66 x10^3/uL (1.0-4.6); Lymphocytes % 38.8 % (24.0-44.0); Mean Cell Volume 91.6 fL (78-100); Mean Corpuscular Hemoglobin 29.8 pg (26-32); Mean Corpuscular Hgb Concent. 32.5 g/dL (32-36); Mean Platelet Volume 9.5 fL (7.5-11.0); Monocyte (Absolute #) 0.73 x10^3/uL (0.0-1.3); Monocytes % 7.7 % (0.0-12.0); Neutrophil % 51.5 % (36.0-66.0); Platelet Count 263 x10^3/uL (150-450); Red Cell Distribution Width 12.5 % (11.5-14.0); White Blood Count 9.4 x10^3/uL (4.0-10.5)
[2023-01-11 21:50] LABS: HCG SERUM TEST NEGATIVE (NEGATIVE)
[2023-01-11 21:54] LABS: ANION GAP 12.8 MEQ/L (5-15); BILIRUBIN,TOTAL 0.9 mg/dL (0.2-1.3); Calcium 9.5 mg/dL (8.4-10.2); Creatinine 1 0.64 mg/dL (0.52-1.04); EST GLOMERULAR FILTRATION RATE 116.7 ML/MIN; Potassium 4.4 mmol/L (3.5-5.1); Total Protein 7.8 g/dL (6.3-8.2)
--- NOTE | 2023-01-11 22:08 | XRAY ---
CLINICAL HISTORY:headache, visual impairments COMPARISON:None. TECHNIQUE:Axial non-contrast CT scan of the brain was performed from the skull base to the high parietal region. Coronal and sagittal reconstructions were also obtained. FINDINGS: The visualized brain parenchyma shows a normal appearance. Edwards-white matter differentiation is maintained. No midline shifts or deformity. No intracerebral or extra axial hematoma. Normal size and configuration of the cerebral ventricles. Normal CT appearance of the posterior fossa structures namely the cerebellar hemispheres, brainstem and cerebellar peduncles. The IACs are unremarkable. The cerebello-pontine angles are clear. The osseous structures in the skull base are unremarkable. No definite calvarium fractures. The scanned paranasal sinuses are clear. IMPRESSION: The non-enhanced CT study for the brain is unremarkable. Suggested MR evaluation if clinically indicated. [facility] ER was called at [phone] at 10:06 PM EST, 01/11/2023 and results were verbally communicated to Dr. Baires. Electronically Signed by: Jason Broussard MD. (01/11/2023 21:07:47 [employer])
[2023-01-11 22:35] LABS: Appearance Cloudy (Clear); Bacteria Rare /HPF (None Seen); Bilirubin Negative (Negative); Blood Small (Negative); Epithelial Cells Moderate /HPF (None Seen); Glucose, Urine 100 mg/dL (Negative); Ketones Negative (Negative); Leukocyte Esterase Negative (Negative); Nitrite Negative (Negative); Protein,Urine Dip >=1000 (Negative); WBC 0-2 /HPF (0-5)
[2023-01-11 22:36] LABS: ADD URINE CULTURE? YES (NO)
[2023-01-11] MEDS ORDERED: TORAdol 30 mg Injection IV ONE (23:48)
[2023-01-11] MEDS ORDERED: TORAdol 30 mg Injection ONE (23:49)
[2023-01-12] MEDS ORDERED: TRANDATE 20 MG/4 ML SYRINGE IV ONE ×2 (00:42→00:44)
[2023-01-12] MEDS ORDERED: BABY ASPIRIN 81 MG CHEW PO ONE (00:43)
[2023-01-12] MEDS ORDERED: BABY ASPIRIN 81 MG CHEW ONE (00:47)
--- NOTE | 2023-01-12 00:58 | XRAY ---
CLINICAL HISTORY:headache, visual impairments COMPARISON:None TECHNIQUE:Axial CT angiography of the head was done with contrast and sagittal and coronal reformats with MIP reconstructions. FINDINGS: The cavernous portions of bilateral internal carotid arteries show normal caliber and contrast opacification. Bilateral anterior and middle cerebral arteries appear normal in caliber and contrast opacification. The basilar artery and bilateral posterior cerebral arteries appear normal in caliber and contrast opacification. origin of right posterior cerebral artery noted The left vertebral artery is hypoplastic, otherwise right vertebral artery appears normal in caliber and contrast opacification. No evidence of definite thrombus / arteriovenous malformation. IMPRESSION: No significant major vascular thrombosis in CT angiography of the head. Electronically Signed by: Jason Broussard MD. (01/11/2023 23:57:58 PRODUCTION CONTROL CLERK)
--- NOTE | 2023-01-12 01:00 | XRAY ---
CLINICAL HISTORY:left visual impairments COMPARISON:None TECHNIQUE:Axial CT angiography of the neck was done with contrast and sagittal and coronal reformats with MIP reconstructions. FINDINGS: The aortic arch shows normal branching pattern noted. Bilateral common carotid arteries appear normal in caliber and contrast opacification. The cervical portions of bilateral internal carotid arteries appear normal in caliber and contrast opacification. Bilateral external carotid arteries appear normal in caliber and contrast opacification. The left vertebral artery is hypoplastic. The right vertebral artery appears normal in caliber and contrast opacification. No arteriovenous malformation was noted. IMPRESSION: Unremarkable CT angiography of the neck. Electronically Signed by: Jason Broussard MD. (01/11/2023 23:59:39 [employer])
[2023-01-12] MEDS ORDERED: NORCO 5/325 MG PO ONE (01:14)
[2023-01-12] MEDS ORDERED: NORCO 5/325 MG ONE (01:21)
--- NOTE | 2023-01-12 01:46 | PCM.HP ---
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 No other focal neuralgic symptoms, no fevers, chills, nausea, vomiting, diarrhea. Plan for MRI as an inpatient, as CT scan was unremarkable. - Review of Systems Constitutional: No Fever, No Chills Eyes: No Symptoms, Vision Changes Ears, Nose, & Throat: No Symptoms Respiratory: No Cough, No Short Of Breath Cardiac: No Chest Pain, No Edema, No Syncope Abdominal/Gastrointestinal: No Abdominal Pain, No Nausea, No Vomiting, No Diarrhea Genitourinary Symptoms: No Dysuria Musculoskeletal: No Back Pain, No Neck Pain Skin: No Rash Neurological: No Dizziness, No Focal Weakness, No Sensory Changes Psychological: No Symptoms Endocrine: No Symptoms Hematologic/Lymphatic: No Symptoms Immunological/Allergic: No Symptoms Medications & Allergies Home Medications: Home Medication List Medroxyprogesterone Acetate [Depo-Provera] 150 mg IM Q90D 09/10/19 [History Confirmed 01/11/23] Gabapentin 100 mg PO QID PRN 01/11/23 [History Confirmed 01/11/23] Insulin Aspart [Novolog] 1 unit SQ UD 01/11/23 [History Confirmed 01/11/23] PARoxetine HCL [Paxil] 20 mg PO DAILY 01/11/23 [History Confirmed 01/11/23] Allergies/Adverse Reactions: Allergies Allergy/AdvReac Type Severity Reaction Status Date / Time No Known Drug Allergies Allergy Verified 01/11/23 20:55 - Past Medical History Past Medical History: Yes Neurological History: Peripheral Neuropathy ENT History: No Pertinent History Cardiac History: No Pertinent History Respiratory History: No Pertinent History Endocrine Medical History: Diabetes Type I Musculoskelatal History: Arthritis, Fibromyalgia, Other GI Medical History: Pancreatitis History: No Pertinent History Pyscho-Social History: Anxiety, Depression Reproductive Disorders: No Pertinent History Comment: gallbladder out september 13, 2020, carpal tunnel - Female History Are you now?: No - Past Surgical History Past Surgical History: Yes Neuro Surgical History: No Pertinent History Cardiac History: No Pertinent History Respiratory Surgery: No Pertinent History GI Surgical History: Cholecystectomy Genitourinary Surgical Hx: No Pertinent History Musculskeletal Surgical Hx: No Pertinent History Female Surgical History: Dilation & Curettage, Section Other Surgical History: cs x2. hayden - Social History Smoking Status: Current every day smoker How long have you smoked: 22 years Exposure to second hand smoke: Yes Alcohol: None Drug Use: none Significant Family History: heart disease, diabetes - Physical Exam Vital Signs: Vital Signs - 24 hr Temp Pulse Resp BP BP Pulse Ox 01/12/23 01:00 99 H 18 134/81 94 L 01/12/23 00:56 98 H 20 143/73 98 01/12/23 00:52 96 H 18 175/93 96 01/12/23 00:30 106 H 18 190/100 98 01/12/23 00:06 102 H 18 166/92 97 01/11/23 23:30 99 H 20 160/94 98 01/11/23 23:00 104 H 22 162/95 96 01/11/23 22:30 104 H 22 198/92 98 01/11/23 22:08 106 H 20 182/99 97 01/11/23 22:00 107 H 20 185/100 98 01/11/23 21:30 111 H 20 168/114 97 01/11/23 21:18 100 01/11/23 21:00 109 H 24 177/109 99 01/11/23 20:43 111 H 22 200/99 100 01/11/23 20:42 97.6 F 114 H 16 200/99 100 General Appearance: no apparent distress, alert Neurologic Exam: alert, oriented x 3, cooperative, normal mood/affect, nml cerebellar function, nml station & gait, sensation nml, No motor deficits Eye Exam: PERRL/EOMI, eyes nml inspection Ears, Nose, Throat Exam: normal ENT inspection, TMs normal, pharynx normal, moist mucous membranes Neck Exam: normal inspection, non-tender, supple, full range of motion Respiratory Exam: normal breath sounds, lungs clear, No respiratory distress Cardiovascular Exam: regular rate/rhythm, normal heart sounds, normal peripheral pulses Gastrointestinal/Abdomen Exam: soft, normal bowel sounds, No tenderness, No mass Back Exam: normal inspection, normal range of motion, No CVA tenderness, No vertebral tenderness Extremity Exam: normal inspection, normal range of motion, pelvis stable Skin Exam: normal color, warm, dry, No rash Lymphatic Exam: No adenopathy Results - Labs Lab/Micro Results: Lab Results-Last 24 Hours 01/11/23 01/11/23 01/11/23 Range/Units 21:13 21:30 21:30 WBC 9.4 (4.0-10.5) x10^3/uL RBC 4.40 (4.1-5.4) x10^6/uL Hgb 13.1 (12.0-16.0) g/dL Hct 40.3 (35-47) % MCV 91.6 (78-100) fL MCH 29.8 (26-32) pg MCHC 32.5 (32-36) g/dL RDW 12.5 (11.5-14.0) % Plt Count 263 (150-450) x10^3/uL MPV 9.5 (7.5-11.0) fL Gran % 51.5 (36.0-66.0) % Immature Gran % (Auto) 0.3 (0.00-0.4) % Nucleat RBC Rel Count 0.0 (0.00-0.1) % Eos # (Auto) 0.09 (0-0.5) x10^3/uL Immature Gran # (Auto) 0.03 (0.00-0.03) x10^3u/L Absolute Lymphs (auto) 3.66 (1.0-4.6) x10^3/uL Absolute Monos (auto) 0.73 (0.0-1.3) x10^3/uL Absolute Nucleated RBC 0.00 (0.00-0.01) x10^3u/L Lymphocytes % 38.8 (24.0-44.0) % Monocytes % 7.7 (0.0-12.0) % Eosinophils % 1.0 (0.00-5.0) % Basophils % 0.7 (0.0-0.4) % Absolute Granulocytes 4.86 (1.4-6.9) x10^3/uL Basophils # 0.07 (0-0.4) x10^3/uL Sodium 134 L (137-145) mmol/L Potassium 4.4 (3.5-5.1) mmol/L Chloride 100 (98-107) mmol/L Carbon Dioxide 26 (22-30) mmol/L Anion Gap 12.8 (5-15) MEQ/L BUN 13 (7-17) mg/dL Creatinine 0.64 (0.52-1.04) mg/dL Estimated GFR 116.7 ML/MIN Glucose 171 H (74-106) mg/dL Calcium 9.5 (8.4-10.2) mg/dL Total Bilirubin 0.90 (0.2-1.3) mg/dL AST 27 (14-36) U/L ALT 20 (0-35) U/L Alkaline Phosphatase 71 (38-126) U/L Troponin I (0.000-0.034) ng/mL Serum Total Protein 7.8 (6.3-8.2) g/dL Albumin 4.0 (3.5-5.0) g/dL Procalcitonin (0.030-0.080) ng/mL Serum HCG, Qual (NEGATIVE) Urine Color Yellow (Yellow) Urine Appearance Cloudy A (Clear) Urine pH 7.0 (4.6-8.0) Ur Specific [place] 1.020 (1.005-1.030) Urine Protein >=1000 A (Negative) Urine Glucose (UA) 100 A (Negative) mg/dL Urine Ketones Negative (Negative) Urine Blood Small A (Negative) Urine Nitrite Negative (Negative) Urine Bilirubin Negative (Negative) Urine Urobilinogen 1.0 A (0.2) mg/dL Ur Leukocyte Esterase Negative (Negative) U Hyaline Cast (Auto) 6-10 A (0-2) /LPF Urine Microscopic RBC 11-20 A (0-5) /HPF Urine Microscopic WBC 0-2 (0-5) /HPF Ur Epithelial Cells Moderate A (None Seen) /HPF Urine Bacteria Rare A (None Seen) /HPF Urine Culture Reflexed YES (NO) 01/11/23 01/11/23 01/11/23 Range/Units 21:30 21:30 21:30 WBC (4.0-10.5) x10^3/uL RBC (4.1-5.4) x10^6/uL Hgb (12.0-16.0) g/dL Hct (35-47) % MCV (78-100) fL MCH (26-32) pg MCHC (32-36) g/dL RDW (11.5-14.0) % Plt Count (150-450) x10^3/uL MPV (7.5-11.0) fL Gran % (36.0-66.0) % Immature Gran % (Auto) (0.00-0.4) % Nucleat RBC Rel Count (0.00-0.1) % Eos # (Auto) (0-0.5) x10^3/uL Immature Gran # (Auto) (0.00-0.03) x10^3u/L Absolute Lymphs (auto) (1.0-4.6) x10^3/uL Absolute Monos (auto) (0.0-1.3) x10^3/uL Absolute Nucleated RBC (0.00-0.01) x10^3u/L Lymphocytes % (24.0-44.0) % Monocytes % (0.0-12.0) % Eosinophils % (0.00-5.0) % Basophils % (0.0-0.4) % Absolute Granulocytes (1.4-6.9) x10^3/uL Basophils # (0-0.4) x10^3/uL Sodium (137-145) mmol/L Potassium (3.5-5.1) mmol/L Chloride (98-107) mmol/L Carbon Dioxide (22-30) mmol/L Anion Gap (5-15) MEQ/L BUN (7-17) mg/dL Creatinine (0.52-1.04) mg/dL Estimated GFR ML/MIN Glucose (74-106) mg/dL Calcium (8.4-10.2) mg/dL Total Bilirubin (0.2-1.3) mg/dL AST (14-36) U/L ALT (0-35) U/L Alkaline Phosphatase (38-126) U/L Troponin I < 0.012 (0.000-0.034) ng/mL Serum Total Protein (6.3-8.2) g/dL Albumin (3.5-5.0) g/dL Procalcitonin 0.155 H (0.030-0.080) ng/mL Serum HCG, Qual NEGATIVE (NEGATIVE) Urine Color (Yellow) Urine Appearance (Clear) Urine pH (4.6-8.0) Ur Specific [place] (1.005-1.030) Urine Protein (Negative) Urine Glucose (UA) (Negative) mg/dL Urine Ketones (Negative) Urine Blood (Negative) Urine Nitrite (Negative) Urine Bilirubin (Negative) Urine Urobilinogen (0.2) mg/dL Ur Leukocyte Esterase (Negative) U Hyaline Cast (Auto) (0-2) /LPF Urine Microscopic RBC (0-5) /HPF Urine Microscopic WBC (0-5) /HPF Ur Epithelial Cells (None Seen) /HPF Urine Bacteria (None Seen) /HPF Urine Culture Reflexed (NO) - Radiology Impressions Radiology Exams & Impressions: Radiology Procedures Category Date Time Status ANKLE (3 VIEWS) Stat Exams 01/11/23 21:[address] ANGIOGRAPHY NECK [CT] Stat Exams 01/11/23 21:13 Completed CTA HEAD W AND/OR WO CONTRAST [CT] Stat Exams 01/11/23 21:12 Completed HEAD WITHOUT CONTRAST [CT] Stat Exams 01/11/23 21:11 Completed Assessment/Plan (1) Cranial nerve palsy Current Visit: Yes Status: Acute Assessment & Plan: 1. Plan for inpatient MRI Code(s): G52.9 - CRANIAL NERVE DISORDER, UNSPECIFIED (2) Type 1 diabetes Current Visit: Yes Status: Acute Assessment & Plan: 1. Resume home meds Telemedicine Encounter - Telemedicine Encounter Telemedicine Encounter: The entirety of this encounter was performed via Telemedicine"
[2023-01-12] MEDS ORDERED: Neurontin PO PRN (03:30)
[2023-01-12] MEDS ORDERED: MEDROXYPROGESTERONE ACETATE IM SCH (03:30)
[2023-01-12] MEDS ORDERED: TYLENOL 325 MG PO PRN (04:27)
[2023-01-12] MEDS: TYLENOL 325 MG PO PRN ×2 (04:35→10:20)
[2023-01-12 07:08] VITALS: PULSE 91
[2023-01-12] MEDS ORDERED: PATIENT OWN MEDICATION SQ SCH (07:30)
[2023-01-12 08:04] LABS: Absolute Neutrophil Ct (ANC) 4.92 x10^3/uL (1.4-6.9); BASOPHIL % 0.6 % (0.0-0.4); Basophil (Absolute #) 0.06 x10^3/uL (0-0.4); Eosinophil % 1.5 % (0.00-5.0); Eosinophil (Absolute #) 0.15 x10^3/uL (0-0.5); Hematocrit 32.9 % (35-47); Hemoglobin 10.6 g/dL (12.0-16.0); IMMATURE GRAN # 0.02 x10^3u/L (0.00-0.03); IMMATURE GRAN % 0.2 % (0.00-0.4); Lymphocyte (Absolute #) 3.81 x10^3/uL (1.0-4.6); Lymphocytes % 39.2 % (24.0-44.0); Mean Cell Volume 91.6 fL (78-100); Mean Corpuscular Hemoglobin 29.5 pg (26-32); Mean Corpuscular Hgb Concent. 32.2 g/dL (32-36); Mean Platelet Volume 10.8 fL (7.5-11.0); Monocyte (Absolute #) 0.75 x10^3/uL (0.0-1.3); Monocytes % 7.7 % (0.0-12.0); Neutrophil % 50.8 % (36.0-66.0); Platelet Count 229 x10^3/uL (150-450); Red Blood Count 3.59 x10^6/uL (4.1-5.4); Red Cell Distribution Width 12.7 % (11.5-14.0); White Blood Count 9.7 x10^3/uL (4.0-10.5)
[2023-01-12 08:08] LABS: ALBUMIN 2.9 g/dL (3.5-5.0); ANION GAP 12.9 MEQ/L (5-15); BILIRUBIN,TOTAL 0.5 mg/dL (0.2-1.3); Calcium 8.3 mg/dL (8.4-10.2); Creatinine 1 0.99 mg/dL (0.52-1.04); EST GLOMERULAR FILTRATION RATE 75.3 ML/MIN; Total Protein 5.9 g/dL (6.3-8.2)
[2023-01-12] MEDS: HUMALOG SQ PRN ×2 (08:20→11:57)
--- NOTE | 2023-01-12 08:35 | XRAY ---
Indication: Pain following fall. Comparison: None 3 view right ankle obtained. No bony, articular, or soft tissue abnormalities.
[2023-01-12] MEDS ORDERED: Paxil 20 MG PO SCH (10:00)
[2023-01-12 11:25] VITALS: BP 142/69; RESP 17; TEMP 97.8
--- NOTE | 2023-01-12 13:06 | PCM.DS ---
Discharge Summary Date of Admission: 01/12/23 01:57 Date of Discharge: 01/11/2023 Admitting Physician: SALVADOR LAYNE MD Primary Care Provider: ALAN MORAN Allergies Allergies No Known Drug Allergies Allergy (Verified 01/12/23 02:26) Hospital Summary - Hospital Course Hospital Course: This patient was admitted with double vision. She had headache in occipital region and was unable to move left causing double vision. 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 CT of head and CTA were negative. MRI was ordered but was not done because patient could not tolerate the procedure. An outpatient open MRI was ordered. 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 She is scheduled to see lecturer of portuguese outpatient. The patient is dismissed on 01/11/23. - Vitals & Intake/Output Vital Signs: Vital Signs Temperature 97.8 F 01/12/23 11:24 Pulse Rate 91 H 01/12/23 11:24 Respiratory Rate 17 01/12/23 11:24 Blood Pressure 142/69 01/12/23 11:24 O2 Sat by Pulse Oximetry 96 01/12/23 11:24 Intake & Output: Intake & Output 01/10/23 01/11/23 01/12/23 01/13/23 11:59 11:59 11:59 11:59 Intake Total 1138 Balance 1138 Weight 71.2 kg - Lab Result Diagrams: 01/12/23 05:09 01/12/23 05:09 Lab Results-Last 24 Hrs: Lab Results-Last 24 Hours 01/11/23 01/11/23 01/11/23 Range/Units 21:13 21:30 21:30 WBC 9.4 (4.0-10.5) x10^3/uL RBC 4.40 (4.1-5.4) x10^6/uL Hgb 13.1 (12.0-16.0) g/dL Hct 40.3 (35-47) % MCV 91.6 (78-100) fL MCH 29.8 (26-32) pg MCHC 32.5 (32-36) g/dL RDW 12.5 (11.5-14.0) % Plt Count 263 (150-450) x10^3/uL MPV 9.5 (7.5-11.0) fL Gran % 51.5 (36.0-66.0) % Immature Gran % (Auto) 0.3 (0.00-0.4) % Nucleat RBC Rel Count 0.0 (0.00-0.1) % Eos # (Auto) 0.09 (0-0.5) x10^3/uL Immature Gran # (Auto) 0.03 (0.00-0.03) x10^3u/L Absolute Lymphs (auto) 3.66 (1.0-4.6) x10^3/uL Absolute Monos (auto) 0.73 (0.0-1.3) x10^3/uL Absolute Nucleated RBC 0.00 (0.00-0.01) x10^3u/L Lymphocytes % 38.8 (24.0-44.0) % Monocytes % 7.7 (0.0-12.0) % Eosinophils % 1.0 (0.00-5.0) % Basophils % 0.7 (0.0-0.4) % Absolute Granulocytes 4.86 (1.4-6.9) x10^3/uL Basophils # 0.07 (0-0.4) x10^3/uL Sodium 134 L (137-145) mmol/L Potassium 4.4 (3.5-5.1) mmol/L Chloride 100 (98-107) mmol/L Carbon Dioxide 26 (22-30) mmol/L Anion Gap 12.8 (5-15) MEQ/L BUN 13 (7-17) mg/dL Creatinine 0.64 (0.52-1.04) mg/dL Estimated GFR 116.7 ML/MIN Glucose 171 H (74-106) mg/dL POC Glucometer (74 to 106) mg/dL Hemoglobin A1c (4.5-6.0) % Calcium 9.5 (8.4-10.2) mg/dL Total Bilirubin 0.90 (0.2-1.3) mg/dL AST 27 (14-36) U/L ALT 20 (0-35) U/L Alkaline Phosphatase 71 (38-126) U/L Troponin I (0.000-0.034) ng/mL Serum Total Protein 7.8 (6.3-8.2) g/dL Albumin 4.0 (3.5-5.0) g/dL Procalcitonin (0.030-0.080) ng/mL Serum HCG, Qual (NEGATIVE) Urine Color Yellow (Yellow) Urine Appearance Cloudy A (Clear) Urine pH 7.0 (4.6-8.0) Ur Specific [place] 1.020 (1.005-1.030) Urine Protein >=1000 A (Negative) Urine Glucose (UA) 100 A (Negative) mg/dL Urine Ketones Negative (Negative) Urine Blood Small A (Negative) Urine Nitrite Negative (Negative) Urine Bilirubin Negative (Negative) Urine Urobilinogen 1.0 A (0.2) mg/dL Ur Leukocyte Esterase Negative (Negative) U Hyaline Cast (Auto) 6-10 A (0-2) /LPF Urine Microscopic RBC 11-20 A (0-5) /HPF Urine Microscopic WBC 0-2 (0-5) /HPF Ur Epithelial Cells Moderate A (None Seen) /HPF Urine Bacteria Rare A (None Seen) /HPF Urine Culture Reflexed YES (NO) 01/11/23 01/11/23 01/11/23 Range/Units 21:30 21:30 21:30 WBC (4.0-10.5) x10^3/uL RBC (4.1-5.4) x10^6/uL Hgb (12.0-16.0) g/dL Hct (35-47) % MCV (78-100) fL MCH (26-32) pg MCHC (32-36) g/dL RDW (11.5-14.0) % Plt Count (150-450) x10^3/uL MPV (7.5-11.0) fL Gran % (36.0-66.0) % Immature Gran % (Auto) (0.00-0.4) % Nucleat RBC Rel Count (0.00-0.1) % Eos # (Auto) (0-0.5) x10^3/uL Immature Gran # (Auto) (0.00-0.03) x10^3u/L Absolute Lymphs (auto) (1.0-4.6) x10^3/uL Absolute Monos (auto) (0.0-1.3) x10^3/uL Absolute Nucleated RBC (0.00-0.01) x10^3u/L Lymphocytes % (24.0-44.0) % Monocytes % (0.0-12.0) % Eosinophils % (0.00-5.0) % Basophils % (0.0-0.4) % Absolute Granulocytes (1.4-6.9) x10^3/uL Basophils # (0-0.4) x10^3/uL Sodium (137-145) mmol/L Potassium (3.5-5.1) mmol/L Chloride (98-107) mmol/L Carbon Dioxide (22-30) mmol/L Anion Gap (5-15) MEQ/L BUN (7-17) mg/dL Creatinine (0.52-1.04) mg/dL Estimated GFR ML/MIN Glucose (74-106) mg/dL POC Glucometer (74 to 106) mg/dL Hemoglobin A1c (4.5-6.0) % Calcium (8.4-10.2) mg/dL Total Bilirubin (0.2-1.3) mg/dL AST (14-36) U/L ALT (0-35) U/L Alkaline Phosphatase (38-126) U/L Troponin I < 0.012 (0.000-0.034) ng/mL Serum Total Protein (6.3-8.2) g/dL Albumin (3.5-5.0) g/dL Procalcitonin 0.155 H (0.030-0.080) ng/mL Serum HCG, Qual NEGATIVE (NEGATIVE) Urine Color (Yellow) Urine Appearance (Clear) Urine pH (4.6-8.0) Ur Specific [place] (1.005-1.030) Urine Protein (Negative) Urine Glucose (UA) (Negative) mg/dL Urine Ketones (Negative) Urine Blood (Negative) Urine Nitrite (Negative) Urine Bilirubin (Negative) Urine Urobilinogen (0.2) mg/dL Ur Leukocyte Esterase (Negative) U Hyaline Cast (Auto) (0-2) /LPF Urine Microscopic RBC (0-5) /HPF Urine Microscopic WBC (0-5) /HPF Ur Epithelial Cells (None Seen) /HPF Urine Bacteria (None Seen) /HPF Urine Culture Reflexed (NO) 01/12/23 01/12/23 01/12/23 Range/Units 01:18 05:09 05:09 WBC (4.0-10.5) x10^3/uL RBC (4.1-5.4) x10^6/uL Hgb (12.0-16.0) g/dL Hct (35-47) % MCV (78-100) fL MCH (26-32) pg MCHC (32-36) g/dL RDW (11.5-14.0) % Plt Count (150-450) x10^3/uL MPV (7.5-11.0) fL Gran % (36.0-66.0) % Immature Gran % (Auto) (0.00-0.4) % Nucleat RBC Rel Count (0.00-0.1) % Eos # (Auto) (0-0.5) x10^3/uL Immature Gran # (Auto) (0.00-0.03) x10^3u/L Absolute Lymphs (auto) (1.0-4.6) x10^3/uL Absolute Monos (auto) (0.0-1.3) x10^3/uL Absolute Nucleated RBC (0.00-0.01) x10^3u/L Lymphocytes % (24.0-44.0) % Monocytes % (0.0-12.0) % Eosinophils % (0.00-5.0) % Basophils % (0.0-0.4) % Absolute Granulocytes (1.4-6.9) x10^3/uL Basophils # (0-0.4) x10^3/uL Sodium (137-145) mmol/L Potassium (3.5-5.1) mmol/L Chloride (98-107) mmol/L Carbon Dioxide (22-30) mmol/L Anion Gap (5-15) MEQ/L BUN (7-17) mg/dL Creatinine (0.52-1.04) mg/dL Estimated GFR ML/MIN Glucose (74-106) mg/dL POC Glucometer (74 to 106) mg/dL Hemoglobin A1c 7.87 H (4.5-6.0) % Calcium (8.4-10.2) mg/dL Total Bilirubin (0.2-1.3) mg/dL AST (14-36) U/L ALT (0-35) U/L Alkaline Phosphatase (38-126) U/L Troponin I < 0.012 < 0.012 (0.000-0.034) ng/mL Serum Total Protein (6.3-8.2) g/dL Albumin (3.5-5.0) g/dL Procalcitonin (0.030-0.080) ng/mL Serum HCG, Qual (NEGATIVE) Urine Color (Yellow) Urine Appearance (Clear) Urine pH (4.6-8.0) Ur Specific [place] (1.005-1.030) Urine Protein (Negative) Urine Glucose (UA) (Negative) mg/dL Urine Ketones (Negative) Urine Blood (Negative) Urine Nitrite (Negative) Urine Bilirubin (Negative) Urine Urobilinogen (0.2) mg/dL Ur Leukocyte Esterase (Negative) U Hyaline Cast (Auto) (0-2) /LPF Urine Microscopic RBC (0-5) /HPF Urine Microscopic WBC (0-5) /HPF Ur Epithelial Cells (None Seen) /HPF Urine Bacteria (None Seen) /HPF Urine Culture Reflexed (NO) 01/12/23 01/12/23 01/12/23 Range/Units 05:09 05:09 06:45 WBC 9.7 (4.0-10.5) x10^3/uL RBC 3.59 L (4.1-5.4) x10^6/uL Hgb 10.6 L (12.0-16.0) g/dL Hct 32.9 L (35-47) % MCV 91.6 (78-100) fL MCH 29.5 (26-32) pg MCHC 32.2 (32-36) g/dL RDW 12.7 (11.5-14.0) % Plt Count 229 (150-450) x10^3/uL MPV 10.8 (7.5-11.0) fL Gran % 50.8 (36.0-66.0) % Immature Gran % (Auto) 0.2 (0.00-0.4) % Nucleat RBC Rel Count 0.0 (0.00-0.1) % Eos # (Auto) 0.15 (0-0.5) x10^3/uL Immature Gran # (Auto) 0.02 (0.00-0.03) x10^3u/L Absolute Lymphs (auto) 3.81 (1.0-4.6) x10^3/uL Absolute Monos (auto) 0.75 (0.0-1.3) x10^3/uL Absolute Nucleated RBC 0.00 (0.00-0.01) x10^3u/L Lymphocytes % 39.2 (24.0-44.0) % Monocytes % 7.7 (0.0-12.0) % Eosinophils % 1.5 (0.00-5.0) % Basophils % 0.6 (0.0-0.4) % Absolute Granulocytes 4.92 (1.4-6.9) x10^3/uL Basophils # 0.06 (0-0.4) x10^3/uL Sodium 132 L (137-145) mmol/L Potassium 4.0 (3.5-5.1) mmol/L Chloride 104 (98-107) mmol/L Carbon Dioxide 20 L (22-30) mmol/L Anion Gap 12.9 (5-15) MEQ/L BUN 16 (7-17) mg/dL Creatinine 0.99 (0.52-1.04) mg/dL Estimated GFR 75.3 ML/MIN Glucose 323 H (74-106) mg/dL POC Glucometer 252 H (74 to 106) mg/dL Hemoglobin A1c (4.5-6.0) % Calcium 8.3 L (8.4-10.2) mg/dL Total Bilirubin 0.50 (0.2-1.3) mg/dL AST 22 (14-36) U/L ALT 16 (0-35) U/L Alkaline Phosphatase 55 (38-126) U/L Troponin I (0.000-0.034) ng/mL Serum Total Protein 5.9 L (6.3-8.2) g/dL Albumin 2.9 L (3.5-5.0) g/dL Procalcitonin (0.030-0.080) ng/mL Serum HCG, Qual (NEGATIVE) Urine Color (Yellow) Urine Appearance (Clear) Urine pH (4.6-8.0) Ur Specific [place] (1.005-1.030) Urine Protein (Negative) Urine Glucose (UA) (Negative) mg/dL Urine Ketones (Negative) Urine Blood (Negative) Urine Nitrite (Negative) Urine Bilirubin (Negative) Urine Urobilinogen (0.2) mg/dL Ur Leukocyte Esterase (Negative) U Hyaline Cast (Auto) (0-2) /LPF Urine Microscopic RBC (0-5) /HPF Urine Microscopic WBC (0-5) /HPF Ur Epithelial Cells (None Seen) /HPF Urine Bacteria (None Seen) /HPF Urine Culture Reflexed (NO) 01/12/23 Range/Units 11:10 WBC (4.0-10.5) x10^3/uL RBC (4.1-5.4) x10^6/uL Hgb (12.0-16.0) g/dL Hct (35-47) % MCV (78-100) fL MCH (26-32) pg MCHC (32-36) g/dL RDW (11.5-14.0) % Plt Count (150-450) x10^3/uL MPV (7.5-11.0) fL Gran % (36.0-66.0) % Immature Gran % (Auto) (0.00-0.4) % Nucleat RBC Rel Count (0.00-0.1) % Eos # (Auto) (0-0.5) x10^3/uL Immature Gran # (Auto) (0.00-0.03) x10^3u/L Absolute Lymphs (auto) (1.0-4.6) x10^3/uL Absolute Monos (auto) (0.0-1.3) x10^3/uL Absolute Nucleated RBC (0.00-0.01) x10^3u/L Lymphocytes % (24.0-44.0) % Monocytes % (0.0-12.0) % Eosinophils % (0.00-5.0) % Basophils % (0.0-0.4) % Absolute Granulocytes (1.4-6.9) x10^3/uL Basophils # (0-0.4) x10^3/uL Sodium (137-145) mmol/L Potassium (3.5-5.1) mmol/L Chloride (98-107) mmol/L Carbon Dioxide (22-30) mmol/L Anion Gap (5-15) MEQ/L BUN (7-17) mg/dL Creatinine (0.52-1.04) mg/dL Estimated GFR ML/MIN Glucose (74-106) mg/dL POC Glucometer 233 H (74 to 106) mg/dL Hemoglobin A1c (4.5-6.0) % Calcium (8.4-10.2) mg/dL Total Bilirubin (0.2-1.3) mg/dL AST (14-36) U/L ALT (0-35) U/L Alkaline Phosphatase (38-126) U/L Troponin I (0.000-0.034) ng/mL Serum Total Protein (6.3-8.2) g/dL Albumin (3.5-5.0) g/dL Procalcitonin (0.030-0.080) ng/mL Serum HCG, Qual (NEGATIVE) Urine Color (Yellow) Urine Appearance (Clear) Urine pH (4.6-8.0) Ur Specific [place] (1.005-1.030) Urine Protein (Negative) Urine Glucose (UA) (Negative) mg/dL Urine Ketones (Negative) Urine Blood (Negative) Urine Nitrite (Negative) Urine Bilirubin (Negative) Urine Urobilinogen (0.2) mg/dL Ur Leukocyte Esterase (Negative) U Hyaline Cast (Auto) (0-2) /LPF Urine Microscopic RBC (0-5) /HPF Urine Microscopic WBC (0-5) /HPF Ur Epithelial Cells (None Seen) /HPF Urine Bacteria (None Seen) /HPF Urine Culture Reflexed (NO) Micro Results-Entire Visit: Microbiology 01/11/23 21:13 Urine Culture - Preliminary Clean Catch Midstream NO GROWTH TO DATE Accuchecks Date 01/12/23 Date 01/12/23 Time 11:24 Time 07:07 - Radiology Exams Ordered Rad Exams-Entire Visit: Radiology Procedures Category Date Time Status ANKLE (3 VIEWS) Stat Exams 01/11/23 21:[address] ANGIOGRAPHY NECK [CT] Stat Exams 01/11/23 21:13 Completed CTA HEAD W AND/OR WO CONTRAST [CT] Stat Exams 01/11/23 21:12 Completed HEAD WITHOUT CONTRAST [CT] Stat Exams 01/11/23 21:11 Completed - Procedures and Test Procedures and Tests throughout Hospitalization: Therapy Orders & Screens 01/12/23 03:07 Smoking Cessation Education ONCE Comment: Diagnosis: 6 cranial nerve palsy. Uncontrolled hypertension, migraine Smoking Status: Current every day smoker How long have you smoked: 22yr Have you smoked in the past 12 months: Yes Approximately how many cigarettes per day: 10 Do you dip or chew tobacco: No 01/12/23 09:00 OT Screen per Nursing Assess ONCE Comment: Protocol Order Physician Instructions: Greater than 3 points order OT Admission Screening Reason For Exam: Triggered on Admission Diagnosis: 6 cranial nerve palsy. Uncontrolled hypertension, migraine Open Wound/Cellutlitis/Pressure Ulcers: No Acute Fx/ORIF/Change in wt bearing status: Yes Severe MUSCULOSKELETAL pain: Yes ADL Dysfunction: No Acute CVA w/Hemiparesis/Hemiplegia: No Decreased Functional Mobility/Strength: Yes Sprain/Strain: Yes Acute Post-op Mobility Dysfunction: No Total Points: 14 PT Screen per Nursing Assess ONCE Comment: Protocol Order Physician Instructions: Greater than 3 points order PT Admission Screenin Reason For Exam: Triggered on Admission Diagnosis: 6 cranial nerve palsy. Uncontrolled hypertension, migraine Open Wound/Cellutlitis/Pressure Ulcers: No Acute Fx/ORIF/Change in wt bearing status: Yes Severe MUSCULOSKELETAL pain: Yes ADL Dysfunction: No Acute CVA w/Hemiparesis/Hemiplegia: No Decreased Functional Mobility/Strength: Yes Sprain/Strain: Yes Acute Post-op Mobility Dysfunction: No Total Points: 14 Discharge Exam General Appearance: no apparent distress Neurologic Exam: alert, oriented x 3 Eye Exam: PERRL, No EOMI Ears, Nose, Throat Exam: normal ENT inspection Neck Exam: normal inspection, non-tender, supple, full range of motion Respiratory Exam: normal breath sounds Cardiovascular Exam: regular rate/rhythm, normal heart sounds Gastrointestinal/Abdomen Exam: soft, normal bowel sounds Pelvic Exam: deferred Rectal Exam: deferred Back Exam: normal inspection Extremity Exam: normal inspection Skin Exam: normal color, warm, dry Final Diagnosis/Problem List - Final Discharge Diagnosis/Problem (1) Ankle sprain Current Visit: Yes Status: Acute Priority: Medium Assessment & Plan: Follow up with PCP Code(s): S93.409A - SPRAIN OF UNSP LIGAMENT OF UNSPECIFIED ANKLE, INIT ENCNTR (2) Cranial nerve palsy Current Visit: Yes Status: Acute Priority: High Assessment & Plan: MRI and Ophthalmology consult scheduled outpatient. 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 Do not suspect stroke. Code(s): G52.9 - CRANIAL NERVE DISORDER, UNSPECIFIED (3) Type 1 diabetes Current Visit: Yes Status: Chronic Priority: High Assessment & Plan: Follow up with PCP Telemedicine Encounter - Telemedicine Encounter Telemedicine Encounter: The entirety of this encounter was performed via Telemedicine after consent obtained. Labs and imgaging reviewed 35 minutes spent on discharge and care of this patient. - Discharge Disposition: Home, Self-Care Condition: Stable Prescriptions: No Action Medroxyprogesterone Acetate [Depo-Provera] 150 mg IM Q90D Insulin Aspart [Novolog] 1 unit SQ UD PARoxetine HCL [Paxil] 20 mg PO DAILY Gabapentin 100 mg PO QID PRN Outpatient Orders: MRI BRAIN W & W/O CONTRAST [MRI] Location: [facility] Additional Instructions: MRI of Brain Scheduled at [facility] [place] 01/21/23 @ 8:30am. Please at least 20 min. early, make sure hair is dry, and do not wear any eye makeup. Follow Up with [facility] [place] on 01/13/23 @ 1:30pm. Dr. Abigail Krishnan's office doesn't currently have any appointments available. They will call you as soon as one become available. Please bring insurance and ID cards to all appointments. Follow up with: PRASHANTH LI [NON-STAFF PHY W/O PRIVILEGES] - 01/22/23 2:00 pm
[2023-01-16 13:15] VITALS: O2SAT 100
== END 2023-01-12 15:46 | disposition home or self-care (01) ==
LOC: ED 20:29 → MED SURG 01-12 01:57
PROVIDERS: ADMIT Student in an Organized Health Care Education/Training Program; ATTEND Student in an Organized Health Care Education/Training Program
DX: H49.00 Third [oculomotor] nerve palsy, unspecified eye (principal); S93.409A Sprain of unspecified ligament of unspecified ankle, initial encounter; G52.9 Cranial nerve disorder, unspecified; E10.9 Type 1 diabetes mellitus without complications; F17.200 Nicotine dependence, unspecified, uncomplicated; W19.XXXA Unspecified fall, initial encounter; Z79.899 Other long term (current) drug therapy; Z20.828 Contact with and (suspected) exposure to other viral communicable diseases
CPT/HCPCS: 36000; 36415; 70450; 70496; 70498; 73610; 80053; 81001; 82947; 83036; 84145; 84484; 84703; 85025; 87086; 93005; 93268; 96374; 96375; 99285; G0378; Q3014; J1817; J1885; J2270; J2405; A9270-GY

== ENCOUNTER 2025-01-20 14:28 | Observation (INO) | payer OTHER ==
--- NOTE | 2025-01-20 15:17 | ERPHSYRPT ---
- History of Present Illness Time Seen by Provider: 01/20/25 15:16 Source: patient, family Exam Limitations: no limitations Patient Subjective Stated Complaint: Pt states "I have been in [place] on my dexcom for the past 12 hours" Triage Nursing Assessment: Pt presented alert and oriented X 3, skin pwd. Pt ambulates with an upright steady gait, able to speak in clear full sentences. PT resting comfortably on the bed. Physician History: Pt had onset of elevated blood sugar noted today with some general aching and nausea but no other symptoms, no cold symptoms or fever. No abd pain. No chest pain or sobreath. Normal mental status. Discussed with pt and available family risks and benefits of testing/Tx including CBC, CMP, UA, lactate, D dimer, Amylase, Lipase, CXR, swabs for Covid, RSV, Flu, Strep, IVF, Insulin, venous blood gas and they wish to proceed so these are ordered. Results discussed with pt and available family Pt and family were advised of the limitations of the testing and Tx performed today in this setting and that we have not yet determined a precise cause for their symptoms and there still could be additional pathology of a serious nature evolving undetected. They voice their understanding and wish to choose outpatient f/u rather than further testing in ER or admission to hospital or transfer at this time and they have the capacity to make this choice. Timing/Duration: today Severity: moderate Associated Symptoms: nausea, other (aching) Allergies/Adverse Reactions: No Known Drug Allergies Allergy (Verified 01/12/23 02:26) Home Medications: Medroxyprogesterone Acetate [Depo-Provera] 150 mg IM Q90D 09/10/19 [History] Gabapentin 100 mg PO QID PRN 01/11/23 [History] Insulin Aspart [Novolog] 1 unit SQ UD 01/11/23 [History] PARoxetine HCL [Paxil] 20 mg PO DAILY 01/11/23 [History] Pravastatin Sodium 40 mg PO DAILY 10/11/24 [History] Hx Tetanus, Diphtheria Vaccination/Date Given: No Hx Influenza Vaccination/Date Given: No Hx Pneumococcal Vaccination/Date Given: No Immunizations Up to Date: No Travel Risk - International Travel Have you traveled outside of the country in past 3 weeks: No - Emerging Infectious Disease Are you exhibiting symptoms associated with any current EIDs: No - Review of Systems Constitutional: Malaise, No Fever, No Chills Eyes: No Symptoms Ears, Nose, & Throat: No Symptoms Respiratory: No Cough, No Dyspnea Cardiac: No Chest Pain, No Edema, No Syncope Abdominal/Gastrointestinal: Nausea, No Abdominal Pain, No Vomiting, No Diarrhea Genitourinary Symptoms: No Dysuria Musculoskeletal: Arthralgias, Myalgias, No Back Pain, No Neck Pain Skin: No Rash Neurological: No Dizziness, No Focal Weakness, No Sensory Changes Psychological: No Symptoms Endocrine: No Symptoms Hematologic/Lymphatic: No Symptoms Immunological/Allergic: No Symptoms All Other Systems: Reviewed and Negative - Past Medical History Pertinent Past Medical History: Yes Neurological History: Peripheral Neuropathy ENT History: No Pertinent History Cardiac History: No Pertinent History Respiratory History: No Pertinent History Endocrine Medical History: Diabetes Type I Musculoskeletal History: Arthritis, Fibromyalgia, Other GI Medical History: Pancreatitis History: No Pertinent History Psycho-Social History: Anxiety, Depression Female Reproductive Disorders: No Pertinent History Other Medical History: gallbladder out september 13, 2020, carpal tunnel - Past Surgical History Past Surgical History: Yes Neuro Surgical History: No Pertinent History Cardiac: No Pertinent History Respiratory: No Pertinent History Gastrointestinal: Cholecystectomy Genitourinary: No Pertinent History Musculoskeletal: No Pertinent History Female Surgical History: Dilation & Curettage, Section Other Surgical History: cs x2. hayden Significant Family History: heart disease, diabetes - Female History Hx Last Menstrual Period: depo Hx Now: No - Social History Smoking Status: Current every day smoker How long have you smoked: 22 years Exposure to second hand smoke: Yes Drug Use: none - Social Determinants of Health Will the patient participate in the screening: Yes Do you worry about a steady place to live?: No Do you have any problems with any of the following?: No known problems In the past 12 months,have you had to go without utilities?: No Transportation Issues: No Has anyone in your support network made you feel unsafe?: No Have you or anyone in your house had to go w/o enough food: No - Nursing Vital Signs Nursing Vital Signs: Initial Vital Signs Pulse Rate 125 H 01/20/25 14:51 Respiratory Rate 18 01/20/25 14:51 Blood Pressure 129/73 01/20/25 14:51 O2 Sat by Pulse Oximetry 100 01/20/25 14:51 Pain Scale Pain Intensity 0 - Physical Exam General Appearance: no apparent distress, alert Eye Exam: PERRL/EOMI, eyes nml inspection Ears, Nose, Throat Exam: normal ENT inspection, TMs normal, pharynx normal, moist mucous membranes Neck Exam: normal inspection, non-tender, supple, full range of motion Respiratory Exam: normal breath sounds, lungs clear, No respiratory distress Cardiovascular Exam: regular rate/rhythm, normal heart sounds, normal peripheral pulses Gastrointestinal/Abdomen Exam: soft, normal bowel sounds, No tenderness, No distention, No mass, No guarding, No pulsatile mass, No rebound Pelvic Exam: deferred Rectal Exam: deferred Back Exam: normal inspection, normal range of motion, No CVA tenderness, No vertebral tenderness Extremity Exam: normal inspection, normal range of motion, pelvis stable Neurologic Exam: alert, oriented x 3, cooperative, normal mood/affect, nml cerebellar function, nml station & gait, sensation nml, No motor deficits Skin Exam: normal color, warm, dry, No rash Lymphatic Exam: No adenopathy SpO2 Interpretation: normal SpO2: 100 O2 Delivery: Room Air - Course Nursing assessment & vital signs reviewed: Yes - Radiology Exams Chest X-ray Interpretation: Interpreted by me, Teleradiologist Report, Other (interstital alveolar infiltrate) Ordered Tests: Active Orders 24 hr Category Date Time Status EKG-ER Only STAT Care 01/20/25 15:30 Completed IV Insertion STAT Care 01/20/25 15:22 Active CHEST 1 VIEW (PORTABLE) Stat Exams 01/20/25 15:23 Completed CBC W DIFF Stat Lab 01/20/25 16:25 Completed CMP Stat Lab 01/20/25 16:25 Completed Lactic Acid Stat Lab 01/20/25 16:25 Completed Lactic Acid Stat Lab 01/20/25 18:34 Received POCT GLUCOSE Stat Lab 01/20/25 16:20 Completed POCT GLUCOSE Stat Lab 01/20/25 17:41 Completed UA W/RFX UR CULTURE Stat Lab 01/20/25 15:45 Completed VENOUS BLOOD GAS Stat Lab 01/20/25 16:25 Completed Medication Summary Discontinued Medications Generic Name Dose Route Start Last Admin Trade Name Freq PRN Reason Stop Dose Admin Sodium Chloride 1,000 mls @ 999 mls/hr 01/20/25 15:22 01/20/25 17:38 Sodium Chloride 0.9% 1000 Ml IV 01/20/25 16:22 Infused .Q1H1M STA Infusion Lactated Ringer's 1,000 mls @ 999 mls/hr 01/20/25 15:25 01/20/25 16:42 Lactated Ringers IV 01/20/25 16:25 Infused .Q1H1M ONE Infusion Lactated Ringer's Confirm 01/20/25 15:32 Lactated Ringers Administered 01/20/25 15:33 Dose 1,000 mls @ ud IV .STK-MED ONE Sodium Chloride Confirm 01/20/25 16:31 Sodium Chloride 0.9% 1000 Ml Administered 01/20/25 16:32 Dose 1,000 mls @ ud .ROUTE .STK-MED ONE Insulin Human Regular 10 unit 01/20/25 15:24 01/20/25 15:35 Insulin Regular, Human 1 Unit IV 01/20/25 15:25 10 unit STAT ONE Administration Insulin Human Regular Confirm 01/20/25 15:32 Insulin Regular, Human 1 Unit Administered 01/20/25 15:33 Dose 10 unit .ROUTE .STK-MED ONE Lab/Rad Data: Laboratory Result Diagrams 01/20/25 16:25 01/20/25 16:25 Laboratory Results 01/20/25 01/20/25 01/20/25 Range/Units 17:41 16:50 16:30 WBC (3.98-10.04) x10^3/uL RBC (3.93-5.22) x10^6/uL Hgb (11.2-15.7) g/dL Hct (34.1-44.9) % MCV (79.4-94.8) fL MCH (25.6-32.2) pg MCHC (32.2-35.5) g/dL RDW (11.7-14.4) % Plt Count (182-369) x10^3/uL MPV (9.4-12.3) fL Gran % (34.0-71.1) % Immature Gran % (Auto) (0.001-0.429) % Nucleat RBC Rel Count (0.00-0.2) % Eos # (Auto) (0.04-0.36) x10^3/uL Immature Gran # (Auto) (0.001-0.031) x10^3u/L Absolute Lymphs (auto) (1.18-3.74) x10^3/uL Absolute Monos (auto) (0.24-0.86) x10^3/uL Absolute Nucleated RBC (0.00-0.012) x10^3u/L Lymphocytes % (19.3-51.7) % Monocytes % (4.7-12.5) % Eosinophils % (0.7-5.8) % Basophils % (0.1-1.2) % Absolute Granulocytes (1.56-6.13) x10^3/uL Basophils # (0.01-0.08) x10^3/uL pO2/FiO2 Ratio % VBG pH (7.32-7.42) VBG pCO2 at Pat Temp (42-55) mm/Hg VBG pO2 at Pat Temp (25-40) mm/Hg VBG HCO3 (22-28) meq/L VBG O2 Sat (Alejandra) (95-100) VBG Base Excess (-2.0-2.0) VBG Hemoglobin VBG Carboxyhemoglobin (0.0-6.9) % T HGB POC Potassium (3.5-5.1) Sodium (135-145) mmol/L Potassium (3.5-5.1) mmol/L Chloride (98-107) mmol/L Carbon Dioxide (22-30) mmol/L Anion Gap (5-15) MEQ/L BUN (7-17) mg/dL Creatinine (0.52-1.04) mg/dL Estimated GFR ML/MIN Glucose (74-106) mg/dL POC Glucometer 340 H (74 to 106) mg/dL Lactic Acid (0.4-2.0) Calcium (8.4-10.2) mg/dL Total Bilirubin (0.2-1.3) mg/dL AST (14-36) U/L ALT (0-35) U/L Alkaline Phosphatase (38-126) U/L Serum Total Protein (6.3-8.2) g/dL Albumin (3.5-5.0) g/dL Urine Color (Yellow) Urine Appearance (Clear) Urine pH (4.6-8.0) Ur Specific Rudyard (1.005-1.030) Urine Protein (Negative) Urine Glucose (UA) (Negative) mg/dL Urine Ketones (Negative) Urine Blood (Negative) Urine Nitrite (Negative) Urine Bilirubin (Negative) Urine Urobilinogen (0.2) mg/dL Ur Leukocyte Esterase (Negative) U Hyaline Cast (Auto) (0-2) /LPF Urine Microscopic RBC (0-5) /HPF Urine Microscopic WBC (0-5) /HPF Ur Epithelial Cells (None Seen) /HPF Urine Bacteria (None Seen) /HPF Urine Culture Reflexed (NO) Influenza Type A Ag NEGATIVE (NEGATIVE) Influenza Type B Ag NEGATIVE (NEGATIVE) RSV (PCR) NEGATIVE (NEGATIVE) SARS-CoV-2 (PCR) NEGATIVE (NEGATIVE) Group A Strep Antibody NOT DETECTED (NEGATIVE) 01/20/25 01/20/25 01/20/25 Range/Units 16:25 16:25 16:25 WBC (3.98-10.04) x10^3/uL RBC (3.93-5.22) x10^6/uL Hgb (11.2-15.7) g/dL Hct (34.1-44.9) % MCV (79.4-94.8) fL MCH (25.6-32.2) pg MCHC (32.2-35.5) g/dL RDW (11.7-14.4) % Plt Count (182-369) x10^3/uL MPV (9.4-12.3) fL Gran % (34.0-71.1) % Immature Gran % (Auto) (0.001-0.429) % Nucleat RBC Rel Count (0.00-0.2) % Eos # (Auto) (0.04-0.36) x10^3/uL Immature Gran # (Auto) (0.001-0.031) x10^3u/L Absolute Lymphs (auto) (1.18-3.74) x10^3/uL Absolute Monos (auto) (0.24-0.86) x10^3/uL Absolute Nucleated RBC (0.00-0.012) x10^3u/L Lymphocytes % (19.3-51.7) % Monocytes % (4.7-12.5) % Eosinophils % (0.7-5.8) % Basophils % (0.1-1.2) % Absolute Granulocytes (1.56-6.13) x10^3/uL Basophils # (0.01-0.08) x10^3/uL pO2/FiO2 Ratio 21.0 % VBG pH 7.36 (7.32-7.42) VBG pCO2 at Pat Temp 27 L (42-55) mm/Hg VBG pO2 at Pat Temp 52 H (25-40) mm/Hg VBG HCO3 15.3 L* (22-28) meq/L VBG O2 Sat (Alejandra) 85.7 L (95-100) VBG Base Excess -8.6 L (-2.0-2.0) VBG Hemoglobin 13.1 VBG Carboxyhemoglobin 2.2 (0.0-6.9) % T HGB POC Potassium 4.1 (3.5-5.1) Sodium 130 L (135-145) mmol/L Potassium 4.0 (3.5-5.1) mmol/L Chloride 98 (98-107) mmol/L Carbon Dioxide 13 L* (22-30) mmol/L Anion Gap 23.0 H (5-15) MEQ/L BUN 23 H (7-17) mg/dL Creatinine 1.19 H (0.52-1.04) mg/dL Estimated GFR 59.7 ML/MIN Glucose 502 H* (74-106) mg/dL POC Glucometer (74 to 106) mg/dL Lactic Acid 3.5 H (0.4-2.0) Calcium 9.3 (8.4-10.2) mg/dL Total Bilirubin 1.10 (0.2-1.3) mg/dL AST 29 (14-36) U/L ALT 26 (0-35) U/L Alkaline Phosphatase 84 (38-126) U/L Serum Total Protein 6.5 (6.3-8.2) g/dL Albumin 3.6 (3.5-5.0) g/dL Urine Color (Yellow) Urine Appearance (Clear) Urine pH (4.6-8.0) Ur Specific Rudyard (1.005-1.030) Urine Protein (Negative) Urine Glucose (UA) (Negative) mg/dL Urine Ketones (Negative) Urine Blood (Negative) Urine Nitrite (Negative) Urine Bilirubin (Negative) Urine Urobilinogen (0.2) mg/dL Ur Leukocyte Esterase (Negative) U Hyaline Cast (Auto) (0-2) /LPF Urine Microscopic RBC (0-5) /HPF Urine Microscopic WBC (0-5) /HPF Ur Epithelial Cells (None Seen) /HPF Urine Bacteria (None Seen) /HPF Urine Culture Reflexed (NO) Influenza Type A Ag (NEGATIVE) Influenza Type B Ag (NEGATIVE) RSV (PCR) (NEGATIVE) SARS-CoV-2 (PCR) (NEGATIVE) Group A Strep Antibody (NEGATIVE) 01/20/25 01/20/25 01/20/25 Range/Units 16:25 16:20 15:45 WBC 10.7 H (3.98-10.04) x10^3/uL RBC 4.20 (3.93-5.22) x10^6/uL Hgb 12.3 (11.2-15.7) g/dL Hct 37.2 (34.1-44.9) % MCV 88.6 (79.4-94.8) fL MCH 29.3 (25.6-32.2) pg MCHC 33.1 (32.2-35.5) g/dL RDW 12.6 (11.7-14.4) % Plt Count 309 (182-369) x10^3/uL MPV 10.2 (9.4-12.3) fL Gran % 75.5 H (34.0-71.1) % Immature Gran % (Auto) 0.5 H (0.001-0.429) % Nucleat RBC Rel Count 0.0 (0.00-0.2) % Eos # (Auto) 0.02 L (0.04-0.36) x10^3/uL Immature Gran # (Auto) 0.05 H (0.001-0.031) x10^3u/L Absolute Lymphs (auto) 2.11 (1.18-3.74) x10^3/uL Absolute Monos (auto) 0.38 (0.24-0.86) x10^3/uL Absolute Nucleated RBC 0.00 (0.00-0.012) x10^3u/L Lymphocytes % 19.6 (19.3-51.7) % Monocytes % 3.5 L (4.7-12.5) % Eosinophils % 0.2 L (0.7-5.8) % Basophils % 0.7 (0.1-1.2) % Absolute Granulocytes 8.10 H (1.56-6.13) x10^3/uL Basophils # 0.08 (0.01-0.08) x10^3/uL pO2/FiO2 Ratio % VBG pH (7.32-7.42) VBG pCO2 at Pat Temp (42-55) mm/Hg VBG pO2 at Pat Temp (25-40) mm/Hg VBG HCO3 (22-28) meq/L VBG O2 Sat (Alejandra) (95-100) VBG Base Excess (-2.0-2.0) VBG Hemoglobin VBG Carboxyhemoglobin (0.0-6.9) % T HGB POC Potassium (3.5-5.1) Sodium (135-145) mmol/L Potassium (3.5-5.1) mmol/L Chloride (98-107) mmol/L Carbon Dioxide (22-30) mmol/L Anion Gap (5-15) MEQ/L BUN (7-17) mg/dL Creatinine (0.52-1.04) mg/dL Estimated GFR ML/MIN Glucose (74-106) mg/dL POC Glucometer 457 H (74 to 106) mg/dL Lactic Acid (0.4-2.0) Calcium (8.4-10.2) mg/dL Total Bilirubin (0.2-1.3) mg/dL AST (14-36) U/L ALT (0-35) U/L Alkaline Phosphatase (38-126) U/L Serum Total Protein (6.3-8.2) g/dL Albumin (3.5-5.0) g/dL Urine Color Yellow (Yellow) Urine Appearance Clear (Clear) Urine pH 5.5 (4.6-8.0) Ur Specific Rudyard 1.025 (1.005-1.030) Urine Protein 300 A (Negative) Urine Glucose (UA) >=1000 A (Negative) mg/dL Urine Ketones 40 A (Negative) Urine Blood Trace (Negative) Urine Nitrite Negative (Negative) Urine Bilirubin Negative (Negative) Urine Urobilinogen 0.2 (0.2) mg/dL Ur Leukocyte Esterase Negative (Negative) U Hyaline Cast (Auto) 3-5 A (0-2) /LPF Urine Microscopic RBC 0-2 (0-5) /HPF Urine Microscopic WBC 0-2 (0-5) /HPF Ur Epithelial Cells Few (None Seen) /HPF Urine Bacteria None Seen (None Seen) /HPF Urine Culture Reflexed NO (NO) Influenza Type A Ag (NEGATIVE) Influenza Type B Ag (NEGATIVE) RSV (PCR) (NEGATIVE) SARS-CoV-2 (PCR) (NEGATIVE) Group A Strep Antibody (NEGATIVE) - Progress Progress: improved, re-examined Progress Note: 01/20/25 18:39 hospitalist consulted for possible observation with uncontrolled diabetes. 01/20/25 18:43 Dr. Cisneros accepted the pt for at least obs here after consultation and discussion. Discussed with : Flaco Will see patient in: hospital (observation) Counseled pt/family regarding: lab results, diagnosis, need for follow-up, rad results Medical Desision Making - Independent Historian Additional History obtained from: Family - Discussion of managment Reviewed:: Test results, Need for additional workup Agreed on:: Treatment plan, need for follow-up, decision to admit - Diagnostic Testing Diagnostic test were ordered, analyzed, and reviewed by me: Yes Radiological Interpretation: Interpreted by me - Risk of complications The pt has a mod risk of morbidity or mortality based on: Need for prescription drug management The pt has a high risk of morbidity or mortality based on: Decision regarding hospitilization or escalation of hosp level of care - Departure Departure Disposition: Observation Clinical Impression: diabetes uncontrolled, some signs for early DKA Condition: Good Critical Care Time: No Referrals: ALAN MORAN [Primary Care Provider, [facility]] - Follow up/PCP as directed
[2025-01-20] MEDS ORDERED: HUMULIN R ONE (15:32)
[2025-01-20] MEDS ORDERED: Lactated Ringers 1,000 ML IV ONE (15:32)
[2025-01-20] MEDS: HUMULIN R IV ONE (15:35)
[2025-01-20] MEDS: Lactated Ringers 1,000 ML IV ONE (15:36)
--- NOTE | 2025-01-20 16:00 | XRAY ---
Indication: Uncontrolled diabetes. Comparison: March 14, 2022 Portable chest now demonstrates subtle left base interstitial alveolar opacities, possible pneumonia/pneumonitis. Remaining heart, lungs, and bony thorax unremarkable.
[2025-01-20 16:35] LABS: BASOPHIL % 0.7 % (0.1-1.2); Basophil (Absolute #) 0.08 x10^3/uL (0.01-0.08); Eosinophil (Absolute #) 0.02 x10^3/uL (0.04-0.36); Hematocrit 37.2 % (34.1-44.9); Hemoglobin 12.3 g/dL (11.2-15.7); IMMATURE GRAN # 0.05 x10^3u/L (0.001-0.031); IMMATURE GRAN % 0.5 % (0.001-0.429); Lymphocyte (Absolute #) 2.11 x10^3/uL (1.18-3.74); Mean Corpuscular Hemoglobin 29.3 pg (25.6-32.2); Mean Corpuscular Hgb Concent. 33.1 g/dL (32.2-35.5); Monocyte (Absolute #) 0.38 x10^3/uL (0.24-0.86); NUCLEATED RBC # 0.00 x10^3u/L (0.00-0.012); NUCLEATED RBC % 0.0 % (0.00-0.2); Platelet Count 309 x10^3/uL (182-369); Red Blood Count 4.20 x10^6/uL (3.93-5.22); VBG BASE EXCESS -8.6 (-2.0-2.0); VBG CARBOXYHEMOGLOBIN 2.2 % T HGB (0.0-6.9); VBG FIO2 21.0 %; VBG HCO3- 15.3 meq/L (22-28); VBG HEMOGLOBIN 13.1; VBG O2 SATURATION 85.7 (95-100); VBG PCO2 27.0 mm/Hg (42-55); VBG PO2 52.0 mm/Hg (25-40); VBG POTASSIUM 4.1 (3.5-5.1); White Blood Count 10.7 x10^3/uL (3.98-10.04)
[2025-01-20 16:49] LABS: Calcium 9.3 mg/dL (8.4-10.2); Creatinine 1 1.19 mg/dL (0.52-1.04); EST GLOMERULAR FILTRATION RATE 59.7 ML/MIN; Potassium 4.0 mmol/L (3.5-5.1); SGOT/AST 29.0 U/L (14-36); SGPT/ALT 26.0 U/L (0-35); Total Protein 6.5 g/dL (6.3-8.2)
[2025-01-20 16:56] LABS: Carbon Dioxide 13.0 mmol/L (22-30); Glucose 502.0 mg/dL (74-106)
[2025-01-20 17:19] LABS: INFLUENZA A NEGATIVE (NEGATIVE); INFLUENZA B NEGATIVE (NEGATIVE); RESPIRATORY SYNCTIAL VIRUS NEGATIVE (NEGATIVE); SARS-CoV-2 Xpert Express NEGATIVE (NEGATIVE)
[2025-01-20 17:25] LABS: Glucose, Urine >=1000 mg/dL (Negative); Protein,Urine Dip 300 (Negative); RBC 0-2 /HPF (0-5); WBC 0-2 /HPF (0-5)
[2025-01-20] MEDS ORDERED: ROCEPHIN 1 GM / 100 ML NaCl 1 GM/100 ML IVPB IV ONE (18:50)
[2025-01-20] MEDS: ROCEPHIN 1 GM / 100 ML NaCl 1 GM/100 ML IVPB IV ONE (18:53)
[2025-01-20] MEDS ORDERED: MORPHINE SULFATE 4 MG INJ ONE (18:54)
[2025-01-20] MEDS: MORPHINE SULFATE 4 MG INJ IV ONE (18:55)
[2025-01-20] MEDS ORDERED: Sodium Chloride 0.9% W/ 20 mEq KCl/LITER 1,000 ML IV ONE (21:21)
[2025-01-20] MEDS ORDERED: MYXREDLIN 100 UNIT/100 ML BAG 100 UNIT/100 ML PLAST..BAG IV ONE (21:21)
[2025-01-20] MEDS: MYXREDLIN 100 UNIT/100 ML BAG 100 UNIT/100 ML PLAST..BAG IV PRN (21:50)
[2025-01-20] MEDS: Sodium Chloride 0.9% W/ 20 mEq KCl/LITER 1,000 ML IV SCH (21:51)
[2025-01-20] MEDS: HUMULIN R SQ ONE (21:57)
--- NOTE | 2025-01-20 22:02 | PCM.HP ---
History of Present Illness - Chief Complaint Chief Complaint: diabetic ketoacidosis History of Present Illness: Diabetic ketoacidosis without coma (acute, high risk) - 2 liter fluid bolus administered in emergency room (1 liter normal saline, 1 liter lactated ringers) - Insulin bolus of 7 units given (weight-based) - Insulin drip initiated at 7 units per hour (weight-based) - 250 cc normal saline with 20 milliequivalent potassium started - Basic metabolic panel to be repeated every 4 hours - Insulin drip dose to be adjusted if blood glucose falls by more than 50-70 units per hour (glucose checks hourly) - Following [facility] DKA protocol - Insulin bolus to be administered 2 hours prior to discontinuing insulin drip Hyperlipidemia (chronic) - Resume home pravastatin Anxiety/depression (chronic) - Resume home paroxetine Hannah Perez presented to the emergency room due to abnormal results on her Dexcom monitoring system. Clinically, she was not demonstrating any symptoms concerning for acute distress at the time of presentation. Home medications Paroxetine 20mg Gabapentin 100mg qAM, 200mg in afternoon, 300mg Pravastatin 40mg Novolog 1 unit SD Physical examination Vital Signs Blood pressure 117/53 mmHg, heart rate 74 beats per minute, respiratory rate 18 breaths per minute, oxygen saturation 95% on room air. Height 5'7", weight 72.8 kg, BMI 25.1. Neurological Alert and oriented times three, not in acute distress. Cardiovascular Non-tachycardic. Respiratory Non-tachypneic, not in respiratory distress. Abdominal Not distended. Musculoskeletal No gross deformities. Lab and Studies Reviewed - Complete blood count from 01/20/2025: hemoglobin 12.3, platelets 309, white blood cells 10.7 Independently reviewed and interpreted by me. - Basic metabolic panel from 01/10/2025 at 4:25 PM: sodium 130, potassium 4.0, chloride 98, bicarbonate 13, blood urea nitrogen 23, creatinine 1.19, glucose 502, total bilirubin 1.1 Independently reviewed and interpreted by me. - Urinalysis from 01/20/2025: urine protein 300, ketones present, no leukocyte esterase Independently reviewed and interpreted by me. - Venous blood gas from 01/20/2025: pH 7.36, PCO2 15.3, venous oxygen saturation 85% Independently reviewed and interpreted by me. - EKG performed in emergency room Independently reviewed and interpreted by me. Notes reviewed Emergency room documentation from 01/20/2025 reviewed, documenting presentation due to abnormal Dexcom results with emergency room workup including venous blood gas, complete blood count, basic metabolic panel, urinalysis, and EKG. MDM Summary 1. Number and Complexity of Problems Addressed (CoPA): - High Complexity: One acute illness that poses a threat to life or bodily function (diabetic ketoacidosis) along with multiple chronic illnesses requiring management. 2. Amount and/or Complexity of Data to be Reviewed and Analyzed (Data): - Extensive: Multiple laboratory tests reviewed including complete blood count, basic metabolic panel, urinalysis, and venous blood gas. External emergency room records reviewed. Multiple investigations requiring independent interpretation. 3. Risk of Complications, Morbidity, and/or Mortality (Risk): - High Risk: IV fluids with additives administered, insulin IV drip requiring intensive monitoring for toxicity, and acute illness posing threat to life or bodily function. - Review of Systems Eyes: No Symptoms Ears, Nose, & Throat: No Symptoms Respiratory: No Symptoms Cardiac: No Symptoms Abdominal/Gastrointestinal: No Symptoms Genitourinary Symptoms: No Symptoms Musculoskeletal: No Symptoms Skin: No Symptoms Neurological: No Symptoms Psychological: No Symptoms Hematologic/Lymphatic: No Symptoms Immunological/Allergic: No Symptoms Medications & Allergies Home Medications: Home Medication List Medroxyprogesterone Acetate [Depo-Provera] 150 mg IM Q90D 09/10/19 [History Confirmed 01/20/25] Gabapentin 100 mg PO DAILY 01/11/23 [History Confirmed 01/20/25] Insulin Aspart [Novolog] 1 unit SQ UD 01/11/23 [History Confirmed 01/20/25] PARoxetine HCL [Paxil] 20 mg PO DAILY 01/11/23 [History Confirmed 01/20/25] Pravastatin Sodium 40 mg PO DAILY 10/11/24 [History Confirmed 01/20/25] Gabapentin 200 mg PO LUNCH 01/20/25 [History Confirmed 01/20/25] Gabapentin 300 mg PO HS 01/20/25 [History Confirmed 01/20/25] Allergies/Adverse Reactions: Allergies Allergy/AdvReac Type Severity Reaction Status Date / Time No Known Drug Allergies Allergy Verified 01/12/23 02:26 - Past Medical History Past Medical History: Yes Neurological History: Peripheral Neuropathy ENT History: No Pertinent History Cardiac History: No Pertinent History Respiratory History: No Pertinent History Endocrine Medical History: Diabetes Type I Musculoskelatal History: Arthritis, Fibromyalgia, Rheumatoid Arthritis, Other GI Medical History: Pancreatitis History: No Pertinent History Pyscho-Social History: Anxiety, Depression Reproductive Disorders: No Pertinent History Comment: gallbladder out september 13, 2020, carpal tunnel - Female History Are you now?: No - Past Surgical History Past Surgical History: Yes Neuro Surgical History: No Pertinent History Cardiac History: No Pertinent History Respiratory Surgery: No Pertinent History GI Surgical History: Cholecystectomy Genitourinary Surgical Hx: No Pertinent History Musculskeletal Surgical Hx: No Pertinent History Female Surgical History: Dilation & Curettage, Section Other Surgical History: cs x2 Significant Family History: heart disease, diabetes - Social History Smoking Status: Current every day smoker How long have you smoked: 25 years Exposure to second hand smoke: Yes Alcohol: None Drug Use: none - Social Determinants of Health Will the patient participate in the screening: Yes Do you worry about a steady place to live?: No Do you have any problems with any of the following?: No known problems In the past 12 months,have you had to go without utilities?: No Have you or anyone in your house had to go without enough: No Transportation Issues: No Has anyone in your support network made you feel unsafe?: No Does the patient want assistance with any of the above?: No - Physical Exam Vital Signs: Vital Signs - 24 hr Temp Pulse Resp BP BP Pulse Ox 01/20/25 19:39 97.8 F 128 H 18 117/53 95 01/20/25 19:00 122 H 18 96/57 97 01/20/25 18:46 100 01/20/25 18:45 129/59 96 01/20/25 18:30 148/63 96 01/20/25 18:15 116/58 96 01/20/25 18:00 120 H 18 130/55 96 01/20/25 17:45 141/52 97 01/20/25 17:30 153/66 97 01/20/25 17:15 154/77 01/20/25 17:00 156/74 93 L 01/20/25 16:45 121 H 18 139/76 99 01/20/25 16:40 99 01/20/25 16:39 118 H 18 99 01/20/25 16:20 99 01/20/25 16:10 110 H 18 99 01/20/25 16:02 126 H 18 99 01/20/25 15:48 158/104 98 01/20/25 15:47 98 01/20/25 15:31 129 H 18 165/83 99 01/20/25 15:30 156/81 100 01/20/25 14:52 98.3 F 128 H 30 H 129/73 100 01/20/25 14:51 125 H 18 129/73 100 Results - Labs Lab/Micro Results: Lab Results-Last 24 Hours 01/20/25 01/20/25 01/20/25 Range/Units 15:45 16:20 16:25 WBC 10.7 H (3.98-10.04) x10^3/uL RBC 4.20 (3.93-5.22) x10^6/uL Hgb 12.3 (11.2-15.7) g/dL Hct 37.2 (34.1-44.9) % MCV 88.6 (79.4-94.8) fL MCH 29.3 (25.6-32.2) pg MCHC 33.1 (32.2-35.5) g/dL RDW 12.6 (11.7-14.4) % Plt Count 309 (182-369) x10^3/uL MPV 10.2 (9.4-12.3) fL Gran % 75.5 H (34.0-71.1) % Immature Gran % (Auto) 0.5 H (0.001-0.429) % Nucleat RBC Rel Count 0.0 (0.00-0.2) % Eos # (Auto) 0.02 L (0.04-0.36) x10^3/uL Immature Gran # (Auto) 0.05 H (0.001-0.031) x10^3u/L Absolute Lymphs (auto) 2.11 (1.18-3.74) x10^3/uL Absolute Monos (auto) 0.38 (0.24-0.86) x10^3/uL Absolute Nucleated RBC 0.00 (0.00-0.012) x10^3u/L Lymphocytes % 19.6 (19.3-51.7) % Monocytes % 3.5 L (4.7-12.5) % Eosinophils % 0.2 L (0.7-5.8) % Basophils % 0.7 (0.1-1.2) % Absolute Granulocytes 8.10 H (1.56-6.13) x10^3/uL Basophils # 0.08 (0.01-0.08) x10^3/uL pO2/FiO2 Ratio % VBG pH (7.32-7.42) VBG pCO2 at Pat Temp (42-55) mm/Hg VBG pO2 at Pat Temp (25-40) mm/Hg VBG HCO3 (22-28) meq/L VBG O2 Sat (Alejandra) (95-100) VBG Base Excess (-2.0-2.0) VBG Hemoglobin VBG Carboxyhemoglobin (0.0-6.9) % T HGB POC Potassium (3.5-5.1) Sodium (135-145) mmol/L Potassium (3.5-5.1) mmol/L Chloride (98-107) mmol/L Carbon Dioxide (22-30) mmol/L Anion Gap (5-15) MEQ/L BUN (7-17) mg/dL Creatinine (0.52-1.04) mg/dL Estimated GFR ML/MIN Glucose (74-106) mg/dL POC Glucometer 457 H (74 to 106) mg/dL Lactic Acid (0.4-2.0) Calcium (8.4-10.2) mg/dL Total Bilirubin (0.2-1.3) mg/dL AST (14-36) U/L ALT (0-35) U/L Alkaline Phosphatase (38-126) U/L Serum Total Protein (6.3-8.2) g/dL Albumin (3.5-5.0) g/dL Urine Color Yellow (Yellow) Urine Appearance Clear (Clear) Urine pH 5.5 (4.6-8.0) Ur Specific [place] 1.025 (1.005-1.030) Urine Protein 300 A (Negative) Urine Glucose (UA) >=1000 A (Negative) mg/dL Urine Ketones 40 A (Negative) Urine Blood Trace (Negative) Urine Nitrite Negative (Negative) Urine Bilirubin Negative (Negative) Urine Urobilinogen 0.2 (0.2) mg/dL Ur Leukocyte Esterase Negative (Negative) U Hyaline Cast (Auto) 3-5 A (0-2) /LPF Urine Microscopic RBC 0-2 (0-5) /HPF Urine Microscopic WBC 0-2 (0-5) /HPF Ur Epithelial Cells Few (None Seen) /HPF Urine Bacteria None Seen (None Seen) /HPF Urine Culture Reflexed NO (NO) Influenza Type A Ag (NEGATIVE) Influenza Type B Ag (NEGATIVE) RSV (PCR) (NEGATIVE) SARS-CoV-2 (PCR) (NEGATIVE) Group A Strep Antibody (NEGATIVE) 01/20/25 01/20/25 01/20/25 Range/Units 16:25 16:25 16:25 WBC (3.98-10.04) x10^3/uL RBC (3.93-5.22) x10^6/uL Hgb (11.2-15.7) g/dL Hct (34.1-44.9) % MCV (79.4-94.8) fL MCH (25.6-32.2) pg MCHC (32.2-35.5) g/dL RDW (11.7-14.4) % Plt Count (182-369) x10^3/uL MPV (9.4-12.3) fL Gran % (34.0-71.1) % Immature Gran % (Auto) (0.001-0.429) % Nucleat RBC Rel Count (0.00-0.2) % Eos # (Auto) (0.04-0.36) x10^3/uL Immature Gran # (Auto) (0.001-0.031) x10^3u/L Absolute Lymphs (auto) (1.18-3.74) x10^3/uL Absolute Monos (auto) (0.24-0.86) x10^3/uL Absolute Nucleated RBC (0.00-0.012) x10^3u/L Lymphocytes % (19.3-51.7) % Monocytes % (4.7-12.5) % Eosinophils % (0.7-5.8) % Basophils % (0.1-1.2) % Absolute Granulocytes (1.56-6.13) x10^3/uL Basophils # (0.01-0.08) x10^3/uL pO2/FiO2 Ratio 21.0 % VBG pH 7.36 (7.32-7.42) VBG pCO2 at Pat Temp 27 L (42-55) mm/Hg VBG pO2 at Pat Temp 52 H (25-40) mm/Hg VBG HCO3 15.3 L* (22-28) meq/L VBG O2 Sat (Alejandra) 85.7 L (95-100) VBG Base Excess -8.6 L (-2.0-2.0) VBG Hemoglobin 13.1 VBG Carboxyhemoglobin 2.2 (0.0-6.9) % T HGB POC Potassium 4.1 (3.5-5.1) Sodium 130 L (135-145) mmol/L Potassium 4.0 (3.5-5.1) mmol/L Chloride 98 (98-107) mmol/L Carbon Dioxide 13 L* (22-30) mmol/L Anion Gap 23.0 H (5-15) MEQ/L BUN 23 H (7-17) mg/dL Creatinine 1.19 H (0.52-1.04) mg/dL Estimated GFR 59.7 ML/MIN Glucose 502 H* (74-106) mg/dL POC Glucometer (74 to 106) mg/dL Lactic Acid 3.5 H (0.4-2.0) Calcium 9.3 (8.4-10.2) mg/dL Total Bilirubin 1.10 (0.2-1.3) mg/dL AST 29 (14-36) U/L ALT 26 (0-35) U/L Alkaline Phosphatase 84 (38-126) U/L Serum Total Protein 6.5 (6.3-8.2) g/dL Albumin 3.6 (3.5-5.0) g/dL Urine Color (Yellow) Urine Appearance (Clear) Urine pH (4.6-8.0) Ur Specific [place] (1.005-1.030) Urine Protein (Negative) Urine Glucose (UA) (Negative) mg/dL Urine Ketones (Negative) Urine Blood (Negative) Urine Nitrite (Negative) Urine Bilirubin (Negative) Urine Urobilinogen (0.2) mg/dL Ur Leukocyte Esterase (Negative) U Hyaline Cast (Auto) (0-2) /LPF Urine Microscopic RBC (0-5) /HPF Urine Microscopic WBC (0-5) /HPF Ur Epithelial Cells (None Seen) /HPF Urine Bacteria (None Seen) /HPF Urine Culture Reflexed (NO) Influenza Type A Ag (NEGATIVE) Influenza Type B Ag (NEGATIVE) RSV (PCR) (NEGATIVE) SARS-CoV-2 (PCR) (NEGATIVE) Group A Strep Antibody (NEGATIVE) 01/20/25 01/20/25 01/20/25 Range/Units 16:30 16:50 17:41 WBC (3.98-10.04) x10^3/uL RBC (3.93-5.22) x10^6/uL Hgb (11.2-15.7) g/dL Hct (34.1-44.9) % MCV (79.4-94.8) fL MCH (25.6-32.2) pg MCHC (32.2-35.5) g/dL RDW (11.7-14.4) % Plt Count (182-369) x10^3/uL MPV (9.4-12.3) fL Gran % (34.0-71.1) % Immature Gran % (Auto) (0.001-0.429) % Nucleat RBC Rel Count (0.00-0.2) % Eos # (Auto) (0.04-0.36) x10^3/uL Immature Gran # (Auto) (0.001-0.031) x10^3u/L Absolute Lymphs (auto) (1.18-3.74) x10^3/uL Absolute Monos (auto) (0.24-0.86) x10^3/uL Absolute Nucleated RBC (0.00-0.012) x10^3u/L Lymphocytes % (19.3-51.7) % Monocytes % (4.7-12.5) % Eosinophils % (0.7-5.8) % Basophils % (0.1-1.2) % Absolute Granulocytes (1.56-6.13) x10^3/uL Basophils # (0.01-0.08) x10^3/uL pO2/FiO2 Ratio % VBG pH (7.32-7.42) VBG pCO2 at Pat Temp (42-55) mm/Hg VBG pO2 at Pat Temp (25-40) mm/Hg VBG HCO3 (22-28) meq/L VBG O2 Sat (Alejandra) (95-100) VBG Base Excess (-2.0-2.0) VBG Hemoglobin VBG Carboxyhemoglobin (0.0-6.9) % T HGB POC Potassium (3.5-5.1) Sodium (135-145) mmol/L Potassium (3.5-5.1) mmol/L Chloride (98-107) mmol/L Carbon Dioxide (22-30) mmol/L Anion Gap (5-15) MEQ/L BUN (7-17) mg/dL Creatinine (0.52-1.04) mg/dL Estimated GFR ML/MIN Glucose (74-106) mg/dL POC Glucometer 340 H (74 to 106) mg/dL Lactic Acid (0.4-2.0) Calcium (8.4-10.2) mg/dL Total Bilirubin (0.2-1.3) mg/dL AST (14-36) U/L ALT (0-35) U/L Alkaline Phosphatase (38-126) U/L Serum Total Protein (6.3-8.2) g/dL Albumin (3.5-5.0) g/dL Urine Color (Yellow) Urine Appearance (Clear) Urine pH (4.6-8.0) Ur Specific [place] (1.005-1.030) Urine Protein (Negative) Urine Glucose (UA) (Negative) mg/dL Urine Ketones (Negative) Urine Blood (Negative) Urine Nitrite (Negative) Urine Bilirubin (Negative) Urine Urobilinogen (0.2) mg/dL Ur Leukocyte Esterase (Negative) U Hyaline Cast (Auto) (0-2) /LPF Urine Microscopic RBC (0-5) /HPF Urine Microscopic WBC (0-5) /HPF Ur Epithelial Cells (None Seen) /HPF Urine Bacteria (None Seen) /HPF Urine Culture Reflexed (NO) Influenza Type A Ag NEGATIVE (NEGATIVE) Influenza Type B Ag NEGATIVE (NEGATIVE) RSV (PCR) NEGATIVE (NEGATIVE) SARS-CoV-2 (PCR) NEGATIVE (NEGATIVE) Group A Strep Antibody NOT DETECTED (NEGATIVE) 01/20/25 01/20/25 Range/Units 18:58 20:37 WBC (3.98-10.04) x10^3/uL RBC (3.93-5.22) x10^6/uL Hgb (11.2-15.7) g/dL Hct (34.1-44.9) % MCV (79.4-94.8) fL MCH (25.6-32.2) pg MCHC (32.2-35.5) g/dL RDW (11.7-14.4) % Plt Count (182-369) x10^3/uL MPV (9.4-12.3) fL Gran % (34.0-71.1) % Immature Gran % (Auto) (0.001-0.429) % Nucleat RBC Rel Count (0.00-0.2) % Eos # (Auto) (0.04-0.36) x10^3/uL Immature Gran # (Auto) (0.001-0.031) x10^3u/L Absolute Lymphs (auto) (1.18-3.74) x10^3/uL Absolute Monos (auto) (0.24-0.86) x10^3/uL Absolute Nucleated RBC (0.00-0.012) x10^3u/L Lymphocytes % (19.3-51.7) % Monocytes % (4.7-12.5) % Eosinophils % (0.7-5.8) % Basophils % (0.1-1.2) % Absolute Granulocytes (1.56-6.13) x10^3/uL Basophils # (0.01-0.08) x10^3/uL pO2/FiO2 Ratio % VBG pH (7.32-7.42) VBG pCO2 at Pat Temp (42-55) mm/Hg VBG pO2 at Pat Temp (25-40) mm/Hg VBG HCO3 (22-28) meq/L VBG O2 Sat (Alejandra) (95-100) VBG Base Excess (-2.0-2.0) VBG Hemoglobin VBG Carboxyhemoglobin (0.0-6.9) % T HGB POC Potassium (3.5-5.1) Sodium (135-145) mmol/L Potassium (3.5-5.1) mmol/L Chloride (98-107) mmol/L Carbon Dioxide (22-30) mmol/L Anion Gap (5-15) MEQ/L BUN (7-17) mg/dL Creatinine (0.52-1.04) mg/dL Estimated GFR ML/MIN Glucose (74-106) mg/dL POC Glucometer 343 H 476 H (74 to 106) mg/dL Lactic Acid (0.4-2.0) Calcium (8.4-10.2) mg/dL Total Bilirubin (0.2-1.3) mg/dL AST (14-36) U/L ALT (0-35) U/L Alkaline Phosphatase (38-126) U/L Serum Total Protein (6.3-8.2) g/dL Albumin (3.5-5.0) g/dL Urine Color (Yellow) Urine Appearance (Clear) Urine pH (4.6-8.0) Ur Specific [place] (1.005-1.030) Urine Protein (Negative) Urine Glucose (UA) (Negative) mg/dL Urine Ketones (Negative) Urine Blood (Negative) Urine Nitrite (Negative) Urine Bilirubin (Negative) Urine Urobilinogen (0.2) mg/dL Ur Leukocyte Esterase (Negative) U Hyaline Cast (Auto) (0-2) /LPF Urine Microscopic RBC (0-5) /HPF Urine Microscopic WBC (0-5) /HPF Ur Epithelial Cells (None Seen) /HPF Urine Bacteria (None Seen) /HPF Urine Culture Reflexed (NO) Influenza Type A Ag (NEGATIVE) Influenza Type B Ag (NEGATIVE) RSV (PCR) (NEGATIVE) SARS-CoV-2 (PCR) (NEGATIVE) Group A Strep Antibody (NEGATIVE) Accuchecks Date 01/20/25 Time 20:37 - Radiology Impressions Radiology Exams & Impressions: Radiology Procedures Category Date Time Status CHEST 1 VIEW (PORTABLE) Stat Exams 01/20/25 15:23 Completed - Other Procedures and Tests Respiratory Therapy 01/20/25 19:40 Respiratory Therapy Consult ONCE Telemedicine Encounter - Telemedicine Encounter Telemedicine Encounter: "The entirety of this encounter was performed via Telemedicine" This visit was performed using real-time audio and video connection between my location and thepatients locationwith the assistance of a surrogateat the patients location. Written or verbal consent was obtained from the patient/guardian to perform this visit usingnchronoustelemedicine technology. Any patient questions regarding the telemedicine interaction were answered.
[2025-01-20 22:08] LABS: Calcium 8.5 mg/dL (8.4-10.2); Creatinine 1 1.33 mg/dL (0.52-1.04); EST GLOMERULAR FILTRATION RATE 52.2 ML/MIN; Potassium 5.1 mmol/L (3.5-5.1)
[2025-01-20 22:12] LABS: Glucose 579.0 mg/dL (74-106)
[2025-01-20 22:13] LABS: Carbon Dioxide 8.0 mmol/L (22-30)
[2025-01-20] MEDS: Hydromorphone 1 mg/ml Injection IV PRN (22:46)
[2025-01-20] MEDS: Zofran 4 MG/2 ML VIAL IV PRN (22:46)
[2025-01-21] MEDS ORDERED: D5W/0.45NS W/ 20mEq KCl 1000 ML 1,000 ML IV ONE (01:59)
[2025-01-21] MEDS: D5W/0.45NS W/ 20mEq KCl 1000 ML 1,000 ML IV SCH (02:02)
[2025-01-21 02:08] LABS: Calcium 8.3 mg/dL (8.4-10.2); Carbon Dioxide 18.0 mmol/L (22-30); Creatinine 1 1.19 mg/dL (0.52-1.04); EST GLOMERULAR FILTRATION RATE 59.7 ML/MIN; Glucose 238.0 mg/dL (74-106); Potassium 4.3 mmol/L (3.5-5.1)
--- NOTE | 2025-01-21 05:17 | PCM.NOTE ---
Date and Time: 01/21/25 0512 Subjective Assessment: Ms. Perez is a 40 year old female with pmhx of type 1 diabetes, fibromyalgia, rheumatoid arthritis, anxiety, and depression who presented to ED 01/20/25 after her Dexcom notified her of significantly elevated glucose levels. On arrival, she appeared clinically stable without nausea, vomiting, abdominal pain, or other symptoms typical of severe metabolic decompensation. Vital signs were notable for tachycardia in the 120s and mild tachypnea; the remainder were stable. Initial labs demonstrated marked hyperglycemia with serum glucose of 579 mg/dL, associated hyponatremia at 129 mmol/L (corrected for hyperglycemia), CO2 of 8, and an anion gap of 25.4, consistent with [id number] metabolic acidosi s. Renal indices showed BUN 24 and creatinine 1.33, suggestive of mild prerenal azotemia in the setting of volume depletion. CBC showed leukocytosis to 10.7, likely a stress response. She was started on an insulin infusion under the DKA protocol. After fluid resuscitation and initiation of insulin therapy, repeat chemistries showed improvement: sodium 130 , CO2 18, BUN stable at 24, creatinine improved to 1.19, and glucose decreased to 195. CXR showed subtle left base interstitial alveolar opacities, possible pneumonia/pneumonitis. WBC elevated at 12.9. Ceftriaxone/azithromycin initiated. 01/21: Met with the patient at bedside this morning. She reports feeling significantly better overall, with improved energy and complete resolution of her abdominal discomfort. She denies abdominal pain, nausea, or vomiting. Her DKA has resolved with closure of the anion gap and normalization of metabolic parameters. She shared concerns about remaining on her insulin pump, stating she has experienced frequent hypoglycemic episodes at home and does not have follow-up with her electronic die maker, Abigail Krishnan, until February. After discussing risks and benefits, she prefers to discontinue the pump at this time, and we will transition her to a basalbolus insulin regimen with close inpatient monitoring and glucose education. CXR revealed subtle left basilar interstitial and alveolar opacities concerning for early pneumonia or pneumonitis, and her WBC is elevated at 12.9. Although she denies cough or shortness of breath, this may have contributed to her DKA presentation. She will be started on empiric ceftriaxone and azithromycin for possible community-acquired pneumonia. If her condition remains stable and she tolerates the new insulin regimen, she is likely appropriate for discharge tomorrow. - Review of Systems Constitutional: No Symptoms Eyes: No Symptoms Ears, Nose, & Throat: No Symptoms Respiratory: No Symptoms Cardiac: No Symptoms Abdominal/Gastrointestinal: No Symptoms Genitourinary Symptoms: No Symptoms Musculoskeletal: No Symptoms Skin: No Symptoms Neurological: No Symptoms Psychological: No Symptoms Endocrine: No Symptoms Hematologic/Lymphatic: No Symptoms Immunological/Allergic: No Symptoms Objective Exam General Appearance: no apparent distress Neurologic Exam: alert, oriented x 3, cooperative Skin Exam: normal color Eye Exam: PERRL Ears, Nose, Throat Exam: normal ENT inspection Neck Exam: normal inspection Respiratory Exam: normal breath sounds, lungs clear Cardiovascular Exam: regular rate/rhythm, normal heart sounds Gastrointestinal/Abdomen Exam: soft, normal bowel sounds Extremity Exam: normal inspection Back Exam: normal inspection Pelvic Exam: deferred Rectal Exam: deferred Objective Data Vital Signs: Vital Signs - 24 hr Temp Pulse Resp BP BP Pulse Ox 01/21/25 04:00 97.5 F 108 H 13 148/73 97 01/21/25 03:00 107 H 13 101/59 94 L 01/21/25 02:00 105 H 14 176/87 95 01/21/25 01:53 107 H 16 94 L 01/21/25 01:00 107 H 23 144/67 94 L 01/21/25 00:01 115 H 01/21/25 00:00 97.5 F 115 H 15 133/84 99 01/20/25 23:00 119 H 22 114/68 100 01/20/25 22:00 128 H 31 H 102/49 97 01/20/25 21:00 129 H 19 126/57 97 01/20/25 20:00 128 H 01/20/25 19:39 97.8 F 128 H 18 117/53 95 01/20/25 19:00 122 H 18 96/57 97 01/20/25 18:46 100 01/20/25 18:45 129/59 96 01/20/25 18:30 148/63 96 01/20/25 18:15 116/58 96 01/20/25 18:00 120 H 18 130/55 96 01/20/25 17:45 141/52 97 01/20/25 17:30 153/66 97 01/20/25 17:15 154/77 01/20/25 17:00 156/74 93 L 01/20/25 16:45 121 H 18 139/76 99 01/20/25 16:40 99 01/20/25 16:39 118 H 18 99 01/20/25 16:20 99 01/20/25 16:10 110 H 18 99 01/20/25 16:02 126 H 18 99 01/20/25 15:48 158/104 98 01/20/25 15:47 98 01/20/25 15:31 129 H 18 165/83 99 01/20/25 15:30 156/81 100 01/20/25 14:52 98.3 F 128 H 30 H 129/73 100 01/20/25 14:51 125 H 18 129/73 100 Pain Assessment - Last Documented Pain Intensity 5 Pain Scale Used 0-10 Pain Scale Intake and Output: Intake & Output 01/18/25 01/19/25 01/20/25 01/21/25 11:59 11:59 11:59 11:59 Intake Total 30 Balance 30 Weight 72.8 kg Lab Results: Lab Results-Last 24 Hours 01/20/25 01/20/25 01/20/25 Range/Units 15:45 16:20 16:25 WBC 10.7 H (3.98-10.04) x10^3/uL RBC 4.20 (3.93-5.22) x10^6/uL Hgb 12.3 (11.2-15.7) g/dL Hct 37.2 (34.1-44.9) % MCV 88.6 (79.4-94.8) fL MCH 29.3 (25.6-32.2) pg MCHC 33.1 (32.2-35.5) g/dL RDW 12.6 (11.7-14.4) % Plt Count 309 (182-369) x10^3/uL MPV 10.2 (9.4-12.3) fL Gran % 75.5 H (34.0-71.1) % Immature Gran % (Auto) 0.5 H (0.001-0.429) % Nucleat RBC Rel Count 0.0 (0.00-0.2) % Eos # (Auto) 0.02 L (0.04-0.36) x10^3/uL Immature Gran # (Auto) 0.05 H (0.001-0.031) x10^3u/L Absolute Lymphs (auto) 2.11 (1.18-3.74) x10^3/uL Absolute Monos (auto) 0.38 (0.24-0.86) x10^3/uL Absolute Nucleated RBC 0.00 (0.00-0.012) x10^3u/L Lymphocytes % 19.6 (19.3-51.7) % Monocytes % 3.5 L (4.7-12.5) % Eosinophils % 0.2 L (0.7-5.8) % Basophils % 0.7 (0.1-1.2) % Absolute Granulocytes 8.10 H (1.56-6.13) x10^3/uL Basophils # 0.08 (0.01-0.08) x10^3/uL pO2/FiO2 Ratio % VBG pH (7.32-7.42) VBG pCO2 at Pat Temp (42-55) mm/Hg VBG pO2 at Pat Temp (25-40) mm/Hg VBG HCO3 (22-28) meq/L VBG O2 Sat (Alejandra) (95-100) VBG Base Excess (-2.0-2.0) VBG Hemoglobin VBG Carboxyhemoglobin (0.0-6.9) % T HGB POC Potassium (3.5-5.1) Sodium (135-145) mmol/L Potassium (3.5-5.1) mmol/L Chloride (98-107) mmol/L Carbon Dioxide (22-30) mmol/L Anion Gap (5-15) MEQ/L BUN (7-17) mg/dL Creatinine (0.52-1.04) mg/dL Estimated GFR ML/MIN Glucose (74-106) mg/dL POC Glucometer 457 H (74 to 106) mg/dL Lactic Acid (0.4-2.0) Calcium (8.4-10.2) mg/dL Total Bilirubin (0.2-1.3) mg/dL AST (14-36) U/L ALT (0-35) U/L Alkaline Phosphatase (38-126) U/L Serum Total Protein (6.3-8.2) g/dL Albumin (3.5-5.0) g/dL Urine Color Yellow (Yellow) Urine Appearance Clear (Clear) Urine pH 5.5 (4.6-8.0) Ur Specific Riley 1.025 (1.005-1.030) Urine Protein 300 A (Negative) Urine Glucose (UA) >=1000 A (Negative) mg/dL Urine Ketones 40 A (Negative) Urine Blood Trace (Negative) Urine Nitrite Negative (Negative) Urine Bilirubin Negative (Negative) Urine Urobilinogen 0.2 (0.2) mg/dL Ur Leukocyte Esterase Negative (Negative) U Hyaline Cast (Auto) 3-5 A (0-2) /LPF Urine Microscopic RBC 0-2 (0-5) /HPF Urine Microscopic WBC 0-2 (0-5) /HPF Ur Epithelial Cells Few (None Seen) /HPF Urine Bacteria None Seen (None Seen) /HPF Urine Culture Reflexed NO (NO) Influenza Type A Ag (NEGATIVE) Influenza Type B Ag (NEGATIVE) RSV (PCR) (NEGATIVE) SARS-CoV-2 (PCR) (NEGATIVE) Group A Strep Antibody (NEGATIVE) 01/20/25 01/20/25 01/20/25 Range/Units 16:25 16:25 16:25 WBC (3.98-10.04) x10^3/uL RBC (3.93-5.22) x10^6/uL Hgb (11.2-15.7) g/dL Hct (34.1-44.9) % MCV (79.4-94.8) fL MCH (25.6-32.2) pg MCHC (32.2-35.5) g/dL RDW (11.7-14.4) % Plt Count (182-369) x10^3/uL MPV (9.4-12.3) fL Gran % (34.0-71.1) % Immature Gran % (Auto) (0.001-0.429) % Nucleat RBC Rel Count (0.00-0.2) % Eos # (Auto) (0.04-0.36) x10^3/uL Immature Gran # (Auto) (0.001-0.031) x10^3u/L Absolute Lymphs (auto) (1.18-3.74) x10^3/uL Absolute Monos (auto) (0.24-0.86) x10^3/uL Absolute Nucleated RBC (0.00-0.012) x10^3u/L Lymphocytes % (19.3-51.7) % Monocytes % (4.7-12.5) % Eosinophils % (0.7-5.8) % Basophils % (0.1-1.2) % Absolute Granulocytes (1.56-6.13) x10^3/uL Basophils # (0.01-0.08) x10^3/uL pO2/FiO2 Ratio 21.0 % VBG pH 7.36 (7.32-7.42) VBG pCO2 at Pat Temp 27 L (42-55) mm/Hg VBG pO2 at Pat Temp 52 H (25-40) mm/Hg VBG HCO3 15.3 L* (22-28) meq/L VBG O2 Sat (Alejandra) 85.7 L (95-100) VBG Base Excess -8.6 L (-2.0-2.0) VBG Hemoglobin 13.1 VBG Carboxyhemoglobin 2.2 (0.0-6.9) % T HGB POC Potassium 4.1 (3.5-5.1) Sodium 130 L (135-145) mmol/L Potassium 4.0 (3.5-5.1) mmol/L Chloride 98 (98-107) mmol/L Carbon Dioxide 13 L* (22-30) mmol/L Anion Gap 23.0 H (5-15) MEQ/L BUN 23 H (7-17) mg/dL Creatinine 1.19 H (0.52-1.04) mg/dL Estimated GFR 59.7 ML/MIN Glucose 502 H* (74-106) mg/dL POC Glucometer (74 to 106) mg/dL Lactic Acid 3.5 H (0.4-2.0) Calcium 9.3 (8.4-10.2) mg/dL Total Bilirubin 1.10 (0.2-1.3) mg/dL AST 29 (14-36) U/L ALT 26 (0-35) U/L Alkaline Phosphatase 84 (38-126) U/L Serum Total Protein 6.5 (6.3-8.2) g/dL Albumin 3.6 (3.5-5.0) g/dL Urine Color (Yellow) Urine Appearance (Clear) Urine pH (4.6-8.0) Ur Specific Riley (1.005-1.030) Urine Protein (Negative) Urine Glucose (UA) (Negative) mg/dL Urine Ketones (Negative) Urine Blood (Negative) Urine Nitrite (Negative) Urine Bilirubin (Negative) Urine Urobilinogen (0.2) mg/dL Ur Leukocyte Esterase (Negative) U Hyaline Cast (Auto) (0-2) /LPF Urine Microscopic RBC (0-5) /HPF Urine Microscopic WBC (0-5) /HPF Ur Epithelial Cells (None Seen) /HPF Urine Bacteria (None Seen) /HPF Urine Culture Reflexed (NO) Influenza Type A Ag (NEGATIVE) Influenza Type B Ag (NEGATIVE) RSV (PCR) (NEGATIVE) SARS-CoV-2 (PCR) (NEGATIVE) Group A Strep Antibody (NEGATIVE) 01/20/25 01/20/25 01/20/25 Range/Units 16:30 16:50 17:41 WBC (3.98-10.04) x10^3/uL RBC (3.93-5.22) x10^6/uL Hgb (11.2-15.7) g/dL Hct (34.1-44.9) % MCV (79.4-94.8) fL MCH (25.6-32.2) pg MCHC (32.2-35.5) g/dL RDW (11.7-14.4) % Plt Count (182-369) x10^3/uL MPV (9.4-12.3) fL Gran % (34.0-71.1) % Immature Gran % (Auto) (0.001-0.429) % Nucleat RBC Rel Count (0.00-0.2) % Eos # (Auto) (0.04-0.36) x10^3/uL Immature Gran # (Auto) (0.001-0.031) x10^3u/L Absolute Lymphs (auto) (1.18-3.74) x10^3/uL Absolute Monos (auto) (0.24-0.86) x10^3/uL Absolute Nucleated RBC (0.00-0.012) x10^3u/L Lymphocytes % (19.3-51.7) % Monocytes % (4.7-12.5) % Eosinophils % (0.7-5.8) % Basophils % (0.1-1.2) % Absolute Granulocytes (1.56-6.13) x10^3/uL Basophils # (0.01-0.08) x10^3/uL pO2/FiO2 Ratio % VBG pH (7.32-7.42) VBG pCO2 at Pat Temp (42-55) mm/Hg VBG pO2 at Pat Temp (25-40) mm/Hg VBG HCO3 (22-28) meq/L VBG O2 Sat (Alejandra) (95-100) VBG Base Excess (-2.0-2.0) VBG Hemoglobin VBG Carboxyhemoglobin (0.0-6.9) % T HGB POC Potassium (3.5-5.1) Sodium (135-145) mmol/L Potassium (3.5-5.1) mmol/L Chloride (98-107) mmol/L Carbon Dioxide (22-30) mmol/L Anion Gap (5-15) MEQ/L BUN (7-17) mg/dL Creatinine (0.52-1.04) mg/dL Estimated GFR ML/MIN Glucose (74-106) mg/dL POC Glucometer 340 H (74 to 106) mg/dL Lactic Acid (0.4-2.0) Calcium (8.4-10.2) mg/dL Total Bilirubin (0.2-1.3) mg/dL AST (14-36) U/L ALT (0-35) U/L Alkaline Phosphatase (38-126) U/L Serum Total Protein (6.3-8.2) g/dL Albumin (3.5-5.0) g/dL Urine Color (Yellow) Urine Appearance (Clear) Urine pH (4.6-8.0) Ur Specific Riley (1.005-1.030) Urine Protein (Negative) Urine Glucose (UA) (Negative) mg/dL Urine Ketones (Negative) Urine Blood (Negative) Urine Nitrite (Negative) Urine Bilirubin (Negative) Urine Urobilinogen (0.2) mg/dL Ur Leukocyte Esterase (Negative) U Hyaline Cast (Auto) (0-2) /LPF Urine Microscopic RBC (0-5) /HPF Urine Microscopic WBC (0-5) /HPF Ur Epithelial Cells (None Seen) /HPF Urine Bacteria (None Seen) /HPF Urine Culture Reflexed (NO) Influenza Type A Ag NEGATIVE (NEGATIVE) Influenza Type B Ag NEGATIVE (NEGATIVE) RSV (PCR) NEGATIVE (NEGATIVE) SARS-CoV-2 (PCR) NEGATIVE (NEGATIVE) Group A Strep Antibody NOT DETECTED (NEGATIVE) 01/20/25 01/20/25 01/20/25 Range/Units 18:34 18:58 20:37 WBC (3.98-10.04) x10^3/uL RBC (3.93-5.22) x10^6/uL Hgb (11.2-15.7) g/dL Hct (34.1-44.9) % MCV (79.4-94.8) fL MCH (25.6-32.2) pg MCHC (32.2-35.5) g/dL RDW (11.7-14.4) % Plt Count (182-369) x10^3/uL MPV (9.4-12.3) fL Gran % (34.0-71.1) % Immature Gran % (Auto) (0.001-0.429) % Nucleat RBC Rel Count (0.00-0.2) % Eos # (Auto) (0.04-0.36) x10^3/uL Immature Gran # (Auto) (0.001-0.031) x10^3u/L Absolute Lymphs (auto) (1.18-3.74) x10^3/uL Absolute Monos (auto) (0.24-0.86) x10^3/uL Absolute Nucleated RBC (0.00-0.012) x10^3u/L Lymphocytes % (19.3-51.7) % Monocytes % (4.7-12.5) % Eosinophils % (0.7-5.8) % Basophils % (0.1-1.2) % Absolute Granulocytes (1.56-6.13) x10^3/uL Basophils # (0.01-0.08) x10^3/uL pO2/FiO2 Ratio % VBG pH (7.32-7.42) VBG pCO2 at Pat Temp (42-55) mm/Hg VBG pO2 at Pat Temp (25-40) mm/Hg VBG HCO3 (22-28) meq/L VBG O2 Sat (Alejandra) (95-100) VBG Base Excess (-2.0-2.0) VBG Hemoglobin VBG Carboxyhemoglobin (0.0-6.9) % T HGB POC Potassium (3.5-5.1) Sodium (135-145) mmol/L Potassium (3.5-5.1) mmol/L Chloride (98-107) mmol/L Carbon Dioxide (22-30) mmol/L Anion Gap (5-15) MEQ/L BUN (7-17) mg/dL Creatinine (0.52-1.04) mg/dL Estimated GFR ML/MIN Glucose (74-106) mg/dL POC Glucometer 343 H 476 H (74 to 106) mg/dL Lactic Acid 1.4 (0.4-2.0) Calcium (8.4-10.2) mg/dL Total Bilirubin (0.2-1.3) mg/dL AST (14-36) U/L ALT (0-35) U/L Alkaline Phosphatase (38-126) U/L Serum Total Protein (6.3-8.2) g/dL Albumin (3.5-5.0) g/dL Urine Color (Yellow) Urine Appearance (Clear) Urine pH (4.6-8.0) Ur Specific Riley (1.005-1.030) Urine Protein (Negative) Urine Glucose (UA) (Negative) mg/dL Urine Ketones (Negative) Urine Blood (Negative) Urine Nitrite (Negative) Urine Bilirubin (Negative) Urine Urobilinogen (0.2) mg/dL Ur Leukocyte Esterase (Negative) U Hyaline Cast (Auto) (0-2) /LPF Urine Microscopic RBC (0-5) /HPF Urine Microscopic WBC (0-5) /HPF Ur Epithelial Cells (None Seen) /HPF Urine Bacteria (None Seen) /HPF Urine Culture Reflexed (NO) Influenza Type A Ag (NEGATIVE) Influenza Type B Ag (NEGATIVE) RSV (PCR) (NEGATIVE) SARS-CoV-2 (PCR) (NEGATIVE) Group A Strep Antibody (NEGATIVE) 01/20/25 01/20/25 01/20/25 Range/Units 21:40 22:05 23:01 WBC (3.98-10.04) x10^3/uL RBC (3.93-5.22) x10^6/uL Hgb (11.2-15.7) g/dL Hct (34.1-44.9) % MCV (79.4-94.8) fL MCH (25.6-32.2) pg MCHC (32.2-35.5) g/dL RDW (11.7-14.4) % Plt Count (182-369) x10^3/uL MPV (9.4-12.3) fL Gran % (34.0-71.1) % Immature Gran % (Auto) (0.001-0.429) % Nucleat RBC Rel Count (0.00-0.2) % Eos # (Auto) (0.04-0.36) x10^3/uL Immature Gran # (Auto) (0.001-0.031) x10^3u/L Absolute Lymphs (auto) (1.18-3.74) x10^3/uL Absolute Monos (auto) (0.24-0.86) x10^3/uL Absolute Nucleated RBC (0.00-0.012) x10^3u/L Lymphocytes % (19.3-51.7) % Monocytes % (4.7-12.5) % Eosinophils % (0.7-5.8) % Basophils % (0.1-1.2) % Absolute Granulocytes (1.56-6.13) x10^3/uL Basophils # (0.01-0.08) x10^3/uL pO2/FiO2 Ratio % VBG pH (7.32-7.42) VBG pCO2 at Pat Temp (42-55) mm/Hg VBG pO2 at Pat Temp (25-40) mm/Hg VBG HCO3 (22-28) meq/L VBG O2 Sat (Alejandra) (95-100) VBG Base Excess (-2.0-2.0) VBG Hemoglobin VBG Carboxyhemoglobin (0.0-6.9) % T HGB POC Potassium (3.5-5.1) Sodium 129 L (135-145) mmol/L Potassium 5.1 D (3.5-5.1) mmol/L Chloride 100 (98-107) mmol/L Carbon Dioxide 8 L* (22-30) mmol/L Anion Gap 25.4 H (5-15) MEQ/L BUN 24 H (7-17) mg/dL Creatinine 1.33 H (0.52-1.04) mg/dL Estimated GFR 52.2 ML/MIN Glucose 579 H* (74-106) mg/dL POC Glucometer 516 H* 404 H (74 to 106) mg/dL Lactic Acid (0.4-2.0) Calcium 8.5 (8.4-10.2) mg/dL Total Bilirubin (0.2-1.3) mg/dL AST (14-36) U/L ALT (0-35) U/L Alkaline Phosphatase (38-126) U/L Serum Total Protein (6.3-8.2) g/dL Albumin (3.5-5.0) g/dL Urine Color (Yellow) Urine Appearance (Clear) Urine pH (4.6-8.0) Ur Specific Riley (1.005-1.030) Urine Protein (Negative) Urine Glucose (UA) (Negative) mg/dL Urine Ketones (Negative) Urine Blood (Negative) Urine Nitrite (Negative) Urine Bilirubin (Negative) Urine Urobilinogen (0.2) mg/dL Ur Leukocyte Esterase (Negative) U Hyaline Cast (Auto) (0-2) /LPF Urine Microscopic RBC (0-5) /HPF Urine Microscopic WBC (0-5) /HPF Ur Epithelial Cells (None Seen) /HPF Urine Bacteria (None Seen) /HPF Urine Culture Reflexed (NO) Influenza Type A Ag (NEGATIVE) Influenza Type B Ag (NEGATIVE) RSV (PCR) (NEGATIVE) SARS-CoV-2 (PCR) (NEGATIVE) Group A Strep Antibody (NEGATIVE) 01/21/25 01/21/25 01/21/25 Range/Units 00:00 01:02 01:50 WBC (3.98-10.04) x10^3/uL RBC (3.93-5.22) x10^6/uL Hgb (11.2-15.7) g/dL Hct (34.1-44.9) % MCV (79.4-94.8) fL MCH (25.6-32.2) pg MCHC (32.2-35.5) g/dL RDW (11.7-14.4) % Plt Count (182-369) x10^3/uL MPV (9.4-12.3) fL Gran % (34.0-71.1) % Immature Gran % (Auto) (0.001-0.429) % Nucleat RBC Rel Count (0.00-0.2) % Eos # (Auto) (0.04-0.36) x10^3/uL Immature Gran # (Auto) (0.001-0.031) x10^3u/L Absolute Lymphs (auto) (1.18-3.74) x10^3/uL Absolute Monos (auto) (0.24-0.86) x10^3/uL Absolute Nucleated RBC (0.00-0.012) x10^3u/L Lymphocytes % (19.3-51.7) % Monocytes % (4.7-12.5) % Eosinophils % (0.7-5.8) % Basophils % (0.1-1.2) % Absolute Granulocytes (1.56-6.13) x10^3/uL Basophils # (0.01-0.08) x10^3/uL pO2/FiO2 Ratio % VBG pH (7.32-7.42) VBG pCO2 at Pat Temp (42-55) mm/Hg VBG pO2 at Pat Temp (25-40) mm/Hg VBG HCO3 (22-28) meq/L VBG O2 Sat (Alejandra) (95-100) VBG Base Excess (-2.0-2.0) VBG Hemoglobin VBG Carboxyhemoglobin (0.0-6.9) % T HGB POC Potassium (3.5-5.1) Sodium 130 L (135-145) mmol/L Potassium 4.3 (3.5-5.1) mmol/L Chloride 104 (98-107) mmol/L Carbon Dioxide 18 L (22-30) mmol/L Anion Gap 12.4 (5-15) MEQ/L BUN 24 H (7-17) mg/dL Creatinine 1.19 H (0.52-1.04) mg/dL Estimated GFR 59.7 ML/MIN Glucose 238 H (74-106) mg/dL POC Glucometer 289 H 254 H (74 to 106) mg/dL Lactic Acid (0.4-2.0) Calcium 8.3 L (8.4-10.2) mg/dL Total Bilirubin (0.2-1.3) mg/dL AST (14-36) U/L ALT (0-35) U/L Alkaline Phosphatase (38-126) U/L Serum Total Protein (6.3-8.2) g/dL Albumin (3.5-5.0) g/dL Urine Color (Yellow) Urine Appearance (Clear) Urine pH (4.6-8.0) Ur Specific Riley (1.005-1.030) Urine Protein (Negative) Urine Glucose (UA) (Negative) mg/dL Urine Ketones (Negative) Urine Blood (Negative) Urine Nitrite (Negative) Urine Bilirubin (Negative) Urine Urobilinogen (0.2) mg/dL Ur Leukocyte Esterase (Negative) U Hyaline Cast (Auto) (0-2) /LPF Urine Microscopic RBC (0-5) /HPF Urine Microscopic WBC (0-5) /HPF Ur Epithelial Cells (None Seen) /HPF Urine Bacteria (None Seen) /HPF Urine Culture Reflexed (NO) Influenza Type A Ag (NEGATIVE) Influenza Type B Ag (NEGATIVE) RSV (PCR) (NEGATIVE) SARS-CoV-2 (PCR) (NEGATIVE) Group A Strep Antibody (NEGATIVE) 01/21/25 01/21/25 01/21/25 Range/Units 01:56 03:04 04:02 WBC (3.98-10.04) x10^3/uL RBC (3.93-5.22) x10^6/uL Hgb (11.2-15.7) g/dL Hct (34.1-44.9) % MCV (79.4-94.8) fL MCH (25.6-32.2) pg MCHC (32.2-35.5) g/dL RDW (11.7-14.4) % Plt Count (182-369) x10^3/uL MPV (9.4-12.3) fL Gran % (34.0-71.1) % Immature Gran % (Auto) (0.001-0.429) % Nucleat RBC Rel Count (0.00-0.2) % Eos # (Auto) (0.04-0.36) x10^3/uL Immature Gran # (Auto) (0.001-0.031) x10^3u/L Absolute Lymphs (auto) (1.18-3.74) x10^3/uL Absolute Monos (auto) (0.24-0.86) x10^3/uL Absolute Nucleated RBC (0.00-0.012) x10^3u/L Lymphocytes % (19.3-51.7) % Monocytes % (4.7-12.5) % Eosinophils % (0.7-5.8) % Basophils % (0.1-1.2) % Absolute Granulocytes (1.56-6.13) x10^3/uL Basophils # (0.01-0.08) x10^3/uL pO2/FiO2 Ratio % VBG pH (7.32-7.42) VBG pCO2 at Pat Temp (42-55) mm/Hg VBG pO2 at Pat Temp (25-40) mm/Hg VBG HCO3 (22-28) meq/L VBG O2 Sat (Alejandra) (95-100) VBG Base Excess (-2.0-2.0) VBG Hemoglobin VBG Carboxyhemoglobin (0.0-6.9) % T HGB POC Potassium (3.5-5.1) Sodium (135-145) mmol/L Potassium (3.5-5.1) mmol/L Chloride (98-107) mmol/L Carbon Dioxide (22-30) mmol/L Anion Gap (5-15) MEQ/L BUN (7-17) mg/dL Creatinine (0.52-1.04) mg/dL Estimated GFR ML/MIN Glucose (74-106) mg/dL POC Glucometer 206 H 204 H 163 H (74 to 106) mg/dL Lactic Acid (0.4-2.0) Calcium (8.4-10.2) mg/dL Total Bilirubin (0.2-1.3) mg/dL AST (14-36) U/L ALT (0-35) U/L Alkaline Phosphatase (38-126) U/L Serum Total Protein (6.3-8.2) g/dL Albumin (3.5-5.0) g/dL Urine Color (Yellow) Urine Appearance (Clear) Urine pH (4.6-8.0) Ur Specific Riley (1.005-1.030) Urine Protein (Negative) Urine Glucose (UA) (Negative) mg/dL Urine Ketones (Negative) Urine Blood (Negative) Urine Nitrite (Negative) Urine Bilirubin (Negative) Urine Urobilinogen (0.2) mg/dL Ur Leukocyte Esterase (Negative) U Hyaline Cast (Auto) (0-2) /LPF Urine Microscopic RBC (0-5) /HPF Urine Microscopic WBC (0-5) /HPF Ur Epithelial Cells (None Seen) /HPF Urine Bacteria (None Seen) /HPF Urine Culture Reflexed (NO) Influenza Type A Ag (NEGATIVE) Influenza Type B Ag (NEGATIVE) RSV (PCR) (NEGATIVE) SARS-CoV-2 (PCR) (NEGATIVE) Group A Strep Antibody (NEGATIVE) 01/21/25 Range/Units 05:05 WBC (3.98-10.04) x10^3/uL RBC (3.93-5.22) x10^6/uL Hgb (11.2-15.7) g/dL Hct (34.1-44.9) % MCV (79.4-94.8) fL MCH (25.6-32.2) pg MCHC (32.2-35.5) g/dL RDW (11.7-14.4) % Plt Count (182-369) x10^3/uL MPV (9.4-12.3) fL Gran % (34.0-71.1) % Immature Gran % (Auto) (0.001-0.429) % Nucleat RBC Rel Count (0.00-0.2) % Eos # (Auto) (0.04-0.36) x10^3/uL Immature Gran # (Auto) (0.001-0.031) x10^3u/L Absolute Lymphs (auto) (1.18-3.74) x10^3/uL Absolute Monos (auto) (0.24-0.86) x10^3/uL Absolute Nucleated RBC (0.00-0.012) x10^3u/L Lymphocytes % (19.3-51.7) % Monocytes % (4.7-12.5) % Eosinophils % (0.7-5.8) % Basophils % (0.1-1.2) % Absolute Granulocytes (1.56-6.13) x10^3/uL Basophils # (0.01-0.08) x10^3/uL pO2/FiO2 Ratio % VBG pH (7.32-7.42) VBG pCO2 at Pat Temp (42-55) mm/Hg VBG pO2 at Pat Temp (25-40) mm/Hg VBG HCO3 (22-28) meq/L VBG O2 Sat (Alejandra) (95-100) VBG Base Excess (-2.0-2.0) VBG Hemoglobin VBG Carboxyhemoglobin (0.0-6.9) % T HGB POC Potassium (3.5-5.1) Sodium (135-145) mmol/L Potassium (3.5-5.1) mmol/L Chloride (98-107) mmol/L Carbon Dioxide (22-30) mmol/L Anion Gap (5-15) MEQ/L BUN (7-17) mg/dL Creatinine (0.52-1.04) mg/dL Estimated GFR ML/MIN Glucose (74-106) mg/dL POC Glucometer 195 H (74 to 106) mg/dL Lactic Acid (0.4-2.0) Calcium (8.4-10.2) mg/dL Total Bilirubin (0.2-1.3) mg/dL AST (14-36) U/L ALT (0-35) U/L Alkaline Phosphatase (38-126) U/L Serum Total Protein (6.3-8.2) g/dL Albumin (3.5-5.0) g/dL Urine Color (Yellow) Urine Appearance (Clear) Urine pH (4.6-8.0) Ur Specific Riley (1.005-1.030) Urine Protein (Negative) Urine Glucose (UA) (Negative) mg/dL Urine Ketones (Negative) Urine Blood (Negative) Urine Nitrite (Negative) Urine Bilirubin (Negative) Urine Urobilinogen (0.2) mg/dL Ur Leukocyte Esterase (Negative) U Hyaline Cast (Auto) (0-2) /LPF Urine Microscopic RBC (0-5) /HPF Urine Microscopic WBC (0-5) /HPF Ur Epithelial Cells (None Seen) /HPF Urine Bacteria (None Seen) /HPF Urine Culture Reflexed (NO) Influenza Type A Ag (NEGATIVE) Influenza Type B Ag (NEGATIVE) RSV (PCR) (NEGATIVE) SARS-CoV-2 (PCR) (NEGATIVE) Group A Strep Antibody (NEGATIVE) Radiology Exams: Radiology Procedures Category Date Time Status CHEST 1 VIEW (PORTABLE) Stat Exams 01/20/25 15:23 Completed Medications: Medications Generic Name Dose Route Start Last Admin Trade Name Freq PRN Reason Stop Dose Admin Enoxaparin Sodium 40 mg 01/21/25 10:00 Enoxaparin Sodium 40 Mg/0.4 Ml Syringe SQ 02/20/25 09:59 DAILY ELOY Hydromorphone HCl 0.5 mg 01/20/25 22:37 01/20/25 22:46 Hydromorphone 1 Mg/1ml Inj IV 01/25/25 22:36 0.5 mg Q4H PRN PRN Administration PAIN INSULIN REGULAR IN 0.9 % NACL 100 unit in 100 mls @ 7.28 mls/hr 01/20/25 21:24 01/21/25 04:03 Myxredlin 100 Unit/100 Ml Bag IV 02/19/25 21:23 0.01 unit/kg/hr .[id number] PRN 1 mls/hr HYPERGLYCEMIA Titration Protocol 0.1 UNIT/KG/HR Potassium Chloride/Sodium Chloride 1,000 mls @ 250 mls/hr 01/20/25 21:30 01/21/25 02:03 Sodium Chloride 0.9% W/ 20 Meq Kcl/Liter IV 02/19/25 21:29 Not Given .Q4H ELOY Potassium Chloride/Dextrose/Sod Cl 1,000 mls @ 150 mls/hr 01/21/25 02:00 01/21/25 02:02 D5w/0.45ns W/ 20meq Kcl 1000 Ml IV 02/20/25 01:59 150 mls/hr .[id number] ELOY Administration Insulin Human Regular 7 unit 01/20/25 21:22 01/20/25 21:57 Insulin Regular, Human 1 Unit SQ 01/20/25 21:23 7 unit STAT ONE Administration Non-Formulary Medication 40 mg 01/21/25 10:00 Pravastatin Sodium [Pravastatin Sodium] PO 02/20/25 09:59 DAILY ELOY Ondansetron HCl 4 mg 01/20/25 22:37 01/20/25 22:46 Ondansetron Hcl 4 Mg/2 Ml Vial IV 02/19/25 22:36 4 mg Q6H PRN PRN Administration NAUSEA/VOMITING Paroxetine HCl 20 mg 01/21/25 10:00 Paroxetine Hcl 20 Mg Tablet PO 02/20/25 09:59 DAILY ELOY Discontinued Medications Generic Name Dose Route Start Last Admin Trade Name Freq PRN Reason Stop Dose Admin Gabapentin 100 mg 01/21/25 10:00 Gabapentin 100 Mg Capsule PO 02/20/25 09:59 DAILY ELOY Gabapentin 200 mg 01/21/25 12:00 Gabapentin 100 Mg Capsule PO 02/20/25 11:59 LUNCH ELOY Gabapentin 300 mg 01/20/25 22:00 01/20/25 22:31 Gabapentin 100 Mg Capsule PO 02/19/25 21:59 Not Given HS ELOY Sodium Chloride 1,000 mls @ 999 mls/hr 01/20/25 15:22 01/20/25 17:38 Sodium Chloride 0.9% 1000 Ml IV 01/20/25 16:22 Infused .Q1H1M STA Infusion Lactated Ringer's 1,000 mls @ 999 mls/hr 01/20/25 15:25 01/20/25 16:42 Lactated Ringers IV 01/20/25 16:25 Infused .Q1H1M ONE Infusion Lactated Ringer's Confirm 01/20/25 15:32 Lactated Ringers Administered 01/20/25 15:33 Dose 1,000 mls @ ud IV .STK-MED ONE Sodium Chloride Confirm 01/20/25 16:31 Sodium Chloride 0.9% 1000 Ml Administered 01/20/25 16:32 Dose 1,000 mls @ ud .ROUTE .STK-MED ONE Ceftriaxone Sodium 1 gm in 100 mls @ 200 mls/hr 01/20/25 18:47 01/20/25 18:53 Rocephin 1 Gm / 100 Ml Nacl IV 01/20/25 19:16 200 mls/hr STAT ONE 200 mls/hr Administration Ceftriaxone Sodium Confirm 01/20/25 18:50 Rocephin 1 Gm / 100 Ml Nacl Administered 01/20/25 18:51 Dose 1 gm in 100 mls @ ud IV .STK-MED ONE INSULIN REGULAR IN 0.9 % NACL Confirm 01/20/25 21:21 Myxredlin 100 Unit/100 Ml Bag Administered 01/20/25 21:22 Dose 100 unit in 100 mls @ ud IV .STK-MED ONE Potassium Chloride/Sodium Chloride Confirm 01/20/25 21:21 Sodium Chloride 0.9% W/ 20 Meq Kcl/Liter Administered 01/20/25 21:22 Dose 1,000 mls @ ud IV .STK-MED ONE Potassium Chloride/Dextrose/Sod Cl Confirm 01/21/25 01:59 D5w/0.45ns W/ 20meq Kcl 1000 Ml Administered 01/21/25 02:00 Dose 1,000 mls @ ud IV .STK-MED ONE Insulin Human Regular 10 unit 01/20/25 15:24 01/20/25 15:35 Insulin Regular, Human 1 Unit IV 01/20/25 15:25 10 unit STAT ONE Administration Insulin Human Regular Confirm 01/20/25 15:32 Insulin Regular, Human 1 Unit Administered 01/20/25 15:33 Dose 10 unit .ROUTE .STK-MED ONE Morphine Sulfate 4 mg 01/20/25 18:51 01/20/25 18:55 Morphine Sulfate 4 Mg/Ml Injection IV 01/20/25 18:52 4 mg STAT ONE Administration Morphine Sulfate Confirm 01/20/25 18:54 Morphine Sulfate 4 Mg/Ml Injection Administered 01/20/25 18:55 Dose 4 mg .ROUTE .STK-MED ONE Assessment/Plan (1) DKA (diabetic ketoacidosis) Current Visit: No Status: Acute Assessment & Plan: -Anion gap closed, bicarbonate normalized, ketonemia resolved. Transitioning off insulin drip. -Start basalbolus regimen (glargine + correction scale). -Accu-Cheks before meals and at bedtime; titrate doses based on trends. -Hold insulin pump per patient preference due to recurrent hypoglycemia at home and lack of timely endocrine follow-up. -Monitor BMP [id number] for potassium, bicarbonate, anion gap. -Continue maintenance IV fluids until consistent PO intake established. -Treat left basilar pneumonia with ceftriaxone + azithromycin. -Reinforce sick-day management, insulin administration, and hypoglycemia recognition. -Can discharge once glucose stable on new regimen, tolerating PO, and electrolytes remain stable. -A1c 10.66 Code(s): E11.10 - TYPE 2 DIABETES MELLITUS WITH KETOACIDOSIS WITHOUT COMA (2) Pneumonia Current Visit: Yes Status: Acute Assessment & Plan: -CXR showing subtle left base interstitial alveolar opacities, possible pneumonia/pneumonitis -WBC at 12.9 -Ceftriaxone/azithromycin initiated Code(s): J18.9 - PNEUMONIA, UNSPECIFIED ORGANISM (3) Type 1 diabetes Current Visit: Yes Status: Acute Assessment & Plan: see DKA -Reinforce sick-day management, glucose monitoring expectations, and appropriate response to Dexcom alerts. -Evaluate home insulin regimen after DKA resolution to determine whether recent patterns suggest under-dosing or impaired absorption. -Plan endocrinology follow-up for regimen optimization and education reinforcement. (4) HLD (hyperlipidemia) Current Visit: Yes Status: Acute Assessment & Plan: -Continue statin when able Code(s): E78.5 - HYPERLIPIDEMIA, UNSPECIFIED (5) Anxiety Current Visit: Yes Status: Acute Assessment & Plan: -Continue Paxil Code(s): F41.9 - ANXIETY DISORDER, UNSPECIFIED (6) Fibromyalgia Current Visit: Yes Status: Acute Assessment & Plan: -Continue home regimen VTE: Lovenox PPI Protonix Dispo: 1-2 days The patient required critical care management due to acute diabetic ketoacidosis with severe metabolic acidosis, significant electrolyte derangements, and hemodynamic instability risk. I provided critical care services totaling 50 minutes , which included continuous evaluation of metabolic parameters, interpretation of serial laboratory results, titration of insulin infusion, management of IV fluids and electrolytes, prevention of rapid osmotic shifts, assessment for evolving end-organ dysfunction, and coordination of care under the hospital DKA protocol. This time reflects direct patient management and medical decision-making exclusive of separately billable procedures.
[2025-01-21 06:13] LABS: Hematocrit 34.1 % (34.1-44.9); Hemoglobin 11.3 g/dL (11.2-15.7); Mean Corpuscular Hemoglobin 29.1 pg (25.6-32.2); Mean Corpuscular Hgb Concent. 33.1 g/dL (32.2-35.5); Platelet Count 319 x10^3/uL (182-369); Red Blood Count 3.88 x10^6/uL (3.93-5.22); White Blood Count 12.9 x10^3/uL (3.98-10.04)
[2025-01-21 06:27] LABS: Calcium 8.3 mg/dL (8.4-10.2); Carbon Dioxide 19.0 mmol/L (22-30); Creatinine 1 1.11 mg/dL (0.52-1.04); EST GLOMERULAR FILTRATION RATE 64.8 ML/MIN; Glucose 164.0 mg/dL (74-106); Potassium 4.3 mmol/L (3.5-5.1)
[2025-01-21] MEDS ORDERED: NON-FORMULARY ITEM (Pravastatin Sodium [Pravastatin Sodium] 40 MG Tablet) PO SCH (10:00)
[2025-01-21 10:11] LABS: Calcium 8.5 mg/dL (8.4-10.2); Carbon Dioxide 19.0 mmol/L (22-30); Creatinine 1 1.07 mg/dL (0.52-1.04); EST GLOMERULAR FILTRATION RATE 67.8 ML/MIN; Glucose 128.0 mg/dL (74-106); Potassium 4.1 mmol/L (3.5-5.1)
[2025-01-21] MEDS: ZITHROMAX IV*** 500 MG in Sodium Chloride 0.9% 250 ML 250 ML IV SCH (10:43)
[2025-01-21] MEDS: Lantus Insulin SQ SCH (10:43)
[2025-01-21] MEDS: Paxil 20 MG PO SCH (10:43)
[2025-01-21] MEDS: ZOCOR 20MG PO SCH (10:43)
[2025-01-21] MEDS: ENOXAPARIN SODIUM SQ SCH (10:44)
[2025-01-21] MEDS: NORCO 5/325 MG PO PRN (13:12)
[2025-01-21] MEDS: HUMALOG SQ PRN (14:55)
[2025-01-21 15:01] LABS: Calcium 8.4 mg/dL (8.4-10.2); Creatinine 1 0.95 mg/dL (0.52-1.04); EST GLOMERULAR FILTRATION RATE 78.2 ML/MIN; Glucose 204.0 mg/dL (74-106)
[2025-01-21 15:07] LABS: Carbon Dioxide 16.0 mmol/L (22-30)
[2025-01-21 15:08] LABS: Potassium 5.5 mmol/L (3.5-5.1)
[2025-01-21] MEDS ORDERED: APRESOLINE 20 MG/ML INJ ONE (17:07)
[2025-01-21] MEDS: APRESOLINE 20 MG/ML INJ IV PRN (17:42)
[2025-01-21] MEDS: HUMALOG SQ SCH (17:45)
[2025-01-21 17:53] LABS: Calcium 8.7 mg/dL (8.4-10.2); Carbon Dioxide 19.0 mmol/L (22-30); Creatinine 1 0.9 mg/dL (0.52-1.04); EST GLOMERULAR FILTRATION RATE 83.4 ML/MIN; Glucose 137.0 mg/dL (74-106)
[2025-01-21 18:01] LABS: Potassium 4.2 mmol/L (3.5-5.1)
[2025-01-21] MEDS: NORVASC 5 MG PO ONE (20:34)
[2025-01-21] MEDS: IMODIUM 2 MG PO PRN (20:34)
[2025-01-21] MEDS: ROCEPHIN 1 GM / 100 ML NaCl 1 GM/100 ML IVPB IV SCH (22:36)
[2025-01-22] MEDS ORDERED: TROUGH DRUG LEVELS IJ ONE (05:30)
--- NOTE | 2025-01-22 05:33 | PCM.NOTE ---
Date and Time: 01/22/25 0532 Subjective Assessment: Ms. Perez is a 40 year old female with pmhx of type 1 diabetes, fibromyalgia, rheumatoid arthritis, anxiety, and depression who presented to ED 01/20/25 after her Dexcom notified her of significantly elevated glucose levels. On arrival, she appeared clinically stable without nausea, vomiting, abdominal pain, or other symptoms typical of severe metabolic decompensation. Vital signs were notable for tachycardia in the 120s and mild tachypnea; the remainder were stable. Initial labs demonstrated marked hyperglycemia with serum glucose of 579 mg/dL, associated hyponatremia at 129 mmol/L (corrected for hyperglycemia), CO2 of 8, and an anion gap of 25.4, consistent with [id number] metabolic acidosi s. Renal indices showed BUN 24 and creatinine 1.33, suggestive of mild prerenal azotemia in the setting of volume depletion. CBC showed leukocytosis to 10.7, likely a stress response. She was started on an insulin infusion under the DKA protocol. After fluid resuscitation and initiation of insulin therapy, repeat chemistries showed improvement: sodium 130 , CO2 18, BUN stable at 24, creatinine improved to 1.19, and glucose decreased to 195. CXR showed subtle left base interstitial alveolar opacities, possible pneumonia/pneumonitis. WBC elevated at 12.9. Ceftriaxone/azithromycin initiated. 01/21: Met with the patient at bedside this morning. She reports feeling significantly better overall, with improved energy and complete resolution of her abdominal discomfort. She denies abdominal pain, nausea, or vomiting. Her DKA has resolved with closure of the anion gap and normalization of metabolic parameters. 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 After discussing risks and benefits, she prefers to discontinue the pump at this time, and we will transition her to a basalbolus insulin regimen with close inpatient monitoring and glucose education. CXR revealed subtle left basilar interstitial and alveolar opacities concerning for early pneumonia or pneumonitis, and her WBC is elevated at 12.9. Although she denies cough or shortness of breath, this may have contributed to her DKA presentation. She will be started on empiric ceftriaxone and azithromycin for possible community-acquired pneumonia. If her condition remains stable and she tolerates the new insulin regimen, she is likely appropriate for discharge tomorrow. Objective Data Vital Signs: Vital Signs - 24 hr Temp Pulse Resp BP Pulse Ox 01/22/25 04:00 97.7 F 113 H 16 178/95 97 01/22/25 03:16 109 H 15 179/108 99 01/22/25 03:00 112 H 20 237/116 99 01/22/25 02:00 111 H 12 167/92 95 01/22/25 01:33 112 H 14 182/99 94 L 01/22/25 01:10 105 H 10 L 244/122 96 01/22/25 00:01 115 H 01/22/25 00:00 97.7 F 115 H 14 161/86 96 01/21/25 23:00 118 H 16 173/79 95 01/21/25 22:32 110 H 14 94 L 01/21/25 21:02 112 H 23 95 01/21/25 20:00 97.8 F 113 H 15 167/84 96 01/21/25 19:00 115 H 18 188/100 97 01/21/25 18:50 113 H 14 97 01/21/25 18:30 116 H 15 98 01/21/25 17:05 183/98 01/21/25 17:00 109 H 17 182/99 96 01/21/25 16:08 98.0 F 119 H 15 172/85 96 01/21/25 16:00 115 H 19 176/87 01/21/25 15:00 112 H 23 183/90 01/21/25 14:56 109 H 21 188/100 01/21/25 14:47 109 H 15 183/95 01/21/25 14:00 114 H 13 99 01/21/25 13:40 113 H 13 99 01/21/25 13:00 119 H 17 99 01/21/25 12:36 111 H 16 100 01/21/25 12:00 97.5 F 109 H 164/85 01/21/25 11:00 113 H 17 147/82 100 01/21/25 10:00 102 H 14 159/80 99 01/21/25 09:00 97.5 F 105 H 23 154/82 99 01/21/25 08:00 104 H 23 138/71 99 01/21/25 07:00 102 H 11 L 153/76 96 01/21/25 06:00 102 H 11 L 102/55 95 Pain Assessment - Last Documented Pain Intensity 7 Pain Scale Used [facility] Intake and Output: Intake & Output 01/19/25 01/20/25 01/21/25 01/22/25 11:59 11:59 11:59 11:59 Intake Total 2796 2182 Output Total 675 1400 Balance 1791 782 Weight 72.8 kg Lab Results: Lab Results-Last 24 Hours 01/21/25 01/21/25 01/21/25 Range/Units 06:05 06:07 06:07 WBC 12.9 H (3.98-10.04) x10^3/uL RBC 3.88 L (3.93-5.22) x10^6/uL Hgb 11.3 (11.2-15.7) g/dL Hct 34.1 (34.1-44.9) % MCV 87.9 (79.4-94.8) fL MCH 29.1 (25.6-32.2) pg MCHC 33.1 (32.2-35.5) g/dL RDW 13.0 (11.7-14.4) % Plt Count 319 (182-369) x10^3/uL MPV 9.9 (9.4-12.3) fL Sodium 131 L (135-145) mmol/L Potassium 4.3 (3.5-5.1) mmol/L Chloride 105 (98-107) mmol/L Carbon Dioxide 19 L (22-30) mmol/L Anion Gap 10.9 (5-15) MEQ/L BUN 24 H (7-17) mg/dL Creatinine 1.11 H (0.52-1.04) mg/dL Estimated GFR 64.8 ML/MIN Glucose 164 H (74-106) mg/dL POC Glucometer 154 H (74 to 106) mg/dL Hemoglobin A1c (4.5-6.0) % Calcium 8.3 L (8.4-10.2) mg/dL 01/21/25 01/21/25 01/21/25 Range/Units 06:07 07:02 08:03 WBC (3.98-10.04) x10^3/uL RBC (3.93-5.22) x10^6/uL Hgb (11.2-15.7) g/dL Hct (34.1-44.9) % MCV (79.4-94.8) fL MCH (25.6-32.2) pg MCHC (32.2-35.5) g/dL RDW (11.7-14.4) % Plt Count (182-369) x10^3/uL MPV (9.4-12.3) fL Sodium (135-145) mmol/L Potassium (3.5-5.1) mmol/L Chloride (98-107) mmol/L Carbon Dioxide (22-30) mmol/L Anion Gap (5-15) MEQ/L BUN (7-17) mg/dL Creatinine (0.52-1.04) mg/dL Estimated GFR ML/MIN Glucose (74-106) mg/dL POC Glucometer 140 H 130 H (74 to 106) mg/dL Hemoglobin A1c 10.66 H (4.5-6.0) % Calcium (8.4-10.2) mg/dL 01/21/25 01/21/25 01/21/25 Range/Units 09:16 09:35 10:20 WBC (3.98-10.04) x10^3/uL RBC (3.93-5.22) x10^6/uL Hgb (11.2-15.7) g/dL Hct (34.1-44.9) % MCV (79.4-94.8) fL MCH (25.6-32.2) pg MCHC (32.2-35.5) g/dL RDW (11.7-14.4) % Plt Count (182-369) x10^3/uL MPV (9.4-12.3) fL Sodium 132 L (135-145) mmol/L Potassium 4.1 (3.5-5.1) mmol/L Chloride 106 (98-107) mmol/L Carbon Dioxide 19 L (22-30) mmol/L Anion Gap 11.5 (5-15) MEQ/L BUN 22 H (7-17) mg/dL Creatinine 1.07 H (0.52-1.04) mg/dL Estimated GFR 67.8 ML/MIN Glucose 128 H (74-106) mg/dL POC Glucometer 139 H 108 H (74 to 106) mg/dL Hemoglobin A1c (4.5-6.0) % Calcium 8.5 (8.4-10.2) mg/dL 01/21/25 01/21/25 01/21/25 Range/Units 12:13 13:15 14:40 WBC (3.98-10.04) x10^3/uL RBC (3.93-5.22) x10^6/uL Hgb (11.2-15.7) g/dL Hct (34.1-44.9) % MCV (79.4-94.8) fL MCH (25.6-32.2) pg MCHC (32.2-35.5) g/dL RDW (11.7-14.4) % Plt Count (182-369) x10^3/uL MPV (9.4-12.3) fL Sodium 129 L (135-145) mmol/L Potassium 5.5 H D (3.5-5.1) mmol/L Chloride 106 (98-107) mmol/L Carbon Dioxide 16 L* (22-30) mmol/L Anion Gap 13.2 (5-15) MEQ/L BUN 19 H (7-17) mg/dL Creatinine 0.95 (0.52-1.04) mg/dL Estimated GFR 78.2 ML/MIN Glucose 204 H (74-106) mg/dL POC Glucometer 117 H 151 H (74 to 106) mg/dL Hemoglobin A1c (4.5-6.0) % Calcium 8.4 (8.4-10.2) mg/dL 01/21/25 01/21/25 01/21/25 Range/Units 14:41 16:06 17:35 WBC (3.98-10.04) x10^3/uL RBC (3.93-5.22) x10^6/uL Hgb (11.2-15.7) g/dL Hct (34.1-44.9) % MCV (79.4-94.8) fL MCH (25.6-32.2) pg MCHC (32.2-35.5) g/dL RDW (11.7-14.4) % Plt Count (182-369) x10^3/uL MPV (9.4-12.3) fL Sodium 132 L (135-145) mmol/L Potassium 4.2 D (3.5-5.1) mmol/L Chloride 106 (98-107) mmol/L Carbon Dioxide 19 L (22-30) mmol/L Anion Gap 10.3 (5-15) MEQ/L BUN 16 (7-17) mg/dL Creatinine 0.90 (0.52-1.04) mg/dL Estimated GFR 83.4 ML/MIN Glucose 137 H (74-106) mg/dL POC Glucometer 198 H 161 H (74 to 106) mg/dL Hemoglobin A1c (4.5-6.0) % Calcium 8.7 (8.4-10.2) mg/dL 01/21/25 01/21/25 01/22/25 Range/Units 20:38 22:34 00:09 WBC (3.98-10.04) x10^3/uL RBC (3.93-5.22) x10^6/uL Hgb (11.2-15.7) g/dL Hct (34.1-44.9) % MCV (79.4-94.8) fL MCH (25.6-32.2) pg MCHC (32.2-35.5) g/dL RDW (11.7-14.4) % Plt Count (182-369) x10^3/uL MPV (9.4-12.3) fL Sodium (135-145) mmol/L Potassium (3.5-5.1) mmol/L Chloride (98-107) mmol/L Carbon Dioxide (22-30) mmol/L Anion Gap (5-15) MEQ/L BUN (7-17) mg/dL Creatinine (0.52-1.04) mg/dL Estimated GFR ML/MIN Glucose (74-106) mg/dL POC Glucometer 153 H 168 H 116 H (74 to 106) mg/dL Hemoglobin A1c (4.5-6.0) % Calcium (8.4-10.2) mg/dL 01/22/25 01/22/25 01/22/25 Range/Units 02:36 03:17 04:13 WBC (3.98-10.04) x10^3/uL RBC (3.93-5.22) x10^6/uL Hgb (11.2-15.7) g/dL Hct (34.1-44.9) % MCV (79.4-94.8) fL MCH (25.6-32.2) pg MCHC (32.2-35.5) g/dL RDW (11.7-14.4) % Plt Count (182-369) x10^3/uL MPV (9.4-12.3) fL Sodium (135-145) mmol/L Potassium (3.5-5.1) mmol/L Chloride (98-107) mmol/L Carbon Dioxide (22-30) mmol/L Anion Gap (5-15) MEQ/L BUN (7-17) mg/dL Creatinine (0.52-1.04) mg/dL Estimated GFR ML/MIN Glucose (74-106) mg/dL POC Glucometer 82 90 158 H (74 to 106) mg/dL Hemoglobin A1c (4.5-6.0) % Calcium (8.4-10.2) mg/dL 01/22/25 Range/Units 05:21 WBC (3.98-10.04) x10^3/uL RBC (3.93-5.22) x10^6/uL Hgb (11.2-15.7) g/dL Hct (34.1-44.9) % MCV (79.4-94.8) fL MCH (25.6-32.2) pg MCHC (32.2-35.5) g/dL RDW (11.7-14.4) % Plt Count (182-369) x10^3/uL MPV (9.4-12.3) fL Sodium (135-145) mmol/L Potassium (3.5-5.1) mmol/L Chloride (98-107) mmol/L Carbon Dioxide (22-30) mmol/L Anion Gap (5-15) MEQ/L BUN (7-17) mg/dL Creatinine (0.52-1.04) mg/dL Estimated GFR ML/MIN Glucose (74-106) mg/dL POC Glucometer 210 H (74 to 106) mg/dL Hemoglobin A1c (4.5-6.0) % Calcium (8.4-10.2) mg/dL Radiology Exams: Radiology Procedures Category Date Time Status CHEST 1 VIEW (PORTABLE) Stat Exams 01/20/25 15:23 Completed Medications: Medications Generic Name Dose Route Start Last Admin Trade Name Freq PRN Reason Stop Dose Admin Hydrocodone Bitart/Acetaminophen 1 tab 01/21/25 12:49 01/22/25 01:21 Hydrocodone/Apap 5/325 1 Tab Tablet PO 01/26/25 12:48 1 tab Q4H PRN PRN Administration PAIN Amlodipine Besylate 5 mg 01/22/25 10:00 Amlodipine Besylate 5 Mg Tablet PO 02/21/25 09:59 QAM ELOY Amlodipine Besylate 5 mg 01/21/25 20:24 01/21/25 20:34 Amlodipine Besylate 5 Mg Tablet PO 01/21/25 20:25 5 mg STAT ONE Administration Enoxaparin Sodium 40 mg 01/21/25 10:00 01/21/25 10:44 Enoxaparin Sodium 40 Mg/0.4 Ml Syringe SQ 02/20/25 09:59 40 mg DAILY ELOY Administration Ceftriaxone Sodium 1 gm in 100 mls @ 200 mls/hr 01/21/25 22:00 01/21/25 22:36 Rocephin 1 Gm / 100 Ml Nacl IV 02/20/25 21:59 200 mls/hr HS ELOY Administration Azithromycin 500 mg/ Sodium 250 mls @ 250 mls/hr 01/21/25 10:00 01/21/25 10:43 Chloride IV 02/20/25 09:59 250 mls/hr Q24H10 ELOY Administration Insulin Glargine 30 unit 01/21/25 10:00 01/21/25 10:43 Insulin Glargine 1 Unit SQ 02/20/25 09:59 30 unit QAM ELOY Administration Insulin Human Lispro 0 unit 01/21/25 14:46 01/21/25 22:49 Insulin Lispro 1 Unit SQ 02/20/25 14:45 3 unit UD PRN Administration HYPERGLYCEMIA Insulin Human Lispro 5 unit 01/21/25 16:30 01/21/25 17:45 Insulin Lispro 1 Unit SQ 02/20/25 16:29 5 unit AC ELOY Administration Loperamide HCl 2 mg 01/21/25 20:25 01/21/25 20:34 Loperamide Hcl 2 Mg Capsule PO 02/20/25 20:24 2 mg TIDPRN PRN Administration DIARRHEA Ondansetron HCl 4 mg 01/20/25 22:37 01/21/25 14:23 Ondansetron Hcl 4 Mg/2 Ml Vial IV 02/19/25 22:36 4 mg Q6H PRN PRN Administration NAUSEA/VOMITING Paroxetine HCl 20 mg 01/21/25 10:00 01/21/25 10:43 Paroxetine Hcl 20 Mg Tablet PO 02/20/25 09:59 20 mg DAILY ELOY Administration Simvastatin 40 mg 01/21/25 10:00 01/21/25 10:43 Simvastatin 20 Mg Tablet PO 02/20/25 09:59 40 mg DAILY ELOY Administration Discontinued Medications Generic Name Dose Route Start Last Admin Trade Name Freq PRN Reason Stop Dose Admin Device 1 01/22/25 05:30 Therapuetic Drug Level Monitor Each IJ 01/22/25 05:31 1XONLY ONE Gabapentin 100 mg 01/21/25 10:00 Gabapentin 100 Mg Capsule PO 02/20/25 09:59 DAILY ELOY Gabapentin 200 mg 01/21/25 12:00 Gabapentin 100 Mg Capsule PO 02/20/25 11:59 LUNCH ELOY Gabapentin 300 mg 01/20/25 22:00 01/20/25 22:31 Gabapentin 100 Mg Capsule PO 02/19/25 21:59 Not Given HS ELOY Hydralazine HCl 5 mg 01/21/25 16:33 01/21/25 17:42 Hydralazine Hcl 20 Mg/Ml Vial IV 02/20/25 16:32 5 mg Q4H PRN Administration HYPERTENSION Hydralazine HCl Confirm 01/21/25 17:07 Hydralazine Hcl 20 Mg/Ml Vial Administered 01/21/25 17:08 Dose 20 mg .ROUTE .STK-MED ONE Hydromorphone HCl 0.5 mg 01/20/25 22:37 01/20/25 22:46 Hydromorphone 1 Mg/1ml Inj IV 01/25/25 22:36 0.5 mg Q4H PRN PRN Administration PAIN Sodium Chloride 1,000 mls @ 999 mls/hr 01/20/25 15:22 01/20/25 17:38 Sodium Chloride 0.9% 1000 Ml IV 01/20/25 16:22 Infused .Q1H1M STA Infusion Lactated Ringer's 1,000 mls @ 999 mls/hr 01/20/25 15:25 01/20/25 16:42 Lactated Ringers IV 01/20/25 16:25 Infused .Q1H1M ONE Infusion Lactated Ringer's Confirm 01/20/25 15:32 Lactated Ringers Administered 01/20/25 15:33 Dose 1,000 mls @ ud IV .STK-MED ONE Sodium Chloride Confirm 01/20/25 16:31 Sodium Chloride 0.9% 1000 Ml Administered 01/20/25 16:32 Dose 1,000 mls @ ud .ROUTE .STK-MED ONE Ceftriaxone Sodium 1 gm in 100 mls @ 200 mls/hr 01/20/25 18:47 01/20/25 18:53 Rocephin 1 Gm / 100 Ml Nacl IV 01/20/25 19:16 200 mls/hr STAT ONE 200 mls/hr Administration Ceftriaxone Sodium Confirm 01/20/25 18:50 Rocephin 1 Gm / 100 Ml Nacl Administered 01/20/25 18:51 Dose 1 gm in 100 mls @ ud IV .STK-MED ONE INSULIN REGULAR IN 0.9 % NACL Confirm 01/20/25 21:21 Myxredlin 100 Unit/100 Ml Bag Administered 01/20/25 21:22 Dose 100 unit in 100 mls @ ud IV .STK-MED ONE Potassium Chloride/Sodium Chloride Confirm 01/20/25 21:21 Sodium Chloride 0.9% W/ 20 Meq Kcl/Liter Administered 01/20/25 21:22 Dose 1,000 mls @ ud IV .STK-MED ONE INSULIN REGULAR IN 0.9 % NACL 100 unit in 100 mls @ 7.28 mls/hr 01/20/25 21:24 01/21/25 13:12 Myxredlin 100 Unit/100 Ml Bag IV 02/19/25 21:23 0 unit/kg/hr .[id number] PRN 0 mls/hr HYPERGLYCEMIA Titration Protocol 0.1 UNIT/KG/HR Potassium Chloride/Sodium Chloride 1,000 mls @ 250 mls/hr 01/20/25 21:30 01/21/25 20:18 Sodium Chloride 0.9% W/ 20 Meq Kcl/Liter IV 02/19/25 21:29 Not Given .Q4H ELOY Potassium Chloride/Dextrose/Sod Cl Confirm 01/21/25 01:59 D5w/0.45ns W/ 20meq Kcl 1000 Ml Administered 01/21/25 02:00 Dose 1,000 mls @ ud IV .STK-MED ONE Potassium Chloride/Dextrose/Sod Cl 1,000 mls @ 150 mls/hr 01/21/25 02:00 01/21/25 09:09 D5w/0.45ns W/ 20meq Kcl 1000 Ml IV 02/20/25 01:59 150 mls/hr .Q6H40M ELOY Administration Sodium Chloride 1,000 mls @ 100 mls/hr 01/21/25 15:15 01/21/25 15:16 Sodium Chloride 0.9% 1000 Ml IV 02/20/25 15:14 100 mls/hr .Q10H ELOY Administration Insulin Human Regular 10 unit 01/20/25 15:24 01/20/25 15:35 Insulin Regular, Human 1 Unit IV 01/20/25 15:25 10 unit STAT ONE Administration Insulin Human Regular Confirm 01/20/25 15:32 Insulin Regular, Human 1 Unit Administered 01/20/25 15:33 Dose 10 unit .ROUTE .STK-MED ONE Insulin Human Regular 7 unit 01/20/25 21:22 01/20/25 21:57 Insulin Regular, Human 1 Unit SQ 01/20/25 21:23 7 unit STAT ONE Administration Morphine Sulfate 4 mg 01/20/25 18:51 01/20/25 18:55 Morphine Sulfate 4 Mg/Ml Injection IV 01/20/25 18:52 4 mg STAT ONE Administration Morphine Sulfate Confirm 01/20/25 18:54 Morphine Sulfate 4 Mg/Ml Injection Administered 01/20/25 18:55 Dose 4 mg .ROUTE .STK-MED ONE Assessment/Plan (1) DKA (diabetic ketoacidosis) Current Visit: No Status: Acute Assessment & Plan: -Anion gap closed, bicarbonate normalized, ketonemia resolved. Transitioning off insulin drip. -Start basalbolus regimen (glargine + correction scale). -Accu-Cheks before meals and at bedtime; titrate doses based on trends. -Hold insulin pump per patient preference due to recurrent hypoglycemia at home and lack of timely endocrine follow-up. -Monitor BMP [id number] for potassium, bicarbonate, anion gap. -Continue maintenance IV fluids until consistent PO intake established. -Treat left basilar pneumonia with ceftriaxone + azithromycin. -Reinforce sick-day management, insulin administration, and hypoglycemia recognition. -Can discharge once glucose stable on new regimen, tolerating PO, and electrolytes remain stable. -A1c 10.66 Code(s): E11.10 - TYPE 2 DIABETES MELLITUS WITH KETOACIDOSIS WITHOUT COMA (2) Pneumonia Current Visit: Yes Status: Acute Assessment & Plan: -CXR showing subtle left base interstitial alveolar opacities, possible pneumonia/pneumonitis -WBC at 12.9 -Ceftriaxone/azithromycin initiated Code(s): J18.9 - PNEUMONIA, UNSPECIFIED ORGANISM (3) Type 1 diabetes Current Visit: Yes Status: Acute Assessment & Plan: see DKA -Reinforce sick-day management, glucose monitoring expectations, and appropriate response to Dexcom alerts. -Evaluate home insulin regimen after DKA resolution to determine whether recent patterns suggest under-dosing or impaired absorption. -Plan endocrinology follow-up for regimen optimization and education re inforcement. (4) HLD (hyperlipidemia) Current Visit: Yes Status: Acute Assessment & Plan: -Continue statin when able Code(s): E78.5 - HYPERLIPIDEMIA, UNSPECIFIED (5) Anxiety Current Visit: Yes Status: Acute Assessment & Plan: -Continue Paxil Code(s): F41.9 - ANXIETY DISORDER, UNSPECIFIED (6) Fibromyalgia Current Visit: Yes Status: Acute Assessment & Plan: -Continue home regimen VTE: Lovenox PPI Protonix Dispo: 1-2 days The patient required critical care management due to acute diabetic ketoacidosis with severe metabolic acidosis, significant electrolyte derangements, and hemodynamic instability risk. I provided critical care services totaling 50 minutes , which included continuous evaluation of metabolic parameters, interpretation of serial laboratory results, titration of insulin infusion, management of IV fluids and electrolytes, prevention of rapid osmotic shifts, assessment for evolving end-organ dysfunction, and coordination of care under the hospital DKA protocol. This time reflects direct patient management and medical decision-making exclusive of separately billable procedures. Code(s): E11.10 - TYPE 2 DIABETES MELLITUS WITH KETOACIDOSIS WITHOUT COMA (2) Pneumonia Current Visit: Yes Status: Acute Code(s): J18.9 - PNEUMONIA, UNSPECIFIED ORGANISM (3) Type 1 diabetes Current Visit: Yes Status: Acute (4) HLD (hyperlipidemia) Current Visit: Yes Status: Acute Code(s): E78.5 - HYPERLIPIDEMIA, UNSPECIFIED (5) Anxiety Current Visit: Yes Status: Acute Code(s): F41.9 - ANXIETY DISORDER, UNSPECIFIED (6) Fibromyalgia Current Visit: Yes Status: Acute
[2025-01-22 06:06] LABS: BASOPHIL % 0.9 % (0.1-1.2); Basophil (Absolute #) 0.08 x10^3/uL (0.01-0.08); Eosinophil (Absolute #) 0.15 x10^3/uL (0.04-0.36); Hematocrit 37.3 % (34.1-44.9); Hemoglobin 12.1 g/dL (11.2-15.7); IMMATURE GRAN # 0.02 x10^3u/L (0.001-0.031); IMMATURE GRAN % 0.2 % (0.001-0.429); Lymphocyte (Absolute #) 3.43 x10^3/uL (1.18-3.74); Mean Corpuscular Hemoglobin 28.7 pg (25.6-32.2); Mean Corpuscular Hgb Concent. 32.4 g/dL (32.2-35.5); Monocyte (Absolute #) 0.70 x10^3/uL (0.24-0.86); NUCLEATED RBC # 0.00 x10^3u/L (0.00-0.012); NUCLEATED RBC % 0.0 % (0.00-0.2); Platelet Count 331 x10^3/uL (182-369); Red Blood Count 4.21 x10^6/uL (3.93-5.22); White Blood Count 9.3 x10^3/uL (3.98-10.04)
[2025-01-22 06:33] LABS: Calcium 8.7 mg/dL (8.4-10.2); Carbon Dioxide 21.0 mmol/L (22-30); Creatinine 1 0.71 mg/dL (0.52-1.04); EST GLOMERULAR FILTRATION RATE 110.9 ML/MIN; Glucose 230.0 mg/dL (74-106); Potassium 3.9 mmol/L (3.5-5.1); SGOT/AST 28.0 U/L (14-36); SGPT/ALT 13.0 U/L (0-35); Total Protein 6.0 g/dL (6.3-8.2)
[2025-01-22] MEDS: TRANDATE 20 MG/4 ML SYRINGE IV ONE (06:43)
[2025-01-22] MEDS: NORVASC 5 MG PO SCH (08:32)
[2025-01-22] MEDS: HUMALOG SQ PRN (08:33)
[2025-01-22 11:37] VITALS: BP 159/73; RESP 21; TEMP 97.8; O2SAT 98
--- NOTE | 2025-01-22 11:52 | PCM.DS ---
Discharge Summary Date of Admission: 01/20/25 19:22 Date of Discharge: 01/22/25 Admitting Physician: MIKEY SWAN MD Primary Care Provider: ALAN MORAN Allergies Allergies No Known Drug Allergies Allergy (Verified 01/12/23 02:26) Hospital Summary - Hospital Course Hospital Course: Ms. Perez, a 40-year-old woman with a history of type 1 diabetes, fibromyalgia, rheumatoid arthritis, anxiety, and depression, presented on 01/20/25 after her Dexcom reported critically elevated glucose levels. On arrival, she was hemodynamically stable aside from tachycardia into the 120s and mild tachypnea. She denied abdominal pain, nausea, vomiting, or classic DKA symptoms. Initial labs demonstrated glucose 579 mg/dL, CO2 8, anion gap 25.4, Na 129 (corrected), BUN 24, creatinine 1.33, consistent with DKA with mild prerenal azotemia. CBC showed leukocytosis to 10.7. She was started on the institutional DKA insulin infusion protocol with aggressive IV fluid resuscitation. Labs trended appropriately with closure of the anion gap, improvement in CO? to 18, creatinine improvement to 1.19, and glucose reduction to 195. CXR showed subtle left basilar interstitial/alveolar opacities concerning for early pneumonia or pneumonitis, correlated with an up-trending WBC of 12.9 the following morning. Ceftriaxone and azithromycin were initiated for possible CAP. By 01/21, the patient reported feeling significantly improved, with resolution of her mild abdominal discomfort and no further nausea or vomiting. Her DKA had fully resolved. During education discussions, she expressed concern about resuming her insulin pump, citing recurrent hypoglycemia at home and lack of timely endocrine follow-up. She strongly preferred transitioning to subcutaneous long-acting and short-acting insulin until she meets with her appliance fixer next week. After counseling, she was transitioned to a basalbolus regimen with good tolerance in the hospital. Blood pressure elevations were noted, and she was started on amlodipine 5 mg daily and lisinopril 10 mg daily, with documented improvement prior to discharge. She remained clinically stable, tolerating PO, completing diabetes education, and expressing full understanding of her discharge insulin plan. She is safe for discharge home today. She will continue on cefuroxime for pneumonia. Lispro insulin 5units TIDWM, High dose SSI, 30 units of lantus. Patient advised to keep BP and blood sugar logs to take to follow up appts. Discharge Note New Diagnosis: DKA/Pneumonia New Medications:She will continue on cefpodoxime and azithromycin for pneumonia. Lispro insulin 5units TIDWM, High dose SSI, 30 units of lantus/lisinopril 10mg daily, amlodipine 5mg daily. Follow Up: PCP/endocrinology I spent 35 minutes [id number] with the patient on the day of discharge performing discharge exam, discussing hospital stay and discharge instructions with patient and caregivers, preparation of discharge records, prescriptions & referral forms and addressing any questions/concerns the patient had as documented above. - Vitals & Intake/Output Vital Signs: Vital Signs Temperature 97.8 F 01/22/25 11:11 Pulse Rate 101 H 01/22/25 11:00 Respiratory Rate 21 01/22/25 11:00 Blood Pressure 159/73 01/22/25 11:11 O2 Sat by Pulse Oximetry 98 01/22/25 11:00 Intake & Output: Intake & Output 01/19/25 01/20/25 01/21/25 01/22/25 11:59 11:59 11:59 11:59 Intake Total 2796 3231 Output Total 675 2000 Balance 2121 1231 Weight 72.8 kg - Lab Result Diagrams: 01/22/25 05:35 01/22/25 05:35 Lab Results-Last 24 Hrs: Lab Results-Last 24 Hours 01/21/25 01/21/25 01/21/25 Range/Units 12:13 13:15 14:40 WBC (3.98-10.04) x10^3/uL RBC (3.93-5.22) x10^6/uL Hgb (11.2-15.7) g/dL Hct (34.1-44.9) % MCV (79.4-94.8) fL MCH (25.6-32.2) pg MCHC (32.2-35.5) g/dL RDW (11.7-14.4) % Plt Count (182-369) x10^3/uL MPV (9.4-12.3) fL Gran % (34.0-71.1) % Immature Gran % (Auto) (0.001-0.429) % Nucleat RBC Rel Count (0.00-0.2) % Eos # (Auto) (0.04-0.36) x10^3/uL Immature Gran # (Auto) (0.001-0.031) x10^3u/L Absolute Lymphs (auto) (1.18-3.74) x10^3/uL Absolute Monos (auto) (0.24-0.86) x10^3/uL Absolute Nucleated RBC (0.00-0.012) x10^3u/L Lymphocytes % (19.3-51.7) % Monocytes % (4.7-12.5) % Eosinophils % (0.7-5.8) % Basophils % (0.1-1.2) % Absolute Granulocytes (1.56-6.13) x10^3/uL Basophils # (0.01-0.08) x10^3/uL Sodium 129 L (135-145) mmol/L Potassium 5.5 H D (3.5-5.1) mmol/L Chloride 106 (98-107) mmol/L Carbon Dioxide 16 L* (22-30) mmol/L Anion Gap 13.2 (5-15) MEQ/L BUN 19 H (7-17) mg/dL Creatinine 0.95 (0.52-1.04) mg/dL Estimated GFR 78.2 ML/MIN Glucose 204 H (74-106) mg/dL POC Glucometer 117 H 151 H (74 to 106) mg/dL Calcium 8.4 (8.4-10.2) mg/dL Total Bilirubin (0.2-1.3) mg/dL AST (14-36) U/L ALT (0-35) U/L Alkaline Phosphatase (38-126) U/L Serum Total Protein (6.3-8.2) g/dL Albumin (3.5-5.0) g/dL 01/21/25 01/21/25 01/21/25 Range/Units 14:41 16:06 17:35 WBC (3.98-10.04) x10^3/uL RBC (3.93-5.22) x10^6/uL Hgb (11.2-15.7) g/dL Hct (34.1-44.9) % MCV (79.4-94.8) fL MCH (25.6-32.2) pg MCHC (32.2-35.5) g/dL RDW (11.7-14.4) % Plt Count (182-369) x10^3/uL MPV (9.4-12.3) fL Gran % (34.0-71.1) % Immature Gran % (Auto) (0.001-0.429) % Nucleat RBC Rel Count (0.00-0.2) % Eos # (Auto) (0.04-0.36) x10^3/uL Immature Gran # (Auto) (0.001-0.031) x10^3u/L Absolute Lymphs (auto) (1.18-3.74) x10^3/uL Absolute Monos (auto) (0.24-0.86) x10^3/uL Absolute Nucleated RBC (0.00-0.012) x10^3u/L Lymphocytes % (19.3-51.7) % Monocytes % (4.7-12.5) % Eosinophils % (0.7-5.8) % Basophils % (0.1-1.2) % Absolute Granulocytes (1.56-6.13) x10^3/uL Basophils # (0.01-0.08) x10^3/uL Sodium 132 L (135-145) mmol/L Potassium 4.2 D (3.5-5.1) mmol/L Chloride 106 (98-107) mmol/L Carbon Dioxide 19 L (22-30) mmol/L Anion Gap 10.3 (5-15) MEQ/L BUN 16 (7-17) mg/dL Creatinine 0.90 (0.52-1.04) mg/dL Estimated GFR 83.4 ML/MIN Glucose 137 H (74-106) mg/dL POC Glucometer 198 H 161 H (74 to 106) mg/dL Calcium 8.7 (8.4-10.2) mg/dL Total Bilirubin (0.2-1.3) mg/dL AST (14-36) U/L ALT (0-35) U/L Alkaline Phosphatase (38-126) U/L Serum Total Protein (6.3-8.2) g/dL Albumin (3.5-5.0) g/dL 01/21/25 01/21/2525 Range/Units 20:38 22:34 00:09 WBC (3.98-10.04) x10^3/uL RBC (3.93-5.22) x10^6/uL Hgb (11.2-15.7) g/dL Hct (34.1-44.9) % MCV (79.4-94.8) fL MCH (25.6-32.2) pg MCHC (32.2-35.5) g/dL RDW (11.7-14.4) % Plt Count (182-369) x10^3/uL MPV (9.4-12.3) fL Gran % (34.0-71.1) % Immature Gran % (Auto) (0.001-0.429) % Nucleat RBC Rel Count (0.00-0.2) % Eos # (Auto) (0.04-0.36) x10^3/uL Immature Gran # (Auto) (0.001-0.031) x10^3u/L Absolute Lymphs (auto) (1.18-3.74) x10^3/uL Absolute Monos (auto) (0.24-0.86) x10^3/uL Absolute Nucleated RBC (0.00-0.012) x10^3u/L Lymphocytes % (19.3-51.7) % Monocytes % (4.7-12.5) % Eosinophils % (0.7-5.8) % Basophils % (0.1-1.2) % Absolute Granulocytes (1.56-6.13) x10^3/uL Basophils # (0.01-0.08) x10^3/uL Sodium (135-145) mmol/L Potassium (3.5-5.1) mmol/L Chloride (98-107) mmol/L Carbon Dioxide (22-30) mmol/L Anion Gap (5-15) MEQ/L BUN (7-17) mg/dL Creatinine (0.52-1.04) mg/dL Estimated GFR ML/MIN Glucose (74-106) mg/dL POC Glucometer 153 H 168 H 116 H (74 to 106) mg/dL Calcium (8.4-10.2) mg/dL Total Bilirubin (0.2-1.3) mg/dL AST (14-36) U/L ALT (0-35) U/L Alkaline Phosphatase (38-126) U/L Serum Total Protein (6.3-8.2) g/dL Albumin (3.5-5.0) g/dL 01/22/25 01/22/25 01/22/25 Range/Units 02:36 03:17 04:13 WBC (3.98-10.04) x10^3/uL RBC (3.93-5.22) x10^6/uL Hgb (11.2-15.7) g/dL Hct (34.1-44.9) % MCV (79.4-94.8) fL MCH (25.6-32.2) pg MCHC (32.2-35.5) g/dL RDW (11.7-14.4) % Plt Count (182-369) x10^3/uL MPV (9.4-12.3) fL Gran % (34.0-71.1) % Immature Gran % (Auto) (0.001-0.429) % Nucleat RBC Rel Count (0.00-0.2) % Eos # (Auto) (0.04-0.36) x10^3/uL Immature Gran # (Auto) (0.001-0.031) x10^3u/L Absolute Lymphs (auto) (1.18-3.74) x10^3/uL Absolute Monos (auto) (0.24-0.86) x10^3/uL Absolute Nucleated RBC (0.00-0.012) x10^3u/L Lymphocytes % (19.3-51.7) % Monocytes % (4.7-12.5) % Eosinophils % (0.7-5.8) % Basophils % (0.1-1.2) % Absolute Granulocytes (1.56-6.13) x10^3/uL Basophils # (0.01-0.08) x10^3/uL Sodium (135-145) mmol/L Potassium (3.5-5.1) mmol/L Chloride (98-107) mmol/L Carbon Dioxide (22-30) mmol/L Anion Gap (5-15) MEQ/L BUN (7-17) mg/dL Creatinine (0.52-1.04) mg/dL Estimated GFR ML/MIN Glucose (74-106) mg/dL POC Glucometer 82 90 158 H (74 to 106) mg/dL Calcium (8.4-10.2) mg/dL Total Bilirubin (0.2-1.3) mg/dL AST (14-36) U/L ALT (0-35) U/L Alkaline Phosphatase (38-126) U/L Serum Total Protein (6.3-8.2) g/dL Albumin (3.5-5.0) g/dL 01/22/25 01/22/25 01/22/25 Range/Units 05:21 05:35 05:35 WBC 9.3 (3.98-10.04) x10^3/uL RBC 4.21 (3.93-5.22) x10^6/uL Hgb 12.1 (11.2-15.7) g/dL Hct 37.3 (34.1-44.9) % MCV 88.6 (79.4-94.8) fL MCH 28.7 (25.6-32.2) pg MCHC 32.4 (32.2-35.5) g/dL RDW 12.7 (11.7-14.4) % Plt Count 331 (182-369) x10^3/uL MPV 10.0 (9.4-12.3) fL Gran % 52.9 (34.0-71.1) % Immature Gran % (Auto) 0.2 (0.001-0.429) % Nucleat RBC Rel Count 0.0 (0.00-0.2) % Eos # (Auto) 0.15 (0.04-0.36) x10^3/uL Immature Gran # (Auto) 0.02 (0.001-0.031) x10^3u/L Absolute Lymphs (auto) 3.43 (1.18-3.74) x10^3/uL Absolute Monos (auto) 0.70 (0.24-0.86) x10^3/uL Absolute Nucleated RBC 0.00 (0.00-0.012) x10^3u/L Lymphocytes % 36.9 (19.3-51.7) % Monocytes % 7.5 (4.7-12.5) % Eosinophils % 1.6 (0.7-5.8) % Basophils % 0.9 (0.1-1.2) % Absolute Granulocytes 4.92 (1.56-6.13) x10^3/uL Basophils # 0.08 (0.01-0.08) x10^3/uL Sodium 132 L (135-145) mmol/L Potassium 3.9 (3.5-5.1) mmol/L Chloride 106 (98-107) mmol/L Carbon Dioxide 21 L (22-30) mmol/L Anion Gap 8.9 (5-15) MEQ/L BUN 9 (7-17) mg/dL Creatinine 0.71 (0.52-1.04) mg/dL Estimated GFR 110.9 ML/MIN Glucose 230 H (74-106) mg/dL POC Glucometer 210 H (74 to 106) mg/dL Calcium 8.7 (8.4-10.2) mg/dL Total Bilirubin 0.40 (0.2-1.3) mg/dL AST 28 (14-36) U/L ALT 13 (0-35) U/L Alkaline Phosphatase 86 (38-126) U/L Serum Total Protein 6.0 L (6.3-8.2) g/dL Albumin 3.1 L (3.5-5.0) g/dL 01/22/25 01/22/25 Range/Units 08:05 11:13 WBC (3.98-10.04) x10^3/uL RBC (3.93-5.22) x10^6/uL Hgb (11.2-15.7) g/dL Hct (34.1-44.9) % MCV (79.4-94.8) fL MCH (25.6-32.2) pg MCHC (32.2-35.5) g/dL RDW (11.7-14.4) % Plt Count (182-369) x10^3/uL MPV (9.4-12.3) fL Gran % (34.0-71.1) % Immature Gran % (Auto) (0.001-0.429) % Nucleat RBC Rel Count (0.00-0.2) % Eos # (Auto) (0.04-0.36) x10^3/uL Immature Gran # (Auto) (0.001-0.031) x10^3u/L Absolute Lymphs (auto) (1.18-3.74) x10^3/uL Absolute Monos (auto) (0.24-0.86) x10^3/uL Absolute Nucleated RBC (0.00-0.012) x10^3u/L Lymphocytes % (19.3-51.7) % Monocytes % (4.7-12.5) % Eosinophils % (0.7-5.8) % Basophils % (0.1-1.2) % Absolute Granulocytes (1.56-6.13) x10^3/uL Basophils # (0.01-0.08) x10^3/uL Sodium (135-145) mmol/L Potassium (3.5-5.1) mmol/L Chloride (98-107) mmol/L Carbon Dioxide (22-30) mmol/L Anion Gap (5-15) MEQ/L BUN (7-17) mg/dL Creatinine (0.52-1.04) mg/dL Estimated GFR ML/MIN Glucose (74-106) mg/dL POC Glucometer 215 H 182 H (74 to 106) mg/dL Calcium (8.4-10.2) mg/dL Total Bilirubin (0.2-1.3) mg/dL AST (14-36) U/L ALT (0-35) U/L Alkaline Phosphatase (38-126) U/L Serum Total Protein (6.3-8.2) g/dL Albumin (3.5-5.0) g/dL Micro Results-Entire Visit: Accuchecks Date 01/22/25 Date 01/22/25 Date 01/22/25 Date 01/22/25 Date 01/22/25 Date 01/21/25 Date 01/21/25 Date 01/21/25 Time 04:13 Time 03:17 Time 02:36 Time 00:09 Time 22:34 Time 20:38 Time 13:36 - Radiology Exams Ordered Rad Exams-Entire Visit: Radiology Procedures Category Date Time Status CHEST 1 VIEW (PORTABLE) Stat Exams 01/20/25 15:23 Completed - Procedures and Test Procedures and Tests throughout Hospitalization: Therapy Orders & Screens 01/20/25 19:40 Respiratory Therapy Consult ONCE Comment: Reason For Exam: Discharge Exam General Appearance: no apparent distress Neurologic Exam: alert, oriented x 3, cooperative Eye Exam: PERRL Ears, Nose, Throat Exam: normal ENT inspection Neck Exam: normal inspection Respiratory Exam: normal breath sounds, lungs clear Cardiovascular Exam: regular rate/rhythm, normal heart sounds Gastrointestinal/Abdomen Exam: soft, normal bowel sounds Pelvic Exam: deferred Rectal Exam: deferred Back Exam: normal inspection Extremity Exam: normal inspection Skin Exam: normal color Final Diagnosis/Problem List - Final Discharge Diagnosis/Problem (1) DKA (diabetic ketoacidosis) Current Visit: No Status: Acute Assessment & Plan: -Presenting glucose 579 mg/dL, AG 25.4, CO2 8, prerenal azotemia (Cr 1.33 ? 1.19). -Now resolved: anion gap closed, bicarbonate normalized, ketoacidosis cleared. -Trigger likely combination of insulin pump malfunction/non-use + physiological stress in context of possible early pneumonia. -Lispro 5 units TID with meals Lantus 30 untis HD SSI -Patient elects not to resume pump until endocrinology visit next week; reasoning includes recurrent home hypoglycemia and uncertainty about settings. -Check glucose before meals and at bedtime. -Strict sick-day protocol reviewed. -Hypoglycemia recognition/management. -When to notify PCP/Endocrinology. -Follow-up: Endocrinology next week to reassess pump vs. basalbolus regimen. -A1c: 10.66 indicates chronic poor glycemic control requiring intensive outpatient optimization. Code(s): E11.10 - TYPE 2 DIABETES MELLITUS WITH KETOACIDOSIS WITHOUT COMA (2) Pneumonia Current Visit: Yes Status: Acute Assessment & Plan: CXR: Subtle left basilar interstitial/alveolar opacities. WBC: 12.9 on 01/21. No cough or dyspnea but possible early pneumonitis contributing to physiologic stress and DKA onset. Continue on cefuroxime Code(s): J18.9 - PNEUMONIA, UNSPECIFIED ORGANISM (3) Type 1 diabetes Current Visit: Yes Status: Acute Assessment & Plan: see above (4) HLD (hyperlipidemia) Current Visit: Yes Status: Acute Assessment & Plan: continue statin Code(s): E78.5 - HYPERLIPIDEMIA, UNSPECIFIED (5) Anxiety Current Visit: Yes Status: Acute Assessment & Plan: continue home regimen Code(s): F41.9 - ANXIETY DISORDER, UNSPECIFIED (6) Fibromyalgia Current Visit: Yes Status: Acute Assessment & Plan: continue home regimen (7) HTN (hypertension) Current Visit: Yes Status: Acute Assessment & Plan: Elevated BPs observed during hospitalization; related to physiologic stress + volume fluctuations. Improved with initiation of antihypertensives. Amlodipine 5 mg daily. Lisinopril 10 mg daily. Home BP monitoring with log. Recheck renal function and BP at PCP visit within 1 week. Code(s): I10 - ESSENTIAL (PRIMARY) HYPERTENSION - Discharge Discharge Date: 01/22/25 Disposition: Home, Self-Care Condition: Good Prescriptions: New Pen Needle, Diabetic [[facility] [place]] See Rx Instructions .ROUTE .COMPLEX 30 Days #100 units Insulin Glargine,Hum.rec.anlog [Insulin Glargine Solostar] 30 unit SQ DAILY 30 Days #900 units MDD 30 Insulin Lispro [Insulin Lispro Sean Kwikpen] 5 unit SQ TIDWMEALS 30 Days #1890 units MDD 63 Amlodipine Besylate 5 mg [Norvasc 5 mg] 5 mg PO QAM 30 Days #30 tablet lisinopriL [Lisinopril] 10 mg PO DAILY 30 Days #30 tablet Glucagon [Glucagon Emergency Kit] See Rx Instructions .ROUTE .COMPLEX 30 Days #1 kit Cefpodoxime Proxetil 100 mg PO BID 5 Days #10 tab Azithromycin [Zithromax] 250 mg PO DAILY 1 Days #1 tablet Continue Medroxyprogesterone Acetate [Depo-Provera] 150 mg IM Q90D PARoxetine HCL [Paxil] 20 mg PO DAILY Pravastatin Sodium 40 mg PO DAILY Discontinued Insulin Aspart [Novolog] 1 unit SQ UD Gabapentin 100 mg PO DAILY Gabapentin 300 mg PO HS Gabapentin 200 mg PO LUNCH Follow up with: ALAN MORAN [Primary Care Provider, [facility]] BOO COSTA NP [NON-STAFF PHY W/O PRIVILEGES, UNKNOWN] - Call for Appointment Referral Note: Call Thursday for appt
[2025-01-22 14:06] VITALS: PULSE 102
== END 2025-01-22 13:47 | disposition home or self-care (01) ==
LOC: ED 14:28 → MED SURG 19:22 → ICU 21:30
PROVIDERS: ADMIT Internal Medicine; ATTEND Internal Medicine
DX: E11.10 Type 2 diabetes mellitus with ketoacidosis without coma (principal); J18.9 Pneumonia, unspecified organism; E78.5 Hyperlipidemia, unspecified; F41.9 Anxiety disorder, unspecified; M79.7 Fibromyalgia; I10 Essential (primary) hypertension; F17.200 Nicotine dependence, unspecified, uncomplicated; Z79.899 Other long term (current) drug therapy